=== PATIENT | male | born 1940 | race Caucasian/White ===

== ENCOUNTER 2019-09-23 14:07 | Outpatient (CLI) | payer MEDICARE, SELFPAY ==
--- NOTE | ~2019-09-23 | US_ITS ---
EXAMINATION: US art doppler w press LE BI DATE: 09/23/2019 15:04 INDICATION: Peripheral vascular disease. TECHNIQUE: Segmental pressures and plethysmographic and Doppler waveforms of the brachial and lower e xtremity arteries were obtained. COMPARISON: None. FINDINGS: Right and left brachial artery pressures of 102 mm Hg and 114 mm Hg, respectively, are concordant (no rmal difference <= 30 mmHg). The right high-thigh pressure index is 0.89 (normal > 1.2). The right ankle-brachial index (ANGELIQUE) is 0 .70 (normal >= 0.9-1.0). The right great toe-brachial index (TBI) is 0.57 (normal >= 0.65). The right lower extremity segmental pressure gradients are normal (normal gradients <= 20-30 mmHg between vel cent levels on the same leg or the same levels on the two legs). Arterial Doppler waveforms are at le ast triphasic in common femoral artery and superficial femoral artery and biphasic in popliteal arter y and at the ankle. The left high-thigh pressure index is 0.96. The left ANGELIQUE is 1.02. The left TBI is 0.51. The left lowe r extremity segmental pressure gradients are normal. Arterial Doppler waveforms are at least triphasi c in common femoral artery and superficial femoral artery and biphasic in popliteal artery and at the ankle. IMPRESSION: 1. Mildly decreased right ANGELIQUE and TBI, normal left ANGELIQUE, and mildly decreased left TBI, consistent wit h arterial occlusive disease. Reviewed, dictated and finalized at location A. IMPRESSION: 1. Mildly decreased right ANGELIQUE and TBI, normal left ANGELIQUE, and mildly decreased le ft TBI, consistent with arterial occlusive disease.
== END 2019-09-23 14:08 | disposition home or self-care (01) ==
PROVIDERS: PCP Internal Medicine; Visit Provider Internal Medicine
DX: I73.9 Peripheral vascular disease, unspecified (principal)
CPT/HCPCS: 93923

== ENCOUNTER → 2022-07-28 14:29 | Outpatient (CLI) | payer MEDICARE, SELFPAY ==
--- NOTE | ~2022-07-28 | CT_ITS ---
EXAMINATION: CT abdomen pelvis wo con DATE: 07/28/2022 14:47 INDICATION: Right flank pain. TECHNIQUE: Computed tomography (CT) of the abdomen and pelvis was performed without intravenous contr ast. Automated exposure control and iterative reconstruction technique were employed. The dose-length product was 867.15 mGy-cm. COMPARISON: None. FINDINGS: The visualized portions of the lung bases demonstrate mild atelectasis. There is elevation of left hemidiaphragm. There is mild atelectasis bilaterally. Calcified right lung nodules and calcif ied right hilar lymph nodes are consistent with old granulomatous disease. There are a few nodules in right lung measuring up to 6 mm. No pleural effusion. The heart size is normal. There are coronary a rtery calcifications. There are calcifications of aortic valve. No pericardial effusion. The liver is normal. There are changes of cholecystectomy. Calcifications in the spleen are consistent with old g ranulomatous disease. The pancreas, adrenal glands, and right kidney are normal. There is a 10 mm cys t in left kidney. There is no urolithiasis. The prostate is mildly enlarged. There is a right inguina l hernia containing fat. There are no dilated loops of bowel. The appendix is normal. There is calcif ied atherosclerosis of the aorta and many of the other arteries. There are no pathologically enlarged lymph nodes. There is no free intraperitoneal fluid. 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 There is mild thoracolumbar spondylosis. IMPRESSION: 1. No urolithiasis. 2. Right inguinal hernia containing fat. 3. 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 4. Pulmonary nodules measuring up to 6 mm, probably benign. Consider noncontrast low-dose chest CT in 6-12 months. Reviewed, dictated and finalized at location E. IMPRESSION: 1. No urolithiasis. 2. Right inguinal hernia containing fat. 3. 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 4. Pulmonary nodules measuring up to 6 mm, probably benign. Consider noncontras t low-dose chest CT in 6-12 months.
== END ==
PROVIDERS: PCP Internal Medicine; Visit Provider Internal Medicine
DX: K40.90 Unilateral inguinal hernia, without obstruction or gangrene, not specified as recurrent (principal); R91.8 Other nonspecific abnormal finding of lung field; I71.9 Aortic aneurysm of unspecified site, without rupture
CPT/HCPCS: 74176

== ENCOUNTER 2022-08-04 09:35 | Outpatient (CLI) | payer MEDICARE, SELFPAY ==
--- NOTE | 2022-08-04 11:00 | NEURO_ITS ---
Impression: # Complains of numbness of hands and decreased strength in muscles of hand on grasping the objects. # Left Carpal Tunnel Syndrome. # Left ulnar neuropathy. # Abnormal needle/EMG exam. Nerve Conduction Studies Anti Sensory Summary Table Stim Site NR Peak (ms) P-T Amp (?V) Site1 Site2 Delta-P (ms) Dist (cm) Richi (m/s) Left Median Anti Sensory (2-3nd Digit) Wrist 4.4 36.9 Wrist 2-3nd Digit 4.4 14.0 32 Wrist 4.5 35.1 Wrist 2-3nd Digit 4.4 14.0 32 Left Radial Anti Sensory (Base 1st Digit) Wrist 2.5 17.4 Wrist Base 1st Digit 2.5 0.0 Left Ulnar Anti Sensory (5th Digit) NO RESPONSE Wrist NR Wrist 5th Digit 14.0 Motor Summary Table Stim Site NR Onset (ms) O-P Amp (mV) Site1 Site2 Delta-0 (ms) Dist (cm) Richi (m/s) Left Median Motor (Abd Poll Brev) Wrist 5.1 2.3 Elbow Wrist 6.2 31.0 50 Elbow 11.3 1.7 Left Ulnar Motor (Abd Dig Minimi) Wrist 3.2 3.2 A Elbow Wrist 10.6 31.0 29 A Elbow 13.8 1.3 B Elbow Wrist 6.6 25.0 38 B Elbow 9.8 1.4 F Wave Studies NR F-Lat (ms) L-R F-Lat (ms) Left Median (Mrkrs) (Abd Poll Brev) 33.92 Left Ulnar (Mrkrs) (Abd Dig Min) 32.11 EMG Side Muscle Nerve Root Ins Act Fibs Amp Dur Recrt Comment Left 1stDorInt Ulnar C8-T1 Nml Nml Incr >12ms Reduced Left Ext Indicis Radial (Post Int) C7-8 Nml Nml Nml Nml Nml Left Ext Digitorum Radial (Post Int) C7-8 Nml Nml Nml Nml Nml Left BrachioRad Radial C5-6 Nml Nml Nml Nml Nml Left PronatorTeres Median C6-7 Nml Nml Incr >12ms Reduced Left Abd Poll Brev Median C8-T1 Nml Nml Incr >12ms Reduced Left ABD Dig Min Ulnar C8-T1 Nml Nml Incr >12ms Reduced MTDD
== END 2022-08-04 09:36 | disposition home or self-care (01) ==
LOC: ANHNEURO 09:37
PROVIDERS: PCP Internal Medicine; Visit Provider Internal Medicine
DX: G56.22 Lesion of ulnar nerve, left upper limb (principal); G56.02 Carpal tunnel syndrome, left upper limb
CPT/HCPCS: 95886; 95909

== ENCOUNTER 2022-09-05 21:15 | Observation (INO) | payer MEDICARE, SELFPAY ==
--- NOTE | ~2022-09-05 | XR_ITS ---
XR chest 2V DATE: 09/05/2022 21:59 INDICATION: Generalized weakness TECHNIQUE: PA and lateral views COMPARISON: None FINDINGS: Normal heart size. No hilar or mediastinal enlargement. Bilateral hyperinflation and relative flattening of the diaphragm, increased retrosternal airspace, s uggesting COPD. Probable linear scarring in the right upper lung. No pulmonary infiltrate or consolid ation, pleural effusion or pulmonary vascular congestion or pneumothorax is detected. Degenerative changes of the thoracic and lumbar spine. Osteopenia. IMPRESSION: Bilateral hyperinflation suggesting COPD Probable mild right upper lobe scarring No active cardiopulmonary disease Reviewed, dictated and finalized at location A.
--- NOTE | ~2022-09-05 | CT_ITS ---
EXAMINATION: CTA chest PE protocol DATE: 09/06/2022 01:26 INDICATION: Shortness of breath and back pain TECHNIQUE: Computed tomography angiography (CTA) of the chest was performed with 100 mL Omnipaque-350 intravenous contrast timed to evaluate the pulmonary arteries. Coronal maximum intensity projection 3D-reconstructions were created by the technologist. The dose-length product (DLP) was 740.88 mGy-cm. Automated exposure control and iterative reconstruction technique were employed. COMPARISON: None. FINDINGS: The pulmonary arteries are well-opacified. No pulmonary embolism is identified. Respiratory motion artifact mildly limits evaluation in the lung bases. There is moderate emphysema. There is a 1.5 cm spiculated nodule of the right upper lobe on image 26. A second spiculated right upper lobe no dule is seen on image 28 which measures 12 mm. There is right hilar and right paratracheal lymphadeno roberto. There is mild dependent atelectasis. No pleural effusion or pneumothorax. The heart size is no rmal. There is calcified coronary artery atherosclerosis. Punctate calcifications in an otherwise nor mal spleen likely represent healed granulomatous disease. Changes of cholecystectomy are noted. IMPRESSION: 1. No pulmonary embolus identified. 2. 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 CT-guided biopsy is recommended. Reviewed, dictated and finalized at location A. IMPRESSION: 1. No pulmonary embolus identified. 2. Right upper lobe nodules and right hilar and paratracheal lymphadenopathy co ncerning for primary bronchogenic carcinoma with lymph node metastases. CT-guid ed biopsy is recommended.
--- NOTE | ~2022-09-05 | CT_ITS ---
EXAMINATION: CT brain wo con INDICATION: Weakness COMPARISON: 02/04/2012 TECHNIQUE: Standard unenhanced head CT. The dose-length product (DLP) was 681.00 mGy-cm. The mA was a djusted according to patient size. Iterative reconstruction technique was employed. FINDINGS: There is no acute intraparenchymal hemorrhage. No evidence of mass lesion. No evidence of a cute infarction. 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 There is mild periventri cular and subcortical hypodensity probably related to small vessel ischemic disease. There is mild pr ominence of the sulci and ventricles related to cerebral atrophy. Intracranial calcified cerebral ath erosclerosis is noted. There are no extra-axial collections. There is no mass effect or midline shift . Changes in the globes are likely from ocular lens surgery. There is mild mucosal thickening of the paranasal sinuses. IMPRESSION: 1. No acute intracranial abnormality. 2. Age related findings. Reviewed, dictated and finalized at location A.
--- NOTE | 2022-09-05 21:22 | ECG_ITS ---
Measurements Intervals [place] Lee Rate: 101 P: 68 WY: 175 QRS: 54 QRSD: 98 T: 52 QT: 330 QTc: 429 Interpretive Statements SINUS TACHYCARDIA LOW QRS VOLTAGE IN PRECORDIAL LEADS BORDERLINE ECG NO PREVIOUS ECG AVAILABLE FOR COMPARISON Electronically Signed On 09-06-2022 7:10:40 CDT by Camilo Resendiz D.O.
[2022-09-05 21:23] VITALS: BP 114/70; PULSE 106; RESP 18; TEMP 37; O2SAT 92
[2022-09-05 22:00] VITALS: BP 141/74; PULSE 81; RESP 18; O2SAT 99
[2022-09-05 23:00] LABS: Basophils Percent Auto 0.5 % (0.2-1.2); Eosinophils Absolute Auto 0.1 K/mm3 (0-0.3); Eosinophils Percent Auto 1.5 % (0-4.4); Hematocrit 40.2 % (42.0-52.0); Immature Granulocyte Absolute 0.02 K/mm3 (0.00-0.031); Immature Granulocyte Percent A 0.3 % (0-0.5); Lymphocytes Absolute Auto 1.83 K/mm3 (0.9-3.2); Lymphocytes Percent Auto 23.1 % (18.3-44.2); Mean Corpuscular HGB Conc 32.3 g/dl (32-36); Mean Corpuscular Volume 89.7 fl (80-100); Mean Platelet Volume 10.1 fl (7.4-10.4); Monocytes Absolute Auto 0.7 K/mm3 (0.1-0.6); Monocytes Percent Auto 9.4 % (2.6-8.5); Neutrophils Absolute Auto 5.2 K/mm3 (1.3-6.7); Neutrophils Percent Auto 65.2 % (45.5-73.1); Platelet Count Result 189 k/mm3 (150-375); Red Blood Count 4.48 M/mm3 (4.6-6.20); White Blood Count 7.9 K/mm3 (4.5-10.0)
[2022-09-05 23:05] LABS: Appearance Urine Clear (Clear); Bacteria Urine None Seen /hpf; Bilirubin Urine Negative (Negative); Blood Urine Negative (Negative); Color Urine Yellow (Yellow); Glucose Urine UA Negative (Negative); Ketones Urine Trace mg/dL (Negative); Leukocyte Esterase Ur Negative LEU/UL (Negative); Nitrate Urine Negative (Negative); Protein Urine Trace mg/dL (Negative); RBC Urine 0-2 /hpf (0-2); Specific Grav Ur 1.023 (1.001-1.035); Squamous Epithelial Cell Urine None seen /hpf (Few); WBC Urine 0-5 /hpf; pH Urine 5.5 (5.0-9.0)
[2022-09-05 23:06] LABS: Add Urine Microscopic? YES
[2022-09-05 23:10] LABS: Alanine Aminotransferase 20 U/L (6-50); Albumin Level 4.2 g/dL (3.5-5.1); Alkaline Phosphatase 76 U/L (38-126); Anion Gap 7 mmol/L (8-16); Aspartate Amino Transferase 23 U/L (17-59); Bilirubin,Total 0.3 mg/dL (0.2-1.3); Blood Urea Nitrogen 31 mg/dL (9-20); Carbon Dioxide 27 mmol/L (22-30); Chloride 103 mmol/L (98-107); Estimated CRCL calculation 43 ml/min; Estimated Glomerular Filt Rate 49; Glucose 218 mg/dL (65-110); Potassium 4.7 mmol/L (3.4-5.0); Sodium 137 mmol/L (137-145)
--- NOTE | 2022-09-05 23:10 | ED.WEAKNESS ---
HPI - Weakness General Chief complaint: Weakness <YUAN Nicholson Last Filed: 09/06/22 03:00> Stated complaint: Generalized weakness <YUAN Nicholson Last Filed: 09/06/22 03:00> Time Seen by Provider: 09/05/22 22:46 <YUAN Nicholson Last Filed: 09/06/22 03:00> Source: patient <YUAN Nicholson Last Filed: 09/06/22 03:00> Mode of arrival: wheelchair <YUAN Nicholson Last Filed: 09/06/22 03:00> Limitations: no limitations <YUAN Nicholson Last Filed: 09/06/22 03:00> History of Present Illness HPI Narrative: This is a 82-year-old male that presents to the emergency department for generalized weakness. Noted over the last couple of days. Reports he feels lightheaded when he stands up. He has not been able to get around much because he feels so weak. His family member reports he has been getting short of breath. He reports he has been experiencing some mid back pain on the right side that has been present for about a month. No recent injuries. Reports the pain is worse with movement and relieved with rest. Denies fever, chest pain, abdominal pain, vomiting, or dysuria. <YUAN Nicholson Last Filed: 09/06/22 03:00> Related Data Home medications: Home Medications Medication Instructions Recorded Confirmed citalopram 20 mg tablet 20 mg PO DAILY 09/06/22 09/06/22 glimepiride 4 mg tablet 4 mg PO BID 09/06/22 09/06/22 lisinopril 20 mg tablet 20 mg PO DAILY 09/06/22 09/06/22 lorazepam 0.5 mg tablet 0.5 mg PO BID 09/06/22 09/06/22 metformin 1,000 mg tablet 1,000 mg PO BID 09/06/22 09/06/22 rosuvastatin 20 mg tablet 20 mg PO DAILY 09/06/22 09/06/22 <YUAN Nicholson Last Filed: 09/06/22 03:00> Allergies/Adverse reactions: Allergies Allergy/AdvReac Type Severity Reaction Status Date / Time codeine Allergy Verified 02/04/12 22:00 niacin Allergy Verified 02/04/12 22:00 <Cecille Guillory PA-C - Last Filed: 09/06/22 03:00> Review of Systems Review of Systems: CONSTITUTIONAL: Denies fever EYES: Denies visual changes ENT: Denies rhinorrhea, congestion, sore throat CARDIOVASCULAR: Denies chest pain, or edema. RESPIRATORY: Denies cough or dyspnea. GASTROINTESTINAL: Denies abdominal pain, nausea, vomiting GENITOURINARY: Denies dysuria MUSCULOSKELETAL: Reports back pain, joint pain, and myalgia. NEUROLOGIC: Reports generalized weakness. Denies numbness <Cecille Guillory PA-C - Last Filed: 09/06/22 03:00> All systems reviewed & are unremarkable except as noted in HPI and below <Cecille Guillory PA-C - Last Filed: 09/06/22 03:00> PMFSH Past Medical History Medical History: Medical History (Updated 09/06/22 @ 17:33 by Nancy Hardin MD) History of diabetes mellitus History of hypertension <Cecille Guillory PA-C - Last Filed: 09/06/22 03:00> Social History Social History: Social History (Updated 09/05/22 @ 23:20 by Cecille Guillory PA-C) Smoking packs per day: 0.25 Smoking cigarettes per day: 5.0 Years smoked: 60 Smoking pack-years: 15.00 Smoking status: Current every day smoker Tobacco type: cigarettes Second hand tobacco smoke exposure: Yes Alcohol intake: never Substance use: never Substance use type: does not use Lack of Transportation: No Lack of Food: Never True Current Housing: I Have Housing Concerned About Future Housing: No Difficulty Paying Gas/Electric Bills: No Difficulty Paying for Meds: No Currently Unemployed: No Education: Grade School Difficulty w/ Childcare or Family Care: No Spiritual care concerns: No <Cecille Guillory PA-C - Last Filed: 09/06/22 03:00> Exam Narrative: GENERAL: Elderly, well-nourished, and in no acute distress. HEAD: Normocephalic, atraumatic. EYES: PERRLA and EOMI. ENT: Nares clear, no rhinorrhea or epistaxis. Mucous membranes moist. Oropharynx without tonsillar hypertrophy exudate or other lesions. Bilat
[2022-09-05 23:31] LABS: Lactic Acid Reflex 1.1 mmol/L (0.7-2.0)
[2022-09-05 23:31] LABS: INR 1.1; Prothrombin Time 14.2 Seconds (11.1-14.7)
[2022-09-05 23:32] LABS: Partial Thromboplastin Time 31.5 SECONDS (22.3-36.8)
[2022-09-05 23:35] LABS: NT Pro B Type Natriuretic Pept < 20 pg/mL (19.9-100)
[2022-09-05 23:47] LABS: Troponin I < 0.012 ng/mL (0.000-0.034)
[2022-09-05 23:54] LABS: D Dimer 0.76 ug/mL (<0.48)
[2022-09-05 23:58] LABS: Lipase 153 U/L (23-300)
[2022-09-06] VITALS (15 sets, daily range): BP systolic 110–140; BP diastolic 66–96; PULSE 77–100; RESP 14–22; TEMP 36.2–36.9; O2SAT 91–97; BMI 29.7
[2022-09-06] MEDS: IPRATROPIUM BR 0.02% INH SOLN 0.5 MG/2.5 ML VIAL INHALATION ×2 (00:25→13:52)
[2022-09-06] MEDS: ALBUTEROL SULFATE NEB 2.5 MG/3 ML INH INHALATION ×3 (00:25→20:37)
[2022-09-06 00:32] LABS: Alveolar/Arterial O2 Gradient 43.6 mmHg; Base Excess ABG 0.2 mEq/l (+/-2.0); Carboxyhemoglobin 3.1 % THb (0-2.0); Fractional Inspired Oxygen 21 %; HCO3 ABG 24.7 mEq/l (22.0-26.0); Methemoglobin ABG 0.1 %THb (0-1.5); Oxygen Content ABG 16.6 %vol (16.0-22.0); Oxygen Saturation ABG 90.7 % (95.0-100.0); PCO2 ABG 39.8 mmHg (35.0-45.0); PO2 ABG 58.5 mmHg (80.0-100.0); PO2 FiO2 Ratio Arterial Blood 2.79 %; Reduced Hemoglobin 10.8 %THb (0-5.0); Total Hemoglobin 13.7 g/dL (12.0-18.0); pH ABG 7.411 (7.350-7.450)
[2022-09-06 00:35] LABS: Device ROOM AIR; Modified Allen's Test Pass; Site Drawn LEFT RADIAL
[2022-09-06] MEDS: methylPREDNISolone SOD SUCC 125 MG VIAL IV PUSH (03:12)
[2022-09-06 04:01] LABS: Glucose Point of Care 161 mg/dl (65-105)
--- NOTE | 2022-09-06 04:31 | ADMGEN ---
This patient, Michele Watson, was admitted to [facility] Surg Room 322-01. Patient/family oriented to hospital policies and general routines including ID bracelet, bed and alarms, visiting hours, pain management, procedures, bathroom and other care routines, personal items, smoking policy, room service/diet, and visiting hours. Information on how to activate the Rapid Response Team has been discussed. Patient/Family are encouraged to report perceived risks to care and to ask questions if they do not understand what they are told or what they should do.
[2022-09-06 08:05] LABS: Glucose Point of Care 269 mg/dl (65-105)
--- NOTE | 2022-09-06 08:43 | PM.IMHP ---
H&P: HPI History of Present Illness Date/Time: 09/06/22 08:43 Chief Complaint: Shortness of breath Narrative: This is a 82-year-old male that presents to the emergency department for generalized weakness.? Noted over the last couple of days. Reports he feels lightheaded when he stands up. He has not been able to get around much because he feels so weak. His family member reports he has been getting short of breath. He reports he has been experiencing some mid back pain on the right side that has been present for about a month. No recent injuries. Reports the pain is worse with movement and relieved with rest. Denies fever, chest pain, abdominal pain, vomiting, or dysuria. Review of Systems Review of Systems: - CONSTITUTIONAL: Denies weight loss, fever and chills. - HEENT: Denies changes in vision and hearing - RESPIRATORY: Reports some sOB and cough. Which is chronic - CV: Denies palpitations and CP. - GI: Denies abdominal pain, nausea, vomiting and diarrhea. - : Denies dysuria and urinary frequency. - MSK: Denies myalgia and joint pain. - SKIN: Denies rash and pruritus. - NEUROLOGICAL: Denies headache and syncope. - PSYCHIATRIC: Denies recent changes in mood. Denies anxiety and depression. [facility] Past Medical History Medical History (Updated 09/06/22 @ 03:00 by Cecille Guillory PA-C) History of diabetes mellitus History of hypertension Social History Social History (Updated 09/05/22 @ 23:20 by Cecille Guillory PA-C) Smoking packs per day: 0.25 Smoking cigarettes per day: 5.0 Years smoked: 60 Smoking pack-years: 15.00 Smoking status: Current every day smoker Tobacco type: cigarettes Second hand tobacco smoke exposure: Yes Alcohol intake: never Substance use: never Substance use type: does not use Lack of Transportation: No Lack of Food: Never True Current Housing: I Have Housing Concerned About Future Housing: No Difficulty Paying Gas/Electric Bills: No Difficulty Paying for Meds: No Currently Unemployed: No Education: Grade School Difficulty w/ Childcare or Family Care: No Spiritual care concerns: No Meds Home Medications and Allergies Allergies Allergy/AdvReac Type Severity Reaction Status Date / Time codeine Allergy Verified 02/04/12 22:00 niacin Allergy Verified 02/04/12 22:00 Vital Signs Vital Signs - 24 hr 09/05/22 21:23 09/06/22 00:26 09/05/22 22:00 Temperature 98.6 F Pulse Rate 106 H 88 81 Respiratory Rate 18 16 18 Blood Pressure 114/70 141/74 H Pulse Oximetry 92 99 Oxygen Delivery Room Air 09/06/22 01:06 09/06/22 02:11 09/06/22 03:59 Temperature Pulse Rate 84 94 89 Respiratory Rate 16 16 22 H Blood Pressure 140/78 118/88 110/68 Pulse Oximetry 97 92 97 Oxygen Delivery 09/06/22 04:33 09/06/22 05:20 Temperature 98.4 F Pulse Rate 84 87 Respiratory Rate 20 Blood Pressure 111/96 H Pulse Oximetry 94 96 Oxygen Delivery Room Air Exam Narrative: GENERAL: Elderly, well-nourished, and in no acute distress. HEAD: Normocephalic, atraumatic. EYES: PERRLA and EOMI. ENT: Nares clear, no rhinorrhea or epistaxis. Mucous membranes moist. NECK: Supple. No adenopathy or masses. CHEST: No respiratory distress.? No wheezes no rales or rhonchi HEART: Regular rate and rhythm. No murmur heard. Normal peripheral pulses. ABDOMEN: Soft, nontender, nondistended, normal active bowel sounds. BACK: No midline spinal tenderness EXTREMITIES: Normal range of motion. No edema.? Strength equal in bilateral upper and lower extremities (5/5) SKIN: Warm, dry, no rash. NEURO: No focal deficits. Alert and oriented x3.? Cranial nerves II through XII grossly intact PSYCH: Normal mood and affect H&P: Results Labs Labs: Short CBC 09/05/22 Range/Units 22:53 WBC 7.9 (4.5-10.0) K/mm3 Hgb 13.0 L (14.0-18.0) g/dL Hct 40.2 L (42.0-52.0) % Plt Count 189 (150-375) k/mm3 [facility] 09/05/22 22:53 Sod
[2022-09-06 09:35] LABS: Hemoglobin A1C 6.8 % (<5.7)
[2022-09-06] MEDS: ENOXAPARIN 40 MG/0.4 ML SYRINGE SUB-Q (10:45)
[2022-09-06 11:53] LABS: Glucose Point of Care 448 mg/dl (65-105)
[2022-09-06] MEDS: INSULIN ASPART (*BKC) 100 UNITS/ML 15 UNITS SUB-Q (12:11)
[2022-09-06] MEDS: methylPREDNISolone SOD SUCC 40 MG VIAL IV PUSH (12:15)
--- NOTE | 2022-09-06 13:50 | PCRCNOTE ---
Window of time for administration has passed. See next scheduled administration.
--- NOTE | 2022-09-06 16:10 | PM.CNPUL ---
Assessment and Plan Assessment and plan (1) COPD exacerbation: Code(s): J44.1 - Chronic obstructive pulmonary disease with (acute) exacerbation Status: Acute Assessment and Plan: This patient has a new diagnosis of COPD with exacerbation. He has smoked since age 18, a total of 66 years and many of those years he smoked 3 packs per day, probably 15 years. Several days prior to admission he had generalized weakness, low saturation, increased coughing with white sputum production. He had a COPD exacerbation and is on no controller medications at home. He required oxygen on admission, now is saturation is normal without supplemental oxygen. After admission he was found to have abnormal nodules on his chest CT. Has 2 nodules in the right upper lobe and mediastinal lymphadenopathy and hilar nodules. I think the best option for this patient is to be stabilized, go home with a home walk study before leaving to assure that he has oxygen if he needs it. He needs to be on COPD controller medication. He needs an outpatient PET scan to determine best location for a biopsy. start Trelegy 100, one puff a day, rinse and spit. (2) Acute respiratory failure with hypoxia: Code(s): J96.01 - Acute respiratory failure with hypoxia Status: Acute Assessment and Plan: He came in the hospital hypoxic, required a couple of L which has now been weaned off. I think the low oxygen was due to underlying COPD with a COPD exacerbation. Home O2 evaluation prior to discharge (3) Multiple pulmonary nodules determined by computed tomography of lung: Code(s): R91.8 - Other nonspecific abnormal finding of lung field Status: Acute Assessment and Plan: High suspicion for bronchogenic carcinoma. He has got nodules that are in the range that he could have them biopsied CT guidance while he is here but if he could get an EBUS with mediastinal biopsy this would stage and diagnose at the same time. (4) Tobacco abuse: Code(s): Z72.0 - Tobacco use Status: Acute Assessment and Plan: smoked for 64 years, also uses chewing tobacco We briefly discussed tobacco cessation, and his daughter asked if he could chew while he is trying to stop smoking. This is a great plan is on the eventually gets off chewing tobacco as well. Soon tobacco is associated with head neck cancer. He also needs avoid secondhand smoke, his smokes. . (5) Obstructive sleep apnea: Code(s): G47.33 - Obstructive sleep apnea (adult) (pediatric) Status: Acute Assessment and Plan: Obstructive sleep apnea for 10 years, using his own CPAP machine in the hospital which is about 5 years old. He may need a repeat study. He does not awaken feeling refreshed. His obstructive sleep apnea may improve when he gets treatment for COPD because he has COPD obstructive sleep apnea overlap. Continue to use CPAP; he benefits from use. (6) History of asbestosis: Code(s): Z87.09 - Personal history of other diseases of the respiratory system Status: Acute Assessment and Plan: I do not see ILD, pleural plaques or other definitive evidence of asbestos exposure. He has this diagnosis. He had a settlement years ago for this condition. Asbestos and tobacco have a log rhythmic increase affecting causing cancer. His daughter said he had a history of mesothelioma but the patient corrected this information, he has a history of asbestosis. Plan 1. Add COPD controller meds 2. Home O2 eval prior to discharge 3. out patient PET scan; Dr Coleman
[2022-09-06] MEDS: LORazepam (*CRX) 0.5 MG TABLET PO (17:24)
[2022-09-06 17:25] LABS: Glucose Point of Care 395 mg/dl (65-105)
[2022-09-06] MEDS: INSULIN ASPART (*BKC) 100 UNITS/ML SUB-Q ×2 (17:25)
[2022-09-06] MEDS: DOXYCYCLINE HYCLATE 100 MG TABLET PO (21:19)
[2022-09-06] MEDS: INSULIN GLARGINE (*BKC) 100 UNITS/ML 13 UNITS SUB-Q (21:45)
[2022-09-06 21:57] LABS: Glucose Point of Care 316 mg/dl (65-105)
[2022-09-07] VITALS (11 sets, daily range): BP systolic 110; BP diastolic 64; PULSE 71–118; RESP 16; TEMP 36.4; O2SAT 91–97
[2022-09-07] MEDS: ALBUTEROL SULFATE NEB 2.5 MG/3 ML INH INHALATION ×2 (02:12→07:45)
[2022-09-07 07:45] LABS: Glucose Point of Care 247 mg/dl (65-105)
[2022-09-07] MEDS: FLUTICASONE/UMECLIDIN/VILANTER 100-62.5-25 MCG ELLIPTA 1 PUFF INHALATION (07:48)
[2022-09-07] MEDS: INSULIN ASPART (*BKC) 100 UNITS/ML SUB-Q ×2 (09:12)
[2022-09-07] MEDS: DOXYCYCLINE HYCLATE 100 MG TABLET PO (09:12)
[2022-09-07] MEDS: CITALOPRAM HYDROBROMIDE 20 MG TABLET PO (09:13)
[2022-09-07] MEDS: ROSUVASTATIN 10 MG TABLET 20 MG PO (09:13)
[2022-09-07] MEDS: LORazepam (*CRX) 0.5 MG TABLET PO (09:13)
[2022-09-07] MEDS: ENOXAPARIN 40 MG/0.4 ML SYRINGE SUB-Q (09:13)
[2022-09-07] MEDS: lisinopriL 20 MG TABLET PO (09:13)
--- NOTE | 2022-09-07 09:59 | HOMEO2EVAL ---
Evaluation was performed at [facility] Home Oxygen Evaluation RC: Home Oxygen (O2) Evaluation Start: 09/06/22 17:35 Freq: ONCE Status: Active Protocol: RPE Activity Type Activity Date Activity User E-sign Co-sign Detail Recorded Client Recorded Date Recorded By Document 09/07/22 09:15 [facility] [email or web address] 09/07/22 09:59 [facility] Document 09/07/22 09:20 [facility] [email or web address] 09/07/22 09:59 [facility] Document 09/07/22 09:40 [facility] [email or web address] 09/07/22 09:59 [facility] 09/07/22 09/07/22 09/07/22 09:15 09:20 09:40 Home O2 Evaluation [Oxygen] -Test Phase Resting Exercise Resting -Oxygen Delivery Room Air Room Air Room Air [Pulse Oximetry] -Pulse Oximetry (90-100 %) 92 91 92 [Pulse Rate] -Pulse Rate (60-100 beats/min) 110 H 118 H 112 H [Evaluation] -Activity Tolerance Good Good [Charges] -Treatment Charges O2 Evaluation - Inpatient
--- NOTE | 2022-09-07 09:59 | PCRCNOTE ---
Home eval complete. Patient does not require home O2 at this time. RN notified.
--- NOTE | 2022-09-07 10:00 | PCPTNOTE ---
On 09/07/22, the student, CHANTALE Mak, provided care and completed [facility] documentation on this patient. I have reviewed the student's documentation and agree with the findings.
--- NOTE | 2022-09-07 11:16 | PM.DS ---
DS: Admitting Diagnosis Discharge Date 09/07/2022 Admitting Diagnosis Shortness of breath DS: Discharge Diagnosis Discharge Diagnosis (1) Acute respiratory failure with hypoxia: Code(s): J96.01 - Acute respiratory failure with hypoxia Status: Acute (2) Generalized weakness: Code(s): R53.1 - Weakness Status: Acute (3) COPD exacerbation: Code(s): J44.1 - Chronic obstructive pulmonary disease with (acute) exacerbation Status: Acute (4) Lung mass: Code(s): R91.8 - Other nonspecific abnormal finding of lung field Status: Acute Plan Generalized weakness/dyspnea on exertion noted to be mildly hypoxic on room air upon presentation to the ER. Also noted to be wheezy. Treated as COPD exacerbation. Currently not wheezy so will avoid further Solu Medrol. Continue bronchodilators. Had antibiotic with doxycycline. Will PT OT Generalized weakness/dyspnea on exertion COPD exacerbation will continue DuoNeb and antibiotics. As he is not wheezy will avoid any Solu-Medrol particularly with history of diabetes 1.4 cm right upper lobe spiculated nodule CTA with findings of lymphadenopathy consult for further workup elevated D-dimer: CT is negative for PE. 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 DVT prophylaxis Lovenox DS: Summary Hospital Course Reason for hospitalization: Shortness of breath Narrative: This is a 82-year-old male that presents to the emergency department for generalized weakness.? Noted over the last couple of days. Reports he feels lightheaded when he stands up. He has not been able to get around much because he feels so weak. His family member reports he has been getting short of breath. He reports he has been experiencing some mid back pain on the right side that has been present for about a month. No recent injuries. Reports the pain is worse with movement and relieved with rest. Denies fever, chest pain, abdominal pain, vomiting, or dysuria. Hospital Course: 82 y/o with with COPD and presented with shortness of breath was seen by Dr. Hardin and recommended start patient on Treley 100, 1 puff q daily, home oxygen evaluation and will follow up as an outpatient or PET scan to further evaluate lung nodules, patient is clinically stable will discharge patient today. Time Spent with Patient Time attestation: Total time spent providing and/or coordinating discharge services: Exam Narrative: Patient is comfortable, NAD HEENT: eyes are clear and none icteric LUNGS:CTA HEART: RR S1S2 ABD: BS+, Soft and nontender Lower extremities: no edema SKIN: nonjaundiced Neuro: grossly intact. DS: Data Data Completed and Pending Labs on day of discharge: Labs from last 24 hours 09/07/22 09/06/22 09/06/22 07:38 21:41 17:08 POC Capillary Glucose 247 H 316 H 395 H 09/06/22 11:05 POC Capillary Glucose 448 H Discharge Plan Discharge Attending physician on discharge: Tunde Urena Consulting providers: Nancy Hardin; Cecille Guillory; Camilo Resendiz; Mykel Boyle; Marcell Sweeney Discharging Clinician: Tunde Urena Patient Disposition: Home, Self-Care Activity: as tolerated Diet: heart healthy Discharge Instructions: Patient to follow up with Dr Hardin and his primary care provider as soon as possible, patient is instructed, if any symptoms worsen to go to nearest ER. Patient Instructions: Antibiotic Form, How to Stop Smoking (DC), Pain Management in Older Adults (GEN) Stand Alone Forms: General Discharge Information Follow-up/Referrals: Nancy Hardin MD [Physician] - Dutton,Silvio Joshi MD [Primary Care Provider] - Discharge Medications: New albuterol sulfate 2.5 mg /3 mL (0.083 %) Solution For Nebulization 2.5 mg inhalation Q6HRT Qty: 75 0RF doxycycline hyclate 100 mg Tablet 100 mg PO Q12HR Qty: 10
== END 2022-09-07 12:20 | disposition home or self-care (01) ==
LOC: ANHED 09-06 02:32 → ANH3MEDSUR 09-06 05:11
PROVIDERS: Emergency Medicine; Internal Medicine; Admitting Provider Internal Medicine; Emergency Provider Physician Assistant; PCP Internal Medicine; Visit Provider Family Medicine
DX: J96.01 Acute respiratory failure with hypoxia (principal); J44.1 Chronic obstructive pulmonary disease with (acute) exacerbation; R91.8 Other nonspecific abnormal finding of lung field; R53.1 Weakness; R42 Dizziness and giddiness; G31.9 Degenerative disease of nervous system, unspecified; R90.82 White matter disease, unspecified; M54.9 Dorsalgia, unspecified; E11.9 Type 2 diabetes mellitus without complications; G47.33 Obstructive sleep apnea (adult) (pediatric); Z99.89 Dependence on other enabling machines and devices; I10 Essential (primary) hypertension; D64.9 Anemia, unspecified; R00.0 Tachycardia, unspecified; F17.210 Nicotine dependence, cigarettes, uncomplicated; Z87.09 Personal history of other diseases of the respiratory system; Z79.84 Long term (current) use of oral hypoglycemic drugs; Z79.899 Other long term (current) drug therapy
CPT/HCPCS: 36415; 36600; 70450; 71046; 71275; 80053; 81001; 82375; 82805; 82948; 83036; 83050; 83605; 83690; 83880; 84484; 85025; 85380; 85610; 85730; 93005; 94618; 94640; 96372; 96374; 96376; 97110; 97116; 97161; 97165; 97530; 97535; 99285; A9270; G0378; J1650; J1815; J2920; J2930; Q9967

== ENCOUNTER 2022-09-15 10:20 | Outpatient (CLI) | payer MEDICARE, SELFPAY ==
--- NOTE | ~2022-09-15 | PE_ITS ---
EXAMINATION: PET skull to mid thigh DATE: 09/15/2022 12:36 INDICATION: Lung nodule TECHNIQUE: Blood glucose level was 53 mg/dL. 11.047 mCi of 18-fluorodeoxyglucose (18-FDG) was adminis tered i.v. Low dose computed tomography (CT) images were acquired from the base of the brain to the p roximal thighs for attenuation correction and anatomic localization. Positron emission tomography (PE T) images were acquired in the same distribution beginning 70 minutes after injection. Images includi ng fused PET/CT images were reconstructed in axial, coronal, and sagittal planes. Automated exposure control technique was employed. The dose-length product was 842.70mGy-cm. COMPARISON: Chest CT dated 09/06/2022 FINDINGS: Head/neck: There is symmetric increased activity in the oral cavity, palatine tonsils, parotid glands, submandi bular glands, laryngeal muscles and ocular muscles without CT correlate, likely physiologic. No patho logically enlarged cervical lymphadenopathy or suspicious foci of increased FDG uptake in the visuali zed head or neck. Chest: Moderate emphysema. No significant FDG uptake with maximal SUV of 1.7 associated with the 1.3 cm righ t upper lobe nodule. No abnormally increased FDG uptake along a peripheral band of atelectasis/scarri ng at the posterolateral right upper lobe. There are a few scattered bilateral small calcified pulmon gurjit nodules along with calcified bilateral hilar and lower mediastinal lymph nodes consistent with ol d granulomatous disease. 6 mm pleural-based nodule in the right middle lobe without evident FDG activ ity. Mild bibasilar atelectasis. Heart size is normal. Atherosclerotic coronary artery calcification. No pericardial or pleural effusion. Thoracic aorta is normal in caliber. Moderate FDG uptake with ma ximal SUV of 11.8 associated with a 1.8 cm right paratracheal lymph node. Significantly less intense FDG uptake associated with a few of the partially calcified bilateral hilar lymph nodes. Mild uptake with maximal SUV of 4.1 cm with a high right paratracheal lymph node which measures 8 mm in short axi s diameter situated anterior to the left subclavian artery which measures 8 mm in short axis diameter and with maximal SUV of 4.2 associated with a prevascular lymph node measuring 7 mm maximal short ax is diameter near the origin of the innominate and left common carotid arteries. There is linear exten dominguez of FDG uptake along the midthoracic right paraspinal musculature without radiologic correlate wh ich is likely physiologic. Abdomen/pelvis/proximal thighs: Physiologic renal accumulation and excretion of FDG activity in the kidneys, bladder and along portio ns of ureters. Normal degree and heterogenous pattern of increased uptake throughout the liver withou t radiologic correlate or dominant FDG avid lesion. Cholecystectomy clips at the gallbladder fossa. T he pancreas, spleen and bilateral adrenal glands are normal. Moderate uptake scattered throughout the bowels without radiologic correlate, also likely physiologic. There are scattered colonic diverticul a without adjacent inflammatory stranding to suggest diverticulitis. Normal appendix. No other abnorm al foci of increased FDG uptake or pathologically enlarged lymphadenopathy in the abdomen, pelvis or proximal thighs. Musculoskeletal: There is likely degenerative synovial uptake without radiologic correlate/with the right acromioclavi cular and left glenohumeral joints. No suspicious lytic, blastic or abnormally FDG avid bone lesions. IMPRESSION: 1. Mild to moderate uptake associated with several mediastinal and bilateral hilar lymph nodes most p rominent at 1.8 cm right paratracheal lymph node. This could be reactive, metastatic or related to ly mphoma. Could consider ultrasound-guided endobronchial (EBUS) biopsy of the paratracheal lymph node. 2. No significant increased FDG uptake associated with the previous noted 1.3 similar right
[2022-09-15 10:59] LABS: Glucose Point of Care 53 mg/dl (65-105)
== END 2022-09-15 10:21 | disposition home or self-care (01) ==
PROVIDERS: PCP Internal Medicine; Visit Provider Internal Medicine
DX: R91.8 Other nonspecific abnormal finding of lung field (principal)
CPT/HCPCS: 78815; A9552

== ENCOUNTER 2022-10-12 15:19 | Outpatient (CLI) | payer MEDICARE, SELFPAY ==
--- NOTE | ~2022-10-12 | MR_ITS ---
EXAMINATION: MR lumbar spine wo con DATE: 10/12/2022 16:02 INDICATION: Muscle weakness. Low back pain. TECHNIQUE: Magnetic resonance imaging (MRI) of the lumbar spine was performed without intravenous con trast. Sequences included sagittal T2-weighted FSE, sagittal T2-weighted FS FSE, sagittal T1-weighted FSE, and axial T2-weighted FSE. COMPARISON: None FINDINGS: There is 5 degrees levocurvature of lumbar spine. Vertebral body heights and intervertebral disc heights are normal. The distal spinal cord signal intensity is normal. The conus medullaris is at L1. The following disc levels are specifically discussed: L1-L2: The disc does not extend beyond the endplate margin. There is mild bilateral facet joint osteo arthritis. There is no neural foraminal stenosis. There is no central canal stenosis. L2-L3: The disc is bulging. There is moderate and mild left facet joint osteoarthritis. There is mild left neural foraminal stenosis. There is no central canal stenosis. L3-L4: The disc is bulging. There is mild bilateral facet joint osteoarthritis. There is mild left ne ural foraminal stenosis. There is no central canal stenosis. L4-L5: The disc is bulging and has an annular fissure. There is severe bilateral facet joint osteoart hritis. There is mild bilateral neural foraminal stenosis. There is mild central canal stenosis. L5-S1: The disc is bulging and has an annular fissure. There is moderate bilateral facet joint osteoa rthritis. There is mild bilateral neural foraminal stenosis. There is mild central canal stenosis. IMPRESSION: 1. Mild lumbar spondylosis. Reviewed, dictated and finalized at location A. IMPRESSION: 1. Mild lumbar spondylosis.
== END 2022-10-12 15:20 | disposition home or self-care (01) ==
LOC: ANHIMG 15:20
PROVIDERS: PCP Internal Medicine; Visit Provider Internal Medicine
DX: M62.18 Other rupture of muscle (nontraumatic), other site (principal); M47.816 Spondylosis without myelopathy or radiculopathy, lumbar region
CPT/HCPCS: 72148

== ENCOUNTER 2022-10-27 00:46 | Day surgery (SDC) | payer MEDICARE, SELFPAY ==
--- NOTE | 2022-10-24 13:13 | PC.NURSE ---
Report to the Outpatient Waiting Room, entrance under the green pavilion located off [facility], at time ___1000____ on date __10/27/22 . Planned Procedure Time: _1200 . Time changes happen often and if your time is changed the preop area will call you the afternoon before. - You and your visitor will be asked to self-screen and do not enter if you have any COVID symptoms. - A mask is optional within the hospital at this time. Patients may have clear liquids (water, carbonated beverages, clear teas, apple juice) until 3 hours prior to surgery with a maximum of 20 ounces. - No food from midnight until time of surgery - Infants may have breast milk until 4 hours before surgery, infant formula 6 hours prior to surgery. - Children will be allowed to drink immediately following surgery. If applicable, please bring a bottle or sippy cup to assist with drinking. Juice, water, soda, and popsicles are readily available. For infants on formula, please bring formula the day of surgery. Pacifiers are allowed. Take the following medications with a SIP of water the morning of surgery: __TRELEGY INHALER,CITALOPRAM,LORAZEPAM DO NOT STOP ANY OF YOUR OTHER PRESCRIPTION MEDICATIONS PRIOR TO SURGERY ?EXCEPT THE FOLLOWING Medications to discontinue per physician NONE Please no make-up, nail colombian, hairspray, perfume, deodorant, or body powder the day of surgery. No jewelry (including any body piercings) or valuables the day of surgery, leave them at home. Please take a shower or bath the night before, or the morning of, surgery with an antibacterial soap. Wear comfortable, loose fitting clothing. Children are encouraged to wear pajamas. - Jewelry must be removed prior to entering the operating room. Rings and piercings that are not removed may be cut off. - The hospital will not accept responsibility for valuables. - Please leave all valuables, including medications, at home the day of surgery. If you are going home after surgery, a licensed maintenance truck driver must drive you home. - NO public transportation without another adult if you receive anesthesia. - We recommend that an adult stay with you for 24 hours following discharge. - We also recommend that you do not drive, make important decision, drink alcoholic beverages, or take any drugs that were not prescribed by your health care provider for at least 24 hours after your discharge time. For Pediatric surgeries, we recommend two adults accompany the child home. Follow any additional instructions given to you from your surgeon. If you or anyone in your household have experienced Covid symptoms in the past week, please notify your surgeon or the nurse liaison at the phone number below for possible testing. Telephone instructions given to __PT'S DAUGHTER DIAN and asked if any additional questions and then verbalized understanding. Patient advised to call surgeon office or pre surgery nurse liaison [phone] if any additional questions.
[2022-10-24 13:18] VITALS: BMI 26.5
--- NOTE | 2022-10-26 17:51 | PM.SD2 ---
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 He is to undergo chemo radiation therapy. He was recommended to have Port-A-Cath placement by his oncologist and is admitted now for outpatient surgery to place Port-A-Cath in anticipation of his chemotherapy. He is also an insulin-dependent diabetic. ON LICENSE OF [facility] Past Medical History Medical History History of diabetes mellitus History of hypertension Social History Social History Smoking packs per day: 1 Smoking cigarettes per day: 20.0 Years smoked: 60 Smoking pack-years: 60.00 Smoking status: Current every day smoker Tobacco type: cigarettes Second hand tobacco smoke exposure: Yes Additional smoking assessment comments: SMOKES 0.5 PPD FOR ABOUT 2 YEARS NOW Alcohol intake: never Substance use: never Substance use type: does not use Lack of Transportation: No Lack of Food: Never True Current Housing: I Have Housing Concerned About Future Housing: No Difficulty Paying Gas/Electric Bills: No Difficulty Paying for Meds: No Currently Unemployed: No Education: Grade School Difficulty w/ Childcare or Family Care: No Living arrangements: with family Occupation/Education: retired Gender identity (if verbalized by the patient): Male Spiritual care concerns: No Same Day Admit/Disch: Med Pre-admit Medications Home Medications Medication Instructions Recorded Confirmed Type citalopram 20 mg tablet 20 mg PO DAILY 09/06/22 10/24/22 History glimepiride 4 mg tablet 4 mg PO BID 09/06/22 10/24/22 History lisinopril 20 mg tablet 20 mg PO DAILY 09/06/22 10/24/22 History lorazepam 0.5 mg tablet 0.5 mg PO BID 09/06/22 10/24/22 History metformin 1,000 mg tablet 1,000 mg PO BID 09/06/22 10/24/22 History rosuvastatin 20 mg tablet 20 mg PO DAILY 09/06/22 10/24/22 History fluticasone fur. 100 mcg-umeclid 1 inh inhalation DAILYRT #60 ea 09/07/22 10/24/22 Rx 62.5 mcg-vilant 25 mcg inhalat.powder (Trelegy Ellipta) albuterol sulfate 2.5 mg/3 mL 2.5 mg inhalation Q6HRT PRN 10/24/22 10/24/22 History (0.083 %) solution for nebulization Shortness Of Breath insulin degludec 100 unit/mL (3 15 unit subcut DAILY 10/24/22 10/24/22 History mL) subcutaneous pen (Tresiba FlexTouch U-100 insulin) ibuprofen 600 mg tablet 600 mg PO Q6H PRN pain #14 tabs 10/27/22 Rx oxycodone-acetaminophen 5 mg-325 0.5 - 1 tablet PO Q6H PRN pain #10 10/27/22 Rx mg tablet tabs Review of Systems Review of Systems All systems reviewed & are unremarkable except as noted in HPI and below (HPI and those items noted below) Constitutional Constitutional: Denies chills and Denies fever(s) Cardiovascular Cardiovascular: Denies chest pain, Denies diaphoresis, Denies dyspnea and Denies paroxysmal nocturnal dyspnea Respiratory Respiratory: Denies chest congestion, Denies cough and Denies dyspnea Integumentary/Breasts Skin/Breast: Denies lesions and Denies rash Exam Const: General: comfortable, no acute distress, alert and awake HENMT: Head: normocephalic and atraumatic Mouth: Yes Normal oral and palatal mucosa present Eyes: Conjunctivae: conjunctivae normal Pupils: Equal, round and reactive pupils present EOM: EOMs intact bilaterally Neck: Neck: normal visual inspection, no lymphadenopathy and nontender Resp: Effort & Inspection: normal respiratory effort Auscultation: clear to auscultation bilaterally Cardio: Rate: regular rate Rhythm: regular rhythm Heart sounds: no gallops, no murmurs and no rubs GI: Inspection: non-distended GI Palp: Yes Soft to palpation, No Tenderness to palpation present (GI), No Hepatomegaly present and No Sp
--- NOTE | ~2022-10-27 | XR_ITS ---
XR chest port-a-cath/central 10/27/2022 09:10 Indication: Insertion of portacatheter Procedure: AP portable chest Comparison: 09/05/2022 Findings: Left IJ portacatheter tip in the SVC. There are coarse interstitial infiltrates of the righ t upper lobe which are slightly more prominent than on prior study allowing for technique. Cannot exc lude superimposed pneumonia. Possible small left effusion versus pleural thickening. Impression: 1: Left IJ portacatheter tip in the SVC. No pneumothorax. 2: Progression of interstitial infiltrates of the right upper lobe, suspicious for pneumonia. Reviewed, dictated and finalized at location L. Impression: 1: Left IJ portacatheter tip in the SVC. No pneumothorax. 2: Progression of interstitial infiltrates of the right upper lobe, suspicious for pneumonia.
--- NOTE | ~2022-10-27 | XR_ITS ---
EXAMINATION: XR fl guide central line place DATE: 10/27/2022 08:38 INDICATION: Port placement. TECHNIQUE: 2 intraoperative fluoroscopic views of the chest were obtained. I was not present. Fluoros copy exposure time was 39 seconds. COMPARISON: Chest CT 09/06/2022 FINDINGS: There is a left internal jugular port with tip in superior vena cava. IMPRESSION: 1. Left internal jugular port with tip in superior vena cava. Reviewed, dictated and finalized at location A.
[2022-10-27] MEDS: LACTATED RINGERS 1,000 ML 30 ML IV CONT (06:35)
[2022-10-27] MEDS: KETOROLAC 15 MG/ML VIAL (*BKC) IV PUSH (06:35)
[2022-10-27 06:42] LABS: Glucose Point of Care 89 mg/dl (65-105)
--- NOTE | 2022-10-27 07:11 | WPDHPUPDATE1 ---
History and Physical Update Update Date/Time: 10/27/22 07:11 History and Physical has been reviewed, including an updated exam of the patient. There are NO changes in the patient's condition. Risks, benefits, and alternatives have been discussed and questions answered. Patient agrees to proceed with procedure.
--- NOTE | 2022-10-27 07:12 | WPDANESEPPF ---
Anes - Initial Pre Proc Eval Procedure: Operation Date: 10/27/22 07:30 Proposed Procedures p Insertion Becca Cath - Raul Black MD Date/Time: 10/27/22 07:12 Surgeon: Raul Black MD Pre Op Diagnosis: non small cell lung cancer Patient Data Age: 82 Gender: M Height: 1.78 m Weight: 83.95 kg Allergies Allergy/AdvReac Type Severity Reaction Status Date / Time codeine Allergy heartache Verified 10/24/22 12:40 niacin Allergy Flushing Verified 10/24/22 12:40 Home Medications Medication Instructions Recorded Confirmed Type citalopram 20 mg tablet 20 mg PO DAILY 09/06/22 10/24/22 History glimepiride 4 mg tablet 4 mg PO BID 09/06/22 10/24/22 History lisinopril 20 mg tablet 20 mg PO DAILY 09/06/22 10/24/22 History lorazepam 0.5 mg tablet 0.5 mg PO BID 09/06/22 10/24/22 History metformin 1,000 mg tablet 1,000 mg PO BID 09/06/22 10/24/22 History rosuvastatin 20 mg tablet 20 mg PO DAILY 09/06/22 10/24/22 History fluticasone fur. 100 mcg-umeclid 1 inh inhalation DAILYRT #60 ea 09/07/22 10/24/22 Rx 62.5 mcg-vilant 25 mcg inhalat.powder (Trelegy Ellipta) albuterol sulfate 2.5 mg/3 mL 2.5 mg inhalation Q6HRT PRN 10/24/22 10/24/22 History (0.083 %) solution for nebulization Shortness Of Breath insulin degludec 100 unit/mL (3 15 unit subcut DAILY 10/24/22 10/24/22 History mL) subcutaneous pen (Tresiba FlexTouch U-100 insulin) Laboratory Tests 10/27/22 06:38 POC Capillary Glucose 89 mg/dl (65-105) Patient hx anesthesia problems: none Family hx anesthesia problems: none Results Review: All pre-operative results and documents have been reviewed as part of the pre-operative evaluation. PMFSH Past Medical History Medical History History of diabetes mellitus History of hypertension Social History Social History Smoking packs per day: 1 Smoking cigarettes per day: 20.0 Years smoked: 60 Smoking pack-years: 60.00 Smoking status: Current every day smoker Tobacco type: cigarettes Second hand tobacco smoke exposure: Yes Additional smoking assessment comments: SMOKES 0.5 PPD FOR ABOUT 2 YEARS NOW Alcohol intake: never Substance use: never Substance use type: does not use Lack of Transportation: No Lack of Food: Never True Current Housing: I Have Housing Concerned About Future Housing: No Difficulty Paying Gas/Electric Bills: No Difficulty Paying for Meds: No Currently Unemployed: No Education: Grade School Difficulty w/ Childcare or Family Care: No Living arrangements: with family Occupation/Education: retired Gender identity (if verbalized by the patient): Male Spiritual care concerns: No Anes - Eval Final PreProcedure Day of Procedure 10/27/22 07:12 Patient weight: overweight Heart: regular rate and rhythm Lungs: clear to auscultation Airway: Mallampati scale class II Neurological: alert and oriented Last oral intake: >/= 8 hours ASA classification: III Emergent: no Anesthetic plan: proceed Anesthesia type and monitoring: general GIVS and standard monitoring Results Review: All pre-operative results and documents have been reviewed as part of the pre-operative evaluation. Informed Consent: The patient's anesthetic plan and its attendant risks and benefits were discussed with the patient/family/POA. Questions were solicited and answers provided to the satisfaction of the patient/family/POA.
[2022-10-27 07:25] VITALS: BP 122/53; PULSE 80; RESP 14; TEMP 36.4; O2SAT 98
[2022-10-27] MEDS: ceFAZolin 2 GM/D5W 50 ML 2 GM/50 ML BAG IVPB (07:29)
[2022-10-27] MEDS: BUPIVACAINE/EPINEPHRINE 0.5% 30 ML VIAL INFILTRATE (07:56)
[2022-10-27] MEDS: HEPARIN SODIUM 1,000 UNITS/ML VIAL 1000 UNITS IV PUSH (07:57)
[2022-10-27 08:45] VITALS: BP 101/68; PULSE 105; RESP 16; O2SAT 95
[2022-10-27 08:57] LABS: Glucose Point of Care 108 mg/dl (65-105)
--- NOTE | 2022-10-27 08:58 | W.PM.PROC2 ---
Procedure Note - Detailed Date of Procedure 10/27/22 Pre-op Diagnosis Metastatic lung cancer, inadequate venous access Post-op Diagnosis Same Procedure Performed Placement left internal jugular Port-A-Cath under fluoroscopy Surgeon Raul Black MD Warp Placer Elisabeth Tenorio PHOTOGRAPH PRINTER Anesthesia MAC and Local (0.5% Marcaine with epinephrine) Indications Patient is an 82-year-old man with severe COPD and insulin-dependent diabetes. He was found to have metastatic right upper lobe lung cancer. He is in need of chemotherapy. He is taken to surgery now for placement of a Port-A-Cath for administration of his chemotherapy. Findings I could not access the left subclavian vein despite several attempts. The left internal jugular vein was cannulated and we were able to place the catheter per this access. Description of Procedure Patient was taken to surgery and sedation was administered. The left neck and left upper chest were prepped and draped. The proposed incision was marked under the left clavicle. Local was infiltrated into the skin and the subcutaneous. Incision was made and deepened through the subcutaneous. Crossing veins were cauterized and divided. We applied more local in the and dissected down through the pectoralis major fascia. A subfascial pocket was then created. I infiltrated additional local under the left clavicle and in the area of the left subclavian vein. I then attempted to cannulate the left subclavian vein. Despite several careful attempts, I could not aspirate venous blood. I then infiltrated local over the area of the left internal jugular vein. I cannulated the left internal jugular vein but on the 1st cannulation the guidewire would not pass. I recannulated the vein and on this occasion the guidewire did pass into the superior vena cava. I documented the position of the guidewire under fluoroscopy. I then marked on the skin where 2 counter incisions would be made to tunneled the Port-A-Cath up to the exit point of the guidewire. Local was infiltrated over each of these counter incisions. Incisions were made and the exit point of the guidewire was the 3rd counter incision. I then tunneled the Port-A-Cath through each of the counter incisions and out through the guidewire site. I then used C-arm fluoroscopy and placed the Port-A-Cath in the pocket. I laid the Port-A-Cath tubing over the guidewire and estimated the length of tubing that would be needed. The tubing was then cut to the appropriate length. A dilator and sheath were then passed over the guidewire under fluoroscopy and passed into the superior vena cava. I removed the guidewire and introducer. The Port-A-Cath passed through the sheath and into the superior vena cava. The sheath was removed. The tip of the Port-A-Cath was barely in the superior vena cava but did appear to reach this point. The Port-A-Cath was then checked. It aspirated blood and flushed easily with heparin. I sutured the Port-A-Cath to the pectoralis major muscle with 3-0 silk suture. I recheck the Port-A-Cath again. It again aspirated blood and flushed easily with heparin. I then closed the Port-A-Cath pocket with layered closure of running 2-0 Vicryl. The counter incisions were closed with subcuticular 4-0 Vicryl interrupted suture. The Port-A-Cath incision was closed at the skin with a running 4-0 Monocryl skin suture. Wounds were dressed with Exofin surgical adhesive. The patient was awakened and taken to outpatient surgery in good condition. Sponge and needle counts were correct x2. Estimated Blood Loss -5 Drains No Packing No Pathology None sent Complications No immediate complications Condition Stable Disposition Same day [facility] Billing Surgery - Charge Forward: Surgery Billing (Placement Port-A-Cath under fluoroscopy)
[2022-10-27 09:15] VITALS: BP 114/79; PULSE 87; RESP 16; O2SAT 91
[2022-10-27 09:45] VITALS: BP 118/57; PULSE 87; RESP 16
== END 2022-10-27 10:00 | disposition home or self-care (01) ==
PROVIDERS: PCP Internal Medicine; Visit Provider Surgery
PROC: (CPT 36561; principal; 2022-10-27 07:30)
DX: C34.11 Malignant neoplasm of upper lobe, right bronchus or lung (principal); C79.9 Secondary malignant neoplasm of unspecified site; I10 Essential (primary) hypertension; E11.9 Type 2 diabetes mellitus without complications; F17.210 Nicotine dependence, cigarettes, uncomplicated; Z79.4 Long term (current) use of insulin; Z79.51 Long term (current) use of inhaled steroids; Z79.891 Long term (current) use of opiate analgesic; Z79.84 Long term (current) use of oral hypoglycemic drugs
CPT/HCPCS: 36561; 77001; 82948; C1788; J0690; J1100; J1644; J1885; J2405; J2704; J3010; J7030; J7120

== ENCOUNTER 2023-01-20 07:51 | Outpatient (RCR) | payer MEDICARE, SELFPAY ==
[2022-12-23] VITALS (11 sets, daily range): BP systolic 95–130; BP diastolic 60–74; PULSE 80–96; RESP 14–22; TEMP 36.3–37; O2SAT 14–96
[2022-12-23] MEDS: ACETAMINOPHEN 325 MG TABLET 650 MG PO (08:06)
[2022-12-23] MEDS: diphenhydrAMINE HCl CAP 25 MG CAPSULE PO (08:07)
[2022-12-23] MEDS: SODIUM CHLORIDE 0.9% IV 250 ML 30 ML IV CONT (08:07)
[2022-12-23] MEDS: FUROSEMIDE INJ 40 MG/4 ML VIAL 20 MG IV PUSH (10:40)
[2023-01-20] VITALS (11 sets, daily range): BP systolic 119–134; BP diastolic 67–77; PULSE 82–90; RESP 16–18; TEMP 36.6–37; O2SAT 94–98
[2023-01-20] MEDS: ACETAMINOPHEN 325 MG TABLET 650 MG PO (08:12)
[2023-01-20] MEDS: diphenhydrAMINE HCl CAP 25 MG CAPSULE PO (08:14)
[2023-01-20] MEDS: SODIUM CHLORIDE 0.9% IV 250 ML 30 ML IV CONT (08:20)
--- NOTE | 2023-01-20 08:20 | PC.NURSE ---
pt came in shakey, feeling as if his blood sugar was low. RN spot checked blood glucose, resulted at 58. 8 oz of OJ given, and breakfast eaten. Will spot check again in an hour.
[2023-01-20 08:36] LABS: Glucose Point of Care 58 mg/dl (65-105)
[2023-01-20] MEDS: FUROSEMIDE INJ 40 MG/4 ML VIAL 20 MG IV PUSH (11:26)
[2023-01-20 11:34] LABS: Glucose Point of Care 70 mg/dl (65-105)
[2023-01-20] MEDS: HEPARIN SODIUM LOCK FLUSH 500 UNITS/5 ML VIAL (14:50)
--- NOTE | 2023-01-20 15:05 | PC.NURSE ---
2unit PRBC transfusion completed @1445. Port flushed with hep-lock and de-accessed. Discharge instructions talked over with patient. Verbalization of understanding. VSS. Pt left via personal vehicle.
== END 2023-02-20 16:36 | disposition home or self-care (01) ==
LOC: ANHCPCTRAN 07:51
PROVIDERS: PCP Internal Medicine; Visit Provider Internal Medicine Hematology & Oncology
DX: C34.90 Malignant neoplasm of unspecified part of unspecified bronchus or lung (principal)
CPT/HCPCS: 36415; 36430; 82948; 86850; 86900; 86901; 86920; 86923; 96374; A9270; J1642; J1940; J7050; P9016

== ENCOUNTER 2023-01-31 10:53 | Outpatient (CLI) | payer MEDICARE, SELFPAY ==
[2023-01-31 12:31] LABS: Cholesterol 122 mg/dL (0-200); HDL Direct 34 mg/dL; Triglycerides 151 mg/dL (<150)
[2023-01-31 12:42] LABS: LDL Cholesterol Direct 55 mg/dL
[2023-01-31 12:44] LABS: Hemoglobin A1C 6.2 % (<5.7)
== END 2023-01-31 10:54 | disposition home or self-care (01) ==
PROVIDERS: PCP Internal Medicine; Visit Provider Internal Medicine Hematology & Oncology
DX: E78.00 Pure hypercholesterolemia, unspecified (principal); E11.9 Type 2 diabetes mellitus without complications
CPT/HCPCS: 36415; 80061; 83036

== ENCOUNTER 2023-02-21 07:49 | Outpatient (RCR) | payer MEDICARE, SELFPAY ==
[2023-02-21] VITALS (10 sets, daily range): BP systolic 104–125; BP diastolic 56–70; PULSE 88–97; RESP 16–20; TEMP 36.3–36.9; O2SAT 93–96
[2023-02-21] MEDS: ACETAMINOPHEN 325 MG TABLET 650 MG PO (08:45)
[2023-02-21] MEDS: diphenhydrAMINE HCl CAP 25 MG CAPSULE PO (08:45)
[2023-02-21] MEDS: SODIUM CHLORIDE 0.9% IV 250 ML 30 ML IV CONT (09:20)
[2023-02-21] MEDS: FUROSEMIDE INJ 40 MG/4 ML VIAL 20 MG IV PUSH (12:22)
[2023-02-21] MEDS: HEPARIN SODIUM LOCK FLUSH 500 UNITS/5 ML VIAL (15:30)
== END 2023-05-22 23:59 | disposition home or self-care (01) ==
LOC: ANHCPCTRAN 07:49
PROVIDERS: PCP Internal Medicine; Visit Provider Internal Medicine Hematology & Oncology
DX: C34.90 Malignant neoplasm of unspecified part of unspecified bronchus or lung (principal)
CPT/HCPCS: 36415; 36430; 86850; 86900; 86901; 86923; 96374; A9270; J1642; J1940; J7050; P9016

== ENCOUNTER 2023-02-28 07:24 | Outpatient (CLI) | payer MEDICARE, SELFPAY ==
--- NOTE | ~2023-02-28 | CT_ITS ---
EXAMINATION: CT chest abdomen pelvis w con DATE: 02/28/2023 09:19 PRIMARY CARE NURSE PRACTITIONER INDICATION: Non-small cell lung cancer TECHNIQUE: Computed tomography (CT) of the chest, abdomen, and pelvis was performed with 100 cc Omnip aque 350 intravenous contrast. The dose-length product was 1364.13 mGy-cm. Automated exposure control and iterative reconstruction technique were employed. COMPARISON: CT dated 09/06/2022 and PET/CT dated 09/15/2022 FINDINGS: CHEST CT: There is a 1.3 cm right upper lobe irregular shaped nodule, without significant change from prior ron dy allowing for differences of technique. There is a second irregular shaped soft tissue nodule in th e right upper lobe measuring approximately 1.2 cm nodule. There is emphysema. Significantly decreased size of mediastinal lymph nodes, likely response to therapy. Small pleural effusions. Small pericard ial effusion. There are stable small right middle lobe nodules, largest measuring approximately 6 mm. There is atherosclerosis of the aorta and coronary arteries. ABDOMEN/PELVIS CT: Moderate atherosclerosis of the aorta. No aneurysm. Status post cholecystectomy. The liver, spleen, p ancreas, adrenal glands are unremarkable. There is bilateral lateral renal cortical thinning. No lymp hadenopathy. Nonobstructive bowel pattern. Normal appendix. No free air or free fluid. No acute bone or joint abnormality. No focal lytic or blastic lesions. IMPRESSION: 1. Decreased size of mediastinal lymph nodes. For instance paratracheal lymph node measures 4 mm shor t axis compared with 1.3 cm on 09/06/2022. No current lymphadenopathy. Findings compatible with inter magdy response to therapy. 2: Stable right lung nodules, consistent with known malignancy. 3: Small pleural and pericardial effusions. Reviewed, dictated and finalized at location L. ARY CARE NURSE PRACTITIONER IMPRESSION: 1. Decreased size of mediastinal lymph nodes. For instance paratracheal lymph n ode measures 4 mm short axis compared with 1.3 cm on 09/06/2022. No current lym phadenopathy. Findings compatible with interval response to therapy. 2: Stable right lung nodules, consistent with known malignancy. 3: Small pleural and pericardial effusions.
== END 2023-02-28 07:25 | disposition home or self-care (01) ==
PROVIDERS: PCP Internal Medicine; Visit Provider Internal Medicine Hematology & Oncology
DX: C34.90 Malignant neoplasm of unspecified part of unspecified bronchus or lung (principal); I31.39 Other pericardial effusion (noninflammatory); J90 Pleural effusion, not elsewhere classified; R91.8 Other nonspecific abnormal finding of lung field
CPT/HCPCS: 71260; 74177; Q9967

== ENCOUNTER 2023-03-24 13:03 | Outpatient (CLI) | payer MEDICARE, SELFPAY ==
[2023-03-24 13:18] LABS: Basophils Absolute Auto 0.1 K/mm3 (0.0-0.1); Basophils Percent Auto 0.8 % (0.2-1.2); Eosinophils Absolute Auto 0.3 K/mm3 (0-0.3); Eosinophils Percent Auto 4.7 % (0-4.4); Hematocrit 28.9 % (42.0-52.0); Hemoglobin 9.2 g/dL (14.0-18.0); Immature Granulocyte Absolute 0.03 K/mm3 (0.00-0.031); Immature Granulocyte Percent A 0.5 % (0-0.5); Lymphocytes Absolute Auto 0.59 K/mm3 (0.9-3.2); Mean Corpuscular HGB Conc 31.8 g/dl (32-36); Mean Corpuscular Hemoglobin 31.5 pg (26-34); Mean Platelet Volume 9.6 fl (7.4-10.4); Monocytes Absolute Auto 0.6 K/mm3 (0.1-0.6); Monocytes Percent Auto 9.8 % (2.6-8.5); Neutrophils Absolute Auto 4.4 K/mm3 (1.3-6.7); Neutrophils Percent Auto 74.2 % (45.5-73.1); Platelet Count Result 96 k/mm3 (150-375); Red Blood Count 2.92 M/mm3 (4.6-6.20); Red Cell Distribution Width 19.9 % (11.5-14.5); White Blood Count 5.9 K/mm3 (4.5-10.0)
[2023-03-24 15:18] LABS: Anion Gap 8 mmol/L (8-16); Blood Urea Nitrogen 20 mg/dL (9-20); Calcium 9.2 mg/dL (8.4-10.2); Carbon Dioxide 27 mmol/L (22-30); Chloride 105 mmol/L (98-107); Estimated Glomerular Filt Rate 53; Glucose 186 mg/dL (65-110); Potassium 4.4 mmol/L (3.4-5.0); Sodium 140 mmol/L (137-145)
[2023-03-24 15:47] LABS: Hepatitis B Surface Antigen Negative (Negative)
[2023-03-28 11:53] LABS: NIL 0.14 IU/mL; Quantiferon TB Plus, 1T NEGATIVE (NEGATIVE); TB2-NIL <0.00 IU/mL
== END 2023-03-24 13:04 | disposition home or self-care (01) ==
LOC: ANHLAB 13:05
PROVIDERS: PCP Internal Medicine; Visit Provider Internal Medicine Hematology & Oncology
DX: C34.90 Malignant neoplasm of unspecified part of unspecified bronchus or lung (principal)
CPT/HCPCS: 36415; 80048; 85025; 86480; 87340

== ENCOUNTER 2023-04-17 10:29 | Inpatient (IN) | payer MEDICARE, SELFPAY ==
[2023-04-17] VITALS (15 sets, daily range): BP systolic 115–140; BP diastolic 63–73; PULSE 60–118; RESP 15–22; TEMP 36.5–37.2; O2SAT 86–97; BMI 28.4
--- NOTE | ~2023-04-17 | XR_ITS ---
EXAMINATION: XR chest 2V DATE: 04/17/2023 13:37 INDICATION: Shortness of breath. Cough. TECHNIQUE: Frontal and lateral views of the chest were obtained. COMPARISON: Chest single view 10/27/2022, chest CT 02/28/2023 FINDINGS: There are small pleural effusions. There are lucencies in the lungs, consistent with emphys saeed. There are airspace and interstitial opacities in right upper lobe. There are airspace opacities at the lung bases. No pneumothorax. The heart size is normal. There is a left internal jugular port w ith tip at superior cavoatrial junction. IMPRESSION: 1. Airspace and interstitial opacities in right lung upper lobe, consistent with radiation pneumoniti s. 2. Small pleural effusions. 3. Airspace opacities at the lung bases, consistent with atelectasis versus pneumonia. 4. Emphysema. Reviewed, dictated and finalized at location A. R MILL SUPERVISOR IMPRESSION: 1. Airspace and interstitial opacities in right lung upper lobe, consistent wit h radiation pneumonitis. 2. Small pleural effusions. 3. Airspace opacities at the lung bases, consistent with atelectasis versus pne umonia. 4. Emphysema.
--- NOTE | ~2023-04-17 | XR_ITS ---
EXAMINATION: XR chest 1V portable DATE: 04/21/2023 10:04 INDICATION: Cough and pleural effusion TECHNIQUE: frontal view of the chest was obtained. COMPARISON: Chest radiograph and CT dated 04/17/2023 FINDINGS: Unchanged mild reticular opacities in the right upper lung zone. Gradient of hazy airspace opacities in bilateral lower lung zones with more dense opacities and blunting at the costophrenic angle the le ft lung base consistent with persistent small bilateral pleural effusions, left greater than right an d associated atelectasis and/or pneumonia. Small calcified nodule at the lateral right lower lung zon e consistent with old granulomatous disease. No pneumothorax.. The cardiomediastinal silhouette is no rmal. Left internal jugular central venous port catheter with distal tip at the superior cavoatrial j unction. IMPRESSION: 1. Persistent small bilateral pleural effusions with associated bibasilar atelectasis and/or pneumoni a. 2. Unchanged reticular opacities at the right upper lung zone corresponds to atelectasis/scarring ass ociated with an indeterminate pulmonary nodule which is better appreciated on the prior CT. Reviewed, dictated and finalized at location A. EYOR MINE IMPRESSION: 1. Persistent small bilateral pleural effusions with associated bibasilar atele ctasis and/or pneumonia. 2. Unchanged reticular opacities at the right upper lung zone corresponds to at electasis/scarring associated with an indeterminate pulmonary nodule which is b kevin appreciated on the prior CT.
--- NOTE | ~2023-04-17 | CT_ITS ---
EXAMINATION: CTA chest PE protocol DATE: 04/17/2023 15:47 INDICATION: Shortness of breath. Left chest pain. TECHNIQUE: Computed tomography angiography (CTA) of the chest was performed with 100 mL Omnipaque-350 intravenous contrast timed to evaluate the pulmonary arteries. Coronal maximum intensity projection 3D-reconstructions were created by the technologist. Automated exposure control and iterative reconst ruction technique were employed. The dose-length product was 735.45 mGy-cm. COMPARISON: Chest CT 02/28/2023 FINDINGS: There is moderate emphysema. Calcified pulmonary nodules and calcified hilar and mediastina l lymph nodes are consistent with old granulomatous disease. There is dependent atelectasis bilateral ly. There is a 20 mm nodule in right upper lobe without change. There is mild scarring in right upper lobe. There is a 5 mm nodule in right middle lobe without change. There is a 5 mm nodule in right lo wer lobe without change. The heart size is normal. There is a trace pericardial effusion. There are c oronary artery calcifications. There is no pulmonary embolus. There are changes of cholecystectomy. C alcifications in the spleen are consistent with old granulomatous disease. There is an 11 mm cyst in left kidney. There are bridging endplate osteophytes at multiple levels in the spine, consistent with diffuse idiopathic skeletal hyperostosis (DISH). There are old healed left rib fractures. IMPRESSION: 1. No pulmonary embolus. 2. Stable right upper lobe pulmonary nodule, consistent with primary bronchogenic carcinoma. Stable s mall pulmonary nodules, consistent with metastatic disease versus granulomatous disease. 3. Moderate emphysema. 4. Small pleural effusions. Reviewed, dictated and finalized at location A. RIFUGE SEPARATOR TENDER IMPRESSION: 1. No pulmonary embolus. 2. Stable right upper lobe pulmonary nodule, consistent with primary bronchogen ic carcinoma. Stable small pulmonary nodules, consistent with metastatic diseas e versus granulomatous disease. 3. Moderate emphysema. 4. Small pleural effusions.
--- NOTE | 2023-04-17 12:46 | ECG_ITS ---
Measurements Intervals [place] Rate: 96 P: 78 DE: 190 QRS: 10 QRSD: 100 T: 43 QT: 372 QTc: 472 Interpretive Statements SINUS RHYTHM INCOMPLETE RIGHT BUNDLE BRANCH BLOCK LOW VOLTAGE QRS BORDERLINE ECG COMPARED TO ECG 09/05/2022 21:26:27 NO SIGNIFICANT DIFFERENCE Electronically Signed On 04-17-2023 15:11:19 COLLEGE DIRECTOR by Patel Long M.D.
[2023-04-17 13:41] LABS: Basophils Percent Auto 0.4 % (0.2-1.2); Eosinophils Absolute Auto 0.1 K/mm3 (0-0.3); Eosinophils Percent Auto 1.5 % (0-4.4); Hematocrit 27.5 % (42.0-52.0); Hemoglobin 7.8 g/dL (14.0-18.0); Immature Granulocyte Absolute 0.03 K/mm3 (0.00-0.031); Immature Granulocyte Percent A 0.7 % (0-0.5); Immature Platelet Fraction Pct 3.3 % (0.9-11.2); Lymphocytes Absolute Auto 0.59 K/mm3 (0.9-3.2); Mean Corpuscular HGB Conc 28.4 g/dl (32-36); Mean Corpuscular Volume 105.8 fl (80-100); Mean Platelet Volume 10.6 fl (7.4-10.4); Monocytes Absolute Auto 0.5 K/mm3 (0.1-0.6); Monocytes Percent Auto 10.5 % (2.6-8.5); Neutrophils Absolute Auto 3.4 K/mm3 (1.3-6.7); Neutrophils Percent Auto 73.9 % (45.5-73.1); Nucleated Red Blood Cells Perc 0.4 % (0.0-0.2); Platelet Count Result 73 k/mm3 (150-375); Red Cell Distribution Width 19.9 % (11.5-14.5); White Blood Count 4.6 K/mm3 (4.5-10.0)
[2023-04-17] MEDS: IPRATROPIUM 0.5 MG/ALBUTEROL SULFATE 2.5 MG AMPUL.NEB 3 ML INHALATION ×2 (14:06→21:22)
[2023-04-17 14:19] LABS: Alanine Aminotransferase 20 U/L (6-50); Albumin Level 3.3 g/dL (3.5-5.1); Alkaline Phosphatase 86 U/L (38-126); Anion Gap 5 mmol/L (8-16); Aspartate Amino Transferase 33 U/L (17-59); Bilirubin,Total 0.3 mg/dL (0.2-1.3); Blood Urea Nitrogen 25 mg/dL (9-20); Calcium 8.6 mg/dL (8.4-10.2); Carbon Dioxide 26 mmol/L (22-30); Chloride 108 mmol/L (98-107); Estimated CRCL calculation 39 ml/min; Estimated Glomerular Filt Rate 53; Glucose 101 mg/dL (65-110); Sodium 139 mmol/L (137-145)
[2023-04-17 14:28] LABS: Influenza A QL RT-PCR Negative (Negative); Influenza B QL RT-PCR Negative (Negative); RSV RNA, RT-PCR Negative (Negative); SARS-CoV-2 RNA PCR Negative (Negative)
[2023-04-17] MEDS: AZITHROMYCIN 500 MG/NS 250 ML 500 MG/250 ML BAG 250 MG IVPB (14:30)
--- NOTE | 2023-04-17 15:15 | ED.GENADULT ---
HPI - General Adult General Chief complaint: Shortness of Breath/Dyspnea Stated complaint: SOB x 1 week Time Seen by Provider: 04/17/23 13:00 History of Present Illness HPI narrative: Patient is an 83-year-old male who presents ER with shortness of breath and cough. Ongoing over the last week. He feels like cough really started after he had his last dose of immunotherapy for cancer. He has finished all chemotherapy and radiation. Is found to be hypoxic at 86% on room air. He is now on 3 L nasal cannula. No chest pain or chest pressure but does have some pain on her left side when he takes a deep breath. Denies hemoptysis. No lower extremity swelling. No history DVT/PE. Related Data Home Medications Medication Instructions Recorded Confirmed citalopram 20 mg tablet 20 mg PO DAILY 09/06/22 04/17/23 glimepiride 4 mg tablet 4 mg PO BID 09/06/22 04/17/23 lisinopril 20 mg tablet 20 mg PO DAILY 09/06/22 04/17/23 lorazepam 0.5 mg tablet 0.5 mg PO TID 09/06/22 04/17/23 metformin 1,000 mg tablet 1,000 mg PO BID 09/06/22 04/17/23 rosuvastatin 20 mg tablet 20 mg PO DAILY 09/06/22 04/17/23 insulin degludec 100 unit/mL (3 15 unit subcut HS 10/24/22 04/17/23 mL) subcutaneous pen (Tresiba FlexTouch U-100 insulin) ferrous sulfate 325 mg (65 mg 325 mg PO DAILY 04/17/23 04/17/23 iron) tablet mecobalamin (vitamin B12) 1,000 1,000 mcg PO DAILY 04/17/23 04/17/23 mcg chewable tablet (B12 Active) Allergies Allergy/AdvReac Type Severity Reaction Status Date / Time codeine Allergy heartache Verified 04/17/23 18:16 niacin AdvReac Flushing Verified 04/17/23 18:16 PMFSH Past Medical History Medical History (Updated 04/17/23 @ 19:47 by Almaz Vick PA-C) Chronic anemia Hyperlipidemia Hypertension Non-small cell lung cancer (09/2022) Arising in the right lung status post chemo radiation, currently on immunotherapy. Obstructive sleep apnea Thrombocytopenia Tobacco abuse Type 2 diabetes mellitus Family History Family History (Updated 04/17/23 @ 17:49 by Balaji Schulz RN) Other Unknown family medical history Social History Social History Smoking packs per day: 1.5 Smoking cigarettes per day: 30.0 Smoking status: Current every day smoker Tobacco type: cigarettes Second hand tobacco smoke exposure: Yes Alcohol intake: never Substance use: never Substance use type: does not use Do You Feel Safe in your Home?: Yes Lack of Transportation: No Lack of Food: Never True Current Housing: I Have Housing Concerned About Future Housing: No Difficulty Paying Gas/Electric Bills: No Difficulty Paying for Meds: No Currently Unemployed: No Education: Don't Know Difficulty w/ Childcare or Family Care: No Living arrangements: with family Occupation/Education: retired Gender identity (if verbalized by the patient): Male Spiritual care concerns: No Exam Narrative: GENERAL: Well-appearing, well-nourished, and in no acute distress. HEAD: Normocephalic, atraumatic. ENT: Mucous membranes moist. NECK: Supple. CHEST: Coarse rales bilaterally. No respiratory distress. HEART: Tachycardic and regular. Normal peripheral pulses. ABDOMEN: Soft, nontender, nondistended. EXTREMITIES: Normal range of motion. No edema. SKIN: Warm, dry, no rash. NEURO: Alert and oriented x3. PSYCH: Normal mood and affect. Course Course Emergency Course: Patient resting comfortably. Still has frequent cough. He is requiring oxygen which is new for him. He has been started on IV antibiotics for pneumonia and will be admitted to the hospitalist service. Vital Signs Vital signs: Vital Signs Temperature 97.9 F 04/17/23 10:34 Pulse Rate 111 H 04/17/23 10:34 Respiratory Rate 16 04/17/23 10:34 Blood Pressure 115/63 04/17/23 10:34 Pulse Oximetry 97 04/17/23 10:34 Oxygen Delivery Room Air 04/17/23 10:34 Temperat
[2023-04-17 15:31] LABS: Anisocytosis 3+ (NORMAL); Macrocytosis 1+ (NORMAL); Platelet Estimate Decreased (Adequate); Schistocytes None Seen (NORMAL)
[2023-04-17 15:32] LABS: Hypochromasia 1+ (NORMAL)
--- NOTE | 2023-04-17 17:15 | PC.NURSE ---
This patient, Michele Watson, was admitted to [facility] Surg Room 331-02. Patient/family oriented to hospital policies and general routines including ID bracelet, bed and alarms, visiting hours, pain management, procedures, bathroom and other care routines, personal items, smoking policy, room service/diet, and visiting hours. Information on how to activate the Rapid Response Team has been discussed. Patient/Family are encouraged to report perceived risks to care and to ask questions if they do not understand what they are told or what they should do.
--- NOTE | 2023-04-17 19:35 | PM.IMHP ---
H&P: HPI History of Present Illness Date/Time: 04/17/23 19:35 Chief Complaint: Shortness of breath. Narrative: This is an 83-year-old male smoker with history of clinical stage III non-small cell lung adenocarcinoma arising from the right lung diagnosed in September 2022 status post chemoradiation therapy completed in December 2022 and currently on immunotherapy, chronic obstructive pulmonary disease, insulin-dependent diabetes, hypertension, and hyperlipidemia who presented to the emergency department for evaluation of shortness of breath. The patient provides the following history. His last immunotherapy treatment was about a week ago and a few days thereafter he developed a cough productive of thick white phlegm, shortness of breath, and left-sided pleuritic pain. He came in today for increasing shortness of breath and his SpO2 was found to be 86% on room air. He was afebrile on arrival. He has been intermittently tachycardic. Labs were significant for stable anemia and thrombocytopenia. He tested negative for influenza, RSV, and COVID. Chest CTA showed no pulmonary embolus, moderate emphysema, small effusions, and stable right upper lobe pulmonary nodule. He was given a DuoNeb treatment and was started on azithromycin and ceftriaxone he is being admitted in this setting for further treatment. At the time my evaluation he is feeling better after receiving breathing treatments. He denies fever, headache, sinus congestion, sore throat, exertional chest pain, nausea, vomiting, and diarrhea. Review of Systems Review of Systems: Twelve systems were reviewed and are negative except for as per HPI. [facility] Past Medical History Medical History (Updated 04/17/23 @ 19:48 by Almaz Vick PA-C) Chronic anemia Colon cancer (2014) Hyperlipidemia Hypertension Non-small cell lung cancer (09/2022) Arising in the right lung status post chemo radiation, currently on immunotherapy. Obstructive sleep apnea Thrombocytopenia Tobacco abuse Type 2 diabetes mellitus Surgical History Surgical History (Updated 04/17/23 @ 19:48 by Almaz Vick PA-C) History of bilateral cataract extraction History of cholecystectomy (2002) History of colon resection (2014) For colon cancer. History of skin graft Family History Family History Other Unknown family medical history Social History Social History (Updated 04/17/23 @ 19:49 by Almaz Vick PA-C) Social History: Surrogate medical decision maker: Mallorie Watson, spouse. Code status: Full code. Smoking packs per day: 1.5 Smoking cigarettes per day: 30.0 Smoking status: Current every day smoker Tobacco type: cigarettes Second hand tobacco smoke exposure: Yes Alcohol intake: never Substance use: never Substance use type: does not use Do You Feel Safe in your Home?: Yes Lack of Transportation: No Lack of Food: Never True Current Housing: I Have Housing Concerned About Future Housing: No Difficulty Paying Gas/Electric Bills: No Difficulty Paying for Meds: No Currently Unemployed: No Education: Don't Know Difficulty w/ Childcare or Family Care: No Living arrangements: with family Occupation/Education: retired Spiritual care concerns: No Meds Home Medications and Allergies Home Medications Medication Instructions Recorded Confirmed Type citalopram 20 mg tablet 20 mg PO DAILY 09/06/22 04/17/23 History glimepiride 4 mg tablet 4 mg PO BID 09/06/22 04/17/23 History lisinopril 20 mg tablet 20 mg PO DAILY 09/06/22 04/17/23 History lorazepam 0.5 mg tablet 0.5 mg PO TID 09/06/22 04/17/23 History metformin 1,000 mg tablet 1,000 mg PO BID 09/06/22 04/17/23 History rosuvastatin 20 mg tablet 20 mg PO DAILY 09/06/22 04/17/23 History fluticasone fur. 100 mcg-umeclid 1 inh inhalation DAILYRT #60 ea 09/07/22 04/17/23 Rx 62.5 mcg-vilant 25 mcg inhalat.powder (Trelegy Ellipta) insulin d
[2023-04-17] MEDS: LORazepam (*CRX) 0.5 MG TABLET PO (20:57)
[2023-04-17] MEDS: INSULIN GLARGINE (*BKC) 100 UNITS/ML 15 UNITS SUB-Q (20:58)
[2023-04-17 21:22] LABS: Glucose Point of Care 142 mg/dl (65-105)
[2023-04-18] VITALS (15 sets, daily range): BP systolic 103–125; BP diastolic 56–79; PULSE 82–99; RESP 18–22; TEMP 36.1–37; O2SAT 90–98
[2023-04-18] MEDS: IPRATROPIUM 0.5 MG/ALBUTEROL SULFATE 2.5 MG AMPUL.NEB 3 ML INHALATION ×3 (03:09→14:30)
[2023-04-18] MEDS: ACETAMINOPHEN 325 MG TABLET 650 MG PO ×2 (06:04→21:47)
[2023-04-18 07:29] LABS: Immature Platelet Fraction Pct 3.9 % (0.9-11.2); Mean Corpuscular HGB Conc 28.8 g/dl (32-36); Mean Corpuscular Hemoglobin 30.5 pg (26-34); Mean Corpuscular Volume 106.2 fl (80-100); Mean Platelet Volume 10.4 fl (7.4-10.4); Platelet Count Result 62 k/mm3 (150-375); Red Blood Count 2.26 M/mm3 (4.6-6.20); Red Cell Distribution Width 19.8 % (11.5-14.5); White Blood Count 3.6 K/mm3 (4.5-10.0)
[2023-04-18 07:42] LABS: Hemoglobin 6.9 g/dL (14.0-18.0)
[2023-04-18 07:46] LABS: Anion Gap 7 mmol/L (8-16); Blood Urea Nitrogen 20 mg/dL (9-20); Calcium 8.6 mg/dL (8.4-10.2); Carbon Dioxide 26 mmol/L (22-30); Chloride 108 mmol/L (98-107); Estimated CRCL calculation 42 ml/min; Estimated Glomerular Filt Rate 58; Glucose 170 mg/dL (65-110); Sodium 141 mmol/L (137-145)
[2023-04-18] MEDS: lisinopriL 20 MG TABLET PO (09:16)
[2023-04-18] MEDS: ROSUVASTATIN 10 MG TABLET 20 MG PO (09:16)
[2023-04-18] MEDS: CYANOCOBALAMIN 1,000 MCG TABLET 1000 MCG PO (09:16)
[2023-04-18] MEDS: LORazepam (*CRX) 0.5 MG TABLET PO ×3 (09:16→20:08)
[2023-04-18] MEDS: CITALOPRAM HYDROBROMIDE 20 MG TABLET PO (09:16)
[2023-04-18] MEDS: FERROUS SULFATE 325 MG TABLET DR PO (09:16)
[2023-04-18] MEDS: FLUTICASONE/UMECLIDIN/VILANTER 100-62.5-25 MCG ELLIPTA 1 PUFF INHALATION (09:47)
[2023-04-18] MEDS: SODIUM CHLORIDE 0.9% IV 250 ML 30 ML IV CONT (10:25)
[2023-04-18 11:45] LABS: Glucose Point of Care 234 mg/dl (65-105)
[2023-04-18] MEDS: INSULIN ASPART (*BKC) 100 UNITS/ML SUB-Q (11:46)
[2023-04-18] MEDS: AZITHROMYCIN 500 MG/NS 250 ML 500 MG/250 ML BAG 250 MG IVPB (14:45)
--- NOTE | 2023-04-18 16:02 | PM.IMPN ---
Progress Note: A&P Assessment and Plan (1) Acute respiratory failure with hypoxia: Code(s): J96.01 - Acute respiratory failure with hypoxia Status: Acute (2) COPD exacerbation: Code(s): J44.1 - Chronic obstructive pulmonary disease with (acute) exacerbation Status: Acute (3) Pleuritic pain: Code(s): R07.81 - Pleurodynia Status: Acute (4) Chronic anemia: Code(s): D64.9 - Anemia, unspecified Status: Acute (5) Thrombocytopenia: Code(s): D69.6 - Thrombocytopenia, unspecified Status: Acute (6) Type 2 diabetes mellitus: Code(s): E11.9 - Type 2 diabetes mellitus without complications Status: Acute (7) Non-small cell lung cancer: Onset Date: 09/2022 Code(s): C34.90 - Malignant neoplasm of unspecified part of unspecified bronchus or lung Status: Acute (8) Hypertension: Code(s): I10 - Essential (primary) hypertension Status: Acute (9) Hyperlipidemia: Code(s): E78.5 - Hyperlipidemia, unspecified Status: Acute (10) Obstructive sleep apnea: Code(s): G47.33 - Obstructive sleep apnea (adult) (pediatric) Status: Acute (11) Tobacco abuse: Code(s): Z72.0 - Tobacco use Status: Acute Plan The patient presented to the emergency department via private vehicle from home for evaluation of shortness of breath. He has known history of stage III non-small cell lung adenocarcinoma diagnosed September 2022 status post chemoradiation therapy completed in December 2022 currently on immunotherapy the 1st dose of which he received about a week ago following which he developed cough productive of thick white phlegm shortness of breath and left-sided pleuritic pain. He had worsening shortness of breath and hence presented to the ER. On ER evaluation he was hypoxic on arrival with oxygen saturation down to 86% on room air. He was placed on 2 L nasal cannula to maintain his SpO2 in the mid 90s. Chest x-ray with airspace and interstitial opacities right lung upper lobe consistent with radiation pneumonitis small pleural effusion. Airspace opacity at the lung bases consistent with atelectasis versus pneumonia. With emphysema. Chest CTA was negative for pulmonary embolism but did show evidence of emphysema and a stable right lung mass. There were no findings of pneumonia or radiation pneumonitis. He was wheezing on evaluation is being treated as COPD exacerbation with pneumonia. Continue scheduled bronchodilators, antibiotics With IV ceftriaxone and azithromycin. He is not actively wheezing currently and and will avoid any steroid for now pleuritic pain is likely related to COPD and possible underlying pleurisy. Analgesics available as needed. He has a chronic anemia and thrombocytopenia which are stable and will be monitored. This anemia is worse today and will be transfused 1 unit of PRBC. With this likely is related to his recent immunotherapy/illness. No signs of active bleeding will continue to monitor H&H. ROBIN on CPAP. Smoking cessation is encouraged; he declines the need for nicotine patch. Hold metformin as he received IV contrast. Continue basal insulin. Initiate sliding scale insulin, Accu-Cheks, and hypoglycemic protocol. Subjective Date/time seen: 04/18/23 16:02 Interval history: Feeling better. No new complaint. No leg swelling. Has some cough. Not wheezing anymore. At bedside Review of Systems Review of Systems: All systems reviewed & are unremarkable except as noted in HPI and below Exam Narrative: General: Chronically ill-appearing male in no acute distress. HEENT: PERRL, EOMI. Sclera anicteric. Tacky mucous membranes. Neck: Supple. No JVD. Respiratory: Respirations are nonlabored and he is speaking in full sentences. Lung sounds are a bit diminished throughout no wheezing Cardiovascular: Regular rate and rhythm with S1-S2. Gastrointestinal: Abdomen is soft, protuberant, nontender, and non
[2023-04-18 16:30] LABS: Glucose Point of Care 116 mg/dl (65-105)
[2023-04-18] MEDS: INSULIN GLARGINE (*BKC) 100 UNITS/ML 15 UNITS SUB-Q (20:10)
[2023-04-18 21:02] LABS: Glucose Point of Care 199 mg/dl (65-105)
[2023-04-19] VITALS (11 sets, daily range): BP systolic 107–120; BP diastolic 58–78; PULSE 78–102; RESP 16–20; TEMP 36.6–37; O2SAT 90–95
--- NOTE | 2023-04-19 01:40 | PCRCNOTE ---
Window of time for administration has passed. See next scheduled administration.
[2023-04-19 06:38] LABS: Basophils Percent Auto 0.5 % (0.2-1.2); Eosinophils Absolute Auto 0.1 K/mm3 (0-0.3); Eosinophils Percent Auto 3.5 % (0-4.4); Hematocrit 26.9 % (42.0-52.0); Immature Granulocyte Absolute 0.02 K/mm3 (0.00-0.031); Immature Granulocyte Percent A 0.5 % (0-0.5); Immature Platelet Fraction Pct 3.9 % (0.9-11.2); Lymphocytes Absolute Auto 0.55 K/mm3 (0.9-3.2); Lymphocytes Percent Auto 14.7 % (18.3-44.2); Mean Corpuscular HGB Conc 29.7 g/dl (32-36); Mean Corpuscular Hemoglobin 30.3 pg (26-34); Mean Corpuscular Volume 101.9 fl (80-100); Mean Platelet Volume 10.9 fl (7.4-10.4); Monocytes Absolute Auto 0.4 K/mm3 (0.1-0.6); Monocytes Percent Auto 10.9 % (2.6-8.5); Neutrophils Absolute Auto 2.6 K/mm3 (1.3-6.7); Neutrophils Percent Auto 69.9 % (45.5-73.1); Platelet Count Result 63 k/mm3 (150-375); Red Blood Count 2.64 M/mm3 (4.6-6.20); Red Cell Distribution Width 20.6 % (11.5-14.5); White Blood Count 3.8 K/mm3 (4.5-10.0)
[2023-04-19 06:39] LABS: Alanine Aminotransferase 17 U/L (6-50); Albumin Level 3.2 g/dL (3.5-5.1); Alkaline Phosphatase 87 U/L (38-126); Anion Gap 5 mmol/L (8-16); Aspartate Amino Transferase 30 U/L (17-59); Bilirubin,Total 0.4 mg/dL (0.2-1.3); Blood Urea Nitrogen 17 mg/dL (9-20); Calcium 8.8 mg/dL (8.4-10.2); Carbon Dioxide 27 mmol/L (22-30); Chloride 107 mmol/L (98-107); Estimated CRCL calculation 45 ml/min; Estimated Glomerular Filt Rate > 60; Glucose 112 mg/dL (65-110); Potassium 4.2 mmol/L (3.4-5.0); Sodium 139 mmol/L (137-145)
[2023-04-19 07:32] LABS: Anisocytosis 2+ (NORMAL); Platelet Estimate Decreased (Adequate); Schistocytes None Seen (NORMAL)
[2023-04-19 07:50] LABS: Glucose Point of Care 120 mg/dl (65-105)
--- NOTE | 2023-04-19 08:20 | PM.IMPN ---
Progress Note: A&P Assessment and Plan (1) Non-small cell lung cancer: Onset Date: 09/2022 Code(s): C34.90 - Malignant neoplasm of unspecified part of unspecified bronchus or lung Status: Acute (2) Obstructive sleep apnea: Code(s): G47.33 - Obstructive sleep apnea (adult) (pediatric) Status: Acute (3) COPD (chronic obstructive pulmonary disease): Code(s): J44.9 - Chronic obstructive pulmonary disease, unspecified Status: Acute (4) Acute respiratory failure with hypoxia: Code(s): J96.01 - Acute respiratory failure with hypoxia Status: Acute (5) COPD exacerbation: Code(s): J44.1 - Chronic obstructive pulmonary disease with (acute) exacerbation Status: Acute (6) Pleuritic pain: Code(s): R07.81 - Pleurodynia Status: Acute (7) Chronic anemia: Code(s): D64.9 - Anemia, unspecified Status: Acute (8) Thrombocytopenia: Code(s): D69.6 - Thrombocytopenia, unspecified Status: Acute (9) Type 2 diabetes mellitus: Code(s): E11.9 - Type 2 diabetes mellitus without complications Status: Acute (10) Hypertension: Code(s): I10 - Essential (primary) hypertension Status: Acute (11) Hyperlipidemia: Code(s): E78.5 - Hyperlipidemia, unspecified Status: Acute (12) Tobacco abuse: Code(s): Z72.0 - Tobacco use Status: Acute Plan The patient presented to the emergency department via private vehicle from home for evaluation of shortness of breath. Lung cancer He has known history of stage III non-small cell lung adenocarcinoma diagnosed September 2022 status post chemoradiation therapy completed in December 2022 currently on immunotherapy the 1st dose of which he received about a week ago following which he developed cough productive of thick white phlegm shortness of breath and left-sided pleuritic pain. Follow-up we heme oncologist outpatient He had worsening shortness of breath and hence presented to the ER. On ER evaluation he was hypoxic on arrival with oxygen saturation down to 86% on room air. He was placed on 2 L nasal cannula to maintain his SpO2 in the mid 90s. Pneumonia, superimposed with pneumonitis and atelectasis Chest x-ray with airspace and interstitial opacities right lung upper lobe consistent with radiation pneumonitis small pleural effusion. Airspace opacity at the lung bases consistent with atelectasis versus pneumonia. With emphysema. Chest CTA was negative for pulmonary embolism but did show evidence of emphysema and a stable right lung mass. There were no findings of pneumonia or radiation pneumonitis. Patient is immunocompromised, will continue azithromycin and ceftriaxone IV Follow-up procalcitonin level Consult pulmonology for evaluation treatment COPD exacerbation He was wheezing on evaluation is being treated as COPD exacerbation with pneumonia. Continue scheduled bronchodilators, antibiotics With IV ceftriaxone and azithromycin. not actively wheezing currently and and will avoid any steroid for now pleuritic pain is likely related to COPD and possible underlying pleurisy. Analgesics available as needed. Consult acquisition professional for evaluation treatment Chronic anemia and thrombocytopenia He has a chronic anemia and thrombocytopenia which are stable and will be monitored. transfused 1 unit of PRBC. With this likely is related to his recent immunotherapy/illness. No signs of active bleeding will continue to monitor H&H. Follow-up stool guaiac, iron panel, ferritin, reticulocyte CHF Discussing the case with acquisition professional, CT showed b/l pleural effusion Suspecting CHF Follow-up BMP, echocardiogram Provide lasix 40 mg IV push once ROBIN on CPAP. Smoking cessation is encouraged; he declines the need for nicotine patch. Type 2 diabetes hold metformin as he received IV contrast. Continue basal insulin. Initiate sliding scale insulin, Accu-Cheks, and hypoglyc
[2023-04-19] MEDS: IPRATROPIUM 0.5 MG/ALBUTEROL SULFATE 2.5 MG AMPUL.NEB 3 ML INHALATION ×3 (08:29→20:37)
[2023-04-19] MEDS: FLUTICASONE/UMECLIDIN/VILANTER 100-62.5-25 MCG ELLIPTA 1 PUFF INHALATION (08:29)
[2023-04-19] MEDS: FERROUS SULFATE 325 MG TABLET DR PO (08:53)
[2023-04-19] MEDS: CYANOCOBALAMIN 1,000 MCG TABLET 1000 MCG PO (08:53)
[2023-04-19] MEDS: lisinopriL 20 MG TABLET PO (08:54)
[2023-04-19] MEDS: CITALOPRAM HYDROBROMIDE 20 MG TABLET PO (08:54)
[2023-04-19] MEDS: LORazepam (*CRX) 0.5 MG TABLET PO ×3 (08:54→16:39)
[2023-04-19] MEDS: ROSUVASTATIN 10 MG TABLET 20 MG PO (08:54)
[2023-04-19 09:51] LABS: Iron 53 ug/dL (49-181)
[2023-04-19 10:00] LABS: Percent Iron Saturation 20 % (20-50)
[2023-04-19 10:20] LABS: Procalcitonin 0.1 ng/mL
[2023-04-19 11:36] LABS: Glucose Point of Care 231 mg/dl (65-105)
[2023-04-19] MEDS: INSULIN ASPART (*BKC) 100 UNITS/ML SUB-Q (11:59)
[2023-04-19] MEDS: AZITHROMYCIN 500 MG/NS 250 ML 500 MG/250 ML BAG 250 MG IVPB (13:32)
--- NOTE | 2023-04-19 14:00 | ECHO_ITS ---
Patient Info Name: Michele Watson Age: 83 years : 1940 Gender: Male Ht: 68 in Wt: 181 lbs BSA: 2.00 m2 HR: 87 bpm BP: 120 / 78 mmHg Heart Rhythm: Tachycardia, Sinus Rhythm Technical Quality: Poor Exam Date: 04/19/2023 3:22 PM Exam Location: Echo Lab Patient Status: Inpatient Admit Date: 04/17/2023 Staff Ordering Physician: Jose Sanchez MD Case Management Manager: Enma Hough RDCS Attending Provider: Liliya Kraus MD Exam Type: CA echo limited w contrast Study Info Indications - DIZZINESS Limited two-dimensional transthoracic echocardiogram is performed with contrast. Contrast/Agitated Saline Contrast/Ag. Saline: Definity Amount: 3.00 ml Administered By: Enma Hough RDCS Existing IV Access: Yes IV Access Condition: patent with no signs of infiltration Summary 1. Technically difficult study with limited views. 2. Left ventricular chamber dimension is normal. 3. Left ventricular systolic function is normal, estimated at >70%. Left Ventricle Left ventricular chamber dimension is normal. Left ventricular systolic function is normal, estimated at >70%. Right Ventricle Right ventricular chamber dimension is not well visualized. Left Atria Left atrial chamber dimension is normal. Right Atria Right atrial chamber dimension is not well visualized. Aortic Valve The aortic valve is not well visualized. Pulmonic Valve The pulmonic valve is not well visualized. Mitral Valve The mitral valve has not well visualized. Tricuspid Valve The tricuspid valve leaflets are not well visualized. Pericardium/Pleural The pericardium appears epicardial fat pad. There is trivial pericardial effusion. Inferior Vena Cava Inferior vena cava is not well visualized. Aorta The aortic root size at the sinus of Valsalva is not well visualized. Left Ventricular Outflow Tract Name Value Normal LVOT 2D LVOT Diameter 2.0 cm Aortic Valve Name Value Normal AV Regurgitation 2D LVOT Area 3.1 cm2 Ventricles Name Value Normal LV Dimensions 2D/MM LVOT Diameter 2.0 cm LV Fractional Shortening/Ejection Fraction 2D/MM LV Diastolic Volume (4C MOD) 67 ml LV EF (4C MOD) 70 % LV Diastolic Volume (2C MOD) 50 ml LV EF (2C MOD) 63 % LV Diastolic Volume (BP MOD) 58 ml 62-150 LV Diastolic Volume Index (BP MOD) 29 ml/m2 34-74 LV Systolic Volume (BP MOD) 19 ml 21-61 LV Systolic Volume Index (BP MOD) 10 ml/m2 11-31 LV EF (
[2023-04-19] MEDS: FUROSEMIDE INJ 40 MG/4 ML VIAL IV PUSH (14:19)
--- NOTE | 2023-04-19 14:22 | PM.CNPUL ---
Assessment and Plan Assessment and plan (1) Non-small cell lung cancer: Onset Date: 09/2022 Code(s): C34.90 - Malignant neoplasm of unspecified part of unspecified bronchus or lung Status: Acute (2) Obstructive sleep apnea: Code(s): G47.33 - Obstructive sleep apnea (adult) (pediatric) Status: Acute Assessment and Plan: Patient has known history of sleep apnea has been on CPAP support 12 cm of water pressure. On last download report his compliance was excellent and the device AHI was low. Patient needs to bring home CPAP machine to use while in hospital. (3) Adenocarcinoma, lung: Code(s): C34.90 - Malignant neoplasm of unspecified part of unspecified bronchus or lung Status: Acute (4) Mediastinal lymphadenopathy: Code(s): R59.0 - Localized enlarged lymph nodes Status: Acute (5) COPD (chronic obstructive pulmonary disease): Code(s): J44.9 - Chronic obstructive pulmonary disease, unspecified Status: Acute Assessment and Plan: An 83-year-old male patient, with a medical history of moderate centrilobular emphysema, as indicated by radiographic studies, and metastatic lung adenocarcinoma, is currently under durvalumab immunotherapy following completion of chemoradiation. He has been experiencing symptoms such as shortness of breath, a mild cough, chest congestion, and left-sided pleuritic chest pain for the past week. Chronic, small, and symmetrical pleural effusions were first identified in his chest CT scan conducted in late February of the previous year. The patient also has thrombocytopenia, anemia, and is undergoing treatment for a lower respiratory tract infection. His respiratory condition appears to be improving, with no signs of wheezing observed during the physical examination. Given his medical history and the results of the diagnostic studies, it is highly probable that the patient's increased sputum, shortness of breath, and hypoxemia can be attributed to a lower respiratory tract infection. The longstanding pleural effusions could be associated with congestive heart failure or a history of radiation to the mediastinum. Bilateral pleural effusions are not usually related to metastatic disease. Results of the sputum culture are currently awaited. The plan moving forward is to maintain the existing antibiotic regimen to treat the potential lower respiratory tract infection. There are no signs of a COPD exacerbation, thus eliminating the necessity for IV steroids. A workup for bilateral pleural effusions, including an echocardiogram, is needed. Intravenous Lasix administration is agreed upon. I will continue to monitor and follow up with the patient's progress. (6) Acute respiratory failure with hypoxia: Code(s): J96.01 - Acute respiratory failure with hypoxia Status: Acute History of Present Illness History of Present Illness Consult date: 04/19/23 Chief complaint: Pneumonia/Hypoxia Narrative: This 83-year-old man with a known history of a non small cell lung cancer presented with one-week history of shortness of breath left pleuritic chest pain and hypoxemia. 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 His lung cancer following EBUS procedure was staged as clinical stage III (T1bN2/3 M0) and the patient has completed chemoradiation. His radiation began in early November and finished mid December. He had radiation to his right upper lung and mediastinum and hilum. He also finished chemotherapy with Alimta and carboplatin. Patient was supposed to continue continue with immunotherapy, probably Durvalumab for one year. patient stated that for the last week he had had some shortness of breath also mild coughing with some sputum production. This is all started after he had the 1st dose of immunotherapy. He presented to urgent care unit for left pleuritic chest pain. Workup with CT showed s
[2023-04-19 14:32] LABS: Immature Reticulocyte Fraction 36.2 % (3.0-15.9); Reticulocyte Hemoglobin Conten 29.6 pg (28.2-35.7); Reticulocyte Percent 4.39 % (0.7-4.3); Reticulocytes Absolute 0.12 M/mm3 (0.02-0.1)
[2023-04-19 14:48] LABS: NT Pro B Type Natriuretic Pept 169 pg/mL (19.9-100)
[2023-04-19] MEDS: PERFLUTREN LIPID MICROSPHERES 1.5 ML VIAL DILUTED TO 10 ML TOTAL VOLUME IV PUSH (15:30)
--- NOTE | 2023-04-19 16:18 | IVDEFINITY ---
Prior to administration of IV Definity the patient was educated on the risks and benefits of the imaging enhancing agent including potential adverse side effects. The patient verbalized understanding. Allergies were verified. No exclusion criteria were identified and at least one of the following inclusion criteria were met: 1) physician request, 2) patient technically difficult to image (per the [place] guidelines of two or more segments not discernable within the apical view), or 3) questionable left ventricular function. ?
[2023-04-19 16:42] LABS: Glucose Point of Care 171 mg/dl (65-105)
[2023-04-19] MEDS: INSULIN GLARGINE (*BKC) 100 UNITS/ML 15 UNITS SUB-Q (20:59)
[2023-04-19 21:54] LABS: Glucose Point of Care 121 mg/dl (65-105)
[2023-04-20] VITALS (15 sets, daily range): BP systolic 104–128; BP diastolic 63–87; PULSE 98–113; RESP 16–20; TEMP 36.1–37.2; O2SAT 91–98
[2023-04-20 07:46] LABS: Glucose Point of Care 132 mg/dl (65-105)
[2023-04-20] MEDS: IPRATROPIUM 0.5 MG/ALBUTEROL SULFATE 2.5 MG AMPUL.NEB 3 ML INHALATION ×3 (07:49→20:47)
[2023-04-20] MEDS: FLUTICASONE/UMECLIDIN/VILANTER 100-62.5-25 MCG ELLIPTA 1 PUFF INHALATION (07:49)
[2023-04-20] MEDS: ROSUVASTATIN 10 MG TABLET 20 MG PO (08:18)
[2023-04-20] MEDS: CITALOPRAM HYDROBROMIDE 20 MG TABLET PO (08:19)
[2023-04-20] MEDS: lisinopriL 20 MG TABLET PO (08:19)
[2023-04-20] MEDS: CYANOCOBALAMIN 1,000 MCG TABLET 1000 MCG PO (08:20)
[2023-04-20] MEDS: FERROUS SULFATE 325 MG TABLET DR PO (08:20)
[2023-04-20] MEDS: LORazepam (*CRX) 0.5 MG TABLET PO ×2 (08:20→18:53)
--- NOTE | 2023-04-20 09:07 | PM.IMPN ---
Progress Note: A&P Assessment and Plan (1) Non-small cell lung cancer: Onset Date: 09/2022 Code(s): C34.90 - Malignant neoplasm of unspecified part of unspecified bronchus or lung Status: Acute (2) Obstructive sleep apnea: Code(s): G47.33 - Obstructive sleep apnea (adult) (pediatric) Status: Acute (3) COPD (chronic obstructive pulmonary disease): Code(s): J44.9 - Chronic obstructive pulmonary disease, unspecified Status: Acute (4) Acute respiratory failure with hypoxia: Code(s): J96.01 - Acute respiratory failure with hypoxia Status: Acute (5) COPD exacerbation: Code(s): J44.1 - Chronic obstructive pulmonary disease with (acute) exacerbation Status: Acute (6) Pleuritic pain: Code(s): R07.81 - Pleurodynia Status: Acute (7) Chronic anemia: Code(s): D64.9 - Anemia, unspecified Status: Acute (8) Thrombocytopenia: Code(s): D69.6 - Thrombocytopenia, unspecified Status: Acute (9) Type 2 diabetes mellitus: Code(s): E11.9 - Type 2 diabetes mellitus without complications Status: Acute (10) Hypertension: Code(s): I10 - Essential (primary) hypertension Status: Acute (11) Hyperlipidemia: Code(s): E78.5 - Hyperlipidemia, unspecified Status: Acute (12) Tobacco abuse: Code(s): Z72.0 - Tobacco use Status: Acute Plan The patient presented to the emergency department via private vehicle from home for evaluation of shortness of breath. Lung cancer He has known history of stage III non-small cell lung adenocarcinoma diagnosed September 2022 status post chemoradiation therapy completed in December 2022 currently on immunotherapy the 1st dose of which he received about a week ago following which he developed cough productive of thick white phlegm shortness of breath and left-sided pleuritic pain. Follow-up we heme oncologist outpatient He had worsening shortness of breath and hence presented to the ER. On ER evaluation he was hypoxic on arrival with oxygen saturation down to 86% on room air. He was placed on 2 L nasal cannula to maintain his SpO2 in the mid 90s. Pneumonia, superimposed with pneumonitis and atelectasis Chest x-ray with airspace and interstitial opacities right lung upper lobe consistent with radiation pneumonitis small pleural effusion. Airspace opacity at the lung bases consistent with atelectasis versus pneumonia. With emphysema. Chest CTA was negative for pulmonary embolism but did show evidence of emphysema and a stable right lung mass. There were no findings of pneumonia or radiation pneumonitis. Patient is immunocompromised, will continue azithromycin and ceftriaxone IV Follow-up procalcitonin level Consult pulmonology for evaluation treatment COPD exacerbation He was wheezing on evaluation is being treated as COPD exacerbation with pneumonia. Continue scheduled bronchodilators, antibiotics With IV ceftriaxone and azithromycin. not actively wheezing currently and and will avoid any steroid for now pleuritic pain is likely related to COPD and possible underlying pleurisy. Analgesics available as needed. Consult suture winder hand for evaluation treatment Chronic anemia and thrombocytopenia He has a chronic anemia and thrombocytopenia which are stable and will be monitored. transfused 1 unit of PRBC. With this likely is related to his recent immunotherapy/illness. No signs of active bleeding will continue to monitor H&H. Follow-up stool guaiac, iron panel, ferritin, reticulocyte Acute on chronic cHF Discussing the case with suture winder hand, CT showed b/l pleural effusion Suspecting CHF Follow-up BMP, echocardiogram Provide lasix 40 mg IV push once, Continue 40 mg b.i.d. IV push, pending echo report 04/20 ROBIN on CPAP. Smoking cessation is encouraged; he declines the need for nicotine patch. Type 2 diabetes hold metformin as he received IV contrast. Co
--- NOTE | 2023-04-20 09:23 | PM.PNPUL ---
Progress Note: A&P Assessment and Plan (1) Non-small cell lung cancer: Onset Date: 09/2022 Code(s): C34.90 - Malignant neoplasm of unspecified part of unspecified bronchus or lung Status: Acute (2) Obstructive sleep apnea: Code(s): G47.33 - Obstructive sleep apnea (adult) (pediatric) Status: Acute (3) Adenocarcinoma, lung: Code(s): C34.90 - Malignant neoplasm of unspecified part of unspecified bronchus or lung Status: Acute (4) COPD (chronic obstructive pulmonary disease): Code(s): J44.9 - Chronic obstructive pulmonary disease, unspecified Status: Acute (5) Acute respiratory failure with hypoxia: Code(s): J96.01 - Acute respiratory failure with hypoxia Status: Acute Assessment and Plan: An 83-year-old male patient, with a medical history of moderate centrilobular emphysema, as indicated by radiographic studies, and metastatic lung adenocarcinoma, is currently under durvalumab immunotherapy following completion of chemoradiation. He has been experiencing symptoms such as shortness of breath, a mild cough, chest congestion, and left-sided pleuritic chest pain for the past week. Chronic, small, and symmetrical pleural effusions were first identified in his chest CT scan conducted in late February of the previous year. The patient also has thrombocytopenia, anemia, and is undergoing treatment for a lower respiratory tract infection. His respiratory condition appears to be improving, with no signs of wheezing observed during the physical examination. Given his medical history and the results of the diagnostic studies, it is highly probable that the patient's increased sputum, shortness of breath, and hypoxemia can be attributed to a lower respiratory tract infection. The longstanding pleural effusions could be associated with congestive heart failure or a history of radiation to the mediastinum. Bilateral pleural effusions are not usually related to metastatic disease. Results of the sputum culture are currently awaited. MRSA screening ordered. Overall respiratory status stable or improving over the last 24 hours. Plan is to continue with current management out of bed to chair. Repeat chest x-ray in a.m. (6) Lung mass: Code(s): R91.8 - Other nonspecific abnormal finding of lung field Status: Acute Subjective Date/time seen: 04/20/23 09:23 Interval history: Patient reports no new respiratory symptoms. Denied shortness of breath while on supplemental oxygen. No fever chills. He has been on antibiotics for possible lower respiratory tract infection also work up in progress for bilateral pleural effusions Review of Systems Review of Systems: All systems reviewed & are unremarkable except as noted in HPI and below (HPI and below) Exam Narrative: GENERAL APPEARANCE: Well developed, well nourished, alert and cooperative, and appears to be in no acute distress while on supplemental oxygen HEENT: Sclerae anicteric and conjunctivae pink and moist. Extraocular movements were intact and pupils were equal, round, and reactive to light. The oral mucosa, hard and soft palate, tongue and posterior pharynx were normal. NECK: Supple. There was no thyroid enlargement, and no tenderness, or masses were felt. No JVD CHEST: Normal AP diameter and normal contour without any kyphoscoliosis. LUNGS: Distant breath sounds bilaterally no wheezing CARDIAC: There was a regular rate and rhythm without any murmurs. ABDOMEN: Soft and nontender with normal bowel sounds. There was no organomegaly. LYMPH NODES: No lymphadenopathy was appreciated in the neck. EXTREMITIES: No cyanosis, clubbing or edema. NEUROLOGIC: Alert and oriented x 3. Normal affect. Objective Data Vital Signs Vital Signs: Vital Signs - 24 hr 04/19/23 11:41 04/19/23 14:00 04/19/23 14:45 Temperature 37.0 C Pulse Rate 97 78 Respiratory Rate 20 16 Blood Pressure 107/58 L Pulse Oximetry
[2023-04-20 09:42] LABS: Basophils Percent Auto 0.5 % (0.2-1.2); Eosinophils Absolute Auto 0.1 K/mm3 (0-0.3); Eosinophils Percent Auto 2.5 % (0-4.4); Hematocrit 28.1 % (42.0-52.0); Hemoglobin 8.7 g/dL (14.0-18.0); Immature Granulocyte Absolute 0.02 K/mm3 (0.00-0.031); Immature Granulocyte Percent A 0.5 % (0-0.5); Immature Platelet Fraction Pct 3.8 % (0.9-11.2); Lymphocytes Absolute Auto 0.55 K/mm3 (0.9-3.2); Lymphocytes Percent Auto 13.9 % (18.3-44.2); Mean Corpuscular Hemoglobin 30.7 pg (26-34); Mean Corpuscular Volume 99.3 fl (80-100); Mean Platelet Volume 9.7 fl (7.4-10.4); Monocytes Absolute Auto 0.5 K/mm3 (0.1-0.6); Monocytes Percent Auto 11.4 % (2.6-8.5); Neutrophils Absolute Auto 2.8 K/mm3 (1.3-6.7); Neutrophils Percent Auto 71.2 % (45.5-73.1); Platelet Count Result 73 k/mm3 (150-375); Red Blood Count 2.83 M/mm3 (4.6-6.20); Red Cell Distribution Width 20.1 % (11.5-14.5)
[2023-04-20 09:52] LABS: Anion Gap 6 mmol/L (8-16); Blood Urea Nitrogen 22 mg/dL (9-20); Calcium 8.9 mg/dL (8.4-10.2); Carbon Dioxide 30 mmol/L (22-30); Chloride 103 mmol/L (98-107); Estimated CRCL calculation 39 ml/min; Estimated Glomerular Filt Rate 53; Glucose 158 mg/dL (65-110); Potassium 4.2 mmol/L (3.4-5.0); Sodium 139 mmol/L (137-145)
[2023-04-20 09:57] LABS: MRSA (PCR) NOT DETECTED (NOT DETECTE)
[2023-04-20 09:59] LABS: NT Pro B Type Natriuretic Pept 206 pg/mL (19.9-100)
[2023-04-20 11:27] LABS: Glucose Point of Care 148 mg/dl (65-105)
[2023-04-20] MEDS: AZITHROMYCIN 500 MG/NS 250 ML 500 MG/250 ML BAG 250 MG IVPB (14:31)
--- NOTE | 2023-04-20 15:17 | PCCARD ---
CANCELLED LIMITED ECHO ORDERED 04/20/23 - LIMITED ECHO WITH CONTRAST WAS COMPLETED 04/19/23
[2023-04-20 16:43] LABS: Glucose Point of Care 484 mg/dl (65-105)
[2023-04-20] MEDS: INSULIN ASPART (*BKC) 100 UNITS/ML 10 UNITS SUB-Q (17:22)
[2023-04-20] MEDS: FUROSEMIDE INJ 40 MG/4 ML VIAL IV PUSH (17:25)
[2023-04-20] MEDS: INSULIN GLARGINE (*BKC) 100 UNITS/ML 15 UNITS SUB-Q (20:37)
[2023-04-20 20:54] LABS: Glucose Point of Care 175 mg/dl (65-105)
[2023-04-20] MEDS: WATER FOR IRRIGATION, STERILE 1,000 ML BOTTLE 1000 ML (23:00)
[2023-04-21] VITALS (12 sets, daily range): BP systolic 90–109; BP diastolic 53–58; PULSE 97–104; RESP 18–20; TEMP 36.4–37.1; O2SAT 86–97
[2023-04-21] MEDS: FLUTICASONE/UMECLIDIN/VILANTER 100-62.5-25 MCG ELLIPTA 1 PUFF INHALATION (07:09)
[2023-04-21] MEDS: IPRATROPIUM 0.5 MG/ALBUTEROL SULFATE 2.5 MG AMPUL.NEB 3 ML INHALATION ×3 (07:10→20:54)
[2023-04-21 07:47] LABS: Glucose Point of Care 163 mg/dl (65-105)
[2023-04-21 07:48] LABS: Anion Gap 6 mmol/L (8-16); Blood Urea Nitrogen 29 mg/dL (9-20); Calcium 8.9 mg/dL (8.4-10.2); Carbon Dioxide 29 mmol/L (22-30); Chloride 103 mmol/L (98-107); Estimated CRCL calculation 36 ml/min; Estimated Glomerular Filt Rate 49; Glucose 164 mg/dL (65-110); Potassium 4.2 mmol/L (3.4-5.0); Sodium 138 mmol/L (137-145)
[2023-04-21 07:52] LABS: Basophils Percent Auto 0.6 % (0.2-1.2); Eosinophils Absolute Auto 0.1 K/mm3 (0-0.3); Hematocrit 28.4 % (42.0-52.0); Hemoglobin 8.4 g/dL (14.0-18.0); Immature Granulocyte Absolute 0.02 K/mm3 (0.00-0.031); Immature Granulocyte Percent A 0.4 % (0-0.5); Immature Platelet Fraction Pct 3.9 % (0.9-11.2); Lymphocytes Absolute Auto 1.13 K/mm3 (0.9-3.2); Lymphocytes Percent Auto 24.5 % (18.3-44.2); Mean Corpuscular HGB Conc 29.6 g/dl (32-36); Mean Corpuscular Hemoglobin 30.1 pg (26-34); Mean Corpuscular Volume 101.8 fl (80-100); Mean Platelet Volume 10.2 fl (7.4-10.4); Monocytes Absolute Auto 0.6 K/mm3 (0.1-0.6); Monocytes Percent Auto 12.8 % (2.6-8.5); Neutrophils Absolute Auto 2.7 K/mm3 (1.3-6.7); Neutrophils Percent Auto 58.7 % (45.5-73.1); Platelet Count Result 78 k/mm3 (150-375); Red Blood Count 2.79 M/mm3 (4.6-6.20); White Blood Count 4.6 K/mm3 (4.5-10.0)
[2023-04-21 08:30] LABS: Hypochromasia 1+ (NORMAL); Platelet Estimate Decreased (Adequate); Schistocytes None Seen (NORMAL)
[2023-04-21 08:31] LABS: Anisocytosis 1+ (NORMAL)
[2023-04-21] MEDS: LORazepam (*CRX) 0.5 MG TABLET PO ×3 (08:44→17:54)
[2023-04-21] MEDS: lisinopriL 20 MG TABLET PO (08:44)
[2023-04-21] MEDS: ROSUVASTATIN 10 MG TABLET 20 MG PO (08:44)
[2023-04-21] MEDS: FERROUS SULFATE 325 MG TABLET DR PO (08:44)
[2023-04-21] MEDS: FUROSEMIDE INJ 40 MG/4 ML VIAL IV PUSH (08:44)
[2023-04-21] MEDS: CITALOPRAM HYDROBROMIDE 20 MG TABLET PO (08:47)
[2023-04-21] MEDS: CYANOCOBALAMIN 1,000 MCG TABLET 1000 MCG PO (08:47)
--- NOTE | 2023-04-21 09:14 | P.PNIM_ITS ---
Progress Note: A&P Assessment and Plan (1) Non-small cell lung cancer: Onset Date: 09/2022 Code(s): C34.90 - Malignant neoplasm of unspecified part of unspecified bronchus or lung Status: Acute (2) Obstructive sleep apnea: Code(s): G47.33 - Obstructive sleep apnea (adult) (pediatric) Status: Acute (3) COPD (chronic obstructive pulmonary disease): Code(s): J44.9 - Chronic obstructive pulmonary disease, unspecified Status: Acute (4) Acute respiratory failure with hypoxia: Code(s): J96.01 - Acute respiratory failure with hypoxia Status: Acute (5) COPD exacerbation: Code(s): J44.1 - Chronic obstructive pulmonary disease with (acute) exacerbation Status: Acute (6) Pleuritic pain: Code(s): R07.81 - Pleurodynia Status: Acute (7) Chronic anemia: Code(s): D64.9 - Anemia, unspecified Status: Acute (8) Thrombocytopenia: Code(s): D69.6 - Thrombocytopenia, unspecified Status: Acute (9) Type 2 diabetes mellitus: Code(s): E11.9 - Type 2 diabetes mellitus without complications Status: Acute (10) Hypertension: Code(s): I10 - Essential (primary) hypertension Status: Acute (11) Hyperlipidemia: Code(s): E78.5 - Hyperlipidemia, unspecified Status: Acute (12) Tobacco abuse: Code(s): Z72.0 - Tobacco use Status: Acute Plan The patient presented to the emergency department via private vehicle from home for evaluation of shortness of breath. Lung cancer He has known history of stage III non-small cell lung adenocarcinoma diagnosed September 2022 status post chemoradiation therapy completed in December 2022 currently on immunotherapy the 1st dose of which he received about a week ago following which he developed cough productive of thick white phlegm shortness of breath and left-sided pleuritic pain. Follow-up we heme oncologist outpatient Acute respiratory failure He had worsening shortness of breath and hence presented to the ER. On ER evaluation he was hypoxic on arrival with oxygen saturation down to 86% on room air. He was placed on 2 L nasal cannula to maintain his SpO2 in the mid 90s. now pt is on 3 l O2 via nasal cannula, pulse ox 98-100% Pneumonia, superimposed with pneumonitis and atelectasis Chest x-ray with airspace and interstitial opacities right lung upper lobe consistent with radiation pneumonitis small pleural effusion. Airspace opacity at the lung bases consistent with atelectasis versus pneumonia. With emphysema. Chest CTA was negative for pulmonary embolism but did show evidence of emphysema and a stable right lung mass. There were no findings of pneumonia or radiation pneumonitis. Patient is immunocompromised, will continue azithromycin and ceftriaxone IV Follow-up procalcitonin level Consult pulmonology for evaluation treatment COPD exacerbation He was wheezing on evaluation is being treated as COPD exacerbation with pneumonia. Continue scheduled bronchodilators, antibiotics With IV ceftriaxone and azithromycin. not actively wheezing currently and and will avoid any steroid for now pleuritic pain is likely related to COPD and possible underlying pleurisy. Analgesics available as needed. Consult manufacturing supervisor for evaluation treatment Chronic anemia and thrombocytopenia He has a chronic anemia and thrombocytopenia which are stable and will be monitored. transfused 1 unit of PRBC. With this likely is related to his recent immunotherapy/illness. No signs of active bleeding will continue to monitor H&H.
--- NOTE | 2023-04-21 09:22 | PM.PNPUL ---
Progress Note: A&P Assessment and Plan (1) Non-small cell lung cancer: Onset Date: 09/2022 Code(s): C34.90 - Malignant neoplasm of unspecified part of unspecified bronchus or lung Status: Acute (2) Obstructive sleep apnea: Code(s): G47.33 - Obstructive sleep apnea (adult) (pediatric) Status: Acute (3) Adenocarcinoma, lung: Code(s): C34.90 - Malignant neoplasm of unspecified part of unspecified bronchus or lung Status: Acute (4) COPD (chronic obstructive pulmonary disease): Code(s): J44.9 - Chronic obstructive pulmonary disease, unspecified Status: Acute (5) Acute respiratory failure with hypoxia: Code(s): J96.01 - Acute respiratory failure with hypoxia Status: Acute Assessment and Plan: An 83-year-old male patient, with a medical history of moderate centrilobular emphysema, as indicated by radiographic studies, and metastatic lung adenocarcinoma, is currently under durvalumab immunotherapy following completion of chemoradiation. He has been experiencing symptoms such as shortness of breath, a mild cough, chest congestion, and left-sided pleuritic chest pain for the past week. Chronic, small, and symmetrical pleural effusions were first identified in his chest CT scan conducted in late February of the previous year. The patient also has thrombocytopenia, anemia, and is undergoing treatment for a lower respiratory tract infection. His respiratory condition appears to be improving, with no signs of wheezing observed during the physical examination. Given his medical history and the results of the diagnostic studies, it is highly probable that the patient's increased sputum, shortness of breath, and hypoxemia can be attributed to a lower respiratory tract infection. The longstanding pleural effusions could be associated with congestive heart failure or a history of radiation to the mediastinum. Bilateral pleural effusions are not usually related to metastatic disease. Results of the sputum culture are currently awaited. Overall respiratory status stable or improving over the last 24 hours. Repeat chest x-ray ordered for today regarding bilateral pleural effusions. (6) Lung mass: Code(s): R91.8 - Other nonspecific abnormal finding of lung field Status: Acute Subjective Date/time seen: 04/21/23 09:22 Interval history: Patient has no new respiratory symptoms. He feels better overall. Mild cough but no shortness of breath while on supplemental oxygen. He has been on antibiotics for lower respiratory tract infection. Exam Narrative: GENERAL APPEARANCE: Well developed, well nourished, alert and cooperative, and appears to be in no acute distress while on supplemental oxygen HEENT: Sclerae anicteric and conjunctivae pink and moist. Extraocular movements were intact and pupils were equal, round, and reactive to light. The oral mucosa, hard and soft palate, tongue and posterior pharynx were normal. NECK: Supple. There was no thyroid enlargement, and no tenderness, or masses were felt. No JVD CHEST: Normal AP diameter and normal contour without any kyphoscoliosis. LUNGS: Distant breath sounds bilaterally no wheezing CARDIAC: There was a regular rate and rhythm without any murmurs. ABDOMEN: Soft and nontender with normal bowel sounds. There was no organomegaly. LYMPH NODES: No lymphadenopathy was appreciated in the neck. EXTREMITIES: No cyanosis, clubbing or edema. NEUROLOGIC: Alert and oriented x 3. Normal affect. Objective Data Vital Signs Vital Signs: Vital Signs - 24 hr 04/20/23 13:35 04/20/23 13:43 04/20/23 14:00 Temperature 36.5 C Pulse Rate 109 H 111 H 110 H Respiratory Rate 18 18 20 Blood Pressure 108/63 Pulse Oximetry 98 Oxygen Delivery Oxygen Flow Rate Fraction of Inspired Oxygen 04/20/23 10:05 04/20/23 20:47 04/20/23 21:05 Temperature 36.1 C L Pulse Rate 107 H 102 H 98 Respiratory Rate 20 18 18 Blood
[2023-04-21 11:42] LABS: Glucose Point of Care 183 mg/dl (65-105)
[2023-04-21] MEDS: AMOXICILLIN/CLAVULANATE K 875-125 MG TAB 1 TABLET PO ×2 (15:37→20:12)
[2023-04-21 17:07] LABS: Glucose Point of Care 240 mg/dl (65-105)
[2023-04-21] MEDS: INSULIN ASPART (*BKC) 100 UNITS/ML SUB-Q ×2 (17:55→20:56)
[2023-04-21] MEDS: FUROSEMIDE INJ 40 MG/4 ML VIAL 20 MG IV PUSH (17:56)
[2023-04-21] MEDS: ACETAMINOPHEN 325 MG TABLET 650 MG PO (20:12)
[2023-04-21] MEDS: INSULIN GLARGINE (*BKC) 100 UNITS/ML 15 UNITS SUB-Q (20:56)
[2023-04-21 21:00] LABS: Glucose Point of Care 256 mg/dl (65-105)
[2023-04-22] VITALS (12 sets, daily range): BP systolic 106–112; BP diastolic 51–71; PULSE 67–113; RESP 18–94; TEMP 36.5–36.9; O2SAT 85–92
[2023-04-22 06:34] LABS: Basophils Percent Auto 0.5 % (0.2-1.2); Eosinophils Absolute Auto 0.2 K/mm3 (0-0.3); Eosinophils Percent Auto 4.1 % (0-4.4); Hematocrit 27.8 % (42.0-52.0); Hemoglobin 8.5 g/dL (14.0-18.0); Immature Granulocyte Absolute 0.02 K/mm3 (0.00-0.031); Immature Granulocyte Percent A 0.5 % (0-0.5); Immature Platelet Fraction Pct 3.7 % (0.9-11.2); Lymphocytes Absolute Auto 0.58 K/mm3 (0.9-3.2); Lymphocytes Percent Auto 15.8 % (18.3-44.2); Mean Corpuscular HGB Conc 30.6 g/dl (32-36); Mean Corpuscular Hemoglobin 30.4 pg (26-34); Mean Corpuscular Volume 99.3 fl (80-100); Mean Platelet Volume 10.4 fl (7.4-10.4); Monocytes Absolute Auto 0.5 K/mm3 (0.1-0.6); Monocytes Percent Auto 12.5 % (2.6-8.5); Neutrophils Absolute Auto 2.4 K/mm3 (1.3-6.7); Neutrophils Percent Auto 66.6 % (45.5-73.1); Platelet Count Result 78 k/mm3 (150-375); Red Cell Distribution Width 19.5 % (11.5-14.5); White Blood Count 3.7 K/mm3 (4.5-10.0)
[2023-04-22 06:44] LABS: Anion Gap 7 mmol/L (8-16); Blood Urea Nitrogen 40 mg/dL (9-20); Calcium 8.9 mg/dL (8.4-10.2); Carbon Dioxide 29 mmol/L (22-30); Chloride 102 mmol/L (98-107); Estimated CRCL calculation 28 ml/min; Estimated Glomerular Filt Rate 36; Glucose 192 mg/dL (65-110); Potassium 4.2 mmol/L (3.4-5.0); Sodium 138 mmol/L (137-145)
[2023-04-22 07:31] LABS: Anisocytosis 1+ (NORMAL); Hypochromasia 1+ (NORMAL); Microcytosis 1+ (NORMAL); Platelet Estimate Decreased (Adequate); Schistocytes None Seen (NORMAL)
[2023-04-22 07:35] LABS: Glucose Point of Care 180 mg/dl (65-105)
[2023-04-22] MEDS: CYANOCOBALAMIN 1,000 MCG TABLET 1000 MCG PO (08:35)
[2023-04-22] MEDS: LORazepam (*CRX) 0.5 MG TABLET PO ×3 (08:35→17:54)
[2023-04-22] MEDS: FERROUS SULFATE 325 MG TABLET DR PO (08:35)
[2023-04-22] MEDS: CITALOPRAM HYDROBROMIDE 20 MG TABLET PO (08:35)
[2023-04-22] MEDS: AMOXICILLIN/CLAVULANATE K 875-125 MG TAB 1 TABLET PO ×2 (08:35→21:04)
[2023-04-22] MEDS: ROSUVASTATIN 10 MG TABLET 20 MG PO (08:35)
[2023-04-22] MEDS: FUROSEMIDE INJ 40 MG/4 ML VIAL 20 MG IV PUSH (08:35)
[2023-04-22] MEDS: lisinopriL 20 MG TABLET PO (08:35)
[2023-04-22] MEDS: FLUTICASONE/UMECLIDIN/VILANTER 100-62.5-25 MCG ELLIPTA 1 PUFF INHALATION (09:05)
[2023-04-22] MEDS: IPRATROPIUM 0.5 MG/ALBUTEROL SULFATE 2.5 MG AMPUL.NEB 3 ML INHALATION ×3 (09:05→21:37)
--- NOTE | 2023-04-22 09:37 | PM.PNPUL ---
Progress Note: A&P Assessment and Plan (1) Non-small cell lung cancer: Onset Date: 09/2022 Code(s): C34.90 - Malignant neoplasm of unspecified part of unspecified bronchus or lung Status: Acute (2) Obstructive sleep apnea: Code(s): G47.33 - Obstructive sleep apnea (adult) (pediatric) Status: Acute (3) Adenocarcinoma, lung: Code(s): C34.90 - Malignant neoplasm of unspecified part of unspecified bronchus or lung Status: Acute (4) COPD (chronic obstructive pulmonary disease): Code(s): J44.9 - Chronic obstructive pulmonary disease, unspecified Status: Acute (5) Acute respiratory failure with hypoxia: Code(s): J96.01 - Acute respiratory failure with hypoxia Status: Acute Assessment and Plan: An 83-year-old male patient, with a medical history of moderate centrilobular emphysema, as indicated by radiographic studies, and metastatic lung adenocarcinoma, is currently under durvalumab immunotherapy following completion of chemoradiation. He has been experiencing symptoms such as shortness of breath, a mild cough, chest congestion, and left-sided pleuritic chest pain for the past week. Chronic, small, and symmetrical pleural effusions were first identified in his chest CT scan conducted in late February of the previous year. The patient also has thrombocytopenia, anemia, and is undergoing treatment for a lower respiratory tract infection. His respiratory condition appears to be improving, with no signs of wheezing observed during the physical examination. Given his medical history and the results of the diagnostic studies, it is highly probable that the patient's increased sputum, shortness of breath, and hypoxemia can be attributed to a lower respiratory tract infection. The longstanding pleural effusions could be associated with congestive heart failure or fluid retention related to recent chemotherapy. Two. Bilateral pleural effusions are not usually related to metastatic disease. Respiratory status improved while patient on antibiotics and supplemental oxygen. Yesterday's chest x-ray however still showed pleural effusions unchanged. On today's testing creatinine is rising. I have discontinued Lasix. Plan: The patient is fit to be discharged from a respiratory perspective. However, the deteriorating renal failure might postpone the discharge, although the final decision lies with the hospitalist. The patient will persist with his daily Trelegy maintenance bronchodilator, albuterol for use as needed, and nebulized albuterol four times a day as required, and current antibiotic for a total of 8 days. Will most likely require supplemental oxygen at night i.e., 3 liters/minute and also during the day depending upon the home oxygen evaluation prior to DC. The patient is expected to revisit the pulmonary clinic for a follow-up in roughly 3-4 weeks. (6) Lung mass: Code(s): R91.8 - Other nonspecific abnormal finding of lung field Status: Acute Subjective Date/time seen: 04/22/23 09:37 Interval history: Patient has no new respiratory symptoms.. Coughed up some light yellow phlegm this a.m. afebrile. No shortness of breath while on supplemental oxygen via nasal cannula. Creatinine rising. Chest x-ray showed unchanged pleural effusions. Review of Systems Review of Systems: All systems reviewed & are unremarkable except as noted in HPI and below Exam Narrative: GENERAL APPEARANCE: Well developed, well nourished, alert and cooperative, and appears to be in no acute distress while on supplemental oxygen HEENT: Sclerae anicteric and conjunctivae pink and moist. Extraocular movements were intact and pupils were equal, round, and reactive to light. The oral mucosa, hard and soft palate, tongue and posterior pharynx were normal. NECK: Supple. There was no thyroid enlargement, and no tenderness, or masses were felt. No JVD CHEST: Normal AP diameter and normal contour
[2023-04-22 11:19] LABS: IFOB Positive Control Positive; Immunochemical Fecal Occult Bl Negative (N)
[2023-04-22 11:30] LABS: Glucose Point of Care 287 mg/dl (65-105)
[2023-04-22] MEDS: INSULIN ASPART (*BKC) 100 UNITS/ML SUB-Q ×3 (13:49→21:17)
[2023-04-22] MEDS: SODIUM CHLORIDE 0.45% 1,000 ML 100 ML IV CONT (16:00)
--- NOTE | 2023-04-22 16:39 | PM.IMPN ---
Progress Note: A&P Assessment and Plan (1) Non-small cell lung cancer: Onset Date: 09/2022 Code(s): C34.90 - Malignant neoplasm of unspecified part of unspecified bronchus or lung Status: Acute (2) Obstructive sleep apnea: Code(s): G47.33 - Obstructive sleep apnea (adult) (pediatric) Status: Acute (3) COPD (chronic obstructive pulmonary disease): Code(s): J44.9 - Chronic obstructive pulmonary disease, unspecified Status: Acute (4) Acute respiratory failure with hypoxia: Code(s): J96.01 - Acute respiratory failure with hypoxia Status: Acute (5) COPD exacerbation: Code(s): J44.1 - Chronic obstructive pulmonary disease with (acute) exacerbation Status: Acute (6) Pleuritic pain: Code(s): R07.81 - Pleurodynia Status: Acute (7) Chronic anemia: Code(s): D64.9 - Anemia, unspecified Status: Acute (8) Thrombocytopenia: Code(s): D69.6 - Thrombocytopenia, unspecified Status: Acute (9) Type 2 diabetes mellitus: Code(s): E11.9 - Type 2 diabetes mellitus without complications Status: Acute (10) Hypertension: Code(s): I10 - Essential (primary) hypertension Status: Acute (11) Hyperlipidemia: Code(s): E78.5 - Hyperlipidemia, unspecified Status: Acute (12) Tobacco abuse: Code(s): Z72.0 - Tobacco use Status: Acute Plan The patient presented to the emergency department via private vehicle from home for evaluation of shortness of breath. Lung cancer He has known history of stage III non-small cell lung adenocarcinoma diagnosed September 2022 status post chemoradiation therapy completed in December 2022 currently on immunotherapy the 1st dose of which he received about a week ago following which he developed cough productive of thick white phlegm shortness of breath and left-sided pleuritic pain. Follow-up we heme oncologist outpatient Acute respiratory failure He had worsening shortness of breath and hence presented to the ER. On ER evaluation he was hypoxic on arrival with oxygen saturation down to 86% on room air. He was placed on 2 L nasal cannula to maintain his SpO2 in the mid 90s. now pt is on 3 l O2 via nasal cannula, pulse ox 98-100% Pneumonia, superimposed with pneumonitis and atelectasis Chest x-ray with airspace and interstitial opacities right lung upper lobe consistent with radiation pneumonitis small pleural effusion. Airspace opacity at the lung bases consistent with atelectasis versus pneumonia. With emphysema. Chest CTA was negative for pulmonary embolism but did show evidence of emphysema and a stable right lung mass. There were no findings of pneumonia or radiation pneumonitis. Patient is immunocompromised, will continue azithromycin and ceftriaxone IV Follow-up procalcitonin level Consult pulmonology for evaluation treatment COPD exacerbation He was wheezing on evaluation is being treated as COPD exacerbation with pneumonia. Continue scheduled bronchodilators, antibiotics With IV ceftriaxone and azithromycin. not actively wheezing currently and and will avoid any steroid for now pleuritic pain is likely related to COPD and possible underlying pleurisy. Analgesics available as needed. Consult brand representative for evaluation treatment Chronic anemia and thrombocytopenia He has a chronic anemia and thrombocytopenia which are stable and will be monitored. transfused 1 unit of PRBC. With this likely is related to his recent immunotherapy/illness. No signs of active bleeding will continue to monitor H&H. Follow-up stool guaiac not collected, iron panel, no iron deficiency, ferritin 725, reticulocyte high Acute on chronic cHF Discussing the case with brand representative, CT showed b/l pleural effusion Suspecting CHF Follow-up BMP, echocardiogram Provide lasix 40 mg IV push once, Continue 40 mg b.i.d. IV push, pending echo report 04/20 echo: ? 1. Technically difficult
[2023-04-22 16:53] LABS: Glucose Point of Care 286 mg/dl (65-105)
[2023-04-22] MEDS: SODIUM CHLORIDE 0.9% IV 500 ML IV CONT (17:00)
[2023-04-22] MEDS: ACETAMINOPHEN 325 MG TABLET 650 MG PO (21:16)
[2023-04-22 21:17] LABS: Glucose Point of Care 252 mg/dl (65-105)
[2023-04-22] MEDS: INSULIN GLARGINE (*BKC) 100 UNITS/ML 15 UNITS SUB-Q (21:18)
--- NOTE | 2023-04-22 21:30 | PC.NURSE ---
90% on room air when in bed, applied home CPAP and O2 sat dropped to 85% while patient awake, had to bleed in 4L of O2 to get sat above 90%.
[2023-04-22] MEDS: HYDROcodone/acetaminophen (*CRX) 5-325 MG TABLET 1 TAB PO (23:02)
[2023-04-23] MEDS: IPRATROPIUM 0.5 MG/ALBUTEROL SULFATE 2.5 MG AMPUL.NEB 3 ML INHALATION ×2 (02:45→08:20)
[2023-04-23 02:47] VITALS: PULSE 86; RESP 18
[2023-04-23 06:00] VITALS: BP 101/52; PULSE 87; RESP 20; TEMP 36.6; O2SAT 91
[2023-04-23] MEDS: SODIUM CHLORIDE 0.45% 1,000 ML 100 ML IV CONT (06:47)
[2023-04-23 07:28] LABS: Hematocrit 26.7 % (42.0-52.0); Immature Platelet Fraction Pct 4.1 % (0.9-11.2); Mean Corpuscular Hemoglobin 30.3 pg (26-34); Mean Corpuscular Volume 101.1 fl (80-100); Mean Platelet Volume 10.3 fl (7.4-10.4); Platelet Count Result 76 k/mm3 (150-375); Red Blood Count 2.64 M/mm3 (4.6-6.20); Red Cell Distribution Width 19.3 % (11.5-14.5); White Blood Count 3.7 K/mm3 (4.5-10.0)
[2023-04-23 07:33] LABS: Glucose Point of Care 162 mg/dl (65-105)
[2023-04-23 07:37] LABS: Anion Gap 8 mmol/L (8-16); Blood Urea Nitrogen 32 mg/dL (9-20); Calcium 8.6 mg/dL (8.4-10.2); Carbon Dioxide 27 mmol/L (22-30); Chloride 102 mmol/L (98-107); Estimated CRCL calculation 36 ml/min; Estimated Glomerular Filt Rate 49; Glucose 163 mg/dL (65-110); Potassium 4.1 mmol/L (3.4-5.0); Sodium 137 mmol/L (137-145)
--- NOTE | 2023-04-23 08:00 | PM.DS ---
DS: Admitting Diagnosis Discharge Date 04/23/23 Admitting Diagnosis Acute hypoxic respiratory failure Pneumonia COPD Exacerbation DS: Discharge Diagnosis Discharge Diagnosis (1) Non-small cell lung cancer: Onset Date: 09/2022 Code(s): C34.90 - Malignant neoplasm of unspecified part of unspecified bronchus or lung Status: Acute (2) Obstructive sleep apnea: Code(s): G47.33 - Obstructive sleep apnea (adult) (pediatric) Status: Acute (3) COPD (chronic obstructive pulmonary disease): Code(s): J44.9 - Chronic obstructive pulmonary disease, unspecified Status: Acute (4) Acute respiratory failure with hypoxia: Code(s): J96.01 - Acute respiratory failure with hypoxia Status: Acute (5) COPD exacerbation: Code(s): J44.1 - Chronic obstructive pulmonary disease with (acute) exacerbation Status: Acute (6) Pleuritic pain: Code(s): R07.81 - Pleurodynia Status: Acute (7) Chronic anemia: Code(s): D64.9 - Anemia, unspecified Status: Acute (8) Thrombocytopenia: Code(s): D69.6 - Thrombocytopenia, unspecified Status: Acute (9) Type 2 diabetes mellitus: Code(s): E11.9 - Type 2 diabetes mellitus without complications Status: Acute (10) Hypertension: Code(s): I10 - Essential (primary) hypertension Status: Acute (11) Hyperlipidemia: Code(s): E78.5 - Hyperlipidemia, unspecified Status: Acute (12) Tobacco abuse: Code(s): Z72.0 - Tobacco use Status: Acute Plan The patient presented to the emergency department via private vehicle from home for evaluation of shortness of breath. Lung cancer He has known history of stage III non-small cell lung adenocarcinoma diagnosed September 2022 status post chemoradiation therapy completed in December 2022 currently on immunotherapy the 1st dose of which he received about a week ago following which he developed cough productive of thick white phlegm shortness of breath and left-sided pleuritic pain. Follow-up we heme oncologist outpatient Acute respiratory failure He had worsening shortness of breath and hence presented to the ER. On ER evaluation he was hypoxic on arrival with oxygen saturation down to 86% on room air. He was placed on 2 L nasal cannula to maintain his SpO2 in the mid 90s. now pt is on 3 l O2 via nasal cannula, pulse ox 98-100% Pneumonia, superimposed with pneumonitis and atelectasis Chest x-ray with airspace and interstitial opacities right lung upper lobe consistent with radiation pneumonitis small pleural effusion. Airspace opacity at the lung bases consistent with atelectasis versus pneumonia. With emphysema. Chest CTA was negative for pulmonary embolism but did show evidence of emphysema and a stable right lung mass. There were no findings of pneumonia or radiation pneumonitis. Patient is immunocompromised, will continue azithromycin and ceftriaxone IV Follow-up procalcitonin level Consult pulmonology for evaluation treatment COPD exacerbation He was wheezing on evaluation is being treated as COPD exacerbation with pneumonia. Continue scheduled bronchodilators, antibiotics With IV ceftriaxone and azithromycin. not actively wheezing currently and and will avoid any steroid for now pleuritic pain is likely related to COPD and possible underlying pleurisy. Analgesics available as needed. Consult reception clerk for evaluation treatment Chronic anemia and thrombocytopenia He has a chronic anemia and thrombocytopenia which are stable and will be monitored. transfused 1 unit of PRBC. With this likely is related to his recent immunotherapy/illness. No signs of active bleeding will continue to monitor H&H. Follow-up stool guaiac not collected, iron panel, no iron deficiency, ferritin 725, reticulocyte high Acute on chronic cHF Discussing the case with reception clerk, CT showed b/l pleural effusion Suspecting CHF Follow-up BMP,
[2023-04-23] MEDS: FLUTICASONE/UMECLIDIN/VILANTER 100-62.5-25 MCG ELLIPTA 1 PUFF INHALATION (08:20)
[2023-04-23 08:21] VITALS: PULSE 71; RESP 20; O2SAT 93
[2023-04-23 08:27] VITALS: PULSE 93; RESP 20
[2023-04-23] MEDS: CYANOCOBALAMIN 1,000 MCG TABLET 1000 MCG PO (08:40)
[2023-04-23] MEDS: ROSUVASTATIN 10 MG TABLET 20 MG PO (08:40)
[2023-04-23] MEDS: AMOXICILLIN/CLAVULANATE K 875-125 MG TAB 1 TABLET PO (08:41)
[2023-04-23] MEDS: LORazepam (*CRX) 0.5 MG TABLET PO (08:41)
[2023-04-23] MEDS: FERROUS SULFATE 325 MG TABLET DR PO (08:41)
[2023-04-23] MEDS: CITALOPRAM HYDROBROMIDE 20 MG TABLET PO (08:42)
== END 2023-04-23 09:30 | disposition home or self-care (01) | DRG 193 ==
LOC: ANHED 15:18 → ANH3MEDSUR 16:42
PROVIDERS: Hospitalist; Internal Medicine; Internal Medicine Pulmonary Disease; Physician Assistant; Admitting Provider General Practice; Emergency Provider Emergency Medicine; PCP Internal Medicine; Visit Provider Internal Medicine
DX: J18.9 Pneumonia, unspecified organism (principal); I50.33 Acute on chronic diastolic (congestive) heart failure; J96.01 Acute respiratory failure with hypoxia; J44.1 Chronic obstructive pulmonary disease with (acute) exacerbation; C34.91 Malignant neoplasm of unspecified part of right bronchus or lung; J44.0 Chronic obstructive pulmonary disease with (acute) lower respiratory infection; J43.2 Centrilobular emphysema; I11.0 Hypertensive heart disease with heart failure; E78.5 Hyperlipidemia, unspecified; E11.9 Type 2 diabetes mellitus without complications; D69.6 Thrombocytopenia, unspecified; D64.9 Anemia, unspecified; R59.0 Localized enlarged lymph nodes; G47.33 Obstructive sleep apnea (adult) (pediatric); F17.210 Nicotine dependence, cigarettes, uncomplicated; Z20.822 Contact with and (suspected) exposure to COVID-19; Z79.4 Long term (current) use of insulin; Z85.038 Personal history of other malignant neoplasm of large intestine
CPT/HCPCS: 36415; 36430; 71045; 71046; 71275; 80048; 80053; 82274; 82948; 83540; 83550; 83735; 83880; 84145; 85025; 85027; 85046; 85055; 86850; 86900; 86901; 86923; 87070; 87205; 87637; 87641; 93005; 93308; 94618; 94640; 96365; 96367; 97161; 97165; 97530; 97535; 99285; A9270; C8924; G0378; J0456; J0696; J1815; J1940; J7040; J7050; P9016; Q9957; Q9967

== ENCOUNTER 2023-05-08 12:07 | Inpatient (IN) | payer MEDICARE, SELFPAY ==
[2023-05-08] VITALS (42 sets, daily range): BP systolic 122–153; BP diastolic 57–98; PULSE 67–117; RESP 14–24; TEMP 36.2–36.6; O2SAT 84–97; BMI 29.1
--- NOTE | ~2023-05-08 | CT_ITS ---
EXAMINATION: CTA chest PE protocol DATE: 05/08/2023 15:04 INDICATION: Shortness of breath with exertion TECHNIQUE: Computed tomography angiography (CTA) of the chest was performed with 100 mL Omnipaque-350 intravenous contrast timed to evaluate the pulmonary arteries. Coronal maximum intensity projection 3D-reconstructions were created by the technologist. The dose-length product (DLP) was 720.46 mGy-cm. Automated exposure control and iterative reconstruction technique were employed. COMPARISON: 04/17/2023 FINDINGS: The pulmonary arteries are well-opacified. No pulmonary embolism is identified. There are s [id number] size pleural effusions with associated passive dependent atelectasis. There is moder ate emphysema. There is a stable 2 cm nodule in the right upper lobe. Scarring is again noted in the right upper lobe. There is a stable 5 mm subpleural nodule of the right middle lobe. There is a stabl e 5 mm nodule in the medial aspect of the right lower lobe No pathologically enlarged thoracic lymph nodes are identified. The heart size is normal. There is a small pericardial effusion. There are brid ging osteophytes at multiple levels in the spine, consistent with diffuse idiopathic skeletal hyperos tosis (DISH). IMPRESSION: 1. No pulmonary embolus identified. 2. Stable right upper lobe nodule, consistent with primary bronchogenic carcinoma. Stable right lung nodules are consistent with metastatic disease versus granulomatous disease. 3. Small amount of size pleural effusions. Reviewed, dictated and finalized at location [facility]. [facility] C[facility]IER IMPRESSION: 1. No pulmonary embolus identified. 2. Stable right upper lobe nodule, consistent with primary bronchogenic carcino ma. Stable right lung nodules are consistent with metastatic disease versus gra nulomatous disease. 3. Small amount of size pleural effusions.
--- NOTE | ~2023-05-08 | XR_ITS ---
EXAMINATION: XR chest 2V DATE: 05/08/2023 12:42 INDICATION: Shortness of breath. Recent pneumonia. TECHNIQUE: PA and lateral views of the chest were obtained. COMPARISON: Chest radiograph dated 04/21/[address] dated 04/17/2023 FINDINGS: Small bilateral pleural effusions with blunting at the posterior sulci and costophrenic angles. Mild opacities at the bilateral lung bases, left greater than right consistent with associated atelectasis and/or pneumonia. Unchanged coarse reticular opacities at the right upper lung zone corresponding to atelectasis/scarring in the indeterminate pulmonary nodule but appreciated on prior CT. No pneumotho rax. The cardiomediastinal silhouette is normal. Left internal jugular central venous port catheter w ith distal tip at the superior cavoatrial junction. IMPRESSION: 1. Persistent small bilateral pleural effusions with associated bibasilar atelectasis and/or pneumoni a. 2. Unchanged reticular opacities at the right upper lung zone corresponding to atelectasis/scarring a nd associated with an indeterminate pulmonary nodule on prior CT. Reviewed, dictated and finalized at location [facility]. [facility] [employer]PER[employer] IMPRESSION: 1. Persistent small bilateral pleural effusions with associated bibasilar atele ctasis and/or pneumonia. 2. Unchanged reticular opacities at the right upper lung zone corresponding to atelectasis/scarring and associated with an indeterminate pulmonary nodule on p rior CT.
--- NOTE | 2023-05-08 12:14 | ECG_ITS ---
Measurements Intervals [place] Rate: 111 P: 76 IN: 188 QRS: 46 QRSD: 98 T: 63 QT: 341 QTc: 465 Interpretive Statements SINUS TACHYCARDIA INCOMPLETE RIGHT BUNDLE BRANCH BLOCK BASELINE WANDER- II, V1-V2 ABNORMAL ECG COMPARED TO ECG 04/17/2023 12:59:17 SINUS TACHYCARDIA NOW PRESENT Electronically Signed On 05-08-2023 13:07:30 PSYCHIATRIST by Camilo Resendiz D.O.
[2023-05-08 12:33] LABS: Basophils Percent Auto 0.5 % (0.2-1.2); Eosinophils Absolute Auto 0.1 K/mm3 (0-0.3); Eosinophils Percent Auto 2.2 % (0-4.4); Hematocrit 31.3 % (42.0-52.0); Hemoglobin 9.2 g/dL (14.0-18.0); Immature Granulocyte Absolute 0.04 K/mm3 (0.00-0.031); Lymphocytes Absolute Auto 0.58 K/mm3 (0.9-3.2); Lymphocytes Percent Auto 13.9 % (18.3-44.2); Mean Corpuscular HGB Conc 29.4 g/dl (32-36); Mean Corpuscular Hemoglobin 30.1 pg (26-34); Mean Corpuscular Volume 102.3 fl (80-100); Mean Platelet Volume 9.6 fl (7.4-10.4); Monocytes Absolute Auto 0.3 K/mm3 (0.1-0.6); Monocytes Percent Auto 7.7 % (2.6-8.5); Neutrophils Absolute Auto 3.1 K/mm3 (1.3-6.7); Neutrophils Percent Auto 74.7 % (45.5-73.1); Platelet Count Result 108 k/mm3 (150-375); Red Blood Count 3.06 M/mm3 (4.6-6.20); Red Cell Distribution Width 19.6 % (11.5-14.5); White Blood Count 4.2 K/mm3 (4.5-10.0)
[2023-05-08 12:48] LABS: Alanine Aminotransferase 20 U/L (6-50); Alkaline Phosphatase 104 U/L (38-126); Anion Gap 11 mmol/L (8-16); Aspartate Amino Transferase 37 U/L (17-59); Bilirubin,Total 0.5 mg/dL (0.2-1.3); Blood Urea Nitrogen 21 mg/dL (9-20); Calcium 9.1 mg/dL (8.4-10.2); Carbon Dioxide 23 mmol/L (22-30); Chloride 106 mmol/L (98-107); Estimated CRCL calculation 42 ml/min; Estimated Glomerular Filt Rate 58; Glucose 210 mg/dL (65-110); Potassium 4.2 mmol/L (3.4-5.0); Sodium 140 mmol/L (137-145)
[2023-05-08 13:50] LABS: Platelet Estimate Adequate (Adequate)
[2023-05-08 13:51] LABS: Anisocytosis 1+ (NORMAL); Hypochromasia 1+ (NORMAL); Microcytosis 1+ (NORMAL); Schistocytes Rare (NORMAL)
--- NOTE | 2023-05-08 14:23 | ED.GENADULT ---
HPI - General Adult General Chief complaint: Shortness of Breath/Dyspnea Stated complaint: shortness of breath Time Seen by Provider: 05/08/23 13:35 History of Present Illness HPI narrative: 83-year-old male present to the emergency department for evaluation of worsening exertional shortness of breath. Patient had a recent admission to [facility] for pneumonia. Patient states since being discharged she has had persistent exertional shortness of breath the patient feels that has worsened over the course of the last 2 days. Patient does use trilogy and nebulized albuterol and states this does help with his shortness of breath. Patient is a smoker. Patient does have history of COPD but is not on oxygen. Patient does use CPAP at night without oxygen. Related Data Home Medications Medication Instructions Recorded Confirmed citalopram 20 mg tablet 20 mg PO DAILY 09/06/22 04/17/23 glimepiride 4 mg tablet 4 mg PO BID 09/06/22 04/17/23 lisinopril 20 mg tablet 20 mg PO DAILY 09/06/22 04/17/23 lorazepam 0.5 mg tablet 0.5 mg PO TID 09/06/22 04/17/23 metformin 1,000 mg tablet 1,000 mg PO BID 09/06/22 04/17/23 rosuvastatin 20 mg tablet 20 mg PO DAILY 09/06/22 04/17/23 insulin degludec 100 unit/mL (3 15 unit subcut HS 10/24/22 04/17/23 mL) subcutaneous pen (Tresiba FlexTouch U-100 insulin) ferrous sulfate 325 mg (65 mg 325 mg PO DAILY 04/17/23 04/17/23 iron) tablet mecobalamin (vitamin B12) 1,000 1,000 mcg PO DAILY 04/17/23 04/17/23 mcg chewable tablet (B12 Active) Allergies Allergy/AdvReac Type Severity Reaction Status Date / Time codeine Allergy heartache Verified 05/08/23 12:07 niacin AdvReac Flushing Verified 05/08/23 12:07 Review of Systems Review of Systems: All systems reviewed & are unremarkable except as noted in HPI and below PMFSH Past Medical History Medical History (Updated 05/08/23 @ 19:38 by Liliya Kraus MD) Acute renal insufficiency Chronic anemia Colon cancer (2014) Hyperlipidemia Hypertension Non-small cell lung cancer (09/2022) Arising in the right lung status post chemo radiation, currently on immunotherapy. Obstructive sleep apnea Thrombocytopenia Tobacco abuse Type 2 diabetes mellitus Surgical History Surgical History (Updated 04/17/23 @ 19:48 by Almaz Vick PA-C) History of bilateral cataract extraction History of cholecystectomy (2002) History of colon resection (2014) For colon cancer. History of skin graft Family History Family History Other Unknown family medical history Social History Social History (Updated 04/17/23 @ 19:49 by Almaz Vick PA-C) Social History: Surrogate medical decision maker: Mallorie Watson, spouse. Code status: Full code. Smoking packs per day: 1.5 Smoking cigarettes per day: 30.0 Smoking status: Current every day smoker Tobacco type: cigarettes Second hand tobacco smoke exposure: Yes Alcohol intake: never Substance use: never Substance use type: does not use Do You Feel Safe in your Home?: Yes Lack of Transportation: No Lack of Food: Never True Current Housing: I Have Housing Concerned About Future Housing: No Difficulty Paying Gas/Electric Bills: No Difficulty Paying for Meds: No Currently Unemployed: No Education: High School Diploma/GED Difficulty w/ Childcare or Family Care: No Living arrangements: with family Occupation/Education: retired Spiritual care concerns: No Exam Narrative: APPEARANCE: Well appearing, no pain, no distress, well-nourished. HEAD: normocephalic, atraumatic. EYES: PERRLA/EOMI, conjunctivae clear. NOSE: Normal no drainage EARS:TMS clear with good light reflex. THROAT: Pharynx clear, no exudate. NECK: Supple. No adenopathy, no masses. RESPIRATORY: Bilateral lower lobe rhonchi with expiratory wheeze CARDIOVASCULAR: Regular rate and rhythm without murmurs rubs or gallops. ABDOMINAL: Soft, no
[2023-05-08] MEDS: ALBUTEROL SULFATE NEB 2.5 MG/3 ML INH INHALATION ×2 (14:31→19:29)
[2023-05-08 14:51] LABS: NT Pro B Type Natriuretic Pept 298 pg/mL (19.9-100)
--- NOTE | 2023-05-08 16:53 | PC.NURSE ---
Pt ambulated to the bathroom with this RN. Pt ambulated without assistance. While ambulating back to the room, pt was becoming short of breath. Pt was 84% on RA after ambulating back from the bathroom. Pt sat and was then placed on 2L O2 NC. Pt satting at 97% resting in bed. MD jarrett.
[2023-05-08 17:57] LABS: Influenza A QL RT-PCR Negative (Negative); Influenza B QL RT-PCR Negative (Negative); RSV RNA, RT-PCR Negative (Negative); SARS-CoV-2 RNA PCR Negative (Negative)
--- NOTE | 2023-05-08 18:16 | PC.NURSE ---
Pt refusing to have blood cultures drawn from multiple sites. 1st set of cultures drawn from port, pt refusing second set due to refusal of blood draw. aware.
[2023-05-08] MEDS: methylPREDNISolone SOD SUCC 125 MG VIAL IV PUSH (18:34)
[2023-05-08] MEDS: AZITHROMYCIN 500 MG/NS 250 ML 500 MG/250 ML BAG 250 MG IVPB (19:08)
--- NOTE | 2023-05-08 19:34 | PM.IMHP ---
H&P: HPI History of Present Illness Date/Time: 05/08/23 19:34 Chief Complaint: Shortness of breath Narrative: This is 83-year-old male active smoker with history of clinical stage III non-small cell lung adenocarcinoma arising from the right lung diagnosed in September 2022 status post chemoradiation therapy completed in 12/2022 currently on immunotherapy, COPD, ROBIN on CPAP, insulin-dependent diabetes, hypertension, hyperlipidemia presenting with 2 weeks of shortness of breath. Patient was discharged on May 03 for [facility] with acute respiratory failure and pneumonia. He has never been prescribed home oxygen. Since his discharge he has been short of breath however he did not want to present to the hospital as his 's was 2 days ago. He complains of wheezing requiring neb treatments at home along with fever up to 101 and cough with shortness of breath and weight sputum production. In the ER he feels better status post DuoNeb treatment and Solu-Medrol. One dose of azithromycin and ceftriaxone also given. Review of Systems Review of Systems: All systems reviewed & are unremarkable except as noted in HPI and below (Subjective) [facility] Past Medical History Medical History (Updated 05/08/23 @ 19:38 by Liliya Kraus MD) Acute renal insufficiency Chronic anemia Colon cancer (2014) Hyperlipidemia Hypertension Non-small cell lung cancer (09/2022) Arising in the right lung status post chemo radiation, currently on immunotherapy. Obstructive sleep apnea Thrombocytopenia Tobacco abuse Type 2 diabetes mellitus Surgical History Surgical History (Updated 04/17/23 @ 19:48 by Almaz Vick PA-C) History of bilateral cataract extraction History of cholecystectomy (2002) History of colon resection (2014) For colon cancer. History of skin graft Family History Family History Other Unknown family medical history Social History Social History (Updated 04/17/23 @ 19:49 by Almaz Vick PA-C) Social History: Surrogate medical decision maker: Mallorie Watson, spouse. Code status: Full code. Smoking packs per day: 1.5 Smoking cigarettes per day: 30.0 Smoking status: Current every day smoker Tobacco type: cigarettes Second hand tobacco smoke exposure: Yes Alcohol intake: never Substance use: never Substance use type: does not use Do You Feel Safe in your Home?: Yes Lack of Transportation: No Lack of Food: Never True Current Housing: I Have Housing Concerned About Future Housing: No Difficulty Paying Gas/Electric Bills: No Difficulty Paying for Meds: No Currently Unemployed: No Education: Don't Know Difficulty w/ Childcare or Family Care: No Living arrangements: with family Occupation/Education: retired Spiritual care concerns: No Meds Home Medications and Allergies Home Medications Medication Instructions Recorded Confirmed Type citalopram 20 mg tablet 20 mg PO DAILY 09/06/22 04/17/23 History glimepiride 4 mg tablet 4 mg PO BID 09/06/22 04/17/23 History lisinopril 20 mg tablet 20 mg PO DAILY 09/06/22 04/17/23 History lorazepam 0.5 mg tablet 0.5 mg PO TID 09/06/22 04/17/23 History metformin 1,000 mg tablet 1,000 mg PO BID 09/06/22 04/17/23 History rosuvastatin 20 mg tablet 20 mg PO DAILY 09/06/22 04/17/23 History fluticasone fur. 100 mcg-umeclid 1 inh inhalation DAILYRT #60 ea 09/07/22 04/17/23 Rx 62.5 mcg-vilant 25 mcg inhalat.powder (Trelegy Ellipta) insulin degludec 100 unit/mL (3 15 unit subcut HS 10/24/22 04/17/23 History mL) subcutaneous pen (Tresiba FlexTouch U-100 insulin) ibuprofen 600 mg tablet 600 mg PO Q6H PRN pain #14 tabs 10/27/22 04/17/23 Rx oxycodone-acetaminophen 5 mg-325 0.5 - 1 tablet PO Q6H PRN pain #10 10/27/22 04/17/23 Rx mg tablet tabs ferrous sulfate 325 mg (65 mg 325 mg PO DAILY 04/17/23 04/17/23 History iron) tablet mecobalamin (vitamin B1
[2023-05-08] MEDS: CEFEPIME 2 GM/NS 50 ML 2 GM/50 ML BAG IVPB (20:30)
[2023-05-08 21:02] LABS: Glucose Point of Care 122 mg/dl (65-105)
[2023-05-08] MEDS: VANCOMYCIN 2,000 MG/NS 500 ML 2,000 MG/500 ML BAG 250 MG IVPB (21:04)
[2023-05-08] MEDS: guaiFENesin 12 HR 600 MG TABCR 1200 MG PO (21:09)
--- NOTE | 2023-05-08 21:32 | ADMGEN ---
This patient, Michele Watson, was admitted to IMU Room 214-01.@ 2044 Patient/family oriented to hospital policies and general routines including ID bracelet, bed and alarms, visiting hours, pain management, procedures, bathroom and other care routines, personal items, smoking policy, room service/diet, and visiting hours. Information on how to activate the Rapid Response Team has been discussed. Patient/Family are encouraged to report perceived risks to care and to ask questions if they do not understand what they are told or what they should do.
--- NOTE | 2023-05-08 22:59 | PC.NURSE ---
Admission has been completed unable to call pharmacy to update medication unable to call pharmacy. Daughter unable to provide medication list nurse left message on daughter and phone
[2023-05-09] VITALS (20 sets, daily range): BP systolic 108–138; BP diastolic 54–69; PULSE 78–107; RESP 18–19; TEMP 36.4–36.8; O2SAT 92–100
[2023-05-09] MEDS: methylPREDNISolone SOD SUCC 125 MG VIAL 60 MG IV PUSH ×4 (00:06→18:12)
[2023-05-09 00:31] LABS: MRSA (PCR) NOT DETECTED (NOT DETECTE)
--- NOTE | 2023-05-09 02:59 | PCRCNOTE ---
Patient refused his 0200 updraft treatment. Pt states the albuterol makes him shake and he would rather start at 0800.
[2023-05-09 05:39] LABS: Basophils Percent Auto 0.2 % (0.2-1.2); Hematocrit 29.7 % (42.0-52.0); Hemoglobin 8.9 g/dL (14.0-18.0); Immature Granulocyte Absolute 0.04 K/mm3 (0.00-0.031); Immature Granulocyte Percent A 0.9 % (0-0.5); Immature Platelet Fraction Pct 2.5 % (0.9-11.2); Lymphocytes Absolute Auto 0.38 K/mm3 (0.9-3.2); Lymphocytes Percent Auto 8.7 % (18.3-44.2); Mean Corpuscular Hemoglobin 30.4 pg (26-34); Mean Corpuscular Volume 101.4 fl (80-100); Mean Platelet Volume 9.3 fl (7.4-10.4); Monocytes Absolute Auto 0.1 K/mm3 (0.1-0.6); Monocytes Percent Auto 1.1 % (2.6-8.5); Neutrophils Absolute Auto 3.9 K/mm3 (1.3-6.7); Neutrophils Percent Auto 89.1 % (45.5-73.1); Platelet Count Result 87 k/mm3 (150-375); Red Blood Count 2.93 M/mm3 (4.6-6.20); White Blood Count 4.4 K/mm3 (4.5-10.0)
[2023-05-09 06:39] LABS: Anion Gap 11 mmol/L (8-16); Blood Urea Nitrogen 25 mg/dL (9-20); Calcium 9.1 mg/dL (8.4-10.2); Carbon Dioxide 21 mmol/L (22-30); Chloride 108 mmol/L (98-107); Estimated CRCL calculation 45 ml/min; Estimated Glomerular Filt Rate > 60; Glucose 291 mg/dL (65-110); Potassium 4.6 mmol/L (3.4-5.0); Sodium 140 mmol/L (137-145)
[2023-05-09] MEDS: ALBUTEROL SULFATE NEB 2.5 MG/3 ML INH INHALATION ×3 (07:19→20:39)
[2023-05-09 08:06] LABS: Glucose Point of Care 336 mg/dl (65-105)
[2023-05-09 08:20] LABS: Procalcitonin 0.1 ng/mL
[2023-05-09] MEDS: CEFEPIME 2 GM/NS 50 ML 2 GM/50 ML BAG IVPB ×2 (08:47→21:35)
[2023-05-09] MEDS: guaiFENesin 12 HR 600 MG TABCR 1200 MG PO ×2 (08:48→21:33)
[2023-05-09] MEDS: INSULIN ASPART (*BKC) 100 UNITS/ML SUB-Q ×3 (08:49→21:34)
[2023-05-09] MEDS: ENOXAPARIN 40 MG/0.4 ML SYRINGE SUB-Q (08:55)
[2023-05-09] MEDS: FERROUS SULFATE 325 MG TABLET DR PO (09:56)
[2023-05-09] MEDS: ROSUVASTATIN 10 MG TABLET 20 MG PO (09:56)
[2023-05-09] MEDS: lisinopriL 20 MG TABLET PO (09:56)
[2023-05-09] MEDS: LORazepam (*CRX) 0.5 MG TABLET PO ×2 (09:57→21:34)
[2023-05-09 12:02] LABS: Glucose Point of Care 404 mg/dl (65-105)
[2023-05-09] MEDS: INSULIN ASPART (*BKC) 100 UNITS/ML 6 UNITS SUB-Q (12:24)
--- NOTE | 2023-05-09 15:48 | PM.IMPN ---
Progress Note: A&P Assessment and Plan (1) COPD exacerbation: Code(s): J44.1 - Chronic obstructive pulmonary disease with (acute) exacerbation Status: Acute Assessment and Plan: Pt is on iv steroids and breathing treatments (2) Hypoxia: Code(s): R09.02 - Hypoxemia Status: Acute Assessment and Plan: PT is on 3 liters of oxygen (3) Obstructive sleep apnea: Code(s): G47.33 - Obstructive sleep apnea (adult) (pediatric) Status: Acute Assessment and Plan: CPAP orderd (4) Acute hypoxemic respiratory failure: Code(s): J96.01 - Acute respiratory failure with hypoxia Status: Acute Assessment and Plan: 83-year-old male active smoker with history of clinical stage III non-small cell lung adenocarcinoma arising from the right lung diagnosed in September 2022 status post chemoradiation therapy completed in 12/2022 currently on immunotherapy, COPD, ROBIN on CPAP, insulin-dependent diabetes, hypertension, hyperlipidemia presenting with 2 weeks of shortness of breath.? Patient was discharged on May 03 for [facility] with acute respiratory failure and pneumonia.? He has never been prescribed home oxygen.? Since his discharge he has been short of breath however he did not want to present to the hospital as his 's was 2 days ago.? He complains of wheezing requiring neb treatments at home along with fever up to 101 and cough with shortness of breath and weight sputum production.? In the ER he feels better status post DuoNeb treatment and Solu-Medrol.? One dose of azithromycin and ceftriaxone also given. For his febrile illness due for hospital-acquired pneumonia.? Start vancomycin and cefepime.? Check sputum culture and blood cultures along with Legionella and pneumococcal antigens. (5) HCAP (healthcare-associated pneumonia): Code(s): J18.9 - Pneumonia, unspecified organism Status: Acute Assessment and Plan: Continue vanc and cef oxygen at 3 liters IV steroids and breathing treatments Subjective Date/time seen: 05/09/23 15:48 Interval history: 83-year-old male active smoker with history of clinical stage III non-small cell lung adenocarcinoma arising from the right lung diagnosed in September 2022 status post chemoradiation therapy completed in 12/2022 currently on immunotherapy, COPD, ROBIN on CPAP, insulin-dependent diabetes, hypertension, hyperlipidemia presenting with 2 weeks of shortness of breath.? Patient was discharged on May 03 for [facility] [place] with acute respiratory failure and pneumonia. Pt needing 3 liters of oxygen coughing alot in the room Review of Systems Review of Systems: SOB and cough Exam Const: General: comfortable and no acute distress Resp: Effort & Inspection: normal respiratory effort Auscultation: diminished lung sounds (Severely diminished) Cardio: Rate: regular rate Rhythm: regular rhythm Heart sounds: no gallops, no murmurs and no rubs Neuro: Cranial nerves: Yes Equal, round and reactive pupils present Extrem: General: no edema Objective Data Vital Signs Vital Signs: Vital Signs - 24 hr 05/08/23 15:59 05/08/23 16:59 05/08/23 16:59 Temperature Pulse Rate 112 H Respiratory Rate 22 H Blood Pressure 138/77 Pulse Oximetry 90 84 L 97 Oxygen Delivery Room Air Nasal Cannula Oxygen Flow Rate 2 05/08/23 16:01 05/08/23 16:15 05/08/23 16:16 Temperature Pulse Rate 105 H 98 97 Respiratory Rate 23 H 21 H 15 Blood Pressure 134/75 124/68 Pulse Oximetry 95 90 92 Oxygen Delivery Oxygen Flow Rate 05/08/23 16:30 05/08/23 16:31 05/08/23 16:45 Temperature Pulse Rate 100 100 98 Respiratory Rate 15 20 16 Blood Pressure 134/75 Pulse Oximetry 97 92 91 Oxygen Delivery Oxygen Flow Rate 05/08/23 16:46 05/08/23 16:47 05/08/23 17:00 Temperature Pulse Rate 99 109 H 94 Respiratory Rate 19 18 17 Blood Pressure 129/81 Pulse Oximetry 9
[2023-05-09 16:24] LABS: Glucose Point of Care 360 mg/dl (65-105)
[2023-05-09 21:08] LABS: Glucose Point of Care 375 mg/dl (65-105)
[2023-05-09] MEDS: VANCOMYCIN 1,250 MG/NS 250 ML 1,250 MG/250 ML BAG 166.67 MG IVPB (22:37)
[2023-05-09] MEDS: INSULIN GLARGINE (*BKC) 100 UNITS/ML 15 UNITS SUB-Q (22:37)
[2023-05-10] VITALS (18 sets, daily range): BP systolic 119–144; BP diastolic 63–75; PULSE 63–117; RESP 16–18; TEMP 36.4–36.8; O2SAT 93–97
[2023-05-10] MEDS: methylPREDNISolone SOD SUCC 125 MG VIAL 60 MG IV PUSH ×2 (00:02→06:34)
[2023-05-10 04:59] LABS: Estimated CRCL calculation 39 ml/min; Estimated Glomerular Filt Rate 53
[2023-05-10] MEDS: LORazepam (*CRX) 0.5 MG TABLET PO ×3 (06:34→21:22)
[2023-05-10] MEDS: ALBUTEROL SULFATE NEB 2.5 MG/3 ML INH INHALATION ×3 (07:23→21:05)
[2023-05-10] MEDS: FLUTICASONE/UMECLIDIN/VILANTER 100-62.5-25 MCG ELLIPTA 1 PUFF INHALATION (07:38)
[2023-05-10 08:24] LABS: Glucose Point of Care 400 mg/dl (65-105)
[2023-05-10] MEDS: CEFEPIME 2 GM/NS 50 ML 2 GM/50 ML BAG IVPB ×2 (08:37→20:16)
[2023-05-10] MEDS: lisinopriL 20 MG TABLET PO (08:38)
[2023-05-10] MEDS: FERROUS SULFATE 325 MG TABLET DR PO (08:38)
[2023-05-10] MEDS: ENOXAPARIN 40 MG/0.4 ML SYRINGE SUB-Q (08:38)
[2023-05-10] MEDS: ROSUVASTATIN 10 MG TABLET 20 MG PO (08:38)
[2023-05-10] MEDS: guaiFENesin 12 HR 600 MG TABCR 1200 MG PO ×2 (08:38→20:16)
[2023-05-10] MEDS: INSULIN ASPART (*BKC) 100 UNITS/ML SUB-Q ×4 (08:40→20:23)
[2023-05-10 11:36] LABS: Glucose Point of Care 435 mg/dl (65-105)
--- NOTE | 2023-05-10 14:20 | PM.IMPN ---
Progress Note: A&P Assessment and Plan (1) COPD exacerbation: Code(s): J44.1 - Chronic obstructive pulmonary disease with (acute) exacerbation Status: Acute Assessment and Plan: Continue with iv steroids decreased dose and breathing treatments (2) Hypoxia: Code(s): R09.02 - Hypoxemia Status: Acute Assessment and Plan: PT is on 2 liters of oxygen slowly improving (3) Obstructive sleep apnea: Code(s): G47.33 - Obstructive sleep apnea (adult) (pediatric) Status: Acute Assessment and Plan: CPAP orderd (4) Acute hypoxemic respiratory failure: Code(s): J96.01 - Acute respiratory failure with hypoxia Status: Acute Assessment and Plan: 83-year-old male active smoker with history of clinical stage III non-small cell lung adenocarcinoma arising from the right lung diagnosed in September 2022 status post chemoradiation therapy completed in 12/2022 currently on immunotherapy, COPD, ROBIN on CPAP, insulin-dependent diabetes, hypertension, hyperlipidemia presenting with 2 weeks of shortness of breath.? Patient was discharged on May 03 for [facility] with acute respiratory failure and pneumonia.? He has never been prescribed home oxygen.? Since his discharge he has been short of breath however he did not want to present to the hospital as his 's was 2 days ago.? He complains of wheezing requiring neb treatments at home along with fever up to 101 and cough with shortness of breath and weight sputum production.? In the ER he feels better status post DuoNeb treatment and Solu-Medrol.? One dose of azithromycin and ceftriaxone also given. For his febrile illness due for hospital-acquired pneumonia.? Start vancomycin and cefepime.? Check sputum culture and blood cultures along with Legionella and pneumococcal antigens. (5) HCAP (healthcare-associated pneumonia): Code(s): J18.9 - Pneumonia, unspecified organism Status: Acute Assessment and Plan: Continue vanc and cef oxygen at 2 liters IV steroids and breathing treatments Subjective Date/time seen: 05/10/23 14:20 Interval history: 83-year-old male active smoker with history of clinical stage III non-small cell lung adenocarcinoma arising from the right lung diagnosed in September 2022 status post chemoradiation therapy completed in 12/2022 currently on immunotherapy, COPD, ROBIN on CPAP, insulin-dependent diabetes, hypertension, hyperlipidemia presenting with 2 weeks of shortness of breath.? Patient was discharged on May 03 for [facility] with acute respiratory failure and pneumonia. Pt needing 2 liters of oxygen coughing alot in the room Pts blood sugars are running high decrease steroid dose today can transition to medical floor Review of Systems Review of Systems: SOB and cough improving Exam Const: General: comfortable and no acute distress Eyes: Pupils: Equal, round and reactive pupils present Resp: Effort & Inspection: normal respiratory effort Auscultation: diminished lung sounds (Severely diminished) Cardio: Rate: regular rate Rhythm: regular rhythm Heart sounds: no gallops, no murmurs and no rubs Neuro: Cranial nerves: Yes Equal, round and reactive pupils present Extrem: General: no edema Objective Data Vital Signs Vital Signs: Vital Signs - 24 hr 05/09/23 16:00 05/09/23 16:00 05/09/23 16:00 Temperature 36.6 C Pulse Rate 96 104 H 98 Respiratory Rate 18 Blood Pressure 122/69 Pulse Oximetry 96 94 Oxygen Delivery Nasal Cannula Oxygen Flow Rate 2 Fraction of Inspired Oxygen 05/09/23 18:00 05/09/23 20:39 05/09/23 20:39 Temperature Pulse Rate 93 86 86 Respiratory Rate 18 18 Blood Pressure Pulse Oximetry 93 Oxygen Delivery Nasal Cannula Oxygen Flow Rate 3 Fraction of Inspired Oxygen 05/09/23 20:41 05/09/23 20:46 05/09/23 20:52 Temperature 36.6 C Pulse Rate 82 101 H Respiratory Rate 18 18
[2023-05-10 14:55] LABS: Anion Gap 9 mmol/L (8-16); Blood Urea Nitrogen 42 mg/dL (9-20); Calcium 8.9 mg/dL (8.4-10.2); Carbon Dioxide 20 mmol/L (22-30); Chloride 106 mmol/L (98-107); Estimated CRCL calculation 39 ml/min; Estimated Glomerular Filt Rate 53; Glucose 470 mg/dL (65-110); Potassium 5.4 mmol/L (3.4-5.0); Sodium 135 mmol/L (137-145)
--- NOTE | 2023-05-10 15:05 | PC.NURSE ---
pt transferred to room 247 via wheelchair, oriented to new room and environment, reviewed plan of care and MD orders
[2023-05-10 16:57] LABS: Glucose Point of Care 357 mg/dl (65-105)
[2023-05-10 17:38] LABS: Hematocrit 27.6 % (42.0-52.0); Hemoglobin 7.9 g/dL (14.0-18.0); Immature Platelet Fraction Pct 3.8 % (0.9-11.2); Mean Corpuscular HGB Conc 28.6 g/dl (32-36); Mean Corpuscular Hemoglobin 31.1 pg (26-34); Mean Corpuscular Volume 108.7 fl (80-100); Mean Platelet Volume 10.4 fl (7.4-10.4); Platelet Count Result 89 k/mm3 (150-375); Red Blood Count 2.54 M/mm3 (4.6-6.20); Red Cell Distribution Width 19.9 % (11.5-14.5); White Blood Count 7.6 K/mm3 (4.5-10.0)
[2023-05-10] MEDS: methylPREDNISolone SOD SUCC 40 MG VIAL 30 MG IV PUSH (20:15)
[2023-05-10] MEDS: INSULIN GLARGINE (*BKC) 100 UNITS/ML 15 UNITS SUB-Q (20:20)
[2023-05-10 20:30] LABS: Vancomycin Trough 11.3 ug/mL (10.0-20.0)
[2023-05-10 20:44] LABS: Glucose Point of Care 373 mg/dl (65-105)
[2023-05-10] MEDS: VANCOMYCIN 1,250 MG/NS 250 ML 1,250 MG/250 ML BAG 166.67 MG IVPB (21:21)
[2023-05-11] VITALS (18 sets, daily range): BP systolic 129–149; BP diastolic 69–83; PULSE 71–104; RESP 16–20; TEMP 36.1–36.8; O2SAT 92–98
[2023-05-11] MEDS: ALBUTEROL SULFATE NEB 2.5 MG/3 ML INH INHALATION ×4 (01:24→20:33)
[2023-05-11] MEDS: LORazepam (*CRX) 0.5 MG TABLET PO ×3 (05:30→21:38)
[2023-05-11 06:22] LABS: Estimated CRCL calculation 39 ml/min; Estimated Glomerular Filt Rate 53
[2023-05-11 08:16] LABS: Glucose Point of Care 352 mg/dl (65-105)
[2023-05-11] MEDS: INSULIN ASPART (*BKC) 100 UNITS/ML SUB-Q (09:14)
[2023-05-11] MEDS: CEFEPIME 2 GM/NS 50 ML 2 GM/50 ML BAG IVPB ×2 (09:16→21:39)
[2023-05-11] MEDS: FERROUS SULFATE 325 MG TABLET DR PO (09:17)
[2023-05-11] MEDS: guaiFENesin 12 HR 600 MG TABCR 1200 MG PO ×2 (09:17→21:38)
[2023-05-11] MEDS: lisinopriL 20 MG TABLET PO (09:17)
[2023-05-11] MEDS: ROSUVASTATIN 10 MG TABLET 20 MG PO (09:17)
[2023-05-11] MEDS: ENOXAPARIN 40 MG/0.4 ML SYRINGE SUB-Q (09:17)
[2023-05-11] MEDS: methylPREDNISolone SOD SUCC 40 MG VIAL 30 MG IV PUSH (09:18)
[2023-05-11] MEDS: FLUTICASONE/UMECLIDIN/VILANTER 100-62.5-25 MCG ELLIPTA 1 PUFF INHALATION (09:44)
[2023-05-11 11:47] LABS: Glucose Point of Care 481 mg/dl (65-105)
[2023-05-11] MEDS: INSULIN ASPART (*BKC) 100 UNITS/ML 10 UNITS SUB-Q ×2 (12:16→17:34)
--- NOTE | 2023-05-11 12:24 | PM.IMPN ---
Progress Note: A&P Assessment and Plan (1) COPD exacerbation: Code(s): J44.1 - Chronic obstructive pulmonary disease with (acute) exacerbation Status: Acute Assessment and Plan: Continue with iv steroids decreased dose and breathing treatments (2) Hypoxia: Code(s): R09.02 - Hypoxemia Status: Acute Assessment and Plan: PT is on 2 liters of oxygen slowly improving (3) Obstructive sleep apnea: Code(s): G47.33 - Obstructive sleep apnea (adult) (pediatric) Status: Acute Assessment and Plan: CPAP orderd (4) Acute hypoxemic respiratory failure: Code(s): J96.01 - Acute respiratory failure with hypoxia Status: Acute Assessment and Plan: 83-year-old male active smoker with history of clinical stage III non-small cell lung adenocarcinoma arising from the right lung diagnosed in September 2022 status post chemoradiation therapy completed in 12/2022 currently on immunotherapy, COPD, ROBIN on CPAP, insulin-dependent diabetes, hypertension, hyperlipidemia presenting with 2 weeks of shortness of breath.? Patient was discharged on May 03 for [facility] with acute respiratory failure and pneumonia.? He has never been prescribed home oxygen.? Since his discharge he has been short of breath however he did not want to present to the hospital as his 's was 2 days ago.? He complains of wheezing requiring neb treatments at home along with fever up to 101 and cough with shortness of breath and weight sputum production.? In the ER he feels better status post DuoNeb treatment and Solu-Medrol.? One dose of azithromycin and ceftriaxone also given. For his febrile illness due for hospital-acquired pneumonia.? on cef only now. Check sputum culture and blood cultures along with Legionella and pneumococcal antigens. (5) HCAP (healthcare-associated pneumonia): Code(s): J18.9 - Pneumonia, unspecified organism Status: Acute Assessment and Plan: Continue cef oxygen at 2 liters IV steroids and breathing treatments Subjective Date/time seen: 05/11/23 12:24 Interval history: 83-year-old male active smoker with history of clinical stage III non-small cell lung adenocarcinoma arising from the right lung diagnosed in September 2022 status post chemoradiation therapy completed in 12/2022 currently on immunotherapy, COPD, ROBIN on CPAP, insulin-dependent diabetes, hypertension, hyperlipidemia presenting with 2 weeks of shortness of breath.? Patient was discharged on May 03 for [facility] with acute respiratory failure and pneumonia. Pt needing 2 liters of oxygen coughing alot in the room Pts blood sugars are running high decrease steroid dose today can transition to medical floor Pt improving likely DC bradley will need walk study prior to DC still needing oxygen Review of Systems Review of Systems: SOB and cough improving All systems reviewed & are unremarkable except as noted in HPI and below (Subjective) Exam Const: General: comfortable and no acute distress Eyes: Pupils: Equal, round and reactive pupils present Resp: Effort & Inspection: normal respiratory effort Auscultation: diminished lung sounds (Severely diminished) Cardio: Rate: regular rate Rhythm: regular rhythm Heart sounds: no gallops, no murmurs and no rubs Neuro: Cranial nerves: Yes Equal, round and reactive pupils present Extrem: General: no edema Objective Data Vital Signs Vital Signs: Vital Signs - 24 hr 05/10/23 13:26 05/10/23 13:36 05/10/23 17:58 Temperature 36.7 C Pulse Rate 88 85 100 Respiratory Rate 18 18 16 Blood Pressure 119/63 Pulse Oximetry 93 Oxygen Delivery Oxygen Flow Rate Fraction of Inspired Oxygen 05/10/23 20:00 05/10/23 21:07 05/10/23 21:07 Temperature 36.6 C Pulse Rate 86 73 Respiratory Rate 18 18 Blood Pressure 136/75 Pulse Oximetry 96 95 Oxygen Delivery Nasal Cannula Oxygen Flow Rate 3 Fracti
[2023-05-11 16:49] LABS: Glucose Point of Care 431 mg/dl (65-105)
[2023-05-11] MEDS: ACETAMINOPHEN 325 MG TABLET 650 MG PO (18:40)
[2023-05-11 21:01] LABS: Glucose Point of Care 408 mg/dl (65-105)
[2023-05-11] MEDS: INSULIN ASPART (*BKC) 100 UNITS/ML 12 UNITS SUB-Q (21:39)
[2023-05-11] MEDS: INSULIN GLARGINE (*BKC) 100 UNITS/ML 18 UNITS SUB-Q (21:39)
[2023-05-11 23:45] LABS: Glucose Point of Care 315 mg/dl (65-105)
[2023-05-12] VITALS (18 sets, daily range): BP systolic 129–144; BP diastolic 64–79; PULSE 79–132; RESP 14–24; TEMP 36.8–37.1; O2SAT 85–96
[2023-05-12] MEDS: ALBUTEROL SULFATE NEB 2.5 MG/3 ML INH INHALATION ×3 (02:11→14:08)
[2023-05-12] MEDS: LORazepam (*CRX) 0.5 MG TABLET PO ×2 (05:18→14:16)
[2023-05-12 05:29] LABS: Anion Gap 8 mmol/L (8-16); Blood Urea Nitrogen 39 mg/dL (9-20); Carbon Dioxide 24 mmol/L (22-30); Chloride 108 mmol/L (98-107); Estimated CRCL calculation 45 ml/min; Estimated Glomerular Filt Rate > 60; Glucose 208 mg/dL (65-110); Potassium 4.4 mmol/L (3.4-5.0); Sodium 140 mmol/L (137-145)
[2023-05-12 08:04] LABS: Glucose Point of Care 161 mg/dl (65-105)
[2023-05-12] MEDS: FLUTICASONE/UMECLIDIN/VILANTER 100-62.5-25 MCG ELLIPTA 1 PUFF INHALATION (08:11)
--- NOTE | 2023-05-12 08:16 | PM.IMPN ---
Progress Note: A&P Assessment and Plan (1) COPD exacerbation: Code(s): J44.1 - Chronic obstructive pulmonary disease with (acute) exacerbation Status: Acute Assessment and Plan: Continue with iv steroids decreased dose and breathing treatments (2) Hypoxia: Code(s): R09.02 - Hypoxemia Status: Acute Assessment and Plan: PT is on 2 liters of oxygen slowly improving (3) Obstructive sleep apnea: Code(s): G47.33 - Obstructive sleep apnea (adult) (pediatric) Status: Acute Assessment and Plan: CPAP orderd (4) Acute hypoxemic respiratory failure: Code(s): J96.01 - Acute respiratory failure with hypoxia Status: Acute (5) HCAP (healthcare-associated pneumonia): Code(s): J18.9 - Pneumonia, unspecified organism Status: Acute Plan 83-year-old male active smoker with history of clinical stage III non-small cell lung adenocarcinoma arising from the right lung diagnosed in September 2022 status post chemoradiation therapy completed in 12/2022 currently on immunotherapy, COPD, ROBIN on CPAP, insulin-dependent diabetes, hypertension, hyperlipidemia presenting with 2 weeks of shortness of breath.? Patient was discharged on May 03 from [facility] with acute respiratory failure and pneumonia on 04/23/2023. Patient was hypoxic when ambulating to the restroom dropping down to 84% on room air in the ER. Not on supplemental oxygen at home. Chest x-ray showed persistent small bilateral pleural effusion with associated bibasilar atelectasis and/or pneumonia. Unchanged reticular opacities of the right upper lung zone corresponding to atelectasis/scarring associated with indeterminate pulmonary nodule on prior CT. Chest CTA done on 05/08/2023 with no PE identified. Stable right upper lobe nodule consistent with prior of any bronchogenic carcinoma. Stable right lung nodules are consistent with metastatic disease versus granulomatous disease. Small amount of pleural effusions noted. Patient noted with expiratory wheezes and rhonchi on presentation. Admitted for hypoxic respiratory failure related to COPD exacerbation. Patient was treated with IV steroids antibiotics. Ceftriaxone azithromycin was given. This was switched to cefepime. Steroid been switched to prednisone 40 mg daily. CPAP at night. Need a walk test prior to discharge. MRSA nares negative. Urine pneumococcal and urine Legionella pending. TB gold test was negative 03/29 negative for flu COVID and RSV. Blood culture no growth to date. Respiratory culture sample discarded due to oropharyngeal contamination Mild chronic thrombocytopenia/chronic anemia DVT prophylaxis Lovenox Subjective Date/time seen: 05/12/23 08:16 Interval history: 83-year-old male active smoker with history of clinical stage III non-small cell lung adenocarcinoma arising from the right lung diagnosed in September 2022 status post chemoradiation therapy completed in 12/2022 currently on immunotherapy, COPD, ROBIN on CPAP, insulin-dependent diabetes, hypertension, hyperlipidemia presenting with 2 weeks of shortness of breath.? Patient was discharged on May 03 from [facility] with acute respiratory failure and pneumonia on 04/23/2023. Patient was hypoxic when ambulating to the restroom dropping down to 84% on room air in the ER. Not on supplemental oxygen at home. Chest x-ray showed persistent small bilateral pleural effusion with associated bibasilar atelectasis and/or pneumonia. Unchanged reticular opacities of the right upper lung zone corresponding to atelectasis/scarring associated with indeterminate pulmonary nodule on prior CT. Chest CTA done on 05/08/2023 with no PE identified. Stable right upper lobe nodule consistent with prior of any bronchogenic carcinoma. Stable right lung nodules are consistent with metastatic disease versus granulomatous disease. Small amount of pleural effusions noted. Patient noted with expiratory whee
[2023-05-12] MEDS: FERROUS SULFATE 325 MG TABLET DR PO (09:00)
[2023-05-12] MEDS: guaiFENesin 12 HR 600 MG TABCR 1200 MG PO (09:01)
[2023-05-12] MEDS: ROSUVASTATIN 10 MG TABLET 20 MG PO (09:01)
[2023-05-12] MEDS: CEFEPIME 2 GM/NS 50 ML 2 GM/50 ML BAG IVPB (09:01)
[2023-05-12] MEDS: ENOXAPARIN 40 MG/0.4 ML SYRINGE SUB-Q (09:01)
[2023-05-12] MEDS: predniSONE 20 MG TABLET 40 MG PO (09:01)
--- NOTE | 2023-05-12 11:51 | PC.NURSE ---
RN, Pili Crowe, spoke with patient's daughter Dodie at 1150 on 05/12/23. Update given.
[2023-05-12 12:12] LABS: Glucose Point of Care 236 mg/dl (65-105)
[2023-05-12] MEDS: lisinopriL 20 MG TABLET PO (12:18)
[2023-05-12] MEDS: INSULIN ASPART (*BKC) 100 UNITS/ML SUB-Q (12:18)
[2023-05-12 12:24] LABS: Pneumococcal Antigen Urine Not Detected (Not Detected)
--- NOTE | 2023-05-12 14:17 | HOMEO2EVAL ---
Evaluation was performed at [facility] Home Oxygen Evaluation RC: Home Oxygen (O2) Evaluation Start: 05/11/23 12:35 Freq: ONCE Status: Active Protocol: RPE Activity Type Activity Date Activity User E-sign Co-sign Detail Recorded Client Recorded Date Recorded By Document 05/12/23 13:30 [email or web address] [email or web address] 05/12/23 14:17 DJO Document 05/12/23 13:35 [email or web address] 05/12/23 14:17 DJO Document 05/12/23 13:40 [email or web address] [email or web address] 05/12/23 14:17 DJO Document 05/12/23 13:45 [email or web address] [email or web address] 05/12/23 14:17 DJO Document 05/12/23 13:50 [email or web address] [email or web address] 05/12/23 14:17 DJO Document 05/12/23 14:05 [email or web address] [email or web address] 05/12/23 14:17 DJO 05/12/23 05/12/23 05/12/23 13:30 13:35 13:40 Home O2 Evaluation [Oxygen] -Test Phase Resting Exercise Exercise -Oxygen Delivery Room Air Room Air Nasal Cannula -Oxygen Flow Rate (L/min) 1 [Pulse Oximetry] -Pulse Oximetry (90-100 %) 90 85 L 86 L [Pulse Rate] -Pulse Rate (60-100 beats/min) 98 128 H 130 H [Evaluation] -Activity Tolerance [Charges] -Evaluation Charges O2 Evaluation by Pulmonary 05/12/23 05/12/23 05/12/23 13:45 13:50 14:05 Home O2 Evaluation [Oxygen] -Test Phase Exercise Exercise Resting -Oxygen Delivery Nasal Cannula Nasal Cannula Room Air -Oxygen Flow Rate (L/min) 2 3 [Pulse Oximetry] -Pulse Oximetry (90-100 %) 88 L 90 91 [Pulse Rate] -Pulse Rate (60-100 beats/min) 131 H 132 H 101 H [Evaluation] -Activity Tolerance Fair [Charges] -Evaluation Charges
--- NOTE | 2023-05-12 15:43 | PM.DS ---
DS: Admitting Diagnosis Discharge Date 05/12/2023 Admitting Diagnosis Shortness of breath DS: Discharge Diagnosis Discharge Diagnosis (1) COPD exacerbation: Code(s): J44.1 - Chronic obstructive pulmonary disease with (acute) exacerbation Status: Acute (2) Hypoxia: Code(s): R09.02 - Hypoxemia Status: Acute (3) Obstructive sleep apnea: Code(s): G47.33 - Obstructive sleep apnea (adult) (pediatric) Status: Acute (4) Acute hypoxemic respiratory failure: Code(s): J96.01 - Acute respiratory failure with hypoxia Status: Acute (5) HCAP (healthcare-associated pneumonia): Code(s): J18.9 - Pneumonia, unspecified organism Status: Acute DS: Summary Hospital Course Hospital Course: 83-year-old male active smoker with history of clinical stage III non-small cell lung adenocarcinoma arising from the right lung diagnosed in September 2022 status post chemoradiation therapy completed in 12/2022 currently on immunotherapy, COPD, ROBIN on CPAP, insulin-dependent diabetes, hypertension, hyperlipidemia presenting with 2 weeks of shortness of breath.? Patient was discharged on May 03 from [facility] with acute respiratory failure and pneumonia on 04/23/2023. Patient was hypoxic when ambulating to the restroom dropping down to 84% on room air in the ER. Not on supplemental oxygen at home. Chest x-ray showed persistent small bilateral pleural effusion with associated bibasilar atelectasis and/or pneumonia. Unchanged reticular opacities of the right upper lung zone corresponding to atelectasis/scarring associated with indeterminate pulmonary nodule on prior CT. Chest CTA done on 05/08/2023 with no PE identified. Stable right upper lobe nodule consistent with prior of any bronchogenic carcinoma. Stable right lung nodules are consistent with metastatic disease versus granulomatous disease. Small amount of pleural effusions noted. Patient noted with expiratory wheezes and rhonchi on presentation. Admitted for hypoxic respiratory failure related to COPD exacerbation. Patient was treated with IV steroids antibiotics. Ceftriaxone azithromycin was given. This was switched to cefepime. Steroid been switched to prednisone 40 mg daily. CPAP at night. Walk test performed prior to the discharge and required oxygen with exertion. He has also been 3 L with CPAP at night. He will be discharged home on oxygen with exertion 3 L and 3 L bled in with his CPAP. Switch antibiotics to oral and steroid taper at discharge. MRSA nares negative. Urine pneumococcal came back negative. Urine Legionella pending. TB gold test was negative 03/29 negative for flu COVID and RSV. Blood culture no growth to date. Respiratory culture sample discarded due to oropharyngeal contamination Mild chronic thrombocytopenia/chronic anemia DVT prophylaxis Lovenox Time Spent with Patient Time attestation: Total time spent providing and/or coordinating discharge services: 35 minutes Exam Narrative: APPEARANCE: Well appearing, no pain, no distress, well-nourished. HEAD: normocephalic, atraumatic. EYES: PERRLA/EOMI, conjunctivae clear. NOSE: Normal no drainage THROAT: Pharynx clear, no exudate. NECK: Supple. No adenopathy, no masses. RESPIRATORY:? Diminished breath sound bilaterally no respiratory distress no wheezes CARDIOVASCULAR: Regular rate and rhythm without murmurs rubs or gallops. ABDOMINAL: Soft, nontender, nondistended, normal bowel sounds MUSCULOSKELETAL: Moves all extremities. Strength/ROM intact, No edema, No calf tenderness. NEURO: Alert. Cranial nerves II through XII intact.? Grossly intact DS: Data Data Completed and Pending Labs on day of discharge: Labs from last 24 hours 05/12/23 05/12/23 05/12/23 12:05 07:58 05:00 Sodium 140 Potassium 4.4 Chloride 108 H Carbon Dioxide 24 Anion Gap 8 BUN 39 H Creatinine 1.10 Estim Creat Clear Calc 45 Estimated GFR > 60 Glucose
[2023-05-13 05:36] LABS: Legionella pneumophila Ag Ur Not Detected (Not Detected)
== END 2023-05-12 16:45 | disposition home or self-care (01) | DRG 190 ==
LOC: ANHED 16:38 → ANHIMU 20:19 → ANH2MED 05-10 14:53
PROVIDERS: Emergency Medicine; Family Medicine; General Practice; Admitting Provider Internal Medicine; Emergency Provider Emergency Medicine; PCP Internal Medicine; Visit Provider Internal Medicine
DX: J44.1 Chronic obstructive pulmonary disease with (acute) exacerbation (principal); J18.9 Pneumonia, unspecified organism; J96.01 Acute respiratory failure with hypoxia; C34.91 Malignant neoplasm of unspecified part of right bronchus or lung; Z20.822 Contact with and (suspected) exposure to COVID-19; G47.33 Obstructive sleep apnea (adult) (pediatric); J44.0 Chronic obstructive pulmonary disease with (acute) lower respiratory infection; F17.210 Nicotine dependence, cigarettes, uncomplicated; E11.9 Type 2 diabetes mellitus without complications; I10 Essential (primary) hypertension; E78.5 Hyperlipidemia, unspecified; D64.9 Anemia, unspecified; D69.6 Thrombocytopenia, unspecified; Z85.038 Personal history of other malignant neoplasm of large intestine; Z90.49 Acquired absence of other specified parts of digestive tract; Z98.42 Cataract extraction status, left eye; Z98.41 Cataract extraction status, right eye; Z51.12 Encounter for antineoplastic immunotherapy
CPT/HCPCS: 36415; 71046; 71275; 80048; 80053; 80202; 82565; 82948; 83735; 83880; 84145; 85025; 85027; 85055; 87040; 87070; 87205; 87449; 87637; 87641; 87899; 93005; 94618; 94640; 96365; 96366; 96367; 96372; 96375; 96376; 97161; 97165; 99285; A9270; G0378; J0456; J0692; J0696; J1650; J1815; J2920; J2930; J3370; J7512; Q9967

== ENCOUNTER 2023-06-23 08:37 | Outpatient (CLI) | payer MEDICARE, SELFPAY ==
--- NOTE | ~2023-06-23 | CT_ITS ---
Clinical Indication: Lung cancer CT Scan of the Chest with Contrast: Technique: Contiguous sections were acquired throughout the chest after intravenous administration of 75 cc of Omnipaque 350. Dose reduction technique was used on this scan by utilizing automated exposu re control and iterative reconstruction technique. The dose-length product (DLP) was 365.41 mGy-cm. COMPARISON: 05/08/2023 Findings: Shotty mediastinal lymph nodes are unchanged. There is no filling defect in the pulmonary arterial tr ee to suggest pulmonary embolus. There is no evidence of aortic dissection or aneurysm. No pericardia l effusion. Moderate bilateral pleural effusions are present. Probable suture line at the right lung apex is unchanged. Stable 1.7 cm irregular right apical pulmon gurjit nodule (axial image 31). There is new area of dense consolidation in the right upper lobe abuttin g the mediastinum, and extending towards the right hilum, measuring approximately 3.6 x 4.1 cm in tra nsverse dimensions (axial image 45 for example). There is patchy interstitial thickening peripheral t o this area of consolidation. Stable smooth 5 mm pleural-based nodule at the right middle lobe. Moder ate to advanced upper lobe emphysema present. Images through the upper abdomen reveal no abnormalities. Impression: New area of dense consolidation in the right upper lobe abutting the mediastinum extending towards th e right hilum, as detailed above, with patchy interstitial thickening peripheral to this lesion. Give n rapid interval development of a lesion of the size since 05/08/2023, this is most compatible with eit her pneumonia, or possibly postradiation change if there is appropriate treatment history. Correlate clinically. Stable 1.7 cm irregular right apical pulmonary nodule. Stable additional probable suture line or post operative change the right lung apex. Moderate bilateral pleural effusions. Moderate to advanced bilateral upper lobe emphysema. Reviewed, dictated and finalized at location M. Impression: New area of dense consolidation in the right upper lobe abutting the mediastinu m extending towards the right hilum, as detailed above, with patchy interstitia l thickening peripheral to this lesion. Given rapid interval development of a l esion of the size since 05/08/2023, this is most compatible with either pneumonia , or possibly postradiation change if there is appropriate treatment history. C orrelate clinically. Stable 1.7 cm irregular right apical pulmonary nodule. Stable additional probab le suture line or postoperative change the right lung apex. Moderate bilateral pleural effusions. Moderate to advanced bilateral upper lobe emphysema.
== END 2023-06-23 08:38 | disposition home or self-care (01) ==
LOC: ANHIMG 08:40
PROVIDERS: PCP Internal Medicine; Visit Provider Internal Medicine Hematology & Oncology
DX: C34.90 Malignant neoplasm of unspecified part of unspecified bronchus or lung (principal); R91.1 Solitary pulmonary nodule; J90 Pleural effusion, not elsewhere classified; J43.9 Emphysema, unspecified
CPT/HCPCS: 71260; Q9967

== ENCOUNTER 2023-06-25 08:19 | Inpatient (IN) | payer MEDICARE, SELFPAY ==
[2023-06-25] VITALS (25 sets, daily range): BP systolic 114–143; BP diastolic 58–74; PULSE 98–121; RESP 16–28; TEMP 36.6–37.3; O2SAT 86–100; BMI 29.2
--- NOTE | ~2023-06-25 | XR_ITS ---
EXAMINATION: XR chest 1V portable DATE: 06/26/2023 06:59 INDICATION: Lung infiltrates. TECHNIQUE: A single frontal view of the chest was obtained on 2 radiographs. COMPARISON: Chest 2 views 05/08/2023, chest CT 06/25/2023 FINDINGS: There are airspace opacities in right upper lobe. There is a diffuse interstitial pattern i n the lungs. There are small pleural effusions. No pneumothorax. The heart size is normal. There is a left and internal jugular port with tip at superior cavoatrial junction. Surgical clips in the right upper quadrant are likely from cholecystectomy. IMPRESSION: 1. Right upper lobe airspace opacities with worsening from 05/08/23, consistent with radiation pneumoni tis versus pneumonia. 2. Mild pulmonary edema. 3. Small pleural effusions. Reviewed, dictated and finalized at location E. IMPRESSION: 1. Right upper lobe airspace opacities with worsening from 05/08/23, consistent w ith radiation pneumonitis versus pneumonia. 2. Mild pulmonary edema. 3. Small pleural effusions.
--- NOTE | ~2023-06-25 | CT_ITS ---
EXAMINATION: CTA chest PE protocol DATE: 06/25/2023 10:44 CDT INDICATION: Hypoxia TECHNIQUE: Computed tomographic angiography (CTA) of the chest was performed with 100 mL Omnipaque-35 0 intravenous contrast. The dose-length product was 690.63 mGy-cm. Maximum intensity projection 3D-re constructions of the aorta and other arteries were constructed by the technologist on a separate work station. Automated exposure control and iterative reconstruction technique were employed. COMPARISON: CT dated 06/23/2023 FINDINGS: No large central pulmonary embolism. Evaluation of the peripheral pulmonary arteries limite d by motion artifact. Moderate pleural effusions have increased compared with prior study. Heart size normal. No significant pericardial effusion. There is a right hilar mass which is poorly circumscrib ed invading the hilum/mediastinum, consistent with known malignancy. There is emphysema. There is a 1 .8 x 1.1 cm right upper lobe nodule, consistent with malignancy until proven otherwise. Patchy ground glass opacification particularly in the right upper lobe, consistent with pneumonia. There is depende nt atelectasis. Emphysema. Upper abdomen is unremarkable. Mild thoracic spondylosis with accentuated kyphosis. IMPRESSION: 1. No large central pulmonary embolism. 2: Progression of patchy predominantly upper lobe consolidation, consistent with pneumonia. 3: Progression of moderate pleural effusions. 4: Irregular shaped right hilar and upper lobe masses, consistent with known malignancy with possible metastatic disease. Reviewed, dictated and finalized at location A. IMPRESSION: 1. No large central pulmonary embolism. 2: Progression of patchy predominantly upper lobe consolidation, consistent wit h pneumonia. 3: Progression of moderate pleural effusions. 4: Irregular shaped right hilar and upper lobe masses, consistent with known ma lignancy with possible metastatic disease.
--- NOTE | 2023-06-25 09:31 | ECG_ITS ---
SEE SCANNED COPY FOR CONFIRMED REPORT MTDD
[2023-06-25] MEDS: ALBUTEROL SULFATE NEB 2.5 MG/3 ML INH 5 MG INHALATION (09:49)
[2023-06-25] MEDS: IPRATROPIUM BR 0.02% INH SOLN 0.5 MG/2.5 ML VIAL INHALATION (09:50)
[2023-06-25 09:57] LABS: Basophils Percent Auto 0.3 % (0.2-1.2); Eosinophils Absolute Auto 0.2 K/mm3 (0-0.3); Eosinophils Percent Auto 2.5 % (0-4.4); Hematocrit 28.5 % (42.0-52.0); Hemoglobin 8.6 g/dL (14.0-18.0); Immature Granulocyte Absolute 0.04 K/mm3 (0.00-0.031); Immature Granulocyte Percent A 0.6 % (0-0.5); Lymphocytes Absolute Auto 1.25 K/mm3 (0.9-3.2); Lymphocytes Percent Auto 19.7 % (18.3-44.2); Mean Corpuscular HGB Conc 30.2 g/dl (32-36); Mean Corpuscular Hemoglobin 30.3 pg (26-34); Mean Corpuscular Volume 100.4 fl (80-100); Mean Platelet Volume 9.6 fl (7.4-10.4); Monocytes Absolute Auto 0.6 K/mm3 (0.1-0.6); Monocytes Percent Auto 8.7 % (2.6-8.5); Neutrophils Absolute Auto 4.3 K/mm3 (1.3-6.7); Neutrophils Percent Auto 68.2 % (45.5-73.1); Platelet Count Result 129 k/mm3 (150-375); Red Blood Count 2.84 M/mm3 (4.6-6.20); Red Cell Distribution Width 18.5 % (11.5-14.5); White Blood Count 6.3 K/mm3 (4.5-10.0)
[2023-06-25 10:12] LABS: Alanine Aminotransferase 19 U/L (6-50); Albumin Level 3.8 g/dL (3.5-5.1); Alkaline Phosphatase 108 U/L (38-126); Anion Gap 10 mmol/L (4-12); Aspartate Amino Transferase 42 U/L (17-59); Bilirubin,Total 0.4 mg/dL (0.2-1.3); Blood Urea Nitrogen 39 mg/dL (9-20); Calcium 9.3 mg/dL (8.4-10.2); Carbon Dioxide 20 mmol/L (22-30); Chloride 113 mmol/L (98-107); Estimated Glomerular Filt Rate 36; Glucose 44 mg/dL (65-110); Magnesium 2.3 mg/dL (1.6-2.3); Potassium 4.5 mmol/L (3.4-5.0); Sodium 143 mmol/L (137-145)
[2023-06-25 10:21] LABS: NT Pro B Type Natriuretic Pept 198 pg/mL (19.9-100); Troponin I < 0.012 ng/mL (0.000-0.034)
--- NOTE | 2023-06-25 10:23 | ED.GENADULT ---
HPI - General Adult General Chief complaint: Shortness of Breath/Dyspnea Stated complaint: pneumonia Time Seen by Provider: 06/25/23 08:57 History of Present Illness HPI narrative: Michele Watson is an 83 y/o male who presents today with reported PMHX of lung CA currently getting treatment here with immunotherapy. He states he last had a session Monday ( 6 days ago ) and since he has felt terrible with increased SOB / Fever/ he states that he has slowly been feeling better but states he has been requiring more O2 at home that he is starting to drop his O2 Sats to 88 at home. He also states that he had a routine CT of his chest 2 days ago and his daughter looked at it and is worried he is developing Pneumonia and wanted him to come get checked out. Related Data Home Medications Medication Instructions Recorded Confirmed citalopram 20 mg tablet 20 mg PO DAILY 09/06/22 06/25/23 glimepiride 4 mg tablet 4 mg PO BID 09/06/22 06/25/23 lisinopril 20 mg tablet 20 mg PO DAILY 09/06/22 06/25/23 lorazepam 0.5 mg tablet 0.5 mg PO TID 09/06/22 06/25/23 metformin 1,000 mg tablet 1,000 mg PO BID 09/06/22 06/25/23 rosuvastatin 20 mg tablet 20 mg PO DAILY 09/06/22 06/25/23 insulin degludec 100 unit/mL (3 15 unit subcut HS 10/24/22 06/25/23 mL) subcutaneous pen (Tresiba FlexTouch U-100 insulin) ferrous sulfate 325 mg (65 mg 325 mg PO DAILY 04/17/23 06/25/23 iron) tablet mecobalamin (vitamin B12) 1,000 1,000 mcg PO DAILY 04/17/23 06/25/23 mcg chewable tablet (B12 Active) Allergies Allergy/AdvReac Type Severity Reaction Status Date / Time codeine Allergy heartache Verified 05/08/23 12:07 niacin AdvReac Flushing Verified 05/08/23 12:07 Review of Systems Review of Systems: CONSTITUTIONAL: + fever, chills off and on since Monday EYES: Denies visual changes, redness, or discharge. ENT: Denies rhinorrhea, congestion, sore throat, or otalgia. CARDIOVASCULAR: Denies chest pain, palpitations, or edema. RESPIRATORY: Reports cough and increased SOB over the past few days. GASTROINTESTINAL: Denies abdominal pain, nausea, vomiting, or diarrhea. GENITOURINARY: Denies dysuria or hematuria. SKIN: Denies rash or itching. MUSCULOSKELETAL: Denies back pain, joint pain, or myalgia. NEUROLOGIC: Denies headache, numbness, dizziness, or weakness. PSYCHIATRIC: Denies anxiety or depression. [facility] Past Medical History Medical History Acute renal insufficiency Chronic anemia Colon cancer (2014) Hyperlipidemia Hypertension Non-small cell lung cancer (09/2022) Arising in the right lung status post chemo radiation, currently on immunotherapy. Obstructive sleep apnea Thrombocytopenia Tobacco abuse Type 2 diabetes mellitus Surgical History Surgical History History of bilateral cataract extraction History of cholecystectomy (2002) History of colon resection (2014) For colon cancer. History of skin graft Family History Family History Other Unknown family medical history Social History Social History Social History: Surrogate medical decision maker: Mallorie Watson, spouse. Code status: Full code. Smoking packs per day: 1.5 Smoking cigarettes per day: 30.0 Smoking status: Former smoker Tobacco type: cigarettes Alcohol intake: never Substance use: never Substance use type: does not use Do You Feel Safe in your Home?: Yes Lack of Transportation: No Lack of Food: Never True Current Housing: I Have Housing Concerned About Future Housing: No Difficulty Paying Gas/Electric Bills: No Difficulty Paying for Meds: No Currently Unemployed: No Education: High School Diploma/GED Difficulty w/ Childcare or Family Care: No Living arrangements: with family Occupation/Education: retired [employer]
[2023-06-25] MEDS: GLUCOSE ORAL GEL 15 GM OF GLUCSE IN 37.5 GM TUBE PO (10:29)
[2023-06-25 10:35] LABS: Influenza A QL RT-PCR Negative (Negative); Influenza B QL RT-PCR Negative (Negative); RSV RNA, RT-PCR Negative (Negative); SARS-CoV-2 RNA PCR Negative (Negative)
[2023-06-25 11:01] LABS: Glucose Point of Care 53 mg/dl (65-105)
[2023-06-25] MEDS: DOXYCYCLINE 100 MG/NS 100 ML 100 MG/100 ML BAG IVPB (13:22)
[2023-06-25 13:39] LABS: Glucose Point of Care 77 mg/dl (65-105)
--- NOTE | 2023-06-25 13:55 | PC.NURSE ---
Blood cultures ordered after abx administered
--- NOTE | 2023-06-25 14:13 | PC.NURSE ---
desat to 82-86% while sleeping. O2 2l/NC applied for support
--- NOTE | 2023-06-25 15:25 | ADMGEN ---
This patient, Michele Watson, was admitted to 3 [facility] Surg Room 314-01 @ 3405. Patient/family oriented to hospital policies and general routines including ID bracelet, bed and alarms, visiting hours, pain management, procedures, bathroom and other care routines, personal items, smoking policy, room service/diet, and visiting hours. Information on how to activate the Rapid Response Team has been discussed. Patient/Family are encouraged to report perceived risks to care and to ask questions if they do not understand what they are told or what they should do.
[2023-06-25 16:21] LABS: Procalcitonin 0.3 ng/mL
[2023-06-25 16:36] LABS: Glucose Point of Care 253 mg/dl (65-105)
--- NOTE | 2023-06-25 20:18 | PM.IMHP ---
H&P: HPI History of Present Illness Date/Time: 06/25/23 20:18 Chief Complaint: abnormal finding Narrative: This is an 83-year-old male with past medical history significant for lung cancer, in remission, patient underwent radiation and chemotherapy, insulin-dependent diabetes mellitus, obstructive sleep apnea on CPAP, tobacco dependence, chronic anemia. patient presents to the emergency room after follow-up CT scan of the chest showed infiltrate. Patient has had chills however denies any cough, sputum production, has had good appetite. Patient is been admitted for further evaluation management and treatment. INDICATION: Hypoxia TECHNIQUE: Computed tomographic angiography (CTA) of the chest was performed with 100 mL Omnipaque-350 intravenous contrast. The dose-length product was 690.63 mGy-cm. Maximum intensity projection 3D-reconstructions of the aorta and other arteries were constructed by the technologist on a separate workstation. Automated exposure control and iterative reconstruction technique were employed. COMPARISON: CT dated 06/23/2023 FINDINGS: No large central pulmonary embolism. Evaluation of the peripheral pulmonary arteries limited by motion artifact. Moderate pleural effusions have increased compared with prior study. Heart size normal. No significant pericardial effusion. There is a right hilar mass which is poorly circumscribed invading the hilum/mediastinum, consistent with known malignancy. There is emphysema. There is a 1.8 x 1.1 cm right upper lobe nodule, consistent with malignancy until proven otherwise. Patchy groundglass opacification particularly in the right upper lobe, consistent with pneumonia. There is dependent atelectasis. Emphysema. Upper abdomen is unremarkable. Mild thoracic spondylosis with accentuated kyphosis. IMPRESSION: 1. No large central pulmonary embolism. 2: Progression of patchy predominantly upper lobe consolidation, consistent with pneumonia. 3:? Progression of moderate pleural effusions. 4: Irregular shaped right hilar and upper lobe masses, consistent with known malignancy with possible metastatic disease. Clinical Indication: Lung cancer CT Scan of the Chest with Contrast: Technique: Contiguous sections were acquired throughout the chest after intravenous administration of 75 cc of Omnipaque 350. Dose reduction technique was used on this scan by utilizing automated exposure control and iterative reconstruction technique. The dose-length product (DLP) was 365.41 mGy-cm. COMPARISON: 05/08/2023 Findings: Shotty mediastinal lymph nodes are unchanged. There is no filling defect in the pulmonary arterial tree to suggest pulmonary embolus. There is no evidence of aortic dissection or aneurysm. No pericardial effusion. Moderate bilateral pleural effusions are present. Probable suture line at the right lung apex is unchanged. Stable 1.7 cm irregular right apical pulmonary nodule (axial image 31). There is new area of dense consolidation in the right upper lobe abutting the mediastinum, and extending towards the right hilum, measuring approximately 3.6 x 4.1 cm in transverse dimensions (axial image 45 for example). There is patchy interstitial thickening peripheral to this area of consolidation. Stable smooth 5 mm pleural-based nodule at the right middle lobe. Moderate to advanced upper lobe emphysema present. Images through the upper abdomen reveal no abnormalities. Impression: New area of dense consolidation in the right upper lobe abutting the mediastinum extending towards the right hilum, as detailed above, with patchy interstitial thickening peripheral to this lesion. Given rapid interval development of a lesion of the size since 05/08/2023, this is most compatible with either pneumonia, or possibly postradiation change if there is appropriate treatment history. Correlate clinically. Stable 1.7 cm irregular right apical pulmonary nodule. Stable additional probable suture line or postoperative ch
[2023-06-25 20:41] LABS: Glucose Point of Care 110 mg/dl (65-105)
[2023-06-26] VITALS (12 sets, daily range): BP systolic 107–118; BP diastolic 57–75; PULSE 94–111; RESP 14–20; TEMP 35.7–36.9; O2SAT 91–96; BMI 29.2
[2023-06-26] MEDS: FLUTICASONE/UMECLIDIN/VILANTER 100-62.5-25 MCG ELLIPTA 1 PUFF INHALATION (08:02)
[2023-06-26 08:05] LABS: Glucose Point of Care 69 mg/dl (65-105)
[2023-06-26 08:43] LABS: Basophils Percent Auto 0.7 % (0.2-1.2); Eosinophils Absolute Auto 0.2 K/mm3 (0-0.3); Eosinophils Percent Auto 3.6 % (0-4.4); Hematocrit 27.9 % (42.0-52.0); Hemoglobin 8.4 g/dL (14.0-18.0); Immature Granulocyte Absolute 0.05 K/mm3 (0.00-0.031); Immature Granulocyte Percent A 1.1 % (0-0.5); Lymphocytes Absolute Auto 0.85 K/mm3 (0.9-3.2); Lymphocytes Percent Auto 18.9 % (18.3-44.2); Mean Corpuscular HGB Conc 30.1 g/dl (32-36); Mean Corpuscular Hemoglobin 30.5 pg (26-34); Mean Corpuscular Volume 101.5 fl (80-100); Mean Platelet Volume 9.2 fl (7.4-10.4); Monocytes Absolute Auto 0.4 K/mm3 (0.1-0.6); Monocytes Percent Auto 9.1 % (2.6-8.5); Neutrophils Percent Auto 66.6 % (45.5-73.1); Platelet Count Result 121 k/mm3 (150-375); Red Blood Count 2.75 M/mm3 (4.6-6.20); Red Cell Distribution Width 18.6 % (11.5-14.5); White Blood Count 4.5 K/mm3 (4.5-10.0)
[2023-06-26 09:01] LABS: Alanine Aminotransferase 21 U/L (6-50); Albumin Level 3.8 g/dL (3.5-5.1); Alkaline Phosphatase 108 U/L (38-126); Anion Gap 8 mmol/L (4-12); Aspartate Amino Transferase 34 U/L (17-59); Bilirubin,Total 0.5 mg/dL (0.2-1.3); Blood Urea Nitrogen 30 mg/dL (9-20); Calcium 9.5 mg/dL (8.4-10.2); Carbon Dioxide 24 mmol/L (22-30); Chloride 112 mmol/L (98-107); Estimated CRCL calculation 32 ml/min; Estimated Glomerular Filt Rate 42; Glucose 104 mg/dL (65-110); Potassium 4.8 mmol/L (3.4-5.0); Sodium 144 mmol/L (137-145)
[2023-06-26] MEDS: LORazepam (*CRX) 0.5 MG TABLET PO ×2 (09:14→21:13)
[2023-06-26] MEDS: ROSUVASTATIN 10 MG TABLET 20 MG PO (09:14)
[2023-06-26] MEDS: FERROUS SULFATE 325 MG TABLET DR BY MOUTH (09:14)
--- NOTE | 2023-06-26 09:22 | PM.IMPN ---
Progress Note: A&P Assessment and Plan (1) Pneumonia: Qualifiers: Laterality: right Lung location: middle lobe of lung Pneumonia type: due to unspecified organism Qualified Code(s): J18.9 - Pneumonia, unspecified organism Code(s): J18.9 - Pneumonia, unspecified organism Status: Acute Assessment and Plan: CXR: 1. Right upper lobe airspace opacities with worsening from 05/08/23, consistent with radiation pneumonitis versus pneumonia.2. Mild pulmonary edema.3. Small pleural effusions. CTA chest: 1. No large central pulmonary embolism.2: Progression of patchy predominantly upper lobe consolidation, consistent with pneumonia.3:? Progression of moderate pleural effusions.4: Irregular shaped right hilar and upper lobe masses, consistent with known malignancy with possible metastatic disease. - started on CAP tx: azithromycin ceftriaxone on 06/25 - Viral PCR: negative for Flu/COVID/RSV - MRSA pending - supplemental O2 requirement 2L - supportive treatment tyl and ibu prn nebs prn tesslon perles prn - trend labs (2) Type 2 diabetes mellitus: Code(s): E11.9 - Type 2 diabetes mellitus without complications Status: Acute Assessment and Plan: - hypoglycemia protocol - POC blood glucose ACHS - home medication - insulin, metformin and glimepiride - correct regimen ordered - low dose TIDWM and HS - A1C 02/01/24: 6.2 (3) Non-small cell lung cancer: Onset Date: 09/2022 Code(s): C34.90 - Malignant neoplasm of unspecified part of unspecified bronchus or lung Status: Acute Assessment and Plan: Clinical stage III non-small cell lung adenocarcinoma arising from the right lung diagnosed in September 2022 status post chemoradiation therapy completed in December 2022 and currently on immunotherapy - Oncologists: Dr. Madison - CTA chest: Irregular shaped right hilar and upper lobe masses, consistent with known malignancy with possible metastatic disease. (4) Obstructive sleep apnea: Code(s): G47.33 - Obstructive sleep apnea (adult) (pediatric) Status: Acute Assessment and Plan: Uses CPAP. (5) Acute kidney injury: Code(s): N17.9 - Acute kidney failure, unspecified Status: Acute Assessment and Plan: Likely prerenal. BUN/Cr 30/1.60 today. Holding lisinopril at this time. Blood pressures remain stable. IV fluids. - Monitor (6) COPD (chronic obstructive pulmonary disease): Code(s): J44.9 - Chronic obstructive pulmonary disease, unspecified Status: Acute Assessment and Plan: In no acute exacerbation. Time Spent With Patient Time with patient: 25 - 35 minutes Subjective Date/time seen: 06/26/23 09:22 Interval history: 83-year-old male smoker with history of clinical stage III non-small cell lung adenocarcinoma arising from the right lung diagnosed in September 2022 status post chemoradiation therapy completed in December 2022, chronic obstructive pulmonary disease, insulin-dependent diabetes, ROBIN on CPAP, hypertension, and hyperlipidemia?presents to hospital for follow up after CT scan of the chest revealed infiltrate. Chest CTA 06/25 revealed Progression of patchy predominantly upper lobe consolidation, consistent with pneumonia.Progression of moderate pleural effusions. Irregular shaped right hilar and upper lobe masses, consistent with known malignancy with possible metastatic disease. Patient is pleasant lying in bed. He continues to endorse mild shortness of breath and remains on 2L NC. He states that in the past week he has needed his supplemental oxygen more and more. He monitors his oxygen saturation at home and states that throughout the day it is dropping into the 80s without O2 supplementation. Prior to this he was using a CPAP at night and no supplemental O2 throughout the day. He was recently on immunotherapy for his known NSCLC, with his last dose being a week and a half ago. He states he does not want to continue this immuno
[2023-06-26] MEDS: ALBUTEROL SULFATE NEB 2.5 MG/3 ML INH INHALATION (09:26)
[2023-06-26 11:20] LABS: Glucose Point of Care 218 mg/dl (65-105)
[2023-06-26] MEDS: SODIUM CHLORIDE 0.9% IV 1,000 ML 100 ML IV CONT (11:30)
[2023-06-26] MEDS: AZITHROMYCIN 500 MG/NS 250 ML 500 MG/250 ML BAG 250 MG IVPB (11:31)
--- NOTE | 2023-06-26 15:00 | PM.IMPN ---
Subjective Date/time seen: 06/26/23 15:00 Review of Systems Review of Systems: All systems reviewed & are unremarkable except as noted in HPI and below Exam Narrative: AF General: well nourished, well-developed male in no acute respiratory distress who is nontoxic appearing, lying semi recumbent in bed. HEENT: Normocephalic. Atraumatic. Pupils equal round reactive to light. Extraocular movement intact. Sclera clear and anicteric. Nares patent. No oral lesions. Moist mucous membranes. Tongue is midline. Palate jose symmetrically. No facial asymmetry. Neck: Neck was supple. No dominant adenopathy, thyromegaly or masses. 2+ carotid upstrokes without bruits. Chest: Lungs are clear to auscultation bilaterlly. No wheezes or crackles. CV: Heart was regular rate and rhythm. S1/S2. No murmurs, gallops, or rubs. Abd: Abdomen was soft. Nontender. Nondistended. Postive bowel sounds. No organomegaly or masses. Ext: No clubbing, cyanosis, or edema. 2+ DP pulses bilaterally. Neuro: Patient is alert and oriented x4. Strenth is 5/5 in both upper and lower extremities. Cranial nerves 2-12 are intact. Speech is clear. Psych: Normal nood and affect. Patient is pleasant and cooperative. Skin: Warm and dry. No rashes noted. Objective Data Vital Signs Vital Signs: Vital Signs - 24 hr 06/25/23 15:25 06/25/23 16:49 06/25/23 21:02 Temperature 98.7 F Pulse Rate 109 H 115 H Respiratory Rate 22 H Blood Pressure 143/63 H Pulse Oximetry 91 96 92 Oxygen Delivery Nasal Cannula CPAP Oxygen Flow Rate 2 Fraction of Inspired Oxygen 06/25/23 21:03 06/25/23 20:51 06/25/23 20:00 Temperature 99.1 F Pulse Rate 113 H 115 H 113 H Respiratory Rate 24 H 24 H Blood Pressure 126/65 Pulse Oximetry 91 92 91 Oxygen Delivery Nasal Cannula Nasal Cannula Oxygen Flow Rate 2 2 Fraction of Inspired Oxygen 28 28 06/25/23 20:00 06/26/23 02:57 06/26/23 00:00 Temperature Pulse Rate 111 H 111 H 106 H Respiratory Rate Blood Pressure Pulse Oximetry 95 Oxygen Delivery CPAP Oxygen Flow Rate Fraction of Inspired Oxygen 06/26/23 04:00 06/26/23 05:59 06/26/23 08:02 Temperature 97.7 F Pulse Rate 104 H 97 94 Respiratory Rate 20 16 Blood Pressure 118/66 Pulse Oximetry 96 91 Oxygen Delivery Nasal Cannula Oxygen Flow Rate 2 Fraction of Inspired Oxygen 06/26/23 09:28 06/26/23 09:35 06/26/23 08:00 Temperature Pulse Rate 99 105 H Respiratory Rate 18 18 Blood Pressure Pulse Oximetry 96 Oxygen Delivery Nasal Cannula Oxygen Flow Rate 2 Fraction of Inspired Oxygen 06/26/23 14:00 Temperature 96.2 F L Pulse Rate 105 H Respiratory Rate 14 Blood Pressure 107/75 Pulse Oximetry 93 Oxygen Delivery Oxygen Flow Rate Fraction of Inspired Oxygen Intake/Output Intake/Output: Intake & Output 06/23/23 06/24/23 06/25/23 06/26/23 23:59 23:59 23:59 23:59 Intake Total 150 740 Output Total 1175 Balance 150 -435 Meds/Results Medications: Active Medications Generic Name Dose Route Start Last Admin Trade Name Freq PRN Reason Stop Dose Admin Albuterol 2.5 mg 06/25/23 21:23 06/26/23 09:26 Albuterol Sulfate Neb 2.5 Mg/3 Ml Inh INHALATION 2.5 mg Q6HRT PRN Administration wheezing Dextrose 12.5 gm 06/25/23 17:37 Dextrose 50% 25 Gm/50 Ml Syringe IV PUSH PRN PRN Hypoglycemia Protocol Ferrous Sulfate 325 mg 06/26/23 09:00 06/26/23 09:14 Ferrous Sulfate [address] BY MOUTH 325 mg DAILY JERROD Administration Fluticasone/Umeclidinium/Vilanterol 1 puff 06/26/23 08:00 06/26/23 08:02 Fluticasone/Umeclidin/Vilanter 100-62.5-25 Mcg Ellipta INHALATION 1 puff DAILYRT JERROD Administration Glucagon 1 mg 06/25/23 17:37 Glucagon For Inj 1 Mg Vial IM PRN PRN Hypoglycemia Protocol Glucose 15 gm 06/25/23 10:22 06/25/23 10:29 Glucose Oral Gel 15 Gm Of Glucse In 37.5 Gm Tube PO 15 gm PRN PRN Admi
[2023-06-26 16:33] LABS: Glucose Point of Care 142 mg/dl (65-105)
[2023-06-26 20:06] LABS: MRSA (PCR) NOT DETECTED (NOT DETECTE)
[2023-06-26 20:38] LABS: Glucose Point of Care 176 mg/dl (65-105)
[2023-06-26] MEDS: INSULIN GLARGINE (*BKC) 100 UNITS/ML 12 UNITS SUB-Q (21:13)
[2023-06-27] VITALS (12 sets, daily range): BP systolic 129–145; BP diastolic 62–75; PULSE 79–117; RESP 14–20; TEMP 36.2–36.8; O2SAT 90–95
[2023-06-27] MEDS: ACETAMINOPHEN 325 MG TABLET 650 MG PO ×2 (04:36→20:51)
[2023-06-27] MEDS: SODIUM CHLORIDE 0.9% IV 1,000 ML 100 ML IV CONT (04:50)
[2023-06-27 06:31] LABS: Basophils Percent Auto 0.7 % (0.2-1.2); Eosinophils Absolute Auto 0.1 K/mm3 (0-0.3); Eosinophils Percent Auto 2.5 % (0-4.4); Hematocrit 27.1 % (42.0-52.0); Hemoglobin 8.2 g/dL (14.0-18.0); Immature Granulocyte Absolute 0.06 K/mm3 (0.00-0.031); Immature Granulocyte Percent A 1.4 % (0-0.5); Lymphocytes Absolute Auto 0.65 K/mm3 (0.9-3.2); Lymphocytes Percent Auto 14.9 % (18.3-44.2); Mean Corpuscular HGB Conc 30.3 g/dl (32-36); Mean Corpuscular Volume 99.3 fl (80-100); Mean Platelet Volume 9.7 fl (7.4-10.4); Monocytes Absolute Auto 0.4 K/mm3 (0.1-0.6); Monocytes Percent Auto 8.7 % (2.6-8.5); Neutrophils Absolute Auto 3.1 K/mm3 (1.3-6.7); Neutrophils Percent Auto 71.8 % (45.5-73.1); Platelet Count Result 128 k/mm3 (150-375); Red Blood Count 2.73 M/mm3 (4.6-6.20); Red Cell Distribution Width 18.2 % (11.5-14.5); White Blood Count 4.4 K/mm3 (4.5-10.0)
[2023-06-27 06:47] LABS: Alanine Aminotransferase 22 U/L (6-50); Albumin Level 3.7 g/dL (3.5-5.1); Alkaline Phosphatase 105 U/L (38-126); Anion Gap 10 mmol/L (4-12); Aspartate Amino Transferase 32 U/L (17-59); Bilirubin,Total 0.5 mg/dL (0.2-1.3); Blood Urea Nitrogen 30 mg/dL (9-20); Calcium 9.2 mg/dL (8.4-10.2); Carbon Dioxide 20 mmol/L (22-30); Chloride 112 mmol/L (98-107); Estimated CRCL calculation 36 ml/min; Estimated Glomerular Filt Rate 49; Glucose 190 mg/dL (65-110); Potassium 4.6 mmol/L (3.4-5.0); Sodium 142 mmol/L (137-145)
[2023-06-27 08:09] LABS: Glucose Point of Care 178 mg/dl (65-105)
[2023-06-27] MEDS: FLUTICASONE/UMECLIDIN/VILANTER 100-62.5-25 MCG ELLIPTA 1 PUFF INHALATION (08:31)
[2023-06-27] MEDS: ROSUVASTATIN 10 MG TABLET 20 MG PO (09:19)
[2023-06-27] MEDS: FERROUS SULFATE 325 MG TABLET DR BY MOUTH (09:19)
[2023-06-27] MEDS: METOPROLOL TARTRATE 12.5 MG TABLET PO ×2 (09:20→20:14)
[2023-06-27] MEDS: AZITHROMYCIN 500 MG/NS 250 ML 500 MG/250 ML BAG 250 MG IVPB (09:23)
[2023-06-27 10:21] LABS: Appearance Urine Clear (Clear); Bacteria Urine None Seen /hpf; Bilirubin Urine Negative (Negative); Blood Urine Non-Hemolyzed Trace (Negative); Color Urine Yellow (Yellow); Glucose Urine UA Trace mg/dL (Negative); Ketones Urine Negative (Negative); Leukocyte Esterase Ur Negative LEU/UL (Negative); Nitrate Urine Negative (Negative); Non Pathogenic Casts 0-2; Protein Urine Trace mg/dL (Negative); RBC Urine 0-2 /hpf (0-2); Specific Grav Ur 1.017 (1.001-1.035); Squamous Epithelial Cell Urine None Seen /hpf (Few); Urobilinogen Urine 0.2 mg/dL (<2.0); WBC Urine 0-5 /hpf (0-3); pH Urine 5.5 (5.0-9.0)
[2023-06-27 10:29] LABS: Add Urine Microscopic? YES
[2023-06-27 12:03] LABS: Glucose Point of Care 259 mg/dl (65-105)
[2023-06-27] MEDS: INSULIN ASPART (*BKC) 100 UNITS/ML SUB-Q (12:40)
--- NOTE | 2023-06-27 14:26 | PM.IMPN ---
Progress Note: A&P Assessment and Plan (1) Pneumonia: Qualifiers: Laterality: right Lung location: middle lobe of lung Pneumonia type: due to unspecified organism Qualified Code(s): J18.9 - Pneumonia, unspecified organism Code(s): J18.9 - Pneumonia, unspecified organism Status: Acute Assessment and Plan: CXR: 1. Right upper lobe airspace opacities with worsening from 05/08/23, consistent with radiation pneumonitis versus pneumonia.2. Mild pulmonary edema.3. Small pleural effusions. CTA chest: 1. No large central pulmonary embolism.2: Progression of patchy predominantly upper lobe consolidation, consistent with pneumonia.3:? Progression of moderate pleural effusions.4: Irregular shaped right hilar and upper lobe masses, consistent with known malignancy with possible metastatic disease. - started on CAP tx: azithromycin ceftriaxone on 06/25 - Viral PCR: negative for Flu/COVID/RSV - MRSA negative - supplemental O2 requirement 2L - supportive treatment tyl and ibu prn nebs prn tesslon perles prn - trend labs (2) Type 2 diabetes mellitus: Code(s): E11.9 - Type 2 diabetes mellitus without complications Status: Acute Assessment and Plan: - hypoglycemia protocol - POC blood glucose ACHS - home medication - insulin, metformin and glimepiride - correct regimen ordered - low dose TIDWM and HS - A1C 02/01/24: 6.2 (3) Non-small cell lung cancer: Onset Date: 09/2022 Code(s): C34.90 - Malignant neoplasm of unspecified part of unspecified bronchus or lung Status: Acute Assessment and Plan: Clinical stage III non-small cell lung adenocarcinoma arising from the right lung diagnosed in September 2022 status post chemoradiation therapy completed in December 2022 and currently on immunotherapy - Oncologists: Dr. Madison - CTA chest: Irregular shaped right hilar and upper lobe masses, consistent with known malignancy with possible metastatic disease. (4) Obstructive sleep apnea: Code(s): G47.33 - Obstructive sleep apnea (adult) (pediatric) Status: Acute Assessment and Plan: Uses CPAP. (5) Acute kidney injury: Code(s): N17.9 - Acute kidney failure, unspecified Status: Acute Assessment and Plan: Likely prerenal. BUN/Cr 30/1.40 today. Holding lisinopril at this time. Blood pressures remain stable. IV fluids. - Monitor (6) COPD (chronic obstructive pulmonary disease): Code(s): J44.9 - Chronic obstructive pulmonary disease, unspecified Status: Acute Assessment and Plan: In no acute exacerbation. (7) Hypertension: Code(s): I10 - Essential (primary) hypertension Status: Acute Assessment and Plan: Patient previously on lisinopril 20 mg daily. This was being held for patients kidney injury. Patients BP noted to be stable without lisinopril. He did however remain consistently tachycardic. Started him on metoprolol 12.5 BID. Discontinued the lisinopril. Subjective Date/time seen: 06/27/23 14:26 Interval history: 83-year-old male smoker with history of clinical stage III non-small cell lung adenocarcinoma arising from the right lung diagnosed in September 2022 status post chemoradiation therapy completed in December 2022, chronic obstructive pulmonary disease, insulin-dependent diabetes, ROBIN on CPAP, hypertension, and hyperlipidemia?presents to hospital for follow up after CT scan of the chest revealed infiltrate. Chest CTA 06/25 revealed Progression of patchy predominantly upper lobe consolidation, consistent with pneumonia.Progression of moderate pleural effusions. Irregular shaped right hilar and upper lobe masses, consistent with known malignancy with possible metastatic disease. Patient is pleasant lying in bed. He continues to endorse shortness of breath and remains on 2L NC. He states he feels more short of breath than yesterday. Shortness of breath is likely related to the pneumonia on top of the NSCLC. He st
[2023-06-27 16:56] LABS: Glucose Point of Care 192 mg/dl (65-105)
[2023-06-27] MEDS: INSULIN GLARGINE (*BKC) 100 UNITS/ML 12 UNITS SUB-Q (20:14)
[2023-06-27 20:35] LABS: Glucose Point of Care 306 mg/dl (65-105)
[2023-06-28] VITALS (7 sets, daily range): BP systolic 118; BP diastolic 70; PULSE 78–145; RESP 14–20; TEMP 36.4; O2SAT 90–95
[2023-06-28 06:55] LABS: Basophils Percent Auto 0.7 % (0.2-1.2); Eosinophils Absolute Auto 0.1 K/mm3 (0-0.3); Eosinophils Percent Auto 2.7 % (0-4.4); Hematocrit 29.3 % (42.0-52.0); Hemoglobin 8.7 g/dL (14.0-18.0); Immature Granulocyte Absolute 0.07 K/mm3 (0.00-0.031); Immature Granulocyte Percent A 1.6 % (0-0.5); Lymphocytes Absolute Auto 0.99 K/mm3 (0.9-3.2); Lymphocytes Percent Auto 22.3 % (18.3-44.2); Mean Corpuscular HGB Conc 29.7 g/dl (32-36); Mean Corpuscular Hemoglobin 29.8 pg (26-34); Mean Corpuscular Volume 100.3 fl (80-100); Monocytes Absolute Auto 0.5 K/mm3 (0.1-0.6); Monocytes Percent Auto 10.2 % (2.6-8.5); Neutrophils Absolute Auto 2.8 K/mm3 (1.3-6.7); Neutrophils Percent Auto 62.5 % (45.5-73.1); Platelet Count Result 135 k/mm3 (150-375); Red Blood Count 2.92 M/mm3 (4.6-6.20); Red Cell Distribution Width 17.5 % (11.5-14.5); White Blood Count 4.4 K/mm3 (4.5-10.0)
[2023-06-28 07:05] LABS: Alanine Aminotransferase 26 U/L (6-50); Albumin Level 3.8 g/dL (3.5-5.1); Alkaline Phosphatase 99 U/L (38-126); Anion Gap 8 mmol/L (4-12); Aspartate Amino Transferase 32 U/L (17-59); Bilirubin,Total 0.4 mg/dL (0.2-1.3); Blood Urea Nitrogen 24 mg/dL (9-20); Calcium 9.4 mg/dL (8.4-10.2); Carbon Dioxide 24 mmol/L (22-30); Chloride 111 mmol/L (98-107); Estimated CRCL calculation 39 ml/min; Estimated Glomerular Filt Rate 53; Glucose 159 mg/dL (65-110); Potassium 4.8 mmol/L (3.4-5.0); Sodium 143 mmol/L (137-145)
[2023-06-28 07:56] LABS: Glucose Point of Care 168 mg/dl (65-105)
[2023-06-28] MEDS: ACETAMINOPHEN 325 MG TABLET 650 MG PO (08:00)
[2023-06-28] MEDS: FLUTICASONE/UMECLIDIN/VILANTER 100-62.5-25 MCG ELLIPTA 1 PUFF INHALATION (08:19)
[2023-06-28] MEDS: AZITHROMYCIN 500 MG/NS 250 ML 500 MG/250 ML BAG 250 MG IVPB (08:40)
[2023-06-28] MEDS: METOPROLOL TARTRATE 12.5 MG TABLET PO (08:40)
[2023-06-28] MEDS: FERROUS SULFATE 325 MG TABLET DR BY MOUTH (08:40)
--- NOTE | 2023-06-28 11:22 | PM.DS ---
DS: Admitting Diagnosis Discharge Date 06/28/23 Admitting Diagnosis Pneumonia DS: Discharge Diagnosis Discharge Diagnosis (1) Pneumonia: Qualifiers: Laterality: right Lung location: middle lobe of lung Pneumonia type: due to unspecified organism Qualified Code(s): J18.9 - Pneumonia, unspecified organism Code(s): J18.9 - Pneumonia, unspecified organism Status: Acute (2) Type 2 diabetes mellitus: Code(s): E11.9 - Type 2 diabetes mellitus without complications Status: Acute (3) Non-small cell lung cancer: Onset Date: 09/2022 Code(s): C34.90 - Malignant neoplasm of unspecified part of unspecified bronchus or lung Status: Acute (4) Obstructive sleep apnea: Code(s): G47.33 - Obstructive sleep apnea (adult) (pediatric) Status: Acute (5) Acute kidney injury: Code(s): N17.9 - Acute kidney failure, unspecified Status: Acute (6) COPD (chronic obstructive pulmonary disease): Code(s): J44.9 - Chronic obstructive pulmonary disease, unspecified Status: Acute (7) Hypertension: Code(s): I10 - Essential (primary) hypertension Status: Acute DS: Summary Hospital Course Hospital Course: This is an 83-year-old male past medical history of lung cancer in remission that underwent chemotherapy and radiation, insulin-dependent diabetes, ROBIN, tobacco dependence, and chronic anemia the present to the ED after he had a follow-up CT scan that showed a chest infiltrate. He was also found to have an KORIN. He did not have any cough, sputum production, fever and body aches or chills. He was admitted for treatment of pneumonia. CXR: 1. Right upper lobe airspace opacities with worsening from 05/08/23, consistent with radiation pneumonitis versus pneumonia.2. Mild pulmonary edema.3. Small pleural effusions. CTA chest: 1. No large central pulmonary embolism.2: Progression of patchy predominantly upper lobe consolidation, consistent with pneumonia.3:? Progression of moderate pleural effusions.4: Irregular shaped right hilar and upper lobe masses, consistent with known malignancy with possible metastatic disease. Started on CAP treatment azithromycin ceftriaxone on 06/25 . Patient did require O2 supplementation. He does wear O2 at night while at home. Patient doing well and symptoms improved through hospital stay. He was on IV fluids for KORIN and kidney function improved. Viral panel came back negative. MRSA screen negative. Patient transition to p.o. antibiotics at discharge. O2 evaluation performed. his labs and vital signs are stable and he is medically cleared for discharge at this time. Time Spent with Patient Time attestation: Total time spent providing and/or coordinating discharge services: DS: Data Data Completed and Pending Labs on day of discharge: Labs from last 24 hours 06/28/23 06/28/23 06/27/23 07:49 06:23 20:07 WBC 4.4 L RBC 2.92 L Hgb 8.7 L Hct 29.3 L MCV 100.3 H MCH 29.8 MCHC 29.7 L RDW 17.5 H Plt Count 135 L MPV 10.0 Immature Gran % (Auto) 1.6 H Neut % (Auto) 62.5 Lymph % (Auto) 22.3 Powell % (Auto) 10.2 H Eos % (Auto) 2.7 Baso % (Auto) 0.7 Lymph # (Auto) 0.99 Powell # (Auto) 0.5 Eos # (Auto) 0.1 Baso # (Auto) 0.0 Abs Immat Gran (auto) 0.07 H Absolute Neuts (auto) 2.8 Absolute Nucleated RBC 0.000 Nucleated RBC % 0.0 Sodium 143 Potassium 4.8 Chloride 111 H Carbon Dioxide 24 Anion Gap 8 BUN 24 H Creatinine 1.30 Estim Creat Clear Calc 39 Estimated GFR 53 L Glucose 159 H POC Capillary Glucose 168 H 306 H Calcium 9.4 Total Bilirubin 0.4 AST 32 ALT 26 Alkaline Phosphatase 99 Total Protein 7.0 Albumin 3.8 06/27/23 06/27/23 16:46 11:49 WBC RBC Hgb Hct MCV MCH MCHC RDW Plt Count MPV Immature Gran % (Auto) Neut % (Auto) Lymph % (Auto) Powell % (Auto)
--- NOTE | 2023-06-28 12:09 | HOMEO2EVAL ---
Evaluation was performed at [facility] Home Oxygen Evaluation RC: Home Oxygen (O2) Evaluation Start: 06/28/23 11:35 Freq: ONCE Status: Active Protocol: RPE Activity Type Activity Date Activity User E-sign Co-sign Detail Recorded Client Recorded Date Recorded By Document 06/28/23 11:50 PK [email or web address] 06/28/23 12:09 PK Document 06/28/23 11:55 PK [email or web address] 06/28/23 12:09 PK Document 06/28/23 12:05 PK [email or web address] 06/28/23 12:09 PKH 06/28/23 06/28/23 06/28/23 11:50 11:55 12:05 Home O2 Evaluation [Oxygen] -Test Phase Resting Exercise Resting -Oxygen Delivery Room Air Room Air Room Air [Pulse Oximetry] -Pulse Oximetry (90-100 %) 94 90 94 [Pulse Rate] -Pulse Rate (60-100 beats/min) 106 H 145 H 102 H [Evaluation] -Activity Tolerance Good [Exercise] -Ambulation Distance (feet) 500 -Ambulation Distance (meters) 152.39 [Charges] -Evaluation Charges O2 Evaluation by Pulmonary
--- NOTE | 2023-06-28 12:09 | PCRCNOTE ---
HOME O2 EVAL COMPLETE, NO DAY TIME REQUIREMENTS. HAS NOC O2 WITH MICHAEL
== END 2023-06-28 12:20 | disposition home or self-care (01) | DRG 194 ==
LOC: ANHED 13:20 → ANH3MEDSUR 21:36
PROVIDERS: Student in an Organized Health Care Education/Training Program; Admitting Provider Internal Medicine; Emergency Provider Nurse Practitioner Family; PCP Internal Medicine; Visit Provider Hospitalist
DX: J18.9 Pneumonia, unspecified organism (principal); C34.91 Malignant neoplasm of unspecified part of right bronchus or lung; N17.9 Acute kidney failure, unspecified; J44.0 Chronic obstructive pulmonary disease with (acute) lower respiratory infection; J90 Pleural effusion, not elsewhere classified; E11.9 Type 2 diabetes mellitus without complications; G47.33 Obstructive sleep apnea (adult) (pediatric); I10 Essential (primary) hypertension; E78.5 Hyperlipidemia, unspecified; D64.9 Anemia, unspecified; D69.6 Thrombocytopenia, unspecified; Z20.822 Contact with and (suspected) exposure to COVID-19; Z90.49 Acquired absence of other specified parts of digestive tract; Z98.42 Cataract extraction status, left eye; Z98.41 Cataract extraction status, right eye; Z87.891 Personal history of nicotine dependence
CPT/HCPCS: 36415; 71045; 71260; 71275; 80053; 81001; 82948; 83735; 83880; 84145; 84484; 85025; 87040; 87637; 87641; 93005; 94618; 94640; 96365; 96367; 99285; A9270; J0456; J0696; J1815; J7030; Q9967

== ENCOUNTER 2023-07-24 06:54 | Observation (INO) | payer MEDICARE, SELFPAY ==
[2023-07-24] VITALS (19 sets, daily range): BP systolic 100–121; BP diastolic 60–79; PULSE 85–97; RESP 16–23; TEMP 36.6–36.8; O2SAT 91–100; BMI 28.0
--- NOTE | ~2023-07-24 | XR_ITS ---
Portable chest x-ray Comparison: 07/24/2023 Clinical History: Bilateral effusions Findings: Small bilateral pleural effusions are present with minimal bibasilar pulmonary edema/atele ctasis. Left-sided Mediport in place. Cardiomediastinal silhouette is stable. Bones and soft tissues are unremarkable. Impression: Small bilateral pleural effusions with minimal bibasilar pulmonary edema/atelectasis. Left-sided Mediport. Reviewed, dictated and finalized at location . Impression: Small bilateral pleural effusions with minimal bibasilar pulmonary edema/atelec tasis. Left-sided Mediport.
--- NOTE | ~2023-07-24 | XR_ITS ---
EXAMINATION: XR_[id number]_CR DATE: 07/24/2023 12:57 INDICATION: Left pleural effusion status post thoracentesis. TECHNIQUE: Frontal and lateral views of the chest were obtained. COMPARISON: Chest 2 views 07/24/2023 FINDINGS: There are small pleural effusions. There are airspace opacities at the lung bases. There ar e mild airspace opacities in right upper lobe. No pneumothorax. The heart size is normal. There is a left internal jugular port with tip in proximal right atrium. IMPRESSION: 1. Small pleural effusions with improvement on the left. 2. Airspace opacities at the lung bases, likely atelectasis. 3. Mild airspace opacities in right upper lobe, likely malignancy and treatment changes. Reviewed, dictated and finalized at location A.
--- NOTE | ~2023-07-24 | CT_ITS ---
EXAMINATION: CTA chest PE protocol DATE: 07/24/2023 08:01 INDICATION: Chest pain radiating to back. Hypoxia. History of lung cancer. TECHNIQUE: Computed tomography angiography (CTA) of the chest was performed with 100 mL Omnipaque-350 intravenous contrast timed to evaluate the pulmonary arteries. Coronal maximum intensity projection 3D-reconstructions were created by the technologist. Automated exposure control and iterative reconst ruction technique were employed. Exam dose: 641.26 mGy-cm total exam DLP. COMPARISON: 07/24/2023 AP and lateral chest 06/25/2023 CTA chest FINDINGS: Irregular suprahilar right lung mass or adenopathy is again noted. There is diagnostic contrast enhancement of the pulmonary arteries and no detected pulmonary emboli. Moderate to moderately large bilateral pleural effusions with associated compressive atelectasis invo lving the lower lobes, especially on the left. Normal heart size. Trace pericardial fluid. There is calcification of the aorta and great vessels and prominent coronary artery calcification. Approximately 10 x 18 mm irregular soft tissue right upper lobe mass density, stable since 06/25/2023; consider PET/CT imaging to differentiate malignancy from scarring. Severe emphysematous changes of the lungs are noted.. Normal morphology of the adrenal glands. Status post cholecystectomy. Posterior left 10th and 11th subacute or old rib fractures. No suspicious osteolytic or osteoblastic lesions. IMPRESSION: Moderately large pleural effusions, mildly increased since June 25, 2023, with associat ed bilateral lower lobe compressive atelectasis No evidence of pulmonary embolism Severe emphysema Reviewed, dictated and finalized at Location A. Reviewed, dictated and finalized at location B. IMPRESSION: Moderately large pleural effusions, mildly increased since June 052023, with associated bilateral lower lobe compressive atelectasis No evidence of pulmonary embolism Severe emphysema
--- NOTE | ~2023-07-24 | US_ITS ---
EXAMINATION: US thoracentesis DATE: 07/24/2023 13:10 INDICATION: pleural effusion TECHNIQUE: The procedure and its risks, benefits, and alternatives were discussed with the patient. P otential risks discussed included bleeding, infection, and pneumothorax. The patient understood the r isks and agreed to proceed. The skin was prepped and draped in sterile fashion. 1% lidocaine was used for local anesthesia. Under ultrasound guidance, a 5 Fr catheter with trochar was advanced into the left pleural effusion. Fluid was aspirated. The catheter was removed, and a dressing was applied. The re were no immediate complications. FINDINGS: Ultrasound images demonstrate a left pleural effusion and the catheter within the fluid. IMPRESSION: 1. Successful ultrasound-guided thoracentesis yielding 1000 mL of venkata-colored fluid. Reviewed, dictated and finalized at location A. IMPRESSION: 1. Successful ultrasound-guided thoracentesis yielding 1000 mL of venkata-colore d fluid.
--- NOTE | ~2023-07-24 | XR_ITS ---
EXAMINATION: XR_CXR2VTHORA_CR DATE: 07/25/2023 13:42 INDICATION: Right pleural effusion status post thoracentesis. TECHNIQUE: Frontal and lateral views of the chest were obtained. COMPARISON: Chest 2 views 07/24/2023 FINDINGS: There is a small left pleural effusion. There are airspace opacities at left lung base. The re are airspace opacities in right upper lobe. A calcified right lung nodule is consistent with old g ranulomatous disease. No pneumothorax. The heart size is normal. There is a left internal jugular por t with tip in proximal right atrium. IMPRESSION: 1. Stable small left pleural effusion. 2. Airspace opacities at left lung base, likely atelectasis. 3. Mild airspace opacities in right upper lobe, likely malignancy and treatment changes. Reviewed, dictated and finalized at location A.
--- NOTE | ~2023-07-24 | US_ITS ---
EXAMINATION: US thoracentesis DATE: 07/25/2023 14:18 INDICATION: pleural effusion TECHNIQUE: The procedure and its risks, benefits, and alternatives were discussed with the patient. P otential risks discussed included bleeding, infection, and pneumothorax. The patient understood the r isks and agreed to proceed. The skin was prepped and draped in sterile fashion. 1% lidocaine was used for local anesthesia. Under ultrasound guidance, a 5 Fr catheter with trochar was advanced into the right pleural effusion. Fluid was aspirated. The catheter was removed, and a dressing was applied. Th ere were no immediate complications. FINDINGS: Ultrasound images demonstrate a right pleural effusion and the catheter within the fluid. IMPRESSION: 1. Successful ultrasound-guided thoracentesis yielding 800 mL of venkata-colored fluid. Reviewed, dictated and finalized at location A.
--- NOTE | ~2023-07-24 | XR_ITS ---
Clinical Indication: Chest pain AP and lateral views of the chest: Comparison: 06/26/2023 Findings: Left-sided Mediport in satisfactory position. Small bilateral pleural effusions are present , probable bibasilar pulmonary edema/atelectasis. Cardiomediastinal silhouette is within normal limi ts. Bones and soft tissues are unremarkable. Impression: Small bilateral pleural effusions with bibasilar pulmonary edema/atelectasis. Left-sided Mediport. Reviewed, dictated and finalized at location . Impression: Small bilateral pleural effusions with bibasilar pulmonary edema/atelectasis. Left-sided Mediport.
--- NOTE | 2023-07-24 06:55 | ECG_ITS ---
SEE SCANNED COPY FOR CONFIRMED REPORT. MTDD
[2023-07-24 07:08] LABS: Basophils Absolute Auto 0.1 K/mm3 (0.0-0.1); Basophils Percent Auto 0.7 % (0.2-1.2); Eosinophils Absolute Auto 0.1 K/mm3 (0-0.3); Eosinophils Percent Auto 1.9 % (0-4.4); Hemoglobin 9.8 g/dL (14.0-18.0); Immature Granulocyte Absolute 0.06 K/mm3 (0.00-0.031); Immature Granulocyte Percent A 0.9 % (0-0.5); Lymphocytes Absolute Auto 1.91 K/mm3 (0.9-3.2); Lymphocytes Percent Auto 27.7 % (18.3-44.2); Mean Corpuscular HGB Conc 29.7 g/dl (32-36); Mean Corpuscular Hemoglobin 30.4 pg (26-34); Mean Corpuscular Volume 102.5 fl (80-100); Mean Platelet Volume 9.5 fl (7.4-10.4); Monocytes Absolute Auto 0.7 K/mm3 (0.1-0.6); Monocytes Percent Auto 9.6 % (2.6-8.5); Neutrophils Absolute Auto 4.1 K/mm3 (1.3-6.7); Neutrophils Percent Auto 59.2 % (45.5-73.1); Platelet Count Result 145 k/mm3 (150-375); Red Blood Count 3.22 M/mm3 (4.6-6.20); Red Cell Distribution Width 19.1 % (11.5-14.5); White Blood Count 6.9 K/mm3 (4.5-10.0)
[2023-07-24] MEDS: ASPIRIN 81 MG CHEWABLE TABLET 324 MG PO (07:17)
[2023-07-24 07:27] LABS: Alanine Aminotransferase 18 U/L (6-50); Albumin Level 4.1 g/dL (3.5-5.1); Alkaline Phosphatase 92 U/L (38-126); Anion Gap 8 mmol/L (4-12); Aspartate Amino Transferase 41 U/L (17-59); Bilirubin,Total 0.5 mg/dL (0.2-1.3); Blood Urea Nitrogen 30 mg/dL (9-20); Calcium 9.1 mg/dL (8.4-10.2); Carbon Dioxide 24 mmol/L (22-30); Chloride 110 mmol/L (98-107); Estimated CRCL calculation 36 ml/min; Estimated Glomerular Filt Rate 49; Glucose 95 mg/dL (65-110); Lipase 105 U/L (23-300); Potassium 4.7 mmol/L (3.4-5.0); Sodium 142 mmol/L (137-145)
[2023-07-24 07:33] LABS: Anisocytosis 1+; Platelet Estimate Slightly Decreased (Adequate); Schistocytes None Seen
[2023-07-24 07:38] LABS: Partial Thromboplastin Time 31.5 Seconds (22.3-36.8); Troponin I < 0.012 ng/mL (0.000-0.034)
[2023-07-24 08:43] LABS: NT Pro B Type Natriuretic Pept 150 pg/mL (19.9-100)
--- NOTE | 2023-07-24 09:53 | ECG_ITS ---
SEE SCANNED COPY FOR CONFIRMED REPORT MTDD
[2023-07-24 10:32] LABS: Troponin I < 0.012 ng/mL (0.000-0.034)
--- NOTE | 2023-07-24 10:53 | ED.CHESTPAIN ---
HPI - Chest Pain General Chief Complaint: Chest Pain Stated Complaint: chest pain Time Seen by Provider: 07/24/23 07:00 History of Present Illness HPI narrative: Patient presenting with shortness of breath, and some chest tightness and pain to his left chest and back, he noticed last night that when he put his oxygen on he felt much better. This morning again was having the chest tightness so he moved the oxygen up to 4 L and felt better again. Related Data Home Medications Medication Instructions Recorded Confirmed citalopram 20 mg tablet 20 mg PO DAILY 09/06/22 07/21/23 glimepiride 4 mg tablet 4 mg PO BID 09/06/22 07/21/23 lisinopril 20 mg tablet 20 mg PO DAILY 09/06/22 07/21/23 lorazepam 0.5 mg tablet 0.5 mg PO TID 09/06/22 07/21/23 metformin 1,000 mg tablet 1,000 mg PO BID 09/06/22 07/21/23 rosuvastatin 20 mg tablet 20 mg PO DAILY 09/06/22 07/21/23 insulin degludec 100 unit/mL (3 15 unit subcut HS 10/24/22 07/21/23 mL) subcutaneous pen (Tresiba FlexTouch U-100 insulin) ferrous sulfate 325 mg (65 mg 325 mg PO DAILY 04/17/23 07/21/23 iron) tablet mecobalamin (vitamin B12) 1,000 1,000 mcg PO DAILY 04/17/23 07/21/23 mcg chewable tablet (B12 Active) Allergies Allergy/AdvReac Type Severity Reaction Status Date / Time codeine AdvReac heartache Verified 07/21/23 13:22 niacin AdvReac Flushing Verified 07/21/23 13:22 Review of Systems Review of Systems: All systems reviewed & are unremarkable except as noted in HPI and below PMFSH Past Medical History Medical History Acute renal insufficiency Chronic anemia Colon cancer (2014) Hyperlipidemia Hypertension Non-small cell lung cancer (09/2022) Arising in the right lung status post chemo radiation, currently on immunotherapy. Obstructive sleep apnea Thrombocytopenia Tobacco abuse Type 2 diabetes mellitus Surgical History Surgical History History of bilateral cataract extraction History of cholecystectomy (2002) History of colon resection (2015) For colon cancer. History of skin graft Family History Family History Other Unknown family medical history Social History Social History Social History: Surrogate medical decision maker: Mallorie Watson, spouse. Code status: Full code. Smoking packs per day: 1.5 Smoking cigarettes per day: 30.0 Years smoked: 65 Smoking pack-years: 97.50 Smoking status: Current some day smoker Tobacco type: cigarettes Second hand tobacco smoke exposure: Yes Alcohol intake: former Substance use: never Substance use type: does not use Do You Feel Safe in your Home?: Yes Lack of Transportation: No Lack of Food: Never True Current Housing: I Have Housing Concerned About Future Housing: No Difficulty Paying Gas/Electric Bills: No Difficulty Paying for Meds: No Currently Unemployed: No Education: High School Diploma/GED Difficulty w/ Childcare or Family Care: No Living arrangements: with family Occupation/Education: retired Spiritual care concerns: No Exam Narrative: EXAMINATION OF ORGAN SYSTEMS/BODY AREAS: Constitutional: Vital signs per nursing GENERAL:[No acute distress, non-toxic appearing.] HEAD: Normal with no signs of head trauma. EYES: EOMI, conjunctiva normal ENT: Hearing grossly intact LUNGS: Slightly dyspneic; diminished breath sounds bilaterally without wheezing HEART: [Regular rate and rhythm] ABD: [Soft], [nontender to palpation] EXT: Normal range of motion SKIN: [No rashes or lesions.] NEURO: [Alert and oriented x 3. No gross focal sensory or strength deficits.] PSYCH: Normal affect Course Vital Signs Vital signs: Vital Signs Pulse Rate 94 07/24/23 06:58 Respiratory Rate 20 07/24/23 06:58 Blood Pressure 108/60
[2023-07-24 12:14] LABS: Cholesterol 87 mg/dL (0-200); Lactate Dehydrogenase 170 U/L (120-246)
[2023-07-24 12:15] LABS: Amylase 85 U/L (30-110)
[2023-07-24 13:08] LABS: pH Pleural Fluid 7.456 (7.210-7.500)
--- NOTE | 2023-07-24 13:20 | PC.NURSE ---
US called and stated they were able to removed 1L of fluid off pt's Left lung and stated pt should be NPO for 2 hours. EDP made aware
[2023-07-24 13:49] LABS: Pleural fluid source Pleural fluid
[2023-07-24 13:53] LABS: Appearance Pleural Fluid Hazy (Clear); Color Pleural Fluid Yellow (Colorless); Lymphocytes Pleural Fluid 10 %; Monocytes Pleural Fluid 10 %; Neutrophils Pleural Fluid 73 % (0-25)
[2023-07-24 13:54] LABS: Macrophages Pleural Fluid 3 %; Mesothelial Cells Pleural Flui 4 %
[2023-07-24 13:59] LABS: Nucleated Cell Pleural Fluid 1027 /uL (0-1000)
[2023-07-24 14:00] LABS: RBC Pleural Fluid 4000 /uL (0-10000)
--- NOTE | 2023-07-24 15:50 | PM.CNPUL ---
Assessment and Plan Assessment and plan (1) Pleural effusion: Code(s): J90 - Pleural effusion, not elsewhere classified Status: Acute Assessment and Plan: 83-year-old with a history of diabetes, obstructive sleep apnea on CPAP, tobacco use, and lung adenocarcinoma with a right upper lobe nodule and a 4R lymph node demonstrating metastatic non-small cell carcinoma consistent with lung adenocarcinoma on 10/07/2022 (stage III, T1b, N2-3, M0) with mediastinal right hilar and left hilar adenopathy. concurrent chemo radiation and treated with Carboplatinum and Alimta x4 cycles and completed 30 fractions of radiation 11/08/22 to 12/19/22. Scheduled to have 1 year of durvalumab. note for Radiation Oncology states he completedstatus post XRT and chemotherapy finished approximately 6 months ago. Patient is on Durvalumab Status post 3 injections. With his 1st 2 injections he had fever and chills and was given dexamethasone 12 mg before his last injection on 07/19/2023 and did well. Currently patient has moderate bilateral pleural effusions, adjacent compressive atelectasis, No pulmonary embolism, no focal infiltrates, no diffuse ground-glass infiltrates, no interstitial lung disease. troponins were negative and BNP is mildly elevated at 150. He has no evidence of an infectious process. No evidence of COPD exacerbation. TSH was elevated at 10.4 on 07/19/2023 and 5.59 on 06/21/2023. Patient had a left thoracentesis with 1000 mL venkata colored fluid Removed. PH was 7.46. Red blood cells 4000, nucleated cells 1027, neutrophils 73%, lymphocytes 10%, monocytes 10%, macrophages 3%, mesothelial cells 4%. g stain with many white blood cells and no organisms seen. Plan: I will order right thoracentesis on 07/25/2023 and send full set of chemistries, microbiology studies, cell count and cytology. I will order an echocardiogram to assess LV function. I will order TSH and free T4 to assess for hypothyroidism. (2) COPD (chronic obstructive pulmonary disease): Code(s): J44.9 - Chronic obstructive pulmonary disease, unspecified Status: Acute Assessment and Plan: Patient carries a history of COPD. He has severe apical predominant panlobular emphysema on his CT scan. Blood gas on 09/06/2022 7.41/40/59. Currently tells me he wears 3 L oxygen at night. Most recent home O2 assessment on 06/28/2023 demonstrated no oxygen needed with rest or activity. Plan: I see no evidence of COPD exacerbation, pneumonia or bronchitis. At this time I will continue patient's home trelegy 100. Currently is on 1 L nasal cannula saturations 95%. (3) Obstructive sleep apnea: Code(s): G47.33 - Obstructive sleep apnea (adult) (pediatric) Status: Acute Assessment and Plan: 09/21/22: SLEEP: he uses CPAP at home, is not on supplemental O2. This is his second CPAP machine which is about 5 years old.? Bedtime is midnight, he wakes about 6-7 in the morning, is not refreshed.? He has dreams.? He wakes during the night to urinate.? He takes a nap around noon every day, a nap last about 2 hours.? He uses CPAP with his nap.? He does not have sleep paralysis or nightmares.? He generally does not have aching or uncomfortable feelings in his legs during the night time before sleep and in general he does not kick. 02/06/2023: SLEEP: He has an SD card, he is compliant.? At the last 90 days he used it greater than 4 hours on 86/90 days, average 8.5 hours, CPAP 12, AHI is 4.1, 95th percentile air leak 26 liters/minute. He goes to bed about midnight, wakes up around 9 in the morning.? He tells me all the humidity in the chamber is gone when he wakes up.? He wants to set the humidity lower so the water in the reservoir will last longer.? he takes a nap in the afternoon lasting an hour or 2.? He uses CPAP with the nap. Plan: Patient tells me his daughter will bring his home CPAP machine in. Will continue CPAP 12 tonight With 3 L
--- NOTE | 2023-07-24 16:08 | PC.NURSE ---
This patient, Michele Watson, was admitted to [facility] Surg Room 324-02. Patient/family oriented to hospital policies and general routines including ID bracelet, bed and alarms, visiting hours, pain management, procedures, bathroom and other care routines, personal items, smoking policy, room service/diet, and visiting hours. Information on how to activate the Rapid Response Team has been discussed. Patient/Family are encouraged to report perceived risks to care and to ask questions if they do not understand what they are told or what they should do.
--- NOTE | 2023-07-24 16:45 | PM.IMHP ---
H&P: HPI History of Present Illness Date/Time: 07/24/23 16:45 Chief Complaint: Chest tightness and shortness of breath. Narrative: This is a very pleasant 83-year-old male smoker with history of clinical stage III non-small cell lung adenocarcinoma arising from the right lung diagnosed in September 2022 status post chemoradiation which was completed in December 2022 currently on immunotherapy, chronic obstructive pulmonary disease, insulin-dependent diabetes, hypertension, and hyperlipidemia who presented to the emergency department for evaluation of shortness of breath and chest tightness. The patient provides the following history. He is known to myself and the hospitalist service from previous admissions with his most recent admission being 06/25/2023 in which he was admitted acute kidney injury and pneumonia. Renal function improved with IV fluid and he did well on antibiotics. He admits that he was feeling a bit short of breath on discharge he has had progressive dyspnea on lesser and lesser exertion since that time. Three days ago he developed left-sided pleuritic chest pain and his shortness of breath has worsened. In fact he has been wearing his oxygen at 4 L for several days not longer when typically he only uses it at nighttime. He denies fever, chills, sweats, sinus congestion, sore throat, cough, exertional chest pain, syncope, near syncope, nausea, vomiting, edema, and calf pain In the ED: He seemed to be in distress on arrival and was placed on BiPAP. He has been afebrile since arrival with stable blood pressures. Labs were significant for a hemoglobin of 9.8, BUN 30, creatinine 1.40, proBNP 150, troponin less than 0.012. EKG showed sinus rhythm with some nonspecific ST-T changes. Chest CTA showed moderately large pleural effusions which are mildly increased since June 25, 2023 with associated bilateral lower lobe atelectasis, severe emphysema, no evidence of pulmonary embolism. Left-sided thoracentesis per Interventional radiologist yielded 1000 mL of venkata colored fluid and that has been sent for diagnostic testing. He has been weaned from BiPAP and is now on nasal cannula with much improvement. At the time my evaluation he is resting comfortably and has no complaints. He is hopeful to be discharged in the morning. Review of Systems Review of Systems: 12 systems were reviewed and are negative except for as per HPI. [facility] Past Medical History Medical History Chronic anemia Chronic kidney disease, stage 3 Chronic obstructive pulmonary disease Chronic respiratory failure with hypoxia Colon cancer (2014) Hyperlipidemia Hypertension Non-small cell lung cancer (09/2022) Arising in the right lung status post chemo radiation, currently on immunotherapy. Obstructive sleep apnea Thrombocytopenia Tobacco abuse Type 2 diabetes mellitus Surgical History Surgical History History of bilateral cataract extraction History of cholecystectomy (2002) History of colon resection (2014) For colon cancer. History of skin graft Family History Family History Other Unknown family medical history Social History Social History Social History: Surrogate medical decision maker: Mallorie Watson, spouse. Code status: Full code. Smoking packs per day: 0.15 Smoking cigarettes per day: 3.0 Years smoked: 64 Smoking pack-years: 9.60 Smoking status: Current every day smoker Tobacco type: cigarettes Second hand tobacco smoke exposure: Yes Alcohol intake: never Substance use: never Substance use type: does not use Do You Feel Safe in your Home?: Yes Lack of Transportation: No Lack of Food: Never True Current Housing: I Have Housing Concerned About Future Housing: No Difficulty Paying Gas/Electri
[2023-07-24 20:33] LABS: Glucose Point of Care 195 mg/dl (65-105)
[2023-07-25] VITALS (15 sets, daily range): BP systolic 112–129; BP diastolic 62–67; PULSE 68–103; RESP 16–18; TEMP 36.6–36.7; O2SAT 93–98
[2023-07-25] MEDS: METOPROLOL TARTRATE 12.5 MG TABLET PO ×2 (02:11→08:22)
[2023-07-25] MEDS: SODIUM CHLOR 3% 15 ML NEB (RESPIRATORY THERAPY) 6 ML INHALATION (04:20)
[2023-07-25 06:46] LABS: Basophils Percent Auto 0.5 % (0.2-1.2); Eosinophils Absolute Auto 0.1 K/mm3 (0-0.3); Eosinophils Percent Auto 2.9 % (0-4.4); Hematocrit 29.1 % (42.0-52.0); Hemoglobin 8.7 g/dL (14.0-18.0); Immature Granulocyte Absolute 0.05 K/mm3 (0.00-0.031); Immature Granulocyte Percent A 1.2 % (0-0.5); Lymphocytes Percent Auto 14.5 % (18.3-44.2); Mean Corpuscular HGB Conc 29.9 g/dl (32-36); Mean Corpuscular Hemoglobin 30.6 pg (26-34); Mean Corpuscular Volume 102.5 fl (80-100); Mean Platelet Volume 9.9 fl (7.4-10.4); Monocytes Absolute Auto 0.4 K/mm3 (0.1-0.6); Monocytes Percent Auto 10.4 % (2.6-8.5); Neutrophils Absolute Auto 2.9 K/mm3 (1.3-6.7); Neutrophils Percent Auto 70.5 % (45.5-73.1); Platelet Count Result 113 k/mm3 (150-375); Red Blood Count 2.84 M/mm3 (4.6-6.20); White Blood Count 4.1 K/mm3 (4.5-10.0)
[2023-07-25 06:59] LABS: Anion Gap 5 mmol/L (4-12); Blood Urea Nitrogen 30 mg/dL (9-20); Calcium 8.6 mg/dL (8.4-10.2); Carbon Dioxide 24 mmol/L (22-30); Chloride 109 mmol/L (98-107); Estimated CRCL calculation 39 ml/min; Estimated Glomerular Filt Rate 53; Glucose 139 mg/dL (65-110); Lactate Dehydrogenase 176 U/L (120-246); Magnesium 2.1 mg/dL (1.6-2.3); Potassium 4.5 mmol/L (3.4-5.0); Sodium 138 mmol/L (137-145)
[2023-07-25 07:12] LABS: Free T4 Free Thyroxine 0.73 ng/mL (0.78-2.19)
[2023-07-25 07:36] LABS: Glucose Point of Care 152 mg/dl (65-105)
[2023-07-25 07:58] LABS: Platelet Estimate Decreased (Adequate); Schistocytes None Seen
[2023-07-25 07:59] LABS: Anisocytosis 1+
[2023-07-25] MEDS: FLUTICASONE/UMECLIDIN/VILANTER 100-62.5-25 MCG ELLIPTA 1 PUFF INHALATION (08:12)
[2023-07-25] MEDS: CYANOCOBALAMIN 1,000 MCG TABLET 1000 MCG PO (08:22)
[2023-07-25] MEDS: lisinopriL 20 MG TABLET PO (08:22)
[2023-07-25] MEDS: GLIMEPIRIDE 2 MG TABLET 4 MG PO (08:23)
[2023-07-25] MEDS: CITALOPRAM HYDROBROMIDE 20 MG TABLET PO (08:23)
[2023-07-25] MEDS: FERROUS SULFATE 325 MG TABLET DR PO (08:23)
[2023-07-25] MEDS: ROSUVASTATIN 20 MG TABLET PO (08:23)
--- NOTE | 2023-07-25 08:33 | P.PNIM_ITS ---
Progress Note: A&P Assessment and Plan (1) Acute and chronic respiratory failure with hypoxia: Code(s): J96.21 - Acute and chronic respiratory failure with hypoxia Status: Acute (2) Pleural effusion: Code(s): J90 - Pleural effusion, not elsewhere classified Status: Acute (3) Non-small cell lung cancer: Onset Date: 09/2022 Code(s): C34.90 - Malignant neoplasm of unspecified part of unspecified bronchus or lung Status: Acute (4) Chronic anemia: Code(s): D64.9 - Anemia, unspecified Status: Acute (5) Chronic kidney disease, stage 3: Code(s): N18.30 - Chronic kidney disease, stage 3 unspecified Status: Acute (6) Type 2 diabetes mellitus: Code(s): E11.9 - Type 2 diabetes mellitus without complications Status: Acute (7) Chronic obstructive pulmonary disease: Code(s): J44.9 - Chronic obstructive pulmonary disease, unspecified Status: Acute Plan Acute on chronic respiratory failure with hypoxia * HX 3LNC at night/small cell lung carcinoma * HX COPD * CT Moderately large pleural effusions bilateral * Was placed on Bipap initially * Pulmonology was consulted * 07/24: Right-sided thoracentesis pending * Cytology pending * Wean oxygen as tolerated * CPAP at night Pleural Effusions * CTA bilateral moderate PE * LT sided thoracentesis 07/23 * 07/23 LT sided thoracentesis yielded 1000 mL venkata colored; PH was 7.46.? Red blood cells 4000, nucleated cells 1027, neutrophils 73%, lymphocytes 10%, monocytes 10%, macrophages 3%, mesothelial cells 4%.? g stain with many white blood cells and no organisms seen. * RT sided scheduled 07/24 * Pulmonary consulted * Cytology pending * Echo pending Iron deficiency anemia * Normocytic * Hgb stable * Resume ferrous sulfate * Transfuse PRBC if Hgb <7.0 * H&H daily Diabetes * Accu-Cheks a.c. HS * sliding scale insulin * hold oral diabetic medications * resume patient's home long-acting * Diabetic diet * consult to dietitian * Optimize Trevor inhibitors and statins. * Watch for hypoglycemia/hypoglycemic protocol ordered HX HLD: Resumed Statin HX HTN: Resume lisinopril and metoprolol Code status: Full code per patient DVT prophylaxis: SCD's Stress ulcer prophylaxis: Protonix 40 daily PT/OT notes: PT/OT pending Disposition: Patient admitted with acute on chronic respiratory failure secondary to bilateral pleural effusions patient had at left-sided thoracentesis yesterday is scheduled to have RT sided thoracentesis today. Cytology was sent and pending with a consult to pulmonology. Time Spent With Patient Time with patient: 15 - 25 minutes Subjective Date/time seen: 07/25/23 08:33 Interval history: Admission: Medical Record This is a very pleasant 83-year-old male smoker with history of clinical stage III non-small cell lung adenocarcinoma arising from the right lung diagnosed in September 2022 status post chemoradiation which was completed in December 2022 currently on immunotherapy, chronic obstructive pulmonary disease, insulin- dependent diabetes, hypertension, and hyperlipidemia who presented to the emergency department for evaluation of shortness of breath and chest tightness. The patient provides the following history. He is known to myself and the hospitalist service from previous admissions with his most recent admission being 06/25/2023 in which he was admitted acute kidney injury and pneumonia. Renal function improved with IV flui
--- NOTE | 2023-07-25 08:33 | PM.IMPN ---
Progress Note: A&P Assessment and Plan (1) Acute and chronic respiratory failure with hypoxia: Code(s): J96.21 - Acute and chronic respiratory failure with hypoxia Status: Acute (2) Pleural effusion: Code(s): J90 - Pleural effusion, not elsewhere classified Status: Acute (3) Non-small cell lung cancer: Onset Date: 09/2022 Code(s): C34.90 - Malignant neoplasm of unspecified part of unspecified bronchus or lung Status: Acute (4) Chronic anemia: Code(s): D64.9 - Anemia, unspecified Status: Acute (5) Chronic kidney disease, stage 3: Code(s): N18.30 - Chronic kidney disease, stage 3 unspecified Status: Acute (6) Type 2 diabetes mellitus: Code(s): E11.9 - Type 2 diabetes mellitus without complications Status: Acute (7) Chronic obstructive pulmonary disease: Code(s): J44.9 - Chronic obstructive pulmonary disease, unspecified Status: Acute Plan Acute on chronic respiratory failure with hypoxia HX 3LNC at night/small cell lung carcinoma HX COPD CT Moderately large pleural effusions bilateral Was placed on Bipap initially Pulmonology was consulted 07/24: Right-sided thoracentesis pending Cytology pending Wean oxygen as tolerated CPAP at night Pleural Effusions CTA bilateral moderate PE LT sided thoracentesis 07/23 07/23 LT sided thoracentesis yielded 1000 mL venkata colored; PH was 7.46.? Red blood cells 4000, nucleated cells 1027, neutrophils 73%, lymphocytes 10%, monocytes 10%, macrophages 3%, mesothelial cells 4%.? g stain with many white blood cells and no organisms seen. RT sided scheduled 07/24 Pulmonary consulted Cytology pending Echo pending Iron deficiency anemia Normocytic Hgb stable Resume ferrous sulfate Transfuse PRBC if Hgb <7.0 H&H daily Diabetes Accu-Cheks a.c. HS sliding scale insulin hold oral diabetic medications resume patient's home long-acting Diabetic diet consult to dietitian Optimize Trevor inhibitors and statins. Watch for hypoglycemia/hypoglycemic protocol ordered HX HLD: Resumed Statin HX HTN: Resume lisinopril and metoprolol Code status: Full code per patient DVT prophylaxis: SCD's Stress ulcer prophylaxis: Protonix 40 daily PT/OT notes: PT/OT pending Disposition: Patient admitted with acute on chronic respiratory failure secondary to bilateral pleural effusions patient had at left-sided thoracentesis yesterday is scheduled to have RT sided thoracentesis today. Cytology was sent and pending with a consult to pulmonology. Time Spent With Patient Time with patient: 15 - 25 minutes Subjective Date/time seen: 07/25/23 08:33 Interval history: Admission: Medical Record This is a very pleasant 83-year-old male smoker with history of clinical stage III non-small cell lung adenocarcinoma arising from the right lung diagnosed in September 2022 status post chemoradiation which was completed in December 2022 currently on immunotherapy, chronic obstructive pulmonary disease, insulin-dependent diabetes, hypertension, and hyperlipidemia who presented to the emergency department for evaluation of shortness of breath and chest tightness. The patient provides the following history. He is known to myself and the hospitalist service from previous admissions with his most recent admission being 06/25/2023 in which he was admitted acute kidney injury and pneumonia. Renal function improved with IV fluid and he did well on antibiotics. He admits that he was feeling a bit short of breath on discharge he has had progressive dyspnea on lesser and lesser exertion since that time. Three days ago he developed left-sided pleuritic chest pain and his shortness of breath has worsened. In fact he has been wearing his oxygen at 4 L for several days not longer when typically he only uses it at nighttime. He denies fever, chills, sweats, sinus congestion, sore throat, cough, exertional ch
--- NOTE | 2023-07-25 10:52 | PM.PNPUL ---
Progress Note: A&P Assessment and Plan (1) Pleural effusion: Code(s): J90 - Pleural effusion, not elsewhere classified Status: Acute Assessment and Plan: 83-year-old with a history of diabetes, obstructive sleep apnea on CPAP, tobacco use, and lung adenocarcinoma with a right upper lobe nodule and a 4R lymph node demonstrating metastatic non-small cell carcinoma consistent with lung adenocarcinoma on 10/07/2022 (stage III, T1b, N2-3, M0) with mediastinal right hilar and left hilar adenopathy. concurrent chemo radiation and treated with Carboplatinum and Alimta x4 cycles and completed 30 fractions of radiation 11/08/22 to 12/19/22. Scheduled to have 1 year of durvalumab. note for Radiation Oncology states he completedstatus post XRT and chemotherapy finished approximately 6 months ago. Patient is on Durvalumab Status post 3 injections. With his 1st 2 injections he had fever and chills and was given dexamethasone 12 mg before his last injection on 07/19/2023 and did well. Currently patient has moderate bilateral pleural effusions, adjacent compressive atelectasis, No pulmonary embolism, no focal infiltrates, no diffuse ground-glass infiltrates, no interstitial lung disease. troponins were negative and BNP is mildly elevated at 150. He has no evidence of an infectious process. No evidence of COPD exacerbation. TSH was elevated at 10.4 on 07/19/2023 and 5.59 on 06/21/2023. Patient had a left thoracentesis with 1000 mL venkata colored fluid Removed. PH was 7.46. Red blood cells 4000, nucleated cells 1027, neutrophils 73%, lymphocytes 10%, monocytes 10%, macrophages 3%, mesothelial cells 4%. g stain with many white blood cells and no organisms seen. Plan: I will order right thoracentesis on 07/25/2023 and send full set of chemistries, microbiology studies, cell count and cytology. I will order an echocardiogram to assess LV function. I will order TSH and free T4 to assess for hypothyroidism. 07/25/23: Patient states that he is breathing back to his normal. He slept well with his home CPAP with 3 L bleed in. He has walked in the room to the bathroom without any issues. His room air saturations are 92%. He is afebrile. White blood cell count 4.1, creatinine 1.30. weight is 83.4 kg. TSH 9.06, high. Free T4 0.73, low. Chest x-ray this morning with small effusions left greater than right, bibasilar interstitial infiltrates. Plan: Patient is scheduled to have right thoracentesis today. No additional results back from his left thoracentesis. Currently is being back to his baseline and on room air with good saturations. If the patient tolerates his right thoracentesis with no pneumothorax and if his pH is normal and there was no organisms on his Gram stain indicating that there is no evidence of an empyema he would be ready to be discharged from a pulmonary perspective On these medications. Trelegy 100- 62.5-25 at 1 puff q.day Rescue albuterol 2 puffs q.4 hours p.r.n. shortness of breath or wheezing. Oxygen at rest and with ambulation per home O2 assessment which should be performed after his right thoracentesis today. When he naps or sleeps: CPAP 12 with 3 L bleed in. Follow-up with previously scheduled pulmonary appointment on 08/08/2023 at 11:45 a.m.. Discussed with Rosanne Vargas. Call with questions. (2) COPD (chronic obstructive pulmonary disease): Code(s): J44.9 - Chronic obstructive pulmonary disease, unspecified Status: Acute Assessment and Plan: Patient carries a history of COPD. He has severe apical predominant panlobular emphysema on his CT scan. Blood gas on 09/06/2022 7.41/40/59. Currently tells me he wears 3 L oxygen at night. Most recent home O2 assessment on 06/28/2023 demonstrated no oxygen needed with rest or activity. Plan: I see no evidence of COPD exacerbation, pneumonia or bronchitis. At this time I will continue patient's home trelegy 100. Cu
[2023-07-25 11:20] LABS: Glucose Point of Care 188 mg/dl (65-105)
[2023-07-25] MEDS: PERFLUTREN LIPID MICROSPHERES 1.5 ML VIAL DILUTED TO 10 ML TOTAL VOLUME IV PUSH (12:05)
--- NOTE | 2023-07-25 12:05 | IVDEFINITY ---
Prior to administration of IV Definity the patient was educated on the risks and benefits of the imaging enhancing agent including potential adverse side effects. The patient verbalized understanding. Allergies were verified. No exclusion criteria were identified and at least one of the following inclusion criteria were met: 1) physician request, 2) patient technically difficult to image (per the [place] [employer] guidelines of two or more segments not discernable within the apical view), or 3) questionable left ventricular function. ?
[2023-07-25 13:59] LABS: pH Pleural Fluid > 0.000 (7.210-7.500)
[2023-07-25 14:49] LABS: Color Pleural Fluid Yellow (Colorless); Lymphocytes Pleural Fluid 36 %; Macrophages Pleural Fluid 18 %; Mesothelial Cells Pleural Flui 1 %; Monocytes Pleural Fluid 39 %; Neutrophils Pleural Fluid 6 % (0-25); Pleural fluid source Pleural fluid
[2023-07-25 14:59] LABS: Nucleated Cell Pleural Fluid 437 /uL (0-1000); RBC Pleural Fluid 6000 /uL (0-10000)
[2023-07-25 15:00] LABS: Appearance Pleural Fluid Hazy (Clear)
--- NOTE | 2023-07-25 15:17 | HOMEO2EVAL ---
Evaluation was performed at [facility] Home Oxygen Evaluation RC: Home Oxygen (O2) Evaluation Start: 07/25/23 10:59 Freq: ONCE Status: Active Protocol: RPE Activity Type Activity Date Activity User E-sign Co-sign Detail Recorded Client Recorded Date Recorded By Document 07/25/23 15:00 [email or web address] [email or web address] 07/25/23 15:17 NICK Document 07/25/23 15:05 NICK [email or web address] 07/25/23 15:17 NICK Document 07/25/23 15:15 NICK [email or web address] 07/25/23 15:17 NICK 07/25/23 07/25/23 07/25/23 15:00 15:05 15:15 Home O2 Evaluation [Oxygen] -Test Phase Resting Exercise Resting -Oxygen Delivery Room Air Room Air Room Air [Pulse Oximetry] -Pulse Oximetry (90-100 %) 97 96 97 [Pulse Rate] -Pulse Rate (60-100 beats/min) 82 103 H 86 [Exercise] -Ambulation Distance (feet) 400 -Ambulation Distance (meters) 121.91 [Comments] -Home Oxygen Evaluation Comments No home O2 needed at rest or with activity [Charges] -Evaluation Charges O2 Evaluation by Pulmonary RC: Home Oxygen (O2) Evaluation Start: 07/25/23 15:12 Freq: ONCE Status: Active Protocol: RPE Activity Type Activity Date Activity User E-sign Co-sign Detail Recorded Client Recorded Date Recorded By Document 07/25/23 15:00 NICK [email or web address] 07/25/23 15:17 NICK 07/25/23 15:00 Home O2 Evaluation [Oxygen] -Test Phase Resting -Oxygen Delivery Room Air [Pulse Oximetry] -Pulse Oximetry (90-100 %) 97 [Pulse Rate] -Pulse Rate (60-100 beats/min) 82 [Charges] -Evaluation Charges O2 Evaluation by Pulmonary
--- NOTE | 2023-07-25 15:18 | PCRCNOTE ---
Home O2 eval done, no home O2 needed at rest or with activity. Pt does have [employer] for CPAP and O2 at night bleed-in at 3L
--- NOTE | 2023-07-25 15:26 | P.DS_ITS ---
DS: Admitting Diagnosis Discharge Date 07/25/2023 Admitting Diagnosis Acute on chronic respiratory failure with hypoxia secondary to pleural effusions bilateral DS: Discharge Diagnosis Discharge Diagnosis (1) Acute and chronic respiratory failure with hypoxia: Code(s): J96.21 - Acute and chronic respiratory failure with hypoxia Status: Acute (2) Pleural effusion: Code(s): J90 - Pleural effusion, not elsewhere classified Status: Acute (3) Non-small cell lung cancer: Onset Date: 09/2022 Code(s): C34.90 - Malignant neoplasm of unspecified part of unspecified bronchus or lung Status: Acute (4) Chronic anemia: Code(s): D64.9 - Anemia, unspecified Status: Acute (5) Chronic kidney disease, stage 3: Code(s): N18.30 - Chronic kidney disease, stage 3 unspecified Status: Acute (6) Type 2 diabetes mellitus: Code(s): E11.9 - Type 2 diabetes mellitus without complications Status: Acute (7) Chronic obstructive pulmonary disease: Code(s): J44.9 - Chronic obstructive pulmonary disease, unspecified Status: Acute (8) Hypothyroidism: Code(s): E03.9 - Hypothyroidism, unspecified Status: Acute Plan Acute on chronic respiratory failure with hypoxia * HX 3LNC at night/small cell lung carcinoma * HX COPD * CT Moderately large pleural effusions bilateral * Was placed on Bipap initially * Pulmonology was consulted * 07/24: Right-sided thoracentesis pending * Cytology pending * Wean oxygen as tolerated * CPAP at night Pleural Effusions * CTA bilateral moderate PE * LT sided thoracentesis 07/23 * 07/23 LT sided thoracentesis yielded 1000 mL venkata colored; PH was 7.46.? Red blood cells 4000, nucleated cells 1027, neutrophils 73%, lymphocytes 10%, monocytes 10%, macrophages 3%, mesothelial cells 4%.? g stain with many white blood cells and no organisms seen. * RT sided scheduled 07/24 * Pulmonary consulted * Cytology pending * Echo pending Iron deficiency anemia * Normocytic * Hgb stable * Resume ferrous sulfate * Transfuse PRBC if Hgb <7.0 * H&H daily Diabetes * Accu-Cheks a.c. HS * sliding scale insulin * hold oral diabetic medications * resume patient's home long-acting * Diabetic diet * consult to dietitian * Optimize Trevor inhibitors and statins. * Watch for hypoglycemia/hypoglycemic protocol ordered HX HLD: Resumed Statin HX HTN: Resume lisinopril and metoprolol Disposition: Discharged home no change in oxygen requirements prior to discharge. Pulmonology will call with cytology results. DS: Summary Hospital Course Reason for hospitalization: Acute on chronic respiratory failure with hypoxia secondary to pleural effusions bilateral Hospital Course: Interval history: Admission: Medical Record This is a very pleasant 83-year-old male smoker with history of clinical stage III non-small cell lung adenocarcinoma arising from the right lung diagnosed in September 2022 status post chemoradiation which was completed in December 2022 currently on immunotherapy, chronic obstructive pulmonary disease, insulin-dep endent diabetes, hypertension, and hyperlipidemia who presented to the emergency department for evaluation of shortness of breath and chest tightness. The patient provides the following history. He is known to myself and the hospitalist service from previous admissions with his most recent admission being 06/25/2023 in which he was admitted [facility]
--- NOTE | 2023-07-25 15:26 | PM.DS ---
DS: Admitting Diagnosis Discharge Date 07/25/2023 Admitting Diagnosis Acute on chronic respiratory failure with hypoxia secondary to pleural effusions bilateral DS: Discharge Diagnosis Discharge Diagnosis (1) Acute and chronic respiratory failure with hypoxia: Code(s): J96.21 - Acute and chronic respiratory failure with hypoxia Status: Acute (2) Pleural effusion: Code(s): J90 - Pleural effusion, not elsewhere classified Status: Acute (3) Non-small cell lung cancer: Onset Date: 09/2022 Code(s): C34.90 - Malignant neoplasm of unspecified part of unspecified bronchus or lung Status: Acute (4) Chronic anemia: Code(s): D64.9 - Anemia, unspecified Status: Acute (5) Chronic kidney disease, stage 3: Code(s): N18.30 - Chronic kidney disease, stage 3 unspecified Status: Acute (6) Type 2 diabetes mellitus: Code(s): E11.9 - Type 2 diabetes mellitus without complications Status: Acute (7) Chronic obstructive pulmonary disease: Code(s): J44.9 - Chronic obstructive pulmonary disease, unspecified Status: Acute (8) Hypothyroidism: Code(s): E03.9 - Hypothyroidism, unspecified Status: Acute Plan Acute on chronic respiratory failure with hypoxia HX 3LNC at night/small cell lung carcinoma HX COPD CT Moderately large pleural effusions bilateral Was placed on Bipap initially Pulmonology was consulted 07/24: Right-sided thoracentesis pending Cytology pending Wean oxygen as tolerated CPAP at night Pleural Effusions CTA bilateral moderate PE LT sided thoracentesis 07/23 07/23 LT sided thoracentesis yielded 1000 mL venkata colored; PH was 7.46.? Red blood cells 4000, nucleated cells 1027, neutrophils 73%, lymphocytes 10%, monocytes 10%, macrophages 3%, mesothelial cells 4%.? g stain with many white blood cells and no organisms seen. RT sided scheduled 07/24 Pulmonary consulted Cytology pending Echo pending Iron deficiency anemia Normocytic Hgb stable Resume ferrous sulfate Transfuse PRBC if Hgb <7.0 H&H daily Diabetes Accu-Cheks a.c. HS sliding scale insulin hold oral diabetic medications resume patient's home long-acting Diabetic diet consult to dietitian Optimize Trevor inhibitors and statins. Watch for hypoglycemia/hypoglycemic protocol ordered HX HLD: Resumed Statin HX HTN: Resume lisinopril and metoprolol Disposition: Discharged home no change in oxygen requirements prior to discharge. Pulmonology will call with cytology results. DS: Summary Hospital Course Reason for hospitalization: Acute on chronic respiratory failure with hypoxia secondary to pleural effusions bilateral Hospital Course: Interval history: Admission: Medical Record This is a very pleasant 83-year-old male smoker with history of clinical stage III non-small cell lung adenocarcinoma arising from the right lung diagnosed in September 2022 status post chemoradiation which was completed in December 2022 currently on immunotherapy, chronic obstructive pulmonary disease, insulin-dependent diabetes, hypertension, and hyperlipidemia who presented to the emergency department for evaluation of shortness of breath and chest tightness. The patient provides the following history. He is known to myself and the hospitalist service from previous admissions with his most recent admission being 06/25/2023 in which he was admitted acute kidney injury and pneumonia. Renal function improved with IV fluid and he did well on antibiotics. He admits that he was feeling a bit short of breath on discharge he has had progressive dyspnea on lesser and lesser exertion since that time. Three days ago he developed left-sided pleuritic chest pain and his shortness of breath has worsened. In fact he has been wearing his oxygen at 4 L for several days not longer when typically he only uses it at nighttime. He denies fever, chills, sweats, sinus eric
--- NOTE | 2023-07-25 16:15 | ECHO_ITS ---
Patient Info Name: Michele Watson Age: 83 years : 1940 Gender: Male Ht: 68 in Wt: 184 lbs BSA: 2.02 m2 HR: 91 bpm BP: 129 / 67 mmHg Technical Quality: Poor Exam Date: 07/25/2023 8:43 AM Exam Location: Echo Lab Patient Status: Inpatient Admit Date: 07/24/2023 Staff Ordering Physician: Patel Espitia MD Supervisor Pipe Finishing: Radames Hutchison RDCS Attending Provider: Arthur Gibson MD Referring Physician: Omkar TONEY; Exam Type: CA echo dop bubble study w con Study Info Indications J96.91 - Respiratory failure, unspecified with hypoxia Complete two-dimentional, color flow and Doppler transthoracic echocardiogram is performed with agitated saline and with contrast to opacify the left ventricle and to improve the delineation of the left ventricle endocardial borders. Contrast/Agitated Saline Contrast/Ag. Saline: Definity Amount: 4.00 ml IV Access Condition: patent with no signs of infiltration Contrast/Ag. Saline: Agitated Saline Amount: 14.00 ml IV Access Condition: patent with no signs of infiltration Reason for Poor Study: patient body habitus Summary 1. Technically difficult study with limited views. 2. Left ventricular chamber dimension is normal. 3. Left ventricular systolic function is normal, estimated at >70%. 4. The left ventricular diastolic function is grade I diastolic dysfunction. 5. Right ventricular systolic function is normal. 6. Intact interatrial septum visualized by color flow and agitated saline imaging. Negative bubble study. 7. Normal inferior vena cava with >50% collapse upon inspiration consistent with normal right atrial pressure, 3 mmHg. 8. No significant valvular disease noted. Left Ventricle Left ventricular chamber dimension is normal. Left ventricular systolic function is normal, estimated at >70%. The left ventricular diastolic function is grade I diastolic dysfunction. Right Ventricle Right ventricular chamber dimension is normal. Right ventricular systolic function is normal. Left Atria Left atrial chamber dimension is normal. Right Atria Right atrial chamber dimension is normal. Atrial Septum Intact interatrial septum visualized by color flow and agitated saline imaging. Negative bubble study. Aortic Valve The aortic valve is not well visualized. There is no aortic valve stenosis. There is no aortic valve regurgitation. There is moderate aortic valve calcification. Pulmonic Valve The pulmonic valve is not well visualized. Mitral Valve There is trace mitral valve regurgitation. Tricuspid Valve There is trace tricuspid valve regurgitation. Pericardium/Pleural There is no pericardial effusion. Inferior Vena Cava Normal inferior vena cava with >50% collapse upon inspiration consistent with normal right atrial pressure, 3 mmHg. Aorta The aortic root size at the sinus of Valsalva is normal. Left Ventricular Outflow Tract Name Value Normal LVOT 2D LVOT Diameter 2.1 cm LVOT Doppler LVOT Peak Gradient 3 mmHg LVOT Mean Gradient 1 mmHg LVOT VTI 15 cm LV
[2023-07-26 15:59] LABS: Alpha-1-Antitrypsin, QN 174 mg/dL (83-199)
[2023-07-27 22:58] LABS: Glucose Pleural Fluid 76 mg/dL
[2023-08-01 21:25] LABS: Albumin Pleural Fluid 2.3 g/dL; Amylase, Pleural Fluid 60 U/L; LDH Pleural Fluid 242 U/L; Total Protein Pleural Fluid 4.3 g/dL
[2023-08-05 14:08] LABS: Albumin Pleural Fluid 2.3 g/dL; Amylase, Pleural Fluid 57 U/L; Glucose Pleural Fluid 182 mg/dL
== END 2023-07-25 15:24 | disposition home or self-care (01) ==
LOC: ANHED 14:41 → ANH3MEDSUR 15:38
PROVIDERS: Emergency Medicine; Internal Medicine Pulmonary Disease; Physician Assistant; Admitting Provider Internal Medicine; Emergency Provider Emergency Medicine; PCP Internal Medicine; Visit Provider Internal Medicine
DX: J96.21 Acute and chronic respiratory failure with hypoxia (principal); J90 Pleural effusion, not elsewhere classified; C34.11 Malignant neoplasm of upper lobe, right bronchus or lung; J44.9 Chronic obstructive pulmonary disease, unspecified; Z99.81 Dependence on supplemental oxygen; E03.9 Hypothyroidism, unspecified; D50.9 Iron deficiency anemia, unspecified; I12.9 Hypertensive chronic kidney disease with stage 1 through stage 4 chronic kidney disease, or unspecified chronic kidney disease; E11.22 Type 2 diabetes mellitus with diabetic chronic kidney disease; N18.30 Chronic kidney disease, stage 3 unspecified; E78.5 Hyperlipidemia, unspecified; G47.33 Obstructive sleep apnea (adult) (pediatric); F17.210 Nicotine dependence, cigarettes, uncomplicated; Z90.49 Acquired absence of other specified parts of digestive tract; Z85.038 Personal history of other malignant neoplasm of large intestine; Z79.84 Long term (current) use of oral hypoglycemic drugs; Z79.4 Long term (current) use of insulin; Z79.51 Long term (current) use of inhaled steroids
CPT/HCPCS: 32555; 36415; 71045; 71046; 71275; 80048; 80053; 82042; 82103; 82104; 82150; 82465; 82945; 82948; 83615; 83690; 83735; 83880; 83986; 84155; 84157; 84311; 84439; 84443; 84478; 84484; 85025; 85610; 85730; 87015; 87070; 87075; 87102; 87116; 87205; 87206; 88108; 88305; 88342; 89051; 93005; 94002; 94618; 94640; 96374; 96375; 99285; A9270; C8929; G0378; Q9957; Q9967

== ENCOUNTER 2023-08-10 12:13 | Outpatient (CLI) | payer MEDICARE, SELFPAY ==
--- NOTE | ~2023-08-10 | XR_ITS ---
XR chest 2V 08/10/2023 12:30 Indication: Pleural effusion Procedure: 2 view chest Comparison: Comparison to multiple prior studies sequentially, with oldest reviewed study dated 06/2023. Findings: Portacatheter tip in the SVC. Heart size normal. Small pleural effusions. No pneumothorax. Bibasilar atelectasis. There is evidence of chronic granulomatous disease. Impression: 1: Bibasilar atelectasis with small pleural effusions, unchanged compared with 07/25/2023 Reviewed, dictated and finalized at location B. Impression: 1: Bibasilar atelectasis with small pleural effusions, unchanged compared with 07/25/2023
== END 2023-08-10 12:14 | disposition home or self-care (01) ==
LOC: ANHIMG 12:14
PROVIDERS: PCP Internal Medicine; Visit Provider Internal Medicine Critical Care Medicine
DX: J90 Pleural effusion, not elsewhere classified (principal); J98.11 Atelectasis
CPT/HCPCS: 71046

== ENCOUNTER 2023-08-15 01:48 | Day surgery (SDC) | payer MEDICARE, SELFPAY ==
[2023-08-14 11:01] VITALS: BMI 29.1
--- NOTE | ~2023-08-15 | BM_ITS ---
EXAMINATION: CCL bone marrow asp w bx diag ORDER COMPLETED DATE: 08/15/2023 09:41 INDICATION: Anemia TECHNIQUE: A time-out was performed to verify the patient's name, date of , and procedure to b e performed. The procedure including the risks and benefits was discussed with the patient. Risks dis cussed included bleeding, infection, nerve injury and allergic reaction. The patient understood the r isks and agreed to proceed. The skin overlying the right posterior iliac spine was prepped and draped in usual sterile fashion. Anesthetic was administered with 1% lidocaine subcutaneously. Moderate co nscious sedation was achieved with 50 mcg fentanyl IV. An 11 gauge needle was inserted into the right ilium with fluoroscopic guidance. Bone marrow was aspirated. An 8 gauge needle was then inserted int o the right ilium with fluoroscopic guidance. A core bone marrow biopsy was obtained. The needle was removed and the entry site was cleaned and dressed. There were no immediate complications. A total o f 92 fluoroscopic images were recorded. Fluoroscopy exposure time was 0.1 minutes. Total DAP was 217 mGycm^2 FINDINGS: Real-time fluoroscopy demonstrates the biopsy needle tip overlying the right posterior donna c spine. IMPRESSION: 1. Successful fluoroscopic guided bone marrow aspiration. 2. Successful fluoroscopic guided bone marrow biopsy. Reviewed, dictated and finalized at location A.
[2023-08-15 07:52] VITALS: BP 118/65; PULSE 92; RESP 16; TEMP 36.2; O2SAT 92
[2023-08-15 08:06] LABS: Basophils Percent Auto 0.5 % (0.2-1.2); Eosinophils Absolute Auto 0.2 K/mm3 (0-0.3); Eosinophils Percent Auto 3.3 % (0-4.4); Hematocrit 33.7 % (42.0-52.0); Immature Granulocyte Absolute 0.03 K/mm3 (0.00-0.031); Immature Granulocyte Percent A 0.5 % (0-0.5); Lymphocytes Percent Auto 20.1 % (18.3-44.2); Mean Corpuscular HGB Conc 29.7 g/dl (32-36); Mean Corpuscular Hemoglobin 29.8 pg (26-34); Mean Corpuscular Volume 100.3 fl (80-100); Mean Platelet Volume 9.7 fl (7.4-10.4); Monocytes Absolute Auto 0.5 K/mm3 (0.1-0.6); Monocytes Percent Auto 9.1 % (2.6-8.5); Neutrophils Absolute Auto 3.6 K/mm3 (1.3-6.7); Neutrophils Percent Auto 66.5 % (45.5-73.1); Platelet Count Result 123 k/mm3 (150-375); Red Blood Count 3.36 M/mm3 (4.6-6.20); Red Cell Distribution Width 18.5 % (11.5-14.5); White Blood Count 5.5 K/mm3 (4.5-10.0)
[2023-08-15 08:31] LABS: Anisocytosis 1+; Hypochromasia 1+; Platelet Estimate Adequate (Adequate); Schistocytes None Seen
[2023-08-15 08:34] LABS: Prothrombin Time 13.6 Seconds (11.1-14.7)
--- NOTE | 2023-08-15 09:10 | WPDMODSED ---
Moderate Sedation Note-Pt Data Patient Data Diagnosis: anemia Present Complaint: anemia Procedure to be performed/Plan: bone marrow biopsy Allergies Allergy/AdvReac Type Severity Reaction Status Date / Time codeine AdvReac heartache Verified 08/14/23 11:16 niacin AdvReac [place] Verified 08/14/23 11:16 Home Medications Medication Instructions Recorded Confirmed Type citalopram 20 mg tablet 20 mg PO DAILY 09/06/22 08/14/23 History glimepiride 4 mg tablet 4 mg PO BID 09/06/22 08/14/23 History lisinopril 20 mg tablet 20 mg PO DAILY 09/06/22 08/14/23 History lorazepam 0.5 mg tablet 0.5 mg PO TID 09/06/22 08/14/23 History metformin 1,000 mg tablet 1,000 mg PO BID 09/06/22 08/14/23 History rosuvastatin 20 mg tablet 20 mg PO DAILY 09/06/22 08/14/23 History fluticasone fur. 100 mcg-umeclid 1 inh inhalation DAILYRT #60 ea 09/07/22 08/14/23 Rx 62.5 mcg-vilant 25 mcg inhalat.powder (Trelegy Ellipta) insulin degludec 100 unit/mL (3 15 unit subcut HS 10/24/22 08/14/23 History mL) subcutaneous pen (Tresiba FlexTouch U-100 insulin) ferrous sulfate 325 mg (65 mg 325 mg PO DAILY 04/17/23 08/14/23 History iron) tablet mecobalamin (vitamin B12) 1,000 1,000 mcg PO DAILY 04/17/23 08/14/23 History mcg chewable tablet (B12 Active) albuterol sulfate 2.5 mg/3 mL 2.5 mg (3 mL) inhalation Q6HRT PRN 05/12/23 08/14/23 Rx (0.083 %) solution for nebulization wheezing #90 mL albuterol sulfate 90 mcg/actuation 2 puff inhalation QID PRN 05/12/23 08/14/23 Rx aerosol inhaler shortness of breath or wheezing #8.5 grams metoprolol tartrate 25 mg tablet 12.5 mg PO BID #60 tabs 06/28/23 08/14/23 Rx levothyroxine 50 mcg tablet 50 mcg PO DAILY@0630 #30 tabs 07/25/23 08/14/23 Rx (Synthroid) fluticasone fur. 100 mcg-umeclid 100-62.5-25 mcg Blister With 08/08/23 08/14/23 Sample 62.5 mcg-vilant 25 mcg Device#2 Samples inhalat.powder (Trelegy Ellipta) Sedation/Anesthesia: No previous sedation/anesthesia problems (including family history). [facility] Past Medical History Medical History Chronic anemia Chronic kidney disease, stage 3 Chronic obstructive pulmonary disease Chronic respiratory failure with hypoxia Colon cancer (2014) Hyperlipidemia Hypertension Non-small cell lung cancer (09/2022) Arising in the right lung status post chemo radiation, currently on immunotherapy. Obstructive sleep apnea Thrombocytopenia Tobacco abuse Type 2 diabetes mellitus Surgical History Surgical History History of bilateral cataract extraction History of cholecystectomy (2002) History of colon resection (2014) For colon cancer. History of skin graft Family History Family History Other Unknown family medical history Social History Social History Social History: Surrogate medical decision maker: Mallorie Watson, spouse. Code status: Full code. Smoking packs per day: 0.15 Smoking cigarettes per day: 3.0 Years smoked: 64 Smoking pack-years: 9.60 Smoking status: Current every day smoker Tobacco type: cigarettes Second hand tobacco smoke exposure: Yes Alcohol intake: never Substance use: never Substance use type: does not use Do You Feel Safe in your Home?: Yes Lack of Transportation: No Lack of Food: Never True Current Housing: I Have Housing Concerned About Future Housing: No Difficulty Paying Gas/Electric Bills: No Difficulty Paying for Meds: No Currently Unemployed: No Education: Grade School Difficulty w/ Childcare or Family Care: No Living arrangements: with family Occupation/Education: retired Spiritual care concerns: No Mod Sed Physical Exam Physical Exam Pre Procedural Exam: Normal: Appearance, Throat, Lungs, Heart Rate and Hear
[2023-08-15 09:45] VITALS: BP 131/72; PULSE 97; RESP 16; TEMP 36.2; O2SAT 95
[2023-08-15 10:00] VITALS: BP 115/70; PULSE 95; RESP 15; O2SAT 95
[2023-08-15 10:15] VITALS: BP 118/70; PULSE 96; RESP 20; O2SAT 91
[2023-08-15 10:30] VITALS: BP 119/68; PULSE 96; RESP 20; O2SAT 92
== END 2023-08-15 10:50 | disposition home or self-care (01) ==
PROVIDERS: PCP Internal Medicine; Referring Provider Internal Medicine Hematology & Oncology; Visit Provider Radiology Diagnostic Radiology
DX: D64.9 Anemia, unspecified (principal); I12.9 Hypertensive chronic kidney disease with stage 1 through stage 4 chronic kidney disease, or unspecified chronic kidney disease; E11.22 Type 2 diabetes mellitus with diabetic chronic kidney disease; N18.30 Chronic kidney disease, stage 3 unspecified; J44.9 Chronic obstructive pulmonary disease, unspecified; J96.11 Chronic respiratory failure with hypoxia; E78.5 Hyperlipidemia, unspecified; G47.33 Obstructive sleep apnea (adult) (pediatric); Z85.118 Personal history of other malignant neoplasm of bronchus and lung; Z92.21 Personal history of antineoplastic chemotherapy; Z92.3 Personal history of irradiation; Z90.49 Acquired absence of other specified parts of digestive tract; Z79.84 Long term (current) use of oral hypoglycemic drugs; Z79.51 Long term (current) use of inhaled steroids; Z79.4 Long term (current) use of insulin; F17.210 Nicotine dependence, cigarettes, uncomplicated
CPT/HCPCS: 36415; 38222; 85025; 85610; 88305; 88311; 88313; J1642; J2250; J3010; J7040

== ENCOUNTER 2023-08-25 10:27 | Outpatient (CLI) | payer MEDICARE, SELFPAY ==
--- NOTE | ~2023-08-25 | CT_ITS ---
EXAMINATION:CT diagnostic chest w con DATE: 08/25/2023 11:54 INDICATION: Non-small cell lung cancer. TECHNIQUE: Computed tomography (CT) of the chest was performed with 75 mL Omnipaque 350 intravenous c ontrast. Automated exposure control and iterative reconstruction technique were employed. The dose-le ngth product (DLP) was 378.21 mGy-cm. COMPARISON: Chest CT 07/24/2023, 09/06/2022 FINDINGS: There is severe emphysema. There are moderate-sized pleural effusions. There is mild depend ent atelectasis bilaterally. There is a 14 mm nodule in right lung upper lobe. There is mild scarring at the lung apices. Calcified right lung nodules and calcified right hilar and mediastinal lymph nod es are consistent with old granulomatous disease. There are airspace opacities in right perihilar reg ion, consistent with radiation pneumonitis. There are two 5 mm nodules in right middle lobe, stable f rom 09/06/2022, likely benign. There is a left internal jugular port with tip at superior cavoatrial ju nction. The heart size is normal. There are coronary artery calcifications. No pericardial effusion. There are bridging endplate osteophytes at multiple levels in the spine, consistent with diffuse idi opathic skeletal hyperostosis (DISH). IMPRESSION: 1. Stable 14 mm nodule in right lung upper lobe, consistent with primary bronchogenic carcinoma. 2. Severe emphysema. 3. Moderate-sized pleural effusions. Reviewed, dictated and finalized at location A. IMPRESSION: 1. Stable 14 mm nodule in right lung upper lobe, consistent with primary bronch ogenic carcinoma. 2. Severe emphysema. 3. Moderate-sized pleural effusions.
[2023-08-25 12:46] LABS: Iron 42 ug/dL (49-181)
[2023-08-25 12:55] LABS: Percent Iron Saturation 16 % (20-50)
[2023-09-01 08:10] LABS: Reference Lab Test Result 1.87
== END 2023-08-25 10:28 | disposition home or self-care (01) ==
PROVIDERS: PCP Internal Medicine; Visit Provider Internal Medicine Hematology & Oncology
DX: D64.9 Anemia, unspecified (principal); J90 Pleural effusion, not elsewhere classified; J43.9 Emphysema, unspecified; R91.1 Solitary pulmonary nodule
CPT/HCPCS: 36415; 71260; 82607; 82728; 83540; 83550; Q9967

== ENCOUNTER 2023-08-29 09:03 | Outpatient (CLI) | payer MEDICARE, SELFPAY ==
[2023-08-25 15:26] VITALS: BMI 26.2
--- NOTE | 2023-08-25 15:27 | PC.NURSE ---
Addendum entered by Malika Arreola RN 08/28/23 08:32: INSTRUCTED TO ARRIVE TO IMAGING CENTER ENTRANCE AT 9:00AM. DAUGHTER RELAYS UNDERSTANDING. Original Note: Pre Radiology instructions Report to the outpatient [facility] on date _08/29/23____ at time __9:00AM for procedure Time: __9:30AM__ YOU MAY BE MONITORED AT HOSPITAL FOR UP TO 4 HOURS AFTER YOUR PROCEDURE. A visitor will be allowed to accompany the patient into the hospital. You and your visitor will be asked to self-screen and do not enter if you have any COVID symptoms. A mask is OPTIONAL within the hospital. Patients are to have no food or drink 6 hours prior to procedure time Driving will be restricted after the procedure, you must have a person to drive you home. Labs will be drawn in preop area and once reviewed, you will be taken to radiology area for procedure. When the procedure is completed, you will be taken to outpatient where you will be monitored for several hours. You may have one visitor in this area. Other than holding anti-coagulants, patient may take other medication(s) as scheduled. Prior to your appointment date patients are instructed to hold anti-coagulants after discussing with ordering provider to stop. If unable to discontinue anti-coagulants please notify radiologist. ? No aspirin or warfarin (Coumadin) for 7 days prior to the procedure. ? No clopidogrel (Plavix), ticagrelor (Brilinta), prasugrel (Effient) or dabigatran (Pradaxa) for 5 days prior to the procedure. ? No rivaroxaban (Xarelto), apixaban (Eliquis), dipyridamole (Aggrenox or Persantine) or cilostazol (Pletal) for 2 days prior to the procedure. Medications to discontinue per physician: __NONE Date to take last dose: Please leave all valuables, including medications, at home the day of procedure. The hospital will not accept responsibility for valuables. Wear comfortable, loose fitting clothing.? Follow any additional instructions given to you from ordering provider. Telephone instructions given to __PATIENT'S DAUGHTER and asked if any additional questions and then verbalized understanding. Patient advised to call scheduling provider office or registration scheduling [phone] if any additional questions.
[2023-08-29] VITALS (7 sets, daily range): BP systolic 98–119; BP diastolic 54–62; PULSE 88–92; O2SAT 95–98
--- NOTE | ~2023-08-29 | US_ITS ---
EXAMINATION: US thoracentesis DATE: 08/29/2023 09:49 INDICATION: pleural effusion TECHNIQUE: The procedure and its risks, benefits, and alternatives were discussed with the patient. P otential risks discussed included bleeding, infection, and pneumothorax. The patient understood the r isks and agreed to proceed. The skin was prepped and draped in sterile fashion. 1% lidocaine was used for local anesthesia. Under ultrasound guidance, a 5 Fr catheter with trochar was advanced into the left pleural effusion. Fluid was aspirated. The catheter was removed, and a dressing was applied. The re were no immediate complications. FINDINGS: Ultrasound images demonstrate a left pleural effusion and the catheter within the fluid. IMPRESSION: 1. Successful ultrasound-guided thoracentesis yielding 1000 mL of venkata-colored fluid. Reviewed, dictated and finalized at location A. IMPRESSION: 1. Successful ultrasound-guided thoracentesis yielding 1000 mL of venkata-colore d fluid.
--- NOTE | ~2023-08-29 | XR_ITS ---
EXAMINATION: [id number] DATE: 08/29/2023 09:44 INDICATION: Left pleural effusion status post thoracentesis. TECHNIQUE: A single frontal view of the chest was obtained. COMPARISON: Chest 2 views 08/10/23, chest CT 08/25/2023 FINDINGS: There are moderate-sized pleural effusions. There are airspace opacities in the lower lung zones. There are lucencies and interstitial opacities in the lungs, consistent with emphysema. No pne umothorax. The heart size is normal. There is a left internal jugular port with tip at superior cavoa trial junction. IMPRESSION: 1. Moderate-sized pleural effusions. 2. Airspace opacities in the lower lung zones, likely atelectasis. 3. Emphysema. Reviewed, dictated and finalized at location A.
== END 2023-08-29 11:41 | disposition home or self-care (01) ==
PROVIDERS: Radiology Diagnostic Radiology; PCP Internal Medicine; Referring Provider Internal Medicine Hematology & Oncology; Visit Provider Internal Medicine Hematology & Oncology
DX: J90 Pleural effusion, not elsewhere classified (principal); J43.9 Emphysema, unspecified; R91.8 Other nonspecific abnormal finding of lung field
CPT/HCPCS: 32555; 88108; 88305

== ENCOUNTER 2023-09-05 09:47 | Outpatient (CLI) | payer MEDICARE, SELFPAY ==
--- NOTE | 2023-09-01 10:20 | PC.NURSE ---
Addendum entered by Carey Randle RN 09/04/23 08:23: Pt/family aware to arrive at radiology entrance. Original Note: Pre Radiology instructions Report to the outpatient laura padgett on date _09/05/23____ at time _0930 for procedure Time: _1030___ YOU MAY BE MONITORED AT HOSPITAL FOR UP TO 4 HOURS AFTER YOUR PROCEDURE. A visitor will be allowed to accompany the patient into the hospital. You and your visitor will be asked to self-screen and do not enter if you have any COVID symptoms. A mask is OPTIONAL within the hospital. Patients are to have no food or drink 6 hours prior to procedure time Driving will be restricted after the procedure, you must have a person to drive you home. Labs will be drawn in preop area and once reviewed, you will be taken to radiology area for procedure. When the procedure is completed, you will be taken to outpatient where you will be monitored for several hours. You may have one visitor in this area. Other than holding anti-coagulants, patient may take other medication(s) as scheduled. Prior to your appointment date patients are instructed to hold anti-coagulants after discussing with ordering provider to stop. If unable to discontinue anti-coagulants please notify radiologist. ? No aspirin or warfarin (Coumadin) for 7 days prior to the procedure. ? No clopidogrel (Plavix), ticagrelor (Brilinta), prasugrel (Effient) or dabigatran (Pradaxa) for 5 days prior to the procedure. ? No rivaroxaban (Xarelto), apixaban (Eliquis), dipyridamole (Aggrenox or Persantine) or cilostazol (Pletal) for 2 days prior to the procedure. Medications to discontinue per physician: __DAUGHTER STATES WAS INFORMED DO NOT TAKE DIABETIC MEDICATIONS MORNING OF PROCEDURE Date to take last dose: Please leave all valuables, including medications, at home the day of procedure. The hospital will not accept responsibility for valuables. Wear comfortable, loose fitting clothing.? Follow any additional instructions given to you from ordering provider. Telephone instructions given to __DAUGHTER and asked if any additional questions and then verbalized understanding. Patient advised to call scheduling provider office or registration scheduling [phone] if any additional questions.
[2023-09-01 10:23] VITALS: BMI 26.9
[2023-09-05] VITALS (8 sets, daily range): BP systolic 104–128; BP diastolic 54–71; PULSE 75–99; RESP 15–16; O2SAT 95–100
--- NOTE | ~2023-09-05 | XR_ITS ---
[id number] Ordering provider: Louis Jones MD History: 83 years Male with . POST THORA . Comparison: August 29, 2023 FINDINGS: MEDIASTINUM: The cardiac silhouette is not enlarged. Left Port-A-Cath with the tip overlying superior vena cava. LUNGS: No pneumothorax. Left basilar atelectasis versus pneumonia with pleural effusion. OTHER: No free air under the diaphragm. IMPRESSION: No change from previous examination. Reviewed, dictated and finalized at location A.
--- NOTE | ~2023-09-05 | US_ITS ---
EXAMINATION: US thoracentesis DATE: 09/05/2023 11:26 INDICATION: pleural effusion TECHNIQUE: The procedure and its risks, benefits, and alternatives were discussed with the patient. P otential risks discussed included bleeding, infection, and pneumothorax. The patient understood the r isks and agreed to proceed. The skin was prepped and draped in sterile fashion. 1% lidocaine was used for local anesthesia. Under ultrasound guidance, a 5 Fr catheter with trochar was advanced into the left pleural effusion. Fluid was aspirated. The catheter was removed, and a dressing was applied. The re were no immediate complications. FINDINGS: Ultrasound images demonstrate a left pleural effusion and the catheter within the fluid. IMPRESSION: 1. Successful ultrasound-guided thoracentesis yielding 1000 mL of venkata-colored fluid. Reviewed, dictated and finalized at location A. IMPRESSION: 1. Successful ultrasound-guided thoracentesis yielding 1000 mL of venkata-colore d fluid.
[2023-09-05 12:22] LABS: Glucose Point of Care 78 mg/dl (65-105)
== END 2023-09-05 10:08 | disposition home or self-care (01) ==
PROVIDERS: Radiology Diagnostic Radiology; PCP Internal Medicine; Referring Provider Internal Medicine Hematology & Oncology; Visit Provider Internal Medicine Hematology & Oncology
DX: J90 Pleural effusion, not elsewhere classified (principal)
CPT/HCPCS: 32555; 82948

== ENCOUNTER 2023-09-21 09:59 | Outpatient (CLI) | payer MEDICARE, SELFPAY ==
--- NOTE | ~2023-09-21 | US_ITS ---
EXAMINATION: US thoracentesis DATE: 09/21/2023 11:47 INDICATION: Right pleural effusion TECHNIQUE: The procedure and its risks and benefits were discussed with the patient. Potential risks discussed included bleeding, infection, and pneumothorax. The patient understood the risks and agreed to proceed. The skin was prepped and draped in sterile fashion. 1% lidocaine was used for local anes thesia. Under ultrasound guidance, a 5 Fr catheter with trochar was advanced into the right pleural e ffusion. Fluid was aspirated. The catheter was removed, and a dressing was applied. There were no imm ediate complications. FINDINGS: Ultrasound images demonstrate a small to moderate-sized right pleural effusion and the catheter withi n the fluid. IMPRESSION: 1. Successful ultrasound-guided thoracentesis yielding 1000 mL of venkata-colored fluid. Reviewed, dictated and finalized at location A. IMPRESSION: 1. Successful ultrasound-guided thoracentesis yielding 1000 mL of venkata-colore d fluid.
--- NOTE | ~2023-09-21 | XR_ITS ---
EXAMINATION: [id number] DATE: 09/21/2023 11:48 INDICATION: Status post right thoracentesis TECHNIQUE: frontal view of the chest was obtained. COMPARISON: Chest radiograph dated 09/05/2023 FINDINGS: Left internal jugular central venous port catheter with distal tip at the superior cavoatrial junctio n. Tunneled pleural drainage catheter projects over the left lower lung. Opacities at the left lung b ase and tracking along the major fissure consistent with small left pleural effusion and associated b asilar atelectasis. Small left pleural effusion with mild left basilar atelectasis. Right suprahilar opacity likely related to reported lung cancer. Calcified nodule at the lateral right lower lung zone . No pneumothorax or residual right pleural effusion. Heart size is normal. IMPRESSION: 1. No pneumothorax or residual right pleural effusion post right thoracentesis. 2. Small left pleural effusion and associated mild left basilar atelectasis with possible left pleura l drainage catheter projecting over the left lower lung zone. 3. Right suprahilar opacity consistent with known lung cancer. Reviewed, dictated and finalized at location A. IMPRESSION: 1. No pneumothorax or residual right pleural effusion post right thoracentesis. 2. Small left pleural effusion and associated mild left basilar atelectasis wit h possible left pleural drainage catheter projecting over the left lower lung z one. 3. Right suprahilar opacity consistent with known lung cancer.
[2023-09-21 11:25] VITALS: BP 115/60; PULSE 80; RESP 20; O2SAT 94
[2023-09-21 11:40] VITALS: BP 105/55; PULSE 80; RESP 20
[2023-09-21 11:55] VITALS: BP 101/60; PULSE 78; RESP 20
[2023-09-21 12:20] VITALS: BP 112/50; PULSE 76; RESP 20
== END 2023-09-21 12:25 | disposition home or self-care (01) ==
PROVIDERS: PCP Internal Medicine; Referring Provider Internal Medicine Hematology & Oncology; Visit Provider Radiology Diagnostic Radiology
DX: J90 Pleural effusion, not elsewhere classified (principal)
CPT/HCPCS: 32555

== ENCOUNTER 2023-10-10 12:02 | Outpatient (CLI) | payer MEDICARE, SELFPAY ==
--- NOTE | ~2023-10-10 | XR_ITS ---
XR chest 2V Ordering provider: Chet Willingham MD History: 83 years Male with . lung nodule, SOB, FLUID. HX LUNG CA, CHEMO, RADIATION . Comparison: September 21, 2023 FINDINGS: MEDIASTINUM: The cardiac silhouette is not enlarged. Left Port-A-Cath with the tip overlying the supe rior vena cava.. LUNGS: No infiltrates or pneumothorax. Atelectatic changes in the lung bases with minimal effusion bi laterally. Opacity in the right apical area which is suggestive of a nodule. OTHER: No free air under the diaphragm. Degenerative the spine. IMPRESSION: Bibasilar atelectasis with minimal effusion. Nodule in the right upper lobe. Three-month follow-up advised. Reviewed, dictated and finalized at location A.
== END 2023-10-10 12:03 | disposition home or self-care (01) ==
LOC: ANHIMG 12:05
PROVIDERS: PCP Internal Medicine; Visit Provider Internal Medicine Hematology & Oncology
DX: R91.1 Solitary pulmonary nodule (principal)
CPT/HCPCS: 71046

== ENCOUNTER 2023-10-20 08:08 | Outpatient (CLI) | payer MEDICARE, SELFPAY ==
--- NOTE | ~2023-10-20 | CT_ITS ---
CT chest abdomen pelvis w con Ordering provider: Chet Willingham MD History: 83 years Male with . PLEURAL EFFUSION . Comparison: None. Technique: CT chest with IV contrast. CT abdomen and pelvis with IV and without oral contrast. FINDINGS: --VISUALIZED THORACIC INLET: Normal. --MEDIASTINUM: Aorta/coronary arteries: Mild atheromatous disease. Heart/other: The heart is not enlarged. Lymph nodes: Several with. Other: Normal. --LUNGS: Large right pleural effusion. Atelectatic changes are seen in the lung bases bilaterally und erlying fibrotic/emphysematous pleural-based nodules in the middle lobe is seen measuring 6 mm. varghese es seen in the middle lobe. Adjacent to granulomas are noted. No pulmonary masses. No infiltrates.. N o pneumothorax. Left chest tube with trace of pleural effusion. --MUSCULOSKELETAL: Soft tissues: The superficial soft tissues are normal. Bones: Age appropriate degenerative changes of the spine. Old fractures in the left lower thorax. ABD OMEN/PELVIS: --MUSCULOSKELETAL: Bones: Age appropriate degenerative changes of the spine. No suspicious bony lytic or sclerotic lesio ns. Superficial soft tissues: The superficial soft tissues are normal. --UPPER ABDOMINAL ORGANS: Liver: Normal. Gallbladder: Status post cholecystectomy. Spleen: Normal. Stomach/duodenum: Normal. Pancreas: Normal. Adrenals: Normal. Kidneys: Tiny cyst in the left kidney upper pole. --PELVIC ORGANS: The bladder shows thickened wall. Evaluation for cystitis advised. No bladder stones . Prostatic calcifications. --BOWEL AND MESENTERY: Colon: Mild diverticulosis without diverticulitis sigmoid colon. Normal appendix. Small Bowel: Normal. No obstruction. Peritoneum/mesentery: No free air or free fluid. No mesenteric lymphadenopathy. --RETROPERITONEUM: Moderate atheromatous disease of the abdominal aorta. 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 Narrowing of the left renal artery. Atherosclerotic changes at the origin of the right renal artery, superior mesenteric artery and celiac artery. No retroperitoneal lymphadenopathy. IMPRESSION: CHEST: 1. Bilateral pleural effusion larger on the right side with left chest tube. Adjacent atelectatic ch anges. 2. Underlying emphysematous changes. 3. Nodule in the middle lobe which measures 6 mm. 6 months follow-up advised. ABDOMEN/PELVIS: 1. Slight dilatation of the abdominal aorta measuring 3.3 cm. 2. Narrowing at multiple vessels originating from the abdominal aorta. 3. No evidence of appendicitis, diverticulitis or intestinal obstruction. Reviewed, dictated and finalized at location A. IMPRESSION: CHEST: 1. Bilateral pleural effusion larger on the right side with left chest tube. A djacent atelectatic changes. 2. Underlying emphysematous changes. 3. Nodule in the middle lobe which measures 6 mm. 6 months follow-up advised. ABDOMEN/PELVIS: 1. Slight dilatation of the abdominal aorta measuring 3.3 cm. 2. Narrowing at multiple vessels originating from the abdominal aorta. 3. No evidence of appendicitis, diverticulitis or intestinal obstruction.
== END 2023-10-20 08:09 | disposition home or self-care (01) ==
LOC: ANHIMG 08:11
PROVIDERS: PCP Internal Medicine; Referring Provider Nurse Practitioner Family; Visit Provider Internal Medicine Hematology & Oncology
DX: J90 Pleural effusion, not elsewhere classified (principal); C34.90 Malignant neoplasm of unspecified part of unspecified bronchus or lung; I77.811 Abdominal aortic ectasia
CPT/HCPCS: 71260; 74177; Q9967

== ENCOUNTER 2023-10-23 07:22 | Outpatient (CLI) | payer MEDICARE, SELFPAY ==
[2023-10-20 13:42] VITALS: BMI 26.4
--- NOTE | 2023-10-20 13:42 | PC.NURSE ---
Pre Radiology instructions Report to the outpatient laura lorin on date _[id number]_ at time _0830_ for procedure Time: _1030_ YOU MAY BE MONITORED AT HOSPITAL FOR UP TO 4 HOURS AFTER YOUR PROCEDURE. A visitor will be allowed to accompany the patient into the hospital. You and your visitor will be asked to self-screen and do not enter if you have any COVID symptoms. A mask is OPTIONAL within the hospital. Patients are to have no food or drink 6 hours prior to procedure time Driving will be restricted after the procedure, you must have a person to drive you home. Labs will be drawn in preop area and once reviewed, you will be taken to radiology area for procedure. When the procedure is completed, you will be taken to outpatient where you will be monitored for several hours. You may have one visitor in this area. Other than holding anti-coagulants, patient may take other medication(s) as scheduled. Prior to your appointment date patients are instructed to hold anti-coagulants after discussing with ordering provider to stop. If unable to discontinue anti-coagulants please notify radiologist. ? No aspirin or warfarin (Coumadin) for 7 days prior to the procedure. ? No clopidogrel (Plavix), ticagrelor (Brilinta), prasugrel (Effient) or dabigatran (Pradaxa) for 5 days prior to the procedure. ? No rivaroxaban (Xarelto), apixaban (Eliquis), dipyridamole (Aggrenox or Persantine) or cilostazol (Pletal) for 2 days prior to the procedure. Medications to discontinue per physician: Date to take last dose: Please leave all valuables, including medications, at home the day of procedure. The hospital will not accept responsibility for valuables. Wear comfortable, loose fitting clothing.? Follow any additional instructions given to you from ordering provider. Telephone instructions given to __Mendy/daughter__and asked if any additional questions and then verbalized understanding. Patient advised to call scheduling provider office or registration scheduling [phone] if any additional questions.
[2023-10-23] VITALS (8 sets, daily range): BP systolic 86–101; BP diastolic 45–61; PULSE 68–90; RESP 16–20; TEMP 36.1; O2SAT 95–98
--- NOTE | ~2023-10-23 | XR_ITS ---
EXAMINATION: [id number]_CR DATE: 10/23/2023 11:17 INDICATION: Right pleural effusion postthoracentesis TECHNIQUE: frontal view of the chest was obtained. COMPARISON: Chest radiograph dated 09/21/2023 FINDINGS: Left internal jugular central venous port catheter with distal tip at the superior cavoatrial junctio n. Normal drainage catheter projects of the left lower lobe. Hazy and streaky opacities at the bilateral lower lungs with blunting at the bilateral costophrenic a ngles consistent with very bilateral pleural effusions and associated bibasilar atelectasis versus le ss likely pneumonia. No pneumothorax. There are a couple subtle chronic nodular opacities in the righ t lung. Heart size is normal. IMPRESSION: 1. Very small bilateral pleural effusions with associated mild bibasilar atelectasis versus less like ly pneumonia. 2. Couple subtle small nodular opacities in the right lung likely related to known malignancy with po ssible metastatic disease. Reviewed, dictated and finalized at location A. IMPRESSION: 1. Very small bilateral pleural effusions with associated mild bibasilar atelec tasis versus less likely pneumonia. 2. Couple subtle small nodular opacities in the right lung likely related to kn own malignancy with possible metastatic disease.
--- NOTE | ~2023-10-23 | US_ITS ---
EXAMINATION: US thoracentesis DATE: 10/23/2023 11:30 INDICATION: pleural effusion TECHNIQUE: The procedure and its risks and benefits were discussed with the patient. Potential risks discussed included bleeding, infection, and pneumothorax. The patient understood the risks and agreed to proceed. The skin was prepped and draped in sterile fashion. 1% lidocaine was used for local anes thesia. Under ultrasound guidance, a 5 Fr catheter with trochar was advanced into the right pleural e ffusion. Fluid was aspirated. The catheter was removed, and a dressing was applied. There were no imm ediate complications. FINDINGS: Ultrasound images demonstrate a normal right pleural effusion and the catheter within the fluid. IMPRESSION: 1. Successful ultrasound-guided thoracentesis yielding 1100 mL of dark [id number]-[id number] fluid. Reviewed, dictated and finalized at location A. IMPRESSION: 1. Successful ultrasound-guided thoracentesis yielding 1100 mL of dark reddish -venkata-colored fluid.
[2023-10-23 09:11] LABS: Prothrombin Time 13.9 Seconds (11.1-14.7)
[2023-10-23] MEDS: DEXTROSE 50% 25 GM/50 ML SYRINGE IV PUSH (13:01)
[2023-10-23 13:23] LABS: Glucose Point of Care 35 mg/dl (65-105); Glucose Point of Care 36 mg/dl (65-105)
[2023-10-23 13:23] LABS: Glucose Point of Care 100 mg/dl (65-105)
== END 2023-10-23 13:24 | disposition home or self-care (01) ==
PROVIDERS: PCP Internal Medicine; Referring Provider Internal Medicine Hematology & Oncology; Visit Provider Radiology Diagnostic Radiology
DX: J90 Pleural effusion, not elsewhere classified (principal)
CPT/HCPCS: 32555; 36415; 82948; 85610

== ENCOUNTER 2023-11-07 16:35 | Outpatient (CLI) | payer MEDICARE, SELFPAY ==
[2023-11-07 17:09] LABS: Basophils Percent Auto 0.2 % (0.2-1.2); Eosinophils Percent Auto 0.4 % (0-4.4); Hematocrit 30.7 % (42.0-52.0); Hemoglobin 9.5 g/dL (14.0-18.0); Immature Granulocyte Percent A 1.1 % (0-0.5); Lymphocytes Percent Auto 8.9 % (18.3-44.2); Mean Corpuscular HGB Conc 30.9 g/dl (32-36); Mean Corpuscular Hemoglobin 29.1 pg (26-34); Mean Corpuscular Volume 94.2 fl (80-100); Mean Platelet Volume 9.8 fl (7.4-10.4); Monocytes Absolute Auto 0.6 K/mm3 (0.1-0.6); Monocytes Percent Auto 7.1 % (2.6-8.5); Neutrophils Absolute Auto 7.4 K/mm3 (1.3-6.7); Neutrophils Percent Auto 82.3 % (45.5-73.1); Platelet Count Result 169 k/mm3 (150-375); Red Blood Count 3.26 M/mm3 (4.6-6.20); Red Cell Distribution Width 17.8 % (11.5-14.5)
[2023-11-07 17:17] LABS: Add Urine Microscopic? YES; Alanine Aminotransferase 18 U/L (6-50); Albumin Level 3.8 g/dL (3.5-5.1); Alkaline Phosphatase 115 U/L (38-126); Anion Gap 12 mmol/L (4-12); Appearance Urine Cloudy (Clear); Aspartate Amino Transferase 24 U/L (17-59); Bacteria Urine None Seen /hpf; Bilirubin Urine Negative (Negative); Bilirubin,Total 0.3 mg/dL (0.2-1.3); Blood Urea Nitrogen 33 mg/dL (9-20); Blood Urine Negative (Negative); Calcium 8.8 mg/dL (8.4-10.2); Carbon Dioxide 23 mmol/L (22-30); Chloride 100 mmol/L (98-107); Color Urine Yellow (Yellow); Estimated Glomerular Filt Rate 34; Glucose 264 mg/dL (65-110); Glucose Urine UA 1+ mg/dL (Negative); Ketones Urine Trace mg/dL (Negative); Leukocyte Esterase Ur Negative LEU/UL (Negative); Need Manual Microscopic Reviewed; Nitrate Urine Negative (Negative); Potassium 5.1 mmol/L (3.4-5.0); Protein Urine 2+ mg/dL (Negative); RBC Urine 0-2 /hpf (0-2); Sodium 135 mmol/L (137-145); Specific Grav Ur 1.022 (1.001-1.035); Squamous Epithelial Cell Urine Few /hpf (Few); WBC Urine 0-5 /hpf (0-3); pH Urine 5.5 (5.0-9.0)
== END 2023-11-07 16:36 | disposition home or self-care (01) ==
LOC: ANHLAB 16:39
PROVIDERS: PCP Internal Medicine; Visit Provider Internal Medicine
DX: R50.9 Fever, unspecified (principal)
CPT/HCPCS: 36415; 80053; 81001; 85025; 87040

== ENCOUNTER 2023-11-15 13:34 | Inpatient (IN) | payer MEDICARE, SELFPAY ==
[2023-11-15] VITALS (9 sets, daily range): BP systolic 94–110; BP diastolic 66–74; PULSE 100–118; RESP 16–25; TEMP 36.3–36.8; O2SAT 90–95; BMI 27.2
--- NOTE | ~2023-11-15 | XR_ITS ---
EXAMINATION: XR chest 2V DATE: 11/15/2023 15:24 INDICATION: Shortness of breath TECHNIQUE: frontal and lateral views of the chest were obtained. COMPARISON: Chest radiograph dated 10/23/2023 FINDINGS: Left internal jugular central venous port catheter with distal tip at the high right atrium. Pleural drainage catheter projects of the left lower lung zone. Worsening airspace opacities in the left perihilar region. Persistent chronic right apical pleural-pa renchymal scarring and streaky atelectasis/scarring the left lower lung zone. Improvement in prior in terstitial and airspace opacities in the bilateral lower lungs. No pneumothorax or definitive pleural effusion. Moderate size is normal. IMPRESSION: 1. Increasing left perihilar opacities which could represent atelectasis or pneumonia. 2. Unchanged right apical pleural-parenchymal scarring and linear discoid atelectasis/scarring at the left lower lung zone. Reviewed, dictated and finalized at location B. IMPRESSION: 1. Increasing left perihilar opacities which could represent atelectasis or pne umonia. 2. Unchanged right apical pleural-parenchymal scarring and linear discoid atele ctasis/scarring at the left lower lung zone.
--- NOTE | 2023-11-15 14:12 | ECG_ITS ---
Test Date: 2023-11-15 14:25:10 Measurements Intervals [place] Rate: 108 P: 63 FL: 175 QRS: 51 QRSD: 94 T: 41 QT: 337 QTc: 453 Interpretive Statements SINUS TACHYCARDIA LOW QRS VOLTAGE IN PRECORDIAL LEADS BASELINE WANDER- V1, -V6 ABNORMAL ECG No previous ECG available for comparison Electronically Signed On 11-15-2023 14:39:36 CDT by Camilo Resendiz D.O.
[2023-11-15 14:59] LABS: Basophils Percent Auto 0.3 % (0.2-1.2); Eosinophils Absolute Auto 0.1 K/mm3 (0-0.3); Eosinophils Percent Auto 0.9 % (0-4.4); Hematocrit 26.8 % (42.0-52.0); Hemoglobin 8.3 g/dL (14.0-18.0); Immature Granulocyte Absolute 0.11 K/mm3 (0.00-0.031); Immature Granulocyte Percent A 1.3 % (0-0.5); Lymphocytes Absolute Auto 0.58 K/mm3 (0.9-3.2); Lymphocytes Percent Auto 6.7 % (18.3-44.2); Mean Corpuscular Volume 93.7 fl (80-100); Monocytes Absolute Auto 0.5 K/mm3 (0.1-0.6); Monocytes Percent Auto 5.2 % (2.6-8.5); Neutrophils Absolute Auto 7.5 K/mm3 (1.3-6.7); Neutrophils Percent Auto 85.6 % (45.5-73.1); Platelet Count Result 131 k/mm3 (150-375); Red Blood Count 2.86 M/mm3 (4.6-6.20); Red Cell Distribution Width 17.8 % (11.5-14.5); White Blood Count 8.7 K/mm3 (4.5-10.0)
[2023-11-15] MEDS: SODIUM CHLORIDE 0.9% IV 1,000 ML 999 ML IV CONT (15:06)
[2023-11-15 15:10] LABS: Lactic Acid Reflex 2.2 mmol/L (0.7-2.0)
[2023-11-15 15:14] LABS: INR 1.2
[2023-11-15 15:15] LABS: Partial Thromboplastin Time 39.9 Seconds (22.3-36.8)
[2023-11-15 15:24] LABS: Alanine Aminotransferase 29 U/L (6-50); Albumin Level 3.5 g/dL (3.5-5.1); Alkaline Phosphatase 97 U/L (38-126); Anion Gap 14 mmol/L (4-12); Aspartate Amino Transferase 28 U/L (17-59); Bilirubin,Total 0.3 mg/dL (0.2-1.3); Blood Urea Nitrogen 31 mg/dL (9-20); Calcium 8.7 mg/dL (8.4-10.2); Carbon Dioxide 22 mmol/L (22-30); Chloride 101 mmol/L (98-107); Estimated CRCL calculation 32 ml/min; Estimated Glomerular Filt Rate 42; Glucose 129 mg/dL (65-110); Potassium 4.5 mmol/L (3.4-5.0); Sodium 137 mmol/L (137-145)
[2023-11-15 16:25] LABS: CRP 35.4 mg/dL (<1.0)
[2023-11-15 16:40] LABS: Add Urine Microscopic? YES; Appearance Urine Cloudy (Clear); Bacteria Urine None Seen /hpf; Bilirubin Urine Negative (Negative); Blood Urine Negative (Negative); Color Urine Yellow (Yellow); Glucose Urine UA Negative (Negative); Granular Casts Urine Present /lpf; Ketones Urine Trace mg/dL (Negative); Leukocyte Esterase Ur Negative LEU/UL (Negative); Nitrate Urine Negative (Negative); Non Pathogenic Casts >20; Protein Urine 2+ mg/dL (Negative); RBC Urine 0-2 /hpf (0-2); Specific Grav Ur 1.027 (1.001-1.035); Squamous Epithelial Cell Urine Few /hpf (Few); WBC Urine 0-5 /hpf (0-3)
--- NOTE | 2023-11-15 17:49 | ED.GENADULT ---
HPI - General Adult General Chief complaint: Weakness Stated complaint: weak Time Seen by Provider: 11/15/23 14:06 History of Present Illness HPI narrative: Patient is an 83-year-old male who presents ER with weakness and cough. Ongoing over last week. Cough is productive. He feels like. It stuck in his throat/chest when his forearms. No fevers or chills or sweats. Reports he has had significant weakness and has difficulty going from sitting to standing. No chest pain or chest pressure. Patient has a PleurX catheter in the left chest for chronic pleural effusions. The been unable to drain any fluid from it over last couple of days. Reports poor oral intake. Patient received interferon for his lung cancer. Related Data Home Medications Medication Instructions Recorded Confirmed citalopram 20 mg tablet 20 mg PO DAILY 09/06/22 11/02/23 glimepiride 4 mg tablet 4 mg PO BID 09/06/22 11/02/23 lisinopril 20 mg tablet 20 mg PO DAILY 09/06/22 11/02/23 lorazepam 0.5 mg tablet 0.5 mg PO TID 09/06/22 11/02/23 metformin 1,000 mg tablet 1,000 mg PO BID 09/06/22 11/02/23 rosuvastatin 20 mg tablet 20 mg PO DAILY 09/06/22 11/02/23 insulin degludec 100 unit/mL (3 15 unit subcut HS 10/24/22 11/02/23 mL) subcutaneous pen (Tresiba FlexTouch U-100 insulin) ferrous sulfate 325 mg (65 mg 325 mg PO DAILY 04/17/23 11/02/23 iron) tablet mecobalamin (vitamin B12) 1,000 1,000 mcg PO DAILY 04/17/23 11/02/23 mcg chewable tablet (B12 Active) Allergies Allergy/AdvReac Type Severity Reaction Status Date / Time codeine AdvReac Unknown Verified 11/02/23 09:21 niacin AdvReac [place] Verified 11/02/23 09:21 Review of Systems Review of Systems: All systems reviewed & are unremarkable except as noted in HPI and below Constitutional: Constitutional: Denies chills, Reports fatigue, Denies fever(s) and Reports weakness ENT: Reports system reviewed and no additional complaints, except as documented Cardiovascular: Cardiovascular: Reports no additional cardiovascular complaints Respiratory: Respiratory: Reports cough, Reports dyspnea and Denies wheezing Gastrointestinal: Gastrointestinal: Reports no additional gastrointestinal complaints Genitourinary: Genitourinary: Reports no additional male genitourinary complaints Musculoskeletal: Musculoskeletal: Reports no additional musculoskeletal complaints [facility] Past Medical History Medical History Chronic anemia Chronic kidney disease, stage 3 Chronic obstructive pulmonary disease Chronic respiratory failure with hypoxia Colon cancer (2014) Hyperlipidemia Hypertension Non-small cell lung cancer (09/2022) Arising in the right lung status post chemo radiation, currently on immunotherapy. Obstructive sleep apnea Thrombocytopenia Tobacco abuse Type 2 diabetes mellitus Surgical History Surgical History History of bilateral cataract extraction History of cholecystectomy (2002) History of colon resection (2014) For colon cancer. History of skin graft Family History Family History Other Unknown family medical history Social History Social History Social History: Surrogate medical decision maker: Mallorie Watson, spouse. Code status: Full code. Smoking packs per day: 0.15 Smoking cigarettes per day: 3.0 Years smoked: 64 Smoking pack-years: 9.60 Smoking status: Current every day smoker Tobacco type: cigarettes Second hand tobacco smoke exposure: Yes Alcohol intake: never Substance use: never Substance use type: does not use Do You Feel Safe in your Home?: Yes Lack of Transportation: No Lack of Food: Never True Current Housing: I Have Housing Concerned About Future Housing: No Difficulty Paying Gas/Electric Bills: No
[2023-11-15 17:57] LABS: Reflex Lactic Acid Yes or No Add Lactic
[2023-11-15 18:45] LABS: Lactic Acid 1.4 mmol/L (0.7-2.0)
[2023-11-15] MEDS: AZITHROMYCIN 500 MG/NS 250 ML 500 MG/250 ML BAG 250 MG IVPB (18:46)
--- NOTE | 2023-11-15 19:22 | PC.NURSE ---
Report called to SHIREEN Ruiz. All questions answered at this time. renewable energy technician to transport pt up to [address] [place] [address].
--- NOTE | 2023-11-15 20:05 | PM.IMHP ---
H&P: HPI History of Present Illness Date/Time: 11/15/23 20:05 Chief Complaint: Weakness Narrative: 83 y/o M presents here with weakness with PMH of chronic anemia, CKD, COPD, chronic respiratory failure with hypoxia, colon cancer, HLD, non-small cell lung cancer on interferon, ROBIN, thrombocytopenia, and type 2 diabetes. The patient presents here for further evaluation of generalized weakness, decreased appetite, and productive cough. He reports onset of symptoms over the last week. He reports cough has been yielding white sputum. States he has been having chest congestion due to how thick his sputum is, reports it is so thick that he can't hardly cough it up and out. He reports recently feeling unwell, contacted [facility], and was prescribed course of Levaquin (500 mg daily) on 11/06 which he has largely completed (has one dose left) without improvement in symptoms. Patient also endorsing accompanying a reduced appetite, chills, fever (101F), and p.o. intake. He denies any associated diaphoresis, body aches, chest pain, palpitations, or dizziness. Patient had PleurX catheter placed to the left side of his chest approximately 2 months for a chronic pleural effusion at [facility]. He reports he drains it when he begins to feel short of breath and during most recent draining this past week he had no output from drain. He reports he still has to undergo thoracentesis of the right lung regularly. Receives oncology care with Tars[facility] BEJARANO and currently treated with interferon currently, previously underwent radiation and chemo. Patient has been stable/remission for the past 6-8 months. Initial VS at presentation: 98.2? F, HR 118, RR 20, 103/74, and 94% on RA ED workup showed: No leukocytosis, hemoglobin 8.3 (previously 9.5 on 11/07/2023), INR 1.2, creatinine 1.6 and GFR 42 (previously 1.9 and GFR 34 on 11/07/2023), lactic acid 2.2, CRP 35.4, and UA not consistent with UTI. CXR showed increased left perihilar opacities which could represent atelectasis or pneumonia and unchanged right apical pleural parenchymal scarring in linear discoid atelectasis/scarring at the left lower lung zone. Review of Systems Review of Systems: All systems reviewed & are unremarkable except as noted in HPI and below PMFSH Past Medical History Medical History Chronic anemia Chronic kidney disease, stage 3 Chronic obstructive pulmonary disease Chronic respiratory failure with hypoxia Colon cancer (2014) Hyperlipidemia Hypertension Non-small cell lung cancer (09/2022) Arising in the right lung status post chemo radiation, currently on immunotherapy. Obstructive sleep apnea Thrombocytopenia Tobacco abuse Type 2 diabetes mellitus Surgical History Surgical History History of bilateral cataract extraction History of cholecystectomy (2002) History of colon resection (2014) For colon cancer. History of skin graft Family History Family History Father Depression Social History Social History Social History: Surrogate medical decision maker: Mallorie Watson, spouse. Code status: Full code. Smoking packs per day: 0.15 Smoking cigarettes per day: 3.0 Years smoked: 64 Smoking pack-years: 9.60 Smoking status: Current every day smoker Tobacco type: cigarettes Second hand tobacco smoke exposure: Yes Alcohol intake: never Substance use: never Substance use type: does not use Do You Feel Safe in your Home?: Yes Lack of Transportation: No Lack of Food: Never True Current Housing: I Have Housing Concerned About Future Housing: No Difficulty Paying Gas/Electric Bills: No Difficulty Paying for Meds: No Currently Unemployed: No Education: High School Diploma/GED Difficulty w/ Childcare or Family Care: No Living a
[2023-11-15] MEDS: SODIUM CHLORIDE 0.9% IV 1,000 ML 125 ML IV CONT (20:10)
--- NOTE | 2023-11-15 20:14 | ADMGEN ---
This patient, Michele Watson, was admitted to 2 Medical Room 247-. Patient/family oriented to hospital policies and general routines including ID bracelet, bed and alarms, visiting hours, pain management, procedures, bathroom and other care routines, personal items, smoking policy, room service/diet, and visiting hours. Information on how to activate the Rapid Response Team has been discussed. Patient/Family are encouraged to report perceived risks to care and to ask questions if they do not understand what they are told or what they should do. Report received from SHIREEN Perez in ED.
[2023-11-15] MEDS: ALBUTEROL SULFATE NEB 2.5 MG/3 ML INH INHALATION (21:18)
[2023-11-15] MEDS: BUDESONIDE RESPULE NEB 0.5 MG/2 ML AMP INHALATION (21:18)
[2023-11-15] MEDS: guaiFENesin 12 HR 600 MG TABCR PO (21:52)
[2023-11-15] MEDS: LORazepam (*CRX) 0.5 MG TABLET PO (21:52)
[2023-11-15] MEDS: INSULIN GLARGINE (*BKC) 100 UNITS/ML 15 UNITS SUB-Q (21:53)
[2023-11-15 22:22] LABS: Glucose Point of Care 260 mg/dl (65-105)
[2023-11-15 22:43] LABS: Influenza A QL RT-PCR Negative (Negative); Influenza B QL RT-PCR Negative (Negative); RSV RNA, RT-PCR Negative (Negative); SARS-CoV-2 RNA PCR Negative (Negative)
[2023-11-16] VITALS (11 sets, daily range): BP systolic 95–115; BP diastolic 48–70; PULSE 70–102; RESP 18–20; TEMP 36.5–36.7; O2SAT 94–99; BMI 27.2
[2023-11-16] MEDS: SODIUM CHLORIDE 0.9% IV 1,000 ML 125 ML IV CONT ×3 (03:41→22:19)
[2023-11-16] MEDS: LEVOTHYROXINE SODIUM 50 MCG TABLET PO (05:32)
[2023-11-16 05:34] LABS: Basophils Percent Auto 0.3 % (0.2-1.2); Eosinophils Absolute Auto 0.1 K/mm3 (0-0.3); Eosinophils Percent Auto 1.6 % (0-4.4); Hematocrit 24.3 % (42.0-52.0); Hemoglobin 7.2 g/dL (14.0-18.0); Immature Granulocyte Absolute 0.09 K/mm3 (0.00-0.031); Immature Granulocyte Percent A 1.5 % (0-0.5); Lymphocytes Absolute Auto 0.49 K/mm3 (0.9-3.2); Lymphocytes Percent Auto 8.1 % (18.3-44.2); Mean Corpuscular HGB Conc 29.6 g/dl (32-36); Mean Corpuscular Hemoglobin 28.5 pg (26-34); Mean Platelet Volume 10.5 fl (7.4-10.4); Monocytes Absolute Auto 0.4 K/mm3 (0.1-0.6); Monocytes Percent Auto 5.9 % (2.6-8.5); Neutrophils Percent Auto 82.6 % (45.5-73.1); Nucleated Red Blood Cells Perc 0.3 % (0.0-0.2); Platelet Count Result 107 k/mm3 (150-375); Red Blood Count 2.53 M/mm3 (4.6-6.20); Red Cell Distribution Width 18.1 % (11.5-14.5); White Blood Count 6.1 K/mm3 (4.5-10.0)
[2023-11-16 05:52] LABS: Alanine Aminotransferase 28 U/L (6-50); Alkaline Phosphatase 89 U/L (38-126); Anion Gap 8 mmol/L (4-12); Aspartate Amino Transferase 31 U/L (17-59); Bilirubin,Total 0.1 mg/dL (0.2-1.3); Blood Urea Nitrogen 27 mg/dL (9-20); Calcium 8.3 mg/dL (8.4-10.2); Carbon Dioxide 24 mmol/L (22-30); Chloride 104 mmol/L (98-107); Estimated CRCL calculation 39 ml/min; Estimated Glomerular Filt Rate 53; Glucose 165 mg/dL (65-110); Potassium 4.1 mmol/L (3.4-5.0); Sodium 136 mmol/L (137-145)
[2023-11-16 06:37] LABS: Anisocytosis 1+; Microcytosis 1+ (NORMAL); Ovalocytes 1+; Platelet Estimate Adequate (Adequate); Schistocytes None Seen; Tear Drop Cells 1+
[2023-11-16 06:38] LABS: Hypochromasia 1+
[2023-11-16 06:42] LABS: Hemoglobin A1C 8.1 % (<5.7)
[2023-11-16] MEDS: BUDESONIDE RESPULE NEB 0.5 MG/2 ML AMP INHALATION ×2 (07:40→21:07)
[2023-11-16] MEDS: IPRATROPIUM BR 0.02% INH SOLN 0.5 MG/2.5 ML VIAL INHALATION ×2 (07:41→14:13)
[2023-11-16] MEDS: ALBUTEROL SULFATE NEB 2.5 MG/3 ML INH INHALATION ×2 (07:41→14:12)
[2023-11-16 08:21] LABS: Glucose Point of Care 160 mg/dl (65-105)
--- NOTE | 2023-11-16 08:24 | PM.IMPN ---
Progress Note: A&P Assessment and Plan (1) Sepsis: Code(s): A41.9 - Sepsis, unspecified organism Status: Acute Assessment and Plan: - meets SIRS criteria: HR, RR - lactic acid: 2.2 -> 1.4 - lactic elevated, procalcitonin added - 1 L bolus - suspected source: Pneumonia - started on ceftriaxone and azithromycin on 11/14 - blood cultures drawn on 11/14 - UA: Cloudy, 2+ protein, trace ketones (2) Pneumonia: Code(s): J18.9 - Pneumonia, unspecified organism Status: Acute Assessment and Plan: - CXR: 1. Increasing left perihilar opacities which could represent atelectasis or pneumonia. 2. Unchanged right apical pleural-parenchymal scarring and linear discoid atelectasis/scarring at the left lower lung zone. - risk factors and complicating factors: PleurX in place, recent course of Levaquin - started on ceftriaxone azithromycin - MRSA PCR negative on 06/26/2023 - Viral PCR - given patient recently completed course of Levaquin, will add pneumonia pathogens (mycoplasma, Legionella, and pneumococcal) - sputum culture if obtainable - no current supplemental O2 requirement - PT eval and treat for deconditioning due to length of illness/generalized weakness - supportive care: Nebulizers, Mucinex, Tessalon Perles, prednisone 40 mg x 5 days (suspected to have a COPD component) (3) Pleural effusion: Code(s): J90 - Pleural effusion, not elsewhere classified Status: Chronic Assessment and Plan: - PleurX placed 2 months ago, no output when patient last attempted to empty drain this past week. - CXR showing no reaccumulation of effusion (4) Adenocarcinoma, lung: Code(s): C34.90 - Malignant neoplasm of unspecified part of unspecified bronchus or lung Status: Acute Assessment and Plan: - has previously underwent chemotherapy and radiation. Reports he is in remission/stable for the past few months. On interferon for lung cancer, however he reports he has been having adverse side effects from this medication including chills and fever. Patient is due for dose tomorrow, however he would like to forego at this time. - follows with Tarsha BEJARANO (5) Chronic anemia: Code(s): D64.9 - Anemia, unspecified Status: Chronic Assessment and Plan: - Hgb 8.3 - baseline in the last year has been 9-10 - continue iron supplement - trend (6) Chronic kidney disease, stage 3: Qualifiers: Chronic kidney disease stage 3 subtype: unspecified whether 3a or 3b Qualified Code(s): N18.30 - Chronic kidney disease, stage 3 unspecified Code(s): N18.30 - Chronic kidney disease, stage 3 unspecified Status: Chronic Assessment and Plan: - creatinine 1.6 and GFR 42, previously 1.9 and GFR 34 on 11/07/2023 - IV fluids at 125 mL/hour - trend renal function - trend electrolytes, correct as needed (7) Type 2 diabetes mellitus: Code(s): E11.9 - Type 2 diabetes mellitus without complications Status: Acute Assessment and Plan: - hypoglycemia protocol - POC blood glucose ACHS - home medication: Tresiba 15 units HS, hold metformin - correct regimen ordered - moderate dose TIDWM, based off BMI - A1C 6.2% on 01/31/2023- recheck- 8.1- goal <7 - will need adjustment of his home regimen and close f/u with PCP (8) Tobacco abuse: Code(s): Z72.0 - Tobacco use Status: Acute Assessment and Plan: -used to smoke 3-4 PAS - down to 4-5 cigarettes a day - smoking cessation counselling completed Plan Diet: Heart healthy GI Prophylaxis: Not currently indicated DVT Prophylaxis: SCDs Lines: Peripheral Code Status: Full code Time Spent With Patient Time with patient: Greater than 35 minutes Subjective Date/time seen: 11/16/23 08:24 Interval history: Narrative retrieved from H/P: 83 y/o M presents here with weakness with PMH of chronic anemia, CKD, COPD, chronic respiratory failure
[2023-11-16] MEDS: guaiFENesin 12 HR 600 MG TABCR PO ×2 (08:36→20:46)
[2023-11-16] MEDS: ROSUVASTATIN 20 MG TABLET PO (08:36)
[2023-11-16] MEDS: predniSONE 20 MG TABLET 40 MG PO (08:37)
[2023-11-16] MEDS: LORazepam (*CRX) 0.5 MG TABLET PO ×3 (08:38→17:24)
[2023-11-16] MEDS: FERROUS SULFATE 325 MG TABLET DR PO (08:38)
[2023-11-16] MEDS: CITALOPRAM HYDROBROMIDE 20 MG TABLET PO (08:38)
[2023-11-16] MEDS: CYANOCOBALAMIN 1,000 MCG TABLET 1000 MCG PO (08:38)
[2023-11-16 11:40] LABS: Glucose Point of Care 338 mg/dl (65-105)
[2023-11-16] MEDS: INSULIN ASPART (*BKC) 100 UNITS/ML SUB-Q ×2 (12:31→17:24)
[2023-11-16 17:05] LABS: Glucose Point of Care 338 mg/dl (65-105)
[2023-11-16 18:34] LABS: Iron 25 ug/dL (49-181)
[2023-11-16] MEDS: AZITHROMYCIN 500 MG/NS 250 ML 500 MG/250 ML BAG 250 MG IVPB (18:40)
[2023-11-16 18:44] LABS: Percent Iron Saturation 16 % (20-50)
[2023-11-16 18:52] LABS: Procalcitonin 0.2 ng/mL
[2023-11-16] MEDS: INSULIN HUMAN REGULAR (*BKC) 100 UNITS/ML 12 UNITS SUB-Q (20:45)
[2023-11-16] MEDS: INSULIN GLARGINE (*BKC) 100 UNITS/ML 15 UNITS SUB-Q (20:46)
[2023-11-16] MEDS: IPRATROPIUM 0.5 MG/ALBUTEROL SULFATE 2.5 MG AMPUL.NEB 3 ML INHALATION (21:07)
[2023-11-16 21:23] LABS: Glucose Point of Care 441 mg/dl (65-105)
[2023-11-17] VITALS (11 sets, daily range): BP systolic 107–113; BP diastolic 70–71; PULSE 78–94; RESP 18–20; TEMP 36.5; O2SAT 92–97
[2023-11-17] MEDS: SODIUM CHLORIDE 0.9% IV 1,000 ML 125 ML IV CONT ×2 (06:04→16:27)
[2023-11-17] MEDS: LEVOTHYROXINE SODIUM 50 MCG TABLET PO (06:04)
[2023-11-17] MEDS: IPRATROPIUM 0.5 MG/ALBUTEROL SULFATE 2.5 MG AMPUL.NEB 3 ML INHALATION ×3 (07:05→20:58)
[2023-11-17 08:04] LABS: Glucose Point of Care 233 mg/dl (65-105)
--- NOTE | 2023-11-17 08:10 | PM.IMPN ---
Progress Note: A&P Assessment and Plan (1) Sepsis: Code(s): A41.9 - Sepsis, unspecified organism Status: Acute Assessment and Plan: - meets SIRS criteria: HR, RR - lactic acid: 2.2 -> 1.4 - lactic elevated, procalcitonin added - 1 L bolus - suspected source: Pneumonia - started on ceftriaxone and azithromycin on 11/14 - blood cultures drawn on 11/14 - UA: Cloudy, 2+ protein, trace ketones (2) Pneumonia: Code(s): J18.9 - Pneumonia, unspecified organism Status: Acute Assessment and Plan: - CXR: 1. Increasing left perihilar opacities which could represent atelectasis or pneumonia. 2. Unchanged right apical pleural-parenchymal scarring and linear discoid atelectasis/scarring at the left lower lung zone. - risk factors and complicating factors: PleurX in place, recent course of Levaquin - started on ceftriaxone azithromycin - MRSA PCR negative on 06/26/2023 - Viral PCR - given patient recently completed course of Levaquin, will add pneumonia pathogens (mycoplasma, Legionella, and pneumococcal) - sputum culture if obtainable - no current supplemental O2 requirement - PT eval and treat for deconditioning due to length of illness/generalized weakness - supportive care: Nebulizers, Mucinex, Tessalon Perles, prednisone 40 mg x 5 days (suspected to have a COPD component) - 9.13- able to titrate o2 down to 2l now (from 3)- continue to wean down as tolerated (3) Pleural effusion: Code(s): J90 - Pleural effusion, not elsewhere classified Status: Chronic Assessment and Plan: - PleurX placed 2 months ago, no output when patient last attempted to empty drain this past week. - CXR showing no reaccumulation of effusion - [facility] to ensure no effusion - he is clinically improving now- no need to do CT at this time (4) Adenocarcinoma, lung: Code(s): C34.90 - Malignant neoplasm of unspecified part of unspecified bronchus or lung Status: Acute Assessment and Plan: - has previously underwent chemotherapy and radiation. Reports he is in remission/stable for the past few months. On interferon for lung cancer, however he reports he has been having adverse side effects from this medication including chills and fever. Patient is due for dose tomorrow, however he would like to forego at this time. - follows with Tarsha BEJARANO (5) Chronic anemia: Code(s): D64.9 - Anemia, unspecified Status: Chronic Assessment and Plan: - Hgb 8.3 - baseline in the last year has been 9-10 - continue iron supplement - trend - iron studies done- will order IV iron - stool occult blood is ordered (6) Chronic kidney disease, stage 3: Qualifiers: Chronic kidney disease stage 3 subtype: unspecified whether 3a or 3b Qualified Code(s): N18.30 - Chronic kidney disease, stage 3 unspecified Code(s): N18.30 - Chronic kidney disease, stage 3 unspecified Status: Chronic Assessment and Plan: - creatinine 1.6 and GFR 42, previously 1.9 and GFR 34 on 11/07/2023 - IV fluids at 125 mL/hour - trend renal function - trend electrolytes, correct as needed (7) Type 2 diabetes mellitus: Code(s): E11.9 - Type 2 diabetes mellitus without complications Status: Acute Assessment and Plan: - hypoglycemia protocol - POC blood glucose ACHS - home medication: Tresiba 15 units HS, hold metformin - correct regimen ordered - moderate dose TIDWM, based off BMI - A1C 6.2% on 01/31/2023- recheck- 8.1- goal <7 - will need adjustment of his home regimen and close f/u with PCP (8) Tobacco abuse: Code(s): Z72.0 - Tobacco use Status: Acute Assessment and Plan: -used to smoke 3-4 PAS - down to 4-5 cigarettes a day - smoking cessation counselling completed Plan Diet: Heart healthy GI Prophylaxis: Not currently indicated DVT Prophylaxis: SCDs Lines: Peripheral Code S
[2023-11-17 09:17] LABS: Hematocrit 24.4 % (42.0-52.0); Hemoglobin 7.1 g/dL (14.0-18.0); Mean Corpuscular HGB Conc 29.1 g/dl (32-36); Mean Corpuscular Volume 96.1 fl (80-100); Mean Platelet Volume 10.4 fl (7.4-10.4); Platelet Count Result 107 k/mm3 (150-375); Red Blood Count 2.54 M/mm3 (4.6-6.20); Red Cell Distribution Width 17.5 % (11.5-14.5); White Blood Count 4.8 K/mm3 (4.5-10.0)
[2023-11-17 09:27] LABS: Anion Gap 9 mmol/L (4-12); Blood Urea Nitrogen 25 mg/dL (9-20); Calcium 8.1 mg/dL (8.4-10.2); Carbon Dioxide 24 mmol/L (22-30); Chloride 105 mmol/L (98-107); Estimated CRCL calculation 45 ml/min; Estimated Glomerular Filt Rate > 60; Glucose 228 mg/dL (65-110); Potassium 3.9 mmol/L (3.4-5.0); Sodium 138 mmol/L (137-145)
[2023-11-17] MEDS: LORazepam (*CRX) 0.5 MG TABLET PO ×3 (09:55→18:21)
[2023-11-17] MEDS: ROSUVASTATIN 20 MG TABLET PO (09:55)
[2023-11-17] MEDS: predniSONE 20 MG TABLET 40 MG PO (09:55)
[2023-11-17] MEDS: CITALOPRAM HYDROBROMIDE 20 MG TABLET PO (09:55)
[2023-11-17] MEDS: CYANOCOBALAMIN 1,000 MCG TABLET 1000 MCG PO (09:55)
[2023-11-17] MEDS: guaiFENesin 12 HR 600 MG TABCR PO ×2 (09:55→20:10)
[2023-11-17] MEDS: FERROUS SULFATE 325 MG TABLET DR PO (09:55)
[2023-11-17] MEDS: INSULIN ASPART (*BKC) 100 UNITS/ML SUB-Q ×3 (09:56→18:22)
[2023-11-17 11:03] LABS: IFOB Positive Control Positive; Immunochemical Fecal Occult Bl Negative (N)
[2023-11-17] MEDS: IRON SUCROSE COMPLEX 200 MG in SODIUM CHLORIDE 0.9% IV 100 ML 220 MG IVPB (12:10)
[2023-11-17 12:14] LABS: Glucose Point of Care 226 mg/dl (65-105)
[2023-11-17 16:58] LABS: Glucose Point of Care 326 mg/dl (65-105)
[2023-11-17] MEDS: AZITHROMYCIN 500 MG/NS 250 ML 500 MG/250 ML BAG 250 MG IVPB (19:09)
[2023-11-17] MEDS: BUDESONIDE RESPULE NEB 0.5 MG/2 ML AMP INHALATION (20:58)
[2023-11-17] MEDS: INSULIN GLARGINE (*BKC) 100 UNITS/ML 15 UNITS SUB-Q (22:35)
[2023-11-18] VITALS (16 sets, daily range): BP systolic 106–146; BP diastolic 49–86; PULSE 85–104; RESP 16–22; TEMP 36.3–36.6; O2SAT 91–97
[2023-11-18 02:38] LABS: Glucose Point of Care 354 mg/dl (65-105)
[2023-11-18 05:33] LABS: Hematocrit 22.9 % (42.0-52.0); Immature Platelet Fraction Pct 3.4 % (0.9-11.2); Mean Corpuscular HGB Conc 30.1 g/dl (32-36); Mean Corpuscular Hemoglobin 28.8 pg (26-34); Mean Corpuscular Volume 95.4 fl (80-100); Mean Platelet Volume 10.3 fl (7.4-10.4); Platelet Count Result 106 k/mm3 (150-375); Red Cell Distribution Width 17.6 % (11.5-14.5); White Blood Count 4.3 K/mm3 (4.5-10.0)
[2023-11-18 05:34] LABS: Hemoglobin 6.9 g/dL (14.0-18.0)
[2023-11-18] MEDS: LEVOTHYROXINE SODIUM 50 MCG TABLET PO (05:43)
[2023-11-18 05:53] LABS: Anion Gap 11 mmol/L (4-12); Blood Urea Nitrogen 24 mg/dL (9-20); Calcium 8.4 mg/dL (8.4-10.2); Carbon Dioxide 21 mmol/L (22-30); Chloride 104 mmol/L (98-107); Estimated CRCL calculation 45 ml/min; Estimated Glomerular Filt Rate > 60; Glucose 311 mg/dL (65-110); Potassium 4.3 mmol/L (3.4-5.0); Sodium 136 mmol/L (137-145)
--- NOTE | 2023-11-18 07:27 | PM.IMPN ---
Progress Note: A&P Assessment and Plan (1) Sepsis: Code(s): A41.9 - Sepsis, unspecified organism Status: Acute Assessment and Plan: - meets SIRS criteria: HR, RR - lactic acid: 2.2 -> 1.4 - lactic elevated, procalcitonin added - 1 L bolus - suspected source: Pneumonia - started on ceftriaxone and azithromycin on 11/14 - blood cultures drawn on 11/14 - UA: Cloudy, 2+ protein, trace ketones (2) Pneumonia: Code(s): J18.9 - Pneumonia, unspecified organism Status: Acute Assessment and Plan: - CXR: 1. Increasing left perihilar opacities which could represent atelectasis or pneumonia. 2. Unchanged right apical pleural-parenchymal scarring and linear discoid atelectasis/scarring at the left lower lung zone. - risk factors and complicating factors: PleurX in place, recent course of Levaquin - started on ceftriaxone azithromycin - MRSA PCR negative on 06/26/2023 - Viral PCR - given patient recently completed course of Levaquin, will add pneumonia pathogens (mycoplasma, Legionella, and pneumococcal) - sputum culture if obtainable - no current supplemental O2 requirement - PT eval and treat for deconditioning due to length of illness/generalized weakness - supportive care: Nebulizers, Mucinex, Tessalon Perles, prednisone 40 mg x 5 days (suspected to have a COPD component) - 11/16- able to titrate o2 down to 2l now (from 3)- continue to wean down as tolerated (3) Pleural effusion: Code(s): J90 - Pleural effusion, not elsewhere classified Status: Chronic Assessment and Plan: - PleurX placed 2 months ago, no output when patient last attempted to empty drain this past week. - CXR showing no reaccumulation of effusion - [facility] to ensure no effusion - he is clinically improving now- no need to do CT at this time (4) Adenocarcinoma, lung: Code(s): C34.90 - Malignant neoplasm of unspecified part of unspecified bronchus or lung Status: Acute Assessment and Plan: - has previously underwent chemotherapy and radiation. Reports he is in remission/stable for the past few months. On interferon for lung cancer, however he reports he has been having adverse side effects from this medication including chills and fever. Patient is due for dose tomorrow, however he would like to forego at this time. - follows with Tarsha BEJARANO (5) Chronic anemia: Code(s): D64.9 - Anemia, unspecified Status: Chronic Assessment and Plan: - Hgb 8.3 - baseline in the last year has been 9-10 - continue iron supplement - trend - iron studies done- will order IV iron - stool occult blood is ordered 11/17- stool occult negative hg 6.9- will order 1 unit of PRBC - recheck hg 1 h after transfusion (6) Chronic kidney disease, stage 3: Qualifiers: Chronic kidney disease stage 3 subtype: unspecified whether 3a or 3b Qualified Code(s): N18.30 - Chronic kidney disease, stage 3 unspecified Code(s): N18.30 - Chronic kidney disease, stage 3 unspecified Status: Chronic Assessment and Plan: - creatinine 1.6 and GFR 42, previously 1.9 and GFR 34 on 11/07/2023 - IV fluids at 125 mL/hour - trend renal function - trend electrolytes, correct as needed (7) Type 2 diabetes mellitus: Code(s): E11.9 - Type 2 diabetes mellitus without complications Status: Acute Assessment and Plan: - hypoglycemia protocol - POC blood glucose ACHS - home medication: Tresiba 15 units HS, hold metformin - correct regimen ordered - moderate dose TIDWM, based off BMI - A1C 6.2% on 01/31/2023- recheck- 8.1- goal <7 - will need adjustment of his home regimen and close f/u with PCP - BS elevated as on prednisone - will increase lantus to 17 units at hs and continue ss (8) Tobacco abuse: Code(s): Z72.0 - Tobacco use Status: Acute Assessment and Plan: -used to smoke 3-4 PAS - down to
[2023-11-18] MEDS: IPRATROPIUM 0.5 MG/ALBUTEROL SULFATE 2.5 MG AMPUL.NEB 3 ML INHALATION ×3 (07:53→20:09)
[2023-11-18] MEDS: BUDESONIDE RESPULE NEB 0.5 MG/2 ML AMP INHALATION ×2 (07:53→20:09)
[2023-11-18 08:05] LABS: Glucose Point of Care 231 mg/dl (65-105)
[2023-11-18] MEDS: CYANOCOBALAMIN 1,000 MCG TABLET 1000 MCG PO (10:08)
[2023-11-18] MEDS: predniSONE 20 MG TABLET 40 MG PO (10:08)
[2023-11-18] MEDS: guaiFENesin 12 HR 600 MG TABCR PO ×2 (10:09→22:07)
[2023-11-18] MEDS: CITALOPRAM HYDROBROMIDE 20 MG TABLET PO (10:09)
[2023-11-18] MEDS: ROSUVASTATIN 20 MG TABLET PO (10:09)
[2023-11-18] MEDS: LORazepam (*CRX) 0.5 MG TABLET PO ×3 (10:09→17:20)
[2023-11-18] MEDS: FERROUS SULFATE 325 MG TABLET DR PO (10:10)
[2023-11-18] MEDS: INSULIN ASPART (*BKC) 100 UNITS/ML SUB-Q ×2 (10:12→17:20)
[2023-11-18] MEDS: SODIUM CHLORIDE 0.9% IV 250 ML 100 ML IV CONT (11:30)
[2023-11-18 11:53] LABS: Glucose Point of Care 405 mg/dl (65-105)
[2023-11-18] MEDS: INSULIN ASPART (*BKC) 100 UNITS/ML 10 UNITS SUB-Q (12:20)
[2023-11-18 16:59] LABS: Glucose Point of Care 378 mg/dl (65-105)
[2023-11-18 18:24] LABS: Hematocrit 24.5 % (42.0-52.0); Hemoglobin 7.8 g/dL (14.0-18.0)
[2023-11-18] MEDS: ACETAMINOPHEN 325 MG TABLET 650 MG PO (18:29)
[2023-11-18] MEDS: AZITHROMYCIN 500 MG/NS 250 ML 500 MG/250 ML BAG 250 MG IVPB (18:31)
[2023-11-18] MEDS: INSULIN GLARGINE (*BKC) 100 UNITS/ML 17 UNITS SUB-Q (22:03)
[2023-11-18] MEDS: INSULIN HUMAN REGULAR (*BKC) 100 UNITS/ML 13 UNITS SUB-Q (22:04)
[2023-11-18 22:35] LABS: Glucose Point of Care 418 mg/dl (65-105)
[2023-11-18 22:35] LABS: Glucose Point of Care 452 mg/dl (65-105)
[2023-11-19 00:39] LABS: Glucose Point of Care 345 mg/dl (65-105)
[2023-11-19 04:25] VITALS: BP 128/61; PULSE 68; RESP 20; TEMP 36.9; O2SAT 98
[2023-11-19] MEDS: LEVOTHYROXINE SODIUM 50 MCG TABLET PO (06:06)
[2023-11-19] MEDS: BUDESONIDE RESPULE NEB 0.5 MG/2 ML AMP INHALATION (07:27)
[2023-11-19] MEDS: IPRATROPIUM 0.5 MG/ALBUTEROL SULFATE 2.5 MG AMPUL.NEB 3 ML INHALATION ×2 (07:27→14:09)
[2023-11-19 07:28] VITALS: PULSE 74; RESP 18; O2SAT 96
[2023-11-19 07:45] VITALS: PULSE 80; RESP 18
[2023-11-19 07:50] LABS: Glucose Point of Care 171 mg/dl (65-105)
--- NOTE | 2023-11-19 08:09 | PM.IMPN ---
Progress Note: A&P Assessment and Plan (1) Sepsis: Code(s): A41.9 - Sepsis, unspecified organism Status: Acute Assessment and Plan: - meets SIRS criteria: HR, RR - lactic acid: 2.2 -> 1.4 - lactic elevated, procalcitonin added - 1 L bolus - suspected source: Pneumonia - started on ceftriaxone and azithromycin on 11/14 - blood cultures drawn on 11/14 - UA: Cloudy, 2+ protein, trace ketones (2) Pneumonia: Code(s): J18.9 - Pneumonia, unspecified organism Status: Acute Assessment and Plan: - CXR: 1. Increasing left perihilar opacities which could represent atelectasis or pneumonia. 2. Unchanged right apical pleural-parenchymal scarring and linear discoid atelectasis/scarring at the left lower lung zone. - risk factors and complicating factors: PleurX in place, recent course of Levaquin - started on ceftriaxone azithromycin - MRSA PCR negative on 06/26/2023 - Viral PCR - given patient recently completed course of Levaquin, will add pneumonia pathogens (mycoplasma, Legionella, and pneumococcal) - sputum culture if obtainable - no current supplemental O2 requirement - PT eval and treat for deconditioning due to length of illness/generalized weakness - supportive care: Nebulizers, Mucinex, Tessalon Perles, prednisone 40 mg x 5 days (suspected to have a COPD component) - 11/16- able to titrate o2 down to 2l now (from 3)- continue to wean down as tolerated (3) Pleural effusion: Code(s): J90 - Pleural effusion, not elsewhere classified Status: Chronic Assessment and Plan: - PleurX placed 2 months ago, no output when patient last attempted to empty drain this past week. - CXR showing no reaccumulation of effusion - [facility] to ensure no effusion - he is clinically improving now- no need to do CT at this time (4) Adenocarcinoma, lung: Code(s): C34.90 - Malignant neoplasm of unspecified part of unspecified bronchus or lung Status: Acute Assessment and Plan: - has previously underwent chemotherapy and radiation. Reports he is in remission/stable for the past few months. On interferon for lung cancer, however he reports he has been having adverse side effects from this medication including chills and fever. Patient is due for dose tomorrow, however he would like to forego at this time. - follows with Tasrha BEJARANO (5) Chronic anemia: Code(s): D64.9 - Anemia, unspecified Status: Chronic Assessment and Plan: - Hgb 8.3 - baseline in the last year has been 9-10 - continue iron supplement - trend - iron studies done- will order IV iron - stool occult blood is ordered 11/17- stool occult negative hg 6.9- will order 1 unit of PRBC - recheck hg 1 h after transfusion (6) Chronic kidney disease, stage 3: Qualifiers: Chronic kidney disease stage 3 subtype: unspecified whether 3a or 3b Qualified Code(s): N18.30 - Chronic kidney disease, stage 3 unspecified Code(s): N18.30 - Chronic kidney disease, stage 3 unspecified Status: Chronic Assessment and Plan: - creatinine 1.6 and GFR 42, previously 1.9 and GFR 34 on 11/07/2023 - IV fluids at 125 mL/hour - trend renal function - trend electrolytes, correct as needed - will stop IV fluids as eating and drinking well - monitor I/O (7) Type 2 diabetes mellitus: Code(s): E11.9 - Type 2 diabetes mellitus without complications Status: Acute Assessment and Plan: - hypoglycemia protocol - POC blood glucose ACHS - home medication: Tresiba 15 units HS, hold metformin - correct regimen ordered - moderate dose TIDWM, based off BMI - A1C 6.2% on 01/31/2023- recheck- 8.1- goal <7 - will need adjustment of his home regimen and close f/u with PCP - BS elevated as on prednisone - will increase lantus to 17 units at hs and continue ss - BS elevated due to prednisone - will add base insulin to meals in addition
[2023-11-19 08:42] LABS: Hematocrit 28.2 % (42.0-52.0); Hemoglobin 8.8 g/dL (14.0-18.0); Mean Corpuscular HGB Conc 31.2 g/dl (32-36); Mean Corpuscular Hemoglobin 28.8 pg (26-34); Mean Corpuscular Volume 92.2 fl (80-100); Mean Platelet Volume 10.1 fl (7.4-10.4); Platelet Count Result 105 k/mm3 (150-375); Red Blood Count 3.06 M/mm3 (4.6-6.20); Red Cell Distribution Width 17.2 % (11.5-14.5)
[2023-11-19 08:49] LABS: Anion Gap 10 mmol/L (4-12); Blood Urea Nitrogen 25 mg/dL (9-20); Calcium 8.4 mg/dL (8.4-10.2); Carbon Dioxide 24 mmol/L (22-30); Chloride 102 mmol/L (98-107); Estimated CRCL calculation 50 ml/min; Estimated Glomerular Filt Rate > 60; Glucose 167 mg/dL (65-110); Potassium 3.8 mmol/L (3.4-5.0); Sodium 136 mmol/L (137-145)
[2023-11-19] MEDS: CITALOPRAM HYDROBROMIDE 20 MG TABLET PO (09:05)
[2023-11-19] MEDS: ROSUVASTATIN 20 MG TABLET PO (09:05)
[2023-11-19] MEDS: CYANOCOBALAMIN 1,000 MCG TABLET 1000 MCG PO (09:05)
[2023-11-19] MEDS: guaiFENesin 12 HR 600 MG TABCR PO (09:05)
[2023-11-19 09:06] VITALS: O2SAT 96
[2023-11-19] MEDS: predniSONE 20 MG TABLET 40 MG PO (09:06)
[2023-11-19] MEDS: LORazepam (*CRX) 0.5 MG TABLET PO ×2 (09:06→12:28)
[2023-11-19] MEDS: INSULIN ASPART (*BKC) 100 UNITS/ML SUB-Q ×3 (09:15→12:28)
[2023-11-19 12:09] LABS: Glucose Point of Care 326 mg/dl (65-105)
--- NOTE | 2023-11-19 13:33 | PM.DS ---
DS: Admitting Diagnosis Discharge Date 11/18 Admitting Diagnosis sob DS: Discharge Diagnosis Discharge Diagnosis (1) Sepsis: Code(s): A41.9 - Sepsis, unspecified organism Status: Acute Assessment and Plan: - meets SIRS criteria: HR, RR - lactic acid: 2.2 -> 1.4 - lactic elevated, procalcitonin added - 1 L bolus - suspected source: Pneumonia - started on ceftriaxone and azithromycin on 11/14 - blood cultures drawn on 11/14-negative - UA: Cloudy, 2+ protein, trace ketones (2) Pneumonia: Code(s): J18.9 - Pneumonia, unspecified organism Status: Acute Assessment and Plan: - CXR: 1. Increasing left perihilar opacities which could represent atelectasis or pneumonia. 2. Unchanged right apical pleural-parenchymal scarring and linear discoid atelectasis/scarring at the left lower lung zone. - risk factors and complicating factors: PleurX in place, recent course of Levaquin - started on ceftriaxone azithromycin - MRSA PCR negative on 06/26/2023 - Viral PCR - given patient recently completed course of Levaquin, will add pneumonia pathogens (mycoplasma, Legionella, and pneumococcal) - sputum culture if obtainable - no current supplemental O2 requirement - PT eval and treat for deconditioning due to length of illness/generalized weakness - supportive care: Nebulizers, Mucinex, Tessalon Perles, prednisone 40 mg x 5 days (suspected to have a COPD component) - 11/16- able to titrate o2 down to 2l now (from 3)- continue to wean down as tolerated 11/17 continue antibiotics - will swicth to po and send home remainign doses - 2 more days of steroids- will send rx (3) Pleural effusion: Code(s): J90 - Pleural effusion, not elsewhere classified Status: Chronic Assessment and Plan: - PleurX placed 2 months ago, no output when patient last attempted to empty drain this past week. - CXR showing no reaccumulation of effusion - per daughter, [facility] CT done to ensure no effusion - he is clinically improving now- no need to do CT at this time (4) Adenocarcinoma, lung: Code(s): C34.90 - Malignant neoplasm of unspecified part of unspecified bronchus or lung Status: Acute Assessment and Plan: - has previously underwent chemotherapy and radiation. Reports he is in remission/stable for the past few months. On interferon for lung cancer, however he reports he has been having adverse side effects from this medication including chills and fever. Patient is due for dose tomorrow, however he would like to forego at this time. - follows with Tarsha BEJARANO (5) Chronic anemia: Code(s): D64.9 - Anemia, unspecified Status: Chronic Assessment and Plan: - Hgb 8.3 - baseline in the last year has been 9-10 - continue iron supplement - trend - iron studies done- will order IV iron - stool occult blood is ordered 11/17- stool occult negative hg 6.9- will order 1 unit of PRBC - recheck hg 1 h after transfusion - stable- will need a close f/u with PCP within a week for recheck (6) Chronic kidney disease, stage 3: Qualifiers: Chronic kidney disease stage 3 subtype: unspecified whether 3a or 3b Qualified Code(s): N18.30 - Chronic kidney disease, stage 3 unspecified Code(s): N18.30 - Chronic kidney disease, stage 3 unspecified Status: Chronic Assessment and Plan: - creatinine 1.6 and GFR 42, previously 1.9 and GFR 34 on 11/07/2023 - IV fluids at 125 mL/hour - trend renal function - trend electrolytes, correct as needed - will stop IV fluids as eating and drinking well - monitor I/O (7) Type 2 diabetes mellitus: Code(s): E11.9 - Type 2 diabetes mellitus without complications Status: Acute Assessment and Plan: - hypoglycemia protocol - POC blood glucose ACHS - home medication: Tresiba 15 units HS, hold metformin - correct regimen ordered - moderate dose TIDWM, based off BMI - A1C 6.2% on
[2023-11-19 14:09] VITALS: PULSE 84; RESP 18
[2023-11-19 14:17] VITALS: PULSE 88; RESP 18
[2023-11-20 18:13] LABS: Pneumococcal Antigen Urine NOT DETECTED
[2023-11-20 18:42] LABS: Mycoplasma IgM Antibody Titer 460 U/mL
[2023-11-23 01:32] LABS: Legionella pneumophila Ag Ur NOT DETECTED
== END 2023-11-19 14:43 | disposition home or self-care (01) | DRG 871 ==
LOC: ANHED 18:43 → ANH2MED 19:13
PROVIDERS: Nurse Practitioner; Student in an Organized Health Care Education/Training Program; Admitting Provider Internal Medicine; Emergency Provider Emergency Medicine; PCP Internal Medicine; Visit Provider Internal Medicine
DX: A41.9 Sepsis, unspecified organism (principal); J18.9 Pneumonia, unspecified organism; C34.90 Malignant neoplasm of unspecified part of unspecified bronchus or lung; J96.11 Chronic respiratory failure with hypoxia; J44.0 Chronic obstructive pulmonary disease with (acute) lower respiratory infection; D63.0 Anemia in neoplastic disease; D69.6 Thrombocytopenia, unspecified; E78.5 Hyperlipidemia, unspecified; E11.22 Type 2 diabetes mellitus with diabetic chronic kidney disease; F17.210 Nicotine dependence, cigarettes, uncomplicated; G47.33 Obstructive sleep apnea (adult) (pediatric); I12.9 Hypertensive chronic kidney disease with stage 1 through stage 4 chronic kidney disease, or unspecified chronic kidney disease; J44.9 Chronic obstructive pulmonary disease, unspecified; N18.30 Chronic kidney disease, stage 3 unspecified; Z79.84 Long term (current) use of oral hypoglycemic drugs; Z79.4 Long term (current) use of insulin; Z20.822 Contact with and (suspected) exposure to COVID-19; Z85.038 Personal history of other malignant neoplasm of large intestine; Z92.21 Personal history of antineoplastic chemotherapy; Z92.3 Personal history of irradiation; Z90.49 Acquired absence of other specified parts of digestive tract
CPT/HCPCS: 36415; 36430; 71046; 80048; 80053; 81001; 82274; 82948; 83036; 83540; 83550; 83605; 84145; 85014; 85018; 85025; 85027; 85055; 85610; 85730; 86140; 86738; 86850; 86900; 86901; 86923; 87040; 87070; 87205; 87449; 87637; 87899; 93005; 94640; 96361; 96365; 96367; 97110; 97161; 97530; 99285; A9270; G0378; J0456; J0696; J1756; J1815; J7030; J7050; J7512; P9016

== ENCOUNTER 2023-11-30 09:23 | Outpatient (CLI) | payer MEDICARE, SELFPAY ==
[2023-11-30 11:03] LABS: Iron 48 ug/dL (49-181)
[2023-11-30 11:13] LABS: Percent Iron Saturation 20 % (20-50)
[2023-11-30 12:11] LABS: Folic Acid 4.6 ng/mL (2.76->20)
== END 2023-11-30 09:24 | disposition home or self-care (01) ==
PROVIDERS: PCP Internal Medicine; Visit Provider Internal Medicine Hematology & Oncology
DX: C34.90 Malignant neoplasm of unspecified part of unspecified bronchus or lung (principal)
CPT/HCPCS: 36415; 80047; 80053; 82607; 82728; 82746; 83540; 83550; 85025

== ENCOUNTER 2023-12-18 13:01 | Outpatient (CLI) | payer MEDICARE, SELFPAY ==
--- NOTE | ~2023-12-18 | CT_ITS ---
CT Scan of the Chest without Contrast: Clinical Indication: Lung cancer, effusions, shortness of breath Technique: Contiguous sections were acquired throughout the chest without intravenous contrast. Dose reduction technique was used on this scan by utilizing automated exposure control and iterative recon struction technique. The dose-length product (DLP) was 316.88 mGy-cm. COMPARISON: 10/20/2023 Findings: There is no evidence of any significant mediastinal, hilar or axillary lymphadenopathy. Coronary angela ry calcifications are present.. No pericardial effusion. Moderate right pleural effusion present, probably partially loculated, stable from prior exam. Smallb ore left basilar chest tube remains in place, without significant left pleural effusion. There is stable irregular airspace nodular opacities in the right upper lobe, with probable postopera tive change. There is new patchy, irregular airspace opacities in the left upper lobe, specially but and mediastinum, suggestive of infectious/inflammatory process and possibly atelectatic change. There is right basilar atelectatic change, similar to prior exam. Advanced emphysema present. There is new irregular patchy airspace consolidation the right middle lobe.. Images through the upper abdomen rev eal no abnormalities. Impression: New areas of patchy, irregular space consolidation the right middle lobe and left upper lobe. Finding s are suspicious for infectious/inflammatory process, though progression of neoplastic disease is not completely excluded. Continued follow-up advised. Stable moderate loculated right pleural effusion. Stable small bore left basilar chest tube without s ignificant effusion. Additional small irregular nodular opacities in the right upper lobe are stable from prior exam, poss ibly representing postoperative change and/or treated disease. Advanced emphysema. Reviewed, dictated and finalized at location M. Impression: New areas of patchy, irregular space consolidation the right middle lobe and le ft upper lobe. Findings are suspicious for infectious/inflammatory process, tho ugh progression of neoplastic disease is not completely excluded. Continued fol low-up advised. Stable moderate loculated right pleural effusion. Stable small bore left basila r chest tube without significant effusion. Additional small irregular nodular opacities in the right upper lobe are stable from prior exam, possibly representing postoperative change and/or treated dis ease. Advanced emphysema.
== END 2023-12-18 13:02 | disposition home or self-care (01) ==
PROVIDERS: PCP Internal Medicine; Visit Provider Internal Medicine Critical Care Medicine
DX: C34.90 Malignant neoplasm of unspecified part of unspecified bronchus or lung (principal); J43.9 Emphysema, unspecified
CPT/HCPCS: 71250

== ENCOUNTER 2024-01-01 08:35 | Inpatient (IN) | payer MEDICARE, SELFPAY ==
[2024-01-01] VITALS (35 sets, daily range): BP systolic 110–131; BP diastolic 60–71; PULSE 76–129; RESP 8–30; TEMP 36.6–37.3; O2SAT 88–97; BMI 26.6
--- NOTE | ~2024-01-01 | XR_ITS ---
EXAMINATION: XR chest 1V portable DATE: 01/01/2024 09:07 INDICATION: Shortness of breath TECHNIQUE: frontal view of the chest was obtained. COMPARISON: Chest radiograph dated 11/15/[address] dated 12/18/2023 and 10/20/2023 FINDINGS: Small right pleural effusion with blunting at costophrenic angle and which tracks along the lateral a spect of the major fissure which does not appear significantly changed compared with the most recent chest CT. Unchanged pattern of architectural distortion with linear and patchy airspace opacities sca ttered throughout both lungs consistent with atelectasis/scarring but which has progressed in the int erval between the prior to CT studies raising possibility of superimposed pneumonia or malignancy. He art size is normal. Left internal jugular central venous port catheter with distal tip in the right a trium. IMPRESSION: 1. Minimal recent change in architectural distortion and scattered airspace opacities throughout both lungs consistent with atelectasis/scarring potentially with superimposed pneumonia or malignancy. 2. Unchanged small right pleural effusion. Reviewed, dictated and finalized at location A. IMPRESSION: 1. Minimal recent change in architectural distortion and scattered airspace opa cities throughout both lungs consistent with atelectasis/scarring potentially w ith superimposed pneumonia or malignancy. 2. Unchanged small right pleural effusion.
--- NOTE | ~2024-01-01 | XR_ITS ---
EXAMINATION: XR chest 2V DATE: 01/04/2024 07:58 INDICATION: Pleural effusion. TECHNIQUE: Frontal and lateral views of the chest were obtained. COMPARISON: Chest single view 01/02/2024 FINDINGS: There are small pleural effusions. There are lucencies and interstitial opacities in the antonio ngs, consistent with emphysema. A left-sided pleural catheter is noted. There are airspace opacities in left lower lobe. There are stable airspace opacities in the upper lobes. No pneumothorax. The hear t size is normal. There is a left internal jugular port with tip at superior cavoatrial junction. IMPRESSION: 1. Stable small pleural effusions with pleural catheter on the left. 2. Stable airspace opacities in left lower lobe, consistent with pneumonia. 3. Stable airspace opacities in the upper lobes, consistent with radiation pneumonitis versus pneumon ia. 4. Emphysema. Reviewed, dictated and finalized at location [] IMPRESSION: 1. Stable small pleural effusions with pleural catheter on the left. 2. Stable airspace opacities in left lower lobe, consistent with pneumonia. 3. Stable airspace opacities in the upper lobes, consistent with radiation pneu monitis versus pneumonia. 4. Emphysema.
--- NOTE | ~2024-01-01 | XR_ITS ---
EXAMINATION: [id number] DATE: 01/02/2024 15:00 INDICATION: Right pleural effusion status post thoracentesis. TECHNIQUE: A single frontal view of the chest was obtained. COMPARISON: Chest CT 01/01/2024 FINDINGS: There are lucencies in the lungs, consistent with emphysema. There are airspace opacities i n the upper lobes and left lower lobe. There are airspace opacities at right lung base, likely atelec tasis. There are small pleural effusions. There is a pleural catheter on the left. No pneumothorax. T he heart size is normal. There is a left internal jugular port with tip at superior cavoatrial juncti on. IMPRESSION: 1. Small pleural effusions with pleural catheter on the left. 2. Airspace opacities in left lower lobe, consistent with pneumonia. 3. Airspace opacities in the upper lobes, consistent with radiation pneumonitis versus pneumonia. 4. Emphysema. Reviewed, dictated and finalized at location B.
--- NOTE | ~2024-01-01 | CT_ITS ---
EXAMINATION: CTA chest PE protocol DATE: 01/01/2024 10:25 INDICATION: Shortness of breath. TECHNIQUE: Computed tomography angiography (CTA) of the chest was performed with 100 mL Omnipaque-350 intravenous contrast timed to evaluate the pulmonary arteries. Coronal maximum intensity projection 3D-reconstructions were created by the technologist. Automated exposure control and iterative reconst ruction technique were employed. The dose-length product was 476.19 mGy-cm. COMPARISON: Chest CT 12/18/2023 FINDINGS: There is severe emphysema. There is a stable 14 mm nodule in right upper lobe. Again seen a re two 5 mm nodules in right middle lobe, stable from 09/06/2022, likely benign. Calcified right lung n odules and calcified right hilar and mediastinal lymph nodes are consistent with old granulomatous di sease. There is mild scarring at the lung apices. There are airspace opacities in right upper lobe. T here are airspace opacities and groundglass opacities in left lower lobe. There are mild airspace opa cities in left upper lobe. There are dependent airspace opacities in right lower lobe, likely atelect asis. There is a moderate-sized loculated right pleural effusion. There is a small left pleural effus ion with pleural catheter. The heart size is normal. There are coronary artery calcifications. No per icardial effusion. There is no pulmonary embolus. There is a left internal jugular port with tip in p roximal right atrium. There are changes of cholecystectomy. There is a 7 mm cyst in left kidney. Ther e is mild bilateral gynecomastia. There is mild thoracic spondylosis. There are bridging endplate ost eophytes at multiple levels in the spine, consistent with diffuse idiopathic skeletal hyperostosis (D MAGNO). IMPRESSION: 1. Worsened airspace and groundglass opacities in left lower lobe, consistent with pneumonia. Stable airspace opacities in the upper lobes, consistent with radiation pneumonitis versus pneumonia. 2. Stable 14 mm nodule in right upper lobe, consistent with primary bronchogenic carcinoma. 3. Severe emphysema. 4. Stable moderate-sized loculated right pleural effusion. 5. Stable small left pleural effusion with pleural catheter. 6. No pulmonary embolus. Reviewed, dictated and finalized at location B. IMPRESSION: 1. Worsened airspace and groundglass opacities in left lower lobe, consistent w ith pneumonia. Stable airspace opacities in the upper lobes, consistent with ra diation pneumonitis versus pneumonia. 2. Stable 14 mm nodule in right upper lobe, consistent with primary bronchogeni c carcinoma. 3. Severe emphysema. 4. Stable moderate-sized loculated right pleural effusion. 5. Stable small left pleural effusion with pleural catheter. 6. No pulmonary embolus.
--- NOTE | ~2024-01-01 | US_ITS ---
EXAMINATION: US thoracentesis DATE: 01/02/2024 15:04 INDICATION: Small right pleural effusion with lung cancer TECHNIQUE: The procedure and its risks and benefits were discussed with the patient. Potential risks discussed included bleeding, infection, and pneumothorax. The patient understood the risks and agreed to proceed. The skin was prepped and draped in sterile fashion. 1% lidocaine was used for local anes thesia. Under ultrasound guidance, a 5 Fr catheter with trochar was advanced into the right pleural e ffusion. Fluid was aspirated. The catheter was removed, and a dressing was applied. There were no imm ediate complications. FINDINGS: Ultrasound images demonstrate a small right pleural effusion and the catheter within the fluid. IMPRESSION: 1. Successful ultrasound-guided thoracentesis yielding 1100 mL of reddish fluid. Reviewed, dictated and finalized at location A. IMPRESSION: 1. Successful ultrasound-guided thoracentesis yielding 1100 mL of reddish flui d.
--- NOTE | 2024-01-01 08:57 | ECG_ITS ---
Test Date: 2024-01-01 08:47:32 Measurements Intervals [place] Rate: 123 P: 69 SC: 177 QRS: 59 QRSD: 88 T: 52 QT: 311 QTc: 445 Interpretive Statements SINUS TACHYCARDIA WITH OCCASIONAL VENTRICULAR PREMATURE COMPLEXES LOW QRS VOLTAGE IN PRECORDIAL LEADS [QRS DEFLECTION < 1.0 mV IN CHEST LEADS] ABNORMAL RHYTHM ECG Compared to ECG 11/15/2023 14:25:10 Ventricular premature complex(es) now present Electronically Signed On 01-01-2024 11:01:34 CDT by Noam Diez M.D.
[2024-01-01] MEDS: SODIUM CHLORIDE 0.9% IV 1,000 ML 999 ML IV CONT ×2 (09:10→11:39)
--- NOTE | 2024-01-01 09:17 | ED.SOB ---
HPI - SOB/Dyspnea General Chief Complaint: Shortness of Breath/Dyspnea Stated Complaint: shortness of breath Time Seen by Provider: 01/01/24 08:44 Source: patient, family, RN notes reviewed and old records reviewed Mode of arrival: ambulatory History of Present Illness HPI Narrative: This is an 83 year old male with history of COPD, chronic kidney disease, lung cancer, ROBIN who presents for evaluation of shortness of breath. He reports worsening shortness of breath for 1 week. He uses oxygen at night with his CPAP but he has been wearing all day for that past week. He has productive cough. He denies chest pain or fever. He denies leg swelling. Related Data Home Medications Medication Instructions Recorded Confirmed citalopram 20 mg tablet 20 mg PO DAILY 09/06/22 01/01/24 lorazepam 0.5 mg tablet 0.5 mg PO TID 09/06/22 01/01/24 metformin 1,000 mg tablet 1,000 mg PO BID 09/06/22 01/01/24 rosuvastatin 20 mg tablet 20 mg PO DAILY 09/06/22 01/01/24 albuterol sulfate 2.5 mg/3 mL 2.5 mg inhalation TID wheezing 11/15/23 01/01/24 (0.083 %) solution for nebulization diphenhydramine 25 1 tablet HS 01/01/24 01/01/24 mg-acetaminophen 500 mg tablet Allergies Allergy/AdvReac Type Severity Reaction Status Date / Time codeine AdvReac Unknown Verified 01/01/24 08:36 niacin AdvReac [place] Verified 01/01/24 08:36 Review of Systems Review of Systems: All systems reviewed & are unremarkable except as noted in HPI and below PMFSH Past Medical History Medical History Chronic anemia Chronic kidney disease, stage 3 Chronic obstructive pulmonary disease Chronic respiratory failure with hypoxia Colon cancer (2014) Hyperlipidemia Hypertension Non-small cell lung cancer (09/2022) Arising in the right lung status post chemo radiation, currently on immunotherapy. Obstructive sleep apnea Thrombocytopenia Tobacco abuse Type 2 diabetes mellitus Surgical History Surgical History History of bilateral cataract extraction History of cholecystectomy (2002) History of colon resection (2014) For colon cancer. History of skin graft Family History Family History Father Depression Social History Social History Social History: Surrogate medical decision maker: Mallorie Watson, spouse. Code status: Full code. Smoking packs per day: 0.15 Smoking cigarettes per day: 3.0 Years smoked: 60 Smoking pack-years: 9.00 Smoking status: Former smoker Tobacco type: cigarettes Smoking end date: 12/26/23 Alcohol intake: never Substance use: never Substance use type: does not use Do You Feel Safe in your Home?: Yes Lack of Transportation: No Lack of Food: Never True Current Housing: I Have Housing Concerned About Future Housing: No Difficulty Paying Gas/Electric Bills: No Difficulty Paying for Meds: No Currently Unemployed: No Education: High School Diploma/GED Difficulty w/ Childcare or Family Care: No Living arrangements: with family Occupation/Education: retired Spiritual care concerns: No Exam Const: General: alert and ill appearing; No diaphoretic Orientation/consciousness: patient oriented x3 HENMT: Head: normal to inspection Resp: Effort & Inspection: normal respiratory effort Auscultation: clear to auscultation bilaterally Cardio: Rate: tachycardic Rhythm: regular rhythm Heart sounds: no murmurs GI: GI Palp: Yes Soft to palpation, No Tenderness to palpation present (GI), No Guarding due to palpation present (GI) and No Rigid due to palpation Auscultation: normal bowel sounds Skin: General skin exam: normal color Rashes: no rashes Wounds: no wounds Neuro: General: patient oriented x3, moves all extremities and CN's II-XI intact bilaterally Psych: Mental Status: mental status grossly normal Affect: normal affect Attitude: cooperative Course Reevaluation(s) Reevaluation #1: I Discussed with patient and his daughter that he was found to have worsening pneumonia. He will be admitted due to progression and he is tachycardic. anemia is stable. Date: 01/01/24 Time: 11:00 Consultations Consultation #1: I Discussed case with Dr. Ch who accepts patient to medical floor. PAtient appears to have worsening pneumonia. He recommends starting meropenem and vanc since he was on rocephin previously. I also discussed family request for thoracentesis of right pleural effusion that was ordered as outpatient. Date: 01/01/24 Time: 11:27 Vital Signs Vital signs: Vital Signs Temperature 98 F 01/01/24 08:40 Pulse Rate 126 H 01/01/24 08:40 Respiratory Rate 22 H 01/01/24 08:40 Blood Pressure 125/68 01/01/24 08:40 Pulse Oximetry 88 L 01/01/24 08:40 Oxygen Delivery Room Air 01/01/24 08:40 Temperature 99.1 F 01/01/24 14:00 Pulse Rate 114 H 01/01/24 14:00 Respiratory Rate 18 01/01/24 14:00 Blood Pressure 126/60 01/01/24 14:00 Pulse Oximetry 90 01/01/24 14:00 Oxygen Delivery Room Air 01/01/24 08:40 MDM - SOB/Dyspnea MDM Narrative Medical decision making narrative: PAtient presents with hypoxia. labs, EKG, chest xray initially ordered. labs shows stable anemia , no elevated wbc. His chest xray shows minimal changes so CT chest ordered due to new hypoxia. CT shows possible progression of cancer or progression of pneumonia. Will admit to hospital after discussion with patietn Differential Diagnosis Differential diagnosis: Likely acute exacerbation of chronic obstructive airways disease, congestive heart failure, community acquired pneumonia, asthma with exacerbation, pulmonary embolism and other (metastatic cancer) Medical Records Attestation: I reviewed the patient's medical records. Lab Data Attestation: I reviewed the patient's lab results. 01/01/24 09:12 01/01/24 09:12 Labs: Lab Results 01/01/24 Range/Units 09:12 WBC 8.1 (4.5-10.0) K/mm3 RBC 2.98 L (4.6-6.20) M/mm3 Hgb 8.3 L (14.0-18.0) g/dL Hct 28.6 L (42.0-52.0) % MCV 96.0 (80-100) fl MCH 27.9 (26-34) pg MCHC 29.0 L (32-36) g/dl RDW 20.1 H (11.5-14.5) % Plt Count 170 (150-375) k/mm3 MPV 10.2 (7.4-10.4) fl Immature Gran % (Auto) 1.0 H (0-0.5) % Neut % (Auto) 84.0 H (45.5-73.1) % Lymph % (Auto) 6.8 L (18.3-44.2) % [place] % (Auto) 7.3 (2.6-8.5) % Eos % (Auto) 0.5 (0-4.4) % Baso % (Auto) 0.4 (0.2-1.2) % Lymph # (Auto) 0.55 L (0.9-3.2) K/mm3 [place] # (Auto) 0.6 (0.1-0.6) K/mm3 Eos # (Auto) 0.0 (0-0.3) K/mm3 Baso # (Auto) 0.0 (0.0-0.1) K/mm3 Abs Immat Gran (auto) 0.08 H (0.00-0.031) K/mm3 Absolute Neuts (auto) 6.8 H (1.3-6.7) K/mm3 Absolute Nucleated RBC 0.000 (0.0-0.012) K/mm3 Nucleated RBC % 0.0 (0.0-0.2) % Platelet Estimate Adequate (Adequate) Large Platelets Present Polychromasia 1+ Anisocytosis 2+ Schistocytes None seen PT 15.7 H (11.1-14.7) Seconds INR 1.2 APTT 30.9 (22.3-36.8) Seconds Sodium 141 (137-145) mmol/L Potassium 4.5 (3.4-5.0) mmol/L Chloride 109 H (98-107) mmol/L Carbon Dioxide 21 L (22-30) mmol/L Anion Gap 11 (4-12) mmol/L BUN 20 (9-20) mg/dL Creatinine 1.20 (0.7-1.3) mg/dL Estim Creat Clear Calc 42 ml/min Estimated GFR 58 L (59 - ) Glucose 221 H (65-110) mg/dL Lactic Acid 1.7 (0.7-2.0) mmol/L Calcium 9.0 (8.4-10.2) mg/dL Magnesium 1.6 (1.6-2.3) mg/dL Total Bilirubin 0.4 (0.2-1.3) mg/dL AST 16 L (17-59) U/L ALT 13 (6-50) U/L Alkaline Phosphatase 91 (38-126) U/L Total Protein 8.0 (6.3-8.2) g/dL Albumin 3.7 (3.5-5.1) g/dL ABG Data ABG results: 01/01/24 09:41 Puncture Site Left radial ABG pH 7.461 H ABG pCO2 29.3 L ABG pO2 63.6 L ABG PO2/FiO2 Ratio 2.27 ABG HCO3 20.4 L ABG O2 Saturation 93.8 L ABG O2 Content 11.6 L ABG Base Excess -2.7 A-a Gradient 101.5 Oxyhemoglobin 91.2 Total Hemoglobin 9.0 L O2 Delivery Device Nasal cannula O2 Liters/Min 2.0 FiO2 28 ECG Data EKG #1: Attestation: I personally reviewed and interpreted this ECG as follows: ECG completion date: 01/01/24 ECG completion time: 08:47 EKG Interpretation: tachycardia (123), sinus rhythm, PVCs and no ST changes Critical Care Time Critical Care Time Critical Care Time: Yes Total Critical Care Time: 40 Discharge Plan Discharge Clinical Impression: Acute and chronic respiratory failure with hypoxia, Pneumonia Patient Disposition: Still a Patient Condition: Guarded Prognosis
[2024-01-01 09:28] LABS: Basophils Percent Auto 0.4 % (0.2-1.2); Eosinophils Percent Auto 0.5 % (0-4.4); Hematocrit 28.6 % (42.0-52.0); Hemoglobin 8.3 g/dL (14.0-18.0); Immature Granulocyte Absolute 0.08 K/mm3 (0.00-0.031); Lymphocytes Absolute Auto 0.55 K/mm3 (0.9-3.2); Lymphocytes Percent Auto 6.8 % (18.3-44.2); Mean Corpuscular Hemoglobin 27.9 pg (26-34); Mean Platelet Volume 10.2 fl (7.4-10.4); Monocytes Absolute Auto 0.6 K/mm3 (0.1-0.6); Monocytes Percent Auto 7.3 % (2.6-8.5); Neutrophils Absolute Auto 6.8 K/mm3 (1.3-6.7); Platelet Count Result 170 k/mm3 (150-375); Red Blood Count 2.98 M/mm3 (4.6-6.20); Red Cell Distribution Width 20.1 % (11.5-14.5); White Blood Count 8.1 K/mm3 (4.5-10.0)
[2024-01-01 09:36] LABS: Lactic Acid Reflex 1.7 mmol/L (0.7-2.0)
[2024-01-01 09:38] LABS: INR 1.2; Prothrombin Time 15.7 Seconds (11.1-14.7)
[2024-01-01 09:39] LABS: Partial Thromboplastin Time 30.9 Seconds (22.3-36.8)
[2024-01-01 09:40] LABS: Alanine Aminotransferase 13 U/L (6-50); Albumin Level 3.7 g/dL (3.5-5.1); Alkaline Phosphatase 91 U/L (38-126); Anion Gap 11 mmol/L (4-12); Aspartate Amino Transferase 16 U/L (17-59); Bilirubin,Total 0.4 mg/dL (0.2-1.3); Blood Urea Nitrogen 20 mg/dL (9-20); Carbon Dioxide 21 mmol/L (22-30); Chloride 109 mmol/L (98-107); Estimated CRCL calculation 42 ml/min; Estimated Glomerular Filt Rate 58; Glucose 221 mg/dL (65-110); Magnesium 1.6 mg/dL (1.6-2.3); Potassium 4.5 mmol/L (3.4-5.0); Sodium 141 mmol/L (137-145)
[2024-01-01 09:44] LABS: Alveolar/Arterial O2 Gradient 101.5 mmHg; Base Excess ABG -2.7 mEq/l (+/-2.0); Device NASAL CANNULA; Fractional Inspired Oxygen 28 %; HCO3 ABG 20.4 mEq/l (22.0-26.0); Modified Allen's Test Pass; Oxygen Content ABG 11.6 %vol (16.0-22.0); Oxygen Saturation ABG 93.8 % (95.0-100.0); Oxyhemoglobin 91.2 % THb (90.0-100.0); PCO2 ABG 29.3 mmHg (35.0-45.0); PO2 ABG 63.6 mmHg (80.0-100.0); PO2 FiO2 Ratio Arterial Blood 2.27 %; Site Drawn LEFT RADIAL; pH ABG 7.461 (7.350-7.450)
[2024-01-01 09:54] LABS: Platelet Estimate Adequate (Adequate)
[2024-01-01 09:55] LABS: Anisocytosis 2+; Large Platelets Present
[2024-01-01 09:57] LABS: Polychromasia 1+
[2024-01-01 10:01] LABS: Schistocytes None Seen
[2024-01-01] MEDS: cefTRIAXone 2 GM/NS 100 ML 2 GM/100 ML BAG IVPB (11:09)
[2024-01-01] MEDS: AZITHROMYCIN 500 MG/NS 250 ML 500 MG/250 ML BAG 250 MG IVPB (11:10)
--- NOTE | 2024-01-01 12:23 | ADMGEN ---
This patient, Michele Watson, was admitted to Medical Room 344-01. Patient/family oriented to hospital policies and general routines including ID bracelet, bed and alarms, visiting hours, pain management, procedures, bathroom and other care routines, personal items, smoking policy, room service/diet, and visiting hours. Information on how to activate the Rapid Response Team has been discussed. Patient/Family are encouraged to report perceived risks to care and to ask questions if they do not understand what they are told or what they should do.
[2024-01-01 12:39] LABS: Glucose Point of Care 159 mg/dl (65-105)
[2024-01-01] MEDS: SODIUM CHLORIDE 0.9% IV 1,000 ML 125 ML IV CONT ×2 (13:19→23:41)
[2024-01-01] MEDS: MEROPENEM 1 GM/NS 100 ML 1 GM/100 ML BAG IVPB ×2 (13:26→20:21)
[2024-01-01] MEDS: VANCOMYCIN 2,000 MG/NS 500 ML 2,000 MG/500 ML BAG 250 MG IVPB (14:08)
[2024-01-01 15:31] LABS: MRSA (PCR) NOT DETECTED (NOT DETECTE)
--- NOTE | 2024-01-01 16:39 | P.HP_ITS ---
H&P: HPI History of Present Illness Date/Time: 01/01/24 16:39 Chief Complaint: SOB Narrative: Pt admitted for SOB and increased oxygen need at home, pt lives with his daughter who states pt needs oxygen at night only but recently has been wearing oxygen 2 liters all day. Pt has history of COPD severe Dr Hardin pulmology uses Oxygen prn and inhalers at home. Pt has lung cancer sees DR Willingham oncology and lung cancer is in remission pt periodically needs thoracentesis for his R lung. Pt uses CPAP at night for ROBIN. Lately pt has been more SOB desats at home and coughing alot so the daughter brought her dad in for evaluation. cxr shows - Minimal recent change in architectural distortion and scattered airspace opacities throughout both lungs consistent with atelectasis/scarring potentially with superimposed pneumonia or malignancy. 2. Unchanged small right pleural effusion. ct chest shows - New areas of patchy, irregular space consolidation the right middle lobe and left upper lobe. Findings are suspicious for infectious/inflammatory process, though progression of neoplastic disease is not completely excluded. Continued follow-up advised. Stable moderate loculated right pleural effusion. Stable small bore left basilar chest tube without significant effusion. Additional small irregular nodular opacities in the right upper lobe are stable from prior exam, possibly representing postoperative change and/or treated disease. Advanced emphysema. Review of Systems Review of Systems: SOB more cough lethargic tired All other 12 systems reviewed and negative apart from those in HPI [facility] Past Medical History Medical History Chronic anemia Chronic kidney disease, stage 3 Chronic obstructive pulmonary disease Chronic respiratory failure with hypoxia Colon cancer (2014) Hyperlipidemia Hypertension Non-small cell lung cancer (09/2022) Arising in the right lung status post chemo radiation, currently on immunotherapy. Obstructive sleep apnea Thrombocytopenia Tobacco abuse Type 2 diabetes mellitus Surgical History Surgical History History of bilateral cataract extraction History of cholecystectomy (2002) History of colon resection (2014) For colon cancer. History of skin graft Family History Family History Father Depression Social History Social History Social History: Surrogate medical decision maker: Mallorie Watson, spouse. Code status: Full code. Smoking packs per day: 0.15 Smoking cigarettes per day: 3.0 Years smoked: 60 Smoking pack-years: 9.00 Smoking status: Former smoker Tobacco type: cigarettes Smoking end date: 12/26/23 Alcohol intake: never Substance use: never Substance use type: does not use Do You Feel Safe in your Home?: Yes Lack of Transportation: No Lack of Food: Never True Current Housing: I Have Housing Concerned About Future Housing: No Difficulty Paying Gas/Electric Bills: No Difficulty Paying for Meds: No Currently Unemployed: No Education: High School Diploma/GED Difficulty w/ Childcare or Family Care: No Living arrangements: with family Occupation/Education: retired Spiritual care concerns: No Meds Home Medications and Allergies Home Medications Medication Instructions Recorded Confirmed Type citalopram 20 mg tablet 20 mg PO DAILY 09/06/22 01/01/24 History lorazepam 0.5 mg tablet 0.5 mg PO TID 09/06/22 01/01/24 History metformin 1,000 mg tablet 1,000 mg PO BID 09/06/22 01/01/24 History rosuvastatin 20 mg tablet 20 mg PO DAILY 09/06/22 01/01/24 History albuterol sulfate 90 mcg/actuation 2 puff inhalation QID PRN 05/12/23 01/01/24 Rx aerosol inhaler shortness of breath or wheezing #8.5 grams levothyroxine 50 mcg tablet 50 mcg PO DAILY@0630 #30 tabs 07/25/23 01/01/24 Rx (Synthroid) arformoterol 15 mcg/2 mL solution 2 ml inhalation BID 1 month #120 mL 10/03/23 01/01/24 Rx for nebulization budesonide 0.5 mg/2 mL suspension 0.5 mg (2 mL) inhalation BID 30 10/03/23 01/01/24 Rx for nebulization days #120 mL ipratropium bromide 0.02 % 2.5 ml inhalation TID shortness of 10/03/23 01/01/24 Rx solution for inhalation breath or wheezing 1 month #225 mL albuterol sulfate 2.5 mg/3 mL 2.5 mg inhalation TID wheezing 11/15/23 01/01/24 History (0.083 %) solution for nebulization insulin degludec 100 unit/mL (3 15 unit (0.15 mL) subcut HS #15 mL 11/19/23 01/01/24 Rx mL) subcutaneous pen (Tresiba FlexTouch U-100 insulin) diphenhydramine 25 1 tablet HS 01/01/24 01/01/24 History mg-acetaminophen 500 mg tablet Allergies Allergy/AdvReac Type Severity Reaction Status Date / Time codeine AdvReac Unknown Verified 01/01/24 08:36 niacin AdvReac [place] Verified 01/01/24 08:36 Vital Signs Vital Signs - 24 hr 01/01/24 08:40 01/01/24 08:43 01/01/24 08:44 Temperature 36.6 C Pulse Rate 126 H 129 H 127 H Respiratory Rate 22 H Blood Pressure 125/68 125/68 Pulse Oximetry 88 L 95 96 Oxygen Delivery Room Air 01/01/24 08:45 01/01/24 08:46 01/01/24 09:00 Temperature Pulse Rate 124 H 127 H 120 H Respiratory Rate 20 20 27 H Blood Pressure 116/69 Pulse Oximetry 96 97 94 Oxygen Delivery 01/01/24 09:01 01/01/24 09:15 01/01/24 09:16 Temperature Pulse Rate 126 H 119 H 121 H Respiratory Rate 29 H 26 H 20 Blood Pressure 115/70 110/64 Pulse Oximetry 96 95 Oxygen Delivery 01/01/24 09:30 01/01/24 09:31 01/01/24 09:32 Temperature Pulse Rate 117 H 116 H 115 H Respiratory Rate 25 H 26 H 25 H Blood Pressure 118/61 Pulse Oximetry 95 95 95 Oxygen Delivery 01/01/24 09:45 01/01/24 09:46 01/01/24 10:00 Temperature Pulse Rate 113 H 115 H 115 H Respiratory Rate 17 18 24 H Blood Pressure 122/66 Pulse Oximetry 95 95 95 Oxygen Delivery 01/01/24 10:01 01/01/24 10:15 01/01/24 10:16 Temperature Pulse Rate 114 H 119 H 116 H Respiratory Rate 29 H 17 24 H Blood Pressure 121/68 120/71 Pulse Oximetry 96 96 95 Oxygen Delivery 01/01/24 10:30 01/01/24 10:31 01/01/24 10:32 Temperature Pulse Rate 117 H 115 H Respiratory Rate 27 H 23 H 30 H Blood Pressure 131/60 119/62 Pulse Oximetry 95 94 94 Oxygen Delivery 01/01/24 10:45 01/01/24 10:46 01/01/24 11:00 Temperature Pulse Rate 111 H 112 H 112 H Respiratory Rate 8 L 21 H 29 H Blood Pressure 115/60 Pulse Oximetry 96 97 96 Oxygen Delivery 01/01/24 11:01 01/01/24 11:15 01/01/24 11:16 Temperature Pulse Rate 112 H 112 H 112 H Respiratory Rate 19 21 H 25 H Blood Pressure 127/65 120/65 Pulse Oximetry 96 94 95 Oxygen Delivery 01/01/24 12:11 01/01/24 14:00 Temperature 37.3 C Pulse Rate 110 H 114 H Respiratory Rate 24 H 18 Blood Pressure 110/62 126/60 Pulse Oximetry 96 90 Oxygen Delivery Exam Const: General: overweight and other (Pt having mild distress pt wearing oxygen at 2 liters ) Nutritional Appearance: overweight Orientation/consciousness: oriented to person HENMT: Head: normal to inspection Resp: Effort & Inspection: no respiratory distress Auscultation: rhonchi and wheezes (bl rhonchi and wheezes ) Cardio: Rate: regular rate Rhythm: regular rhythm GI: Inspection: normal to inspection GI Palp: No abdominal tenderness, No Guarding due to palpation present (GI) and No Hepatomegaly present Auscultation: normal bowel sounds Neuro: General: oriented to person Extrem: Other: no leg edema H&P: Results Labs Labs: Short CBC 01/01/24 Range/Units 09:12 WBC 8.1 (4.5-10.0) K/mm3 Hgb 8.3 L (14.0-18.0) g/dL Hct 28.6 L (42.0-52.0) % Plt Count 170 (150-375) k/mm3 BMP 01/01/24 09:12 Sodium 141 Potassium 4.5 Chloride 109 H Carbon Dioxide 21 L BUN 20 Creatinine 1.20 Glucose 221 H Calcium 9.0 Liver Function 01/01/24 Range/Units 09:12 Total Bilirubin 0.4 (0.2-1.3) mg/dL AST 16 L (17-59) U/L ALT 13 (6-50) U/L Alkaline Phosphatase 91 (38-126) U/L Albumin 3.7 (3.5-5.1) g/dL Assessment and Plan Assessment and plan (1) Pneumonia: Code(s): J18.9 - Pneumonia, unspecified organism Status: Acute Assessment and Plan: Pt has history of COPD and lung cancer Pt on iv vanc and iv merrem MRSA is negative can stop iv vanc D/W DR Frye to stop iv vancomycin and continue iv merem Watch WCC is nl Watch cultures (2) Hypothyroidism: Code(s): E03.9 - Hypothyroidism, unspecified Status: Acute Assessment and Plan: Continue pts synthroid (3) Chronic obstructive pulmonary disease: Code(s): J44.9 - Chronic obstructive pulmonary disease, unspecified Status: Acute Assessment and Plan: Continue pts inhalers pt needing 2 liters of oxygen continuously Consult pulmonology (4) Chronic kidney disease, stage 3: Qualifiers: Chronic kidney disease stage 3 subtype: unspecified whether 3a or 3b Qualified Code(s): N18.30 - Chronic kidney disease, stage 3 unspecified Code(s): N18.30 - Chronic kidney disease, stage 3 unspecified Status: Chronic Assessment and Plan: Watch creat (5) Acute and chronic respiratory failure with hypoxia: Code(s): J96.21 - Acute and chronic respiratory failure with hypoxia Status: Acute Assessment and Plan: Continue oxygen at 2 liters continuous Watch for any further desaturation (6) Pleural effusion: Code(s): J90 - Pleural effusion, not elsewhere classified Status: Chronic Assessment and Plan: Pt has small R pleural effusion Pt can have thoracentesis bradley therapeutic as pt already known to have lung cancer (7) Type 2 diabetes mellitus: Code(s): E11.9 - Type 2 diabetes mellitus without complications Status: Acute Assessment and Plan: Accuchecks SSI DM diet (8) Tobacco abuse: Code(s): Z72.0 - Tobacco use Status: Acute Assessment and Plan: Pt states he quit smoking 3 weeks ago Plan DVT prop with lovenox Pt is full code Quality VTE Prophylaxis VTE prophylaxis: pharmacologic ordered (lovenox ordered ) Hospitalist [facility] Advance Care Plan I have confirmed that the patient's Advanced Care Plan is present, code status is documented, or surrogate decision maker is listed in patient medical record.: Yes Medication Reconciliation The patient is not eligible for med reconciliation; the patient is in a emergent medical situation where delaying treatment would jeopardize the patients health.: Yes
[2024-01-01] MEDS: IPRATROPIUM 0.5 MG/ALBUTEROL SULFATE 2.5 MG AMPUL.NEB 3 ML INHALATION (19:37)
[2024-01-01] MEDS: BUDESONIDE RESPULE NEB 0.5 MG/2 ML AMP INHALATION (19:37)
[2024-01-01] MEDS: INSULIN GLARGINE (*BKC) 100 UNITS/ML 12 UNITS SUB-Q (20:21)
[2024-01-01 21:34] LABS: Glucose Point of Care 142 mg/dl (65-105)
[2024-01-02] VITALS (13 sets, daily range): BP systolic 123–128; BP diastolic 59–66; PULSE 86–111; RESP 18–22; TEMP 36.4–36.6; O2SAT 87–95
[2024-01-02] MEDS: LEVOTHYROXINE SODIUM 50 MCG TABLET PO (05:07)
[2024-01-02] MEDS: BUDESONIDE RESPULE NEB 0.5 MG/2 ML AMP INHALATION ×2 (07:14→20:50)
[2024-01-02] MEDS: IPRATROPIUM 0.5 MG/ALBUTEROL SULFATE 2.5 MG AMPUL.NEB 3 ML INHALATION ×3 (07:14→20:50)
[2024-01-02 07:31] LABS: Glucose Point of Care 143 mg/dl (65-105)
--- NOTE | 2024-01-02 09:15 | PM.CNPUL ---
Assessment and Plan Assessment and plan (1) Pneumonia: Code(s): J18.9 - Pneumonia, unspecified organism Status: Acute Assessment and Plan: This 83-year-old man, with a history of lung cancer treated with chemoradiation and also severe emphysema, has had bilateral pleural effusions managed with a PleurX catheter for drainage on the left side and a chronic effusion on the right. He presented with increasing shortness of breath, due to left lower lobe pneumonia. Approximately five weeks ago, he was hospitalized. Given his immunocompromised status, it is important to consider coverage for Gram-negative organisms due to possible healthcare-associated pneumonia. The patient exhibits no leukocytosis and appears to be responding well to meropenem IV. To spare the use of carbapenems, it is advisable to consider an alternative antibiotic regimen, such as cefepime IV combined with Zithromax IV. (2) Chronic obstructive pulmonary disease: Code(s): J44.9 - Chronic obstructive pulmonary disease, unspecified Status: Acute (3) Acute and chronic respiratory failure with hypoxia: Code(s): J96.21 - Acute and chronic respiratory failure with hypoxia Status: Acute (4) Pleural effusion: Code(s): J90 - Pleural effusion, not elsewhere classified Status: Chronic Assessment and Plan: The patient has chronic bilateral pleural effusions, with a PleurX catheter inserted to drain the left side. Per oncologist's report, the pleural fluid on the left was not related to the lung cancer. The patient reported that he has not needed to drain any fluid from the left chest cavity via the PleurX catheter since catheter insertion. A chest CT shows a residual left pleural effusion, which may represent pleural scarring. Regarding the right pleural effusion, the chest CT indicates it is of moderate size with some loculation. There is no previous pleural fluid analysis available to characterize the right pleural effusion. An order for right thoracentesis has been placed by the admitting physician. We need to fully analyze the fluid to determine the cause of the right pleural effusion. We will continue to monitor the patient's respiratory status closely in collaboration with you. (5) Non-small cell lung cancer: Onset Date: 09/2022 Code(s): C34.90 - Malignant neoplasm of unspecified part of unspecified bronchus or lung Status: Acute History of Present Illness History of Present Illness Consult date: 01/02/24 Chief complaint: Pneumonia, lung cancer Narrative: This 83-year-old man has a medical history of lung cancer, COPD, and obstructive sleep apnea. He presented with a several-day history of worsening shortness of breath. 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 His treatment included concurrent chemoradiation with Carboplatin and Alimta for four cycles, along with 30 fractions of radiation from November 08 to December 19, 2022. He also received Durvalumab. Approximately five months ago, bilateral pleural effusions were noted, and he underwent a left thoracentesis before being referred to a tertiary facility for PleurX catheter insertion. The patient reported that approximately 1 liter of fluid was drained during the catheter insertion, and no further fluid drainage has been necessary since. Recently, the patient began experiencing progressively worsening shortness of breath and a cough productive of green sputum, necessitating the resumption of daily supplemental oxygen at 3 liters per minute. He denied fever, chills, hemoptysis, chest pain, or lower extremity edema. Upon admission, a chest CT with contrast showed no pulmonary embolism but revealed a new infiltrate in the left lower lobe, consistent with pneumonia. His respiratory status has improved on meropenem. The chest CT also showed stable airspace opacities in the upper lobes, indicative of radiation pneumonitis, a stable 14 mm nodule in the right upper lobe consistent with primary bronchogenic carcinoma, a moderate-sized loculated right pleural effusion, a small left pleural effusion with a pleural catheter, and severe emphysema. The left lower lobe infiltrate is new compared to a chest CT from approximately two weeks prior. A review of previous hospitalizations indicated that the patient had bilateral pleural effusions over the past year, for which he underwent multiple bilateral thoracenteses. Pleural fluid analysis in July of this year suggested the left pleural effusion was likely exudative due to high protein content, with no malignancy detected in the pleural fluid per the oncology report. On the current chest CT, the R pleural effusion appears loculated with no significant increase in size over the past two weeks. In October of this year, the patient underwent right thoracentesis, with approximately 1 liter of fluid removed. No pleural fluid analysis is available for the most recent thoracentesis. Review of Systems Review of Systems: All systems reviewed & are unremarkable except as noted in HPI and below (HPI and below) FORMERLY [facility], [facility]–1983 Past Medical History Medical History Chronic anemia Chronic kidney disease, stage 3 Chronic obstructive pulmonary disease Chronic respiratory failure with hypoxia Colon cancer (2014) Hyperlipidemia Hypertension Non-small cell lung cancer (09/2022) Arising in the right lung status post chemo radiation, currently on immunotherapy. Obstructive sleep apnea Thrombocytopenia Tobacco abuse Type 2 diabetes mellitus Surgical History Surgical History History of bilateral cataract extraction History of cholecystectomy (2002) History of colon resection (2014) For colon cancer. History of skin graft Family History Family History Father Depression Social History Social History Social History: Surrogate medical decision maker: Mallorie Watson, spouse. Code status: Full code. Smoking packs per day: 0.15 Smoking cigarettes per day: 3.0 Years smoked: 60 Smoking pack-years: 9.00 Smoking status: Former smoker Tobacco type: cigarettes Smoking end date: 12/26/23 Alcohol intake: never Substance use: never Substance use type: does not use Do You Feel Safe in your Home?: Yes Lack of Transportation: No Lack of Food: Never True Current Housing: I Have Housing Concerned About Future Housing: No Difficulty Paying Gas/Electric Bills: No Difficulty Paying for Meds: No Currently Unemployed: No Education: High School Diploma/GED Difficulty w/ Childcare or Family Care: No Living arrangements: with family Occupation/Education: retired Spiritual care concerns: No Meds Home Medications and Allergies Home Medications Medication Instructions Recorded Confirmed Type citalopram 20 mg tablet 20 mg PO DAILY 09/06/22 01/01/24 History lorazepam 0.5 mg tablet 0.5 mg PO TID 09/06/22 01/01/24 History metformin 1,000 mg tablet 1,000 mg PO BID 09/06/22 01/01/24 History rosuvastatin 20 mg tablet 20 mg PO DAILY 09/06/22 01/01/24 History albuterol sulfate 90 mcg/actuation 2 puff inhalation QID PRN 05/12/23 01/01/24 Rx aerosol inhaler shortness of breath or wheezing #8.5 grams levothyroxine 50 mcg tablet 50 mcg PO DAILY@0630 #30 tabs 07/25/23 01/01/24 Rx (Synthroid) arformoterol 15 mcg/2 mL solution 2 ml inhalation BID 1 month #120 mL 10/03/23 01/01/24 Rx for nebulization budesonide 0.5 mg/2 mL suspension 0.5 mg (2 mL) inhalation BID 30 10/03/23 01/01/24 Rx for nebulization days #120 mL ipratropium bromide 0.02 % 2.5 ml inhalation TID shortness of 10/03/23 01/01/24 Rx solution for inhalation breath or wheezing 1 month #225 mL albuterol sulfate 2.5 mg/3 mL 2.5 mg inhalation TID wheezing 11/15/23 01/01/24 History (0.083 %) solution for nebulization insulin degludec 100 unit/mL (3 15 unit (0.15 mL) subcut HS #15 mL 11/19/23 01/01/24 Rx mL) subcutaneous pen (Tresiba FlexTouch U-100 insulin) diphenhydramine 25 1 tablet HS 01/01/24 01/01/24 History mg-acetaminophen 500 mg tablet Allergies Allergy/AdvReac Type Severity Reaction Status Date / Time codeine AdvReac Unknown Verified 01/01/24 08:36 niacin AdvReac Flushing Verified 01/01/24 08:36 Vital Signs Vital Signs - 24 hr 01/01/24 09:16 01/01/24 09:30 01/01/24 09:31 Temperature Pulse Rate 121 H 117 H 116 H Respiratory Rate 20 25 H 26 H Blood Pressure 110/64 118/61 Pulse Oximetry 95 95 95 Oxygen Delivery Oxygen Flow Rate Fraction of Inspired Oxygen 01/01/24 09:32 01/01/24 09:45 01/01/24 09:46 Temperature Pulse Rate 115 H 113 H 115 H Respiratory Rate 25 H 17 18 Blood Pressure 122/66 Pulse Oximetry 95 95 95 Oxygen Delivery Oxygen Flow Rate Fraction of Inspired Oxygen 01/01/24 10:00 01/01/24 10:01 01/01/24 10:15 Temperature Pulse Rate 115 H 114 H 119 H Respiratory Rate 24 H 29 H 17 Blood Pressure 121/68 Pulse Oximetry 95 96 96 Oxygen Delivery Oxygen Flow Rate Fraction of Inspired Oxygen 01/01/24 10:16 01/01/24 10:30 01/01/24 10:31 Temperature Pulse Rate 116 H 117 H 115 H Respiratory Rate 24 H 27 H 23 H Blood Pressure 120/71 131/60 119/62 Pulse Oximetry 95 95 94 Oxygen Delivery Oxygen Flow Rate Fraction of Inspired Oxygen 01/01/24 10:32 01/01/24 10:45 01/01/24 10:46 Temperature Pulse Rate 111 H 112 H Respiratory Rate 30 H 8 L 21 H Blood Pressure 115/60 Pulse Oximetry 94 96 97 Oxygen Delivery Oxygen Flow Rate Fraction of Inspired Oxygen 01/01/24 11:00 01/01/24 11:01 01/01/24 11:15 Temperature Pulse Rate 112 H 112 H 112 H Respiratory Rate 29 H 19 21 H Blood Pressure 127/65 Pulse Oximetry 96 96 94 Oxygen Delivery Oxygen Flow Rate Fraction of Inspired Oxygen 01/01/24 11:16 01/01/24 12:11 01/01/24 14:00 Temperature 37.3 C Pulse Rate 112 H 110 H 114 H Respiratory Rate 25 H 24 H 18 Blood Pressure 120/65 110/62 126/60 Pulse Oximetry 95 96 90 Oxygen Delivery Oxygen Flow Rate Fraction of Inspired Oxygen 01/01/24 19:39 01/01/24 19:50 01/01/24 19:51 Temperature Pulse Rate 79 76 Respiratory Rate 18 18 Blood Pressure Pulse Oximetry 96 Oxygen Delivery Nasal Cannula Oxygen Flow Rate 3 Fraction of Inspired Oxygen 01/01/24 19:52 01/01/24 20:15 01/01/24 20:00 Temperature 37.0 C Pulse Rate 79 105 H Respiratory Rate 18 Blood Pressure 120/66 Pulse Oximetry 96 94 94 Oxygen Delivery CPAP CPAP Oxygen Flow Rate 3 Fraction of Inspired Oxygen 01/02/24 02:12 01/02/24 05:05 01/02/24 07:14 Temperature 36.6 C Pulse Rate 103 H Respiratory Rate 18 Blood Pressure 123/59 L Pulse Oximetry 92 94 Oxygen Delivery CPAP Nasal Cannula Oxygen Flow Rate 3 Fraction of Inspired Oxygen 32 01/02/24 07:14 01/02/24 07:29 Temperature Pulse Rate 110 H 111 H Respiratory Rate 20 20 Blood Pressure Pulse Oximetry Oxygen Delivery Oxygen Flow Rate Fraction of Inspired Oxygen Exam Narrative: GENERAL APPEARANCE: Well developed, well nourished, alert and cooperative, and appears to be in no acute distress SKIN: Inspection of the skin reveals no rashes, ulcerations or petechiae. HEENT: Sclerae anicteric and conjunctivae pink and moist. Extraocular movements were intact and pupils were equal, round, and reactive to light. The oral mucosa, hard and soft palate, tongue and posterior pharynx were normal. NECK: Supple. There was no thyroid enlargement, and no tenderness, or masses were felt. LUNGS: Distant breath sounds bilaterally, rare crackles left base posteriorly no wheezing CARDIAC: There was a regular rate and rhythm without any murmurs, gallops, rubs. ABDOMEN: Soft and nontender with normal bowel sounds. There was no organomegaly. LYMPH NODES: No lymphadenopathy was appreciated in the neck. EXTREMITIES: No cyanosis, clubbing or edema. NEUROLOGIC: Alert and oriented x 3. Normal affect. Results Laboratory Findings 01/02/24 10:32 01/02/24 10:32 ABG, PT/INR, D-dimer: ABG ABG pH 7.461 (7.350-7.450) H 01/01/24 09:41 ABG pCO2 29.3 mmHg (35.0-45.0) L 01/01/24 09:41 ABG pO2 63.6 mmHg (80.0-100.0) L 01/01/24 09:41 ABG O2 Saturation 93.8 % (95.0-100.0) L 01/01/24 09:41 PT/INR, D-dimer PT 15.7 Seconds (11.1-14.7) H 01/01/24 09:12 INR 1.2 01/01/24 09:12 Abnormal lab findings: Abnormal Labs 01/01/24 01/01/24 01/01/24 09:12 09:41 12:36 RBC 2.98 L Hgb 8.3 L Hct 28.6 L MCHC 29.0 L RDW 20.1 H Immature Gran % (Auto) 1.0 H Neut % (Auto) 84.0 H Lymph % (Auto) 6.8 L Lymph # (Auto) 0.55 L Abs Immat Gran (auto) 0.08 H Absolute Neuts (auto) 6.8 H PT 15.7 H ABG pH 7.461 H ABG pCO2 29.3 L ABG pO2 63.6 L ABG HCO3 20.4 L ABG O2 Saturation 93.8 L ABG O2 Content 11.6 L Total Hemoglobin 9.0 L Chloride 109 H Carbon Dioxide 21 L Estimated GFR 58 L Glucose 221 H POC Capillary Glucose 159 H AST 16 L 01/01/24 01/02/24 20:18 07:29 RBC Hgb Hct MCHC RDW Immature Gran % (Auto) Neut % (Auto) Lymph % (Auto) Lymph # (Auto) Abs Immat Gran (auto) Absolute Neuts (auto) PT ABG pH ABG pCO2 ABG pO2 ABG HCO3 ABG O2 Saturation ABG O2 Content Total Hemoglobin Chloride Carbon Dioxide Estimated GFR Glucose POC Capillary Glucose 142 H 143 H AST
[2024-01-02] MEDS: SODIUM CHLORIDE 0.9% IV 1,000 ML 125 ML IV CONT ×2 (10:34→23:50)
[2024-01-02] MEDS: MEROPENEM 1 GM/NS 100 ML 1 GM/100 ML BAG IVPB (10:34)
[2024-01-02 10:52] LABS: Hematocrit 23.3 % (42.0-52.0); Hemoglobin 7.1 g/dL (14.0-18.0); Mean Corpuscular HGB Conc 30.5 g/dl (32-36); Mean Corpuscular Hemoglobin 29.1 pg (26-34); Mean Corpuscular Volume 95.5 fl (80-100); Mean Platelet Volume 9.5 fl (7.4-10.4); Platelet Count Result 121 k/mm3 (150-375); Red Blood Count 2.44 M/mm3 (4.6-6.20); Red Cell Distribution Width 19.6 % (11.5-14.5); White Blood Count 5.7 K/mm3 (4.5-10.0)
[2024-01-02 11:34] LABS: Alanine Aminotransferase 10 U/L (6-50); Albumin Level 3.1 g/dL (3.5-5.1); Alkaline Phosphatase 69 U/L (38-126); Anion Gap 9 mmol/L (4-12); Aspartate Amino Transferase 14 U/L (17-59); Bilirubin,Total 0.3 mg/dL (0.2-1.3); Blood Urea Nitrogen 16 mg/dL (9-20); Calcium 8.5 mg/dL (8.4-10.2); Carbon Dioxide 21 mmol/L (22-30); Chloride 108 mmol/L (98-107); Estimated CRCL calculation 50 ml/min; Estimated Glomerular Filt Rate > 60; Glucose 153 mg/dL (65-110); Magnesium 1.6 mg/dL (1.6-2.3); Potassium 4.1 mmol/L (3.4-5.0); Sodium 138 mmol/L (137-145)
[2024-01-02] MEDS: CENTRAL LINE FLUSH 10 ML IV PUSH ×2 (14:10→21:19)
--- NOTE | 2024-01-02 14:24 | P.PNIM_ITS ---
Progress Note: A&P Assessment and Plan (1) Acute and chronic respiratory failure with hypoxia: Code(s): J96.21 - Acute and chronic respiratory failure with hypoxia Status: Acute Assessment and Plan: * Secondary to pneumonia/COPD exacerbation/loculated pleural effusions/HX lung cancer * Wears 3L NC at night only now having to wear all the time * Will likely need home O2 walk study * Pulmonology consulted * CT scan showed radiation pneumonitis versus pneumonia severe emphysema and no change to 1.4 cm nodule the right upper lobe * DuoNebs (2) Pneumonia: Code(s): J18.9 - Pneumonia, unspecified organism Status: Acute Assessment and Plan: * HX lung cancer/COPD/Current smoker and hospitalization past 30-days * CT scan Worsened airspace and groundglass opacities in left lower lobe, consistent with pneumonia * Bronchodilators. * Chest x-ray/CT scan reviewed * incentive spirometry while awake. * sputum culture ordered * Blood cultures x2 NGTD * Initially on IV meropenem pulmonology requesting azithromycin and cefepime * supplemental oxygen therapy to * monitor for signs of in sepsis * Smoking cessation counseling done * Pulmonology consulted (3) Chronic obstructive pulmonary disease: Code(s): J44.9 - Chronic obstructive pulmonary disease, unspecified Status: Acute Assessment and Plan: * CT showing severe emphysema/history of lung cancer stable 1.4 cm nodule the right upper follows with [facility] outpatient * Bronchodilators. * Chest x-ray reviewed * incentive spirometry while awake. * steroids initiated * azithromycin 500 x 1 day/250 daily * supplemental oxygen therapy to maintain oxygen 92%/3L at night but need all the time * Pulmonary rehab if indicated. * Disease management following GOLD guidelines. * Repeat hospitalization risk evaluation per [facility] * Oxygen evaluation for all day use * Smoking cessation counseling done * Follow-up with advanced practice provider as an outpatient (4) Pleural effusion: Code(s): J90 - Pleural effusion, not elsewhere classified Status: Chronic Assessment and Plan: * RT pleural effusion noted on CT * Thoracentesis today for comfort * Known history of lung cancer likely cause of loculated pleural effusion (5) Adenocarcinoma, lung: Code(s): C34.90 - Malignant neoplasm of unspecified part of unspecified bronchus or lung Status: Acute Assessment and Plan: * Post radiation and cancer treatment * Follows with Dr. Willingham * CT scan showing stable 1.4 cm right upper lobe nodule * Will need to follow up with Oncology outpatient for continued monitoring (6) Type 2 diabetes mellitus: Code(s): E11.9 - Type 2 diabetes mellitus without complications Status: Acute Assessment and Plan: * Accu-Cheks a.c. HS * sliding scale insulin * hold oral diabetic medications * resume patient's home long-acting * Diabetic diet * Optimize Trevor inhibitors and statins. * Watch for hypoglycemia/hypoglycemic protocol ordered (7) Tobacco abuse: Code(s): Z72.0 - Tobacco use Status: Acute Assessment and Plan: * Patient states he quit smoking 3 weeks ago * Provided smoking cessation education Plan Code status: Full code per patient DVT prophylaxis: Lovenox Stress ulcer prophylaxis: NA PT/OT notes: Ambulatory Disposition: Patient was admitted to the medical unit for acute respiratory failure with hypoxia secondary to pneumonia/COPD exacerbation and pleural effusions. Plan for thoracentesis today and continue with antibiotic coverage pending cultures patient recently hospitalized treating as hospital-acquired. Patient currently wearing 3 L at all times but states he only wears 3 L at night at home will need to do a home oxygen walk study prior to discharge. Time Spent With Patient Time with patient: 15 - 25 minutes Subjective Date/time seen: 01/02/24 14:24 Interval history: Patient is an 83-year-old male who was admitted to the medical unit for further evaluation of acute on chronic respiratory failure with hypoxia secondary to pneumonia and pleural effusion with underlying lung cancer. 01/02/24: Assumed care Patient on side of the bed reports breathing is mildly better on his 3 LNC however states he only is suppose to be wearing at night. He is agitated because he hasn't eaten in over 13 hours waiting for his thoracentesis. Patient recently hospitalized 11/24/2023 and underwent thoracentesis fluid removal. Denied CP, Dizziness, Nausea, or vomiting. Review of Systems Review of Systems: All systems reviewed & are unremarkable except as noted in HPI and below Exam Narrative: * GENERAL: Alert and oriented x 3 agitated male. with noticeable dyspnea * EYES: EOMI. No scleral icterus. PERRLA. * HEENT: Moist mucous membranes. * LUNGS: diminished bilaterally. tachypnea * CARDIOVASCULAR: Tachycardia and rhythm. No murmur. No JVD. S1-S2 * ABDOMEN: Soft, non tenderness and non-distended. No palpable masses. * EXTREMITIES: No edema. Non-tender * SKIN: No rashes or lesions. Skin warm, dry. * NEUROLOGIC: No focal neurological deficits. CN II-XII grossly intact * PSYCHIATRIC: Agitated mood and affect. Good judgement and insight. Objective Data Vital Signs Vital Signs: Vital Signs - 24 hr 01/01/24 19:39 01/01/24 19:50 01/01/24 19:51 Temperature Pulse Rate 79 76 Respiratory Rate 18 18 Blood Pressure Pulse Oximetry 96 Oxygen Delivery Nasal Cannula Oxygen Flow Rate 3 Fraction of Inspired Oxygen 01/01/24 19:52 01/01/24 20:15 01/01/24 20:00 Temperature 98.6 F Pulse Rate 79 105 H Respiratory Rate 18 Blood Pressure 120/66 Pulse Oximetry 96 94 94 Oxygen Delivery CPAP CPAP Oxygen Flow Rate 3 Fraction of Inspired Oxygen 01/02/24 02:12 01/02/24 05:05 01/02/24 07:14 Temperature 97.8 F Pulse Rate 103 H Respiratory Rate 18 Blood Pressure 123/59 L Pulse Oximetry 92 94 Oxygen Delivery CPAP Nasal Cannula Oxygen Flow Rate 3 Fraction of Inspired Oxygen 32 01/02/24 07:14 01/02/24 07:29 01/02/24 10:34 Temperature Pulse Rate 110 H 111 H Respiratory Rate 20 20 Blood Pressure Pulse Oximetry 95 Oxygen Delivery Nasal Cannula Oxygen Flow Rate 2 Fraction of Inspired Oxygen 01/02/24 14:21 Temperature Pulse Rate 103 H Respiratory Rate 20 Blood Pressure Pulse Oximetry Oxygen Delivery Oxygen Flow Rate Fraction of Inspired Oxygen Intake/Output Intake/Output: Intake & Output 12/30/23 12/31/23 01/01/24 01/02/24 23:59 23:59 23:59 23:59 Intake Total 2840 1200 Output Total 1400 600 Balance 1440 600 Meds/Results Medications: Active Medications Generic Name Dose Route Start Last Admin Trade Name Freq PRN Reason Stop Dose Admin Albuterol 2 puff 01/01/24 17:03 Albuterol Sulfate (*Sp) Aerosol 1 Puff INHALATION QID PRN shortness of breath or wheezing Albuterol/Ipratropium 3 ml 01/01/24 20:00 01/02/24 14:21 Ipratropium 0.5 Mg/Albuterol Sulfate 2.5 Mg Ampul.Neb 3 Ml INHALATION 3 ml TIDRT JERROD Administration Budesonide 0.5 mg 01/01/24 20:00 01/02/24 07:14 Budesonide Respule Neb 0.5 Mg/2 Ml Amp INHALATION 0.5 mg Q12HRT JERROD Administration Citalopram Hydrobromide 20 mg 01/02/24 09:00 01/02/24 10:26 Citalopram Hydrobromide 20 Mg Tablet PO Not Given DAILY JERROD Dextrose 12.5 gm 01/01/24 17:03 Dextrose 50% 25 Gm/50 Ml Syringe IV PUSH PRN PRN Hypoglycemia Protocol Enoxaparin Sodium 40 mg 01/02/24 09:00 01/02/24 10:26 Enoxaparin 40 Mg/0.4 Ml Syringe SUB-Q Not Given DAILY JERROD Glucagon 1 mg 01/01/24 17:03 Glucagon For Inj 1 Mg Vial IM PRN PRN Hypoglycemia Protocol Glucose 15 gm 01/01/24 17:03 Glucose Oral Gel 15 Gm Of Glucse In 37.5 Gm Tube PO PRN PRN Hypoglycemia Protocol Heparin Sodium (Beef Lung) 50 units 01/02/24 09:00 01/02/24 10:27 Heparin Flush 50 Units/5 Ml Syringe IV PUSH Not Given QAM JERROD Heparin Sodium (Beef Lung) 50 units 01/02/24 08:00 Heparin Flush 50 Units/5 Ml Syringe IV PUSH PRN PRN after intermittent infusion Heparin Sodium (Beef Lung) 50 units 01/02/24 08:00 Heparin Flush 50 Units/5 Ml Syringe IV PUSH PRN PRN after blood draws Heparin Sodium (Porcine) 500 units 01/02/24 08:00 Heparin Sodium Lock Flush 500 Units/5 Ml Syringe IV PUSH PRN PRN see comments below Sodium Chloride 1,000 mls @ 125 mls/hr 01/01/24 11:45 01/02/24 13:39 Normal Saline Iv IV CONT Not Given .Q8H JERROD Meropenem 1 gm in 100 mls @ 200 mls/hr 01/01/24 21:00 01/02/24 11:04 IVPB Infused Q12H JERROD Infusion Dextrose 1,000 mls @ 100 mls/hr 01/01/24 17:03 Dextrose 5% 1,000 Ml IVPB PRN PRN Hypoglycemia Protocol Insulin Aspart 3 - 6 units 01/02/24 08:00 01/02/24 12:18 Insulin Aspart (*Bkc) 100 Units/Ml SUB-Q Not Given TIDWM JERROD Protocol Insulin Aspart 1 - 3 units 01/01/24 21:00 01/01/24 20:18 Insulin Aspart (*Bkc) 100 Units/Ml SUB-Q Not Given HS JERROD Protocol Insulin Glargine 12 units 01/01/24 21:00 01/01/24 20:21 Insulin Glargine (*Bkc) 100 Units/Ml 0.15 units/kg (12 units) 12 units SUB-Q Administration HS JERROD Levothyroxine Sodium 50 mcg 01/02/24 06:30 01/02/24 05:07 Levothyroxine Sodium 50 Mcg Tablet PO 50 mcg DAILY@0630 JERROD Administration Lorazepam 0.5 mg 01/02/24 09:00 01/02/24 12:18 Lorazepam (*Crx) 0.5 Mg Tablet PO Not Given TID JERROD Pantoprazole Sodium 40 mg 01/02/24 09:00 01/02/24 10:27 Pantoprazole 40 Mg Tablet PO Not Given QAM JERROD Rosuvastatin Calcium 20 mg 01/02/24 09:00 01/02/24 10:29 Rosuvastatin 20 Mg Tablet PO Not Given DAILY JERROD Sodium Chloride 10 ml 01/02/24 14:00 01/02/24 14:10 Central Line Flush IV PUSH 10 ml Q8HR JERROD Administration Radiology Results: ITS Impressions Chest X-Ray 01/01/24 09:18 IMPRESSION: 1. Minimal recent change in architectural distortion and scattered airspace opacities throughout both lungs consistent with atelectasis/scarring potentially with superimposed pneumonia or malignancy. 2. Unchanged small right pleural effusion. Chest CTA 01/01/24 10:26 IMPRESSION: 1. Worsened airspace and groundglass opacities in left lower lobe, consistent with pneumonia. Stable airspace opacities in the upper lobes, consistent with radiation pneumonitis versus pneumonia. 2. Stable 14 mm nodule in right upper lobe, consistent with primary bronchogenic carcinoma. 3. Severe emphysema. 4. Stable moderate-sized loculated right pleural effusion. 5. Stable small left pleural effusion with pleural catheter. 6. No pulmonary embolus. Labs Labs: Laboratory Results - last 24 hr 01/01/24 01/01/24 01/02/24 14:03 20:18 07:29 WBC RBC Hgb Hct MCV MCH MCHC RDW Plt Count MPV Sodium Potassium Chloride Carbon Dioxide Anion Gap BUN Creatinine Estim Creat Clear Calc Estimated GFR Glucose POC Capillary Glucose 142 H 143 H Calcium Magnesium Total Bilirubin AST ALT Alkaline Phosphatase Total Protein Albumin Nasal MRSA (PCR) Not detected 01/02/24 10:32 WBC 5.7 RBC 2.44 L Hgb 7.1 L Hct 23.3 L MCV 95.5 MCH 29.1 MCHC 30.5 L RDW 19.6 H Plt Count 121 L MPV 9.5 Sodium 138 Potassium 4.1 Chloride 108 H Carbon Dioxide 21 L Anion Gap 9 BUN 16 Creatinine 1.00 Estim Creat Clear Calc 50 Estimated GFR > 60 Glucose 153 H POC Capillary Glucose Calcium 8.5 Magnesium 1.6 Total Bilirubin 0.3 AST 14 L ALT 10 Alkaline Phosphatase 69 Total Protein 7.0 Albumin 3.1 L Nasal MRSA (PCR) Quality VTE Prophylaxis VTE prophylaxis: pharmacologic ordered (lovenox ordered ) -Patient's previous records reviewed on admission -ER notes reviewed in detail on admission -discussed all findings and current treatment plan with patient/Family/POA -Consultations reviewed for recommendations -Patient's disposition for safe discharge discussed with watch case polisher Dictation performed by [employer] direct speech recognition software, therefore special educator variants and typographical errors may occur. Hospitalist MIPS Advance Care Plan I have confirmed that the patient's Advanced Care Plan is present, code status is documented, or surrogate decision maker is listed in patient medical record.: Yes Medication Reconciliation I have utilized all available resources to obtain, update and review the patients current medications (includes all prescriptions, OTC, herbals, cannabis, and nutritional supplements).: Yes The patient is not eligible for med reconciliation; the patient is in a emergent medical situation where delaying treatment would jeopardize the patients health.: No
--- NOTE | 2024-01-02 14:36 | PC.NURSE ---
Patient off of unit to thoracentesis
[2024-01-02] MEDS: LORazepam (*CRX) 0.5 MG TABLET PO (17:45)
[2024-01-02] MEDS: AZITHROMYCIN 500 MG/NS 250 ML 500 MG/250 ML BAG 250 MG IVPB (17:45)
[2024-01-02] MEDS: CEFEPIME 2 GM/NS 50 ML 2 GM/50 ML BAG IVPB (21:13)
[2024-01-02] MEDS: INSULIN GLARGINE (*BKC) 100 UNITS/ML 12 UNITS SUB-Q (21:17)
[2024-01-02] MEDS: INSULIN ASPART (*BKC) 100 UNITS/ML SUB-Q (21:18)
[2024-01-02 21:43] LABS: Glucose Point of Care 179 mg/dl (65-105)
[2024-01-02 21:43] LABS: Glucose Point of Care 270 mg/dl (65-105)
[2024-01-03] VITALS (14 sets, daily range): BP systolic 113–119; BP diastolic 55–79; PULSE 62–112; RESP 12–20; TEMP 36.3–37.1; O2SAT 93–95
[2024-01-03 04:58] LABS: Mean Corpuscular HGB Conc 30.4 g/dl (32-36); Mean Corpuscular Hemoglobin 28.5 pg (26-34); Mean Corpuscular Volume 93.5 fl (80-100); Mean Platelet Volume 9.4 fl (7.4-10.4); Platelet Count Result 121 k/mm3 (150-375); Red Blood Count 2.46 M/mm3 (4.6-6.20); Red Cell Distribution Width 19.3 % (11.5-14.5); White Blood Count 4.7 K/mm3 (4.5-10.0)
[2024-01-03 05:09] LABS: Alanine Aminotransferase 21 U/L (6-50); Albumin Level 3.1 g/dL (3.5-5.1); Alkaline Phosphatase 66 U/L (38-126); Anion Gap 11 mmol/L (4-12); Aspartate Amino Transferase 30 U/L (17-59); Bilirubin,Total 0.2 mg/dL (0.2-1.3); Blood Urea Nitrogen 17 mg/dL (9-20); Calcium 8.2 mg/dL (8.4-10.2); Carbon Dioxide 20 mmol/L (22-30); Chloride 108 mmol/L (98-107); Estimated CRCL calculation 50 ml/min; Estimated Glomerular Filt Rate > 60; Glucose 169 mg/dL (65-110); Potassium 3.9 mmol/L (3.4-5.0); Sodium 139 mmol/L (137-145)
[2024-01-03] MEDS: LEVOTHYROXINE SODIUM 50 MCG TABLET PO (05:56)
[2024-01-03] MEDS: CENTRAL LINE FLUSH 10 ML IV PUSH ×3 (05:58→20:51)
--- NOTE | 2024-01-03 07:33 | P.PNIM_ITS ---
Progress Note: A&P Assessment and Plan (1) Acute and chronic respiratory failure with hypoxia: Code(s): J96.21 - Acute and chronic respiratory failure with hypoxia Status: Acute Assessment and Plan: * Secondary to pneumonia/COPD exacerbation/loculated pleural effusions/HX lung cancer * Wears 3L NC at night only now having to wear all the time * Will likely need home O2 walk study * Pulmonology consulted * CT scan showed radiation pneumonitis versus pneumonia severe emphysema and no change to 1.4 cm nodule the right upper lobe * DuoNebs (2) Pneumonia: Code(s): J18.9 - Pneumonia, unspecified organism Status: Acute Assessment and Plan: * HX lung cancer/COPD/Current smoker and hospitalization past 30-days * CT scan Worsened airspace and groundglass opacities in left lower lobe, consistent with pneumonia * Bronchodilators. * Chest x-ray/CT scan reviewed * incentive spirometry while awake. * sputum culture ordered * Blood cultures x2 NGTD * Initially on IV meropenem pulmonology requesting azithromycin and cefepime * supplemental oxygen therapy to * monitor for signs of in sepsis * Smoking cessation counseling done * Pulmonology consulted * Repeat xray in the am 01/03 (3) Chronic obstructive pulmonary disease: Code(s): J44.9 - Chronic obstructive pulmonary disease, unspecified Status: Acute Assessment and Plan: * CT showing severe emphysema/history of lung cancer stable 1.4 cm nodule the right upper follows with [facility] outpatient * Bronchodilators. * Chest x-ray reviewed * incentive spirometry while awake. * steroids initiated * azithromycin 500 x 1 day/250 daily * supplemental oxygen therapy to maintain oxygen 92%/3L at night but need all the time * Pulmonary rehab if indicated. * Disease management following GOLD guidelines. * Repeat hospitalization risk evaluation per [facility] * Oxygen evaluation for all day use * Smoking cessation counseling done * Follow-up with building carpenter as an outpatient (4) Pleural effusion: Code(s): J90 - Pleural effusion, not elsewhere classified Status: Chronic Assessment and Plan: * RT pleural effusion noted on CT * Thoracentesis today for comfort * Known history of lung cancer likely cause of loculated pleural effusion * It does not appear fluid studies were ordered for right thoracentesis yesterday (01/02). Added on studies and will check with lab to see if there is any fluid for sampling. * repeat x-ray in the am (5) Adenocarcinoma, lung: Code(s): C34.90 - Malignant neoplasm of unspecified part of unspecified bronchus or lung Status: Acute Assessment and Plan: * Post radiation and cancer treatment * Follows with Dr. Willingham * CT scan showing stable 1.4 cm right upper lobe nodule * Will need to follow up with Oncology outpatient for continued monitoring (6) Type 2 diabetes mellitus: Code(s): E11.9 - Type 2 diabetes mellitus without complications Status: Acute Assessment and Plan: * [place]-Nancy nelson HS * sliding scale insulin * hold oral diabetic medications * resume patient's home long-acting * Diabetic diet * Optimize Trevor inhibitors and statins. * Watch for hypoglycemia/hypoglycemic protocol ordered (7) Tobacco abuse: Code(s): Z72.0 - Tobacco use Status: Acute Assessment and Plan: * Patient states he quit smoking 3 weeks ago * Provided smoking cessation education Plan Code status: Full code per patient DVT prophylaxis: Lovenox Stress ulcer prophylaxis: NA PT/OT notes: Ambulatory Disposition: Patient was admitted to the medical unit for acute respiratory failure with hypoxia secondary to pneumonia/COPD exacerbation and pleural effusions. Plan for thoracentesis today and continue with antibiotic coverage pending cultures patient recently hospitalized treating as hospital-acquired. Patient currently wearing 3 L at all times but states he only wears 3 L at night at home will need to do a home oxygen walk study prior to discharge. He has not had a bowel movement in the last few days. Started on miralax today. Subjective Date/time seen: 01/03/24 07:33 Interval history: No acute events overnight. Patient is seen in his room ambulating with 2 L nasal cannula. He states he is feeling better overall. Review of Systems Review of Systems: All systems reviewed & are unremarkable except as noted in HPI and below Exam Narrative: General: appears comfortable, in no acute distress on 2 L NC Respiratory: breathing is unlabored with even chest rise/fall, lungs are clear and diminished without wheezing, rhonchi, and crackles Cardiovascular: Rate and rhythm regular, normal s1s2, no murmur Abdomen: Soft, round, non-tender, active bowel sounds Extremities: No cyanosis, edema, clubbing. Pulses 2/2 Neuro: A&O x 4 Skin: Warm, dry, intact Objective Data Vital Signs Vital Signs: Vital Signs - 24 hr 01/02/24 10:34 01/02/24 14:20 01/02/24 14:26 Temperature Pulse Rate 103 H 104 H Respiratory Rate 20 20 Blood Pressure Pulse Oximetry 95 Oxygen Delivery Nasal Cannula Oxygen Flow Rate 2 Fraction of Inspired Oxygen 01/02/24 20:52 01/02/24 20:55 01/02/24 21:04 Temperature Pulse Rate 111 H 86 Respiratory Rate 20 20 Blood Pressure Pulse Oximetry 87 L Oxygen Delivery Nasal Cannula Oxygen Flow Rate 3 Fraction of Inspired Oxygen 32 01/02/24 21:06 01/02/24 20:00 01/02/24 22:03 Temperature 97.6 F Pulse Rate 105 H Respiratory Rate 22 H Blood Pressure 128/66 Pulse Oximetry 94 94 95 Oxygen Delivery Nasal Cannula CPAP Oxygen Flow Rate 4 Fraction of Inspired Oxygen 01/03/24 04:53 01/03/24 03:00 01/02/24 20:56 Temperature 97.4 F L Pulse Rate 92 Respiratory Rate 18 Blood Pressure 119/60 Pulse Oximetry 94 94 93 Oxygen Delivery CPAP Nasal Cannula Oxygen Flow Rate 4 Fraction of Inspired Oxygen 36 Intake/Output Intake/Output: Intake & Output 12/31/23 01/01/24 01/02/24 01/03/24 23:59 23:59 23:59 23:59 Intake Total 2840 2522 200 Output Total 1400 2850 400 Balance 1440 -328 -200 Meds/Results Medications: Active Medications Generic Name Dose Route Start Last Admin Trade Name Freq PRN Reason Stop Dose Admin Albuterol 2 puff 01/01/24 17:03 Albuterol Sulfate (*Sp) Aerosol 1 Puff INHALATION QID PRN shortness of breath or wheezing Albuterol/Ipratropium 3 ml 01/01/24 20:00 01/02/24 20:50 Ipratropium 0.5 Mg/Albuterol Sulfate 2.5 Mg Ampul.Neb 3 Ml INHALATION 3 ml TIDRT JERROD Administration Budesonide 0.5 mg 01/01/24 20:00 01/02/24 20:50 Budesonide Respule Neb 0.5 Mg/2 Ml Amp INHALATION 0.5 mg Q12HRT JERROD Administration Citalopram Hydrobromide 20 mg 01/02/24 09:00 01/02/24 10:26 Citalopram Hydrobromide 20 Mg Tablet PO Not Given DAILY JERROD Dextrose 12.5 gm 01/01/24 17:03 Dextrose 50% 25 Gm/50 Ml Syringe IV PUSH PRN PRN Hypoglycemia Protocol Enoxaparin Sodium 40 mg 01/02/24 09:00 01/02/24 10:26 Enoxaparin 40 Mg/0.4 Ml Syringe SUB-Q Not Given DAILY JERROD Glucagon 1 mg 01/01/24 17:03 Glucagon For Inj 1 Mg Vial IM PRN PRN Hypoglycemia Protocol Glucose 15 gm 01/01/24 17:03 Glucose Oral Gel 15 Gm Of Glucse In 37.5 Gm Tube PO PRN PRN Hypoglycemia Protocol Heparin Sodium (Beef Lung) 50 units 01/02/24 09:00 01/02/24 10:27 Heparin Flush 50 Units/5 Ml Syringe IV PUSH Not Given QAM JERROD Heparin Sodium (Beef Lung) 50 units 01/02/24 08:00 Heparin Flush 50 Units/5 Ml Syringe IV PUSH PRN PRN after intermittent infusion Heparin Sodium (Beef Lung) 50 units 01/02/24 08:00 Heparin Flush 50 Units/5 Ml Syringe IV PUSH PRN PRN after blood draws Heparin Sodium (Porcine) 500 units 01/02/24 08:00 Heparin Sodium Lock Flush 500 Units/5 Ml Syringe IV PUSH PRN PRN see comments below Sodium Chloride 1,000 mls @ 125 mls/hr 01/01/24 11:45 01/02/24 23:50 Normal Saline Iv IV CONT 125 mls/hr .Q8H JERROD Administration Dextrose 1,000 mls @ 100 mls/hr 01/01/24 17:03 Dextrose 5% 1,000 Ml IVPB PRN PRN Hypoglycemia Protocol Cefepime HCl 2 gm in 50 mls @ 100 mls/hr 01/02/24 21:00 01/02/24 21:43 Maxipime 2 Gm/Ns 50 Ml IVPB Infused Q12HR JERROD Infusion Azithromycin 500 mg in 250 mls @ 250 mls/hr 01/02/24 16:00 01/02/24 17:45 Zithromax IVPB 01/05/24 16:59 250 mls/hr DAILY@1600 [facility] Administration Insulin Aspart 3 - 6 units 01/02/24 08:00 01/02/24 17:49 Insulin Aspart (*Bkc) 100 Units/Ml SUB-Q Not Given TIDWM [facility] Protocol Insulin Aspart 1 - 3 units 01/01/24 21:00 01/02/24 21:18 Insulin Aspart (*Bkc) 100 Units/Ml SUB-Q 2 units HS [facility] Administration Protocol Insulin Glargine 12 units 01/01/24 21:00 01/02/24 21:17 Insulin Glargine (*Bkc) 100 Units/Ml 0.15 units/kg (12 units) 12 units SUB-Q Administration [facility] Levothyroxine Sodium 50 mcg 01/02/24 06:30 01/03/24 05:56 Levothyroxine Sodium 50 Mcg Tablet PO 50 mcg DAILY@0630 JERROD Administration Lorazepam 0.5 mg 01/02/24 09:00 01/02/24 17:45 Lorazepam (*Crx) 0.5 Mg Tablet PO 0.5 mg TID [facility] Administration Pantoprazole Sodium 40 mg 01/02/24 09:00 01/02/24 10:27 Pantoprazole 40 Mg Tablet PO Not Given QAM JERROD Rosuvastatin Calcium 20 mg 01/02/24 09:00 01/02/24 10:29 Rosuvastatin 20 Mg Tablet PO Not Given DAILY JERROD Sodium Chloride 10 ml 01/02/24 14:00 01/03/24 05:58 Central Line Flush IV PUSH 10 ml Q8HR JERROD Administration Radiology Results: ITS Impressions Chest CTA 01/01/24 10:26 IMPRESSION: 1. Worsened airspace and groundglass opacities in left lower lobe, consistent with pneumonia. Stable airspace opacities in the upper lobes, consistent with radiation pneumonitis versus pneumonia. 2. Stable 14 mm nodule in right upper lobe, consistent with primary bronchogenic carcinoma. 3. Severe emphysema. 4. Stable moderate-sized loculated right pleural effusion. 5. Stable small left pleural effusion with pleural catheter. 6. No pulmonary embolus. Chest X-Ray 01/02/24 15:00 IMPRESSION: 1. Small pleural effusions with pleural catheter on the left. 2. Airspace opacities in left lower lobe, consistent with pneumonia. 3. Airspace opacities in the upper lobes, consistent with radiation pneumonitis versus pneumonia. 4. Emphysema. Thoracentesis Ultrasound 01/02/24 15:06 IMPRESSION: 1. Successful ultrasound-guided thoracentesis yielding 1100 mL of reddish fluid. Labs Labs: Laboratory Results - last 24 hr 01/02/24 01/02/24 01/02/24 10:32 17:48 21:12 WBC 5.7 RBC 2.44 L Hgb 7.1 L Hct 23.3 L MCV 95.5 MCH 29.1 MCHC 30.5 L RDW 19.6 H Plt Count 121 L MPV 9.5 Sodium 138 Potassium 4.1 Chloride 108 H Carbon Dioxide 21 L Anion Gap 9 BUN 16 Creatinine 1.00 Estim Creat Clear Calc 50 Estimated GFR > 60 Glucose 153 H POC Capillary Glucose 179 H 270 H Calcium 8.5 Magnesium 1.6 Total Bilirubin 0.3 AST 14 L ALT 10 Alkaline Phosphatase 69 Total Protein 7.0 Albumin 3.1 L 01/03/24 04:46 WBC 4.7 RBC 2.46 L Hgb 7.0 L Hct 23.0 L MCV 93.5 MCH 28.5 MCHC 30.4 L RDW 19.3 H Plt Count 121 L MPV 9.4 Sodium 139 Potassium 3.9 Chloride 108 H Carbon Dioxide 20 L Anion Gap 11 BUN 17 Creatinine 1.00 Estim Creat Clear Calc 50 Estimated GFR > 60 Glucose 169 H POC Capillary Glucose Calcium 8.2 L Magnesium Total Bilirubin 0.2 AST 30 ALT 21 Alkaline Phosphatase 66 Total Protein 7.0 Albumin 3.1 L Quality VTE Prophylaxis VTE prophylaxis: pharmacologic ordered (lovenox ordered )
[2024-01-03] MEDS: IPRATROPIUM 0.5 MG/ALBUTEROL SULFATE 2.5 MG AMPUL.NEB 3 ML INHALATION ×3 (07:51→21:47)
[2024-01-03] MEDS: BUDESONIDE RESPULE NEB 0.5 MG/2 ML AMP INHALATION ×2 (07:51→21:48)
[2024-01-03 08:35] LABS: Glucose Point of Care 187 mg/dl (65-105)
--- NOTE | 2024-01-03 08:52 | P.PNPL_ITS ---
Progress Note: A&P Assessment and Plan (1) Pneumonia: Code(s): J18.9 - Pneumonia, unspecified organism Status: Acute Assessment and Plan: This 83-year-old man, with a history of lung cancer treated with chemoradiation and also severe emphysema, has had bilateral pleural effusions managed with a PleurX catheter for drainage on the left side and a chronic effusion on the right. He presented with increasing shortness of breath, due to left lower lobe pneumonia. Approximately five weeks ago, he was hospitalized. Given his immunocompromised status, it is important to consider coverage for Gram-negative organisms due to possible healthcare-associated pneumonia. The patient exhibits no leukocytosis and appears to be responding well to current antibiotic regimen. He continues to have cough with yellow sputum although he is less short of breath. He does not look septic. He has no leukocytosis but has thrombocytopenia and anemia. (2) Chronic obstructive pulmonary disease: Code(s): J44.9 - Chronic obstructive pulmonary disease, unspecified Status: Acute (3) Acute hypoxemic respiratory failure: Code(s): J96.01 - Acute respiratory failure with hypoxia Status: Acute (4) Type 2 diabetes mellitus: Code(s): E11.9 - Type 2 diabetes mellitus without complications Status: Acute (5) Non-small cell lung cancer: Onset Date: 09/2022 Code(s): C34.90 - Malignant neoplasm of unspecified part of unspecified bronchus or lung Status: Acute (6) Obstructive sleep apnea: Code(s): G47.33 - Obstructive sleep apnea (adult) (pediatric) Status: Acute (7) Thrombocytopenia: Code(s): D69.6 - Thrombocytopenia, unspecified Status: Acute (8) Adenocarcinoma, lung: Code(s): C34.90 - Malignant neoplasm of unspecified part of unspecified bronchus or lung Status: Acute (9) Pleural effusion: Code(s): J90 - Pleural effusion, not elsewhere classified Status: Chronic Assessment and Plan: The patient has chronic bilateral pleural effusions, with a PleurX catheter inserted to drain the left side. Per oncologist's report, the pleural fluid on the left was not related to the lung cancer. The patient reported that he has not needed to drain any fluid from the left chest cavity via the PleurX catheter since catheter insertion. A chest CT shows a residual left pleural effusion vs pleural scarring. Regarding the right pleural effusion, the chest CT indicates it is of moderate size with some loculation. There is no previous pleural fluid analysis available to characterize the right pleural effusion. Patient had thoracentesis yesterday and an approximately 1 L of reddish fluid was removed. Unfortunately no orders to analyze the fluid. Plan: Will continue to monitor size of right pleural effusion. , repeat chest x-ray in a.m. Subjective Date/time seen: 01/03/24 08:52 Interval history: Patient continues to have cough with green sputum production. Underwent thoracentesis yesterday, unfortunately no fluid sent for testing. He has no other new respiratory symptoms. He remains afebrile;; shortness of breath less following thoracentesis. Exam Narrative: GENERAL APPEARANCE: Well developed, well nourished, alert and cooperative, and appears to be in no acute distress SKIN: Inspection of the skin reveals no rashes, ulcerations or petechiae. HEENT: Sclerae anicteric and conjunctivae pink and moist. Extraocular movements were intact and pupils were equal, round, and reactive to light. The oral mucosa, hard and soft palate, tongue and posterior pharynx were normal. NECK: Supple. There was no thyroid enlargement, and no tenderness, or masses were felt. LUNGS: Distant breath sounds bilaterally, rare crackles left base posteriorly no wheezing CARDIAC: There was a regular rate and rhythm without any murmurs, gallops, rubs. ABDOMEN: Soft and nontender with normal bowel sounds. There was no organomegaly. LYMPH NODES: No lymphadenopathy was appreciated in the neck. EXTREMITIES: No cyanosis, clubbing or edema. NEUROLOGIC: Alert and oriented x 3. Normal affect. Objective Data Vital Signs Vital Signs: Vital Signs - 24 hr 01/02/24 10:34 01/02/24 14:20 01/02/24 14:26 Temperature Pulse Rate 103 H 104 H Respiratory Rate 20 20 Blood Pressure Pulse Oximetry 95 Oxygen Delivery Nasal Cannula Oxygen Flow Rate 2 Fraction of Inspired Oxygen 01/02/24 20:52 01/02/24 20:55 01/02/24 21:04 Temperature Pulse Rate 111 H 86 Respiratory Rate 20 20 Blood Pressure Pulse Oximetry 87 L Oxygen Delivery Nasal Cannula Oxygen Flow Rate 3 Fraction of Inspired Oxygen 32 01/02/24 21:06 01/02/24 20:00 01/02/24 22:03 Temperature 36.4 C Pulse Rate 105 H Respiratory Rate 22 H Blood Pressure 128/66 Pulse Oximetry 94 94 95 Oxygen Delivery Nasal Cannula CPAP Oxygen Flow Rate 4 Fraction of Inspired Oxygen 01/03/24 04:53 01/03/24 03:00 01/02/24 20:56 Temperature 36.3 C L Pulse Rate 92 Respiratory Rate 18 Blood Pressure 119/60 Pulse Oximetry 94 94 93 Oxygen Delivery CPAP Nasal Cannula Oxygen Flow Rate 4 Fraction of Inspired Oxygen 36 01/03/24 07:52 01/03/24 07:52 01/03/24 08:10 Temperature Pulse Rate 100 91 Respiratory Rate 20 20 Blood Pressure Pulse Oximetry 93 Oxygen Delivery Nasal Cannula Oxygen Flow Rate 3 Fraction of Inspired Oxygen Intake/Output Intake/Output: Intake & Output 12/31/23 01/01/24 01/02/24 01/03/24 23:59 23:59 23:59 23:59 Intake Total 2840 2522 1200 Output Total 1400 2850 400 Balance 1440 -328 800 Meds/Results Medications: Active Medications Generic Name Dose Route Start Last Admin Trade Name Freq PRN Reason Stop Dose Admin Albuterol 2 puff 01/01/24 17:03 Albuterol Sulfate (*Sp) Aerosol 1 Puff INHALATION QID PRN shortness of breath or wheezing Albuterol/Ipratropium 3 ml 01/01/24 20:00 01/03/24 07:51 Ipratropium 0.5 Mg/Albuterol Sulfate 2.5 Mg Ampul.Neb 3 Ml INHALATION 3 ml TIDRT JERROD Administration Budesonide 0.5 mg 01/01/24 20:00 01/03/24 07:51 Budesonide Respule Neb 0.5 Mg/2 Ml Amp INHALATION 0.5 mg Q12HRT JERROD Administration Citalopram Hydrobromide 20 mg 01/02/24 09:00 01/02/24 10:26 Citalopram Hydrobromide 20 Mg Tablet PO Not Given DAILY JERROD Dextrose 12.5 gm 01/01/24 17:03 Dextrose 50% 25 Gm/50 Ml Syringe IV PUSH PRN PRN Hypoglycemia Protocol Enoxaparin Sodium 40 mg 01/02/24 09:00 01/02/24 10:26 Enoxaparin 40 Mg/0.4 Ml Syringe SUB-Q Not Given DAILY JERROD Glucagon 1 mg 01/01/24 17:03 Glucagon For Inj 1 Mg Vial IM PRN PRN Hypoglycemia Protocol Glucose 15 gm 01/01/24 17:03 Glucose Oral Gel 15 Gm Of Glucse In 37.5 Gm Tube PO PRN PRN Hypoglycemia Protocol Heparin Sodium (Beef Lung) 50 units 01/02/24 09:00 01/02/24 10:27 Heparin Flush 50 Units/5 Ml Syringe IV PUSH Not Given QAM JERROD Heparin Sodium (Beef Lung) 50 units 01/02/24 08:00 Heparin Flush 50 Units/5 Ml Syringe IV PUSH PRN PRN after intermittent infusion Heparin Sodium (Beef Lung) 50 units 01/02/24 08:00 Heparin Flush 50 Units/5 Ml Syringe IV PUSH PRN PRN after blood draws Heparin Sodium (Porcine) 500 units 01/02/24 08:00 Heparin Sodium Lock Flush 500 Units/5 Ml Syringe IV PUSH PRN PRN see comments below Sodium Chloride 1,000 mls @ 125 mls/hr 01/01/24 11:45 01/03/24 08:15 Normal Saline Iv IV CONT Infused .Q8H JERROD Infusion Dextrose 1,000 mls @ 100 mls/hr 01/01/24 17:03 Dextrose 5% 1,000 Ml IVPB PRN PRN Hypoglycemia Protocol Cefepime HCl 2 gm in 50 mls @ 100 mls/hr 01/02/24 21:00 01/02/24 21:43 Maxipime 2 Gm/Ns 50 Ml IVPB Infused Q12HR JERROD Infusion Azithromycin 500 mg in 250 mls @ 250 mls/hr 01/02/24 16:00 01/02/24 17:45 Zithromax IVPB 01/05/24 16:59 250 mls/hr DAILY@1600 [facility] Administration Insulin Aspart 3 - 6 units 01/02/24 08:00 01/03/24 08:32 Insulin Aspart (*Bkc) 100 Units/Ml SUB-Q Not Given TIDWM [facility] Protocol Insulin Aspart 1 - 3 units 01/01/24 21:00 01/02/24 21:18 Insulin Aspart (*Bkc) 100 Units/Ml SUB-Q 2 units HS JERROD Administration Protocol Insulin Glargine 12 units 01/01/24 21:00 01/02/24 21:17 Insulin Glargine (*Bkc) 100 Units/Ml 0.15 units/kg (12 units) 12 units SUB-Q Administration HS [facility] Levothyroxine Sodium 50 mcg 01/02/24 06:30 01/03/24 05:56 Levothyroxine Sodium 50 Mcg Tablet PO 50 mcg DAILY@0630 JERROD Administration Lorazepam 0.5 mg 01/02/24 09:00 01/02/24 17:45 Lorazepam (*Crx) 0.5 Mg Tablet PO 0.5 mg TID JERROD Administration Pantoprazole Sodium 40 mg 01/02/24 09:00 01/02/24 10:27 Pantoprazole 40 Mg Tablet PO Not Given QAM JERROD Rosuvastatin Calcium 20 mg 01/02/24 09:00 01/02/24 10:29 Rosuvastatin 20 Mg Tablet PO Not Given DAILY JERROD Sodium Chloride 10 ml 01/02/24 14:00 01/03/24 05:58 Central Line Flush IV PUSH 10 ml Q8HR JERROD Administration Radiology Results: ITS Impressions Chest CTA 01/01/24 10:26 IMPRESSION: 1. Worsened airspace and groundglass opacities in left lower lobe, consistent with pneumonia. Stable airspace opacities in the upper lobes, consistent with radiation pneumonitis versus pneumonia. 2. Stable 14 mm nodule in right upper lobe, consistent with primary bronchogenic carcinoma. 3. Severe emphysema. 4. Stable moderate-sized loculated right pleural effusion. 5. Stable small left pleural effusion with pleural catheter. 6. No pulmonary embolus. Chest X-Ray 01/02/24 15:00 IMPRESSION: 1. Small pleural effusions with pleural catheter on the left. 2. Airspace opacities in left lower lobe, consistent with pneumonia. 3. Airspace opacities in the upper lobes, consistent with radiation pneumonitis versus pneumonia. 4. Emphysema. Thoracentesis Ultrasound 01/02/24 15:06 IMPRESSION: 1. Successful ultrasound-guided thoracentesis yielding 1100 mL of reddish fluid. Labs Labs: Laboratory Results - last 24 hr 01/02/24 01/02/24 01/02/24 10:32 17:48 21:12 WBC 5.7 RBC 2.44 L Hgb 7.1 L Hct 23.3 L MCV 95.5 MCH 29.1 MCHC 30.5 L RDW 19.6 H Plt Count 121 L MPV 9.5 Sodium 138 Potassium 4.1 Chloride 108 H Carbon Dioxide 21 L Anion Gap 9 BUN 16 Creatinine 1.00 Estim Creat Clear Calc 50 Estimated GFR > 60 Glucose 153 H POC Capillary Glucose 179 H 270 H Calcium 8.5 Magnesium 1.6 Total Bilirubin 0.3 AST 14 L ALT 10 Alkaline Phosphatase 69 Total Protein 7.0 Albumin 3.1 L 01/03/24 01/03/24 04:46 08:19 WBC 4.7 RBC 2.46 L Hgb 7.0 L Hct 23.0 L MCV 93.5 MCH 28.5 MCHC 30.4 L RDW 19.3 H Plt Count 121 L MPV 9.4 Sodium 139 Potassium 3.9 Chloride 108 H Carbon Dioxide 20 L Anion Gap 11 BUN 17 Creatinine 1.00 Estim Creat Clear Calc 50 Estimated GFR > 60 Glucose 169 H POC Capillary Glucose 187 H Calcium 8.2 L Magnesium Total Bilirubin 0.2 AST 30 ALT 21 Alkaline Phosphatase 66 Total Protein 7.0 Albumin 3.1 L
[2024-01-03] MEDS: PANTOPRAZOLE 40 MG TABLET PO (08:54)
[2024-01-03] MEDS: CEFEPIME 2 GM/NS 50 ML 2 GM/50 ML BAG IVPB ×2 (08:54→20:50)
[2024-01-03] MEDS: ROSUVASTATIN 20 MG TABLET PO (08:54)
[2024-01-03] MEDS: ENOXAPARIN 40 MG/0.4 ML SYRINGE SUB-Q (08:54)
[2024-01-03] MEDS: CITALOPRAM HYDROBROMIDE 20 MG TABLET PO (08:55)
[2024-01-03] MEDS: LORazepam (*CRX) 0.5 MG TABLET PO ×3 (08:55→17:50)
[2024-01-03] MEDS: SODIUM CHLORIDE 0.9% IV 1,000 ML 125 ML IV CONT (08:59)
[2024-01-03 12:08] LABS: Glucose Point of Care 325 mg/dl (65-105)
[2024-01-03] MEDS: INSULIN ASPART (*BKC) 100 UNITS/ML SUB-Q ×3 (12:24→20:50)
[2024-01-03 17:13] LABS: Glucose Point of Care 264 mg/dl (65-105)
[2024-01-03] MEDS: AZITHROMYCIN 500 MG/NS 250 ML 500 MG/250 ML BAG 250 MG IVPB (17:50)
[2024-01-03] MEDS: INSULIN GLARGINE (*BKC) 100 UNITS/ML 15 UNITS SUB-Q (20:51)
--- NOTE | 2024-01-03 23:08 | PC.NURSE ---
This patient, Michele Watson, was transferred to [[facility] ] on 01/03/24 at 2310. Personal belongings sent with patient. Report given to [ Clarice]. Appropriate documentation sent with patient.
[2024-01-04] VITALS (17 sets, daily range): BP systolic 105–129; BP diastolic 57–75; PULSE 82–101; RESP 12–24; TEMP 36.3–36.9; O2SAT 92–97
[2024-01-04] MEDS: CENTRAL LINE FLUSH 10 ML IV PUSH ×3 (05:37→20:04)
[2024-01-04] MEDS: LEVOTHYROXINE SODIUM 50 MCG TABLET PO (05:37)
[2024-01-04 06:04] LABS: Hematocrit 22.5 % (42.0-52.0); Mean Corpuscular HGB Conc 30.7 g/dl (32-36); Mean Corpuscular Hemoglobin 28.5 pg (26-34); Mean Platelet Volume 9.4 fl (7.4-10.4); Platelet Count Result 121 k/mm3 (150-375); Red Blood Count 2.42 M/mm3 (4.6-6.20); White Blood Count 4.2 K/mm3 (4.5-10.0)
[2024-01-04 06:17] LABS: Hemoglobin 6.9 g/dL (14.0-18.0)
[2024-01-04 06:20] LABS: Alanine Aminotransferase 37 U/L (6-50); Albumin Level 3.1 g/dL (3.5-5.1); Alkaline Phosphatase 72 U/L (38-126); Anion Gap 10 mmol/L (4-12); Aspartate Amino Transferase 35 U/L (17-59); Bilirubin,Total 0.2 mg/dL (0.2-1.3); Blood Urea Nitrogen 17 mg/dL (9-20); Calcium 8.4 mg/dL (8.4-10.2); Carbon Dioxide 22 mmol/L (22-30); Chloride 106 mmol/L (98-107); Estimated CRCL calculation 42 ml/min; Estimated Glomerular Filt Rate 58; Glucose 188 mg/dL (65-110); Potassium 3.9 mmol/L (3.4-5.0); Sodium 138 mmol/L (137-145)
[2024-01-04 06:49] LABS: Glucose Point of Care 261 mg/dl (65-105)
[2024-01-04] MEDS: BUDESONIDE RESPULE NEB 0.5 MG/2 ML AMP INHALATION ×2 (06:51→20:17)
[2024-01-04] MEDS: IPRATROPIUM 0.5 MG/ALBUTEROL SULFATE 2.5 MG AMPUL.NEB 3 ML INHALATION ×3 (06:51→20:17)
--- NOTE | 2024-01-04 07:41 | P.PNIM_ITS ---
Progress Note: A&P Assessment and Plan (1) Acute and chronic respiratory failure with hypoxia: Code(s): J96.21 - Acute and chronic respiratory failure with hypoxia Status: Acute Assessment and Plan: * Secondary to pneumonia/COPD exacerbation/loculated pleural effusions/HX lung cancer * Wears 3L NC at night only now having to wear all the time * Will likely need home O2 walk study * Pulmonology consulted * CT scan showed radiation pneumonitis versus pneumonia severe emphysema and no change to 1.4 cm nodule the right upper lobe * DuoNebs (2) Pneumonia: Code(s): J18.9 - Pneumonia, unspecified organism Status: Acute Assessment and Plan: * HX lung cancer/COPD/Current smoker and hospitalization past 30-days * CT scan Worsened airspace and groundglass opacities in left lower lobe, consistent with pneumonia * Bronchodilators. * Chest x-ray/CT scan reviewed * incentive spirometry while awake. * sputum culture ordered * Blood cultures x2 NGTD * Initially on IV meropenem pulmonology requesting azithromycin and cefepime * supplemental oxygen therapy to * monitor for signs of in sepsis * Smoking cessation counseling done * Pulmonology consulted * Repeat xray in the am 01/03 (3) Chronic obstructive pulmonary disease: Code(s): J44.9 - Chronic obstructive pulmonary disease, unspecified Status: Acute Assessment and Plan: * CT showing severe emphysema/history of lung cancer stable 1.4 cm nodule the right upper follows with [facility] outpatient * Bronchodilators. * Chest x-ray reviewed * incentive spirometry while awake. * steroids initiated * azithromycin 500 x 1 day/250 daily * supplemental oxygen therapy to maintain oxygen 92%/3L at night but need all the time * Pulmonary rehab if indicated. * Disease management following GOLD guidelines. * Repeat hospitalization risk evaluation per [facility] * Oxygen evaluation for all day use * Smoking cessation counseling done * Follow-up with [facility] as an outpatient (4) Pleural effusion: Code(s): J90 - Pleural effusion, not elsewhere classified Status: Chronic Assessment and Plan: * RT pleural effusion noted on CT * Thoracentesis today for comfort * Known history of lung cancer likely cause of loculated pleural effusion * It does not appear fluid studies were ordered for right thoracentesis yesterday (01/02). Added on studies and will check with lab to see if there is any fluid for sampling. * repeat x-ray in the am (5) Adenocarcinoma, lung: Code(s): C34.90 - Malignant neoplasm of unspecified part of unspecified bronchus or lung Status: Acute Assessment and Plan: * Post radiation and cancer treatment * Follows with Dr. Willingham * CT scan showing stable 1.4 cm right upper lobe nodule * Will need to follow up with Oncology outpatient for continued monitoring (6) Type 2 diabetes mellitus: Code(s): E11.9 - Type 2 diabetes mellitus without complications Status: Acute Assessment and Plan: * Accu-Cheks a.cPili HS * sliding scale insulin * hold oral diabetic medications * resume patient's home long-acting * Diabetic diet * Optimize Trevor inhibitors and statins. * Watch for hypoglycemia/hypoglycemic protocol ordered (7) Tobacco abuse: Code(s): Z72.0 - Tobacco use Status: Acute Assessment and Plan: * Patient states he quit smoking 3 weeks ago * Provided smoking cessation education (8) Chronic anemia: Code(s): D64.9 - Anemia, unspecified Status: Chronic Assessment and Plan: Hemoglobin 6.9 g/dl today. Normal MCV. * Recent TIBC and Fe from 11/30/23: Iron 48, TIBC 239, 20% saturation * Vitamin B12 and folate from 11/30/23: B12 847, folate 4.6 * No overt signs of bleeding, occult blood negative from 11/17/23 * Suspect anemia of chronic disease * Reticulocyte pending * transfuse 1 unit of pRBC now Plan Code status: Full code per patient DVT prophylaxis: Lovenox Stress ulcer prophylaxis: NA PT/OT notes: Ambulatory Disposition: Patient was admitted to the medical unit for acute respiratory failure with hypoxia secondary to pneumonia/COPD exacerbation and pleural e ffusions. Plan for thoracentesis today and continue with antibiotic coverage pending cultures patient recently hospitalized treating as hospital-acquired. Patient currently wearing 3 L at all times but states he only wears 3 L at night at home will need to do a home oxygen walk study prior to discharge. He has not had a bowel movement in the last few days. Started on miralax today. Subjective Date/time seen: 01/04/24 07:41 Interval history: No acute events overnight. He remains on 2-3 L chronically. He continues to who I do see colored sputum. Complains of dyspnea with exertion. Hemoglobin was low this morning he is receiving a unit of blood. He Review of Systems Review of Systems: All systems reviewed & are unremarkable except as noted in HPI and below Exam Narrative: General: appears comfortable, in no acute distress on 2 L NC Respiratory: breathing is unlabored with even chest rise/fall, lungs are clear and diminished without wheezing, rhonchi, and crackles Cardiovascular: Rate and rhythm regular, normal s1s2, no murmur Abdomen: Soft, round, non-tender, active bowel sounds Extremities: No cyanosis, edema, clubbing. Pulses 2/2 Neuro: A&O x 4 Skin: Warm, dry, intact Objective Data Vital Signs Vital Signs: Vital Signs - 24 hr 01/03/24 07:52 01/03/24 07:52 01/03/24 08:10 Temperature Pulse Rate 100 91 Respiratory Rate 20 20 Blood Pressure Pulse Oximetry 93 Oxygen Delivery Nasal Cannula Oxygen Flow Rate 3 01/03/24 08:54 01/03/24 14:30 01/03/24 14:40 Temperature Pulse Rate 112 H 88 Respiratory Rate 20 20 Blood Pressure Pulse Oximetry 95 Oxygen Delivery Nasal Cannula Oxygen Flow Rate 2 01/03/24 15:13 01/03/24 21:51 01/03/24 21:52 Temperature 97.4 F L Pulse Rate 62 84 Respiratory Rate 18 18 Blood Pressure 114/79 Pulse Oximetry 93 95 Oxygen Delivery Nasal Cannula Oxygen Flow Rate 3 01/03/24 21:52 01/03/24 21:49 01/03/24 20:00 Temperature 97.6 F Pulse Rate 89 Respiratory Rate 16 Blood Pressure 115/55 L Pulse Oximetry 94 95 Oxygen Delivery CPAP Nasal Cannula Oxygen Flow Rate 2 01/03/24 22:05 01/03/24 22:00 01/04/24 06:00 Temperature 98.7 F 98.2 F Pulse Rate 86 90 90 Respiratory Rate 18 12 12 Blood Pressure 113/64 114/64 Pulse Oximetry 95 97 Oxygen Delivery Oxygen Flow Rate Intake/Output Intake/Output: Intake & Output 01/01/24 01/02/24 01/03/24 01/04/24 23:59 23:59 23:59 23:59 Intake Total 2840 2772 2470 Output Total 1400 2850 1100 425 Balance 0780 -83 1370 -425 Meds/Results Medications: Active Medications Generic Name Dose Route Start Last Admin Trade Name Freq PRN Reason Stop Dose Admin Albuterol 2 puff 01/01/24 17:03 Albuterol Sulfate (*Sp) Aerosol 1 Puff INHALATION QID PRN shortness of breath or wheezing Albuterol/Ipratropium 3 ml 01/01/24 20:00 01/04/24 06:51 Ipratropium 0.5 Mg/Albuterol Sulfate 2.5 Mg Ampul.Neb 3 Ml INHALATION 3 ml TIDRT JERROD Administration Budesonide 0.5 mg 01/01/24 20:00 01/04/24 06:51 Budesonide Respule Neb 0.5 Mg/2 Ml Amp INHALATION 0.5 mg Q12HRT JERROD Administration Citalopram Hydrobromide 20 mg 01/02/24 09:00 01/03/24 08:55 Citalopram Hydrobromide 20 Mg Tablet PO 20 mg DAILY JERROD Administration Dextrose 12.5 gm 01/01/24 17:03 Dextrose 50% 25 Gm/50 Ml Syringe IV PUSH PRN PRN Hypoglycemia Protocol Enoxaparin Sodium 40 mg 01/02/24 09:00 01/03/24 08:54 Enoxaparin 40 Mg/0.4 Ml Syringe SUB-Q 40 mg DAILY JERROD Administration Glucagon 1 mg 01/01/24 17:03 Glucagon For Inj 1 Mg Vial IM PRN PRN Hypoglycemia Protocol Glucose 15 gm 01/01/24 17:03 Glucose Oral Gel 15 Gm Of Glucse In 37.5 Gm Tube PO PRN PRN Hypoglycemia Protocol Heparin Sodium (Beef Lung) 50 units 01/02/24 09:00 01/03/24 09:02 Heparin Flush 50 Units/5 Ml Syringe IV PUSH 50 units QAM JERROD Administration Heparin Sodium (Beef Lung) 50 units 01/02/24 08:00 Heparin Flush 50 Units/5 Ml Syringe IV PUSH PRN PRN after intermittent infusion Heparin Sodium (Beef Lung) 50 units 01/02/24 08:00 Heparin Flush 50 Units/5 Ml Syringe IV PUSH PRN PRN after blood draws Heparin Sodium (Porcine) 500 units 01/02/24 08:00 Heparin Sodium Lock Flush 500 Units/5 Ml Syringe IV PUSH PRN PRN see comments below Dextrose 1,000 mls @ 100 mls/hr 01/01/24 17:03 Dextrose 5% 1,000 Ml IVPB PRN PRN Hypoglycemia Protocol Cefepime HCl 2 gm in 50 mls @ 100 mls/hr 01/02/24 21:00 01/03/24 20:50 Maxipime 2 Gm/Ns 50 Ml IVPB 100 mls/hr Q12HR JERROD Administration Azithromycin 500 mg in 250 mls @ 250 mls/hr 01/02/24 16:00 01/03/24 17:50 Zithromax IVPB 01/05/24 16:59 250 mls/hr DAILY@1600 JERROD Administration Sodium Chloride 250 mls @ 30 mls/hr 01/04/24 07:36 Normal Saline Iv IV CONT 01/04/24 15:55 .Q8H20M STA Insulin Aspart 1 - 3 units 01/01/24 21:00 01/03/24 20:50 Insulin Aspart (*Bkc) 100 Units/Ml SUB-Q 2 units HS JERROD Administration Protocol Insulin Aspart 4 - 8 units 01/03/24 17:00 01/03/24 17:50 Insulin Aspart (*Bkc) 100 Units/Ml SUB-Q 5 units TIDWM JERROD Administration Protocol Insulin Glargine 15 units 01/03/24 21:00 01/03/24 20:51 Insulin Glargine (*Bkc) 100 Units/Ml SUB-Q 15 units HS JERROD Administration Levothyroxine Sodium 50 mcg 01/02/24 06:30 01/04/24 05:37 Levothyroxine Sodium 50 Mcg Tablet PO 50 mcg DAILY@0630 JERROD Administration Lorazepam 0.5 mg 01/02/24 09:00 01/03/24 17:50 Lorazepam (*Crx) 0.5 Mg Tablet PO 0.5 mg TID JERROD Administration Pantoprazole Sodium 40 mg 01/02/24 09:00 01/03/24 08:54 Pantoprazole 40 Mg Tablet PO 40 mg QAM JERROD Administration Polyethylene Glycol 17 gm 01/03/24 13:05 Polyethylene Glycol 3350 17 Gm Powd.Pack PO QAM PRN Constipation Rosuvastatin Calcium 20 mg 01/02/24 09:00 01/03/24 08:54 Rosuvastatin 20 Mg Tablet PO 20 mg DAILY JERROD Administration Sodium Chloride 10 ml 01/02/24 14:00 01/04/24 05:37 Central Line Flush IV PUSH 10 ml Q8HR JERROD Administration Radiology Results: ITS Impressions Chest CTA 01/01/24 10:26 IMPRESSION: 1. Worsened airspace and groundglass opacities in left lower lobe, consistent with pneumonia. Stable airspace opacities in the upper lobes, consistent with radiation pneumonitis versus pneumonia. 2. Stable 14 mm nodule in right upper lobe, consistent with primary bronchogenic carcinoma. 3. Severe emphysema. 4. Stable moderate-sized loculated right pleural effusion. 5. Stable small left pleural effusion with pleural catheter. 6. No pulmonary embolus. Chest X-Ray 01/02/24 15:00 IMPRESSION: 1. Small pleural effusions with pleural catheter on the left. 2. Airspace opacities in left lower lobe, consistent with pneumonia. 3. Airspace opacities in the upper lobes, consistent with radiation pneumonitis versus pneumonia. 4. Emphysema. Thoracentesis Ultrasound 01/02/24 15:06 IMPRESSION: 1. Successful ultrasound-guided thoracentesis yielding 1100 mL of reddish fluid. Labs Labs: Laboratory Results - last 24 hr 01/03/24 01/03/24 01/03/24 08:19 12:02 17:10 WBC RBC Hgb Hct MCV MCH MCHC RDW Plt Count MPV Sodium Potassium Chloride Carbon Dioxide Anion Gap BUN Creatinine Estim Creat Clear Calc Estimated GFR Glucose POC Capillary Glucose 187 H 325 H 264 H Calcium Total Bilirubin AST ALT Alkaline Phosphatase Total Protein Albumin 01/03/24 01/04/24 20:35 05:39 WBC 4.2 L RBC 2.42 L Hgb 6.9 L* Hct 22.5 L MCV 93.0 MCH 28.5 MCHC 30.7 L RDW 19.0 H Plt Count 121 L MPV 9.4 Sodium 138 Potassium 3.9 Chloride 106 Carbon Dioxide 22 Anion Gap 10 BUN 17 Creatinine 1.20 Estim Creat Clear Calc 42 Estimated GFR 58 L Glucose 188 H POC Capillary Glucose 261 H Calcium 8.4 Total Bilirubin 0.2 AST 35 ALT 37 Alkaline Phosphatase 72 Total Protein 7.0 Albumin 3.1 L Quality VTE Prophylaxis VTE prophylaxis: pharmacologic ordered (lovenox ordered )
[2024-01-04 08:33] LABS: Glucose Point of Care 189 mg/dl (65-105)
[2024-01-04] MEDS: ENOXAPARIN 40 MG/0.4 ML SYRINGE SUB-Q (08:37)
[2024-01-04] MEDS: CITALOPRAM HYDROBROMIDE 20 MG TABLET PO (08:37)
[2024-01-04] MEDS: LORazepam (*CRX) 0.5 MG TABLET PO ×3 (08:37→16:49)
[2024-01-04] MEDS: PANTOPRAZOLE 40 MG TABLET PO (08:37)
[2024-01-04] MEDS: ROSUVASTATIN 20 MG TABLET PO (08:37)
[2024-01-04] MEDS: CEFEPIME 2 GM/NS 50 ML 2 GM/50 ML BAG IVPB ×2 (08:39→20:04)
[2024-01-04 08:55] LABS: Reticulocyte Hemoglobin Conten 23.1 pg (28.2-36.6); Reticulocyte Percent 1.28 % (0.7-4.3); Reticulocytes Absolute 0.03 10^6/uL (0.02-0.10)
--- NOTE | 2024-01-04 09:18 | PM.PNPUL ---
Progress Note: A&P Assessment and Plan (1) Pneumonia: Code(s): J18.9 - Pneumonia, unspecified organism Status: Acute Assessment and Plan: This 83-year-old man, with a history of lung cancer treated with chemoradiation and also severe emphysema, has had bilateral pleural effusions managed with a PleurX catheter for drainage on the left side and a chronic effusion on the right. He presented with increasing shortness of breath, due to left lower lobe pneumonia. Approximately five weeks ago, he was hospitalized. Given his immunocompromised status, it is important to consider coverage for Gram-negative organisms due to possible healthcare-associated pneumonia. The patient exhibits no leukocytosis and appears to be responding well to current antibiotic regimen. He continues to have cough with yellow sputum although he is less short of breath. He does not look septic. He has no leukocytosis but has thrombocytopenia and anemia. (2) Chronic obstructive pulmonary disease: Code(s): J44.9 - Chronic obstructive pulmonary disease, unspecified Status: Acute (3) Acute hypoxemic respiratory failure: Code(s): J96.01 - Acute respiratory failure with hypoxia Status: Acute (4) Type 2 diabetes mellitus: Code(s): E11.9 - Type 2 diabetes mellitus without complications Status: Acute (5) Non-small cell lung cancer: Onset Date: 09/2022 Code(s): C34.90 - Malignant neoplasm of unspecified part of unspecified bronchus or lung Status: Acute (6) Obstructive sleep apnea: Code(s): G47.33 - Obstructive sleep apnea (adult) (pediatric) Status: Acute (7) Thrombocytopenia: Code(s): D69.6 - Thrombocytopenia, unspecified Status: Acute (8) Adenocarcinoma, lung: Code(s): C34.90 - Malignant neoplasm of unspecified part of unspecified bronchus or lung Status: Acute (9) Pleural effusion: Code(s): J90 - Pleural effusion, not elsewhere classified Status: Chronic Assessment and Plan: The patient has chronic bilateral pleural effusions, with a PleurX catheter inserted to drain the left side. Per oncologist's report, the pleural fluid on the left was not related to the lung cancer. The patient reported that he has not needed to drain any fluid from the left chest cavity via the PleurX catheter since catheter insertion. A chest CT shows a residual left pleural effusion vs pleural scarring. Regarding the right pleural effusion, the chest CT indicates it is of moderate size with some loculation. There is no previous pleural fluid analysis available to characterize the right pleural effusion. Patient had thoracentesis yesterday and an approximately 1 L of reddish fluid was removed. Unfortunately no orders to analyze the fluid. On today's chest x-ray there has been no significant change regarding these small pleural effusions bilaterally. Unclear whether the left lower lobe infiltrate seen on chest CT has improved with treatment Plan: Continue with current antibiotic regimen, supplemental oxygen, DVT prophylaxis. Out of bed to chair. Will reassess for home discharge in a.m. Subjective Date/time seen: 01/04/24 09:18 Interval history: Patient has no new respiratory symptoms but continues to have cough with yellow sputum production. No change in his shortness of breath. Afebrile, remaining on oxygen via nasal cannula. Spends most of the day in bed. Review of Systems Review of Systems: All systems reviewed & are unremarkable except as noted in HPI and below (HPI and below) Exam Narrative: GENERAL APPEARANCE: Well developed, well nourished, alert and cooperative, and appears to be in no acute distress SKIN: Inspection of the skin reveals no rashes, ulcerations or petechiae. HEENT: Sclerae anicteric and conjunctivae pink and moist. Extraocular movements were intact and pupils were equal, round, and reactive to light. The oral mucosa, hard and soft palate, tongue and posterior pharynx were normal. NECK: Supple. There was no thyroid enlargement, and no tenderness, or masses were felt. LUNGS: Distant breath sounds bilaterally, rare crackles left base posteriorly no wheezing CARDIAC: There was a regular rate and rhythm without any murmurs, gallops, rubs. ABDOMEN: Soft and nontender with normal bowel sounds. There was no organomegaly. LYMPH NODES: No lymphadenopathy was appreciated in the neck. EXTREMITIES: No cyanosis, clubbing or edema. NEUROLOGIC: Alert and oriented x 3. Normal affect. Objective Data Vital Signs Vital Signs: Vital Signs - 24 hr 01/03/24 14:30 01/03/24 14:40 01/03/24 15:13 Temperature 36.3 C L Pulse Rate 112 H 88 62 Respiratory Rate 20 20 18 Blood Pressure 114/79 Pulse Oximetry 93 Oxygen Delivery Oxygen Flow Rate 01/03/24 21:51 01/03/24 21:52 01/03/24 21:52 Temperature Pulse Rate 84 Respiratory Rate 18 Blood Pressure Pulse Oximetry 95 Oxygen Delivery Nasal Cannula CPAP Oxygen Flow Rate 3 01/03/24 21:49 01/03/24 20:00 01/03/24 22:05 Temperature 36.4 C Pulse Rate 89 86 Respiratory Rate 16 18 Blood Pressure 115/55 L Pulse Oximetry 94 95 Oxygen Delivery Nasal Cannula Oxygen Flow Rate 2 01/03/24 22:00 01/04/24 06:00 01/04/24 06:50 Temperature 37.1 C 36.8 C Pulse Rate 90 90 82 Respiratory Rate 12 12 18 Blood Pressure 113/64 114/64 Pulse Oximetry 95 97 92 Oxygen Delivery Nasal Cannula Oxygen Flow Rate 3 01/04/24 06:50 01/04/24 07:00 Temperature Pulse Rate 82 84 Respiratory Rate 18 18 Blood Pressure Pulse Oximetry Oxygen Delivery Oxygen Flow Rate Intake/Output Intake/Output: Intake & Output 01/01/24 01/02/24 01/03/24 01/04/24 23:59 23:59 23:59 23:59 Intake Total 2840 2772 2520 Output Total 1400 2850 1100 425 Balance 1440 -78 1420 -425 Meds/Results Medications: Active Medications Generic Name Dose Route Start Last Admin Trade Name Freq PRN Reason Stop Dose Admin Albuterol 2 puff 01/01/24 17:03 Albuterol Sulfate (*Sp) Aerosol 1 Puff INHALATION QID PRN shortness of breath or wheezing Albuterol/Ipratropium 3 ml 01/01/24 20:00 01/04/24 06:51 Ipratropium 0.5 Mg/Albuterol Sulfate 2.5 Mg Ampul.Neb 3 Ml INHALATION 3 ml TIDRT JERROD Administration Budesonide 0.5 mg 01/01/24 20:00 01/04/24 06:51 Budesonide Respule Neb 0.5 Mg/2 Ml Amp INHALATION 0.5 mg Q12HRT JERROD Administration Citalopram Hydrobromide 20 mg 01/02/24 09:00 01/04/24 08:37 Citalopram Hydrobromide 20 Mg Tablet PO 20 mg DAILY JERROD Administration Dextrose 12.5 gm 01/01/24 17:03 Dextrose 50% 25 Gm/50 Ml Syringe IV PUSH PRN PRN Hypoglycemia Protocol Enoxaparin Sodium 40 mg 01/02/24 09:00 01/04/24 08:37 Enoxaparin 40 Mg/0.4 Ml Syringe SUB-Q 40 mg DAILY JERROD Administration Glucagon 1 mg 01/01/24 17:03 Glucagon For Inj 1 Mg Vial IM PRN PRN Hypoglycemia Protocol Glucose 15 gm 01/01/24 17:03 Glucose Oral Gel 15 Gm Of Glucse In 37.5 Gm Tube PO PRN PRN Hypoglycemia Protocol Heparin Sodium (Beef Lung) 50 units 01/02/24 09:00 01/04/24 08:38 Heparin Flush 50 Units/5 Ml Syringe IV PUSH 50 units QAM JERROD Administration Heparin Sodium (Beef Lung) 50 units 01/02/24 08:00 Heparin Flush 50 Units/5 Ml Syringe IV PUSH PRN PRN after intermittent infusion Heparin Sodium (Beef Lung) 50 units 01/02/24 08:00 Heparin Flush 50 Units/5 Ml Syringe IV PUSH PRN PRN after blood draws Heparin Sodium (Porcine) 500 units 01/02/24 08:00 Heparin Sodium Lock Flush 500 Units/5 Ml Syringe IV PUSH PRN PRN see comments below Dextrose 1,000 mls @ 100 mls/hr 01/01/24 17:03 Dextrose 5% 1,000 Ml IVPB PRN PRN Hypoglycemia Protocol Cefepime HCl 2 gm in 50 mls @ 100 mls/hr 01/02/24 21:00 01/04/24 08:39 Maxipime 2 Gm/Ns 50 Ml IVPB 100 mls/hr Q12HR JERROD Administration Azithromycin 500 mg in 250 mls @ 250 mls/hr 01/02/24 16:00 01/03/24 17:50 Zithromax IVPB 01/05/24 16:59 250 mls/hr DAILY@1600 JERROD Administration Sodium Chloride 250 mls @ 30 mls/hr 01/04/24 07:36 Normal Saline Iv IV CONT 01/04/24 15:55 .Q8H20M STA Insulin Aspart 1 - 3 units 01/01/24 21:00 01/03/24 20:50 Insulin Aspart (*Bkc) 100 Units/Ml SUB-Q 2 units HS JERROD Administration Protocol Insulin Aspart 4 - 8 units 01/03/24 17:00 01/04/24 08:34 Insulin Aspart (*Bkc) 100 Units/Ml SUB-Q Not Given TIDWM JERROD Protocol Insulin Glargine 15 units 01/03/24 21:00 01/03/24 20:51 Insulin Glargine (*Bkc) 100 Units/Ml SUB-Q 15 units HS JERROD Administration Levothyroxine Sodium 50 mcg 01/02/24 06:30 01/04/24 05:37 Levothyroxine Sodium 50 Mcg Tablet PO 50 mcg DAILY@0630 JERROD Administration Lorazepam 0.5 mg 01/02/24 09:00 01/04/24 08:37 Lorazepam (*Crx) 0.5 Mg Tablet PO 0.5 mg TID JERROD Administration Pantoprazole Sodium 40 mg 01/02/24 09:00 01/04/24 08:37 Pantoprazole 40 Mg Tablet PO 40 mg QAM JERROD Administration Polyethylene Glycol 17 gm 01/03/24 13:05 Polyethylene Glycol 3350 17 Gm Powd.Pack PO QAM PRN Constipation Rosuvastatin Calcium 20 mg 01/02/24 09:00 01/04/24 08:37 Rosuvastatin 20 Mg Tablet PO 20 mg DAILY JERROD Administration Sodium Chloride 10 ml 01/02/24 14:00 01/04/24 05:37 Central Line Flush IV PUSH 10 ml Q8HR JERROD Administration Radiology Results: ITS Impressions Chest CTA 01/01/24 10:26 IMPRESSION: 1. Worsened airspace and groundglass opacities in left lower lobe, consistent with pneumonia. Stable airspace opacities in the upper lobes, consistent with radiation pneumonitis versus pneumonia. 2. Stable 14 mm nodule in right upper lobe, consistent with primary bronchogenic carcinoma. 3. Severe emphysema. 4. Stable moderate-sized loculated right pleural effusion. 5. Stable small left pleural effusion with pleural catheter. 6. No pulmonary embolus. Thoracentesis Ultrasound 01/02/24 15:06 IMPRESSION: 1. Successful ultrasound-guided thoracentesis yielding 1100 mL of reddish fluid. Chest X-Ray 01/04/24 08:05 IMPRESSION: 1. Stable small pleural effusions with pleural catheter on the left. 2. Stable airspace opacities in left lower lobe, consistent with pneumonia. 3. Stable airspace opacities in the upper lobes, consistent with radiation pneumonitis versus pneumonia. 4. Emphysema. Labs Labs: Laboratory Results - last 24 hr 01/03/24 01/03/24 01/03/24 12:02 17:10 20:35 WBC RBC Hgb Hct MCV MCH MCHC RDW Plt Count MPV Absolute Retic Percent Retic Immature Retic Fraction Retic Hgb Content Sodium Potassium Chloride Carbon Dioxide Anion Gap BUN Creatinine Estim Creat Clear Calc Estimated GFR Glucose POC Capillary Glucose 325 H 264 H 261 H Calcium Total Bilirubin AST ALT Alkaline Phosphatase Total Protein Albumin 01/04/24 01/04/24 01/04/24 05:39 08:30 08:41 WBC 4.2 L RBC 2.42 L Hgb 6.9 L* Hct 22.5 L MCV 93.0 MCH 28.5 MCHC 30.7 L RDW 19.0 H Plt Count 121 L MPV 9.4 Absolute Retic 0.03 Percent Retic 1.28 Immature Retic Fraction 25.0 H Retic Hgb Content 23.1 L Sodium 138 Potassium 3.9 Chloride 106 Carbon Dioxide 22 Anion Gap 10 BUN 17 Creatinine 1.20 Estim Creat Clear Calc 42 Estimated GFR 58 L Glucose 188 H POC Capillary Glucose 189 H Calcium 8.4 Total Bilirubin 0.2 AST 35 ALT 37 Alkaline Phosphatase 72 Total Protein 7.0 Albumin 3.1 L
[2024-01-04] MEDS: SODIUM CHLORIDE 0.9% IV 250 ML 30 ML IV CONT (11:35)
[2024-01-04 11:43] LABS: Glucose Point of Care 243 mg/dl (65-105)
[2024-01-04] MEDS: INSULIN ASPART (*BKC) 100 UNITS/ML SUB-Q ×3 (12:05→20:17)
[2024-01-04] MEDS: polyethylene glycoL 3350 17 GM POWD.PACK PO (12:06)
[2024-01-04] MEDS: AZITHROMYCIN 500 MG/NS 250 ML 500 MG/250 ML BAG 250 MG IVPB (16:48)
[2024-01-04 16:56] LABS: Glucose Point of Care 255 mg/dl (65-105)
[2024-01-04] MEDS: INSULIN GLARGINE (*BKC) 100 UNITS/ML 15 UNITS SUB-Q (20:15)
[2024-01-04 23:30] LABS: Glucose Point of Care 210 mg/dl (65-105)
[2024-01-05] VITALS (9 sets, daily range): BP systolic 126; BP diastolic 66; PULSE 82–93; RESP 16–18; TEMP 36.8; O2SAT 87–99
[2024-01-05] MEDS: LEVOTHYROXINE SODIUM 50 MCG TABLET PO (06:13)
[2024-01-05] MEDS: CENTRAL LINE FLUSH 10 ML IV PUSH (06:13)
[2024-01-05 06:27] LABS: Hematocrit 25.9 % (42.0-52.0); Hemoglobin 8.2 g/dL (14.0-18.0); Mean Corpuscular HGB Conc 31.7 g/dl (32-36); Mean Corpuscular Hemoglobin 29.3 pg (26-34); Mean Corpuscular Volume 92.5 fl (80-100); Mean Platelet Volume 9.2 fl (7.4-10.4); Platelet Count Result 114 k/mm3 (150-375); Red Cell Distribution Width 17.9 % (11.5-14.5)
[2024-01-05 06:45] LABS: Alanine Aminotransferase 41 U/L (6-50); Albumin Level 3.1 g/dL (3.5-5.1); Alkaline Phosphatase 75 U/L (38-126); Anion Gap 7 mmol/L (4-12); Aspartate Amino Transferase 39 U/L (17-59); Bilirubin,Total 0.3 mg/dL (0.2-1.3); Blood Urea Nitrogen 17 mg/dL (9-20); Calcium 8.7 mg/dL (8.4-10.2); Carbon Dioxide 24 mmol/L (22-30); Chloride 104 mmol/L (98-107); Estimated CRCL calculation 42 ml/min; Estimated Glomerular Filt Rate 58; Glucose 223 mg/dL (65-110); Potassium 4.1 mmol/L (3.4-5.0); Sodium 135 mmol/L (137-145)
--- NOTE | 2024-01-05 07:20 | P.PNIM_ITS ---
Progress Note: A&P Assessment and Plan (1) Acute and chronic respiratory failure with hypoxia: Code(s): J96.21 - Acute and chronic respiratory failure with hypoxia Status: Acute Assessment and Plan: * Secondary to pneumonia/COPD exacerbation/loculated pleural effusions/HX lung cancer * Wears 3L NC at night only now having to wear all the time * Will likely need home O2 walk study * Pulmonology consulted * CT scan showed radiation pneumonitis versus pneumonia severe emphysema and no change to 1.4 cm nodule the right upper lobe * DuoNebs (2) Pneumonia: Code(s): J18.9 - Pneumonia, unspecified organism Status: Acute Assessment and Plan: * HX lung cancer/COPD/Current smoker and hospitalization past 30-days * CT scan Worsened airspace and groundglass opacities in left lower lobe, consistent with pneumonia * Bronchodilators. * Chest x-ray/CT scan reviewed * incentive spirometry while awake. * sputum culture ordered * Blood cultures x2 NGTD * Initially on IV meropenem pulmonology requesting azithromycin and cefepime * supplemental oxygen therapy to * monitor for signs of in sepsis * Smoking cessation counseling done * Pulmonology consulted * Repeat xray in the am 01/03 showed left lower lobe pneumonia and stable, small pleural effusion bilaterally (3) Chronic obstructive pulmonary disease: Code(s): J44.9 - Chronic obstructive pulmonary disease, unspecified Status: Acute Assessment and Plan: * CT showing severe emphysema/history of lung cancer stable 1.4 cm nodule the right upper follows with [facility] outpatient * Bronchodilators. * Chest x-ray reviewed * incentive spirometry while awake. * steroids initiated * azithromycin 500 x 1 day/250 daily * supplemental oxygen therapy to maintain oxygen 92%/3L at night but need all the time * Pulmonary rehab if indicated. * Disease management following [facility] guidelines. * Repeat hospitalization risk evaluation per [facility] * Oxygen evaluation for all day use * Smoking cessation counseling done * Follow-up with professor of industrial technology as an outpatient (4) Pleural effusion: Code(s): J90 - Pleural effusion, not elsewhere classified Status: Chronic Assessment and Plan: * RT pleural effusion noted on CT * Thoracentesis today for comfort * Known history of lung cancer likely cause of loculated pleural effusion * It does not appear fluid studies were ordered for right thoracentesis yeste rday (01/02). Added on studies and will check with lab to see if there is any fluid for sampling. (5) Adenocarcinoma, lung: Code(s): C34.90 - Malignant neoplasm of unspecified part of unspecified bronchus or lung Status: Acute Assessment and Plan: * Post radiation and cancer treatment * Follows with Dr. Willingham * CT scan showing stable 1.4 cm right upper lobe nodule * Will need to follow up with Oncology outpatient for continued monitoring L (6) Type 2 diabetes mellitus: Code(s): E11.9 - Type 2 diabetes mellitus without complications Status: Acute Assessment and Plan: * Accu-Cheks a.c. HS * sliding scale insulin * hold oral diabetic medications * resume patient's home long-acting * Diabetic diet * Optimize Trevor inhibitors and statins. * Watch for hypoglycemia/hypoglycemic protocol ordered (7) Tobacco abuse: Code(s): Z72.0 - Tobacco use Status: Acute Assessment and Plan: * Patient states he quit smoking 3 weeks ago * Provided smoking cessation education (8) Chronic anemia: Code(s): D64.9 - Anemia, unspecified Status: Chronic Assessment and Plan: Hemoglobin 6.9 g/dl today. Normal MCV. * Recent TIBC and Fe from 11/30/23: Iron 48, TIBC 239, 20% saturation * Vitamin B12 and folate from 11/30/23: B12 847, folate 4.6 * No overt signs of bleeding, occult blood negative from 11/17/23 * Anemia of chronic disease * transfuse 1 unit of pRBC now * Will receive procrit 10,000 units once today * Follow up with Dr Willingham as an outpatient Plan Code status: Full code per patient DVT prophylaxis: Lovenox Stress ulcer prophylaxis: NA PT/OT notes: Ambulatory Disposition: Patient was admitted to the medical unit for acute respiratory failure with hypoxia secondary to pneumonia/COPD exacerbation and pleural effusions. Plan for thoracentesis today and continue with antibiotic coverage pending cultures patient recently hospitalized treating as hospital-acquired. Patient currently wearing 3 L at all times but states he only wears 3 L at night at home will need to do a home oxygen walk study prior to discharge. He has not had a bowel movement in the last few days. Started on miralax today. Subjective Date/time seen: 01/05/24 07:20 Review of Systems Review of Systems: All systems reviewed & are unremarkable except as noted in HPI and below Exam Narrative: General: appears comfortable, in no acute distress on 2 L NC Respiratory: breathing is unlabored with even chest rise/fall, lungs are clear and diminished without wheezing, rhonchi, and crackles Cardiovascular: Rate and rhythm regular, normal s1s2, no murmur Abdomen: Soft, round, non-tender, active bowel sounds Extremities: No cyanosis, edema, clubbing. Pulses 2/2 Neuro: A&O x 4 Skin: Warm, dry, intact Objective Data Vital Signs Vital Signs: Vital Signs - 24 hr 01/04/24 11:35 01/04/24 08:37 01/04/24 11:50 Temperature 97.3 F L 97.5 F L Pulse Rate 90 88 Respiratory Rate 22 H 22 H Blood Pressure 105/63 108/62 Pulse Oximetry 97 97 96 Oxygen Delivery Nasal Cannula Oxygen Flow Rate 2 01/04/24 12:50 01/04/24 12:55 01/04/24 13:05 Temperature 97.3 F L Pulse Rate 98 85 83 Respiratory Rate 24 H 20 18 Blood Pressure 119/57 L Pulse Oximetry 95 Oxygen Delivery Oxygen Flow Rate 01/04/24 14:00 01/04/24 13:50 01/04/24 14:30 Temperature 98.1 F 98.4 F 98.1 F Pulse Rate 95 101 H 95 Respiratory Rate 22 H 22 H 22 H Blood Pressure 105/71 114/63 105/71 Pulse Oximetry 93 93 93 Oxygen Delivery Oxygen Flow Rate 01/04/24 20:20 01/04/24 20:21 01/04/24 20:21 Temperature 98 F Pulse Rate 91 89 Respiratory Rate 18 16 Blood Pressure 129/75 Pulse Oximetry 95 95 Oxygen Delivery Nasal Cannula Oxygen Flow Rate 3 01/04/24 20:00 01/04/24 20:35 01/04/24 23:15 Temperature Pulse Rate 90 89 Respiratory Rate 18 Blood Pressure Pulse Oximetry 95 95 Oxygen Delivery Nasal Cannula CPAP Oxygen Flow Rate 2 01/05/24 05:08 Temperature 98.2 F Pulse Rate 85 Respiratory Rate 16 Blood Pressure 126/66 Pulse Oximetry 99 Oxygen Delivery Oxygen Flow Rate Intake/Output Intake/Output: Intake & Output 01/02/24 01/03/24 01/04/24 01/05/24 23:59 23:59 23:59 23:59 Intake Total 2772 2770 1120 100 Output Total 2850 1100 1550 600 Balance -78 1670 -430 -500 Meds/Results Medications: Active Medications Generic Name Dose Route Start Last Admin Trade Name Freq PRN Reason Stop Dose Admin Albuterol 2 puff 01/01/24 17:03 Albuterol Sulfate (*Sp) Aerosol 1 Puff INHALATION QID PRN shortness of breath or wheezing Albuterol/Ipratropium 3 ml 01/01/24 20:00 01/04/24 20:17 Ipratropium 0.5 Mg/Albuterol Sulfate 2.5 Mg Ampul.Neb 3 Ml INHALATION 3 ml TIDRT JERROD Administration Budesonide 0.5 mg 01/01/24 20:00 01/04/24 20:17 Budesonide Respule Neb 0.5 Mg/2 Ml Amp INHALATION 0.5 mg Q12HRT JERROD Administration Citalopram Hydrobromide 20 mg 01/02/24 09:00 01/04/24 08:37 Citalopram Hydrobromide 20 Mg Tablet PO 20 mg DAILY JERROD Administration Dextrose 12.5 gm 01/01/24 17:03 Dextrose 50% 25 Gm/50 Ml Syringe IV PUSH PRN PRN Hypoglycemia Protocol Enoxaparin Sodium 40 mg 01/02/24 09:00 01/04/24 08:37 Enoxaparin 40 Mg/0.4 Ml Syringe SUB-Q 40 mg DAILY JERROD Administration Epoetin Jesus Alberto-epbx 10,000 units 01/05/24 09:00 Epoetin Jesus Alberto-Epbx 10,000 Units/Ml Vial SUB-Q 01/05/24 09:01 ONCE ONE Glucagon 1 mg 01/01/24 17:03 Glucagon For Inj 1 Mg Vial IM PRN PRN Hypoglycemia Protocol Glucose 15 gm 01/01/24 17:03 Glucose Oral Gel 15 Gm Of Glucse In 37.5 Gm Tube PO PRN PRN Hypoglycemia Protocol Heparin Sodium (Beef Lung) 50 units 01/02/24 09:00 01/04/24 08:38 Heparin Flush 50 Units/5 Ml Syringe IV PUSH 50 units QAM JERROD Administration Heparin Sodium (Beef Lung) 50 units 01/02/24 08:00 Heparin Flush 50 Units/5 Ml Syringe IV PUSH PRN PRN after intermittent infusion Heparin Sodium (Beef Lung) 50 units 01/02/24 08:00 Heparin Flush 50 Units/5 Ml Syringe IV PUSH PRN PRN after blood draws Heparin Sodium (Porcine) 500 units 01/02/24 08:00 Heparin Sodium Lock Flush 500 Units/5 Ml Syringe IV PUSH PRN PRN see comments below Dextrose 1,000 mls @ 100 mls/hr 01/01/24 17:03 Dextrose 5% 1,000 Ml IVPB PRN PRN Hypoglycemia Protocol Cefepime HCl 2 gm in 50 mls @ 100 mls/hr 01/02/24 21:00 01/04/24 20:04 Maxipime 2 Gm/Ns 50 Ml IVPB 100 mls/hr Q12HR JERROD Administration Azithromycin 500 mg in 250 mls @ 250 mls/hr 01/02/24 16:00 01/04/24 16:48 Zithromax IVPB 01/05/24 16:59 250 mls/hr DAILY@1600 JERROD Administration Insulin Aspart 1 - 3 units 01/01/24 21:00 01/04/24 20:17 Insulin Aspart (*Bkc) 100 Units/Ml SUB-Q 1 units HS JERROD Administration Protocol Insulin Aspart 4 - 8 units 01/03/24 17:00 01/04/24 16:58 Insulin Aspart (*Bkc) 100 Units/Ml SUB-Q 5 units TIDWM JERROD Administration Protocol Insulin Glargine 15 units 01/03/24 21:00 01/04/24 20:15 Insulin Glargine (*Bkc) 100 Units/Ml SUB-Q 15 units HS JERROD Administration Levothyroxine Sodium 50 mcg 01/02/24 06:30 01/05/24 06:13 Levothyroxine Sodium 50 Mcg Tablet PO 50 mcg DAILY@0630 JERROD Administration Lorazepam 0.5 mg 01/02/24 09:00 01/04/24 16:49 Lorazepam (*Crx) 0.5 Mg Tablet PO 0.5 mg TID JERROD Administration Pantoprazole Sodium 40 mg 01/02/24 09:00 01/04/24 08:37 Pantoprazole 40 Mg Tablet PO 40 mg QAM JERROD Administration Polyethylene Glycol 17 gm 01/03/24 13:05 01/04/24 12:06 Polyethylene Glycol 3350 17 Gm Powd.Pack PO 17 gm QAM PRN Administration Constipation Rosuvastatin Calcium 20 mg 01/02/24 09:00 01/04/24 08:37 Rosuvastatin 20 Mg Tablet PO 20 mg DAILY JERROD Administration Sodium Chloride 10 ml 01/02/24 14:00 01/05/24 06:13 Central Line Flush IV PUSH 10 ml Q8HR JERROD Administration Radiology Results: ITS Impressions Chest CTA 01/01/24 10:26 IMPRESSION: 1. Worsened airspace and groundglass opacities in left lower lobe, consistent with pneumonia. Stable airspace opacities in the upper lobes, consistent with radiation pneumonitis versus pneumonia. 2. Stable 14 mm nodule in right upper lobe, consistent with primary bronchogenic carcinoma. 3. Severe emphysema. 4. Stable moderate-sized loculated right pleural effusion. 5. Stable small left pleural effusion with pleural catheter. 6. No pulmonary embolus. Thoracentesis Ultrasound 01/02/24 15:06 IMPRESSION: 1. Successful ultrasound-guided thoracentesis yielding 1100 mL of reddish fluid. Chest X-Ray 01/04/24 08:05 IMPRESSION: 1. Stable small pleural effusions with pleural catheter on the left. 2. Stable airspace opacities in left lower lobe, consistent with pneumonia. 3. Stable airspace opacities in the upper lobes, consistent with radiation pneumonitis versus pneumonia. 4. Emphysema. Labs Labs: Laboratory Results - last 24 hr 01/04/24 01/04/24 01/04/24 08:30 08:41 11:37 WBC RBC Hgb Hct MCV MCH MCHC RDW Plt Count MPV Absolute Retic 0.03 Percent Retic 1.28 Immature Retic Fraction 25.0 H Retic Hgb Content 23.1 L Sodium Potassium Chloride Carbon Dioxide Anion Gap BUN Creatinine Estim Creat Clear Calc Estimated GFR Glucose POC Capillary Glucose 189 H 243 H Calcium Total Bilirubin AST ALT Alkaline Phosphatase Total Protein Albumin Blood Type O Positive Antibody Screen Negative Crossmatch See Detail 01/04/24 01/04/24 01/05/24 16:30 19:17 06:13 WBC 4.0 L RBC 2.80 L Hgb 8.2 L Hct 25.9 L MCV 92.5 MCH 29.3 MCHC 31.7 L RDW 17.9 H Plt Count 114 L MPV 9.2 Absolute Retic Percent Retic Immature Retic Fraction Retic Hgb Content Sodium 135 L Potassium 4.1 Chloride 104 Carbon Dioxide 24 Anion Gap 7 BUN 17 Creatinine 1.20 Estim Creat Clear Calc 42 Estimated GFR 58 L Glucose 223 H POC Capillary Glucose 255 H 210 H Calcium 8.7 Total Bilirubin 0.3 AST 39 ALT 41 Alkaline Phosphatase 75 Total Protein 7.0 Albumin 3.1 L Blood Type Antibody Screen Crossmatch Quality VTE Prophylaxis VTE prophylaxis: pharmacologic ordered (lovenox ordered )
[2024-01-05 08:08] LABS: Glucose Point of Care 195 mg/dl (65-105)
[2024-01-05] MEDS: CITALOPRAM HYDROBROMIDE 20 MG TABLET PO (08:16)
[2024-01-05] MEDS: LORazepam (*CRX) 0.5 MG TABLET PO ×2 (08:16→11:58)
[2024-01-05] MEDS: ROSUVASTATIN 20 MG TABLET PO (08:16)
[2024-01-05] MEDS: ENOXAPARIN 40 MG/0.4 ML SYRINGE SUB-Q (08:17)
[2024-01-05] MEDS: PANTOPRAZOLE 40 MG TABLET PO (08:17)
[2024-01-05] MEDS: polyethylene glycoL 3350 17 GM POWD.PACK PO (08:17)
[2024-01-05] MEDS: EPOETIN ALFA-EPBX 10,000 UNITS/ML VIAL 10000 UNITS SUB-Q (08:17)
[2024-01-05] MEDS: CEFEPIME 2 GM/NS 50 ML 2 GM/50 ML BAG IVPB (08:18)
[2024-01-05] MEDS: IPRATROPIUM 0.5 MG/ALBUTEROL SULFATE 2.5 MG AMPUL.NEB 3 ML INHALATION (08:52)
[2024-01-05] MEDS: BUDESONIDE RESPULE NEB 0.5 MG/2 ML AMP INHALATION (08:52)
--- NOTE | 2024-01-05 09:11 | P.PNPL_ITS ---
Progress Note: A&P Assessment and Plan (1) Pneumonia: Code(s): J18.9 - Pneumonia, unspecified organism Status: Acute Assessment and Plan: This 83-year-old man, with a history of lung cancer treated with chemoradiation and also severe emphysema, has had bilateral pleural effusions managed with a PleurX catheter for drainage on the left side and a chronic effusion on the right. He presented with increasing shortness of breath, due to left lower lobe pneumonia. Approximately five weeks ago, he was hospitalized. Given his immunocompromised status, it is important to consider coverage for Gram-negative organisms due to possible healthcare-associated pneumonia. The patient exhibits no leukocytosis and appears to be responding well to current antibiotic regimen. Overall patient's respiratory status has improved. He continues to have cough with yellow sputum although he is less short of breath. Plan: The patient is cleared for discharge to home. After receiving IV antibiotics to address potential Gram-negative infections, it is recommended that the patient take levofloxacin 500 mg orally every 48 hours, for a total of two doses. The patient should continue using his maintenance nebulized LABA, n ebulized ICS, and short-acting bronchodilators for COPD management, along with his supplemental oxygen as previously prescribed. It is important for the patient to schedule an appointment with his rubber tubing backer in approximately three weeks, at which time a repeat chest X-ray should be performed to assess for any reaccumulation of the right pleural effusion. The patient mentioned plans to visit his thoracic surgeon to remove the left PleurX catheter, as there has been no drainage in recent months. I will conclude my involvement here. Please feel free to contact me if you have any questions. (2) Chronic obstructive pulmonary disease: Code(s): J44.9 - Chronic obstructive pulmonary disease, unspecified Status: Acute (3) Acute hypoxemic respiratory failure: Code(s): J96.01 - Acute respiratory failure with hypoxia Status: Acute (4) Type 2 diabetes mellitus: Code(s): E11.9 - Type 2 diabetes mellitus without complications Status: Acute (5) Non-small cell lung cancer: Onset Date: 09/2022 Code(s): C34.90 - Malignant neoplasm of unspecified part of unspecified bronchus or lung Status: Acute (6) Obstructive sleep apnea: Code(s): G47.33 - Obstructive sleep apnea (adult) (pediatric) Status: Acute (7) Thrombocytopenia: Code(s): D69.6 - Thrombocytopenia, unspecified Status: Acute (8) Adenocarcinoma, lung: Code(s): C34.90 - Malignant neoplasm of unspecified part of unspecified bronchus or lung Status: Acute (9) Pleural effusion: Code(s): J90 - Pleural effusion, not elsewhere classified Status: Chronic Assessment and Plan: The patient has chronic bilateral pleural effusions, with a PleurX catheter inse rted to drain the left side. Per oncologist's report, the pleural fluid on the left was not related to the lung cancer. The patient reported that he has not needed to drain any fluid from the left chest cavity via the PleurX catheter since catheter insertion. A chest CT shows a residual left pleural effusion vs pleural scarring. Regarding the right pleural effusion, the chest CT indicates it is of moderate size with some loculation. There is no previous pleural fluid analysis available to characterize the right pleural effusion. Patient had thoracentesis couple of days ago and an approximately 1 L of reddish fluid was removed. Unfortunately no orders to analyze the fluid were sent. On the last chest x-ray there has been no significant change regarding these small pleural effusions bilaterally. Unclear whether the left lower lobe infiltrate seen on chest CT has improved with treatment. Plan: as above Subjective Date/time seen: 01/05/24 09:11 Interval history: Patient stated he is doing better. Cough has improved still coughing some yellow phlegm no more than 2 to 3 times a day. Afebrile, got out of bed yesterday Review of Systems Review of Systems: All systems reviewed & are unremarkable except as noted in HPI and below (HPI and below) Exam Narrative: GENERAL APPEARANCE: Well developed, well nourished, alert and cooperative, and appears to be in no acute distress SKIN: Inspection of the skin reveals no rashes, ulcerations or petechiae. HEENT: Sclerae anicteric and conjunctivae pink and moist. Extraocular movements were intact and pupils were equal, round, and reactive to light. The oral mucosa, hard and soft palate, tongue and posterior pharynx were normal. NECK: Supple. There was no thyroid enlargement, and no tenderness, or masses were felt. LUNGS: Distant breath sounds bilaterally, rare crackles left base posteriorly no wheezing CARDIAC: There was a regular rate and rhythm without any murmurs, gallops, rubs. ABDOMEN: Soft and nontender with normal bowel sounds. There was no organomegaly. LYMPH NODES: No lymphadenopathy was appreciated in the neck. EXTREMITIES: No cyanosis, clubbing or edema. NEUROLOGIC: Alert and oriented x 3. Normal affect. Objective Data Vital Signs Vital Signs: Vital Signs - 24 hr 01/04/24 11:35 01/04/24 11:50 01/04/24 12:50 Temperature 36.3 C L 36.4 C L 36.3 C L Pulse Rate 90 88 98 Respiratory Rate 22 H 22 H 24 H Blood Pressure 105/63 108/62 119/57 L Pulse Oximetry 97 96 95 Oxygen Delivery Oxygen Flow Rate 01/04/24 12:55 01/04/24 13:05 01/04/24 14:00 Temperature 36.7 C Pulse Rate 85 83 95 Respiratory Rate 20 18 22 H Blood Pressure 105/71 Pulse Oximetry 93 Oxygen Delivery Oxygen Flow Rate 01/04/24 13:50 01/04/24 14:30 01/04/24 20:20 Temperature 36.9 C 36.7 C Pulse Rate 101 H 95 91 Respiratory Rate 22 H 22 H 18 Blood Pressure 114/63 105/71 Pulse Oximetry 93 93 Oxygen Delivery Oxygen Flow Rate 01/04/24 20:21 01/04/24 20:21 01/04/24 20:00 Temperature 36.6 C Pulse Rate 89 Respiratory Rate 16 Blood Pressure 129/75 Pulse Oximetry 95 95 95 Oxygen Delivery Nasal Cannula Nasal Cannula Oxygen Flow Rate 3 2 01/04/24 20:35 01/04/24 23:15 01/05/24 05:08 Temperature 36.8 C Pulse Rate 90 89 85 Respiratory Rate 18 16 Blood Pressure 126/66 Pulse Oximetry 95 99 Oxygen Delivery CPAP Oxygen Flow Rate 01/05/24 08:55 Temperature Pulse Rate 85 Respiratory Rate 18 Blood Pressure Pulse Oximetry Oxygen Delivery Oxygen Flow Rate Intake/Output Intake/Output: Intake & Output 01/02/24 01/03/24 01/04/24 01/05/24 23:59 23:59 23:59 23:59 Intake Total 2772 2770 1170 100 Output Total 2850 1100 1550 600 Balance -78 1670 -380 -500 Meds/Results Medications: Active Medications Generic Name Dose Route Start Last Admin Trade Name Freq PRN Reason Stop Dose Admin Albuterol 2 puff 01/01/24 17:03 Albuterol Sulfate (*Sp) Aerosol 1 Puff INHALATION QID PRN shortness of breath or wheezing Albuterol/Ipratropium 3 ml 01/01/24 20:00 01/05/24 08:52 Ipratropium 0.5 Mg/Albuterol Sulfate 2.5 Mg Ampul.Neb 3 Ml INHALATION 3 ml TIDRT JERROD Administration Budesonide 0.5 mg 01/01/24 20:00 01/05/24 08:52 Budesonide Respule Neb 0.5 Mg/2 Ml Amp INHALATION 0.5 mg Q12HRT JERROD Administration Citalopram Hydrobromide 20 mg 01/02/24 09:00 01/05/24 08:16 Citalopram Hydrobromide 20 Mg Tablet PO 20 mg DAILY JERROD Administration Dextrose 12.5 gm 01/01/24 17:03 Dextrose 50% 25 Gm/50 Ml Syringe IV PUSH PRN PRN Hypoglycemia Protocol Enoxaparin Sodium 40 mg 01/02/24 09:00 01/05/24 08:17 Enoxaparin 40 Mg/0.4 Ml Syringe SUB-Q 40 mg DAILY JERROD Administration Glucagon 1 mg 01/01/24 17:03 Glucagon For Inj 1 Mg Vial IM PRN PRN Hypoglycemia Protocol Glucose 15 gm 01/01/24 17:03 Glucose Oral Gel 15 Gm Of Glucse In 37.5 Gm Tube PO PRN PRN Hypoglycemia Protocol Heparin Sodium (Beef Lung) 50 units 01/02/24 09:00 01/05/24 08:17 Heparin Flush 50 Units/5 Ml Syringe IV PUSH 50 units QAM JERROD Administration Heparin Sodium (Beef Lung) 50 units 01/02/24 08:00 Heparin Flush 50 Units/5 Ml Syringe IV PUSH PRN PRN after intermittent infusion Heparin Sodium (Beef Lung) 50 units 01/02/24 08:00 Heparin Flush 50 Units/5 Ml Syringe IV PUSH PRN PRN after blood draws Heparin Sodium (Porcine) 500 units 01/02/24 08:00 Heparin Sodium Lock Flush 500 Units/5 Ml Syringe IV PUSH PRN PRN see comments below Dextrose 1,000 mls @ 100 mls/hr 01/01/24 17:03 Dextrose 5% 1,000 Ml IVPB PRN PRN Hypoglycemia Protocol Cefepime HCl 2 gm in 50 mls @ 100 mls/hr 01/02/24 21:00 01/05/24 08:18 Maxipime 2 Gm/Ns 50 Ml IVPB 100 mls/hr Q12HR JERROD Administration Azithromycin 500 mg in 250 mls @ 250 mls/hr 01/02/24 16:00 01/04/24 16:48 Zithromax IVPB 01/05/24 16:59 250 mls/hr DAILY@1600 JERROD Administration Insulin Aspart 1 - 3 units 01/01/24 21:00 01/04/24 20:17 Insulin Aspart (*Bkc) 100 Units/Ml SUB-Q 1 units HS JERROD Administration Protocol Insulin Aspart 4 - 8 units 01/03/24 17:00 01/05/24 08:12 Insulin Aspart (*Bkc) 100 Units/Ml SUB-Q Not Given [facility] Protocol Insulin Glargine 15 units 01/03/24 21:00 01/04/24 20:15 Insulin Glargine (*Bkc) 100 Units/Ml SUB-Q 15 units HS JERROD Administration Levothyroxine Sodium 50 mcg 01/02/24 06:30 01/05/24 06:13 Levothyroxine Sodium 50 Mcg Tablet PO 50 mcg DAILY@0630 JERROD Administration Lorazepam 0.5 mg 01/02/24 09:00 01/05/24 08:16 Lorazepam (*Crx) 0.5 Mg Tablet PO 0.5 mg TID JERROD Administration Pantoprazole Sodium 40 mg 01/02/24 09:00 01/05/24 08:17 Pantoprazole 40 Mg Tablet PO 40 mg QAM JERROD Administration Polyethylene Glycol 17 gm 01/05/24 09:00 01/05/24 08:17 Polyethylene Glycol 3350 17 Gm Powd.Pack PO 17 gm QAM JERROD Administration Rosuvastatin Calcium 20 mg 01/02/24 09:00 01/05/24 08:16 Rosuvastatin 20 Mg Tablet PO 20 mg DAILY JERROD Administration Sodium Chloride 10 ml 01/02/24 14:00 01/05/24 06:13 Central Line Flush IV PUSH 10 ml Q8HR JERROD Administration Radiology Results: ITS Impressions Chest CTA 01/01/24 10:26 IMPRESSION: 1. Worsened airspace and groundglass opacities in left lower lobe, consistent with pneumonia. Stable airspace opacities in the upper lobes, consistent with radiation pneumonitis versus pneumonia. 2. Stable 14 mm nodule in right upper lobe, consistent with primary bronchogenic carcinoma. 3. Severe emphysema. 4. Stable moderate-sized loculated right pleural effusion. 5. Stable small left pleural effusion with pleural catheter. 6. No pulmonary embolus. Thoracentesis Ultrasound 01/02/24 15:06 IMPRESSION: 1. Successful ultrasound-guided thoracentesis yielding 1100 mL of reddish fluid. Chest X-Ray 01/04/24 08:05 IMPRESSION: 1. Stable small pleural effusions with pleural catheter on the left. 2. Stable airspace opacities in left lower lobe, consistent with pneumonia. 3. Stable airspace opacities in the upper lobes, consistent with radiation pneumonitis versus pneumonia. 4. Emphysema. Labs Labs: Laboratory Results - last 24 hr 01/04/24 01/04/24 01/04/24 08:41 11:37 16:30 WBC RBC Hgb Hct MCV MCH MCHC RDW Plt Count MPV Sodium Potassium Chloride Carbon Dioxide Anion Gap BUN Creatinine Estim Creat Clear Calc Estimated GFR Glucose POC Capillary Glucose 243 H 255 H Calcium Total Bilirubin AST ALT Alkaline Phosphatase Total Protein Albumin Blood Type O Positive Antibody Screen Negative Crossmatch See Detail 01/04/24 01/05/24 01/05/24 19:17 06:13 07:36 WBC 4.0 L RBC 2.80 L Hgb 8.2 L Hct 25.9 L MCV 92.5 MCH 29.3 MCHC 31.7 L RDW 17.9 H Plt Count 114 L MPV 9.2 Sodium 135 L Potassium 4.1 Chloride 104 Carbon Dioxide 24 Anion Gap 7 BUN 17 Creatinine 1.20 Estim Creat Clear Calc 42 Estimated GFR 58 L Glucose 223 H POC Capillary Glucose 210 H 195 H Calcium 8.7 Total Bilirubin 0.3 AST 39 ALT 41 Alkaline Phosphatase 75 Total Protein 7.0 Albumin 3.1 L Blood Type Antibody Screen Crossmatch
[2024-01-05 11:57] LABS: Glucose Point of Care 203 mg/dl (65-105)
[2024-01-05] MEDS: INSULIN ASPART (*BKC) 100 UNITS/ML SUB-Q (11:57)
--- NOTE | 2024-01-05 12:02 | P.DS_ITS ---
DS: Admitting Diagnosis Discharge Date 01/04 Admitting Diagnosis Shortness of breath DS: Discharge Diagnosis Discharge Diagnosis (1) Acute and chronic respiratory failure with hypoxia: Code(s): J96.21 - Acute and chronic respiratory failure with hypoxia Status: Acute (2) Pneumonia: Code(s): J18.9 - Pneumonia, unspecified organism Status: Acute (3) Chronic obstructive pulmonary disease: Code(s): J44.9 - Chronic obstructive pulmonary disease, unspecified Status: Acute (4) Pleural effusion: Code(s): J90 - Pleural effusion, not elsewhere classified Status: Chronic (5) Adenocarcinoma, lung: Code(s): C34.90 - Malignant neoplasm of unspecified part of unspecified bronchus or lung Status: Acute (6) Type 2 diabetes mellitus: Code(s): E11.9 - Type 2 diabetes mellitus without complications Status: Acute (7) Tobacco abuse: Code(s): Z72.0 - Tobacco use Status: Acute (8) Chronic anemia: Code(s): D64.9 - Anemia, unspecified Status: Chronic Plan (1) Acute and chronic respiratory failure with hypoxia: Code(s): J96.21 - Acute and chronic respiratory failure with hypoxia Status: Acute Assessment and Plan: * Secondary to pneumonia/COPD exacerbation/loculated pleural effusions/HX lung cancer * Wears 3L NC at night only now having to wear all the time * Will likely need home O2 walk study * Pulmonology consulted * CT scan showed radiation pneumonitis versus pneumonia severe emphysema and no change to 1.4 cm nodule the right upper lobe * Sourav (2) Pneumonia: Code(s): J18.9 - Pneumonia, unspecified organism Status: Acute Assessment and Plan: * HX lung cancer/COPD/Current smoker and hospitalization past 30-days * CT scan Worsened airspace and groundglass opacities in left lower lobe, co nsistent with pneumonia * Bronchodilators. * Chest x-ray/CT scan reviewed * incentive spirometry while awake. * sputum culture ordered * Blood cultures x2 NGTD * Initially on IV meropenem pulmonology requesting azithromycin and cefepime * supplemental oxygen therapy to * monitor for signs of in sepsis * Smoking cessation counseling done * Pulmonology consulted * Repeat xray in the am 01/03 (3) Chronic obstructive pulmonary disease: Code(s): J44.9 - Chronic obstructive pulmonary disease, unspecified Status: Acute Assessment and Plan: * CT showing severe emphysema/history of lung cancer stable 1.4 cm nodule the right upper follows with [facility] outpatient * Bronchodilators. * Chest x-ray reviewed * incentive spirometry while awake. * steroids initiated * azithromycin 500 x 1 day/250 daily * supplemental oxygen therapy to maintain oxygen 92%/3L at night but need all the time * Pulmonary rehab if indicated. * Disease management following GOLD guidelines. * Repeat hospitalization risk evaluation per [facility] * Oxygen evaluation for all day use * Smoking cessation counseling done * Follow-up with portable canteen operator as an outpatient (4) Pleural effusion: Code(s): J90 - Pleural effusion, not elsewhere classified Status: Chronic Assessment and Plan: * RT pleural effusion noted on CT * Thoracentesis today for comfort * Known history of lung cancer likely cause of loculated pleural effusion * It does not appear fluid studies were ordered for right thoracentesis yesterday (01/02). Added on studies and will check with lab to see if there is any fluid for sampling. * repeat x-ray in the am (5) Adenocarcinoma, lung: Code(s): C34.90 - Malignant neoplasm of unspecified part of unspecified bronchus or lung Status: Acute Assessment and Plan: * Post radiation and cancer treatment * Follows with Dr. Willingham * CT scan showing stable 1.4 cm right upper lobe nodule * Will need to follow up with Oncology outpatient for continued monitoring (6) Type 2 diabetes mellitus: Code(s): E11.9 - Type 2 diabetes mellitus without complications Status: Acute Assessment and Plan: * Accu-Cheks a.c. HS * sliding scale insulin * hold oral diabetic medications * resume patient's home long-acting * Diabetic diet * Optimize Trevor inhibitors and statins. * Watch for hypoglycemia/hypoglycemic protocol ordered (7) Tobacco abuse: Code(s): Z72.0 - Tobacco use Status: Acute Assessment and Plan: * Patient states he quit smoking 3 weeks ago * Provided smoking cessation education (8) Chronic anemia: Code(s): D64.9 - Anemia, unspecified Status: Chronic Assessment and Plan: Hemoglobin 6.9 g/dl today. Normal MCV. * Recent TIBC and Fe from 11/30/23: Iron 48, TIBC 239, 20% saturation * Vitamin B12 and folate from 11/30/23: B12 847, folate 4.6 * No overt signs of bleeding, occult blood negative from 11/17/23 * Suspect anemia of chronic disease * Reticulocyte pending * transfuse 1 unit of pRBC now Plan Code status: Full code per patient DVT prophylaxis: Lovenox Stress ulcer prophylaxis: NA PT/OT notes: Ambulatory Disposition: Patient was admitted to the medical unit for acute respiratory failure with hypoxia secondary to pneumonia/COPD exacerbation and pleural effusi ons. Plan for thoracentesis today and continue with antibiotic coverage pending cultures patient recently hospitalized treating as hospital-acquired. Patient currently wearing 3 L at all times but states he only wears 3 L at night at home will need to do a home oxygen walk study prior to discharge. He has not had a bowel movement in the last few days. Started on miralax today. DS: Summary Hospital Course Reason for hospitalization: Community-acquired pneumonia, pleural effusion Hospital Course: This is an 83-year-old male with past medical history significant for chronic anemia, CKD stage 3, COPD, chronic respiratory failure with hypoxia chronically on oxygen at night, colon cancer, hyperlipidemia, hypertension, non-small cell lung cancer status post chemo and radiation currently on immunotherapy, ROBIN, and type 2 diabetes who presented to the emergency room and [facility] with complaints of shortness of breath. He normally wears only 2 L of oxygen at night but has been requiring oxygen during the day given his worsening shortness of breath. He has had an increased cough with sputum production yellow, thick mucus. He was admitted with concerns for community-acquired pneumonia and COPD exacerbation. Chest CTA on admission showed ground-glass opacity in the left consistent with pneumonia, stable 14 mm nodule in the right upper lobe consistent with primary bronchogenic carcinoma, severe emphysema, stable moderate size loculated right pleural effusion, and stable left small pleural effusion with PleurX catheter. CT was negative for PE. Pulmonology was consulted for assistance in management of see pneumonia. Patient underwent a thoracentesis with 1.1 L of fluid removed. Unfortunately studies were not ordered and therefore fluid was not cultured. Blood cultures with no growth to date. The patient was started on meropenem initially and deescalated to cefepime and azithromycin per pulmonology recommendation. He continued with scheduled nebulizers. He was unable to be weaned to room air and walking oxygen study was performed prior to discharge. During his hospitalization his hemoglobin dropped to 6.9 grams/deciliter. Anemia workup was conducted and found to be anemia of chronic disease. He received 1 unit of PRBCs and was given 63341 units of Epogen x1. He has been instructed to follow up with his oncologist Dr. Palma in the next 1-2 weeks. He has also been instructed to follow up with his portable canteen operator in the next 3 weeks with repeat chest x-ray ordered to assess pleural effusion. Overall he has done well and will be discharged home in stable condition with PCP, pulmonology, and Oncology follow- up recommended. Time Spent with Patient Time attestation: Total time spent providing and/or coordinating discharge services:75 Exam Narrative: General: appears comfortable, in no acute distress on 2 L NC Respiratory: breathing is unlabored with even chest rise/fall, lungs are clear and diminished without wheezing, rhonchi, and crackles Cardiovascular: Rate and rhythm regular, normal s1s2, no murmur Abdomen: Soft, round, non-tender, active bowel sounds Extremities: No cyanosis, edema, clubbing. Pulses 2/2 Neuro: A&O x 4 Skin: Warm, dry, intact DS: Data Data Completed and Pending Pending studies at discharge: Pending at discharge 01/03/24 07:42 Cytology [PTH] Routine Labs on day of discharge: Labs from last 24 hours 01/05/24 01/05/24 01/05/24 11:47 07:36 06:13 WBC 4.0 L RBC 2.80 L Hgb 8.2 L Hct 25.9 L MCV 92.5 MCH 29.3 MCHC 31.7 L RDW 17.9 H Plt Count 114 L MPV 9.2 Sodium 135 L Potassium 4.1 Chloride 104 Carbon Dioxide 24 Anion Gap 7 BUN 17 Creatinine 1.20 Estim Creat Clear Calc 42 Estimated GFR 58 L Glucose 223 H POC Capillary Glucose 203 H 195 H Calcium 8.7 Total Bilirubin 0.3 AST 39 ALT 41 Alkaline Phosphatase 75 Total Protein 7.0 Albumin 3.1 L Crossmatch 10/31/24 10/31/24 10/31/24 19:17 16:30 08:41 WBC RBC Hgb Hct MCV MCH MCHC RDW Plt Count MPV Sodium Potassium Chloride Carbon Dioxide Anion Gap BUN Creatinine Estim Creat Clear Calc Estimated GFR Glucose POC Capillary Glucose 210 H 255 H Calcium Total Bilirubin AST ALT Alkaline Phosphatase Total Protein Albumin Crossmatch See Detail Preliminary micro results at discharge 01/03/24 09:07 Sputum Culture - Preliminary Sputum 01/01/24 09:12 Blood Culture - Preliminary Blood 01/01/24 09:12 Blood Culture - Preliminary Blood Discharge Plan Discharge Attending physician on discharge: Elan Posey Consulting providers: Gera Garcia Discharging Clinician: Marie Ulrich Anticipated Discharge Date/Time: 01/05/24 11:53 Patient Disposition: Home, Self-Care Activity: july shower Diet: diabetic Discharge Instructions: Your admitted for shortness of breath and found have pneumonia to the left lower lobe. You also had moderate size right pleural effusion stable small left pleural effusion. No pulmonary embolism was seen. Neurology was consulted and you were started on IV antibiotics for community-acquired pneumonia, nebulizers, and increased oxygen requirements. A right thoracentesis was completed and removed 1.1 L fluid. You were also anemic and hemoglobin dipped below 7 to 6.9 grams/deciliter. He required 1 unit of blood transfusion. Your anemia is thought to be secondary to your chronic diseases. You received a dose of Epogen 13552 units today to help stimulate her bone marrow to make more blood cells. You need to follow-up with Dr. Willingham and the next few weeks. Please contact his office to make this appointment. Pulmonology would like you to continue levofloxacin 500 mg a every 48 hours for 2 more doses. You should continue your maintenance nebulize treatments. You need to follow-up with your portable canteen operator in the next 3 weeks and a repeat chest x-ray should be performed to assess for any reaccumulation of the right pleural effusion. Please continue to monitor for fever greater than 101, chills, body aches, worsening shortness of breath, or chest pain. Should you experience any of these symptoms he should come back to the emergency room for re-evaluation. Patient Instructions: Antibiotic Form, Pleural Effusion (DC), Community Acquired Pneumonia (DC) Stand Alone Forms: General Discharge Information Follow-up/Referrals: Stu,Silvio T., MD [Primary Care Provider] - Discharge Medications: New levofloxacin 500 mg tablet 500 mg PO Q48H Qty: 2 0RF Rx Instructions: start 01/05 Continued albuterol sulfate 90 mcg/actuation HFA aerosol inhaler 2 puff inhalation QID PRN (Reason: shortness of breath or wheezing) Qty: 8.5 0RF levothyroxine [Synthroid] 50 mcg Tablet 50 mcg PO DAILY@0630 Qty: 30 0RF citalopram 20 mg tablet 20 mg PO DAILY lorazepam 0.5 mg tablet 0.5 mg PO TID metformin 1,000 mg tablet 1,000 mg PO BID Hold Instructions: Resume on 07/28/23. Hold due to contrast interaction until 07/27 rosuvastatin 20 mg tablet 20 mg PO DAILY albuterol sulfate 2.5 mg /3 mL (0.083 %) solution for nebulization 2.5 mg inhalation TID insulin degludec [Tresiba FlexTouch U-100] 100 unit/mL (3 mL) insulin pen 15 unit SUBCUT HS Qty: 15 0RF Rx Instructions: please increase dose to 18 units while you are taking prednisone diphenhydramine-acetaminophen [Acetaminophen Ex Str Sleep Aid] 25-500 mg Tablet 1 tablet HS arformoterol 15 mcg/2 mL solution for nebulization 2 ml inhalation BID 30 Days Qty: 120 5RF ipratropium bromide 0.02 % solution 2.5 ml inhalation TID 30 Days Qty: 225 5RF Rx Instructions: Use one vial three times a day for COPD budesonide 0.5 mg/2 mL suspension for nebulization 0.5 mg inhalation BID 30 Days Qty: 120 5RF Other Ambulatory Orders: XR chest 2V (Routine) Timeframe: 3 Weeks Location: Determined by Patient Ordered By: Marie Ulrich Date of admission: 01/01/24 11:55 Primary Care Provider: Nato,Silvio Joshi Admitting Provider: Ender Ch Attending physician on admission: Marie Ulrich Condition: Improved Quality VTE Prophylaxis VTE prophylaxis: pharmacologic ordered (lovenox ordered )
[2024-01-05] MEDS: HEPARIN SODIUM LOCK FLUSH 500 UNITS/5 ML SYRINGE IV PUSH (13:53)
--- NOTE | 2024-01-05 14:31 | PCRCNOTE ---
HOME O2 NEEDED AT 2 L REST AND 2 L ACTIVITY. CURRENTLY WEARING THESE SETTINGS AT HOME WITH 3L NOCTURNALLY. STATES IN CHART PT HAS [facility] FOR PAP SUPPLIES. PT STATES HE HAS A POC AND STATIONARY CONCENTRATOR. RN NOTIFIED, OK TO D/C, HAS ALL O2 NEEDS AT HOME.
== END 2024-01-05 14:35 | disposition home or self-care (01) | DRG 193 ==
LOC: ANHED 11:54 → ANH3MED 12:00 → ANH3MEDSUR 01-03 23:11
PROVIDERS: Nurse Practitioner Family; Admitting Provider Internal Medicine; Emergency Provider General Practice; PCP Internal Medicine; Visit Provider Nurse Practitioner Acute Care
DX: J18.9 Pneumonia, unspecified organism (principal); J96.21 Acute and chronic respiratory failure with hypoxia; C34.90 Malignant neoplasm of unspecified part of unspecified bronchus or lung; J90 Pleural effusion, not elsewhere classified; J44.0 Chronic obstructive pulmonary disease with (acute) lower respiratory infection; J44.1 Chronic obstructive pulmonary disease with (acute) exacerbation; I12.9 Hypertensive chronic kidney disease with stage 1 through stage 4 chronic kidney disease, or unspecified chronic kidney disease; N18.30 Chronic kidney disease, stage 3 unspecified; D63.8 Anemia in other chronic diseases classified elsewhere; D69.6 Thrombocytopenia, unspecified; E11.22 Type 2 diabetes mellitus with diabetic chronic kidney disease; E03.9 Hypothyroidism, unspecified; E78.5 Hyperlipidemia, unspecified; G47.33 Obstructive sleep apnea (adult) (pediatric); Z85.038 Personal history of other malignant neoplasm of large intestine; Z99.81 Dependence on supplemental oxygen; Z87.891 Personal history of nicotine dependence
CPT/HCPCS: 32555; 36415; 36430; 36600; 71045; 71046; 71275; 80053; 82805; 82948; 83605; 83735; 85018; 85025; 85027; 85046; 85610; 85730; 86850; 86900; 86901; 86923; 87040; 87070; 87205; 87641; 93005; 94618; 94640; 96361; 96365; 96375; 99285; A9270; J0456; J0692; J0696; J1642; J1650; J1815; J2185; J3370; J7030; J7050; P9016; Q5105; Q9967

== ENCOUNTER 2024-03-26 08:34 | Outpatient (CLI) | payer MEDICARE, SELFPAY ==
--- NOTE | ~2024-03-26 | CT_ITS ---
Clinical Indication: Lung cancer CT Scan of the Chest with Contrast: Technique: Contiguous sections were acquired throughout the chest after intravenous administration of 75 cc of Omnipaque 350. Dose reduction technique was used on this scan by utilizing automated exposu re control and iterative reconstruction technique. The dose-length product (DLP) was 348.48 mGy-cm. COMPARISON: 01/01/2024 Findings: There is no evidence of any significant mediastinal, hilar or axillary lymphadenopathy. There is no f illing defect in the pulmonary arterial tree to suggest pulmonary embolus. There is no evidence of ao rtic dissection or aneurysm. No pericardial effusion. Small right pleural effusion is present, mildly decreased from prior exam. There is minimal left pleu ral fluid, essentially unchanged. Stable areas of irregular consolidation in the right upper lobe, probably represent posttreatment una nges and/or treated disease. There is advanced emphysema. Consolidation the left lower lobe is signif icantly improved from prior exam, which could reflect visual pneumonia or atelectasis, especially the medial aspect of the left lower lobe. There is moderate to advanced emphysema, especially in the upp er lobes. Stable irregular somewhat nodular opacities in the left upper lobe. Images through the upper abdomen reveal no abnormalities. Impression: Left lower lobe pneumonia is markedly improved from prior exam. There is residual medial left lower l obe consolidation which could reflect residual atelectasis/scarring or perhaps residual pneumonia. Stable irregular areas of consolidation and nodularity in the right upper lobe, likely representing p ost radiation change and/or treated disease. Stable focal irregular nodule opacities in the left upper lobe, again likely representing postradiati on change or treated disease. Advanced emphysema, especially the upper lobes. Small right pleural effusion, decreased from prior exam. Minimal left pleural fluid. Reviewed, dictated and finalized at location [facility] Impression: Left lower lobe pneumonia is markedly improved from prior exam. There is residu al medial left lower lobe consolidation which could reflect residual atelectasi s/scarring or perhaps residual pneumonia. Stable irregular areas of consolidation and nodularity in the right upper lobe, likely representing post radiation change and/or treated disease. Stable focal irregular nodule opacities in the left upper lobe, again likely re presenting postradiation change or treated disease. Advanced emphysema, especially the upper lobes. Small right pleural effusion, decreased from prior exam. Minimal left pleural f luid.
[2024-03-26 08:53] LABS: Estimated Glomerular Filt Rate 49
--- OUTSIDE RECORDS SUMMARY | 2024-03-28 16:16 | XMS_ITS | Encounter Summary ---
Author Organization [facility] Address [address] [place] [address] Care Team Providers Care Furniture Packer Name Role Phone Unavailable Primary Care Provider Unavailabl e Encounter Details Date Type Department Care Team (Late st Contact Info) Description 08/16/2023 Lab Requisition [facility] - Pathology Lab [address] [place] [address] Geovanni Perez MD [address] [place] [address] Illness, unspecified Social History Tobacco Use Types Packs/Day Years Used Date Smoking Tobacco: Never Assessed Sex and Gender Information Value Date Recorded Sex Assigned at Not on file Gender Identity Not on file Sexual Orientation Not on file documented as of this encounter Plan of Treatment Not on file documented as of this encounter Procedures Procedure Name Priority Date/Time Associated Diagnosis Comments BONE MARROW BIOPSY (STL) Routine 08/15/2023 9:30 AM CDT Illness, unspecified documented in this encounter Results * BONE MARROW BIOPSY (STL) (08/15/2023 9:30 AM CDT) Case Report Bone Marrow Patholog y Report ?Case: [id number] ? Authorizing Provider: ??Geovanni Perez ? Collected: ? 08/15/2023 09:30 AM ? Tevin, ? Ordering Location: ? [facility] - ??Received: ?08/16/2023 02:54 PM ? Pathology Lab ? Pathologist: ? Yessenia Thorne, ? Specimens: ?? A) - Bone Marrow Clot ? B) - Bone Marrow Core ? 08/17/2023 1:37 PM CDT [facility] Final Diagnosis Bone marrow, iliac crest, core biopsy, clot section, and aspirate: - Normocellular marrow for age with maturing trilineage hematopoiesis - No lymphoma, high-grade myeloid neoplasm, or metastatic disease seen 08/17/2023 1:37 PM [facility] Peripheral Smear Description Normocytic anemia, thrombocytopenia. Leukocyte number: normal. Granulocyte morphology: normal. Lymphocyte morphology: normal. Erythrocyte number: decreased. Erythrocyte morphology: normocytic. Anisopoikilocytosis: mild. Polychromasia: mild. Platelet number: decreased. Platelet morphology: normal. 08/17/2023 1:37 PM [facility] Bone Marrow Aspirate Differential count (200 cells): 0% blasts, 51.5% maturing myeloid precursors, 33% erythroid progenitors, 0.5% monocytes, 1% eosinophils, 14% lymphocytes, 0% plasma cells. Specimen quality: adequate. Spicules: present. Trilineage Hematopoiesis: present. Myeloid:Erythroid ratio: normal. Myeloid Maturation: normal. Erythroid Maturation: normal. Megakaryocyte morphology: normal nuclear lobation. Storage iron (by special stain): slightly increased. Sideroblastic iron (by special stain): no ring sideroblasts. 08/17/2023 1:37 PM [facility] Bone Marrow Core Biopsy and Clot Section Description Specimen quality: adequate with 1.8 cm of evaluable marrow. Cellularity: 20-30% Trilineage Hematopoiesis: present. Myeloid to Erythroid ratio: normal. Myeloid maturation and localization: normal. Erythroid maturation and localization: normal. Megakaryocyte number: normal. Megakaryocyte distribution: normal. Lymphoid aggregates: absent. Bone trabeculae: thin. Blood vessels: normal. Plasma cells: normal. Clot section marrow particles: present. Clot section morphology: similar to core biopsy. 08/17/2023 1:37 PM [facility] Flow Cytometry Summary Flow cytometry identified no clonal B-cell or increased blast population ([id number]). 08/17/2023 1:37 PM [facility] Clinical History The patient is an 83-year-old male with history of T1bN2/3 unresectable non-small cell lung adenocarcinoma (diagnosed 09/06/2022) s/p radiation (completed 12/19/2022) and chemotherapy, currently on maintenance durvalumab. He presents for follow up with fatigue and found to be anemic and thrombocytopenic. 08/17/2023 1:37 PM T [facility] Materials Received Received are 23 slide(s) and 2 blocks labeled [id number] along with a copy of the outside pathology report. [place] [address] . All original materials are returned to the referring institution, along with a copy of our final report. 08/17/2023 1:37 PM CDT [facility] Microscopic Description No overt morphologic features of dyspoiesis are seen. 08/17/2023 1:37 PM CDT [facility] Pathologist Location at [facility] 08/17/2023 1:37 PM T [facility] Disclaimer The performance characteristics of all immunohistochemical and indirect immunofluorescence stains (if any) cited in this report were determined by the Histopathology Laboratory of [facility]. Some of these tests were developed by our own laboratory and have not been cleared or approved by the US Food and Drug Administration. The FDA does not require this test to go through premarket FDA review. These tests are used for clinical purposes. They should not be regarded as investigational or for research. This laboratory is certified under the Clinical Laboratory Improvement Amendments (CLIA) as qualified to perform high complexity clinical laboratory testing. This case has been personally reviewed and interpreted by the attending (teaching) pathologist. 08/17/2023 1:37 PM CDT [facility] Embedded Images 08/17/2023 1:37 PM CDT [facility] Pathology/Cytology BONE MARROW SPECIMEN / Unknown 08/15/2023 9:30 AM CDT 08/16/2023 2:54 PM CDT Miscellaneous samples (specimen) BONE MARROW SPECIMEN / Unknown 08/15/2023 9:30 AM CDT 08/16/2023 2:54 PM CDT Geovanni Perez MD LAB - PATHO LOGY/CYTOLOGY ORDERABLES [facility] [address] [place] [address], [facility] [phone] documented in this encounter Visit Diagnoses Diagnosis Illness, unspecified documented in this encounter
--- OUTSIDE RECORDS SUMMARY | 2024-03-28 16:16 | XMS_ITS | Patient Health Summary ---
Author Organization [facility] Address [address] [address] Care Team Providers Care Research Consultant Name Role Phone Unavailable Primary Care Provider Unavailabl e Note from [facility],non-owned Affiliates and Associated Physician Practices is amultiple site organization consisting of ambulatory clinics and hospital sitesin [place], [place], [place] and [place]. This disclosure is being madepursuant to the Care Everywhere program and may not contain all information available regarding this patient. Last updated 17.[facility] Social History Tobacco Use Types Packs/Day Years Used Date Smoking Tobacco: Never Assessed Sex and Gender Information Value Date Recorded Sex Assigned at Not on file Gender Identity Not on file Sexual Orientation Not on file Procedures * BONE MARROW BIOPSY (STL)(Performed 08/15/2023) Performed for Illness, unspecified * FLOW CYTOMETRY BONE MARROW(Performed 08/15/2023) Performed for Anemia, unspecified Results * FLOW CYTOMETRY BONE MARROW (08/15/2023 9:30 AM CDT) Case Report Flow Cytometry ?Case: [id number] ? Authorizing Provider: ??Geovanni Perez ? Collected: ? 08/15/2023 09:30 AM ? MD Tevin ? Ordering Location: ? [facility] - ??Received: ?08/15/2023 11:35 AM ? Pathology Lab ? Pathologist: ? Yessenia Thorne MD ? Specimen: ?Bone Marrow ? 08/15/2023 3:51 PM CDT [facility] Amended Report Inadvertently omitted was the final diagnosis. This was added. 08/15/2023 3:51 PM CDT [facility] Final Diagnosis Bone marrow, flow cytometry: - No clonal B-cell or increased blast population detected 08/15/2023 3:51 PM CDT [facility] Amendment electronically signed by Yessenia Thorne MD on 08/15/2023 at 3:51 PM Flow Cytometry Interpretation Viability: 92% B-cells: polytypic, kappa:lambda ratio 2:1 T-cells: not increased Blasts: not increased, 0.5% of overall events are myeloblasts and 0.7% of overall events represent hematogones A bone marrow aspirate smear prepared from the flow cytometry specimen has been reviewed for quality management nurse purposes. 08/15/2023 3:51 PM [facility] Flow Cytometry Results Differential Result Comment Flow Cell Count /uL 36,600 Total Viability % 92.0 Lymphocytes % 8 Dim CD45 Region % 4 Monocytes % 5 Granulocytes % 83 08/15/2023 3:51 PM [facility] Reason for test Anemia, unspecified 285.9 08/15/2023 3:51 PM [facility] Client Specimen ID # [id number] 08/15/2023 3:51 PM [facility] Number of markers 19 were performed. A-2 Flow CD10 A-3 Flow CD13 A-5 Flow CD20 A-11 Flow CD2 A-13 Flow CD14 A-16 Flow CD117 A-17 Flow CD11b A-18 Flow CD11c A-1 Flow CD5 A-4 Flow CD19 A-6 Flow CD33 A-7 Flow CD34 A-8 Flow CD45 A-12 Flow CD7 A-14 Flow CD56 A-15 Flow CD64 A-9 [place]+CD19+ A-10 Lambda+CD19+ A-19 Flow HLA-DR 08/15/2023 3:51 PM [facility] Pathologist Location at [facility] 08/15/2023 3:51 PM [facility] Disclaimer Test performed at [facility], [address] [place] [address], [id number]. *The established laboratory minimum viability is 70%. Values below the minimum may result in the failure to find an abnormal population of cells. This test was developed and its performance characteristics determined by the Flow Cytometry Laboratory. It has not been cleared by the [place] Food and Drug Administration (FDA). The FDA has determined that such clearance or approval is not necessary. This test is used for clinical purposes. It should not be regarded as investigational or for research. This laboratory is regulated under the Clinical Laboratory Improvement Amendments of 1998 (CLIA) as a qualified to perform high complexity clinical testing. 08/15/2023 3:51 PM [facility] Embedded Images 06/11/202 4 3:51 PM CDT [facility] Pathology/Cytolo gy BONE MARROW SPECIMEN / Unknown 08/15/2023 9:30 AM CDT 08/15/2023 11:35 AM CDT Geovanni Perez MD LAB - PATHO LOGY/CYTOLOGY ORDERABLES [facility] [address] [place] [id number], [facility] [phone] * BONE MARROW BIOPSY (STL) (08/15/2023 9:30 AM CDT) Case Report Bone Marrow Patholog y Report ?Case: [id number] ? Authorizing Provider: ??Geovanni Perez ? Collected: ? 08/15/2023 09:30 AM ? MD Tevin ? Ordering Location: ? [facility] - ??Received: ?08/16/2023 02:54 PM ? Pathology Lab ? Pathologist: ? Yessenia Thorne MD ? Specimens: ?? A) - Bone Marrow Clot ? B) - Bone Marrow Core ? 08/17/2023 1:37 PM [facility] Final Diagnosis Bone marrow, iliac crest, core biopsy, clot section, and aspirate: - Normocellular marrow for age with maturing trilineage hematopoiesis - No lymphoma, high-grade myeloid neoplasm, or metastatic disease seen 08/17/2023 1:37 PM [facility] Peripheral Smear Description Normocytic anemia, thrombocytopenia. Leukocyte number: normal. Granulocyte morphology: normal. Lymphocyte morphology: normal. Erythrocyte number: decreased. Erythrocyte morphology: normocytic. Anisopoikilocytosis: mild. Polychromasia: mild. Platelet number: decreased. Platelet morphology: normal. 08/17/2023 1:37 PM [facility] Bone Marrow Aspirate Differential [...] stain): no ring sideroblasts. 08/17/2023 1:37 PM [facility] Bone Marrow Core Biopsy [...] similar to core biopsy. 08/17/2023 1:37 PM [facility] Flow Cytometry Summary Flow cytometry identified no clonal B-cell or increased blast population ([id number]). 08/17/2023 1:37 PM [facility] Clinical History The patient is an 83-year-old male with history of T1bN2/3 unresectable non-small cell lung adenocarcinoma (diagnosed 09/06/2022) s/p radiation (completed 12/19/2022) and chemotherapy, currently on maintenance durvalumab. He presents for follow up with fatigue and found to be anemic and thrombocytopenic. 08/17/2023 1:37 PM [facility] Materials Received Received are 23 slide(s) and 2 blocks labeled [id number] along with a copy of the outside pathology report. [place] [address] . All original materials are returned to the referring institution, along with a copy of our final report. 08/17/2023 1:37 PM [facility] Microscopic Description No overt morphologic features of dyspoiesis are seen. 08/17/2023 1:37 PM [facility] Pathologist Location at [facility] 08/17/2023 1:37 PM [facility] Disclaimer The performance characteristics of all immunohistochemical and indirect immunofluorescence stains (if any) cited in this report were determined by the [facility]. Some of these tests were developed by [...] attending (teaching) pathologist. 08/17/2023 1:37 PM CDT [facility] Embedded Images 08/17/2023 1:37 PM CDT [facility] Pathology/Cytology BONE MARROW SPECIMEN / Unknown 08/15/2023 9:30 AM CDT 08/16/2023 2:54 PM CDT Miscellaneous samples (specimen) BONE MARROW SPECIMEN / Unknown 08/15/2023 9:30 AM CDT 08/16/2023 2:54 PM CDT Geovanni Perez MD LAB - PATHO LOGY/CYTOLOGY ORDERABLES [facility] [address]. [place], [place] [address] [phone]
--- OUTSIDE RECORDS SUMMARY | 2024-03-28 16:16 | XMS_ITS | Clinical Summary ---
Author Organization [facility] Address [address] [facility] [address] [place] [address] [place] [address] Care Team Providers Care Awning Installer Name Role Phone Unavailable Primary Care Provider Unavailabl e Social History Tobacco Use Types Packs/Day Years Used Date Smoking Tobacco: Never Assessed Sex and Gender Information Value Date Recorded Sex Assigned at Not on file Legal Sex Male 5:30 PM CDT Gender Identity Not on file Sexual Orientation Not on file Plan of Treatment Health Maintenance Due Date Last Done Comments DTaP, Tdap and Td Vaccines ( 1 - Tdap) 1961 Zoster Vaccines (1 of 2) 01/21/1992 Pneumococcal Vaccine: 65+ Ye ars (1 of 1 - PCV) 2007 RSV Immunization or 60+ Years (1 - 1-dose 75+ series) 2017 COVID-19 Vaccine (2023-2 5 season) 2023 Influenza Adult (#1) 2023 Meningococcal Vaccine Aged Out No jairo carrie eligible based on patient's age to complete this topic RSV Immunizations Under 20 Months Aged Out No longer eligible based on patient's age to complete this topic
--- OUTSIDE RECORDS SUMMARY | 2024-03-28 16:16 | XMS_ITS | Continuity of Care Document ---
Author Organization [facility] Address [address] [place] [address] [address] [place] [address] Phone Care Team Providers Care Car Driver Name Role Phone Shultz OD, Remington Unavailable Unavailable Advance Directives Directive Yes / No Effective Date File Name No Information Encounters Encounter Description Practice Location Reason(s) For Visit Diagnoses Date Provider Providers Copied on Encounter [facility], [address], [place], [place], [id number], [place] tel:[phone] [address] [facility] No Information Dec-2 3-200 5 Shultz OD Rem[place]. [address] [place] , [address], [place], [address], [place]. tel:[phone] Referring Provider: Silvio Dutton, [address] [place] [address], [facility]. tel:[phone] Family History Family Member Type Diagnosis Age At Onset No Information Payers Payer name Insurance type Covered green party ID Authoriza tijed(s) [employer] Plan CI [id number] Social History Type Description Quantity Date Captured [...]
--- OUTSIDE RECORDS SUMMARY | 2024-03-28 16:16 | XMS_ITS | Encounter Summary ---
Author Organization [facility] Address [address] [place] [address] Care Team Providers Care Ammonia Box Operator Name Role Phone Unavailable Primary Care Provider Unavailabl e Encounter Details Date Type Department Care Team (Late st Contact Info) Description 08/15/2023 Lab Requisition [facility] - Pathology Lab [address] [place] [address] Geovanni Perez MD [address] [place] [address] Anemia, unspecified Social History Tobacco Use Types Packs/Day Years Used Date Smoking Tobacco: Never Assessed Sex and Gender Information Value Date Recorded Sex Assigned at Not on file Gender Identity Not on file Sexual Orientation Not on file documented as of this encounter Plan of Treatment Not on file documented as of this encounter Procedures Procedure Name Priority Date/Time Associated Diagnosis Comments FLOW CYTOMETRY BONE MARROW Routine 08/15/2023 9:30 AM CDT Anemia, unspecified documented in this encounter Results * FLOW CYTOMETRY BONE MARROW (08/15/2023 9:30 AM CDT) Case Report Flow Cytometry ?Case: [id number] ? Authorizing Provider: ??Geovanni Perez ? Collected: ? 08/15/2023 09:30 AM ? MD Tevin ? [facility] ??Received: ?08/15/2023 11:35 AM ? Pathology Lab ? Pathologist: ? Yessenia Thorne MD ? Specimen: ?Bone Marrow ? 08/15/2023 3:51 PM CDT [facility] Amended Report Inadvertently omitted was the final diagnosis. This was added. 08/15/2023 3:51 PM CDT [facility] Final Diagnosis Bone marrow, flow cytometry: - No clonal B-cell or increased blast population detected 08/15/2023 3:51 PM CDT [facility] Amendment electronically signed by Yessenia Thorne MD on 08/15/2023 at 3:51 PM Flow Cytometry Interpretation Viability: 92% B-cells: polytypic, kappa:lambda ratio 2:1 T-cells: not increased Blasts: not increased, 0.5% of overall events are myeloblasts and 0.7% of overall events represent hematogones A bone marrow aspirate smear prepared from the flow cytometry specimen has been reviewed for fiberglass quality technician purposes. 08/15/2023 3:51 PM [facility] Flow Cytometry Results Differential Result Comment Flow Cell Count /uL 36,600 Total Viability % 92.0 Lymphocytes % 8 Dim CD45 Region % 4 Monocytes % 5 Granulocytes % 83 08/15/2023 3:51 PM CDT [facility] Reason for test Anemia, unspecified 285.9 08/15/2023 3:51 PM [facility] Client Specimen ID # [id number] 08/15/2023 3:51 PM [facility] Number of markers 19 were performed. A-2 Flow CD10 A-3 Flow CD13 A-5 Flow CD20 A-11 Flow CD2 A-13 Flow CD14 A-16 Flow CD117 A-17 Flow CD11b A-18 Flow CD11c A-1 Flow CD5 A-4 Flow CD19 A-6 Flow CD33 A-7 Flow CD34 A-8 Flow CD45 A-12 Flow CD7 A-14 Flow CD56 A-15 Flow CD64 A-9 [place]+CD19+ A-10 Lambda+CD19+ A-19 Flow HLA-DR 08/15/2023 3:51 PM [facility] Pathologist Location at [facility] 08/15/2023 3:51 PM T [facility] Disclaimer Test performed at [facility], [address] [place] [address], [address]. *The established laboratory minimum viability is 70%. [...] high complexity clinical testing. 08/15/2023 3:51 PM CDT [facility] Embedded Images 3:51 PM CDT [facility] Pathology/Cytolo gy BONE MARROW SPECIMEN / Unknown 08/15/2023 9:30 AM CDT 08/15/2023 11:35 AM CDT Geovanni Perez MD LAB - PATHO LOGY/CYTOLOGY ORDERABLES Performing Organization Address City/State/[facility] Co de Phone Number [facility] [address] [phone] documented in this encounter Visit Diagnoses Diagnosis Anemia, unspecified documented in this encounter
--- OUTSIDE RECORDS SUMMARY | 2024-03-28 16:16 | XMS_ITS | Referral Summary ---
Author Organization [facility] Address [address] [place] [address] Care Team Providers Care Assistant Store Leader Name Role Phone Unavailable Primary Care Provider Unavailabl e Source Comments [facility],non-owned Affiliates and Associated Physician Practices is amultiple site organization consisting of ambulatory clinics and hospital sitesin [place], [place]. This disclosure is being madepursuant to the Care Everywhere program and may not contain all information available regarding this patient. Last updated 17.[facility] Social History Tobacco Use Types Packs/Day Years Used Date Smoking Tobacco: Never Assessed Sex and Gender Information Value Date Recorded Sex Assigned at Not on file Gender Identity Not on file Sexual Orientation Not on file Plan of Treatment Not on file
--- OUTSIDE RECORDS SUMMARY | 2024-03-28 16:16 | XMS_ITS | CONTINUITY OF CARE DOCUMENT ---
Author Name chloe corona Address Unknown Organization [facility] Address [address] [place] [address] Phone [phone] Care Team Providers Care Glass Lathe Operator Name Role Phone chloe corona Unavailable Unavailable
--- OUTSIDE RECORDS SUMMARY | 2024-03-28 16:16 | XMS_ITS | Clinical Summary ---
Author Organization [facility] Address [address] [place] [address] Care Team Providers Care Game Programmer Name Role Phone Unavailable Primary Care Provider Unavailabl e Source Comments [facility],non-owned Affiliates and Associated Physician Practices is amultiple site organization consisting of ambulatory clinics and hospital sitesin [place], [place], [place] and [place]. This disclosure is being madepursuant to the Care Everywhere program and may not contain all information available regarding this patient. Last updated 17.[facility] [employer] Social History Tobacco Use Types Packs/Day Years Used Date Smoking Tobacco: Never Assessed Sex and Gender Information Value Date Recorded Sex Assigned at Not on file Gender Identity Not on file Sexual Orientation Not on file Plan of Treatment Health Maintenance Due Date Last Done Comments MEDICARE AWV ? 12 MONTHS 1942 DTAP/TDAP/TD VACCINES (1 - Tdap) 1961 PNEUMOCOCCAL VACCINE 50+ (1 of 1 - PCV) 01/21/1992 ZOSTER VACCINE (1 of 2) 01/21/1992 Respiratory Syncytial Virus (RSV) Vaccine Pt: or over 60 yrs (1 - 1-dose 75+ series) 2017 COVID-19 VACCINE ( - 2023-2 5 season) 2023 INFLUENZA VACCINE (#1) 2023 DEPRESSION SCREENING 03/06/2024 HEPATITIS B VACCINE Aged Out No longe r eligible based on patient's age to complete this topic HIB VACCINE Aged Out No longer eligi ble based on patient's age to complete this topic HPV VACCINE Aged Out No longer eligi ble based on patient's age to complete this topic MENINGOCOCCAL (Group B) VACCINE Aged Out No longer eligible based on patient's age to complete this topic MENINGOCOCCAL VACCINE Aged Out No jairo carrie eligible based on patient's age to complete this topic
== END 2024-03-26 08:35 | disposition home or self-care (01) ==
PROVIDERS: PCP Internal Medicine; Visit Provider Internal Medicine Hematology & Oncology
DX: C34.90 Malignant neoplasm of unspecified part of unspecified bronchus or lung (principal); R91.1 Solitary pulmonary nodule; R91.8 Other nonspecific abnormal finding of lung field; J43.9 Emphysema, unspecified; J90 Pleural effusion, not elsewhere classified
CPT/HCPCS: 71260; Q9967

== ENCOUNTER 2024-06-11 09:35 | Outpatient (CLI) | payer MEDICARE, SELFPAY ==
[2024-06-11 10:16] LABS: Basophils Percent Auto 0.5 % (0.2-1.2); Eosinophils Absolute Auto 0.1 K/mm3 (0-0.3); Eosinophils Percent Auto 1.6 % (0-4.4); Hematocrit 34.3 % (42.0-52.0); Hemoglobin 10.1 g/dL (14.0-18.0); Immature Granulocyte Absolute 0.06 K/mm3 (0.00-0.031); Immature Granulocyte Percent A 0.9 % (0-0.5); Lymphocytes Absolute Auto 0.76 K/mm3 (0.9-3.2); Lymphocytes Percent Auto 11.9 % (18.3-44.2); Mean Corpuscular HGB Conc 29.4 g/dl (32-36); Mean Corpuscular Hemoglobin 27.8 pg (26-34); Mean Corpuscular Volume 94.5 fl (80-100); Mean Platelet Volume 9.4 fl (7.4-10.4); Monocytes Absolute Auto 0.4 K/mm3 (0.1-0.6); Monocytes Percent Auto 6.6 % (2.6-8.5); Neutrophils Percent Auto 78.5 % (45.5-73.1); Platelet Count Result 163 k/mm3 (150-375); Red Blood Count 3.63 M/mm3 (4.6-6.20); Red Cell Distribution Width 18.4 % (11.5-14.5); White Blood Count 6.4 K/mm3 (4.5-10.0)
[2024-06-11 10:31] LABS: Alanine Aminotransferase 14 U/L (6-50); Albumin Level 4.2 g/dL (3.5-5.1); Alkaline Phosphatase 95 U/L (38-126); Anion Gap 12 mmol/L (4-12); Aspartate Amino Transferase 25 U/L (17-59); Bilirubin,Total 0.3 mg/dL (0.2-1.3); Blood Urea Nitrogen 27 mg/dL (9-20); Calcium 9.2 mg/dL (8.4-10.2); Carbon Dioxide 24 mmol/L (22-30); Chloride 105 mmol/L (98-107); Cholesterol 95 mg/dL (0-200); Estimated Glomerular Filt Rate 50; Glucose 108 mg/dL (65-110); HDL Direct 32 mg/dL; Potassium 4.6 mmol/L (3.4-5.0); Sodium 141 mmol/L (137-145); Triglycerides 135 mg/dL (<150)
--- OUTSIDE RECORDS SUMMARY | 2024-06-11 10:32 | XMS_ITS | Clinical Summary ---
Author Organization [facility] Address [address] [place] [address] Phone Care Team Providers Care Manager Community Outreach Name Role Phone Silvio Dutton MD Primary Care Provider [phone] Allergies Active Allergy Reactions Criticality Noted Date Comments Codeine Other (See Comments) 10/07/2022 Chest pain 20 years ago Niacin Other (See Comments) 09/14/2023 Flush Medications citalopram (CeleXA) 20 mg tablet Take 20 mg by mouth daily at bedtime. Active LORazepam (ATIVAN) 0.5 mg tablet Take 0.5 mg by mouth every 6 hours as needed for Anxiety. Active metFORMIN (GLUCOPHAGE) 1,000 mg tablet Take 1,000 mg by mouth 2 times daily with meals. Active rosuvastatin (CRESTOR) 20 mg tablet Take 20 mg by mouth daily. Active albuterol (PROVENTIL,BOOGIE LANI) 2.5 mg /3 mL (0.083 %) Solution for Nebulization Take 2.5 mg by inhalation one time only. Active insulin degludec (Tresiba FlexTouch U-100) 100 unit/mL pen syringe Inject 15 Units by subcutaneous injection daily with breakfast. Active ondansetron (ZOFRAN ODT) 8 mg Tablet, Rapid DissolveIndicati ons:Non-small cell lung cancer, unspecified laterality (CMS/HCC) Dissolve 1 tablet on top of tongue then swallow with saliva every 8 hours as needed for nausea or vomiting 30 Tablet 1 10/26/19 23 Active lidocaine-priloc juan (EMLA) 2.5-2.5 % CreamIndications :Non-small cell lung cancer, unspecified laterality (CMS/HCC) Apply to affected area see administration instructions. 30 Gram 1 10/26/19 23 Active dexAMETHasone (DECADRON) 4 mg tabletIndication s:Non-small cell lung cancer, unspecified laterality (CMS/HCC) Take 1 tablet by mouth BID day prior to treatment, day of treatment, and day after treatment. 6 Tablet 3 10/26/19 23 Active sucralfate (Carafate) 100 mg/mL suspension Take 10 mL (1 Gram) by mouth every 6 hours. 414 mL 12/23/19 23 Active folic acid (FOLVITE) 1 mg tabletIndication s:Non-small cell lung cancer, unspecified laterality (CMS/HCC) TAKE 1 TABLET BY MOUTH ONCE DAILY STARTING ONE WEEK PRIOR TO TREATMENT AND CONTINUING 21 DAYS AFTER LAST TREATMENT 30 Tablet 2 03/08/19 24 Active CYANOCOBALAMIN, VITAMIN B-12, ORAL Take by mouth. Activ e megestroL (MEGACE) 400 mg/10 mL (40 mg/mL) suspension Take 10 mL (400 mg) by mouth daily. 240 mL 1 12/26/19 24 Active levoFLOXacin (LEVAQUIN) 500 mg tablet Take 1 Tablet (500 mg) by mouth daily for 7 days. 7 Tablet 05/07/19 25 025 Active Problems Problem Noted Date Diagnosed Date Lung nodule 10/07/2022 Mediastinal lymphadenopathy 10/07/2022 Encounters Date Type Department Care Team Description 06/10/[address] [facility]ology - [place] [address] [place] [address] Chet Willingham MD Non-small cell lung cancer, unspecified laterality (CMS/HCC) 05/27/[address] [facility]ology - [place] [address] [place] [address] Chet Willingham MD Non-small cell lung cancer, unspecified laterality (CMS/HCC) 05/22/2024 External Device Data STL ABSTRACTION Provider, Abstract 05/13/[address] [facility]ematology - [place] [address] [place] [address] Chet Willingham MD Non-small cell lung cancer, unspecified laterality (CMS/HCC) 05/11/2024 External Device Data STL ABSTRACTION Provider, Abstract 05/10/2024 External Device Data STL ABSTRACTION Provider, Abstract 05/06/[address] [facility]ematology - [place] [address] [place] [phone] Chet Willingham MD [facility] 04/29/[address] [facility] and Hematology - [place] [address] [place] [address] Chet Willingham MD Non-small cell lung cancer, unspecified laterality (CMS/HCC) 04/24/2024 External Device Data STL ABSTRACTION Provider, Abstract 04/15/[address] [facility]ology - [place] [address] [place] [id number] Chet Willingham MD Non-small cell lung cancer, unspecified laterality (CMS/HCC) 04/02/2024 9:45 AM CART ATTENDANT Office Visit [facility]ology - [place] [address] [place] [address] Chet Willingham MD Non-small cell lung cancer, unspecified laterality (CMS/HCC) (Primary Dx); Chronic anemia 04/02/[address] [facility]ology - [place] [address] [place] [id number] Chet Willingham MD 04/01/[address] [facility] - [place] [address] [place] [address] Chet Willingham MD Non-small cell lung cancer, unspecified laterality (CMS/HCC) 03/28/2024 External Device Data STL ABSTRACTION Provider, Abstract 03/27/[address] [facility]ology - [place] [address] [place] [address] Chet Willingham MD 03/26/[address] [facility]ology - [place] [address] [place] [address] Chet Willingham MD 03/25/[address] [facility]ology - [place] [address] [place] [address] Chet Willingham MD Benign hypertension 03/18/[address] [facility]ology - [place] [address] [place] [address] Chet Willingham MD Non-small cell lung cancer, unspecified laterality (CMS/HCC) from Last 3 Months Family History Relation Name Status Comments Daughter 1 Alive Daughter 2 Alive Daughter 3 Alive Father Mother Sister Son 1 Alive Son 2 Alive Social History Tobacco Use Types Packs/Day Years Used Date Smoking Tobacco: Former Cigarettes 1.3 65.7 0 03/06/2023 - 12/05/2023 Smokeless Tobacco: Never Tobacco Cessation:Counseling Given: Not Answered Alcohol Use Standard Drinks/Week Comments Never 0 (1 standard drink = 0.6 oz pur e alcohol) Sex and Gender Information Value Date Recorded Sex Assigned at Not on file Legal Sex Male 12:10 PM CDT Gender Identity Not on file Sexual Orientation Not on file Last Filed Vital Signs Vital Sign Reading Time Taken Comments Blood Pressure 127/58 04/02/2024 9:45 AM CART ATTENDANT Pulse 118 04/02/2024 9:45 AM CART ATTENDANT Temperature 36.1 C (96.9 F) 04/02/2024 9:45 AM CART ATTENDANT Respiratory Rate 15 04/02/2024 9:45 AM CART ATTENDANT Oxygen Saturation 93% 04/02/2024 9:45 AM CART ATTENDANT Inhaled Oxygen Concentration - - Weight 80.3 kg (177 lb) 04/02/2024 9:45 AM CART ATTENDANT Height 172.7 cm (5' 8 ) 01/23/2024 12:17 PM CART ATTENDANT Body Mass Index 26.91 01/23/2024 12:17 PM CART ATTENDANT Plan of Treatment Upcoming Encounters Date Type Department Care Team (Late st Contact Info) Description 07/05/2024 9:15 AM CDT Office Visit [facility] On[facility] and Hematology - [place] [address] [place] [address] Chet Willingham MD [address] [facility] [address] [place] [address] Health Maintenance Due Date Last Done Comments DIABETES ANNUAL FOOT EXAM 01/21/1960 DIABETES ANNUAL RETINAL EXAM 01/21/1960 DIABETES HBA1C Q 6 MONTHS 01/21/1960 DIABETES MICROALBUMIN ANNUAL SCREEN 01/21/1960 LDL CHOLESTEROL ANNUAL 01/21/1960 DTAP/TDAP/TD VACCINES (1 - Tdap) 1961 Traditional Medicare (ACO) A nnual Wellness Visit 1961 ZOSTER VACCINE (1 of 2) 01/21/1992 RSV VACCINE (60+ or ) (1 - 1-dose 75+ series) 2017 PNEUMOCOCCAL VACCINE 50+ YEA RS (2 of 2 - PPSV23) 03/14/2017 01/17/2017 INFLUENZA VACCINE (#1) 2023 , 12/05/2017, 12/20/2016, Additional history exists Procedures Procedure Name Priority Date/Time Associated Diagnosis Comments BASIC METABOLIC PANEL Routine 04/02/2024 4:06 PM CART ATTENDANT COMPREHENSIVE METABOLIC PANEL Routine 04/02/2024 4:00 PM CART ATTENDANT CREATININE Routine 03/26/2024 2:[address] CHEST W CONTRAST Routine 03/26/2024 2 :04 PM CART ATTENDANT from Last 3 Months Results * BASIC METABOLIC PANEL (04/02/2024 4:06 PM CART ATTENDANT) Blood us Chet Willingham MD CHEMISTRY ORDERABLES Final Resu lt * COMPREHENSIVE METABOLIC PANEL (04/02/2024 4:00 PM CART ATTENDANT) Blood Chet Willingham MD CHEMISTRY ORDERABLES Final Resu lt * CREATININE (03/26/2024 2:14 PM CART ATTENDANT) Blood us Chet Willingham MD CHEMISTRY ORDERABLES Final Resu lt * CT CHEST W CONTRAST (03/26/2024 2:04 PM CART ATTENDANT) Anatomical Region Laterality Modality Chest Computed Tomogra phy us Chet Willingham MD CT ORDERABLES Final Result from Last 3 Months Insurance MEDICARE PART A AND B [employer] [facility] SU[facility] Care Teams Manager Community Outreach Relationship Specialty Start Date End Date Silvio Dutton MD [address] [place] [address] PCP - General Internal Medicine 10/18/22
--- OUTSIDE RECORDS SUMMARY | 2024-06-11 10:32 | XMS_ITS | Clinical Summary ---
Author Organization [facility] Address [address] [place] [address] Care Team Providers Care Home Manager Name Role Phone Unavailable Primary Care Provider [...] - 1-dose 75+ series) 2017 COVID-19 Vaccine ( - 2023-2 5 season) 2023 Meningococcal B Vaccine Aged Out No l onger eligible based on patient's age to complete this topic Meningococcal Vaccine Aged Out No jairo carrie eligible based on patient's age to complete this topic RSV Immunizations Under 20 Months Aged Out No longer eligible based on patient's age to complete this topic
--- OUTSIDE RECORDS SUMMARY | 2024-06-11 10:32 | XMS_ITS | Encounter Summary ---
Author Organization [facility] Address [address] [facility] [place] [address] Care Team Providers Care Clinical Material Handler Name Role Phone Unavailable Primary Care Provider Unavailabl e Encounter Details Date Type Department Care Team (Late st Contact Info) Description 08/16/2023 Lab Requisition [facility] - Pathology Lab [address] [place] [address] Geovanni Perez MD [address] [address] Illness, unspecified Social History Tobacco Use [...] Case Report Bone Marrow Patholog y Report Case: [id number] Authorizing Provider: Geovanni Perez Collected: 08/15/2023 09:30 AM MD Tevin Ordering Location: [facility] - Received: 08/16/2023 02:54 PM Pathology Lab Pathologist: Yessenia Thorne MD Specimens: A) - Bone Marrow Clot B) - Bone Marrow Core 08/17/2023 1:37 PM CDT [facility] Final Diagnosis Bone marrow, iliac crest, core biopsy, clot section, and aspirate: - Normocellular marrow for age with maturing trilineage hematopoiesis - No lymphoma, high-grade myeloid neoplasm, or metastatic disease seen 08/17/2023 1:37 PM [facility] Peripheral Smear Description Normocytic anemia, thrombocytopenia. Leukocyte number: normal. Granulocyte morphology: normal. Lymphocyte morphology: normal. Erythrocyte number: decreased. Erythrocyte morphology: normocytic. Anisopoikilocytosis: mild. Polychromasia: mild. Platelet number: decreased. Platelet morphology: normal. 08/17/2023 1:37 PM [facility] Bone Marrow Aspirate Differential [...] stain): no ring sideroblasts. 08/17/2023 1:37 PM [facility] Bone Marrow Core Biopsy [...] similar to core biopsy. 08/17/2023 1:37 PM [facility] Flow Cytometry Summary Flow cytometry identified no clonal B-cell or increased blast population ([id number]). 08/17/2023 1:37 PM [facility] Clinical History The patient is an 83-year-old male with history of T1bN2/3 unresectable non-small cell lung adenocarcinoma (diagnosed 09/06/2022) s/p radiation (completed 12/19/2022) and chemotherapy, currently on maintenance durvalumab. He presents for follow up with fatigue and found to be anemic and thrombocytopenic. 08/17/2023 1:37 PM [facility]T [facility] Materials Received Received are 23 slide(s) and 2 blocks labeled [id number] along with a copy of the outside pathology report. [place] [address] . All original materials are returned to the referring institution, along with a copy of our final report. 08/17/2023 1:37 PM [facility] Microscopic Description No overt morphologic features of dyspoiesis are seen. 08/17/2023 1:37 PM CDT [facility] Pathologist Location at [facility] 08/17/2023 1:37 PM CDT [facility] Disclaimer The performance characteristics of all immunohistochemical and indirect immunofluorescence stains (if any) cited in this report were determined by the Histopathology Laboratory of [facility]. Some of these tests were developed by [...] pathologist. 08/17/2023 1:37 PM CDT [facility] PATH[facility] LAB Embedded Images 08/17/2023 1:37 PM CDT [facility] Pathology/Cytology BONE MARROW SPECIMEN / Unknown 08/15/2023 9:30 AM CDT 08/16/2023 2:54 PM CDT Miscellaneous samples (specimen) BONE MARROW SPECIMEN / Unknown 08/15/2023 9:30 AM CDT 08/16/2023 2:54 PM CDT Geovanni Perez MD LAB - PATHO LOGY/CYTOLOGY ORDERABLES [facility] PATHOLOGY LAB [address] [place] [address], [facility] [phone] documented in this encounter Visit Diagnoses Diagnosis Illness, unspecified documented in this encounter
--- OUTSIDE RECORDS SUMMARY | 2024-06-11 10:32 | XMS_ITS | Encounter Summary ---
Author Organization [email or web address] Address [address] [place] [address] Care Team Providers Care Activities Officer Name Role Phone Silvio Dutton MD Primary Care Provider [phone] Encounter Details Date Type Department Care Team (Late Contact Info) Description 06/10/2024 Orders Only [facility] Oncology and [facility] [address] [place] [address] Chet Willingham MD [address] [place] [address] Non-small cell lung cancer, unspecified laterality (CMS/HCC) Social History Tobacco Use Types Packs/Day Years Used Date Smoking Tobacco: Former Cigarettes 1.3 65.7 0 03/06/2023 - 12/05/2023 Smokeless Tobacco: Never Alcohol Use Standard Drinks/Week Comments Never 0 (1 standard drink = 0.6 oz pur e alcohol) Sex and Gender Information Value Date Recorded Sex Assigned at Not on file Legal Sex Male 12:10 PM CDT Gender Identity Not on file Sexual Orientation Not on file documented as of this encounter Plan of Treatment Upcoming Encounters Date Type Department Care Team (Late Contact Info) Description 07/05/2024 9:15 AM CDT Office Visit [facility] Oncology and Hematology [facility] [address] [place] [address] Chet Willingham MD [address] [place] [address] documented as of this encounter Visit Diagnoses Diagnosis Non-small cell lung cancer, unspecified laterality (CMS/HCC) documented in this encounter Care Teams Activities Officer Relationship Specialty Start Date End Date Silvio Dutton MD [address] [facility] [address] [place] [phone] PCP - General Internal Medicine 10/18/22 documented as of this encounter
--- OUTSIDE RECORDS SUMMARY | 2024-06-11 10:32 | XMS_ITS | Encounter Summary ---
Author Organization [facility] Address [address] [facility] [place] [address] Care Team Providers Care Mine Engineer Name Role Phone Unavailable Primary Care Provider Unavailabl e Encounter Details Date Type Department Care Team (Late st Contact Info) Description 08/15/2023 Lab Requisition [facility] - Pathology Lab [address] [place] [address] Geovanni Perez MD [address] [address] Anemia, unspecified Social History Tobacco Use [...] 9:30 AM CDT) Case Report Flow Cytometry Case: [id number] Authorizing Provider: Geovanni Perez Collected: 08/15/2023 09:30 AM MD Tevin Ordering Location: [facility] - Received: 08/15/2023 11:35 AM Pathology Lab Pathologist: Yessenia Thorne MD Specimen: Bone Marrow 08/15/2023 3:51 PM CDT [facility] Amended Report Inadvertently omitted was the final diagnosis. This was added. 08/15/2023 3:51 PM CDT [facility] Final Diagnosis Bone marrow, flow cytometry: - No clonal B-cell or increased blast population detected 08/15/2023 3:51 PM [facility] Amendment electronically signed by Yessenia Thorne MD on 08/15/2023 at 3:51 PM Flow Cytometry Interpretation Viability: 92% B-cells: polytypic, kappa:lambda ratio 2:1 T-cells: not increased Blasts: not increased, 0.5% of overall events are myeloblasts and 0.7% of overall events represent hematogones A bone marrow aspirate smear prepared from the flow cytometry specimen has been reviewed for training and quality manager purposes. 08/15/2023 3:51 PM [facility] Flow Cytometry Results Differential Result Comment Flow Cell Count /uL 36,600 Total Viability % 92.0 Lymphocytes % 8 Dim CD45 Region % 4 Monocytes % 5 Granulocytes % 83 08/15/2023 3:51 PM [facility] Reason for test Anemia, unspecified 285.9 08/15/2023 3:51 PM [facility] Client Specimen ID # [id number] 08/15/2023 3:51 PM [facility] Number of markers 19 were performed. A-2 Flow CD10 A-3 Flow CD13 A-5 Flow CD20 A-11 Flow CD2 A-13 Flow CD14 A-16 Flow CD117 A-17 Flow CD11b A-18 Flow CD11c A-1 Flow CD5 A-4 Flow CD19 A-6 Flow CD33 A-7 Flow CD34 A-8 Flow CD45 A-12 Flow CD7 A-14 Flow CD56 A-15 Flow CD64 A-9 [place]+CD19+ A-10 Lambda+CD19+ A-19 Flow HLA-DR 08/15/2023 3:51 PM [facility] Pathologist Location at [facility] 08/15/2023 3:51 PM [facility] Disclaimer Test performed at [facility], [address] [place] [address], [address]. *The established laboratory minimum viability is 70%. [...] complexity clinical testing. 08/15/2023 3:51 PM CDT [facility] Embedded Images 3:51 PM CDT [facility] Pathology/Cytolo gy BONE MARROW SPECIMEN / Unknown 08/15/2023 9:30 AM CDT 08/15/2023 11:35 AM CDT Geovanni Perez MD LAB - PATHO LOGY/CYTOLOGY ORDERABLES [facility] [address] [phone] documented in this encounter Visit Diagnoses Diagnosis Anemia, unspecified documented in this encounter
--- OUTSIDE RECORDS SUMMARY | 2024-06-11 10:32 | XMS_ITS | Clinical Summary ---
Author Organization [facility] Address [address] [place] [address] Care Team Providers Care Tactical Air Control Party Manager Name Role Phone Unavailable Primary Care Provider Unavailabl e Source Comments [facility],non-owned Affiliates and Associated Physician Practices is amultiple site organization consisting of ambulatory clinics and hospital sitesin [place], [place], [place] and [place]. This disclosure is being madepursuant to the Care Everywhere program and may not contain all information available regarding this patient. Last updated 17.[facility] [employer] Social History Tobacco Use Types Packs/Day Years Used Date Smoking Tobacco: Never Assessed Sex and Gender Information Value Date Recorded Sex Assigned at Not on file Gender Identity Not on file Sexual Orientation Not on file Plan of Treatment Health Maintenance Due Date Last Done Comments MEDICARE AWV 12 MONTHS 1940 DTAP/TDAP/TD VACCINES (1 - [...] to complete this topic MENINGOCOCCAL (Group B) VACC INE SHARED DECISION-MAKING Aged Out No longer eligibl e based on patient's age to complete this topic MENINGOCOCCAL GROUPS A/C/Y/W VACCINE Aged Out No longer eligible b ased on patient's age to complete this topic
[2024-06-11 10:40] LABS: Hemoglobin A1C 6.4 % (<5.7)
[2024-06-11 10:43] LABS: Platelet Estimate Adequate (Adequate)
[2024-06-11 10:44] LABS: Anisocytosis 1+; Hypochromasia 1+
[2024-06-11 10:45] LABS: Schistocytes None Seen
[2024-06-11 11:57] LABS: LDL Cholesterol Direct < 30 mg/dL
== END 2024-06-11 09:36 | disposition home or self-care (01) ==
PROVIDERS: PCP Internal Medicine; Visit Provider Internal Medicine
DX: E78.00 Pure hypercholesterolemia, unspecified (principal); E11.9 Type 2 diabetes mellitus without complications
CPT/HCPCS: 36415; 80053; 80061; 83036; 85025

== ENCOUNTER 2024-06-25 08:25 | Outpatient (CLI) | payer MEDICARE, SELFPAY ==
--- NOTE | ~2024-06-25 | CT_ITS ---
Clinical Indication: Lung cancer CT Scan of the Chest with Contrast: Technique: Contiguous sections were acquired throughout the chest after intravenous administration of 75 cc of Omnipaque 350. Dose reduction technique was used on this scan by utilizing automated exposu re control and iterative reconstruction technique. The dose-length product (DLP) was 273.41 mGy-cm. COMPARISON: 03/26/2024 Findings: There is no evidence of any significant mediastinal, hilar or axillary lymphadenopathy. There is no f illing defect in the pulmonary arterial tree to suggest pulmonary embolus. There is no evidence of ao rtic dissection or aneurysm. No pericardial effusion. Chronic right basilar pleural effusion is unchanged. There is probable chronic rounded atelectasis at the right lung base. There is additional consolidation at the left lung base and medial left lower l obe, which could reflect atelectasis and/or posttreatment change. Stable irregular nodular/consolidat ion in the right upper lobe, which could reflect chronic postinflammatory change or treated disease. There is advanced emphysema. Stable postoperative change near the right lung apex. Stable probable po stradiation change in the left perihilar region... Images through the upper abdomen reveal no abnormalities. Impression: No interval change. Stable areas of bilateral consolidation or nodularity, which could reflect posttr eatment changes, postinflammatory changes, and/or chronic atelectatic changes. Advanced emphysema. Chronic right pleural effusion is unchanged. Reviewed, dictated and finalized at [facility]. Impression: No interval change. Stable areas of bilateral consolidation or nodularity, whic h could reflect posttreatment changes, postinflammatory changes, and/or chronic atelectatic changes. Advanced emphysema. Chronic right pleural effusion is unchanged.
--- OUTSIDE RECORDS SUMMARY | 2024-06-25 08:42 | XMS_ITS | Clinical Summary ---
Author Organization [facility] Address [address] [place] [address] Phone Care Team Providers Care Jacquard Loom Weaver Name Role Phone Silvio Dutton MD Primary Care Provider [phone] Allergies Active Allergy Reactions Criticality Noted Date [...] daily. 240 mL 1 12/26/19 24 Active Active Problems Problem Noted Date Diagnosed Date Lung nodule 10/07/2022 Mediastinal lymphadenopathy 10/07/2022 Encounters Date Type Department Care Team Description 06/24/2024 Orders Only [facility] ([facility] Oncology and Hematology [facility] [address] [place] [phone] Chet Willingham MD Non-small cell lung cancer, unspecified laterality (CMS/HCC) 06/10/2024 Orders Only [facility] Oncology and Hematology - Jose [address] [place] [phone] Chet Willingham MD Non-small cell lung cancer, unspecified laterality (CMS/HCC) 05/27/2024 Orders Only [facility] Oncology and Hematology - Jose [address] [place] [address] Chet Willingham MD Non-small cell lung cancer, unspecified laterality (CMS/HCC) 05/22/2024 External Device Data STL ABSTRACTION Provider, Abstract 05/13/2024 Orders Only [facility] Oncology and Hematology - Jose [address] [place] [phone] Chet Willingham MD Non-small cell lung cancer, unspecified laterality (CMS/HCC) 05/11/2024 External Device Data STL ABSTRACTION Provider, Abstract 05/10/2024 External Device Data STL ABSTRACTION Provider, Abstract 05/06/2024 Telephone [facility] Oncology and Hematology - Jose [address] Chet Willingham MD Fever 04/29/2024 Orders Only [facility] Oncology and Hematology - Jose [address] Chet Willingham MD Non-small cell lung cancer, unspecified laterality (CMS/HCC) 04/24/2024 External Device Data STL ABSTRACTION Provider, Abstract 04/15/2024 Orders Only [facility] Oncology and Hematology - Jose [address] Chet Willingham MD Non-small cell lung cancer, unspecified laterality (CMS/HCC) 04/02/2024 9:45 AM METALLOGRAPHIC TECHNICIAN Office Visit [facility] Oncology and Hematology - Jose [address] [place] [phone] Chet Willingham MD Non-small cell lung cancer, unspecified laterality (CMS/HCC) (Primary Dx); Chronic anemia 04/02/2024 Orders Only [facility] Oncology and Hematology - Jose [address] [place] [phone] Chet Willingham MD 04/01/2024 Orders Only [facility] Oncology and Hematology - Jose [address] [place] [phone] Chet Willingham MD Non-small cell lung cancer, unspecified laterality (CMS/HCC) 03/28/2024 External Device Data STL ABSTRACTION Provider, Abstract 03/27/2024 Orders Only [facility] Oncology and Hematology - Jose [address] [place] [address] Chet Willingham MD from Last 3 Months Family History Relation [...] Comments Blood Pressure 127/58 04/02/2024 9:45 AM METALLOGRAPHIC TECHNICIAN Pulse 118 04/02/2024 9:45 AM METALLOGRAPHIC TECHNICIAN Temperature 36.1 C (96.9 F) 04/02/2024 9:45 AM METALLOGRAPHIC TECHNICIAN Respiratory Rate 15 04/02/2024 9:45 AM METALLOGRAPHIC TECHNICIAN Oxygen Saturation 93% 04/02/2024 9:45 AM METALLOGRAPHIC TECHNICIAN Inhaled Oxygen Concentration - - Weight 80.3 kg (177 lb) 04/02/2024 9:45 AM METALLOGRAPHIC TECHNICIAN Height 172.7 cm (5' 8 ) 01/23/2024 12:17 PM METALLOGRAPHIC TECHNICIAN Body Mass Index 26.91 01/23/2024 12:17 PM METALLOGRAPHIC TECHNICIAN Plan of Treatment Upcoming Encounters Date Type Department Care Team (Late st Contact Info) Description 07/05/2024 9:15 AM CDT Office Visit [facility] Oncology and Hematology Jose [address] [place] [address] Chet Willingham MD [address] [place] [address] Health Maintenance Due Date Last Done Comments DIABETES ANNUAL FOOT EXAM 01/21/1960 DIABETES ANNUAL RETINAL EXAM 01/21/1960 DIABETES HBA1C Q 6 MONTHS 01/21/1960 DIABETES MICROALBUMIN ANNUAL SCREEN 01/21/1960 LDL CHOLESTEROL ANNUAL 01/21/1960 DTAP/TDAP/TD VACCINES (1 - Tdap) 1961 ZOSTER VACCINE (1 of 2) 01/21/1992 RSV VACCINE (60+ or ) (1 - 1-dose 75+ series) 2017 PNEUMOCOCCAL VACCINE 50+ YEA RS (2 of 2 - PPSV23) 03/14/2017 01/17/2017 INFLUENZA VACCINE (#1) 2023 , 12/05/2017, 12/20/2016, Additional history exists Procedures Procedure Name Priority Date/Time Associated Diagnosis Comments BASIC METABOLIC PANEL Routine 04/02/2024 4:06 PM METALLOGRAPHIC TECHNICIAN COMPREHENSIVE METABOLIC PANEL Routine 04/02/2024 4:00 PM METALLOGRAPHIC TECHNICIAN from Last 3 Months Results * BASIC METABOLIC PANEL (04/02/2024 4:06 PM METALLOGRAPHIC TECHNICIAN) Blood us Chet Willingham MD CHEMISTRY ORDERABLES Final Resu lt * COMPREHENSIVE METABOLIC PANEL (04/02/2024 4:00 PM METALLOGRAPHIC TECHNICIAN) Blood us Chet Willingham MD CHEMISTRY ORDERABLES Final Resu lt from Last 3 Months Insurance MEDICARE PART A AND B [facility] MEDICARE PART A AND B BCBS SUPP Care Teams Jacquard Loom Weaver Relationship Specialty Start Date End Date Silvio Dutton MD [address] [phone] PCP - General Internal Medicine 10/18/22
--- OUTSIDE RECORDS SUMMARY | 2024-06-25 08:42 | XMS_ITS | Encounter Summary ---
Author Organization [facility] Address [address] [place] [address] Care Team Providers Care Pan Dumper Name Role Phone Silvio Dutton MD Primary Care Provider [phone] Encounter Details Date Type Department Care Team (Late Contact Info) Description 06/24/[address] [facility] Oncology and [facility] [address] [place] [address] Chet Willingham MD [address] [place] [address] Non-small cell lung cancer, unspecified laterality [...] 07/05/2024 9:15 AM CDT Office Visit [facility] Oncology and Hematology [facility] [address] [place] [address] Chet Willingham MD [address] [place] [address] documented as of this encounter Visit Diagnoses Diagnosis Non-small cell lung cancer, unspecified laterality (CMS/HCC) documented in this encounter Care Teams Pan Dumper Relationship Specialty Start Date End Date Silvio Dutton MD [address] [facility] [address] [place] [phone] PCP - General Internal Medicine 10/18/22 documented as of this encounter
--- OUTSIDE RECORDS SUMMARY | 2024-06-25 08:42 | XMS_ITS | Encounter Summary ---
Author Organization [facility] Address [address] [facility] [place] [address] Care Team Providers Care Physician Practice Administrator Name Role Phone Unavailable Primary Care Provider Unavailabl e Encounter Details Date Type Department Care Team (Late st Contact Info) Description 08/15/2023 Lab Requisition [facility] - Pathology Lab [address] [place] [address] Geovanni Perez MD [address] [address] Anemia, unspecified Social History Tobacco Use Types Packs/Day Years Used Date Smoking Tobacco: Never Assessed Sex and Gender Information Value Date Recorded Sex Assigned at Not on file Legal Sex Male 8:07 AM CDT Gender Identity Not on file Sexual [...] AM CDT) Case Report Flow Cytometry Case: [id number] Authorizing Provider: Geovanni Perez Collected: 08/15/2023 09:30 AM MD Tevin Ordering Location: [facility] - Received: 08/15/2023 11:35 AM Pathology Lab Pathologist: Yessenia Thorne MD Specimen: Bone Marrow 08/15/2023 3:51 PM CDT [facility] Amended Report Inadvertently omitted was the final diagnosis. This was added. 08/15/2023 3:51 PM [facility] Final Diagnosis Bone marrow, flow cytometry: - No clonal B-cell or increased blast population detected 08/15/2023 3:51 PM [facility] Amendment electronically signed by Yessenia Thorne MD on 08/15/2023 at 3:51 PM Flow Cytometry Interpretation Viability: 92% B-cells: polytypic, kappa:lambda ratio 2:1 T-cells: not increased Blasts: not increased, 0.5% of overall events are myeloblasts and 0.7% of overall events represent hematogones A bone marrow aspirate smear prepared from the flow cytometry specimen has been reviewed for quality assurance monitor purposes. 08/15/2023 3:51 PM [facility] Flow Cytometry Results Differential Result Comment Flow Cell Count /uL 36,600 Total Viability % 92.0 Lymphocytes % 8 Dim CD45 Region % 4 Monocytes % 5 Granulocytes % 83 08/15/2023 3:51 PM [facility] Reason for test Anemia, unspecified 285.9 08/15/2023 3:51 PM [facility] Client Specimen ID # [id number] 08/15/2023 3:51 PM [facility] Number of markers 19 were performed. A-2 Flow CD10 A-3 Flow CD13 A-5 Flow CD20 A-11 Flow CD2 A-13 Flow CD14 A-16 Flow CD117 A-17 Flow CD11b A-18 Flow CD11c A-1 Flow CD5 A-4 Flow CD19 A-6 Flow CD33 A-7 Flow CD34 A-8 Flow CD45 A-12 Flow CD7 A-14 Flow CD56 A-15 Flow CD64 A-9 [place]+CD19+ A-10 Lambda+CD19+ A-19 Flow HLA-DR 08/15/2023 3:51 PM [facility] Pathologist Location at [facility] 08/15/2023 3:51 PM [facility] Disclaimer Test performed at [facility], [address] [place] [address], [address]. *The established laboratory minimum viability is 70%. [...] complexity clinical testing. 08/15/2023 3:51 PM CDT [facility] Embedded Images 3:51 PM CDT [facility] Pathology/Cytolo gy BONE MARROW SPECIMEN / Unknown 08/15/2023 9:30 AM CDT 08/15/2023 11:35 AM CDT Geovanni Perez MD LAB - PATHO LOGY/CYTOLOGY ORDERABLES Edited Result - Final Performing Organization Address City/State/[facility] Co de Phone Number [facility] [address] [phone] documented in this encounter Visit Diagnoses Diagnosis Anemia, unspecified documented in this encounter
--- OUTSIDE RECORDS SUMMARY | 2024-06-25 08:42 | XMS_ITS | Encounter Summary ---
Author Organization [facility] Address [address] [place] [address] Care Team Providers Care Public Health Nutritionist Name Role Phone Unavailable Primary Care Provider Unavailabl e Encounter Details Date Type Department Care Team (Late st Contact Info) Description 08/16/2023 Lab Requisition [facility] - Pathology Lab [address] [place] [address] Geovanni Perez MD [address] [facility] [address] [place] [address] Illness, unspecified Social History Tobacco Use [...] Report Bone Marrow Patholog y Report Case: [id number] Authorizing Provider: Geovanni Perez Collected: 08/15/2023 09:30 AM MD Tevin Ordering Location: [facility] - Received: 08/16/2023 02:54 PM Pathology Lab Pathologist: Yessenia Thorne MD Specimens: A) - Bone Marrow Clot B) - Bone Marrow Core 08/17/2023 1:37 PM CDT [facility] Final Diagnosis Bone marrow, iliac crest, core biopsy, clot section, and aspirate: - Normocellular marrow for age with maturing trilineage hematopoiesis - No lymphoma, high-grade myeloid neoplasm, or metastatic disease seen 08/17/2023 1:37 PM [facility] Peripheral Smear Description Normocytic anemia, thrombocytopenia. Leukocyte number: normal. Granulocyte morphology: normal. Lymphocyte morphology: normal. Erythrocyte number: decreased. Erythrocyte morphology: normocytic. Anisopoikilocytosis: mild. Polychromasia: mild. Platelet number: decreased. Platelet morphology: normal. 08/17/2023 1:37 PM [facility] Bone Marrow Aspirate Differential count [...] stain): no ring sideroblasts. 08/17/2023 1:37 PM [facility] Bone Marrow Core Biopsy and [...] similar to core biopsy. 08/17/2023 1:37 PM [facility] Flow Cytometry Summary Flow cytometry identified no clonal B-cell or increased blast population ([id number]). 08/17/2023 1:37 PM [facility] Clinical History The patient is an 83-year-old male with history of T1bN2/3 unresectable non-small cell lung adenocarcinoma (diagnosed 09/06/2022) s/p radiation (completed 12/19/2022) and chemotherapy, currently on maintenance durvalumab. He presents for follow up with fatigue and found to be anemic and thrombocytopenic. 08/17/2023 1:37 PM T [facility] Materials Received Received are 23 slide(s) and 2 blocks labeled [id number] along with a copy of the outside pathology report. [place] [address] . All original materials are returned to the referring institution, along with a copy of our final report. 08/17/2023 1:37 PM CDT [facility] Microscopic Description No overt morphologic features of dyspoiesis are seen. 08/17/2023 1:37 PM CDT [facility] Pathologist Location at [facility] 08/17/2023 1:37 PM CDT [facility] Disclaimer The performance characteristics of all immunohistochemical and indirect immunofluorescence stains (if any) cited in this report were determined by the Histopathology Laboratory of [facility]. Some of these tests were developed by [...] the attending (teaching) pathologist. 08/17/2023 1:37 PM T [facility] Embedded Images 08/17/2023 1:37 PM CDT [facility] Pathology/Cytology BONE MARROW SPECIMEN / Unknown 08/15/2023 9:30 AM CDT 08/16/2023 2:54 PM CDT Miscellaneous samples (specimen) BONE MARROW SPECIMEN / Unknown 08/15/2023 9:30 AM CDT 08/16/2023 2:54 PM CDT us Geovanni Perez MD LAB - PATHOLOGY/CYT OLOGY ORDERABLES Final Result [facility] [address] [place], [place] [id number] [place] [address] documented in this encounter Visit Diagnoses Diagnosis Illness, unspecified documented in this encounter
--- OUTSIDE RECORDS SUMMARY | 2024-06-25 08:42 | XMS_ITS | Continuity of Care Document ---
Author Organization [facility] Address [address] [place] [address] [address] [place] [address] Phone Care Team Providers Care Sign Language Instructor Name Role Phone Shultz OD, Remington Unavailable Unavailable Advance Directives Directive Yes / No Effective Date File Name No Information Encounters Encounter Description Practice Location Reason(s) For Visit Diagnoses Date Provider Providers Copied on Encounter [facility], [address], [place], [place], [id number], [place] tel:[phone] [facility] No Information Dec-2 3-200 5 Shultz OD Remington. [address] , [address], [place], [address], [place]. tel:[phone] Referring Provider: Silvio Dutton, [address] [place] [address], [facility]. tel:[phone] Family History Family Member Type Diagnosis Age At Onset No Information Payers Payer name Insurance type Covered green party ID Authoriza tijed(s) [employer] Plan CI [id number] Social History Type Description Quantity Date Captured [...]
--- OUTSIDE RECORDS SUMMARY | 2024-06-25 08:42 | XMS_ITS | Clinical Summary ---
Author Organization [facility] Address [address] [place] [address] Care Team Providers Care Field Recruiter Name Role Phone Unavailable Primary Care Provider [...] Td Vaccines ( 1 - Tdap) 1961 Pneumococcal Vaccine: 50+ Ye ars (1 of 1 - PCV) 01/21/1992 Zoster Vaccines (1 of 2) 01/21/1992 RSV Immunization or 60+ Years (1 - [...]
--- OUTSIDE RECORDS SUMMARY | 2024-06-25 08:42 | XMS_ITS | CONTINUITY OF CARE DOCUMENT ---
Author Name chloe corona Address Unknown Organization [facility] Address [address] [facility] [address] [place] [address] Phone [phone] Care Team Providers Care Locker Plant Attendant Name Role Phone chloe corona Unavailable Unavailable
--- OUTSIDE RECORDS SUMMARY | 2024-06-25 08:42 | XMS_ITS | Clinical Summary ---
Author Organization [facility] Address [address] [place] [address] Care Team Providers Care Faa Certified Powerplant Mechanic Name Role Phone Unavailable Primary Care Provider Unavailabl e Source Comments [facility],non-owned Affiliates and Associated Physician Practices is amultiple site organization consisting of ambulatory clinics and hospital sitesin [place], [place], [place] and [place]. This disclosure is being madepursuant to the Care Everywhere program and may not contain all information available regarding this patient. Last updated 17.[facility] [employer] Social History Tobacco Use Types Packs/Day Years [...] VACCINE ( - 2023-2 5 season) 2023 DEPRESSION SCREENING 03/06/2024 INFLUENZA VACCINE (Season Ended) 2024 HEPATITIS B VACCINE Aged Out No longe [...] on patient's age to complete this topic Insurance MEDICARE [facility] Address: [address] [place] [address]
== END 2024-06-25 08:26 | disposition home or self-care (01) ==
PROVIDERS: PCP Internal Medicine; Visit Provider Internal Medicine Hematology & Oncology
DX: J43.9 Emphysema, unspecified (principal); J90 Pleural effusion, not elsewhere classified; C34.90 Malignant neoplasm of unspecified part of unspecified bronchus or lung
CPT/HCPCS: 71260; Q9967

== ENCOUNTER 2024-10-22 10:31 | Outpatient (CLI) | payer MEDICARE, SELFPAY ==
--- NOTE | ~2024-10-22 | CT_ITS ---
EXAMINATION: CT diagnostic chest w con DATE: 10/22/2024 11:01 INDICATION: Lung cancer. Follow-up TECHNIQUE: Computed tomography (CT) of the chest was performed without intravenous contrast. The dose-length product was 271.09 mGy-cm. COMPARISON: CT chest 06/25/2024 and 03/26/2024 FINDINGS: No enlarged mediastinal or hilar lymph nodes. There are a few nonenlarged mediastinal and hilar lymph nodes similar to the prior study. Heart is unenlarged. There are coronary artery calcifications. Stable too small to characterize low-attenuation lesion in the right lobe of the liver. Stable too small to characterize low-attenuation lesion in the visualized left kidney. Thoracic aorta is partially calcified but is not aneurysmal. Grossly stable bronchiectasis Grossly stable small right-sided pleural effusion. Stable centrilobular emphysema. Grossly stable opacities scattered throughout left lung as compared to the study from 06/25/2024. Interval increase in the size of the consolidation in the right mid lung which extend from the right hilum to the pleura which currently measures 4.4 x 3.5 cm, previously grossly measured 1.1 x 1.3 cm. Differential includes postobstructive atelectasis, pneumonia or malignancy. A PET/CT is recommended. Bones appear osteopenic. Multilevel degenerative change in the visualized spine. IMPRESSION: 1. Interval increase in the size of the consolidation in the right mid lung which extend from the right hilum to the pleura which currently measures 4.4 x 3.5 cm, previously grossly measured 1.1 x 1.3 cm. Differential includes postobstructive atelectasis, pneumonia or malignancy. A PET/CT is recommended. 2.Grossly stable small right-sided pleural effusion. 3.Grossly stable opacities scattered throughout left lung as compared to the study from 06/25/2024. Reviewed, dictated and finalized at location A. IMPRESSION: 1. Interval increase in the size of the consolidation in the right mid lung whi ch extend from the right hilum to the pleura which currently measures 4.4 x 3.5 cm, previously grossly measured 1.1 x 1.3 cm. Differential includes postobstru ctive atelectasis, pneumonia or malignancy. A PET/CT is recommended. 2.Grossly stable small right-sided pleural effusion. 3.Grossly stable opacities scattered throughout left lung as compared to the [facility] from 06/25/2024.
[2024-10-22 10:56] LABS: Estimated Glomerular Filt Rate 49
--- OUTSIDE RECORDS SUMMARY | 2024-10-22 11:02 | XMS_ITS | Clinical Summary ---
Author Organization [facility] Address [address] [place] [address] Care Team Providers Care Degreasing Solution Mixer Name Role Phone Unavailable Primary Care Provider [...]
--- OUTSIDE RECORDS SUMMARY | 2024-10-22 11:02 | XMS_ITS | Encounter Summary ---
Author Organization [facility] Address [address] [facility] [place] [address] Care Team Providers Care Assistant Professor Of Biochemistry Name Role Phone Unavailable Primary Care Provider Unavailabl e Encounter Details Date Type Department Care Team (Late st Contact Info) Description 08/15/2023 Lab Requisition [facility] - Pathology Lab [address] [place] [address] Geovanni Perez MD [address] [address] Anemia, unspecified Social History Tobacco [...] AM CDT) Case Report Flow Cytometry Case: [id number] Authorizing Provider: Geovanni Perez Collected: 08/15/2023 09:30 AM MD Tevin Ordering Location: [facility] - Received: 08/15/2023 11:35 AM Pathology Lab Pathologist: Yessenia Thorne MD Specimen: Bone Marrow 08/15/2023 3:51 PM CDT [facility] Amended Report Inadvertently omitted was the final diagnosis. This was added. 08/15/2023 3:51 PM CDT [facility] Final Diagnosis Bone marrow, flow cytometry: - No clonal B-cell or increased blast population detected 08/15/2023 3:51 PM T [facility] Amendment electronically signed by Yessenia Thorne MD on 08/15/2023 at 1551 CDT at 1513 CDT Flow Cytometry Interpretation Viability: 92% B-cells: polytypic, kappa:lambda ratio 2:1 T-cells: not increased Blasts: not increased, 0.5% of overall events are myeloblasts and 0.7% of overall events represent hematogones A bone marrow aspirate smear prepared from the flow cytometry specimen has been reviewed for quality assurance supervisor chassis purposes. 08/15/2023 3:51 PM [facility] Flow Cytometry Results Differential Result Comment Flow Cell Count /uL 36,600 Total Viability % 92.0 Lymphocytes % 8 Dim CD45 Region % 4 Monocytes % 5 Granulocytes % 83 08/15/2023 3:51 PM CDT [facility] Reason for test Anemia, unspecified 285.9 08/15/2023 3:51 PM [facility] Client Specimen ID # [id number] 08/15/2023 3:51 PM [facility] Number of markers 19 were performed. A-2 Flow CD10 A-3 Flow CD13 A-5 Flow CD20 A-11 Flow CD2 A-13 Flow CD14 A-16 Flow CD117 A-17 Flow CD11b A-18 Flow CD11c A-1 Flow CD5 A-4 Flow CD19 A-6 Flow CD33 A-7 Flow CD34 A-8 Flow CD45 A-12 Flow CD7 A-14 Flow CD56 A-15 Flow CD64 A-9 [place]+CD19+ A-10 Lambda+CD19+ A-19 Flow HLA-DR 08/15/2023 3:51 PM CDT [facility] Pathologist Location at [facility] 08/15/2023 3:51 PM [facility] Disclaimer Test performed at [facility], [address] [place] [address], [address]. *The established laboratory minimum viability is 70%. [...] complexity clinical testing. 08/15/2023 3:51 PM CDT [facility] Embedded Images 3:51 PM CDT [facility] Pathology/Cytolo gy BONE MARROW SPECIMEN / Unknown 08/15/2023 9:30 AM CDT 08/15/2023 11:35 AM CDT Geovanni Perez MD LAB - PATHO LOGY/CYTOLOGY ORDERABLES Edited Result - Final Performing Organization Address City/State/[facility] Co de Phone Number [facility] [address] [phone] documented in this encounter Visit Diagnoses Diagnosis Anemia, unspecified documented in this encounter
--- OUTSIDE RECORDS SUMMARY | 2024-10-22 11:02 | XMS_ITS | Clinical Summary ---
Author Organization [facility] Address [address] [place] [address] Phone Care Team Providers Care French Translator Name Role Phone Silvio Dutton MD Primary Care Provider [phone] Allergies Active Allergy Reactions Criticality Noted Date [...] Encounters Date Type Department Care Team Description 10/16/2024 Orders Only [facility] Oncology and Hematology [facility] [address] [place] [address] Chet Willingham MD Non-small cell lung cancer, unspecified laterality (CMS/HCC) (Primary Dx) 10/14/2024 Orders Only [facility] Oncology and Hematology [address] [place] [phone] Chet Willingham MD Non-small cell lung cancer, unspecified laterality (CMS/HCC) 10/09/2024 External Device Data STL ABSTRACTION Provider, Abstract 09/30/2024 Orders Only [facility] Oncology and Hematology [address] [place] [address] Chet Willingham MD Non-small cell lung cancer, unspecified laterality (CMS/HCC) 09/18/2024 External Device Data STL ABSTRACTION Provider, Abstract 09/18/2024 External Device Data STL ABSTRACTION Provider, Abstract 09/18/2024 External Device Data STL ABSTRACTION Provider, Abstract 09/16/2024 Orders Only [facility] Oncology and Hematology [facility] [address] [place] [phone] Chet Willingham MD Non-small cell lung cancer, unspecified laterality (CMS/HCC) 09/02/2024 Orders Only [facility] Oncology and Hematology - Jose [address] [place] [phone] Chet Willingham MD Non-small cell lung cancer, unspecified laterality (CMS/HCC) 08/20/2024 External Device Data STL ABSTRACTION Provider, Abstract 08/19/2024 Orders Only [facility] Oncology and Hematology - Jose [address] [place] [address] Chet Willingham MD Non-small cell lung cancer, unspecified laterality (CMS/HCC) 08/05/2024 Orders Only [facility] Oncology and Hematology - Jose [address] [place] [address] Chet Willingham MD Non-small cell lung cancer, unspecified laterality (CMS/HCC) 07/30/2024 External Device Data STL ABSTRACTION Provider, Abstract 07/30/2024 External Device Data STL ABSTRACTION Provider, Abstract 07/24/2024 External Device Data STL ABSTRACTION Provider, Abstract 07/23/2024 External Device Data STL ABSTRACTION Provider, Abstract 07/22/2024 Orders Only [facility] Oncology and Hematology - Jose [address] [place] [address] Chet Willingham MD Non-small cell [...] Comments Blood Pressure 127/58 04/02/2024 9:45 AM POWER PLANT OPERATOR APPRENTICE Pulse 118 04/02/2024 9:45 AM POWER PLANT OPERATOR APPRENTICE Temperature 36.1 C (96.9 F) 04/02/2024 9:45 AM POWER PLANT OPERATOR APPRENTICE Respiratory Rate 15 04/02/2024 9:45 AM POWER PLANT OPERATOR APPRENTICE Oxygen Saturation 93% 04/02/2024 9:45 AM POWER PLANT OPERATOR APPRENTICE Inhaled Oxygen Concentration - - Weight 80.3 kg (177 lb) 04/02/2024 9:45 AM POWER PLANT OPERATOR APPRENTICE Height 172.7 cm (5' 8) 01/23/2024 12:17 PM POWER PLANT OPERATOR APPRENTICE Body Mass Index 26.91 01/23/2024 12:17 PM POWER PLANT OPERATOR APPRENTICE Plan of Treatment Upcoming Encounters Date Type Department Care Team (Late st Contact Info) Description 11/18/2024 2:00 PM CDT Office Visit [facility] Oncology and Hematology - [place] [address] [place] [address] [facility] [address] [place] [address] Chet Willingham MD [address] [facility] [address] [place] [address] Health Maintenance Due Date Last Done Comments DTAP/TDAP/TD VACCINES (1 - Tdap) 1959 PNEUMOCOCCAL VACCINE 50+ YEARS (1 of 1 - PCV) 01/20/19 92 ZOSTER VACCINE (1 of 2) 01/21/1992 RSV VACCINE (60+ or ) (1 - 1-dose 75+ series) 2017 INFLUENZA VACCINE (#1) 2024 Insurance MEDICARE PART A AND B [facility] SUPP MEDICARE PART A AND B [facility] SUPP Care Teams French Translator Relationship Specialty Start Date End Date Silvio Dutton MD [address] [facility] [address] [place] [address] PCP - General Internal Medicine 10/18/22
--- OUTSIDE RECORDS SUMMARY | 2024-10-22 11:02 | XMS_ITS | Clinical Summary ---
Author Organization [facility] Address [address] [place] [address] Care Team Providers Care Veterinary Nurse Name Role Phone Unavailable Primary Care Provider Unavailabl e Source Comments [facility],non-owned Affiliates and Associated Physician Practices is amultiple site organization consisting of ambulatory clinics and hospital sitesin [place], [place], [place] and [place]. This disclosure is being madepursuant to the Care Everywhere program and may not contain all information available regarding this patient. Last updated 17.[facility] [employer] Social History Tobacco Use Types Packs/Day Years [...] season) 2023 DEPRESSION SCREENING 03/06/2024 INFLUENZA VACCINE (#1) 2024 HEPATITIS B VACCINE Aged Out No [...] age to complete this topic Insurance MEDICARE [facility]
--- OUTSIDE RECORDS SUMMARY | 2024-10-22 11:02 | XMS_ITS | Encounter Summary ---
Author Organization [facility] Address [address] [facility] [place] [address] Care Team Providers Care Asp Net Developer Name Role Phone Unavailable Primary Care Provider Unavailabl e Encounter Details Date Type Department Care Team (Late st Contact Info) Description 08/16/2023 Lab Requisition [facility] - Pathology Lab [address] [place] [address] Geovanni Perez MD [address] [facility] [address] [place] [address] Illness, unspecified Social History Tobacco Use [...] Report Bone Marrow Patholog y Report Case: [id number] Authorizing Provider: Geovanni Perez Collected: 08/15/2023 09:30 AM MD Tevin Ordering Location: [facility] - Received: 08/16/2023 02:54 PM [...] or metastatic disease seen 08/17/2023 1:37 PM [facility] PATHOLOG[facility] LAB at 1337 CDT Peripheral Smear Description Normocytic anemia, thrombocytopenia. Leukocyte number: normal. Granulocyte morphology: normal. Lymphocyte morphology: normal. Erythrocyte number: decreased. Erythrocyte morphology: normocytic. Anisopoikilocytosis: mild. Polychromasia: mild. Platelet number: decreased. Platelet morphology: normal. 08/17/2023 1:37 PM [facility] Bone Marrow Aspirate [...] stain): no ring sideroblasts. 08/17/2023 1:37 PM [facility] Bone Marrow Core [...] similar to core biopsy. 08/17/2023 1:37 PM [facility] Flow Cytometry Summary Flow cytometry identified no clonal B-cell or increased blast population ([id number]). 08/17/2023 1:37 PM [facility] Clinical History The patient is an 83-year-old male with history of T1bN2/3 unresectable non-small cell lung adenocarcinoma (diagnosed 09/06/2022) s/p radiation (completed 12/19/2022) and chemotherapy, currently on maintenance durvalumab. He presents for follow up with fatigue and found to be anemic and thrombocytopenic. 08/17/2023 1:37 PM T [facility] PATH[facility] Materials Received Received are 23 slide(s) and 2 blocks labeled [id number] along with a copy of the outside pathology report. [place] [address] . All original materials are returned to the referring institution, along with a copy of our final report. 08/17/2023 1:37 PM CDT [facility] PATHOLOGY LAB Microscopic Description No overt morphologic features of dyspoiesis are seen. 08/17/2023 1:37 PM CDT [facility] PATHOLOGY LAB Pathologist Location at [facility] 08/17/2023 1:37 PM CDT [facility] Disclaimer The performance characteristics of all immunohistochemical and indirect immunofluorescence stains (if any) cited in this report were determined by the Histopathology Laboratory of [facility]. Some of these tests [...] attending (teaching) pathologist. 08/17/2023 1:37 PM T [facility] PATH[facility] Embedded Images 08/17/2023 1:37 PM CDT [facility] LAB Pathology/Cytology BONE MARROW SPECIMEN / Unknown 08/15/2023 9:30 AM CDT 08/16/2023 2:54 PM CDT Miscellaneous samples (specimen) BONE MARROW SPECIMEN / Unknown 08/15/2023 9:30 AM CDT 08/16/2023 2:54 PM CDT us Geovanni Perez MD LAB - PATHOLOGY/CYT OLOGY ORDERABLES Final Result [facility] [address] [place], [place] [id number] [place] [address] documented in this encounter Visit Diagnoses Diagnosis Illness, unspecified documented in this encounter
== END 2024-10-22 10:32 | disposition home or self-care (01) ==
PROVIDERS: PCP Internal Medicine; Visit Provider Internal Medicine Hematology & Oncology
DX: J16.8 Pneumonia due to other specified infectious organisms (principal); J91.8 Pleural effusion in other conditions classified elsewhere; C34.90 Malignant neoplasm of unspecified part of unspecified bronchus or lung
CPT/HCPCS: 71260; Q9967

== ENCOUNTER 2024-10-28 11:58 | Inpatient (IN) | payer MEDICARE, SELFPAY ==
--- OUTSIDE RECORDS SUMMARY | 2005-02-25 04:15 | XMS_ITS | Continuity of Care Document ---
Author Organization [facility] Address [id number] [place] [address] [address] [place] [address] Phone Care Team Providers Care Cap Jewel Plate Assembler Name Role Phone Shultz OD, Remington Unavailable Unavailable Advance Directives Directive Yes / No Effective Date File Name No Information Encounters Encounter Description Practice Location Reason(s) For Visit Diagnoses Date Provider Providers Copied on Encounter [facility], [address], [place], [place], [id number], [place] tel:[phone] [facility] No Information Dec-2 3-200 5 Shultz OD Remington. [address] , [address], [place], [address], [place]. tel:[phone] Referring Provider: Silvio Dutton, [address] [place] [address], [facility]. tel:[phone] Family History Family Member Type Diagnosis Age At Onset No Information Payers Payer name Insurance type Covered democrat ID Authoriza tijed(s) [employer] Plan CI [id number] Social History Type Description Quantity Date Captured Comments Sex Male Smoking Status No Information Chief Complaint And Reason For Visit No Information Reason For Referral Reason For Referral No Information History Of Present Illness Encounter Date Complaint History Of Prese nt Illness No Information Functional Status Date Functional Assessmen t No Information Instructions Date Instruction Additional Infor mation No Information Assessments Type Assessment Date No Information Patient Care Teams Name Effective Dates (start - stop) Status Members No Information
--- OUTSIDE RECORDS SUMMARY | 2005-02-25 04:15 | XMS_ITS | Continuity of Care Document ---
Author Organization [facility] Address [address] [place] [address] [address] [place] [address] Phone Care Team Providers Care Civil Project Engineer Name Role Phone Shultz OD, Remington Unavailable Unavailable Advance Directives Directive Yes / No Effective Date File Name No Information Encounters Encounter Description Practice Location Reason(s) For Visit Diagnoses Date Provider Providers Copied on Encounter [facility], [address], [place], [place], [id number], [place] tel:[phone] [facility] No Information Dec-2 3-200 5 Shultz OD Remington. [address] [facility] , [address], [place], [address], [place]. tel:[phone] Referring Provider: Silvio Dutton, [address] [place] [address], [facility]. tel:[phone] Family History Family Member Type Diagnosis Age At Onset No Information Payers Payer name Insurance type Covered libertarian ID Authoriza tijed(s) [employer] Plan CI [id number] Social History Type Description Quantity Date Captured [...]
[2024-10-28] VITALS (22 sets, daily range): BP systolic 93–136; BP diastolic 52–78; PULSE 69–117; RESP 16–38; TEMP 36.2–36.8; O2SAT 85–100; BMI 24.0
--- NOTE | ~2024-10-28 | XR_ITS ---
XR chest 1V portable 10/30/2024 21:29 Indication: Shortness of breath Procedure: AP portable chest Comparison: Comparison to multiple prior studies sequentially, with oldest reviewed study dated 01/01/2024. Findings: Right IJ portacatheter tip near the cavoatrial junction. There is extensive right-sided airspace disease, most confluent in the right upper lobe. Small right pleural effusion. There is a left perihilar scarring. There is apical pleural thickening. Impression: 1: Asymmetric right-sided consolidation, consistent with pneumonia. 2: Small right pleural effusion. Reviewed, dictated and finalized at location O. Impression: 1: Asymmetric right-sided consolidation, consistent with pneumonia. 2: Small right pleural effusion.
--- NOTE | ~2024-10-28 | XR_ITS ---
XR chest 2V 10/28/2024 13:13 Indication: Shortness of breath Procedure: AP and lateral views of the chest Comparison: 01/04/2024 Findings: Port catheter tip in the SVC near the cavoatrial junction. Cardiomediastinal silhouette within normal limits. Interval development of diffuse right-sided airspace disease. There is left basilar atelectasis/scarring. Small right pleural effusion. No pneumothorax. Impression: 1: Development of diffuse right-sided airspace disease which may represent pneumonia or less likely asymmetric edema. 2: Small right pleural effusion. Reviewed, dictated and finalized at location O. Impression: 1: Development of diffuse right-sided airspace disease which may represent pneu monia or less likely asymmetric edema. 2: Small right pleural effusion.
--- NOTE | 2024-10-28 12:13 | ECG_ITS ---
Test Date: 2024-10-28 12:17:26 Measurements Intervals [place] Rate: 112 P: 60 MD: 202 QRS: 54 QRSD: 103 T: 59 QT: 334 QTc: 456 Interpretive Statements SINUS TACHYCARDIA LOW QRS VOLTAGE IN PRECORDIAL LEADS INCOMPLETE RIGHT BUNDLE BRANCH BLOCK BASELINE ARTIFACT- I, II, AVR ABNORMAL ECG Compared to ECG 01/01/2024 08:47:32 IHEART RATE HAS DECREASED Electronically Signed On 10-28-2024 12:59:39 CDT by Camilo Resendiz D.O.
--- OUTSIDE RECORDS SUMMARY | 2024-10-28 12:22 | XMS_ITS | Clinical Summary ---
Author Organization [facility] Address [address] [place] [address] Care Team Providers Care Glass Mechanic Name Role Phone Unavailable Primary Care [...]
--- OUTSIDE RECORDS SUMMARY | 2024-10-28 12:22 | XMS_ITS | Clinical Summary ---
Author Organization [facility] Address [address] [place] [address] Phone Care Team Providers Care Carpentry Supervisor Name Role Phone Silvio Dutton MD Primary Care Provider [phone] Allergies Active Allergy Reactions Criticality Noted Date [...] Encounters Date Type Department Care Team Description 10/28/2024 Telephone [facility] Oncology and Hematology - Jose [address] [place] [address] Chet Willingham MD Follow up 10/28/2024 Orders Only [facility] Oncology and Hematology - Jose [address] [place] [address] Chet Willingham MD Non-small cell lung cancer, unspecified laterality (CMS/HCC) 10/24/2024 Orders Only [facility] Oncology and Hematology - Jose [address] [place] [address] Chet Willingham MD 10/23/2024 External Device Data STL ABSTRACTION Provider, Abstract 10/22/2024 External Device Data STL ABSTRACTION Provider, Abstract 10/16/2024 Orders Only [facility] Oncology and Hematology - Jose [address] [place] [phone] Chet Willingham MD Non-small cell lung cancer, unspecified laterality (CMS/HCC) (Primary Dx) 10/14/2024 Orders Only [facility] Oncology and Hematology - Jose [address] [place] [phone] Chet Willingham MD Non-small cell lung cancer, unspecified laterality (CMS/HCC) 10/09/2024 External Device Data STL ABSTRACTION Provider, Abstract 09/30/2024 Orders Only [facility] Oncology and Hematology - Jose [address] [place] [address] Chet Willingham MD Non-small cell lung cancer, unspecified laterality (CMS/HCC) 09/18/2024 External Device Data STL ABSTRACTION Provider, Abstract 09/18/2024 External Device Data STL ABSTRACTION Provider, Abstract 09/18/2024 External Device Data STL ABSTRACTION Provider, Abstract 09/16/2024 Orders Only [facility] Oncology and Hematology - Jose [address] [place] [phone] Chet Willingham MD Non-small cell lung cancer, unspecified laterality (CMS/HCC) 09/02/2024 Orders Only [facility] Oncology and Hematology - Jose [address] [place] [phone] Chet Willingham MD Non-small cell lung cancer, unspecified laterality (CMS/HCC) 08/20/2024 External Device Data STL ABSTRACTION Provider, Abstract 08/19/2024 Orders Only [facility] Oncology and Hematology - Jose [address] [place] [phone] Chet Willingham MD Non-small cell lung cancer, unspecified laterality (CMS/HCC) 08/05/2024 Orders Only [facility] Oncology and Hematology - [address] [place] [address] Chet Willingham MD Non-small cell lung cancer, unspecified laterality (CMS/HCC) 07/30/2024 External Device Data STL ABSTRACTION Provider, Abstract 07/30/2024 External Device Data STL ABSTRACTION Provider, Abstract from Last 3 Months Family History Relation [...] Comments Blood Pressure 127/58 04/02/2024 9:45 AM GAS ENGINEER Pulse 118 04/02/2024 9:45 AM GAS ENGINEER Temperature 36.1 C (96.9 F) 04/02/2024 9:45 AM GAS ENGINEER Respiratory Rate 15 04/02/2024 9:45 AM GAS ENGINEER Oxygen Saturation 93% 04/02/2024 9:45 AM GAS ENGINEER Inhaled Oxygen Concentration - - Weight 80.3 kg (177 lb) 04/02/2024 9:45 AM GAS ENGINEER Height 172.7 cm (5' 8) 01/23/2024 12:17 PM GAS ENGINEER Body Mass Index 26.91 01/23/2024 12:17 PM GAS ENGINEER Plan of Treatment Upcoming Encounters Date Type Department Care Team (Late st Contact Info) Description 11/18/2024 2:00 PM CDT Office Visit [facility] Oncology and Hematology - Jose [address] [facility] [address] [place] [address] Chet Willingham MD [address] [facility] [address] [place] [address] Health Maintenance Due Date Last Done Comments DTAP/TDAP/TD VACCINES (1 - Tdap) 1959 Traditional Medicare (ACO) Annual Wellness Visit 01/20 PNEUMOCOCCAL VACCINE 50+ YEARS (1 of 1 - PCV) 01/20/19 92 ZOSTER VACCINE (1 of 2) 01/21/1992 RSV VACCINE (60+ or ) (1 - 1-dose 75+ series) 2017 INFLUENZA VACCINE (#1) 2024 Procedures Procedure Name Priority Date/Time Associated Diagnosis Comments CT CHEST W CONTRAST Routine 10/22/2024 8:04 AM CDT from Last 3 Months Results * CT CHEST W CONTRAST (10/22/2024 8:04 AM CDT) Anatomical Region Laterality Modality Chest Computed Tomogra phy us Chet Willingham MD CT ORDERABLES Final Result from Last 3 Months Insurance MEDICARE PART A AND B [facility] MEDICARE PART A AND B BCBS SUPP Care Teams Carpentry Supervisor Relationship Specialty Start Date End Date Silvio Dutton MD [address] [facility] [address] [place] [address] PCP - General Internal Medicine 10/18/22
--- OUTSIDE RECORDS SUMMARY | 2024-10-28 12:22 | XMS_ITS | Encounter Summary ---
Author Organization [facility] [employer] [facility] Address [address] [place] [address] Care Team Providers Care Truckload Checker Name Role Phone Silvio Dutton MD Primary Care Provider [phone] Encounter Details Date Type Department Care Team (Late Contact Info) Description 10/28/2024 Orders Only [facility] Oncology and [facility] [address] [place] [address] Chet Willingham MD [address] [place] [address] Non-small cell lung cancer, unspecified laterality [...] Department Care Team (Late Contact Info) Description 11/18/2024 2:00 PM CDT Office Visit [facility] Oncology and Hematology [facility] [address] [place] [address] Chet Willingham MD [address] [place] [address] documented as of this encounter Visit Diagnoses Diagnosis Non-small cell lung cancer, unspecified laterality (CMS/HCC) documented in this encounter Care Teams Truckload Checker Relationship Specialty Start Date End Date Silvio Dutton MD [address] [facility] [address] [place] [phone] PCP - General Internal Medicine 10/18/22 documented as of this encounter
--- OUTSIDE RECORDS SUMMARY | 2024-10-28 12:22 | XMS_ITS | Encounter Summary ---
Author Organization [facility] Address [address] [place] [address] Care Team Providers Care External Relations Director Name Role Phone Unavailable Primary Care Provider Unavailabl e Encounter Details Date Type Department Care Team (Late st Contact Info) Description 08/16/2023 Lab Requisition [facility] - Pathology Lab [address] [place] [address] Geovanni Perez MD [address] [facility] [address] [place] [address] Illness, unspecified Social History Tobacco Use [...] Report Bone Marrow Patholog y Report Case: [id number] Authorizing Provider: Geovanni Perez Collected: 08/15/2023 09:30 AM MD Tevin Ordering Location: [facility] - Received: 08/16/2023 [...] or metastatic disease seen 08/17/2023 1:37 PM [facility] at 1337 CDT Peripheral Smear Description Normocytic anemia, thrombocytopenia. Leukocyte number: normal. Granulocyte morphology: normal. Lymphocyte morphology: normal. Erythrocyte number: decreased. Erythrocyte morphology: normocytic. Anisopoikilocytosis: mild. Polychromasia: mild. Platelet number: decreased. Platelet morphology: normal. 08/17/2023 1:37 PM [facility] Bone Marrow Aspirate Differential [...] stain): no ring sideroblasts. 08/17/2023 1:37 PM [facility] Bone Marrow Core Biopsy [...] similar to core biopsy. 08/17/2023 1:37 PM [facility] Flow Cytometry Summary Flow cytometry identified no clonal B-cell or increased blast population ([id number]). 08/17/2023 1:37 PM [facility] Clinical History The patient is an 83-year-old male with history of T1bN2/3 unresectable non-small cell lung adenocarcinoma (diagnosed 09/06/2022) s/p radiation (completed 12/19/2022) and chemotherapy, currently on maintenance durvalumab. He presents for follow up with fatigue and found to be anemic and thrombocytopenic. 08/17/2023 1:37 PM T [facility] Materials Received Received are 23 slide(s) and 2 blocks labeled [id number] along with a copy of the outside pathology report. [place] [address] . All original materials are returned to the referring institution, along with a copy of our final report. 08/17/2023 1:37 PM CDT U PATHOLOGY LAB Microscopic Description No overt morphologic features of dyspoiesis are seen. 08/17/2023 1:37 PM CDT U PATHOLOGY LAB Pathologist Location at [facility] 08/17/2023 1:37 PM CDT [facility] Disclaimer The performance characteristics of all immunohistochemical and indirect immunofluorescence stains (if any) cited in this report were determined by the Histopathology Laboratory of [facility]. Some of these tests [...] (teaching) pathologist. 08/17/2023 1:37 PM T [facility] Embedded Images 08/17/2023 1:37 PM CDT [facility] Pathology/Cytology BONE MARROW SPECIMEN / Unknown 08/15/2023 9:30 AM CDT 08/16/2023 2:54 PM CDT Miscellaneous samples (specimen) BONE MARROW SPECIMEN / Unknown 08/15/2023 9:30 AM CDT 08/16/2023 2:54 PM CDT us Geovanni Perez MD LAB - PATHOLOGY/CYT OLOGY ORDERABLES Final Result [facility] [address] [place], [place] [id number] [place] [address] documented in this encounter Visit Diagnoses Diagnosis Illness, unspecified documented in this encounter
--- OUTSIDE RECORDS SUMMARY | 2024-10-28 12:22 | XMS_ITS | Encounter Summary ---
Author Organization [facility] [employer] [employer] [facility] Address [address] [place] [address] Care Team Providers Care Bus Aide Name Role Phone Silvio Dutton MD Primary Care Provider [phone] Encounter Details Date Type Department Care Team (Late Contact Info) Description 10/24/2024 Orders Only [facility] Oncology and Hematology [facility] [address] [place] [address] Chet Willingham MD [address] [place] [address] Social History Tobacco Use Types Packs/Day Years [...] Description 11/18/2024 2:00 PM CDT Office Visit [facility] Oncology and Hematology [address] [place] [address] Chet Willingham MD [address] [place] [address] documented as of this encounter Procedures Procedure Name Priority Date/Time Associated Diagnosis Comments CT CHEST W CONTRAST Routine 10/22/2024 8:04 AM CDT documented in this encounter Results * CT CHEST W CONTRAST (10/22/2024 8:04 AM CDT) Anatomical Region Laterality Modality Chest Computed Tomogra phy Chet Willingham MD CT ORDERABLES Final Result documented in this encounter Visit Diagnoses Not on filedocumented in this encounter Care Teams Bus Aide Relationship Specialty Start Date End Date Silvio Dutton MD [address] [facility] [address] [place] [address] PCP - General Internal Medicine 10/18/22 documented as of this encounter
--- OUTSIDE RECORDS SUMMARY | 2024-10-28 12:22 | XMS_ITS | Encounter Summary ---
Author Organization [facility] Address [address] [place] [address] Care Team Providers Care Children'S Tutor Name Role Phone Unavailable Primary Care Provider Unavailabl e Encounter Details Date Type Department Care Team (Late st Contact Info) Description 08/15/2023 Lab Requisition [facility] - Pathology Lab [address] [place] [address] Geovanni Perez MD [address] [address] Anemia, unspecified Social History Tobacco [...] AM CDT) Case Report Flow Cytometry Case: [id number] Authorizing Provider: Geovanni Perez Collected: 08/15/2023 09:30 AM MD Tevin Ordering Location: [facility] - Received: 08/15/2023 11:35 AM Pathology Lab Pathologist: Yessenia Thorne MD Specimen: Bone Marrow 08/15/2023 3:51 PM CDT [facility] Amended Report Inadvertently omitted was the final diagnosis. This was added. 08/15/2023 3:51 PM CDT [facility] Final Diagnosis Bone marrow, flow cytometry: - No clonal B-cell or increased blast population detected 08/15/2023 3:51 PM T [facility] Amendment electronically signed by Yessenia Thorne MD on 08/15/2023 at 1551 CDT at 1513 CDT Flow Cytometry Interpretation Viability: 92% B-cells: polytypic, kappa:lambda ratio 2:1 T-cells: not increased Blasts: not increased, 0.5% of overall events are myeloblasts and 0.7% of overall events represent hematogones A bone marrow aspirate smear prepared from the flow cytometry specimen has been reviewed for quality control microbiologist purposes. 08/15/2023 3:51 PM [facility] Flow Cytometry Results Differential Result Comment Flow Cell Count /uL 36,600 Total Viability % 92.0 Lymphocytes % 8 Dim CD45 Region % 4 Monocytes % 5 Granulocytes % 83 08/15/2023 3:51 PM CDT [facility] Reason for test Anemia, unspecified 285.9 08/15/2023 3:51 PM [facility] Client Specimen ID # [id number] 08/15/2023 3:51 PM [facility] Number of markers 19 were performed. A-2 Flow CD10 A-3 Flow CD13 A-5 Flow CD20 A-11 Flow CD2 A-13 Flow CD14 A-16 Flow CD117 A-17 Flow CD11b A-18 Flow CD11c A-1 Flow CD5 A-4 Flow CD19 A-6 Flow CD33 A-7 Flow CD34 A-8 Flow CD45 A-12 Flow CD7 A-14 Flow CD56 A-15 Flow CD64 A-9 [place]+CD19+ A-10 Lambda+CD19+ A-19 Flow HLA-DR 08/15/2023 3:51 PM CDT [facility] Pathologist Location at [facility] 08/15/2023 3:51 PM [facility] Disclaimer Test performed at [facility], [address] [place] [address], [id number]. *The established laboratory minimum viability is 70%. [...] complexity clinical testing. 08/15/2023 3:51 PM CDT [facility] Embedded Images 3:51 PM CDT [facility] Pathology/Cytolo gy BONE MARROW SPECIMEN / Unknown 08/15/2023 9:30 AM CDT 08/15/2023 11:35 AM CDT Geovanni Perez MD LAB - PATHO LOGY/CYTOLOGY ORDERABLES Edited Result - Final Performing Organization Address City/State/[facility] Co de Phone Number [facility] [address] [phone] documented in this encounter Visit Diagnoses Diagnosis Anemia, unspecified documented in this encounter
--- OUTSIDE RECORDS SUMMARY | 2024-10-28 12:22 | XMS_ITS | Clinical Summary ---
Author Organization [facility] Address [address] [place] [address] Care Team Providers Care Counsellors Name Role Phone Unavailable Primary Care Provider Unavailabl e Source Comments [facility],non-owned Affiliates and Associated Physician Practices is amultiple site organization consisting of ambulatory clinics and hospital sitesin [place], [place], [place] and [place]. This disclosure is being madepursuant to the Care Everywhere program and may not contain all information available regarding this patient. Last updated 17.[facility] [employer] Social History Tobacco Use Types Packs/Day Years [...] age to complete this topic Insurance MEDICARE [facility]
--- OUTSIDE RECORDS SUMMARY | 2024-10-28 12:22 | XMS_ITS | Encounter Summary ---
Author Organization [facility] Address [address] [place] [address] Care Team Providers Care Lot Worker Name Role Phone Silvio Dutton MD Primary Care Provider [phone] Reason for Referral * PET Scan (Routine) - Closed Specialty Diagnoses / Procedures Referred By Contac t Referred To Contact Diagnoses Non-small cell cancer of right lung (CMS/HCC) Procedures PET TUMOR OR INFECTION IMG W CT SKB Chet Scanlon MD [address] [employer] [place] [address] Phone: tel: fax: [place] [phone] Referral ID Status Reason Start Date Expiration Date V isits Requested Visits Authorized [id number] Closed [facility] CTS 10/28/2024 11/28/2025 1 1 Reason for Visit * Reason Onset Date Comments Follow up 10/28/2024 Encounter Details Date Type Department Care Team (Late st Contact Info) Description 10/28/2024 Telephone [facility] Oncology and Hematology [place] [address] [facility] [address] [place] [address] Chet Willingham MD [address] [place] [address] Follow up Social History Tobacco Use Types Packs/Day Years [...] on file documented as of this encounter Miscellaneous Notes * Telephone Encounter - Marcia Blackburn - 10/28/2024 8:00 AM CDT Will schedule appointment and notify daughter. * Telephone Encounter - Marcia Blackburn - 10/28/2024 7:58 AM CDT ----- Message from Dr. Chet Willingham sent at 10/25/2024 12:50 PM CDT ----- Regarding: RE: CT Scan I look at the CT scan. There is increase consolidation in the right midlung which could be infection and inflammation or may be malignancy. I will order the PET scan and then we will discuss that 1 week after the PET scan. ----- Message ----- From: Marcia Blackburn Sent: 10/25/2024 12:14 PM CDT To: Chet Willingham MD Subject: CT Scan Patients daughter called and wanted to know if you could review the CT scan and advise? documented in this encounter Plan of Treatment Upcoming Encounters Date Type Department Care Team (Late st Contact Info) Description 11/18/2024 2:00 PM CDT Office Visit [facility] Oncology and Hematology - [place] [address] [place] [address] [address] [place] [address] Chet Willingham MD [address] [facility] [address] [place] [address] Scheduled Orders Name Type Priority Associated Diagnoses Orde r Schedule PET TUMOR OR INFECTION IMG W CT SKB [facility] Imaging Routine Non-small cell cancer of right lung (CMS/HCC) Expected: 10/28/2024, Expires: 10/28/2025 documented as of this encounter Visit Diagnoses Diagnosis Non-small cell cancer of right lung (CMS/HCC)- Primary documented in this encounter Care Teams Lot Worker Relationship Specialty Start Date End Date Silvio Dutton MD [address] [facility] [address] [place] [address] PCP - General Internal Medicine 10/18/22 documented as of this encounter
--- NOTE | 2024-10-28 12:50 | ED.SOB ---
HPI - SOB/Dyspnea General Chief Complaint: Shortness of Breath/Dyspnea Stated Complaint: SOB Time Seen by Provider: 10/28/24 12:07 History of Present Illness HPI Narrative: Patient is an 84-year-old male who presents ER with shortness of breath. Worsening over last 2 weeks. Had an outpatient CT scan of the chest performed 1 week ago that showed increasing consolidation in the right lung. Malignancy versus infection versus atelectasis. Has known history of lung cancer that was treated with immunotherapy. He sees Dr. Willingham. Patient reports that he has chills every evening. He has gone from wearing no oxygen to 2 L at all times. No chest pain or chest pressure. Denies orthopnea. Related Data Home Medications ?Medication ?Instructions ?Recorded ?Confirmed ?Last Taken ?Type citalopram 20 mg tablet 20 mg PO DAILY 09/06/22 10/28/24 10/28/24 History lorazepam 0.5 mg tablet 0.5 mg PO TID 09/06/22 10/28/24 10/28/24 History metformin 1,000 mg tablet 1,000 mg PO BID 09/06/22 10/28/24 10/28/24 History rosuvastatin 20 mg tablet 20 mg PO DAILY 09/06/22 10/28/24 10/28/24 History cetirizine 10 mg tablet (Zyrtec) 10 mg PO DAILY 10/28/24 10/28/24 10/28/24 History cyanocobalamin (vitamin B-12) 1,000 mcg PO DAILY 10/28/24 10/28/24 10/28/24 History 1,000 mcg tablet ferrous sulfate 325 mg (65 mg 325 mg PO DAILY 10/28/24 10/28/24 10/28/24 History iron) tablet (FeroSul) levothyroxine 50 mcg tablet 50 mcg PO DAILY 10/28/24 10/28/24 10/28/24 History tamsulosin 0.4 mg capsule 0.4 mg PO HS 10/28/24 10/28/24 10/27/24 History Allergies Allergy/AdvReac Type Severity Reaction Status Date / Time codeine AdvReac Unknown Verified 10/28/24 16:35 niacin AdvReac Fl[place] Verified 10/28/24 16:35 Review of Systems Review of Systems: All systems reviewed & are unremarkable except as noted in HPI and below Constitutional: Constitutional: Reports no additional constitutional complaints Cardiovascular: Cardiovascular: Reports no additional cardiovascular complaints Respiratory: Respiratory: Reports no additional respiratory complaints Gastrointestinal: Gastrointestinal: Reports no additional gastrointestinal complaints Musculoskeletal: Musculoskeletal: Reports no additional musculoskeletal complaints [facility] Past Medical History Medical History (Updated 10/28/24 @ 21:31 by Sabino oSsa MD) Chronic obstructive pulmonary disease Chronic kidney disease, stage 3 Chronic respiratory failure with hypoxia Colon cancer (2014) Type 2 diabetes mellitus Non-small cell lung cancer (09/2022) Arising in the right lung status post chemo radiation, currently on immunotherapy. Hyperlipidemia Hypertension Thrombocytopenia Chronic anemia Obstructive sleep apnea Tobacco abuse Surgical History Surgical History History of skin graft History of bilateral cataract extraction History of cholecystectomy (2002) History of colon resection (2014) For colon cancer. Family History Family History Father Depression Social History Social History Social History: Surrogate medical decision maker: Mallorie Watson, spouse. Code status: Full code. Smoking packs per day: 1 Smoking cigarettes per day: 20.0 Years smoked: 60 Smoking pack-years: 60.00 Smoking status: Former smoker Tobacco type: cigarettes Alcohol intake: never Substance use: never Substance use type: does not use Do You Feel Safe in your Home?: Yes Lack of Transportation: No Lack of Food: Never True Current Housing: I Have Housing Concerned About Future Housing: No Difficulty Paying Gas/Electric Bills: No Difficulty Paying for Meds: No Currently Unemployed: No Education: High School Diploma/GED Difficulty w/ Childcare or Family Care: No Living arrangements: with family Occupation/Education: retired Spiritual care concerns: No Exam Narrative: GENERAL: Well-appearing, well-nourished, and in no acute distress. HEAD: Normocephalic, atraumatic. ENT: Mucous membranes moist. CHEST: Bibasilar crackles with scant wheezing.. No respiratory distress. HEART: Regular rate and rhythm. Normal peripheral pulses. ABDOMEN: Soft, nontender, nondistended. EXTREMITIES: Normal range of motion. 1+ edema. SKIN: Warm, dry, no rash. NEURO: Alert and oriented x3. PSYCH: Normal mood and affect. Course Course Emergency Course: Patient an family informed of results. Admit to hospitalist service. Abx ordered. Blood cultured. Recieved 30 ml/kg bolus. Vital Signs Vital signs: Vital Signs Pulse Rate 117 H 10/28/24 12:12 Respiratory Rate 32 H 10/28/24 12:12 Pulse Oximetry 88 L 10/28/24 12:12 Temperature 98.2 F 10/28/24 16:30 Pulse Rate 69 10/28/24 16:30 Respiratory Rate 20 10/28/24 16:30 Blood Pressure 126/71 10/28/24 16:30 Pulse Oximetry 96 10/28/24 16:30 Oxygen Delivery Nasal Cannula 10/28/24 12:13 Oxygen Flow Rate 2 10/28/24 12:13 MDM - SOB/Dyspnea Lab Data 10/28/24 12:54 10/28/24 12:54 Labs: Lab Results 10/28/24 10/28/24 Range/Units 12:54 14:11 WBC 7.3 (4.5-10.0) K/mm3 RBC 2.85 L (4.6-6.20) M/mm3 Hgb 7.5 L (14.0-18.0) g/dL Hct 25.9 L (42.0-52.0) % MCV 90.9 (80-100) fl MCH 26.3 (26-34) pg MCHC 29.0 L (32-36) g/dl RDW 19.5 H (11.5-14.5) % Plt Count 187 (150-375) k/mm3 MPV 9.2 (7.4-10.4) fl Immature Gran % (Auto) 0.8 H (0-0.5) % Neut % (Auto) 81.3 H (45.5-73.1) % Lymph % (Auto) 8.4 L (18.3-44.2) % [place] % (Auto) 8.3 (2.6-8.5) % Eos % (Auto) 0.8 (0-4.4) % Baso % (Auto) 0.4 (0.2-1.2) % Lymph # (Auto) 0.61 L (0.9-3.2) K/mm3 [place] # (Auto) 0.6 (0.1-0.6) K/mm3 Eos # (Auto) 0.1 (0-0.3) K/mm3 Baso # (Auto) 0.0 (0.0-0.1) K/mm3 Abs Immat Gran (auto) 0.06 H (0.00-0.031) K/mm3 Absolute Neuts (auto) 5.9 (1.3-6.7) K/mm3 Absolute Nucleated RBC 0.000 (0.0-0.012) K/mm3 Band Neutrophils % Not Reportable Nucleated RBC % 0.0 (0.0-0.2) % Platelet Estimate Adequate (Adequate) Hypochromasia 1+ Microcytosis 2+ (NORMAL) Ovalocytes Occasional Schistocytes None seen Sodium 133 L (137-145) mmol/L Potassium 4.3 (3.4-5.0) mmol/L Chloride 100 (98-107) mmol/L Carbon Dioxide 23 (22-30) mmol/L Anion Gap 10 (4-12) mmol/L BUN 23 H (9-20) mg/dL Creatinine 1.21 (0.7-1.3) mg/dL Estim Creat Clear Calc 41 ml/min Estimated GFR 57 L (59 - ) Glucose 200 H (65-110) mg/dL Lactic Acid 3.3 H (0.7-2.0) mmol/L Calcium 8.6 (8.4-10.2) mg/dL Total Bilirubin 0.4 (0.2-1.3) mg/dL AST 24 (17-59) U/L ALT 18 (6-50) U/L Alkaline Phosphatase 94 (38-126) U/L NT-Pro-B Natriuret Pep 263 H (19.9-100) pg/mL Total Protein 7.2 (6.3-8.2) g/dL Albumin 3.5 (3.5-5.1) g/dL Blood Type O Positive Antibody Screen Negative Critical Care Time Critical Care Time Critical Care Time: Yes Total Critical Care Time: 35 Discharge Plan Discharge Clinical Impression: Pneumonia, Anemia Patient Disposition: Still a Patient Condition: Stable
[2024-10-28 13:06] LABS: Hematocrit 25.9 % (42.0-52.0); Hemoglobin 7.5 g/dL (14.0-18.0); Immature Granulocyte Percent A 0.8 % (0-0.5); Lymphocytes Absolute Auto 0.61 K/mm3 (0.9-3.2); Mean Corpuscular HGB Conc 29.0 g/dl (32-36); Mean Corpuscular Hemoglobin 26.3 pg (26-34); Mean Corpuscular Volume 90.9 fl (80-100); Nucleated Red Blood Cells Absolute Auto 0.000 K/mm3 (0.0-0.012); Nucleated Red Blood Cells Perc 0.0 % (0.0-0.2); Platelet Count Result 187 k/mm3 (150-375); Red Blood Count 2.85 M/mm3 (4.6-6.20); White Blood Count 7.3 K/mm3 (4.5-10.0)
[2024-10-28 13:22] LABS: Hypochromasia 1+; Microcytosis 2+ (NORMAL); Ovalocytes Occasional; Schistocytes None Seen
[2024-10-28 13:31] LABS: Alanine Aminotransferase 18 U/L (6-50); Albumin Level 3.5 g/dL (3.5-5.1); Alkaline Phosphatase 94 U/L (38-126); Anion Gap 10 mmol/L (4-12); Aspartate Amino Transferase 24 U/L (17-59); Bilirubin,Total 0.4 mg/dL (0.2-1.3); Blood Urea Nitrogen 23 mg/dL (9-20); Calcium 8.6 mg/dL (8.4-10.2); Carbon Dioxide 23 mmol/L (22-30); Chloride 100 mmol/L (98-107); Estimated CRCL calculation 41 ml/min; Estimated Glomerular Filt Rate 57; Glucose 200 mg/dL (65-110); Potassium 4.3 mmol/L (3.4-5.0); Sodium 133 mmol/L (137-145); Total Protein 7.2 g/dL (6.3-8.2)
[2024-10-28 13:39] LABS: NT Pro B Type Natriuretic Pept 263 pg/mL (19.9-100)
[2024-10-28] MEDS: SODIUM CHLORIDE 0.9% IV 1,000 ML 999 ML IV CONT ×2 (14:24→16:03)
[2024-10-28] MEDS: cefTRIAXone 1 GM in SODIUM CHLORIDE 0.9% IV 50 ML 100 ML IVPB (14:25)
[2024-10-28] MEDS: AZITHROMYCIN IV 500 MG in SODIUM CHLORIDE 0.9% IV 250 ML IVPB (14:54)
--- NOTE | 2024-10-28 15:53 | PM.IMHP ---
H&P: HPI History of Present Illness Date/Time: 10/28/24 15:53 Chief Complaint: Shortness of Breath, Cough Narrative: 84 y/o M with PMH of COPD CAD CKD S3, chronic respiratory failure with hypoxia, colon cancer, diabetes, non-small cell lung cancer believed to be in remission, hyperlipidemia, hypertension, thrombocytopenia, chronic anemia, and ROBIN presents here with shortness of breath and cough. The patient presents here from home on 10/28 for further evaluation of cough and shortness of breath. The patient reports onset of symptoms approximately 3 weeks ago. Symptoms have been worsening over the last 2 weeks. He is now additionally reporting chills. He wears 2L at night, however has not had to wear 2L during daytime hours as well. He had an outpatient CT scan of his chest performed approximately 1 week ago which showed increasing consolidation in the right lung (malignancy versus infection versus atelectasis). Was prescribed medications but had not picked them up. He has a history of lung cancer that was previously treated with immunotherapy, felt to be in remission at this time. Followed with Trasha BEJARANO for his oncology care. Initial VS at presentation: HR 117, RR 32, 136/78, and 88% on room air. Now 96% on 2L NC. ED workup showed: No leukocytosis, hemoglobin 7.5 (10.1 on 07/10/2024), high sodium 133, creatinine 1.21 and GFR 57, glucose 200, lactic 3.3, BNP 263 (normal for age). CXR showed development of diffuse right-sided airspace disease which may represent pneumonia or less likely asymmetric edema, small right pleural effusion. Review of Systems Review of Systems: All systems reviewed & are unremarkable except as noted in HPI and below [facility] Past Medical History Medical History (Updated 10/28/24 @ 21:31 by Sabino Sosa MD) Chronic obstructive pulmonary disease Chronic kidney disease, stage 3 Chronic respiratory failure with hypoxia Colon cancer (2014) Type 2 diabetes mellitus Non-small cell lung cancer (09/2022) Arising in the right lung status post chemo radiation, currently on immunotherapy. Hyperlipidemia Hypertension Thrombocytopenia Chronic anemia Obstructive sleep apnea Tobacco abuse Surgical History Surgical History History of skin graft History of bilateral cataract extraction History of cholecystectomy (2002) History of colon resection (2014) For colon cancer. Family History Family History Father Depression Social History Social History Social History: Surrogate medical decision maker: Mallorie Watson, spouse. Code status: Full code. Smoking packs per day: 1 Smoking cigarettes per day: 20.0 Years smoked: 60 Smoking pack-years: 60.00 Smoking status: Former smoker Tobacco type: cigarettes Alcohol intake: never Substance use: never Substance use type: does not use Do You Feel Safe in your Home?: Yes Lack of Transportation: No Lack of Food: Never True Current Housing: I Have Housing Concerned About Future Housing: No Difficulty Paying Gas/Electric Bills: No Difficulty Paying for Meds: No Currently Unemployed: No Education: High School Diploma/GED Difficulty w/ Childcare or Family Care: No Living arrangements: with family Occupation/Education: retired Spiritual care concerns: No Meds Home Medications and Allergies Home Medications ?Medication ?Instructions ?Recorded ?Confirmed ?Type citalopram 20 mg tablet 20 mg PO DAILY 09/06/22 10/28/24 History lorazepam 0.5 mg tablet 0.5 mg PO TID 09/06/22 10/28/24 History metformin 1,000 mg tablet 1,000 mg PO BID 09/06/22 10/28/24 History rosuvastatin 20 mg tablet 20 mg PO DAILY 09/06/22 10/28/24 History insulin degludec 100 unit/mL (3 15 unit (0.15 mL) subcut HS #15 mL 11/19/23 10/28/24 Rx mL) subcutaneous pen (Tresiba FlexTouch U-100 insulin) fluticasone fur. 100 mcg-umeclid 1 inh inhalation Q24H 1 month #60 07/10/24 10/28/24 Rx 62.5 mcg-vilant 25 mcg ea inhalat.powder (Trelegy Ellipta) cetirizine 10 mg tablet (Zyrtec) 10 mg PO DAILY 10/28/24 10/28/24 History cyanocobalamin (vitamin B-12) 1,000 mcg PO DAILY 10/28/24 10/28/24 History 1,000 mcg tablet ferrous sulfate 325 mg (65 mg 325 mg PO DAILY 10/28/24 10/28/24 History iron) tablet (FeroSul) levothyroxine 50 mcg tablet 50 mcg PO DAILY 10/28/24 10/28/24 History tamsulosin 0.4 mg capsule 0.4 mg PO HS 10/28/24 10/28/24 History Allergies Allergy/AdvReac Type Severity Reaction Status Date / Time codeine AdvReac Unknown Verified 10/28/24 16:35 niacin AdvReac Flushing Verified 10/28/24 16:35 Vital Signs Vital Signs - 24 hr 10/28/24 12:12 10/28/24 12:13 10/28/24 12:13 Pulse Rate 117 H 114 H Respiratory Rate 32 H 29 H Blood Pressure 136/78 Pulse Oximetry 88 L 85 L 99 Oxygen Delivery Room Air Nasal Cannula Oxygen Flow Rate 2 10/28/24 12:14 10/28/24 12:15 10/28/24 12:16 Pulse Rate 115 H 114 H 113 H Respiratory Rate 25 H 19 29 H Blood Pressure 128/75 136/78 Pulse Oximetry 98 99 99 Oxygen Delivery Oxygen Flow Rate 10/28/24 12:35 10/28/24 13:00 10/28/24 13:01 Pulse Rate 109 H 109 H 108 H Respiratory Rate 35 H 38 H 36 H Blood Pressure 98/64 L Pulse Oximetry 97 97 96 Oxygen Delivery Oxygen Flow Rate 10/28/24 13:22 10/28/24 13:30 10/28/24 13:31 Pulse Rate 106 H 104 H 105 H Respiratory Rate 26 H 23 H 25 H Blood Pressure 93/64 L Pulse Oximetry 95 96 96 Oxygen Delivery Oxygen Flow Rate 10/28/24 14:54 Pulse Rate 105 H Respiratory Rate 30 H Blood Pressure Pulse Oximetry 96 Oxygen Delivery Oxygen Flow Rate Exam Const: General: comfortable and no acute distress Other: , male, elderly, chronically ill-appearing HENMT: Face/Nose/Sinus: Normal nares present Mouth: Yes moist mucous membranes Eyes: General: appearance normal, both eyes and all related structures Sclera: sclerae normal Pupils: Equal, round and reactive pupils present EOM: EOMs intact bilaterally Resp: Effort & Inspection: normal respiratory effort Other: Coarse breath sounds bilaterally, more significant at the bases. Nasal cannula place tolerating well. Cardio: Rate: regular rate Rhythm: regular rhythm Other: +murmur GI: Other: Abdomen soft, nondistended, nontender. Normoactive bowel sounds in all quadrants. Skin: General skin exam: normal color and no rashes or lesions noted Wounds: no wounds Neuro: Speech: normal speech Motor exam (neuro): 5/5 motor strength present throughout Sensory Exam: normal sensation Other: A&O x4 Extrem: General: normal to inspection Psych: Mental Status: mental status grossly normal Affect: normal affect Other: Good insight and judgment, pleasant H&P: Results Labs Labs: Short CBC 10/28/24 Range/Units 12:54 WBC 7.3 (4.5-10.0) K/mm3 Hgb 7.5 L (14.0-18.0) g/dL Hct 25.9 L (42.0-52.0) % Plt Count 187 (150-375) k/mm3 BMP 10/28/24 12:54 Sodium 133 L Potassium 4.3 Chloride 100 Carbon Dioxide 23 BUN 23 H Creatinine 1.21 Glucose 200 H Calcium 8.6 Liver Function 10/28/24 Range/Units 12:54 Total Bilirubin 0.4 (0.2-1.3) mg/dL AST 24 (17-59) U/L ALT 18 (6-50) U/L Alkaline Phosphatase 94 (38-126) U/L Albumin 3.5 (3.5-5.1) g/dL Assessment and Plan Assessment and plan (1) Sepsis: Qualifiers: Acute respiratory failure type: with hypoxia Sepsis acute organ dysfunction status: with acute organ dysfunction Sepsis type: sepsis during labor Severe sepsis acute organ dysfunction type: acute respiratory failure Severe sepsis shock status: without septic shock Qualified Code(s): O75.3 - Other infection during labor; A41.9 - Sepsis, unspecified organism; J96.01 - Acute respiratory failure with hypoxia; R65.20 - Severe sepsis without septic shock Code(s): A41.9 - Sepsis, unspecified organism Status: Acute Assessment and Plan: - meets SIRS criteria: HR greater than 90, RR greater than 20. No leukocytosis. +hypoxia. - lactic acid: 3.3 -> 1.0 - lactic elevated, procalcitonin added -> 0.2 - 30 mL/kg = 2100, given 2L bolus in the ED - suspected source: Pneumonia - started on ceftriaxone and azithromycin - blood cultures drawn on 10/28, follow - monitor hemodynamic stability (2) Acute and chronic respiratory failure with hypoxia: Code(s): J96.21 - Acute and chronic respiratory failure with hypoxia Status: Acute Assessment and Plan: - at baseline requires 2 L nasal cannula at nighttime, now requiring 2 L at all times to maintain an O2 sat greater than 92%. Arrived 88% on room air. Imaging concerning for pneumonia versus malignancy versus atelectasis. [place]um to be in favor of pneumonia as the patient has been experiencing chills. Started on ABX, see below. (3) Pneumonia: Qualifiers: Laterality: right Lung location: unspecified part of lung Pneumonia type: due to unspecified organism Qualified Code(s): J18.9 - Pneumonia, unspecified organism Code(s): J18.9 - Pneumonia, unspecified organism Status: Acute Assessment and Plan: - CXR: 1: Development of diffuse right-sided airspace disease which may represent pneumonia or less likely asymmetric edema. 2: Small right pleural effusion. - risk and complicating factors: previous hx of adenocarcinoma of the lung and chronic right-sided pleural effusion - started on CAP tx: Ceftriaxone and azithromycin - check MRSA PCR and sputum culture - supportive care: Mucinex, Tessalon Perles, Tylenol, DuoNebs - consider new supplemental O2 to maintain O2 sat greater than 92%, wean as tolerated (4) COPD (chronic obstructive pulmonary disease): Qualifiers: COPD type: unspecified COPD Qualified Code(s): J44.9 - Chronic obstructive pulmonary disease, unspecified Code(s): J44.9 - Chronic obstructive pulmonary disease, unspecified Status: Acute Assessment and Plan: - DuoNebs PRN (5) Chronic anemia: Code(s): D64.9 - Anemia, unspecified Status: Chronic Assessment and Plan: - denies blood in his stool, has been dark but he is on iron - Hgb 7.5 upon admission, previously 10.1 on 07/10/2024 - Hx of chronic anemia of chronic disease - check iron, TIBC, ferritin, B12, folic acid, TSH, stool occult - transfuse if <7 - trend H&H - continue iron supplement (6) Type 2 diabetes mellitus: Code(s): E11.9 - Type 2 diabetes mellitus without complications Status: Chronic Assessment and Plan: - hypoglycemia protocol - POC blood glucose ACHS - home medication: Continue Tresiba 15 units HS. Hold metformin in case of need for contrast. - correct regimen ordered - low dose TIDWM, based off BMI - A1C 6.4% on 06/11/2024 (7) Chronic kidney disease, stage 3: Qualifiers: Chronic kidney disease stage 3 subtype: unspecified whether 3a or 3b Qualified Code(s): N18.30 - Chronic kidney disease, stage 3 unspecified Code(s): N18.30 - Chronic kidney disease, stage 3 unspecified Status: Chronic Assessment and Plan: - creatinine 1.21, BUN 23, GFR 57 upon admission - baseline creatinine: 1-1.2, recent KORIN in July of 2024 with a peak creatinine of 1.67 - trend renal function - trend electrolytes, correct as needed (8) Adenocarcinoma, lung: Qualifiers: Laterality: right Qualified Code(s): C34.91 - Malignant neoplasm of unspecified part of right bronchus or lung Code(s): C34.90 - Malignant neoplasm of unspecified part of unspecified bronchus or lung Status: Acute Assessment and Plan: - hx of adenocarcinoma of the lung s/p chemo radiation. Previously required a PleurX for a chronic pleural effusion of the right side. - follows with Tarsha BEJARANO (9) Hypertension: Qualifiers: Hypertension type: unspecified Qualified Code(s): I10 - Essential (primary) hypertension Code(s): I10 - Essential (primary) hypertension Status: Chronic Assessment and Plan: - chronic, currently 106/65 - no longer on antihypertensive medications - monitor (10) Obstructive sleep apnea: Code(s): G47.33 - Obstructive sleep apnea (adult) (pediatric) Status: Chronic Assessment and Plan: - wears 2L NC at night, currently requiring during daytime hours. Continue supplemental O2 to maintain O2 sat greater than 92%. Wean to baseline nocturnal needs as tolerated. Plan Diet: Heart healthy GI Prophylaxis: N/a DVT Prophylaxis: scds IV fluids: 2L bolus Lines/Tubes: Peripheral IV Code Status: Full code Quality VTE Prophylaxis VTE prophylaxis: mechanical ordered Hospitalist [facility] Advance Care Plan I have confirmed that the patient's Advanced Care Plan is present, code status is documented, or surrogate decision maker is listed in patient medical record.: Yes Medication Reconciliation I have utilized all available resources to obtain, update and review the patients current medications (includes all prescriptions, OTC, herbals, cannabis, and nutritional supplements).: Yes
--- NOTE | 2024-10-28 16:33 | ADMGEN ---
This patient, Michele Watson, was admitted to Medical Room 346-01. Patient/family oriented to hospital policies and general routines including ID bracelet, bed and alarms, visiting hours, pain management, procedures, bathroom and other care routines, personal items, smoking policy, room service/diet, and visiting hours. Information on how to activate the Rapid Response Team has been discussed. Patient/Family are encouraged to report perceived risks to care and to ask questions if they do not understand what they are told or what they should do.
[2024-10-28 17:54] LABS: Procalcitonin 0.2 ng/mL
[2024-10-28 17:59] LABS: Iron 22 ug/dL (49-181)
[2024-10-28 18:08] LABS: Percent Iron Saturation 11 % (20-50)
[2024-10-28 18:09] LABS: MRSA (PCR) NOT DETECTED (NOT DETECTE)
[2024-10-28 18:12] LABS: Thyroid Stimulating Hormone Reflex 2.860 uIU/mL (0.465-4.68)
[2024-10-28 18:16] LABS: Ferritin 483.00 ng/mL (11.1-264)
[2024-10-28 18:35] LABS: Vitamin B12 820.0 pg/mL (239-931)
[2024-10-28] MEDS: guaiFENesin 12 HR 600 MG TABCR PO (20:02)
[2024-10-28] MEDS: CENTRAL LINE FLUSH 10 ML IV PUSH (22:41)
[2024-10-28] MEDS: INSULIN GLARGINE (*BKC) 100 UNITS/ML 15 UNITS SUB-Q (22:41)
[2024-10-29] VITALS (9 sets, daily range): BP systolic 115–128; BP diastolic 63–78; PULSE 95–128; RESP 14–24; TEMP 36.3–38.3; O2SAT 90–96
[2024-10-29] MEDS: CENTRAL LINE FLUSH 10 ML IV PUSH ×3 (05:25→22:49)
[2024-10-29] MEDS: ACETAMINOPHEN 500 MG TABLET PO (05:28)
[2024-10-29] MEDS: LEVOTHYROXINE SODIUM 50 MCG TABLET PO (05:29)
[2024-10-29] MEDS: FLUTICASONE/UMECLIDIN/VILANTER 100-62.5-25 MCG ELLIPTA 1 PUFF INHALATION (07:44)
--- NOTE | 2024-10-29 08:13 | P.PNIM_ITS ---
Progress Note: A&P Assessment and Plan (1) Sepsis: Qualifiers: Acute respiratory failure type: with hypoxia Sepsis acute organ dysfunction status: with acute organ dysfunction Sepsis type: sepsis during labor Severe sepsis acute organ dysfunction type: acute respiratory failure Severe sepsis shock status: without septic shock Qualified Code(s): O75.3 - Other infection during labor; A41.9 - Sepsis, unspecified organism; J96.01 - Acute respiratory failure with hypoxia; R65.20 - Severe sepsis without septic shock Code(s): A41.9 - Sepsis, unspecified organism Status: Acute Assessment and Plan: - sepsis criteria met with HR greater than 90, RR greater than 20. No leukocytosis. +hypoxia. - lactic acid: 3.3 -> 1.0 - procalcitonin 0.2 - 30 mL/kg = 2100, given 2L bolus in the ED - suspected source: pneumonia - management as below - continue antibiotics - blood cultures drawn on 10/28, follow - monitor hemodynamic stability (2) Pneumonia: Qualifiers: Laterality: right Lung location: unspecified part of lung Pneumonia type: due to unspecified organism Qualified Code(s): J18.9 - Pneumonia, unspecified organism Code(s): J18.9 - Pneumonia, unspecified organism Status: Acute Assessment and Plan: - CT chest 10/22 with interval increase in the size of a consolidation in the right mid lung, differential includes postobstructive atelectasis, pneumonia or malignancy. PET/CT recommended. - admit CXR with right-sided airspace disease, small right pleural effusion - complicating factors: previous hx of adenocarcinoma of the lung and chronic right-sided pleural effusion - MRSA DNA negative - continue ceftriaxone and azithromycin - supportive care: Mucinex, Tessalon Perles, Tylenol, DuoNebs - new supplemental O2 (3L) to maintain O2 sat greater than 92%, wean as tolerated (3) Acute and chronic respiratory failure with hypoxia: Code(s): J96.21 - Acute and chronic respiratory failure with hypoxia Status: Acute Assessment and Plan: - arrived 88% on RA -at baseline requires 2 L nasal cannula at nighttime, now requiring 3 L at all times to maintain an O2 sat greater than 92%. - likely secondary to pneumonia - wean O2 as able - respiratory hygiene, incentive spirometry (4) COPD (chronic obstructive pulmonary disease): Qualifiers: COPD type: unspecified COPD Qualified Code(s): J44.9 - Chronic obstructive pulmonary disease, unspecified Code(s): J44.9 - Chronic obstructive pulmonary disease, unspecified Status: Acute Assessment and Plan: - Sourav FELIZ (5) Chronic anemia: Code(s): D64.9 - Anemia, unspecified Status: Chronic Assessment and Plan: - denies blood in his stool, has been dark but he is on iron - Hgb 7.5 upon admission, previously 10.1 on 07/10/2024 - Hx of chronic anemia of chronic disease - iron and t sat low. - check stool occult - transfuse if <7 - trend H&H - continue iron supplement (6) Type 2 diabetes mellitus: Code(s): E11.9 - Type 2 diabetes mellitus without complications Status: Chronic Assessment and Plan: - A1c 6.4% on 06/11/2024 - hold metformin - hypoglycemia protocol - POC blood glucose ACHS - home medication: Continue Lantus 15 units HS. - low dose SSI (7) Chronic kidney disease, stage 3: Qualifiers: Chronic kidney disease stage 3 subtype: unspecified whether 3a or 3b Qualified Code(s): N18.30 - Chronic kidney disease, stage 3 unspecified Code(s): N18.30 - Chronic kidney disease, stage 3 unspecified Status: Chronic Assessment and Plan: - creatinine 1.21, BUN 23, GFR 57 upon admission - baseline creatinine: 1-1.2 - trend renal function - trend electrolytes, correct as needed (8) Adenocarcinoma, lung: Qualifiers: Laterality: right Qualified Code(s): C34.91 - Malignant neoplasm of unspecified part of right bronchus or lung Code(s): C34.90 - Malignant neoplasm of unspecified part of unspecified bronchus or lung Status: Acute Assessment and Plan: - hx of adenocarcinoma of the lung s/p chemo radiation. Previously required a PleurX for a chronic pleural effusion of the right side. - follows with Tarsha BEJARANO - needs PET scan as outpatient (9) Obstructive sleep apnea: Code(s): G47.33 - Obstructive sleep apnea (adult) (pediatric) Status: Chronic Assessment and Plan: - wears 2L NC at night, currently requiring during daytime hours. Continue supplemental O2 to maintain O2 sat greater than 92%. Wean to baseline nocturnal needs as tolerated. Plan DVT Prophylaxis: scds Code Status: Full code Subjective Date/time seen: 10/29/24 08:13 Interval history: 84 y/o M with PMH of COPD CAD CKD S3, chronic respiratory failure with hypoxia, colon cancer, diabetes, non-small cell lung cancer believed to be in remission, hyperlipidemia, hypertension, thrombocytopenia, chronic anemia, and ROBIN presents here with shortness of breath and cough. Patient seen and examined at bedside. Feeling okay this AM. Denied chest pain. Review of Systems Review of Systems: All systems reviewed & are unremarkable except as noted in HPI and below Exam Narrative: General: NAD, appears deconditioned Eyes: EOMI ENT: neck supple Cardiovascular: Regular rate and rhythm Respiratory: Clear to auscultation, respirations even and unlabored on 2.5L NC Gastrointestinal: Soft, non tender Genitourinary: no suprapubic tenderness Musculoskeletal: No edema Skin: warm, dry Neuro: Alert. Psych: Mood appropriate Objective Data Vital Signs Vital Signs: Vital Signs - 24 hr 10/28/24 12:12 10/28/24 12:13 10/28/24 12:13 Temperature Pulse Rate 117 H 114 H Respiratory Rate 32 H 29 H Blood Pressure 136/78 Pulse Oximetry 88 L 85 L 99 Oxygen Delivery Room Air Nasal Cannula Oxygen Flow Rate 2 10/28/24 12:14 10/28/24 12:15 10/28/24 12:16 Temperature Pulse Rate 115 H 114 H 113 H Respiratory Rate 25 H 19 29 H Blood Pressure 128/75 136/78 Pulse Oximetry 98 99 99 Oxygen Delivery Oxygen Flow Rate 10/28/24 12:35 10/28/24 13:00 10/28/24 13:01 Temperature Pulse Rate 109 H 109 H 108 H Respiratory Rate 35 H 38 H 36 H Blood Pressure 98/64 L Pulse Oximetry 97 97 96 Oxygen Delivery Oxygen Flow Rate 10/28/24 13:22 10/28/24 13:30 10/28/24 13:31 Temperature Pulse Rate 106 H 104 H 105 H Respiratory Rate 26 H 23 H 25 H Blood Pressure 93/64 L Pulse Oximetry 95 96 96 Oxygen Delivery Oxygen Flow Rate 10/28/24 14:54 10/28/24 15:00 10/28/24 15:01 Temperature Pulse Rate 105 H 101 H 102 H Respiratory Rate 30 H 23 H 20 Blood Pressure 111/67 Pulse Oximetry 96 97 97 Oxygen Delivery Oxygen Flow Rate 10/28/24 15:30 10/28/24 15:31 10/28/24 15:54 Temperature Pulse Rate 100 102 H 102 H Respiratory Rate 17 23 H 21 H Blood Pressure 107/71 Pulse Oximetry 98 100 97 Oxygen Delivery Oxygen Flow Rate 10/28/24 16:00 10/28/24 16:01 10/28/24 16:30 Temperature 98.2 F Pulse Rate 102 H 102 H 69 Respiratory Rate 26 H 27 H 20 Blood Pressure 106/65 126/71 Pulse Oximetry 97 98 96 Oxygen Delivery Oxygen Flow Rate 10/28/24 19:45 10/28/24 22:00 10/29/24 06:00 Temperature 97.2 F L 98.2 F Pulse Rate 116 H 110 H 95 Respiratory Rate 16 16 Blood Pressure 125/52 L 115/64 Pulse Oximetry 90 94 95 Oxygen Delivery Nasal Cannula Oxygen Flow Rate 3 10/29/24 07:38 Temperature Pulse Rate Respiratory Rate Blood Pressure Pulse Oximetry 94 Oxygen Delivery Nasal Cannula Oxygen Flow Rate 3 Intake/Output Intake/Output: Intake & Output 10/26/24 10/27/24 10/28/24 10/29/24 23:59 23:59 23:59 23:59 Intake Total 1930 400 Output Total 300 1400 Balance 1630 -1000 Meds/Results Medications: Active Medications Generic Name Dose Route Start Last Admin Trade Name Freq PRN Reason Stop Dose Admin Acetaminophen 500 mg 10/28/24 16:19 10/29/24 05:28 Acetaminophen 500 Mg Tablet PO 500 mg Q6H PRN Administration Mild Pain (1-3) or Fever Albuterol/Ipratropium 3 ml 10/28/24 16:19 Ipratropium 0.5 Mg/Albuterol Sulfate 2.5 Mg Ampul.Neb 3 Ml INHALATION Q6HRT PRN Shortness Of Breath Or Wheezing Benzonatate 100 mg 10/28/24 16:19 Benzonatate 100 Mg Capsule PO TID PRN Cough Citalopram Hydrobromide 20 mg 10/29/24 09:00 Citalopram Hydrobromide 20 Mg Tablet PO DAILY [facility] Cyanocobalamin 1,000 mcg 10/29/24 09:00 Cyanocobalamin 1,000 Mcg Tablet PO DAILY JERROD Dextrose 12.5 gm 10/28/24 16:19 Dextrose 50% 25 Gm/50 Ml Syringe IV PUSH PRN PRN Hypoglycemia Protocol Ferrous Sulfate 325 mg 10/29/24 12:00 Ferrous Sulfate [address] BY MOUTH DAILY@1200 [facility] Fluticasone/Umeclidinium/Vilanterol 1 puff 10/29/24 08:00 10/29/24 07:44 Fluticasone/Umeclidin/Vilanter 100-62.5-25 Mcg Ellipta INHALATION 1 puff DAILYRT JERROD Administration Glucagon 1 mg 10/28/24 16:19 Glucagon For Inj 1 Mg Vial IM PRN PRN Hypoglycemia Protocol Glucose 15 gm 10/28/24 16:19 Glucose Oral Gel 15 Gm Of Glucse In 37.5 Gm Tube PO PRN PRN Hypoglycemia Protocol Guaifenesin 600 mg 10/28/24 21:00 10/28/24 20:02 Guaifenesin 12 Hr 600 Mg Tabcr PO 600 mg Q12HR JERROD Administration Heparin Sodium (Beef Lung) 50 units 10/29/24 09:00 Heparin Flush 50 Units/5 Ml Syringe IV PUSH QAM JERROD Heparin Sodium (Beef Lung) 50 units 10/28/24 21:47 Heparin Flush 50 Units/5 Ml Syringe IV PUSH PRN PRN after intermittent infusion Heparin Sodium (Beef Lung) 50 units 10/28/24 21:47 Heparin Flush 50 Units/5 Ml Syringe IV PUSH PRN PRN after blood draws Heparin Sodium (Porcine) 500 units 10/28/24 21:47 Heparin Sodium Lock Flush 500 Units/5 Ml Syringe IV PUSH PRN PRN see comments below Ceftriaxone Sodium 1 gm/ 50 mls @ 100 mls/hr 10/29/24 14:00 Sodium Chloride IVPB Q24H JERROD Azithromycin 500 mg/ Sodium 250 mls @ 250 mls/hr 10/29/24 15:00 Chloride IVPB 11/01/24 15:59 Q24H JERROD Dextrose 1,000 mls @ 100 mls/hr 10/28/24 16:19 Dextrose 5% 1,000 Ml IVPB PRN PRN Hypoglycemia Protocol Insulin Aspart 2 - 5 units 10/28/24 17:00 10/28/24 17:04 Insulin Aspart (*Bkc) 100 Units/Ml SUB-Q Not Given TIDWM [facility] Protocol Insulin Glargine 15 units 10/28/24 21:00 10/28/24 22:41 Insulin Glargine (*Bkc) 100 Units/Ml SUB-Q 15 units HS [facility] Administration Levothyroxine Sodium 50 mcg 10/29/24 06:30 10/29/24 05:29 Levothyroxine Sodium 50 Mcg Tablet PO 50 mcg DAILY@0630 [facility] Administration Loratadine 10 mg 10/29/24 09:00 Loratadine 10 Mg Tablet PO QAM [facility] Lorazepam 0.5 mg 10/29/24 09:00 Lorazepam (*Crx) 0.5 Mg Tablet PO TID [facility] Morphine Sulfate 2 mg 10/28/24 14:53 Morphine Sulfate (*Crx) 2 Mg/Ml Inj IV PUSH Q2H PRN Pain Rated 7-10 Rosuvastatin Calcium 20 mg 10/29/24 09:00 Rosuvastatin 20 Mg Tablet PO DAILY [facility] Sodium Chloride 10 ml 10/28/24 22:00 10/29/24 05:25 Central Line Flush IV PUSH 10 ml Q8HR [facility] Administration Tamsulosin HCl 0.4 mg 10/29/24 21:00 Tamsulosin Hcl 0.4 Mg Capsule PO HS [facility] Radiology Results: ITS Impressions Chest X-Ray 10/28/24 13:15 Impression: 1: Development of diffuse right-sided airspace disease which may represent pneumonia or less likely asymmetric edema. 2: Small right pleural effusion. Labs Labs: Laboratory Results - last 24 hr 10/28/24 10/28/24 10/28/24 12:54 14:11 16:46 WBC 7.3 RBC 2.85 L Hgb 7.5 L Hct 25.9 L MCV 90.9 MCH 26.3 MCHC 29.0 L RDW 19.5 H Plt Count 187 MPV 9.2 Immature Gran % (Auto) 0.8 H Neut % (Auto) 81.3 H Lymph % (Auto) 8.4 L [place] % (Auto) 8.3 Eos % (Auto) 0.8 Baso % (Auto) 0.4 Lymph # (Auto) 0.61 L [place] # (Auto) 0.6 Eos # (Auto) 0.1 Baso # (Auto) 0.0 Abs Immat Gran (auto) 0.06 H Absolute Neuts (auto) 5.9 Absolute Nucleated RBC 0.000 Band Neutrophils % Not Reportable Nucleated RBC % 0.0 Platelet Estimate Adequate Hypochromasia 1+ Microcytosis 2+ Ovalocytes Occasional Schistocytes None seen Sodium 133 L Potassium 4.3 Chloride 100 Carbon Dioxide 23 Anion Gap 10 BUN 23 H Creatinine 1.21 Estim Creat Clear Calc 41 Estimated GFR 57 L Glucose 200 H POC Capillary Glucose Lactic Acid 3.3 H Calcium 8.6 Iron TIBC % Saturation Ferritin Total Bilirubin 0.4 AST 24 ALT 18 Alkaline Phosphatase 94 NT-Pro-B Natriuret Pep 263 H Total Protein 7.2 Albumin 3.5 Vitamin B12 Folate Procalcitonin TSH (Reflex) Nasal MRSA (PCR) Not detected Blood Type O Positive Antibody Screen Negative 10/28/24 10/28/24 10/29/24 16:56 20:36 08:06 WBC RBC Hgb Hct MCV MCH MCHC RDW Plt Count MPV Immature Gran % (Auto) Neut % (Auto) Lymph % (Auto) [place] % (Auto) Eos % (Auto) Baso % (Auto) Lymph # (Auto) [place] # (Auto) Eos # (Auto) Baso # (Auto) Abs Immat Gran (auto) Absolute Neuts (auto) Absolute Nucleated RBC Band Neutrophils % Nucleated RBC % Platelet Estimate Hypochromasia Microcytosis Ovalocytes Schistocytes Sodium Potassium Chloride Carbon Dioxide Anion Gap BUN Creatinine Estim Creat Clear Calc Estimated GFR Glucose POC Capillary Glucose 186 H 160 H Lactic Acid 1.0 Calcium Iron 22 L TIBC 195 L % Saturation 11 L Ferritin 483.00 H Total Bilirubin AST ALT Alkaline Phosphatase NT-Pro-B Natriuret Pep Total Protein Albumin Vitamin B12 820.0 Folate 5.7 Procalcitonin 0.2 TSH (Reflex) 2.860 Nasal MRSA (PCR) Blood Type Antibody Screen Quality VTE Prophylaxis VTE prophylaxis: mechanical ordered
[2024-10-29] MEDS: LORATADINE 10 MG TABLET PO (08:41)
[2024-10-29] MEDS: ROSUVASTATIN 20 MG TABLET PO (08:41)
[2024-10-29] MEDS: CITALOPRAM HYDROBROMIDE 20 MG TABLET PO (08:41)
[2024-10-29] MEDS: CYANOCOBALAMIN 1,000 MCG TABLET 1000 MCG PO (08:41)
[2024-10-29] MEDS: LORazepam (*CRX) 0.5 MG TABLET PO ×3 (08:41→16:57)
[2024-10-29] MEDS: guaiFENesin 12 HR 600 MG TABCR PO ×2 (08:41→21:33)
[2024-10-29 09:53] LABS: Hematocrit 25.8 % (42.0-52.0); Hemoglobin 7.7 g/dL (14.0-18.0); Immature Granulocyte Percent A 1.1 % (0-0.5); Lymphocytes Absolute Auto 0.74 K/mm3 (0.9-3.2); Mean Corpuscular HGB Conc 29.8 g/dl (32-36); Mean Corpuscular Hemoglobin 26.7 pg (26-34); Mean Corpuscular Volume 89.6 fl (80-100); Nucleated Red Blood Cells Absolute Auto 0.000 K/mm3 (0.0-0.012); Nucleated Red Blood Cells Perc 0.0 % (0.0-0.2); Platelet Count Result 163 k/mm3 (150-375); Red Blood Count 2.88 M/mm3 (4.6-6.20); White Blood Count 7.3 K/mm3 (4.5-10.0)
[2024-10-29 10:17] LABS: Alanine Aminotransferase 14 U/L (6-50); Albumin Level 3.3 g/dL (3.5-5.1); Alkaline Phosphatase 91 U/L (38-126); Anion Gap 6 mmol/L (4-12); Anisocytosis 1+; Aspartate Amino Transferase 24 U/L (17-59); Bilirubin,Total 0.3 mg/dL (0.2-1.3); Blood Urea Nitrogen 17 mg/dL (9-20); Calcium 8.5 mg/dL (8.4-10.2); Carbon Dioxide 25 mmol/L (22-30); Chloride 102 mmol/L (98-107); Estimated CRCL calculation 42 ml/min; Estimated Glomerular Filt Rate 60; Glucose 236 mg/dL (65-110); Potassium 4.2 mmol/L (3.4-5.0); Sodium 133 mmol/L (137-145); Total Protein 6.7 g/dL (6.3-8.2)
[2024-10-29 10:18] LABS: Hypochromasia Occasional; Ovalocytes Occasional; Schistocytes None Seen
[2024-10-29] MEDS: FERROUS SULFATE 325 MG TABLET DR BY MOUTH (12:34)
[2024-10-29] MEDS: cefTRIAXone 1 GM in SODIUM CHLORIDE 0.9% IV 50 ML 100 ML IVPB (14:11)
[2024-10-29] MEDS: AZITHROMYCIN IV 500 MG in SODIUM CHLORIDE 0.9% IV 250 ML IVPB (14:38)
--- NOTE | 2024-10-29 20:51 | ECG_ITS ---
Test Date: 2024-10-29 21:25:12 Measurements Intervals [place] Rate: 120 P: 61 [place]: 185 QRS: 55 QRSD: 103 T: 52 QT: 327 QTc: 464 Interpretive Statements SINUS TACHYCARDIA LOW QRS VOLTAGE IN PRECORDIAL LEADS INCOMPLETE RIGHT BUNDLE BRANCH BLOCK ABNORMAL ECG Compared to ECG 10/28/2024 12:17:26 HEART RATE HAS INCREASED Electronically Signed On 10-30-2024 06:29:29 CDT by Camilo Resendiz D.O.
--- NOTE | 2024-10-29 21:04 | PC.NURSE ---
Pt found to be lethargic and very weak. Was unable to stand at bedside to use urinal. O2 increased to 3L and pt assisted x2 to urinate. Pt states he just wants to sleep and he is weak. Family called cell phone and pt tried to use it but was unable to hit the answer button. Nurse assisted. Pt family then called and stated he was acting strange. Family at bedside at this time. MD notified. Pt seems very tired and weak and states he feels worse. Pt continues to ask for freya, holding for MD assessment. MD ordered EKG stat. Will continue to monitor pt.
[2024-10-29] MEDS: METOPROLOL TARTRATE INJ 5 MG/5 ML VIAL IV PUSH (21:33)
[2024-10-29] MEDS: TAMSULOSIN HCL 0.4 MG CAPSULE PO (21:33)
[2024-10-29] MEDS: INSULIN GLARGINE (*BKC) 100 UNITS/ML 15 UNITS SUB-Q (22:00)
--- NOTE | 2024-10-29 22:40 | P.PNCROSS_ITS ---
Event Note Event Note Event Note: Bedside RN requesting evaluation of patient. Patient appears more confused, i ncreasingly tachypneic, worsening O2 requirement (2L -> 4L), and tachycardic in the 120s. Patient able to answer orientation questions, no overt confusion appreciated. Breath sounds were coarse bilaterally yesterday, more significant in the bases. Today upon auscultation the patient has bibasilar crackles, no longer coarse, and no wheezing appreciated. Patient also noted to have a fever of 100.9? F. EKG was obtained and reviewed. Showing sinus tachycardia, rate 120. Reviewed patient's fluid balance, high previously received 2L bolus of fluids. Does not appear dry on exam. Patient given 5 mg IV of metoprolol, heart rate now improved to 100-110. Post metoprolol the patient appears more cognizant, tachypnea improved, and family reports that he is more sassy and generally appears back to where he was prior to worsening of his symptoms.
[2024-10-30] VITALS (22 sets, daily range): BP systolic 102–106; BP diastolic 60–61; PULSE 94–140; RESP 18–20; TEMP 36.4–37.8; O2SAT 92–98
[2024-10-30] MEDS: CENTRAL LINE FLUSH 10 ML IV PUSH ×3 (05:33→21:05)
[2024-10-30 05:42] LABS: Hematocrit 27.5 % (42.0-52.0); Hemoglobin 8.2 g/dL (14.0-18.0); Immature Granulocyte Percent A 0.6 % (0-0.5); Lymphocytes Absolute Auto 1.21 K/mm3 (0.9-3.2); Mean Corpuscular HGB Conc 29.8 g/dl (32-36); Mean Corpuscular Hemoglobin 26.5 pg (26-34); Mean Corpuscular Volume 89.0 fl (80-100); Nucleated Red Blood Cells Absolute Auto 0.000 K/mm3 (0.0-0.012); Nucleated Red Blood Cells Perc 0.0 % (0.0-0.2); Platelet Count Result 205 k/mm3 (150-375); Red Blood Count 3.09 M/mm3 (4.6-6.20); White Blood Count 10.9 K/mm3 (4.5-10.0)
[2024-10-30] MEDS: LEVOTHYROXINE SODIUM 50 MCG TABLET PO (05:57)
[2024-10-30 06:07] LABS: Alanine Aminotransferase 17 U/L (6-50); Albumin Level 3.5 g/dL (3.5-5.1); Alkaline Phosphatase 113 U/L (38-126); Anion Gap 9 mmol/L (4-12); Aspartate Amino Transferase 29 U/L (17-59); Bilirubin,Total 0.4 mg/dL (0.2-1.3); Blood Urea Nitrogen 20 mg/dL (9-20); Calcium 9.0 mg/dL (8.4-10.2); Carbon Dioxide 23 mmol/L (22-30); Chloride 102 mmol/L (98-107); Estimated CRCL calculation 40 ml/min; Estimated Glomerular Filt Rate 56; Glucose 176 mg/dL (65-110); Potassium 4.5 mmol/L (3.4-5.0); Sodium 134 mmol/L (137-145); Total Protein 7.3 g/dL (6.3-8.2)
[2024-10-30 06:12] LABS: Anisocytosis 1+; Hypochromasia 1+; Schistocytes None Seen
--- NOTE | 2024-10-30 08:05 | P.PNIM_ITS ---
Progress Note: A&P Assessment and Plan (1) Sepsis: Qualifiers: Acute respiratory failure type: with hypoxia Sepsis acute organ dysfunction status: with acute organ dysfunction Sepsis type: sepsis during labor Severe sepsis acute organ dysfunction type: acute respiratory failure Severe sepsis shock status: without septic shock Qualified Code(s): O75.3 - Other infection during labor; A41.9 - Sepsis, unspecified organism; J96.01 - Acute respiratory failure with hypoxia; R65.20 - Severe sepsis without septic shock Code(s): A41.9 - Sepsis, unspecified organism Status: Acute Assessment and Plan: * sepsis criteria met with HR greater than 90, RR greater than 20. No leukocytosis. +hypoxia. * lactic acid: 3.3 -> 1.0 * procalcitonin 0.2 * 30 mL/kg = 2100, given 2L bolus in the ED * suspected source: pneumonia - management as below * continue antibiotics * blood cultures drawn on 10/28 - NGTD * monitor hemodynamic stability (2) Pneumonia: Qualifiers: Laterality: right Lung location: unspecified part of lung Pneumonia type: due to unspecified organism Qualified Code(s): J18.9 - Pneumonia, unspecified organism Code(s): J18.9 - Pneumonia, unspecified organism Status: Acute Assessment and Plan: * CT chest 10/22 with interval increase in the size of a consolidation in the right mid lung, differential includes postobstructive atelectasis, pneumonia or malignancy. PET/CT recommended. * admit CXR with right-sided airspace disease, small right pleural effusion * complicating factors: previous hx of adenocarcinoma of the lung and chronic right-sided pleural effusion * MRSA DNA negative * continue ceftriaxone and azithromycin * supportive care: Mucinex, Tessalon Perles, Tylenol, DuoNebs * new supplemental O2 (3L) to maintain O2 sat greater than 92%, wean as tolerated (3) Tachycardia: Code(s): R00.0 - Tachycardia, unspecified Status: Acute Assessment and Plan: * Patient and daughter states that patient has been dealing with baseline tachycardia for the past several weeks with a baseline heart rate in the 100s * Daughter states that patient has been dealing with recurrent pneumonia infections and this increases patient's baseline heart rate into the 120s + * Cross cover note on 10/29 -HR in the 120s, was given 5 mg IV metoprolol and heart rate improved to 100-110 * Likely secondary to underlying infection, lung cancer * Blood cultures NGTD but HR remains elevated * Will initiate Metoprolol BID, consult cardiology for further recommendations (4) Acute and chronic respiratory failure with hypoxia: Code(s): J96.21 - Acute and chronic respiratory failure with hypoxia Status: Acute Assessment and Plan: * arrived 88% on RA * at baseline requires 2 L nasal cannula at nighttime, now requiring 3 L at all times to maintain an O2 sat greater than 92%. * likely secondary to pneumonia * wean O2 as able * respiratory hygiene, incentive spirometry (5) COPD (chronic obstructive pulmonary disease): Qualifiers: COPD type: unspecified COPD Qualified Code(s): J44.9 - Chronic obstructive pulmonary disease, unspecified Code(s): J44.9 - Chronic obstructive pulmonary disease, unspecified Status: Acute Assessment and Plan: * Sourav FELIZ (6) Chronic anemia: Code(s): D64.9 - Anemia, unspecified Status: Chronic Assessment and Plan: * denies blood in his stool, has been dark but he is on iron * Hgb 7.5 upon admission, previously 10.1 on 07/10/2024 * Hx of chronic anemia of chronic disease * iron and t sat low. * check stool occult * transfuse if <7 * trend H&H * continue iron supplement * 10/30: Hgb 8.2 (7) Type 2 diabetes mellitus: Code(s): E11.9 - Type 2 diabetes mellitus without complications Status: Chronic Assessment and Plan: * A1c 6.4% on 06/11/2024 * hold metformin * hypoglycemia protocol * POC blood glucose ACHS * home medication: Continue Lantus 15 units HS. * low dose SSI (8) Chronic kidney disease, stage 3: Qualifiers: Chronic kidney disease stage 3 subtype: unspecified whether 3a or 3b Qualified Code(s): N18.30 - Chronic kidney disease, stage 3 unspecified Code(s): N18.30 - Chronic kidney disease, stage 3 unspecified Status: Chronic Assessment and Plan: * creatinine 1.21, BUN 23, GFR 57 upon admission * baseline creatinine: 1-1.2 * trend renal function * trend electrolytes, correct as needed (9) Adenocarcinoma, lung: Qualifiers: Laterality: right Qualified Code(s): C34.91 - Malignant neoplasm of unspecified part of right bronchus or lung Code(s): C34.90 - Malignant neoplasm of unspecified part of unspecified bronchus or lung Status: Acute Assessment and Plan: * hx of adenocarcinoma of the lung s/p chemo radiation. Previously required a PleurX for a chronic pleural effusion of the right side. * follows with Tarsha BEJARANO * needs PET scan as outpatient (10) Obstructive sleep apnea: Code(s): G47.33 - Obstructive sleep apnea (adult) (pediatric) Status: Chronic Assessment and Plan: * wears 2L NC at night, currently requiring during daytime hours. Continue supplemental O2 to maintain O2 sat greater than 92%. Wean to baseline nocturnal needs as tolerated. Plan DVT Prophylaxis: scds Code Status: Full code Subjective Date/time seen: 10/30/24 08:05 Interval history: 84 y/o M with PMH of COPD CAD CKD S3, chronic respiratory failure with hypoxia, colon cancer, diabetes, non-small cell lung cancer believed to be in remission, hyperlipidemia, hypertension, thrombocytopenia, chronic anemia, and ROBIN presents here with shortness of breath and cough. 10/30/2024 Patient sitting comfortably in bed at time examination. Blood cultures continue to show no growth. Remains afebrile but WBC up to 10.9 today. Cross cover event note overnight for tachycardia, patient was given 5 mg IV metoprolol which decrease her rate to 100-110. Daughter states that the patient has been dealing with baseline tachycardia for the past several weeks, with baseline HR in the 100s. Will consult cardiology regarding this issue. Review of Systems Review of Systems: All systems reviewed & are unremarkable except as noted in HPI and below Exam Narrative: General: NAD, appears deconditioned Eyes: EOMI ENT: neck supple Cardiovascular: Regular rate and rhythm Respiratory: Clear to auscultation, respirations even and unlabored on 2.5L NC Gastrointestinal: Soft, non tender Genitourinary: no suprapubic tenderness Musculoskeletal: No edema Skin: warm, dry Neuro: Alert. Psych: Mood appropriate Const: General: comfortable and no acute distress Other: , male, elderly, chronically ill-appearing HENMT: Face/Nose/Sinus: Normal nares present Mouth: Yes moist mucous membranes Eyes: General: appearance normal, both eyes and all related structures Sclera: sclerae normal Pupils: Equal, round and reactive pupils present EOM: EOMs intact bilaterally Resp: Effort & Inspection: normal respiratory effort Other: Coarse breath sounds bilaterally, more significant at the bases. Nasal cannula place tolerating well. Cardio: Rate: regular rate Rhythm: regular rhythm Other: +murmur GI: Other: Abdomen soft, nondistended, nontender. Normoactive bowel sounds in all quadrants. Skin: General skin exam: normal color and no rashes or lesions noted Wounds: no wounds Neuro: Cranial nerves: Yes Equal, round and reactive pupils present Speech: normal speech Motor exam (neuro): 5/5 motor strength present throughout Sensory Exam: normal sensation Other: A&O x4 Extrem: General: normal to inspection Psych: Mental Status: mental status grossly normal Affect: normal affect Other: Good insight and judgment, pleasant Objective Data Vital Signs Vital Signs: Vital Signs - 24 hr 10/29/24 08:42 10/29/24 14:00 10/29/24 19:59 Temperature 97.3 F L Pulse Rate 107 H 107 H Respiratory Rate 14 14 Blood Pressure 118/78 Pulse Oximetry 94 96 96 Oxygen Delivery Nasal Cannula Nasal Cannula Oxygen Flow Rate 2.5 4 Fraction of Inspired Oxygen 10/29/24 20:08 10/29/24 21:33 10/29/24 21:35 Temperature 100.9 F H Pulse Rate 128 H 123 H 121 H Respiratory Rate 24 H 18 Blood Pressure 128/63 Pulse Oximetry 94 92 Oxygen Delivery Nasal Cannula Oxygen Flow Rate 4 Fraction of Inspired Oxygen 10/29/24 21:50 10/30/24 00:00 10/30/24 04:00 Temperature Pulse Rate 119 H 104 H 108 H Respiratory Rate 20 Blood Pressure Pulse Oximetry 90 Oxygen Delivery Nasal Cannula Oxygen Flow Rate 4 Fraction of Inspired Oxygen 36 10/30/24 05:52 Temperature 97.6 F Pulse Rate 109 H Respiratory Rate 20 Blood Pressure 102/61 Pulse Oximetry 92 Oxygen Delivery Oxygen Flow Rate Fraction of Inspired Oxygen Intake/Output Intake/Output: Intake & Output 10/27/24 10/28/24 10/29/24 10/30/24 23:59 23:59 23:59 23:59 Intake Total 1930 1400 300 Output Total 300 2225 650 Balance 0150 -107 -350 Meds/Results Medications: Active Medications Generic Name Dose Route Start Last Admin Trade Name Freq PRN Reason Stop Dose Admin Acetaminophen 500 mg 10/28/24 16:19 10/29/24 05:28 Acetaminophen 500 Mg Tablet PO 500 mg Q6H PRN Administration Mild Pain (1-3) or Fever Albuterol/Ipratropium 3 ml 10/28/24 16:19 Ipratropium 0.5 Mg/Albuterol Sulfate 2.5 Mg Ampul.Neb 3 Ml INHALATION Q6HRT PRN Shortness Of Breath Or Wheezing Benzonatate 100 mg 10/28/24 16:19 Benzonatate 100 Mg Capsule PO TID PRN Cough Citalopram Hydrobromide 20 mg 10/29/24 09:00 10/29/24 08:41 Citalopram Hydrobromide 20 Mg Tablet PO 20 mg DAILY JERROD Administration Cyanocobalamin 1,000 mcg 10/29/24 09:00 10/29/24 08:41 Cyanocobalamin 1,000 Mcg Tablet PO 1,000 mcg DAILY JERROD Administration Dextrose 12.5 gm 10/28/24 16:19 Dextrose 50% 25 Gm/50 Ml Syringe IV PUSH PRN PRN Hypoglycemia Protocol Diphenhydramine HCl 12.5 mg 10/29/24 20:16 Diphenhydramine Hcl Elixir 12.5 Mg/5 Ml Udc PO HS PRN Insomnia Ferrous Sulfate 325 mg 10/29/24 12:00 10/29/24 12:34 Ferrous Sulfate [address] BY MOUTH 325 mg DAILY@1200 JERROD Administration Fluticasone/Umeclidinium/Vilanterol 1 puff 10/29/24 08:00 10/29/24 07:44 Fluticasone/Umeclidin/Vilanter 100-62.5-25 Mcg Ellipta INHALATION 1 puff DAILYRT JERROD Administration Glucagon 1 mg 10/28/24 16:19 Glucagon For Inj 1 Mg Vial IM PRN PRN Hypoglycemia Protocol Glucose 15 gm 10/28/24 16:19 Glucose Oral Gel 15 Gm Of Glucse In 37.5 Gm Tube PO PRN PRN Hypoglycemia Protocol Guaifenesin 600 mg 10/28/24 21:00 10/29/24 21:33 Guaifenesin 12 Hr 600 Mg Tabcr PO 600 mg Q12HR JERROD Administration Heparin Sodium (Beef Lung) 50 units 10/29/24 09:00 10/29/24 08:41 Heparin Flush 50 Units/5 Ml Syringe IV PUSH 50 units QAM JERROD Administration Heparin Sodium (Beef Lung) 50 units 10/28/24 21:47 Heparin Flush 50 Units/5 Ml Syringe IV PUSH PRN PRN after intermittent infusion Heparin Sodium (Beef Lung) 50 units 10/28/24 21:47 Heparin Flush 50 Units/5 Ml Syringe IV PUSH PRN PRN after blood draws Heparin Sodium (Porcine) 500 units 10/28/24 21:47 Heparin Sodium Lock Flush 500 Units/5 Ml Syringe IV PUSH PRN PRN see comments below Ceftriaxone Sodium 1 gm/ 50 mls @ 100 mls/hr 10/29/24 14:00 10/29/24 14:39 Sodium Chloride IVPB Infused Q24H JERROD Infusion Azithromycin 500 mg/ Sodium 250 mls @ 250 mls/hr 10/29/24 15:00 10/29/24 15:38 Chloride IVPB 11/01/24 15:59 Infused Q24H JERROD Infusion Dextrose 1,000 mls @ 100 mls/hr 10/28/24 16:19 Dextrose 5% 1,000 Ml IVPB PRN PRN Hypoglycemia Protocol Insulin Aspart 2 - 5 units 10/28/24 17:00 10/30/24 07:57 Insulin Aspart (*Bkc) 100 Units/Ml SUB-Q Not Given TIDWM [facility] Protocol Insulin Glargine 15 units 10/28/24 21:00 10/29/24 22:00 Insulin Glargine (*Bkc) 100 Units/Ml SUB-Q 15 units HS JERROD Administration Levothyroxine Sodium 50 mcg 10/29/24 06:30 10/30/24 05:57 Levothyroxine Sodium 50 Mcg Tablet PO 50 mcg DAILY@0630 JERROD Administration Loratadine 10 mg 10/29/24 09:00 10/29/24 08:41 Loratadine 10 Mg Tablet PO 10 mg QAM JERROD Administration Lorazepam 0.5 mg 10/29/24 09:00 10/29/24 16:57 Lorazepam (*Crx) 0.5 Mg Tablet PO 0.5 mg TID JERROD Administration Morphine Sulfate 2 mg 10/28/24 14:53 Morphine Sulfate (*Crx) 2 Mg/Ml Inj IV PUSH Q2H PRN Pain Rated 7-10 Polyethylene Glycol 17 gm 10/29/24 13:30 10/29/24 14:11 Polyethylene Glycol 3350 17 Gm Powd.Pack PO 17 gm QAM JERROD Administration Rosuvastatin Calcium 20 mg 10/29/24 09:00 10/29/24 08:41 Rosuvastatin 20 Mg Tablet PO 20 mg DAILY JERROD Administration Sodium Chloride 10 ml 10/28/24 22:00 10/30/24 05:33 Central Line Flush IV PUSH 10 ml Q8HR JERROD Administration Tamsulosin HCl 0.4 mg 10/29/24 21:00 10/29/24 21:33 Tamsulosin Hcl 0.4 Mg Capsule PO 0.4 mg HS JERROD Administration Radiology Results: ITS Impressions Chest X-Ray 10/28/24 13:15 Impression: 1: Development of diffuse right-sided airspace disease which may represent pneumonia or less likely asymmetric edema. 2: Small right pleural effusion. Labs Labs: Laboratory Results - last 24 hr 10/29/24 10/29/24 10/29/24 08:06 09:45 11:50 WBC 7.3 RBC 2.88 L Hgb 7.7 L Hct 25.8 L MCV 89.6 MCH 26.7 MCHC 29.8 L RDW 19.4 H Plt Count 163 MPV 9.0 Immature Gran % (Auto) 1.1 H Neut % (Auto) 78.3 H Lymph % (Auto) 10.1 L [place] % (Auto) 9.2 H Eos % (Auto) 1.0 Baso % (Auto) 0.3 Lymph # (Auto) 0.74 L [place] # (Auto) 0.7 H Eos # (Auto) 0.1 Baso # (Auto) 0.0 Abs Immat Gran (auto) 0.08 H Absolute Neuts (auto) 5.7 Absolute Nucleated RBC 0.000 Band Neutrophils % Not Reportable Nucleated RBC % 0.0 Platelet Estimate Adequate Hypochromasia Occasional Anisocytosis 1+ Ovalocytes Occasional Schistocytes None seen Sodium 133 L Potassium 4.2 Chloride 102 Carbon Dioxide 25 Anion Gap 6 BUN 17 Creatinine 1.17 Estim Creat Clear Calc 42 Estimated GFR 60 Glucose 236 H POC Capillary Glucose 160 H 165 H Calcium 8.5 Total Bilirubin 0.3 AST 24 ALT 14 Alkaline Phosphatase 91 Total Protein 6.7 Albumin 3.3 L 10/29/24 10/29/24 10/30/24 17:12 20:10 05:26 WBC 10.9 H RBC 3.09 L Hgb 8.2 L Hct 27.5 L MCV 89.0 MCH 26.5 MCHC 29.8 L RDW 19.4 H Plt Count 205 MPV 9.2 Immature Gran % (Auto) 0.6 H Neut % (Auto) 79.1 H Lymph % (Auto) 11.1 L [place] % (Auto) 8.1 Eos % (Auto) 0.7 Baso % (Auto) 0.4 Lymph # (Auto) 1.21 [place] # (Auto) 0.9 H Eos # (Auto) 0.1 Baso # (Auto) 0.0 Abs Immat Gran (auto) 0.07 H Absolute Neuts (auto) 8.6 H Absolute Nucleated RBC 0.000 Band Neutrophils % Not Reportable Nucleated RBC % 0.0 Platelet Estimate Adequate Hypochromasia 1+ Anisocytosis 1+ Ovalocytes Schistocytes None seen Sodium 134 L Potassium 4.5 Chloride 102 Carbon Dioxide 23 Anion Gap 9 BUN 20 Creatinine 1.23 Estim Creat Clear Calc 40 Estimated GFR 56 L Glucose 176 H POC Capillary Glucose 142 H 158 H Calcium 9.0 Total Bilirubin 0.4 AST 29 ALT 17 Alkaline Phosphatase 113 Total Protein 7.3 Albumin 3.5 10/30/24 07:48 WBC RBC Hgb Hct MCV MCH MCHC RDW Plt Count MPV Immature Gran % (Auto) Neut % (Auto) Lymph % (Auto) [place] % (Auto) Eos % (Auto) Baso % (Auto) Lymph # (Auto) [place] # (Auto) Eos # (Auto) Baso # (Auto) Abs Immat Gran (auto) Absolute Neuts (auto) Absolute Nucleated RBC Band Neutrophils % Nucleated RBC % Platelet Estimate Hypochromasia Anisocytosis Ovalocytes Schistocytes Sodium Potassium Chloride Carbon Dioxide Anion Gap BUN Creatinine Estim Creat Clear Calc Estimated GFR Glucose POC Capillary Glucose 161 H Calcium Total Bilirubin AST ALT Alkaline Phosphatase Total Protein Albumin Quality VTE Prophylaxis VTE prophylaxis: mechanical ordered
[2024-10-30] MEDS: guaiFENesin 12 HR 600 MG TABCR PO ×2 (08:38→20:23)
[2024-10-30] MEDS: CYANOCOBALAMIN 1,000 MCG TABLET 1000 MCG PO (08:38)
[2024-10-30] MEDS: ROSUVASTATIN 20 MG TABLET PO (08:38)
[2024-10-30] MEDS: LORazepam (*CRX) 0.5 MG TABLET PO ×3 (08:38→16:49)
[2024-10-30] MEDS: LORATADINE 10 MG TABLET PO (08:38)
[2024-10-30] MEDS: CITALOPRAM HYDROBROMIDE 20 MG TABLET PO (08:47)
[2024-10-30] MEDS: FLUTICASONE/UMECLIDIN/VILANTER 100-62.5-25 MCG ELLIPTA 1 PUFF INHALATION (09:39)
[2024-10-30] MEDS: METOPROLOL TARTRATE 12.5 MG TABLET PO ×2 (12:10→20:23)
[2024-10-30] MEDS: FERROUS SULFATE 325 MG TABLET DR BY MOUTH (12:10)
[2024-10-30] MEDS: INSULIN ASPART (*BKC) 100 UNITS/ML SUB-Q (12:44)
[2024-10-30] MEDS: cefTRIAXone 1 GM in SODIUM CHLORIDE 0.9% IV 50 ML 100 ML IVPB (14:47)
[2024-10-30] MEDS: AZITHROMYCIN IV 500 MG in SODIUM CHLORIDE 0.9% IV 250 ML IVPB (15:24)
--- NOTE | 2024-10-30 15:58 | PM.CNCAR ---
Assessment and Plan Assessment and plan (1) Tachycardia: Code(s): R00.0 - Tachycardia, unspecified Status: Acute Assessment and Plan: He has sinus tachycardia which he is asymptomatic with it and is not causing any hemodynamic compromise. No specific treatment for this aside treating underlying pneumonia and sepsis. Ensure adequate hydration. No specific cardiac recommendations to make at this time. Cardiology will sign off. History of Present Illness History of Present Illness Consult date/time: 10/30/24 15:58 Requesting physician: Lazaro Prieto PA-C Consult reason: Other (tachycardia) Reason For Visit: pneumonia,anemia Narrative: This is an 84-year-old man who presents to the hospital with complaints of shortness of breath and cough. He has been admitted to the hospital for treatment of pneumonia and sepsis. Cardiology is consulted for tachycardia. At the time of my evaluation, patient is in sinus rhythm with a heart rate 95-100 beats per minute. He denies having any palpitations. He was asleep when I entered the room and is rather groggy during my evaluation but appears comfortable and not in any acute distress. Review of Systems Review of Systems: All systems reviewed & are unremarkable except as noted in HPI and below PMFSH Past Medical History Medical History Chronic obstructive pulmonary disease Chronic kidney disease, stage 3 Chronic respiratory failure with hypoxia Colon cancer (2014) Type 2 diabetes mellitus Non-small cell lung cancer (09/2022) Arising in the right lung status post chemo radiation, currently on immunotherapy. Hyperlipidemia Hypertension Thrombocytopenia Chronic anemia Obstructive sleep apnea Tobacco abuse Surgical History Surgical History History of skin graft History of bilateral cataract extraction History of cholecystectomy (2002) History of colon resection (2014) For colon cancer. Family History Family History Father Depression Social History Social History Social History: Surrogate medical decision maker: Mallorie Watson, spouse. Code status: Full code. Smoking packs per day: 1 Smoking cigarettes per day: 20.0 Years smoked: 60 Smoking pack-years: 60.00 Smoking status: Former smoker Tobacco type: cigarettes Alcohol intake: never Substance use: never Substance use type: does not use Do You Feel Safe in your Home?: Yes Lack of Transportation: No Lack of Food: Never True Current Housing: I Have Housing Concerned About Future Housing: No Difficulty Paying Gas/Electric Bills: No Difficulty Paying for Meds: No Currently Unemployed: No Education: High School Diploma/GED Difficulty w/ Childcare or Family Care: No Living arrangements: with family Occupation/Education: retired Spiritual care concerns: No Meds Home Medications and Allergies Home Medications ?Medication ?Instructions ?Recorded ?Confirmed ?Type citalopram 20 mg tablet 20 mg PO DAILY 09/06/22 10/28/24 History lorazepam 0.5 mg tablet 0.5 mg PO TID 09/06/22 10/28/24 History metformin 1,000 mg tablet 1,000 mg PO BID 09/06/22 10/28/24 History rosuvastatin 20 mg tablet 20 mg PO DAILY 09/06/22 10/28/24 History insulin degludec 100 unit/mL (3 15 unit (0.15 mL) subcut HS #15 mL 11/19/23 10/28/24 Rx mL) subcutaneous pen (Tresiba FlexTouch U-100 insulin) fluticasone fur. 100 mcg-umeclid 1 inh inhalation Q24H 1 month #60 07/10/24 10/28/24 Rx 62.5 mcg-vilant 25 mcg ea inhalat.powder (Trelegy Ellipta) cetirizine 10 mg tablet (Zyrtec) 10 mg PO DAILY 10/28/24 10/28/24 History cyanocobalamin (vitamin B-12) 1,000 mcg PO DAILY 10/28/24 10/28/24 History 1,000 mcg tablet ferrous sulfate 325 mg (65 mg 325 mg PO DAILY 10/28/24 10/28/24 History iron) tablet (FeroSul) levothyroxine 50 mcg tablet 50 mcg PO DAILY 10/28/24 10/28/24 History tamsulosin 0.4 mg capsule 0.4 mg PO HS 10/28/24 10/28/24 History diphenhydramine 25 1 tablet PO HS PRN pain 10/29/24 10/29/24 History mg-acetaminophen 500 mg tablet (Tylenol PM Extra Strength) Allergies Allergy/AdvReac Type Severity Reaction Status Date / Time codeine AdvReac Unknown Verified 10/28/24 16:35 niacin AdvReac Flushing Verified 10/28/24 16:35 Vital Signs Vital Signs - 24 hr 10/29/24 19:59 10/29/24 20:08 10/29/24 21:33 Temperature 38.3 C H Pulse Rate 107 H 128 H 123 H Respiratory Rate 14 24 H Blood Pressure 128/63 Pulse Oximetry 96 94 Oxygen Delivery Nasal Cannula Oxygen Flow Rate 4 Fraction of Inspired Oxygen 10/29/24 21:35 10/29/24 21:50 10/30/24 00:00 Temperature Pulse Rate 121 H 119 H 104 H Respiratory Rate 18 20 Blood Pressure Pulse Oximetry 92 90 Oxygen Delivery Nasal Cannula Nasal Cannula Oxygen Flow Rate 4 4 Fraction of Inspired Oxygen 36 10/30/24 04:00 10/30/24 05:52 10/30/24 08:05 Temperature 36.4 C Pulse Rate 108 H 109 H 111 H Respiratory Rate 20 Blood Pressure 102/61 Pulse Oximetry 92 Oxygen Delivery Oxygen Flow Rate Fraction of Inspired Oxygen 10/30/24 08:40 10/30/24 09:40 10/30/24 10:38 Temperature Pulse Rate 100 Respiratory Rate 20 Blood Pressure Pulse Oximetry 96 96 Oxygen Delivery Nasal Cannula Nasal Cannula Nasal Cannula Oxygen Flow Rate 4 4 4 Fraction of Inspired Oxygen 36 10/30/24 10:43 10/30/24 10:44 10/30/24 11:12 Temperature Pulse Rate 127 H 140 H 114 H Respiratory Rate Blood Pressure Pulse Oximetry Oxygen Delivery Oxygen Flow Rate Fraction of Inspired Oxygen 10/30/24 12:06 10/30/24 12:10 10/30/24 14:00 Temperature 36.4 C Pulse Rate 115 H 114 H 105 H Respiratory Rate 18 Blood Pressure 106/60 Pulse Oximetry 98 Oxygen Delivery Oxygen Flow Rate Fraction of Inspired Oxygen 10/30/24 15:36 Temperature Pulse Rate Respiratory Rate Blood Pressure Pulse Oximetry 94 Oxygen Delivery Nasal Cannula Oxygen Flow Rate 3 Fraction of Inspired Oxygen Exam Const: General: comfortable, no acute distress and alert Orientation/consciousness: patient oriented x3 Other: Chronically ill-appearing HENMT: Head: normal to inspection Eyes: General: appearance normal, both eyes and all related structures Pupils: Equal, round and reactive pupils present Neck: Neck: normal visual inspection, supple and no JVD Carotids: normal carotid upstroke Chest: Other: Port noted upper left chest. Resp: Effort & Inspection: normal respiratory effort Auscultation: crackles and diminished lung sounds Cardio: Rate: regular rate Rhythm: regular rhythm Heart sounds: S1 normal heart sound present, S2 normal heart sound present and no murmurs GI: Auscultation: normal bowel sounds Skin: General skin exam: normal color Neuro: General: patient oriented x3 Cranial nerves: Yes Equal, round and reactive pupils present Extrem: General: normal to inspection Psych: Appearance: grossly normal Mental Status: mental status grossly normal Results Labs and Meds 10/31/24 08:32 10/31/24 08:32 Lab results: Cardiac Enzymes 10/30/24 Range/Units 05:26 AST 29 (17-59) U/L CBC 10/30/24 Range/Units 05:26 WBC 10.9 H (4.5-10.0) K/mm3 RBC 3.09 L (4.6-6.20) M/mm3 Hgb 8.2 L (14.0-18.0) g/dL Hct 27.5 L (42.0-52.0) % Plt Count 205 (150-375) k/mm3 Lymph # (Auto) 1.21 (0.9-3.2) K/mm3 [place] # (Auto) 0.9 H (0.1-0.6) K/mm3 Eos # (Auto) 0.1 (0-0.3) K/mm3 Baso # (Auto) 0.0 (0.0-0.1) K/mm3 Comprehensive Metabolic Panel 10/30/24 Range/Units 05:26 Sodium 134 L (137-145) mmol/L Potassium 4.5 (3.4-5.0) mmol/L Chloride 102 (98-107) mmol/L Carbon Dioxide 23 (22-30) mmol/L BUN 20 (9-20) mg/dL Creatinine 1.23 (0.7-1.3) mg/dL Glucose 176 H (65-110) mg/dL Calcium 9.0 (8.4-10.2) mg/dL AST 29 (17-59) U/L ALT 17 (6-50) U/L Alkaline Phosphatase 113 (38-126) U/L Total Protein 7.3 (6.3-8.2) g/dL Albumin 3.5 (3.5-5.1) g/dL Intake and Output 10/29/24 10/30/24 10/30/24 23:59 07:59 15:59 Intake Total 220 300 480 Output Total 325 650 300 Balance -105 -350 180 Intake: Oral 220 300 480 Output: Urine 325 650 300
[2024-10-30] MEDS: TAMSULOSIN HCL 0.4 MG CAPSULE PO (20:23)
[2024-10-30] MEDS: ACETAMINOPHEN 500 MG TABLET PO (20:25)
[2024-10-30] MEDS: INSULIN GLARGINE (*BKC) 100 UNITS/ML 15 UNITS SUB-Q (20:35)
[2024-10-31] VITALS (15 sets, daily range): BP systolic 105–110; BP diastolic 56–70; PULSE 11–129; RESP 18–24; TEMP 36.1–37.7; O2SAT 94–98
[2024-10-31] MEDS: ACETAMINOPHEN 500 MG TABLET PO ×2 (04:44→20:24)
[2024-10-31] MEDS: CENTRAL LINE FLUSH 10 ML IV PUSH ×3 (05:35→23:41)
[2024-10-31] MEDS: LEVOTHYROXINE SODIUM 50 MCG TABLET PO (05:35)
--- NOTE | 2024-10-31 08:04 | P.PNIM_ITS ---
Progress Note: A&P Assessment and Plan (1) Sepsis: Qualifiers: Acute respiratory failure type: with hypoxia Sepsis acute organ dysfunction status: with acute organ dysfunction Sepsis type: sepsis during labor Severe sepsis acute organ dysfunction type: acute respiratory failure Severe sepsis shock status: without septic shock Qualified Code(s): O75.3 - Other infection during labor; A41.9 - Sepsis, unspecified organism; J96.01 - Acute respiratory failure with hypoxia; R65.20 - Severe sepsis without septic shock Code(s): A41.9 - Sepsis, unspecified organism Status: Acute Assessment and Plan: * sepsis criteria met with HR greater than 90, RR greater than 20. No leukocytosis. +hypoxia. * lactic acid: 3.3 -> 1.0 * procalcitonin 0.2 * 30 mL/kg = 2100, given 2L bolus in the ED * suspected source: pneumonia - management as below * continue antibiotics * blood cultures drawn on 10/28 - NGTD * monitor hemodynamic stability (2) Pneumonia: Qualifiers: Laterality: right Lung location: unspecified part of lung Pneumonia type: due to unspecified organism Qualified Code(s): J18.9 - Pneumonia, unspecified organism Code(s): J18.9 - Pneumonia, unspecified organism Status: Acute Assessment and Plan: * CT chest 10/22 with interval increase in the size of a consolidation in the right mid lung, differential includes postobstructive atelectasis, pneumonia or malignancy. PET/CT recommended. * admit CXR with right-sided airspace disease, small right pleural effusion * complicating factors: previous hx of adenocarcinoma of the lung and chronic right-sided pleural effusion * MRSA DNA negative * continue ceftriaxone and azithromycin * supportive care: Mucinex, Tessalon Perles, Tylenol, DuoNebs * new supplemental O2 (3L) to maintain O2 sat greater than 92%, wean as tolerated * Will attempt to transition to oral coverage of antibiotics tomorrow in preparation for discharge (3) Tachycardia: Code(s): R00.0 - Tachycardia, unspecified Status: Acute Assessment and Plan: * Patient and daughter states that patient has been dealing with baseline tachycardia for the past several weeks with a baseline heart rate in the 100s * Daughter states that patient has been dealing with recurrent pneumonia infections and this increases patient's baseline heart rate into the 120s + * Cross cover note on 10/29 - HR in the 120s, was given 5 mg IV metoprolol and heart rate improved to 100-110 * Likely secondary to underlying infection, lung cancer * Blood cultures NGTD but HR remains elevated * Will initiate Metoprolol BID, consult cardiology for further recommendations * Cardio consult - appreciate further recommendations * No specific treatment for this aside treating underlying pneumonia and sepsis. * Cardiology signs off (4) Acute and chronic respiratory failure with hypoxia: Code(s): J96.21 - Acute and chronic respiratory failure with hypoxia Status: Acute Assessment and Plan: * arrived 88% on RA * at baseline requires 2 L nasal cannula at nighttime, now requiring 3 L at all times to maintain an O2 sat greater than 92%. * likely secondary to pneumonia * wean O2 as able * respiratory hygiene, incentive spirometry * 10/31: O2 97% on 2L (5) Adenocarcinoma, lung: Qualifiers: Laterality: right Qualified Code(s): C34.91 - Malignant neoplasm of unspecified part of right bronchus or lung Code(s): C34.90 - Malignant neoplasm of unspecified part of unspecified bronchus or lung Status: Acute Assessment and Plan: * hx of adenocarcinoma of the lung s/p chemo radiation. Previously required a PleurX for a chronic pleural effusion of the right side. * follows with Tarsha BEJARANO * needs PET scan as outpatient * Heme/onc consult to assess findings on CT chest (6) COPD (chronic obstructive pulmonary disease): Qualifiers: COPD type: unspecified COPD Qualified Code(s): J44.9 - Chronic obstructive pulmonary disease, unspecified Code(s): J44.9 - Chronic obstructive pulmonary disease, unspecified Status: Acute Assessment and Plan: * Sourav PRN (7) Chronic anemia: Code(s): D64.9 - Anemia, unspecified Status: Chronic Assessment and Plan: * denies blood in his stool, has been dark but he is on iron * Hgb 7.5 upon admission, previously 10.1 on 07/10/2024 * Hx of chronic anemia of chronic disease * iron and t sat low. * check stool occult * transfuse if <7 * trend H&H * continue iron supplement * 10/31: Hgb 7.4 (8) Type 2 diabetes mellitus: Code(s): E11.9 - Type 2 diabetes mellitus without complications Status: Chronic Assessment and Plan: * A1c 6.4% on 06/11/2024 * hold metformin * hypoglycemia protocol * POC blood glucose ACHS * home medication: Continue Lantus 15 units HS. * low dose SSI (9) Chronic kidney disease, stage 3: Qualifiers: Chronic kidney disease stage 3 subtype: unspecified whether 3a or 3b Qualified Code(s): N18.30 - Chronic kidney disease, stage 3 unspecified Code(s): N18.30 - Chronic kidney disease, stage 3 unspecified Status: Chronic Assessment and Plan: * creatinine 1.21, BUN 23, GFR 57 upon admission * baseline creatinine: 1-1.2 * trend renal function * trend electrolytes, correct as needed (10) Obstructive sleep apnea: Code(s): G47.33 - Obstructive sleep apnea (adult) (pediatric) Status: Chronic Assessment and Plan: * wears 2L NC at night, currently requiring during daytime hours. Continue supplemental O2 to maintain O2 sat greater than 92%. Wean to baseline nocturnal needs as tolerated. Plan DVT Prophylaxis: scds Code Status: Full code Subjective Date/time seen: 10/31/24 08:04 Interval history: 84 y/o M with PMH of COPD CAD CKD S3, chronic respiratory failure with hypoxia, colon cancer, diabetes, non-small cell lung cancer believed to be in remission, hyperlipidemia, hypertension, thrombocytopenia, chronic anemia, and ROBIN presents here with shortness of breath and cough. 10/31/2024 Patient sitting comfortably in bed at time examination. Patient states that he feels much better today. Still some slight SOB but denies any chest pain, N/V, abdominal pain. Still at baseline O2 requirement. Plan on continuing IV Antibiotics and will continue to monitor clinical response. Heme/onc consult pending for further evaluation of pulmonary findings/presence of non-small cell lung cancer. Overall patient states he feels better today and family concurs that the patient seems much more like himself. Review of Systems Review of Systems: All systems reviewed & are unremarkable except as noted in HPI and below Exam Narrative: General: NAD, appears deconditioned Eyes: EOMI ENT: neck supple Cardiovascular: Regular rate and rhythm Respiratory: Clear to auscultation, respirations even and unlabored on 2.5L NC Gastrointestinal: Soft, non tender Genitourinary: no suprapubic tenderness Musculoskeletal: No edema Skin: warm, dry Neuro: Alert. Psych: Mood appropriate Const: General: comfortable and no acute distress Other: , male, elderly, chronically ill-appearing HENMT: Face/Nose/Sinus: Normal nares present Mouth: Yes moist mucous membranes Eyes: General: appearance normal, both eyes and all related structures Sclera: sclerae normal Pupils: Equal, round and reactive pupils present EOM: EOMs intact bilaterally Resp: Effort & Inspection: normal respiratory effort Other: Coarse breath sounds bilaterally, more significant at the bases. Nasal cannula place tolerating well. Cardio: Rate: regular rate Rhythm: regular rhythm Other: +murmur GI: Other: Abdomen soft, nondistended, nontender. Normoactive bowel sounds in all quadrants. Skin: General skin exam: normal color and no rashes or lesions noted Wounds: no wounds Neuro: Cranial nerves: Yes Equal, round and reactive pupils present Speech: normal speech Motor exam (neuro): 5/5 motor strength present throughout Sensory Exam: normal sensation Other: A&O x4 Extrem: General: normal to inspection Psych: Mental Status: mental status grossly normal Affect: normal affect Other: Good insight and judgment, pleasant Objective Data Vital Signs Vital Signs: Vital Signs - 24 hr 10/30/24 08:05 10/30/24 08:40 10/30/24 09:40 Temperature Pulse Rate 111 H 100 Respiratory Rate 20 Blood Pressure Pulse Oximetry 96 96 Oxygen Delivery Nasal Cannula Nasal Cannula Oxygen Flow Rate 4 4 Fraction of Inspired Oxygen 36 10/30/24 10:38 10/30/24 10:43 10/30/24 10:44 Temperature Pulse Rate 127 H 140 H Respiratory Rate Blood Pressure Pulse Oximetry Oxygen Delivery Nasal Cannula Oxygen Flow Rate 4 Fraction of Inspired Oxygen 10/30/24 11:12 10/30/24 12:06 10/30/24 12:10 Temperature Pulse Rate 114 H 115 H 114 H Respiratory Rate Blood Pressure Pulse Oximetry Oxygen Delivery Oxygen Flow Rate Fraction of Inspired Oxygen 10/30/24 14:00 10/30/24 15:36 10/30/24 16:05 Temperature 97.6 F Pulse Rate 105 H 105 H Respiratory Rate 18 Blood Pressure 106/60 Pulse Oximetry 98 94 Oxygen Delivery Nasal Cannula Oxygen Flow Rate 3 Fraction of Inspired Oxygen 10/30/24 16:25 10/30/24 20:00 10/30/24 20:00 Temperature Pulse Rate 125 H 125 H Respiratory Rate 18 Blood Pressure Pulse Oximetry 94 94 Oxygen Delivery Nasal Cannula Nasal Cannula Oxygen Flow Rate 2 3 Fraction of Inspired Oxygen 36 10/30/24 20:23 10/30/24 20:25 10/30/24 21:54 Temperature 100.0 F H Pulse Rate 125 H Respiratory Rate Blood Pressure Pulse Oximetry 94 Oxygen Delivery Nasal Cannula Oxygen Flow Rate 2 Fraction of Inspired Oxygen 10/30/24 22:56 10/30/24 23:00 10/30/24 23:23 Temperature 98.7 F 98.7 F Pulse Rate 94 Respiratory Rate 18 Blood Pressure Pulse Oximetry 95 Oxygen Delivery Oxygen Flow Rate Fraction of Inspired Oxygen 10/31/24 00:00 10/31/24 04:00 10/31/24 04:37 Temperature 97 F L Pulse Rate 94 95 95 Respiratory Rate 18 Blood Pressure 105/58 L Pulse Oximetry 97 Oxygen Delivery Oxygen Flow Rate Fraction of Inspired Oxygen Intake/Output Intake/Output: Intake & Output 10/28/24 10/29/24 10/30/24 10/31/24 23:59 23:59 23:59 23:59 Intake Total 1930 1400 1560 150 Output Total 300 2225 1050 400 Balance 1630 825 510 -250 Meds/Results Medications: Active Medications Generic Name Dose Route Start Last Admin Trade Name Freq PRN Reason Stop Dose Admin Acetaminophen 500 mg 10/28/24 16:19 10/31/24 04:44 Acetaminophen 500 Mg Tablet PO 500 mg Q6H PRN Administration Mild Pain (1-3) or Fever Albuterol/Ipratropium 3 ml 10/28/24 16:19 Ipratropium 0.5 Mg/Albuterol Sulfate 2.5 Mg Ampul.Neb 3 Ml INHALATION Q6HRT PRN Shortness Of Breath Or Wheezing Benzonatate 100 mg 10/28/24 16:19 Benzonatate 100 Mg Capsule PO TID PRN Cough Citalopram Hydrobromide 20 mg 10/29/24 09:00 10/30/24 08:47 Citalopram Hydrobromide 20 Mg Tablet PO 20 mg DAILY JERROD Administration Cyanocobalamin 1,000 mcg 10/29/24 09:00 10/30/24 08:38 Cyanocobalamin 1,000 Mcg Tablet PO 1,000 mcg DAILY JERROD Administration Dextrose 12.5 gm 10/28/24 16:19 Dextrose 50% 25 Gm/50 Ml Syringe IV PUSH PRN PRN Hypoglycemia Protocol Diphenhydramine HCl 12.5 mg 10/29/24 20:16 Diphenhydramine Hcl Elixir 12.5 Mg/5 Ml Udc PO HS PRN Insomnia Ferrous Sulfate 325 mg 10/29/24 12:00 10/30/24 12:10 Ferrous Sulfate [address] BY MOUTH 325 mg DAILY@1200 JERROD Administration Fluticasone/Umeclidinium/Vilanterol 1 puff 10/29/24 08:00 10/30/24 09:39 Fluticasone/Umeclidin/Vilanter 100-62.5-25 Mcg Ellipta INHALATION 1 puff DAILYRT JERROD Administration Glucagon 1 mg 10/28/24 16:19 Glucagon For Inj 1 Mg Vial IM PRN PRN Hypoglycemia Protocol Glucose 15 gm 10/28/24 16:19 Glucose Oral Gel 15 Gm Of Glucse In 37.5 Gm Tube PO PRN PRN Hypoglycemia Protocol Guaifenesin 600 mg 10/28/24 21:00 10/30/24 20:23 Guaifenesin 12 Hr 600 Mg Tabcr PO 600 mg Q12HR JERROD Administration Heparin Sodium (Beef Lung) 50 units 10/29/24 09:00 10/30/24 08:38 Heparin Flush 50 Units/5 Ml Syringe IV PUSH 50 units QAM JERROD Administration Heparin Sodium (Beef Lung) 50 units 10/28/24 21:47 10/30/24 16:49 Heparin Flush 50 Units/5 Ml Syringe IV PUSH 50 units PRN PRN Administration after intermittent infusion Heparin Sodium (Beef Lung) 50 units 10/28/24 21:47 Heparin Flush 50 Units/5 Ml Syringe IV PUSH PRN PRN after blood draws Heparin Sodium (Porcine) 500 units 10/28/24 21:47 Heparin Sodium Lock Flush 500 Units/5 Ml Syringe IV PUSH PRN PRN see comments below Ceftriaxone Sodium 1 gm/ 50 mls @ 100 mls/hr 10/29/24 14:00 10/30/24 15:17 Sodium Chloride IVPB Infused Q24H JERROD Infusion Azithromycin 500 mg/ Sodium 250 mls @ 250 mls/hr 10/29/24 15:00 10/30/24 16:24 Chloride IVPB 11/01/24 15:59 Infused Q24H JERROD Infusion Dextrose 1,000 mls @ 100 mls/hr 10/28/24 16:19 Dextrose 5% 1,000 Ml IVPB PRN PRN Hypoglycemia Protocol Insulin Aspart 2 - 5 units 10/28/24 17:00 10/30/24 17:45 Insulin Aspart (*Bkc) 100 Units/Ml SUB-Q Not Given TIDWM JERROD Protocol Insulin Glargine 15 units 10/28/24 21:00 10/30/24 20:35 Insulin Glargine (*Bkc) 100 Units/Ml SUB-Q 15 units HS JERROD Administration Levothyroxine Sodium 50 mcg 10/29/24 06:30 10/31/24 05:35 Levothyroxine Sodium 50 Mcg Tablet PO 50 mcg DAILY@0630 JERROD Administration Loratadine 10 mg 10/29/24 09:00 10/30/24 08:38 Loratadine 10 Mg Tablet PO 10 mg QAM JERROD Administration Lorazepam 0.5 mg 10/29/24 09:00 10/30/24 16:49 Lorazepam (*Crx) 0.5 Mg Tablet PO 0.5 mg TID JERROD Administration Metoprolol Tartrate 12.5 mg 10/30/24 11:05 10/30/24 20:23 Metoprolol Tartrate 12.5 Mg Tablet PO 12.5 mg Q12HR JERROD Administration Morphine Sulfate 2 mg 10/28/24 14:53 Morphine Sulfate (*Crx) 2 Mg/Ml Inj IV PUSH Q2H PRN Pain Rated 7-10 Polyethylene Glycol 17 gm 10/29/24 13:30 10/30/24 08:38 Polyethylene Glycol 3350 17 Gm Powd.Pack PO 17 gm QAM JERROD Administration Rosuvastatin Calcium 20 mg 10/29/24 09:00 10/30/24 08:38 Rosuvastatin 20 Mg Tablet PO 20 mg DAILY JERROD Administration Sodium Chloride 10 ml 10/28/24 22:00 10/31/24 05:35 Central Line Flush IV PUSH 10 ml Q8HR JERROD Administration Tamsulosin HCl 0.4 mg 10/29/24 21:00 10/30/24 20:23 Tamsulosin Hcl 0.4 Mg Capsule PO 0.4 mg HS JERROD Administration Radiology Results: ITS Impressions Chest X-Ray 10/31/24 07:13 Impression: 1: Asymmetric right-sided consolidation, consistent with pneumonia. 2: Small right pleural effusion. Labs Labs: Laboratory Results - last 24 hr 10/30/24 10/30/24 10/30/24 11:34 16:56 20:34 POC Capillary Glucose 224 H 126 H 179 H Quality VTE Prophylaxis VTE prophylaxis: mechanical ordered
[2024-10-31 08:37] LABS: Hematocrit 25.2 % (42.0-52.0); Hemoglobin 7.4 g/dL (14.0-18.0); Immature Granulocyte Percent A 1.3 % (0-0.5); Lymphocytes Absolute Auto 0.53 K/mm3 (0.9-3.2); Mean Corpuscular HGB Conc 29.4 g/dl (32-36); Mean Corpuscular Hemoglobin 26.3 pg (26-34); Mean Corpuscular Volume 89.7 fl (80-100); Nucleated Red Blood Cells Absolute Auto 0.000 K/mm3 (0.0-0.012); Nucleated Red Blood Cells Perc 0.0 % (0.0-0.2); Platelet Count Result 146 k/mm3 (150-375); Red Blood Count 2.81 M/mm3 (4.6-6.20); White Blood Count 7.2 K/mm3 (4.5-10.0)
[2024-10-31 08:58] LABS: Anisocytosis 1+; Hypochromasia 1+; Schistocytes None Seen
[2024-10-31] MEDS: CYANOCOBALAMIN 1,000 MCG TABLET 1000 MCG PO (09:00)
[2024-10-31] MEDS: FLUTICASONE/UMECLIDIN/VILANTER 100-62.5-25 MCG ELLIPTA 1 PUFF INHALATION (09:00)
[2024-10-31] MEDS: ROSUVASTATIN 20 MG TABLET PO (09:00)
[2024-10-31] MEDS: METOPROLOL TARTRATE 12.5 MG TABLET PO ×2 (09:01→20:23)
[2024-10-31] MEDS: guaiFENesin 12 HR 600 MG TABCR PO ×2 (09:02→20:23)
[2024-10-31] MEDS: BENZONATATE 100 MG CAPSULE PO (09:02)
[2024-10-31] MEDS: CITALOPRAM HYDROBROMIDE 20 MG TABLET PO (09:02)
[2024-10-31] MEDS: LORATADINE 10 MG TABLET PO (09:02)
[2024-10-31 09:05] LABS: Alanine Aminotransferase 29 U/L (6-50); Albumin Level 3.2 g/dL (3.5-5.1); Alkaline Phosphatase 117 U/L (38-126); Anion Gap 7 mmol/L (4-12); Aspartate Amino Transferase 42 U/L (17-59); Bilirubin,Total 0.3 mg/dL (0.2-1.3); Blood Urea Nitrogen 26 mg/dL (9-20); Calcium 8.8 mg/dL (8.4-10.2); Carbon Dioxide 25 mmol/L (22-30); Chloride 105 mmol/L (98-107); Estimated CRCL calculation 36 ml/min; Estimated Glomerular Filt Rate 49; Glucose 147 mg/dL (65-110); Potassium 4.4 mmol/L (3.4-5.0); Sodium 137 mmol/L (137-145); Total Protein 6.8 g/dL (6.3-8.2)
[2024-10-31] MEDS: FERROUS SULFATE 325 MG TABLET DR BY MOUTH (12:48)
[2024-10-31] MEDS: INSULIN ASPART (*BKC) 100 UNITS/ML SUB-Q (12:48)
[2024-10-31] MEDS: cefTRIAXone 1 GM in SODIUM CHLORIDE 0.9% IV 50 ML 100 ML IVPB (14:42)
[2024-10-31] MEDS: AZITHROMYCIN IV 500 MG in SODIUM CHLORIDE 0.9% IV 250 ML IVPB (16:04)
[2024-10-31] MEDS: BISACODYL 10 MG SUPPOSITORY RECTAL (17:08)
--- NOTE | 2024-10-31 18:06 | WPDONCCN ---
Assessment and Plan Assessment and plan (1) Non-small cell lung cancer: Onset Date: 09/2022 Code(s): C34.90 - Malignant neoplasm of unspecified part of unspecified bronchus or lung Status: Acute Assessment and Plan: Patient was diagnosed with stage III non-small cell lung cancer adenocarcinoma histology in September 2022 status post concurrent chemoradiation therapy with carboplatin and Alimta completed January 2023. He was started on maintenance treatment with durvalumab but could not tolerate it and discontinued in October 2023. His last follow-up was in July of 2024. Events noted. He was admitted to the hospital with shortness of breath and tiredness and fatigue. CT scan showed interval increase consolidation in the right mid lung extending from right hilum to the pleura measures 4.4 x 3.5 cm compared to 1.1 x 1.3 cm. This could very well be infection like pneumonia and atelectasis versus possibility of malignancy. I will order the PET scan which is already schedule. Patient will follow-up with me after the PET scan as an outpatient. Further management will be based on the PET scan findings and patient wishes. (2) Anemia: Code(s): D64.9 - Anemia, unspecified Status: Acute Assessment and Plan: Anemia is multifactorial secondary to renal insufficiency and iron deficiency. There is a possibility of bone marrow disorders as well. I will order iron infusion. Will consider Procrit injection after correction of iron deficiency if he remains anemic. No need for bone marrow biopsy testing at this time. He will follow-up in the office. HPI Data of Consult Date/Time: 10/31/24 18:06 Requesting Physician: Arthur Gibson MD Primary Care Provider: Silvio DuttonMD Consult Narrative Narrative: Michele Watson is a 84 year old male with history of stage III unresectable non-small cell lung cancer adenocarcinoma diagnosed in September 2022 status post concurrent chemoradiation therapy with carboplatin and Alimta and radiation therapy completed December 2022. He was started on maintenance treatment with durvalumab but could not tolerated and then discontinued in October 2023. He was last seen in the office in July of 2024. Patient also has history of chronic kidney stage 3 disease, COPD and coronary artery disease came into the hospital with shortness of breath and cough. Labs showed hemoglobin of 7.4. Platelets [id number]. Creatinine 1.3 with GFR of 49. Iron was low at 22 with iron saturation of 11%. B12 was normal. CT chest done on October 23 showed interval increase in size of the consolidation in the right mid lung extending into the right hilum to the pleura measures 4.4 x 3.5 cm compared to 1.1 x 1.3 cm. This findings are concerning for pneumonia versus malignancy. There was small right-sided pleural effusion. Review of Systems Review of Systems: Twelve point review of system was reviewed [facility] Past Medical History Medical History Chronic obstructive pulmonary disease Chronic kidney disease, stage 3 Chronic respiratory failure with hypoxia Colon cancer (2014) Type 2 diabetes mellitus Non-small cell lung cancer (09/2022) Arising in the right lung status post chemo radiation, currently on immunotherapy. Hyperlipidemia Hypertension Thrombocytopenia Chronic anemia Obstructive sleep apnea Tobacco abuse Surgical History Surgical History History of skin graft History of bilateral cataract extraction History of cholecystectomy (2002) History of colon resection (2014) For colon cancer. Family History Family History Father Depression Social History Social History Social History: Surrogate medical decision maker: Mallorie Watson, spouse. Code status: Full code. Smoking packs per day: 1 Smoking cigarettes per day: 20.0 Years smoked: 60 Smoking pack-years: 60.00 Smoking status: Former smoker Tobacco type: cigarettes Alcohol intake: never Substance use: never Substance use type: does not use Do You Feel Safe in your Home?: Yes Lack of Transportation: No Lack of Food: Never True Current Housing: I Have Housing Concerned About Future Housing: No Difficulty Paying Gas/Electric Bills: No Difficulty Paying for Meds: No Currently Unemployed: No Education: High School Diploma/GED Difficulty w/ Childcare or Family Care: No Living arrangements: with family Occupation/Education: retired Spiritual care concerns: No Meds Home Medications and Allergies Home Medications ?Medication ?Instructions ?Recorded ?Confirmed ?Type citalopram 20 mg tablet 20 mg PO DAILY 09/06/22 10/28/24 History lorazepam 0.5 mg tablet 0.5 mg PO TID 09/06/22 10/28/24 History metformin 1,000 mg tablet 1,000 mg PO BID 09/06/22 10/28/24 History rosuvastatin 20 mg tablet 20 mg PO DAILY 09/06/22 10/28/24 History insulin degludec 100 unit/mL (3 15 unit (0.15 mL) subcut HS #15 mL 11/19/23 10/28/24 Rx mL) subcutaneous pen (Tresiba FlexTouch U-100 insulin) fluticasone fur. 100 mcg-umeclid 1 inh inhalation Q24H 1 month #60 07/10/24 10/28/24 Rx 62.5 mcg-vilant 25 mcg ea inhalat.powder (Trelegy Ellipta) cetirizine 10 mg tablet (Zyrtec) 10 mg PO DAILY 10/28/24 10/28/24 History cyanocobalamin (vitamin B-12) 1,000 mcg PO DAILY 10/28/24 10/28/24 History 1,000 mcg tablet ferrous sulfate 325 mg (65 mg 325 mg PO DAILY 10/28/24 10/28/24 History iron) tablet (FeroSul) levothyroxine 50 mcg tablet 50 mcg PO DAILY 10/28/24 10/28/24 History tamsulosin 0.4 mg capsule 0.4 mg PO HS 10/28/24 10/28/24 History diphenhydramine 25 1 tablet PO HS PRN pain 10/29/24 10/29/24 History mg-acetaminophen 500 mg tablet (Tylenol PM Extra Strength) Allergies Allergy/AdvReac Type Severity Reaction Status Date / Time codeine AdvReac Unknown Verified 10/28/24 16:35 niacin AdvReac Flushing Verified 10/28/24 16:35 Vital Signs Vital Signs - 24 hr 10/30/24 20:00 10/30/24 20:00 10/30/24 20:23 Temperature Pulse Rate 125 H 125 H 125 H Respiratory Rate 18 Blood Pressure Pulse Oximetry 94 Oxygen Delivery Nasal Cannula Oxygen Flow Rate 3 Fraction of Inspired Oxygen 36 10/30/24 20:25 10/30/24 21:54 10/30/24 22:56 Temperature 37.8 C H 37.1 C Pulse Rate Respiratory Rate Blood Pressure Pulse Oximetry 94 Oxygen Delivery Nasal Cannula Oxygen Flow Rate 2 Fraction of Inspired Oxygen 10/30/24 23:00 10/30/24 23:23 10/31/24 00:00 Temperature 37.1 C Pulse Rate 94 94 Respiratory Rate 18 Blood Pressure Pulse Oximetry 95 Oxygen Delivery Oxygen Flow Rate Fraction of Inspired Oxygen 10/31/24 04:00 10/31/24 04:37 10/31/24 08:05 Temperature 36.1 C L Pulse Rate 95 95 98 Respiratory Rate 18 Blood Pressure 105/58 L Pulse Oximetry 97 Oxygen Delivery Oxygen Flow Rate Fraction of Inspired Oxygen 10/31/24 09:00 10/31/24 09:01 10/31/24 09:54 Temperature Pulse Rate 98 100 Respiratory Rate 24 H Blood Pressure Pulse Oximetry Oxygen Delivery Nasal Cannula Oxygen Flow Rate 2 Fraction of Inspired Oxygen 10/31/24 12:06 10/31/24 14:00 10/31/24 16:05 Temperature 36.4 C Pulse Rate 103 H 106 H 119 H Respiratory Rate 18 Blood Pressure 110/56 L Pulse Oximetry 98 Oxygen Delivery Oxygen Flow Rate Fraction of Inspired Oxygen 10/31/24 16:30 10/31/24 17:23 Temperature 37.7 C H Pulse Rate Respiratory Rate Blood Pressure Pulse Oximetry 98 Oxygen Delivery Nasal Cannula Oxygen Flow Rate 2 Fraction of Inspired Oxygen Exam Narrative: Patient not available for exam Results Labs 10/31/24 08:32 10/31/24 08:32 Labs: Short CBC 10/31/24 Range/Units 08:32 WBC 7.2 (4.5-10.0) K/mm3 Hgb 7.4 L (14.0-18.0) g/dL Hct 25.2 L (42.0-52.0) % Plt Count 146 L (150-375) k/mm3 BMP 10/31/24 08:32 Sodium 137 Potassium 4.4 Chloride 105 Carbon Dioxide 25 BUN 26 H Creatinine 1.39 H Glucose 147 H Calcium 8.8 Liver Function 10/31/24 Range/Units 08:32 Total Bilirubin 0.3 (0.2-1.3) mg/dL AST 42 (17-59) U/L ALT 29 (6-50) U/L Alkaline Phosphatase 117 (38-126) U/L Albumin 3.2 L (3.5-5.1) g/dL
[2024-10-31] MEDS: IRON SUCROSE COMPLEX 400 MG, IRON SUCROSE COMPLEX 100 MG in SODIUM CHLORIDE 0.9% IV 250 ML 78.57 MG IVPB (18:59)
[2024-10-31 19:25] LABS: IFOB Positive Control Positive; Immunochemical Fecal Occult Bl Positive (N)
[2024-10-31] MEDS: TAMSULOSIN HCL 0.4 MG CAPSULE PO (20:23)
[2024-10-31] MEDS: LORazepam (*CRX) 0.5 MG TABLET PO (20:25)
[2024-10-31] MEDS: INSULIN GLARGINE (*BKC) 100 UNITS/ML 15 UNITS SUB-Q (20:31)
[2024-11-01] VITALS (12 sets, daily range): BP systolic 116–120; BP diastolic 54–68; PULSE 68–104; RESP 20–24; TEMP 36–36.8; O2SAT 93–98
[2024-11-01] MEDS: LEVOTHYROXINE SODIUM 50 MCG TABLET PO (05:44)
[2024-11-01] MEDS: CENTRAL LINE FLUSH 10 ML IV PUSH ×3 (05:45→21:01)
[2024-11-01 06:35] LABS: Hematocrit 24.0 % (42.0-52.0); Hemoglobin 7.0 g/dL (14.0-18.0); Immature Granulocyte Percent A 0.9 % (0-0.5); Lymphocytes Absolute Auto 0.47 K/mm3 (0.9-3.2); Mean Corpuscular HGB Conc 29.2 g/dl (32-36); Mean Corpuscular Hemoglobin 26.4 pg (26-34); Mean Corpuscular Volume 90.6 fl (80-100); Nucleated Red Blood Cells Absolute Auto 0.000 K/mm3 (0.0-0.012); Nucleated Red Blood Cells Perc 0.0 % (0.0-0.2); Platelet Count Result 173 k/mm3 (150-375); Red Blood Count 2.65 M/mm3 (4.6-6.20); White Blood Count 5.4 K/mm3 (4.5-10.0)
[2024-11-01 06:57] LABS: Anisocytosis 1+; Hypochromasia 1+; Schistocytes None Seen
[2024-11-01 07:02] LABS: Alanine Aminotransferase 45 U/L (6-50); Albumin Level 3.1 g/dL (3.5-5.1); Alkaline Phosphatase 123 U/L (38-126); Anion Gap 6 mmol/L (4-12); Aspartate Amino Transferase 56 U/L (17-59); Bilirubin,Total 0.2 mg/dL (0.2-1.3); Blood Urea Nitrogen 30 mg/dL (9-20); Calcium 8.6 mg/dL (8.4-10.2); Carbon Dioxide 25 mmol/L (22-30); Chloride 105 mmol/L (98-107); Estimated CRCL calculation 39 ml/min; Estimated Glomerular Filt Rate 54; Glucose 161 mg/dL (65-110); Potassium 3.9 mmol/L (3.4-5.0); Sodium 136 mmol/L (137-145); Total Protein 6.6 g/dL (6.3-8.2)
[2024-11-01] MEDS: FLUTICASONE/UMECLIDIN/VILANTER 100-62.5-25 MCG ELLIPTA 1 PUFF INHALATION (07:59)
[2024-11-01] MEDS: LORATADINE 10 MG TABLET PO (08:49)
[2024-11-01] MEDS: guaiFENesin 12 HR 600 MG TABCR PO ×2 (08:49→20:03)
[2024-11-01] MEDS: METOPROLOL TARTRATE 12.5 MG TABLET PO ×2 (08:49→20:02)
[2024-11-01] MEDS: ROSUVASTATIN 20 MG TABLET PO (08:49)
[2024-11-01] MEDS: CYANOCOBALAMIN 1,000 MCG TABLET 1000 MCG PO (08:51)
[2024-11-01] MEDS: CITALOPRAM HYDROBROMIDE 20 MG TABLET PO (08:51)
--- NOTE | 2024-11-01 09:05 | P.PNIM_ITS ---
Progress Note: A&P Assessment and Plan (1) Sepsis: Qualifiers: Acute respiratory failure type: with hypoxia Sepsis acute organ dysfunction status: with acute organ dysfunction Sepsis type: sepsis during labor Severe sepsis acute organ dysfunction type: acute respiratory failure Severe sepsis shock status: without septic shock Qualified Code(s): O75.3 - Other infection during labor; A41.9 - Sepsis, unspecified organism; J96.01 - Acute respiratory failure with hypoxia; R65.20 - Severe sepsis without septic shock Code(s): A41.9 - Sepsis, unspecified organism Status: Acute Assessment and Plan: * sepsis criteria met with HR greater than 90, RR greater than 20. No leukocytosis. +hypoxia. * lactic acid: 3.3 -> 1.0 * procalcitonin 0.2 * 30 mL/kg = 2100, given 2L bolus in the ED * suspected source: pneumonia - management as below * continue antibiotics * blood cultures drawn on 10/28 - NGTD * monitor hemodynamic stability * No evidence of sepsis at this time (2) Pneumonia: Qualifiers: Laterality: right Lung location: unspecified part of lung Pneumonia type: due to unspecified organism Qualified Code(s): J18.9 - Pneumonia, unspecified organism Code(s): J18.9 - Pneumonia, unspecified organism Status: Acute Assessment and Plan: * CT chest 10/22 with interval increase in the size of a consolidation in the right mid lung, differential includes postobstructive atelectasis, pneumonia or malignancy. PET/CT recommended. * admit CXR with right-sided airspace disease, small right pleural effusion * complicating factors: previous hx of adenocarcinoma of the lung and chronic right-sided pleural effusion * MRSA DNA negative * continue ceftriaxone and azithromycin * supportive care: Mucinex, Tessalon Perles, Tylenol, DuoNebs * new supplemental O2 (3L) to maintain O2 sat greater than 92%, wean as tolerated * Will attempt to transition to oral coverage of antibiotics within the next 24 hours in preparation for discharge (3) Tachycardia: Code(s): R00.0 - Tachycardia, unspecified Status: Acute Assessment and Plan: * Patient and daughter states that patient has been dealing with baseline tachycardia for the past several weeks with a baseline heart rate in the 100s * Daughter states that patient has been dealing with recurrent pneumonia infections and this increases patient's baseline heart rate into the 120s + * Cross cover note on 10/29 - HR in the 120s, was given 5 mg IV metoprolol and heart rate improved to 100-110 * Likely secondary to underlying infection, lung cancer * Blood cultures NGTD but HR remains elevated * Will initiate Metoprolol BID, consult cardiology for further recommendations * Cardio consult - appreciate further recommendations * No specific treatment for this aside treating underlying pneumonia and sepsis. * Cardiology signs off * 11/01: Hrs remain stable in the 80s & 90s (4) Acute and chronic respiratory failure with hypoxia: Code(s): J96.21 - Acute and chronic respiratory failure with hypoxia Status: Acute Assessment and Plan: * arrived 88% on RA * at baseline requires 2 L nasal cannula at nighttime, now requiring 3 L at all times to maintain an O2 sat greater than 92%. * likely secondary to pneumonia * wean O2 as able * respiratory hygiene, incentive spirometry * 11/01: O2 94% on 2L (5) Heme positive stool: Code(s): R19.5 - Other fecal abnormalities Status: Acute Assessment and Plan: * Likely multifactorial - 2/2 to renal insufficiency and underlying iron deficiency * Hgb 7.5 upon admission * Hx: Chronic anemia, malignancy * transfuse if <7 * trend H&H * stool occult + * Heme consult * Iron infusion * consider Procrit if pt remains anemia * No indication for BM bx at this time * GI consult * Poor endoscopic candidate unless showing signs of active GI bleeding * Follow up with Oncology in outpt setting and if showing evidence of GI bleed - can be referred to GI (6) Adenocarcinoma, lung: Qualifiers: Laterality: right Qualified Code(s): C34.91 - Malignant neoplasm of unspecified part of right bronchus or lung Code(s): C34.90 - Malignant neoplasm of unspecified part of unspecified bronchus or lung Status: Acute Assessment and Plan: * hx of adenocarcinoma of the lung s/p chemo radiation. Previously required a PleurX for a chronic pleural effusion of the right side. * follows with Tarsha BEJARANO * needs PET scan as outpatient * Heme/onc consult to assess findings on CT chest * Reorder PET scan as outpt to assess interval increase consolidation in the right mid lung (7) COPD (chronic obstructive pulmonary disease): Qualifiers: COPD type: unspecified COPD Qualified Code(s): J44.9 - Chronic obstructive pulmonary disease, unspecified Code(s): J44.9 - Chronic obstructive pulmonary disease, unspecified Status: Acute Assessment and Plan: * Sourav FELIZ (8) Chronic anemia: Code(s): D64.9 - Anemia, unspecified Status: Chronic Assessment and Plan: * denies blood in his stool, has been dark but he is on iron * Hgb 7.5 upon admission, previously 10.1 on 07/10/2024 * Hx of chronic anemia of chronic disease * iron and t sat low. * check stool occult * transfuse if <7 * trend H&H * continue iron supplement * 11/01: Hgb 7.0 (9) Type 2 diabetes mellitus: Code(s): E11.9 - Type 2 diabetes mellitus without complications Status: Chronic Assessment and Plan: * A1c 6.4% on 06/11/2024 * hold metformin * hypoglycemia protocol * POC blood glucose ACHS * home medication: Continue Lantus 15 units HS. * low dose SSI (10) Chronic kidney disease, stage 3: Qualifiers: Chronic kidney disease stage 3 subtype: unspecified whether 3a or 3b Qualified Code(s): N18.30 - Chronic kidney disease, stage 3 unspecified Code(s): N18.30 - Chronic kidney disease, stage 3 unspecified Status: Chronic Assessment and Plan: * creatinine 1.21, BUN 23, GFR 57 upon admission * baseline creatinine: 1-1.2 * trend renal function * trend electrolytes, correct as needed (11) Obstructive sleep apnea: Code(s): G47.33 - Obstructive sleep apnea (adult) (pediatric) Status: Chronic Assessment and Plan: * wears 2L NC at night, currently requiring during daytime hours. Continue supplemental O2 to maintain O2 sat greater than 92%. Wean to baseline nocturnal needs as tolerated. Plan DVT Prophylaxis: scds Code Status: Full code Subjective Date/time seen: 11/01/24 09:05 Interval history: 84 y/o M with PMH of COPD CAD CKD S3, chronic respiratory failure with hypoxia, colon cancer, diabetes, non-small cell lung cancer believed to be in remission, hyperlipidemia, hypertension, thrombocytopenia, chronic anemia, and ROBIN presents here with shortness of breath and cough. 11/01/2024 Patient sitting comfortably in bed at time examination. Patient states he feels like he is doing well today - denies any chest pain, n/v or abd pain. Still some shortness of breath - remains on 2L NC, 93%. Oncology consulted - reorder PET scan as pt was scheduled for one this week. Will order Iron infusion and consider Procrit for iron deficiency if pt remains anemic - no need for BM bx at this time. GI also consulted regarding heme + stools -> poor endoscopic candidate - will reconsider if shown to have active GI bleeding. Review of Systems Review of Systems: All systems reviewed & are unremarkable except as noted in HPI and below Exam Narrative: General: NAD, appears deconditioned Eyes: EOMI ENT: neck supple Cardiovascular: Regular rate and rhythm Respiratory: Clear to auscultation, respirations even and unlabored on 2.5L NC Gastrointestinal: Soft, non tender Genitourinary: no suprapubic tenderness Musculoskeletal: No edema Skin: warm, dry Neuro: Alert. Psych: Mood appropriate Const: General: comfortable and no acute distress Other: , male, elderly, chronically ill-appearing HENMT: Face/Nose/Sinus: Normal nares present Mouth: Yes moist mucous membranes Eyes: General: appearance normal, both eyes and all related structures Sclera: sclerae normal Pupils: Equal, round and reactive pupils present EOM: EOMs intact bilaterally Resp: Effort & Inspection: normal respiratory effort Other: Coarse breath sounds bilaterally, more significant at the bases. Nasal cannula place tolerating well. Cardio: Rate: regular rate Rhythm: regular rhythm Other: +murmur GI: Other: Abdomen soft, nondistended, nontender. Normoactive bowel sounds in all quadrants. Skin: General skin exam: normal color and no rashes or lesions noted Wounds: no wounds Neuro: Cranial nerves: Yes Equal, round and reactive pupils present Speech: normal speech Motor exam (neuro): 5/5 motor strength present throughout Sensory Exam: normal sensation Other: A&O x4 Extrem: General: normal to inspection Psych: Mental Status: mental status grossly normal Affect: normal affect Other: Good insight and judgment, pleasant Objective Data Vital Signs Vital Signs: Vital Signs - 24 hr 10/31/24 09:54 10/31/24 12:06 10/31/24 14:00 Temperature 97.6 F Pulse Rate 103 H 106 H Respiratory Rate 18 Blood Pressure 110/56 L Pulse Oximetry 98 Oxygen Delivery Nasal Cannula Oxygen Flow Rate 2 10/31/24 16:05 10/31/24 16:30 10/31/24 17:23 Temperature 99.8 F H Pulse Rate 119 H Respiratory Rate Blood Pressure Pulse Oximetry 98 Oxygen Delivery Nasal Cannula Oxygen Flow Rate 2 10/31/24 20:00 10/31/24 20:23 10/31/24 21:24 Temperature 97.6 F Pulse Rate 129 H 129 H 11 L Respiratory Rate 22 H 24 H Blood Pressure 109/70 Pulse Oximetry 94 94 Oxygen Delivery Nasal Cannula Oxygen Flow Rate 3 10/31/24 22:30 11/01/24 00:00 11/01/24 04:00 Temperature Pulse Rate 104 H 87 Respiratory Rate Blood Pressure Pulse Oximetry 94 Oxygen Delivery Nasal Cannula Oxygen Flow Rate 3 11/01/24 05:47 11/01/24 08:01 11/01/24 08:49 Temperature 96.8 F L Pulse Rate 80 102 H Respiratory Rate 24 H Blood Pressure 116/57 L Pulse Oximetry 97 93 Oxygen Delivery Nasal Cannula Oxygen Flow Rate 2 Intake/Output Intake/Output: Intake & Output 10/29/24 10/30/24 10/31/24 11/01/24 23:59 23:59 23:59 23:59 Intake Total 1400 1560 1265 200 Output Total 2225 1050 1300 350 Balance -825 510 -35 -150 Meds/Results Medications: Active Medications Generic Name Dose Route Start Last Admin Trade Name Lazaroq PRN Reason Stop Dose Admin Acetaminophen 500 mg 10/28/24 16:19 10/31/24 20:24 Acetaminophen 500 Mg Tablet PO 500 mg Q6H PRN Administration Mild Pain (1-3) or Fever Albuterol/Ipratropium 3 ml 10/28/24 16:19 Ipratropium 0.5 Mg/Albuterol Sulfate 2.5 Mg Ampul.Neb 3 Ml INHALATION Q6HRT PRN Shortness Of Breath Or Wheezing Benzonatate 100 mg 10/28/24 16:19 10/31/24 09:02 Benzonatate 100 Mg Capsule PO 100 mg TID PRN Administration Cough Citalopram Hydrobromide 20 mg 10/29/24 09:00 11/01/24 08:51 Citalopram Hydrobromide 20 Mg Tablet PO 20 mg DAILY JERROD Administration Cyanocobalamin 1,000 mcg 10/29/24 09:00 11/01/24 08:51 Cyanocobalamin 1,000 Mcg Tablet PO 1,000 mcg DAILY JERROD Administration Dextrose 12.5 gm 10/28/24 16:19 Dextrose 50% 25 Gm/50 Ml Syringe IV PUSH PRN PRN Hypoglycemia Protocol Diphenhydramine HCl 12.5 mg 10/29/24 20:16 Diphenhydramine Hcl Elixir 12.5 Mg/5 Ml Udc PO HS PRN Insomnia Ferrous Sulfate 325 mg 10/29/24 12:00 10/31/24 12:48 Ferrous Sulfate [address] BY MOUTH 325 mg DAILY@1200 JERROD Administration Fluticasone/Umeclidinium/Vilanterol 1 puff 10/29/24 08:00 11/01/24 07:59 Fluticasone/Umeclidin/Vilanter 100-62.5-25 Mcg Ellipta INHALATION 1 puff DAILYRT JERROD Administration Glucagon 1 mg 10/28/24 16:19 Glucagon For Inj 1 Mg Vial IM PRN PRN Hypoglycemia Protocol Glucose 15 gm 10/28/24 16:19 Glucose Oral Gel 15 Gm Of Glucse In 37.5 Gm Tube PO PRN PRN Hypoglycemia Protocol Guaifenesin 600 mg 10/28/24 21:00 11/01/24 08:49 Guaifenesin 12 Hr 600 Mg Tabcr PO 600 mg Q12HR JERROD Administration Heparin Sodium (Beef Lung) 50 units 10/29/24 09:00 11/01/24 08:52 Heparin Flush 50 Units/5 Ml Syringe IV PUSH 50 units QAM JERROD Administration Heparin Sodium (Beef Lung) 50 units 10/28/24 21:47 10/31/24 17:08 Heparin Flush 50 Units/5 Ml Syringe IV PUSH 50 units PRN PRN Administration after intermittent infusion Heparin Sodium (Beef Lung) 50 units 10/28/24 21:47 Heparin Flush 50 Units/5 Ml Syringe IV PUSH PRN PRN after blood draws Heparin Sodium (Porcine) 500 units 10/28/24 21:47 Heparin Sodium Lock Flush 500 Units/5 Ml Syringe IV PUSH PRN PRN see comments below Ceftriaxone Sodium 1 gm/ 50 mls @ 100 mls/hr 10/29/24 14:00 10/31/24 14:42 Sodium Chloride IVPB 100 mls/hr Q24H JERROD Administration Azithromycin 500 mg/ Sodium 250 mls @ 250 mls/hr 10/29/24 15:00 10/31/24 16:04 Chloride IVPB 11/01/24 15:59 250 mls/hr Q24H JERROD Administration Dextrose 1,000 mls @ 100 mls/hr 10/28/24 16:19 Dextrose 5% 1,000 Ml IVPB PRN PRN Hypoglycemia Protocol Insulin Aspart 2 - 5 units 10/28/24 17:00 11/01/24 08:53 Insulin Aspart (*Bkc) 100 Units/Ml SUB-Q Not Given TIDWM [facility] Protocol Insulin Glargine 15 units 10/28/24 21:00 10/31/24 20:31 Insulin Glargine (*Bkc) 100 Units/Ml SUB-Q 15 units HS JERROD Administration Levothyroxine Sodium 50 mcg 10/29/24 06:30 11/01/24 05:44 Levothyroxine Sodium 50 Mcg Tablet PO 50 mcg DAILY@0630 JERROD Administration Loratadine 10 mg 10/29/24 09:00 11/01/24 08:49 Loratadine 10 Mg Tablet PO 10 mg QAM JERROD Administration Lorazepam 0.5 mg 10/31/24 10:01 10/31/24 20:25 Lorazepam (*Crx) 0.5 Mg Tablet PO 0.5 mg TID PRN Administration Anxiety Metoprolol Tartrate 12.5 mg 10/30/24 11:05 11/01/24 08:49 Metoprolol Tartrate 12.5 Mg Tablet PO 12.5 mg Q12HR JERROD Administration Morphine Sulfate 2 mg 10/28/24 14:53 Morphine Sulfate (*Crx) 2 Mg/Ml Inj IV PUSH Q2H PRN Pain Rated 7-10 Polyethylene Glycol 17 gm 10/31/24 17:00 11/01/24 08:52 Polyethylene Glycol 3350 17 Gm Powd.Pack PO 17 gm BID JERROD Administration Rosuvastatin Calcium 20 mg 10/29/24 09:00 11/01/24 08:49 Rosuvastatin 20 Mg Tablet PO 20 mg DAILY JERROD Administration Sodium Chloride 10 ml 10/28/24 22:00 11/01/24 05:45 Central Line Flush IV PUSH 10 ml Q8HR JERROD Administration Tamsulosin HCl 0.4 mg 10/29/24 21:00 10/31/24 20:23 Tamsulosin Hcl 0.4 Mg Capsule PO 0.4 mg HS JERROD Administration Radiology Results: ITS Impressions Chest X-Ray 10/31/24 07:13 Impression: 1: Asymmetric right-sided consolidation, consistent with pneumonia. 2: Small right pleural effusion. Labs Labs: Laboratory Results - last 24 hr 10/31/24 10/31/24 10/31/24 08:32 11:44 16:56 WBC RBC Hgb Hct MCV MCH MCHC RDW Plt Count MPV Immature Gran % (Auto) Neut % (Auto) Lymph % (Auto) Whitman % (Auto) Eos % (Auto) Baso % (Auto) Lymph # (Auto) Whitman # (Auto) Eos # (Auto) Baso # (Auto) Abs Immat Gran (auto) Absolute Neuts (auto) Absolute Nucleated RBC Band Neutrophils % Nucleated RBC % Platelet Estimate Hypochromasia Anisocytosis Schistocytes Sodium 137 Potassium 4.4 Chloride 105 Carbon Dioxide 25 Anion Gap 7 BUN 26 H Creatinine 1.39 H Estim Creat Clear Calc 36 Estimated GFR 49 L Glucose 147 H POC Capillary Glucose 324 H 183 H Calcium 8.8 Total Bilirubin 0.3 AST 42 ALT 29 Alkaline Phosphatase 117 Total Protein 6.8 Albumin 3.2 L Stl Occult Blood (IFOB) 10/31/24 10/31/24 11/01/24 18:04 20:30 06:20 WBC 5.4 RBC 2.65 L Hgb 7.0 L Hct 24.0 L MCV 90.6 MCH 26.4 MCHC 29.2 L RDW 19.4 H Plt Count 173 MPV 9.4 Immature Gran % (Auto) 0.9 H Neut % (Auto) 78.6 H Lymph % (Auto) 8.8 L Whitman % (Auto) 9.1 H Eos % (Auto) 2.0 Baso % (Auto) 0.6 Lymph # (Auto) 0.47 L Whitman # (Auto) 0.5 Eos # (Auto) 0.1 Baso # (Auto) 0.0 Abs Immat Gran (auto) 0.05 H Absolute Neuts (auto) 4.2 Absolute Nucleated RBC 0.000 Band Neutrophils % Not Reportable Nucleated RBC % 0.0 Platelet Estimate Adequate Hypochromasia 1+ Anisocytosis 1+ Schistocytes None seen Sodium 136 L Potassium 3.9 Chloride 105 Carbon Dioxide 25 Anion Gap 6 BUN 30 H Creatinine 1.28 Estim Creat Clear Calc 39 Estimated GFR 54 L Glucose 161 H POC Capillary Glucose 195 H Calcium 8.6 Total Bilirubin 0.2 AST 56 ALT 45 Alkaline Phosphatase 123 Total Protein 6.6 Albumin 3.1 L Stl Occult Blood (IFOB) Positive H 11/01/24 08:37 WBC RBC Hgb Hct MCV MCH MCHC RDW Plt Count MPV Immature Gran % (Auto) Neut % (Auto) Lymph % (Auto) Whitman % (Auto) Eos % (Auto) Baso % (Auto) Lymph # (Auto) Whitman # (Auto) Eos # (Auto) Baso # (Auto) Abs Immat Gran (auto) Absolute Neuts (auto) Absolute Nucleated RBC Band Neutrophils % Nucleated RBC % Platelet Estimate Hypochromasia Anisocytosis Schistocytes Sodium Potassium Chloride Carbon Dioxide Anion Gap BUN Creatinine Estim Creat Clear Calc Estimated GFR Glucose POC Capillary Glucose 136 H Calcium Total Bilirubin AST ALT Alkaline Phosphatase Total Protein Albumin Stl Occult Blood (IFOB) Quality VTE Prophylaxis VTE prophylaxis: mechanical ordered
--- NOTE | 2024-11-01 09:19 | WPDGICN ---
Assessment and Plan Assessment and plan (1) Heme positive stool: Code(s): R19.5 - Other fecal abnormalities Status: Acute (2) Chronic anemia: Code(s): D64.9 - Anemia, unspecified Status: Chronic (3) Acute and chronic respiratory failure with hypoxia: Code(s): J96.21 - Acute and chronic respiratory failure with hypoxia Status: Acute (4) Pneumonia: Qualifiers: Laterality: right Lung location: middle lobe of lung Pneumonia type: due to unspecified organism Qualified Code(s): J18.9 - Pneumonia, unspecified organism Code(s): J18.9 - Pneumonia, unspecified organism Status: Acute (5) Sepsis: Qualifiers: Sepsis type: sepsis during labor Sepsis acute organ dysfunction status: with acute organ dysfunction Severe sepsis acute organ dysfunction type: acute respiratory failure Acute respiratory failure type: with hypoxia Severe sepsis shock status: without septic shock Qualified Code(s): O75.3 - Other infection during labor; A41.9 - Sepsis, unspecified organism; J96.01 - Acute respiratory failure with hypoxia; R65.20 - Severe sepsis without septic shock Code(s): A41.9 - Sepsis, unspecified organism Status: Acute Plan 1. Heme positive stools/chronic anemia/sepsis/pneumonia/acute on chronic respiratory failure: Per patient his last colonoscopy was done in [facility] 2-3 years ago and was normal. He is unsure if he ever had an EGD. Hx of colon cancer s/p colon resection in 2014. Patient with chronic anemia. Heme/onc on patients case and per Dr. Willingham, Anemia is multifactorial secondary to renal insufficiency and iron deficiency. There is a possibility of bone marrow disorders as well. I will order iron infusion. Will consider Procrit injection after correction of iron deficiency if he remains anemic. No need for bone marrow biopsy testing at this time. He will follow-up in the office. Patient admits to dark stools on iron supplement. Patient denies any GI complaints at this time and he has no signs of active GI bleeding. patient is a poor endoscopy candidate at this time given acute condition/illness. Will take a more observational approach unless patient is shown to have active GI bleeding. Patient to follow up outpatient with Dr. Willingham and if he feels there may be possible GI blood loss, patient can follow up with us outpatient for evaluation primary care team to continue monitoring H/H and transfuse as needed to keep Hgb >7 Thank you very much for allowing me to share in the care of this very nice patient. This report may have been done utilizing a voice recognition system. Attempts have been made to correct errors. However, there may be uncorrected grammatical, spelling, and recognition errors present. GI Consult Note Consult date/time: 11/01/24 09:19 Reason for consult: Heme positive stools HPI: Michele Watson is a 84 year old male with PMSH of lung cancer treated with immunotherapy, chronic respiratory failure with O2 dependence on 2 L, chronic kidney disease stage 3, COPD, diagnosed with colon cancer in 2015 status post colon resection, diabetes, HLD, HTN, chronic anemia and ROBIN. He presented to the ER 10/28/2024 with complaints of SOB and was admitted for sepsis, acute on chronic respiratory failure and pneumonia. GI has been consulted for heme-positive stools. During today's visit the patient denies any GI complaints. He states that he has chronically dark stools secondary to supplemental iron use. He denies any abdominal pain, nausea, vomiting, bloating, odynophagia, dysphagia, reflux, regurgitation, unexplained weight loss, or appetite loss. Prior to admission the patient states that he was having regular bowel movements every 1-2 days. Denies chronic constipation or diarrhea. Denies hematochezia. Denies any NSAID, aspirin, or anticoagulant use. Former smoker x 60 years. Denies alcohol or marijuana use. Family history negative for CRC or IBD. ENDOSCOPY HISTORY: EGD: Patient unable to say if he every had an EGD COLONOSCOPY: Per patient last colonoscopy done around 2-3 years ago in [facility] and per patient was normal LABS AND STOOL STUDIES: Labs 11/01/2024: WBC 5, Hgb 7, Hct 24, MCV 91, platelets 173 Sodium 136, potassium 3.9, BUN 30, creatinine 1.28, GFR 54, calcium 8.6 Total bilirubin 0.2, AST 56, ALT 45, Alkaline Phos 123, albumin 3.1 Fecal occult blood positive (10/31) Labs 10/28/2024: B12 820, folate 5.7, procalcitonin 0.2, TSH 2.860 IMAGING: *No recent GI imaging available* CT chest/abd/pelvis w/contrast 10/20/2023: IMPRESSION: CHEST: 1. Bilateral pleural effusion larger on the right side with left chest tube. Adjacent atelectatic changes. 2. Underlying emphysematous changes. 3. Nodule in the middle lobe which measures 6 mm. 6 months follow-up advised. ABDOMEN/PELVIS: 1. Slight dilatation of the abdominal aorta measuring 3.3 cm. 2. Narrowing at multiple vessels originating from the abdominal aorta. 3. No evidence of appendicitis, diverticulitis or intestinal obstruction. Review of Systems Constitutional: Constitutional: Reports as per HPI ENT: Reports as per HPI Cardiovascular: Cardiovascular: Reports as per HPI, Denies chest pain and Reports dyspnea Respiratory: Respiratory: Reports cough and Reports dyspnea Gastrointestinal: Gastrointestinal: Reports as per HPI Musculoskeletal: Musculoskeletal: Reports as per HPI Integumentary/Breasts: Skin/Breast: Reports as per HPI Psychiatric: Psychiatric: Reports as per HPI Endocrine: Endocrine: Reports no additional endocrine complaints Hematologic/Lymphatic: Hematologic/Lymphatic: Reports no additional hematologic/lymphatic complaints [facility] Past Medical History Medical History Chronic obstructive pulmonary disease Chronic kidney disease, stage 3 Chronic respiratory failure with hypoxia Colon cancer (2014) Type 2 diabetes mellitus Non-small cell lung cancer (09/2022) Arising in the right lung status post chemo radiation, currently on immunotherapy. Hyperlipidemia Hypertension Thrombocytopenia Chronic anemia Obstructive sleep apnea Tobacco abuse Surgical History Surgical History History of skin graft History of bilateral cataract extraction History of cholecystectomy (2002) History of colon resection (2014) For colon cancer. Family History Family History Father Depression Social History Social History Social History: Surrogate medical decision maker: Mallorie Watson, spouse. Code status: Full code. Smoking packs per day: 1 Smoking cigarettes per day: 20.0 Years smoked: 60 Smoking pack-years: 60.00 Smoking status: Former smoker Tobacco type: cigarettes Alcohol intake: never Substance use: never Substance use type: does not use Do You Feel Safe in your Home?: Yes Lack of Transportation: No Lack of Food: Never True Current Housing: I Have Housing Concerned About Future Housing: No Difficulty Paying Gas/Electric Bills: No Difficulty Paying for Meds: No Currently Unemployed: No Education: High School Diploma/GED Difficulty w/ Childcare or Family Care: No Living arrangements: with family Occupation/Education: retired Spiritual care concerns: No Meds Home Medications and Allergies Home Medications ?Medication ?Instructions ?Recorded ?Confirmed ?Type citalopram 20 mg tablet 20 mg PO DAILY 09/06/22 10/28/24 History lorazepam 0.5 mg tablet 0.5 mg PO TID 09/06/22 10/28/24 History metformin 1,000 mg tablet 1,000 mg PO BID 09/06/22 10/28/24 History rosuvastatin 20 mg tablet 20 mg PO DAILY 09/06/22 10/28/24 History insulin degludec 100 unit/mL (3 15 unit (0.15 mL) subcut HS #15 mL 11/19/23 10/28/24 Rx mL) subcutaneous pen (Tresiba FlexTouch U-100 insulin) fluticasone fur. 100 mcg-umeclid 1 inh inhalation Q24H 1 month #60 07/10/24 10/28/24 Rx 62.5 mcg-vilant 25 mcg ea inhalat.powder (Trelegy Ellipta) cetirizine 10 mg tablet (Zyrtec) 10 mg PO DAILY 10/28/24 10/28/24 History cyanocobalamin (vitamin B-12) 1,000 mcg PO DAILY 10/28/24 10/28/24 History 1,000 mcg tablet ferrous sulfate 325 mg (65 mg 325 mg PO DAILY 10/28/24 10/28/24 History iron) tablet (FeroSul) levothyroxine 50 mcg tablet 50 mcg PO DAILY 10/28/24 10/28/24 History tamsulosin 0.4 mg capsule 0.4 mg PO HS 10/28/24 10/28/24 History diphenhydramine 25 1 tablet PO HS PRN pain 10/29/24 10/29/24 History mg-acetaminophen 500 mg tablet (Tylenol PM Extra Strength) Allergies Allergy/AdvReac Type Severity Reaction Status Date / Time codeine AdvReac Unknown Verified 10/28/24 16:35 niacin AdvReac Flushing Verified 10/28/24 16:35 Vital Signs Vital Signs - 24 hr 10/31/24 09:54 10/31/24 12:06 10/31/24 14:00 Temperature 97.6 F Pulse Rate 103 H 106 H Respiratory Rate 18 Blood Pressure 110/56 L Pulse Oximetry 98 Oxygen Delivery Nasal Cannula Oxygen Flow Rate 2 10/31/24 16:05 10/31/24 16:30 10/31/24 17:23 Temperature 99.8 F H Pulse Rate 119 H Respiratory Rate Blood Pressure Pulse Oximetry 98 Oxygen Delivery Nasal Cannula Oxygen Flow Rate 2 10/31/24 20:00 10/31/24 20:23 10/31/24 21:24 Temperature 97.6 F Pulse Rate 129 H 129 H 11 L Respiratory Rate 22 H 24 H Blood Pressure 109/70 Pulse Oximetry 94 94 Oxygen Delivery Nasal Cannula Oxygen Flow Rate 3 10/31/24 22:30 11/01/24 00:00 11/01/24 04:00 Temperature Pulse Rate 104 H 87 Respiratory Rate Blood Pressure Pulse Oximetry 94 Oxygen Delivery Nasal Cannula Oxygen Flow Rate 3 11/01/24 05:47 11/01/24 08:01 11/01/24 08:49 Temperature 96.8 F L Pulse Rate 80 102 H Respiratory Rate 24 H Blood Pressure 116/57 L Pulse Oximetry 97 93 Oxygen Delivery Nasal Cannula Oxygen Flow Rate 2 Exam Const: General: comfortable and no acute distress Orientation/consciousness: oriented to person, oriented to place, oriented to time and patient oriented x3 HENMT: Head: normal to inspection, normocephalic and atraumatic Ears: TM's normal bilaterally Mouth: Yes moist mucous membranes Eyes: General: appearance normal, both eyes and all related structures Conjunctivae: conjunctivae normal Sclera: sclerae normal Pupils: Equal, round and reactive pupils present Neck: Neck: supple and no JVD Chest: Chest palpation & inspection: normal inspection of the chest Resp: Effort & Inspection: normal respiratory effort Auscultation: clear to auscultation bilaterally and diminished lung sounds Other: nasal cannula Cardio: Jugular venous distension: no JVD Rate: regular rate Rhythm: regular rhythm Heart sounds: S1 normal heart sound present and S2 normal heart sound present GI: Inspection: normal to inspection GI Palp: Yes Soft to palpation, No Tenderness to palpation present (GI) and No Guarding due to palpation present (GI) Auscultation: normal bowel sounds Rectal Exam: deferred Skin: General skin exam: normal color Neuro: General: oriented to person, oriented to place, oriented to time and patient oriented x3 Cranial nerves: Yes Equal, round and reactive pupils present Speech: normal speech Sensory Exam: normal sensation Extrem: General: normal to inspection Psych: Appearance: grossly normal and well kempt Mental Status: mental status grossly normal Affect: normal affect Results Labs 11/01/24 06:20 11/01/24 06:20 Labs: Short CBC 11/01/24 Range/Units 06:20 WBC 5.4 (4.5-10.0) K/mm3 Hgb 7.0 L (14.0-18.0) g/dL Hct 24.0 L (42.0-52.0) % Plt Count 173 (150-375) k/mm3 BMP 11/01/24 06:20 Sodium 136 L Potassium 3.9 Chloride 105 Carbon Dioxide 25 BUN 30 H Creatinine 1.28 Glucose 161 H Calcium 8.6 Liver Function 11/01/24 Range/Units 06:20 Total Bilirubin 0.2 (0.2-1.3) mg/dL AST 56 (17-59) U/L ALT 45 (6-50) U/L Alkaline Phosphatase 123 (38-126) U/L Albumin 3.1 L (3.5-5.1) g/dL
[2024-11-01] MEDS: INSULIN ASPART (*BKC) 100 UNITS/ML SUB-Q ×2 (12:36→17:31)
[2024-11-01] MEDS: FERROUS SULFATE 325 MG TABLET DR BY MOUTH (12:37)
[2024-11-01] MEDS: cefTRIAXone 1 GM in SODIUM CHLORIDE 0.9% IV 50 ML 100 ML IVPB (14:25)
[2024-11-01] MEDS: AZITHROMYCIN IV 500 MG in SODIUM CHLORIDE 0.9% IV 250 ML IVPB (15:54)
[2024-11-01] MEDS: TAMSULOSIN HCL 0.4 MG CAPSULE PO (20:03)
[2024-11-01] MEDS: INSULIN GLARGINE (*BKC) 100 UNITS/ML 15 UNITS SUB-Q (20:55)
[2024-11-02] VITALS (18 sets, daily range): BP systolic 97–122; BP diastolic 44–67; PULSE 54–99; RESP 2–21; TEMP 36.4–37; O2SAT 92–97
[2024-11-02] MEDS: diphenhydrAMINE HCL ELIXIR 12.5 MG/5 ML UDC PO (00:23)
[2024-11-02 05:07] LABS: Hematocrit 23.5 % (42.0-52.0); Immature Granulocyte Percent A 1.6 % (0-0.5); Lymphocytes Absolute Auto 0.70 K/mm3 (0.9-3.2); Mean Corpuscular HGB Conc 28.9 g/dl (32-36); Mean Corpuscular Hemoglobin 26.0 pg (26-34); Mean Corpuscular Volume 89.7 fl (80-100); Nucleated Red Blood Cells Absolute Auto 0.000 K/mm3 (0.0-0.012); Nucleated Red Blood Cells Perc 0.0 % (0.0-0.2); Platelet Count Result 180 k/mm3 (150-375); Red Blood Count 2.62 M/mm3 (4.6-6.20); White Blood Count 5.8 K/mm3 (4.5-10.0)
[2024-11-02 05:13] LABS: Hemoglobin 6.8 g/dL (14.0-18.0)
[2024-11-02 05:29] LABS: Anisocytosis 1+; Hypochromasia 1+; Schistocytes None Seen
[2024-11-02 06:15] LABS: Alanine Aminotransferase 60 U/L (6-50); Albumin Level 3.1 g/dL (3.5-5.1); Alkaline Phosphatase 127 U/L (38-126); Anion Gap 8 mmol/L (4-12); Aspartate Amino Transferase 65 U/L (17-59); Bilirubin,Total 0.2 mg/dL (0.2-1.3); Blood Urea Nitrogen 25 mg/dL (9-20); Calcium 8.4 mg/dL (8.4-10.2); Carbon Dioxide 24 mmol/L (22-30); Chloride 103 mmol/L (98-107); Estimated CRCL calculation 39 ml/min; Estimated Glomerular Filt Rate 54; Glucose 165 mg/dL (65-110); Potassium 3.9 mmol/L (3.4-5.0); Sodium 135 mmol/L (137-145); Total Protein 6.7 g/dL (6.3-8.2)
[2024-11-02] MEDS: LEVOTHYROXINE SODIUM 50 MCG TABLET PO (06:41)
[2024-11-02] MEDS: CENTRAL LINE FLUSH 10 ML IV PUSH ×3 (06:42→21:18)
--- NOTE | 2024-11-02 07:31 | P.PNIM_ITS ---
Progress Note: A&P Assessment and Plan (1) Sepsis: Qualifiers: Acute respiratory failure type: with hypoxia Sepsis acute organ dysfunction status: with acute organ dysfunction Sepsis type: sepsis during labor Severe sepsis acute organ dysfunction type: acute respiratory failure Severe sepsis shock status: without septic shock Qualified Code(s): O75.3 - Other infection during labor; A41.9 - Sepsis, unspecified organism; J96.01 - Acute respiratory failure with hypoxia; R65.20 - Severe sepsis without septic shock Code(s): A41.9 - Sepsis, unspecified organism Status: Acute Assessment and Plan: * sepsis criteria met with HR greater than 90, RR greater than 20. No leukocytosis. +hypoxia. * lactic acid: 3.3 -> 1.0 * procalcitonin 0.2 * 30 mL/kg = 2100, given 2L bolus in the ED * suspected source: pneumonia - management as below * continue antibiotics * blood cultures drawn on 10/28 - NGTD * monitor hemodynamic stability * No evidence of sepsis at this time * Remains afebrile, non-tachycardic, non-tachypneic (2) Pneumonia: Qualifiers: Laterality: right Lung location: unspecified part of lung Pneumonia type: due to unspecified organism Qualified Code(s): J18.9 - Pneumonia, unspecified organism Code(s): J18.9 - Pneumonia, unspecified organism Status: Acute Assessment and Plan: * CT chest 10/22 with interval increase in the size of a consolidation in the right mid lung, differential includes postobstructive atelectasis, pneumonia or malignancy. PET/CT recommended. * admit CXR with right-sided airspace disease, small right pleural effusion * complicating factors: previous hx of adenocarcinoma of the lung and chronic right-sided pleural effusion * MRSA DNA negative * continue ceftriaxone and azithromycin * supportive care: Mucinex, Tessalon Perles, Tylenol, DuoNebs * new supplemental O2 (3L) to maintain O2 sat greater than 92%, wean as tolerated * Will attempt to transition to oral coverage of antibiotics within the next 24 hours in preparation for discharge (3) Tachycardia: Code(s): R00.0 - Tachycardia, unspecified Status: Acute Assessment and Plan: * Patient and daughter states that patient has been dealing with baseline tachycardia for the past several weeks with a baseline heart rate in the 100s * Daughter states that patient has been dealing with recurrent pneumonia infections and this increases patient's baseline heart rate into the 120s + * Cross cover note on 10/29 - HR in the 120s, was given 5 mg IV metoprolol and heart rate improved to 100-110 * Likely secondary to underlying infection, lung cancer * Blood cultures NGTD but HR remains elevated * Will initiate Metoprolol BID, consult cardiology for further recommendations * Cardio consult - appreciate further recommendations * No specific treatment for this aside treating underlying pneumonia and sepsis. * Cardiology signs off * 11/02: Hrs remain stable in the 90s (4) Acute and chronic respiratory failure with hypoxia: Code(s): J96.21 - Acute and chronic respiratory failure with hypoxia Status: Acute Assessment and Plan: * arrived 88% on RA * at baseline requires 2 L nasal cannula at nighttime, now requiring 3 L at all times to maintain an O2 sat greater than 92%. * likely secondary to pneumonia * wean O2 as able * respiratory hygiene, incentive spirometry * 11/02: O2 93% on 2L * Has 02 set up at home but will obtain Home 02 eval as this is a relatively new requirement (5) Chronic anemia: Code(s): D64.9 - Anemia, unspecified Status: Chronic Assessment and Plan: * denies blood in his stool, has been dark but he is on iron * Hgb 7.5 upon admission, previously 10.1 on 07/10/2024 * Hx of chronic anemia of chronic disease * iron and t sat low. * check stool occult * transfuse if <7 * trend H&H * continue iron supplement * 11/02: Hgb 6.8 * Transfuse 1 unit PRBC * Will discuss with Heme/onc regarding possible need of Procrit (6) Heme positive stool: Code(s): R19.5 - Other fecal abnormalities Status: Acute Assessment and Plan: * Likely multifactorial - 2/2 to renal insufficiency and underlying iron deficiency * Hgb 7.5 upon admission * Hx: Chronic anemia, malignancy * transfuse if <7 * trend H&H * stool occult + * Heme consult * Iron infusion * consider Procrit if pt remains anemia * No indication for BM bx at this time * GI consult * Poor endoscopic candidate unless showing signs of active GI bleeding * Follow up with Oncology in outpt setting and if showing evidence of GI bleed - can be referred to GI (7) Adenocarcinoma, lung: Qualifiers: Laterality: right Qualified Code(s): C34.91 - Malignant neoplasm of unspecified part of right bronchus or lung Code(s): C34.90 - Malignant neoplasm of unspecified part of unspecified bronchus or lung Status: Acute Assessment and Plan: * hx of adenocarcinoma of the lung s/p chemo radiation. Previously required a PleurX for a chronic pleural effusion of the right side. * follows with Tarsha BEJARANO * needs PET scan as outpatient * Heme/onc consult to assess findings on CT chest * Reorder PET scan as outpt to assess interval increase consolidation in the right mid lung (8) COPD (chronic obstructive pulmonary disease): Qualifiers: COPD type: unspecified COPD Qualified Code(s): J44.9 - Chronic obstructive pulmonary disease, unspecified Code(s): J44.9 - Chronic obstructive pulmonary disease, unspecified Status: Acute Assessment and Plan: * Sourav SANDERSN (9) Type 2 diabetes mellitus: Code(s): E11.9 - Type 2 diabetes mellitus without complications Status: Chronic Assessment and Plan: * A1c 6.4% on 06/11/2024 * hold metformin * hypoglycemia protocol * POC blood glucose ACHS * home medication: Continue Lantus 15 units HS. * low dose SSI (10) Chronic kidney disease, stage 3: Qualifiers: Chronic kidney disease stage 3 subtype: unspecified whether 3a or 3b Qualified Code(s): N18.30 - Chronic kidney disease, stage 3 unspecified Code(s): N18.30 - Chronic kidney disease, stage 3 unspecified Status: Chronic Assessment and Plan: * creatinine 1.21, BUN 23, GFR 57 upon admission * baseline creatinine: 1-1.2 * trend renal function * trend electrolytes, correct as needed (11) Obstructive sleep apnea: Code(s): G47.33 - Obstructive sleep apnea (adult) (pediatric) Status: Chronic Assessment and Plan: * wears 2L NC at night, currently requiring during daytime hours. Continue supplemental O2 to maintain O2 sat greater than 92%. Wean to baseline nocturnal needs as tolerated. Plan DVT Prophylaxis: scds Code Status: Full code Subjective Date/time seen: 11/02/24 07:31 Interval history: 84 y/o M with PMH of COPD CAD CKD S3, chronic respiratory failure with hypoxia, colon cancer, diabetes, non-small cell lung cancer believed to be in remission, hyperlipidemia, hypertension, thrombocytopenia, chronic anemia, and ROBIN presents here with shortness of breath and cough. 11/02/2024 Patient sitting comfortably at bedside at time examination. Patient states he feels more tired today, although endorses slight improvement in breathing. Remains on 2L NC, satting @ 93%. Remains afebrile with stable HR. No leukocytosi s, however Hgb dropped to 6.8 today, so will give transfusion of PRBC and will monitor H&H after transfusion. No major electrolyte abnormalities - will discuss with Heme/Onc regarding continued anemia. Pt otherwise has no complaints. Review of Systems Review of Systems: All systems reviewed & are unremarkable except as noted in HPI and below Exam Narrative: General: NAD, appears deconditioned Eyes: EOMI ENT: neck supple Cardiovascular: Regular rate and rhythm Respiratory: Clear to auscultation, respirations even and unlabored on 2.5L NC Gastrointestinal: Soft, non tender Genitourinary: no suprapubic tenderness Musculoskeletal: No edema Skin: warm, dry Neuro: Alert. Psych: Mood appropriate Const: General: comfortable and no acute distress Other: , male, elderly, chronically ill-appearing HENMT: Face/Nose/Sinus: Normal nares present Mouth: Yes moist mucous membranes Eyes: General: appearance normal, both eyes and all related structures Sclera: sclerae normal Pupils: Equal, round and reactive pupils present EOM: EOMs intact bilaterally Resp: Effort & Inspection: normal respiratory effort Other: Coarse breath sounds bilaterally, more significant at the bases. Nasal cannula place tolerating well. Cardio: Rate: regular rate Rhythm: regular rhythm Other: +murmur GI: Other: Abdomen soft, nondistended, nontender. Normoactive bowel sounds in all quadrants. Skin: General skin exam: normal color and no rashes or lesions noted Wounds: no wounds Neuro: Cranial nerves: Yes Equal, round and reactive pupils present Speech: normal speech Motor exam (neuro): 5/5 motor strength present throughout Sensory Exam: normal sensation Other: A&O x4 Extrem: General: normal to inspection Psych: Mental Status: mental status grossly normal Affect: normal affect Other: Good insight and judgment, pleasant Objective Data Vital Signs Vital Signs: Vital Signs - 24 hr 11/01/24 08:01 11/01/24 08:49 11/01/24 08:50 Temperature Pulse Rate 102 H 102 H Respiratory Rate Blood Pressure Pulse Oximetry 93 93 Oxygen Delivery Nasal Cannula Nasal Cannula Oxygen Flow Rate 2 2 11/01/24 08:50 11/01/24 12:00 11/01/24 14:00 Temperature 98.2 F Pulse Rate 85 95 68 Respiratory Rate 20 Blood Pressure 120/68 Pulse Oximetry 98 Oxygen Delivery Oxygen Flow Rate 11/01/24 16:00 11/01/24 20:00 11/01/24 20:00 Temperature Pulse Rate 99 104 H 104 H Respiratory Rate 22 H Blood Pressure Pulse Oximetry 96 Oxygen Delivery Nasal Cannula Oxygen Flow Rate 2 11/01/24 20:02 11/01/24 22:00 11/02/24 00:00 Temperature 98.1 F Pulse Rate 101 H 101 H 96 Respiratory Rate 22 H Blood Pressure 116/54 L Pulse Oximetry 96 Oxygen Delivery Oxygen Flow Rate 11/02/24 04:00 11/02/24 05:23 11/02/24 06:00 Temperature 97.6 F 97.6 F Pulse Rate 96 99 99 Respiratory Rate 21 H 2 L Blood Pressure 97/62 L 103/48 L Pulse Oximetry 95 95 Oxygen Delivery Nasal Cannula Oxygen Flow Rate 2 Intake/Output Intake/Output: Intake & Output 10/30/24 10/31/24 11/01/2425 23:59 23:59 23:59 23:59 Intake Total 1560 1565 3140 200 Output Total 1050 1300 1350 620 Balance 746 572 1752 -420 Meds/Results Medications: Active Medications Generic Name Dose Route Start Last Admin Trade Name Freq PRN Reason Stop Dose Admin Acetaminophen 500 mg 10/28/24 16:19 10/31/24 20:24 Acetaminophen 500 Mg Tablet PO 500 mg Q6H PRN Administration Mild Pain (1-3) or Fever Albuterol/Ipratropium 3 ml 10/28/24 16:19 Ipratropium 0.5 Mg/Albuterol Sulfate 2.5 Mg Ampul.Neb 3 Ml INHALATION Q6HRT PRN Shortness Of Breath Or Wheezing Benzonatate 100 mg 10/28/24 16:19 10/31/24 09:02 Benzonatate 100 Mg Capsule PO 100 mg TID PRN Administration Cough Citalopram Hydrobromide 20 mg 10/29/24 09:00 11/01/24 08:51 Citalopram Hydrobromide 20 Mg Tablet PO 20 mg DAILY JERROD Administration Cyanocobalamin 1,000 mcg 10/29/24 09:00 11/01/24 08:51 Cyanocobalamin 1,000 Mcg Tablet PO 1,000 mcg DAILY JERROD Administration Dextrose 12.5 gm 10/28/24 16:19 Dextrose 50% 25 Gm/50 Ml Syringe IV PUSH PRN PRN Hypoglycemia Protocol Diphenhydramine HCl 12.5 mg 10/29/24 20:16 11/02/24 00:23 Diphenhydramine Hcl Elixir 12.5 Mg/5 Ml Udc PO 12.5 mg HS PRN Administration Insomnia Ferrous Sulfate 325 mg 10/29/24 12:00 11/01/24 12:37 Ferrous Sulfate [address] BY MOUTH 325 mg DAILY@1200 JERROD Administration Fluticasone/Umeclidinium/Vilanterol 1 puff 10/29/24 08:00 11/01/24 07:59 Fluticasone/Umeclidin/Vilanter 100-62.5-25 Mcg Ellipta INHALATION 1 puff DAILYRT JERROD Administration Glucagon 1 mg 10/28/24 16:19 Glucagon For Inj 1 Mg Vial IM PRN PRN Hypoglycemia Protocol Glucose 15 gm 10/28/24 16:19 Glucose Oral Gel 15 Gm Of Glucse In 37.5 Gm Tube PO PRN PRN Hypoglycemia Protocol Guaifenesin 600 mg 10/28/24 21:00 11/01/24 20:03 Guaifenesin 12 Hr 600 Mg Tabcr PO 600 mg Q12HR JERROD Administration Heparin Sodium (Beef Lung) 50 units 10/29/24 09:00 11/01/24 08:52 Heparin Flush 50 Units/5 Ml Syringe IV PUSH 50 units QAM JERROD Administration Heparin Sodium (Beef Lung) 50 units 10/28/24 21:47 10/31/24 17:08 Heparin Flush 50 Units/5 Ml Syringe IV PUSH 50 units PRN PRN Administration after intermittent infusion Heparin Sodium (Beef Lung) 50 units 10/28/24 21:47 Heparin Flush 50 Units/5 Ml Syringe IV PUSH PRN PRN after blood draws Heparin Sodium (Porcine) 500 units 10/28/24 21:47 Heparin Sodium Lock Flush 500 Units/5 Ml Syringe IV PUSH PRN PRN see comments below Ceftriaxone Sodium 1 gm/ 50 mls @ 100 mls/hr 10/29/24 14:00 11/01/24 14:25 Sodium Chloride IVPB 100 mls/hr Q24H JERROD Administration Dextrose 1,000 mls @ 100 mls/hr 10/28/24 16:19 Dextrose 5% 1,000 Ml IVPB PRN PRN Hypoglycemia Protocol Sodium Chloride 250 mls @ 30 mls/hr 11/02/24 06:30 Normal Saline Iv IV CONT 11/02/24 14:49 .Q8H20M STA Insulin Aspart 2 - 5 units 10/28/24 17:00 11/01/24 17:31 Insulin Aspart (*Bkc) 100 Units/Ml SUB-Q 3 units TIDWM JERROD Administration Protocol Insulin Glargine 15 units 10/28/24 21:00 11/01/24 20:55 Insulin Glargine (*Bkc) 100 Units/Ml SUB-Q 15 units HS JERROD Administration Levothyroxine Sodium 50 mcg 10/29/24 06:30 11/02/24 06:41 Levothyroxine Sodium 50 Mcg Tablet PO 50 mcg DAILY@0630 JERROD Administration Loratadine 10 mg 10/29/24 09:00 11/01/24 08:49 Loratadine 10 Mg Tablet PO 10 mg QAM JERROD Administration Lorazepam 0.5 mg 10/31/24 10:01 10/31/24 20:25 Lorazepam (*Crx) 0.5 Mg Tablet PO 0.5 mg TID PRN Administration Anxiety Metoprolol Tartrate 12.5 mg 10/30/24 11:05 11/01/24 20:02 Metoprolol Tartrate 12.5 Mg Tablet PO 12.5 mg Q12HR JERROD Administration Morphine Sulfate 2 mg 10/28/24 14:53 Morphine Sulfate (*Crx) 2 Mg/Ml Inj IV PUSH Q2H PRN Pain Rated 7-10 Polyethylene Glycol 17 gm 10/31/24 17:00 11/01/24 17:31 Polyethylene Glycol 3350 17 Gm Powd.Pack PO 17 gm BID JERROD Administration Rosuvastatin Calcium 20 mg 10/29/24 09:00 11/01/24 08:49 Rosuvastatin 20 Mg Tablet PO 20 mg DAILY JERROD Administration Sodium Chloride 10 ml 10/28/24 22:00 11/02/24 06:42 Central Line Flush IV PUSH 10 ml Q8HR JERROD Administration Tamsulosin HCl 0.4 mg 10/29/24 21:00 11/01/24 20:03 Tamsulosin Hcl 0.4 Mg Capsule PO 0.4 mg HS JERROD Administration Radiology Results: ITS Impressions Chest X-Ray 10/31/24 07:13 Impression: 1: Asymmetric right-sided consolidation, consistent with pneumonia. 2: Small right pleural effusion. Labs Labs: Laboratory Results - last 24 hr 11/01/24 11/01/24 11/01/24 08:37 11:52 17:01 WBC RBC Hgb Hct MCV MCH MCHC RDW Plt Count MPV Immature Gran % (Auto) Neut % (Auto) Lymph % (Auto) [place] % (Auto) Eos % (Auto) Baso % (Auto) Lymph # (Auto) [place] # (Auto) Eos # (Auto) Baso # (Auto) Abs Immat Gran (auto) Absolute Neuts (auto) Absolute Nucleated RBC Band Neutrophils % Nucleated RBC % Platelet Estimate Hypochromasia Anisocytosis Schistocytes Sodium Potassium Chloride Carbon Dioxide Anion Gap BUN Creatinine Estim Creat Clear Calc Estimated GFR Glucose POC Capillary Glucose 136 H 287 H 283 H Calcium Total Bilirubin AST ALT Alkaline Phosphatase Total Protein Albumin Crossmatch 11/01/24 11/02/24 11/02/24 20:52 04:31 07:06 WBC 5.8 RBC 2.62 L Hgb 6.8 L* Hct 23.5 L MCV 89.7 MCH 26.0 MCHC 28.9 L RDW 19.2 H Plt Count 180 MPV 9.7 Immature Gran % (Auto) 1.6 H Neut % (Auto) 74.0 H Lymph % (Auto) 12.1 L [place] % (Auto) 9.0 H Eos % (Auto) 2.8 Baso % (Auto) 0.5 Lymph # (Auto) 0.70 L [place] # (Auto) 0.5 Eos # (Auto) 0.2 Baso # (Auto) 0.0 Abs Immat Gran (auto) 0.09 H Absolute Neuts (auto) 4.3 Absolute Nucleated RBC 0.000 Band Neutrophils % Not Reportable Nucleated RBC % 0.0 Platelet Estimate Adequate Hypochromasia 1+ Anisocytosis 1+ Schistocytes None seen Sodium 135 L Potassium 3.9 Chloride 103 Carbon Dioxide 24 Anion Gap 8 BUN 25 H Creatinine 1.27 Estim Creat Clear Calc 39 Estimated GFR 54 L Glucose 165 H POC Capillary Glucose 217 H Calcium 8.4 Total Bilirubin 0.2 AST 65 H ALT 60 H Alkaline Phosphatase 127 H Total Protein 6.7 Albumin 3.1 L Crossmatch See Detail Quality VTE Prophylaxis VTE prophylaxis: mechanical ordered
[2024-11-02] MEDS: CYANOCOBALAMIN 1,000 MCG TABLET 1000 MCG PO (08:46)
[2024-11-02] MEDS: LORATADINE 10 MG TABLET PO (08:46)
[2024-11-02] MEDS: METOPROLOL TARTRATE 12.5 MG TABLET PO ×2 (08:46→21:15)
[2024-11-02] MEDS: ROSUVASTATIN 20 MG TABLET PO (08:46)
[2024-11-02] MEDS: guaiFENesin 12 HR 600 MG TABCR PO ×2 (08:47→21:15)
[2024-11-02] MEDS: FLUTICASONE/UMECLIDIN/VILANTER 100-62.5-25 MCG ELLIPTA 1 PUFF INHALATION (08:58)
[2024-11-02] MEDS: SODIUM CHLORIDE 0.9% IV 250 ML 30 ML IV CONT (09:26)
[2024-11-02] MEDS: FERROUS SULFATE 325 MG TABLET DR BY MOUTH (12:08)
[2024-11-02] MEDS: ACETAMINOPHEN 500 MG TABLET PO ×2 (12:08→21:15)
[2024-11-02] MEDS: CITALOPRAM HYDROBROMIDE 20 MG TABLET PO (12:08)
[2024-11-02] MEDS: INSULIN ASPART (*BKC) 100 UNITS/ML SUB-Q ×2 (12:33→17:30)
--- NOTE | 2024-11-02 14:32 | P.PNONC_ITS ---
Progress Note: A&P Assessment and Plan (1) Anemia: Code(s): D64.9 - Anemia, unspecified Status: Acute Assessment and Plan: Patient with severe anemia with hemoglobin of 6.8 g/dL today. He has been in low 7s during this admission. He has been chronically anemic with hemoglobin 6.9 on 01/04/24, 6.9 on 11/18/23 and 6.1 on 01/19/23. Review of Iron studies is below Ferritin 483 on 10/28/24, 524 on 07/10/24, 498 on 11/30/23, 332 on 08/25/23 and 725 on 02/20/23. Iron saturations 11% on 10/28/24, 20% on 07/20/24, 20% on 11/30/23, 16% on 11/16/23, 16% on 08/28/23, 20% on 04/19/23, 36% on 02/20/23. Patient is on oral ferrous sulfate 325mg daily and received IV Iron sucrose 500mg on 10/31/24. I am not sure if this is iron deficiency based on high ferritin and low iron saturations. 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 He also has CKD stage 3 recorded in chart but GFR is 54 today. I have ordered Soluble Transferrin Receptor (sTfR) blood test today. sTfR/Log ferritin index is next step testing to distinguish iron deficiecny in the setting of anemia of inflammation when ferritin can not be trusted. I will follow with these results. He will need bone marrow biopsy at some point. In the mean time [facility] team has 1 unit of PRBC transfusion ordered. (2) Non-small cell lung cancer: Onset Date: 09/2022 Code(s): C34.90 - Malignant neoplasm of unspecified part of unspecified bronchus or lung Status: Acute Assessment and Plan: Hx of Stage III NSCLC of right lung. S/P chemotherapy with carboplatin, alimta but could not tolerate maintenance durvalumab and was discontinued 10/2023. This admission CT scan chest shows increase in size of consolidation in right hilum which could be infection, inflammation or progression. Dr. Willingham has PET/CT planned for patient as outpatient. He will follow with Dr. Willingham post hospitalization. Subjective Date/time seen: 11/02/24 14:32 Interval history: patient resting well without any overnight events. Remains afebrile. Review of Systems Review of Systems Feels better after antibiotics given for pneumonia. Denies chest pain, hemoptysis. Denies f/c, night sweats. Eating well. Not able to ambulate independently. Denies abdominal pain, n/v/d. No hematochezia or melena. no hematuria. Rest of 12 point ROS is negative. Exam Narrative: General: Alert and oriented, ill appearing male, no acute distress Eyes: EOMI Cardiovascular: Regular rate and rhythm Respiratory: Clear to auscultation bilaterally. On oxygen Gastrointestinal: Soft, non tender Genitourinary: no suprapubic tenderness Musculoskeletal: No edema Skin: warm, dry Neuro: No focal deficits. Objective Data Vital Signs Vital Signs: Vital Signs - 24 hr 11/01/24 16:00 11/01/24 20:00 11/01/24 20:00 Temperature Pulse Rate 99 104 H 104 H Respiratory Rate 22 H Blood Pressure Pulse Oximetry 96 Oxygen Delivery Nasal Cannula Oxygen Flow Rate 2 11/01/24 20:02 11/01/24 22:00 11/02/24 00:00 Temperature 36.7 C Pulse Rate 101 H 101 H 96 Respiratory Rate 22 H Blood Pressure 116/54 L Pulse Oximetry 96 Oxygen Delivery Oxygen Flow Rate 11/02/24 04:00 11/02/24 05:23 11/02/24 06:00 Temperature 36.4 C 36.4 C Pulse Rate 96 99 99 Respiratory Rate 21 H 2 L Blood Pressure 97/62 L 103/48 L Pulse Oximetry 95 95 Oxygen Delivery Nasal Cannula Oxygen Flow Rate 2 11/02/24 08:00 11/02/24 08:46 11/02/24 08:50 Temperature Pulse Rate 96 98 98 Respiratory Rate 20 Blood Pressure Pulse Oximetry 95 Oxygen Delivery Nasal Cannula Oxygen Flow Rate 2 11/02/24 08:59 11/02/24 08:59 11/02/24 09:47 Temperature 36.9 C Pulse Rate 90 90 98 Respiratory Rate 20 20 20 Blood Pressure 109/44 L Pulse Oximetry 96 95 Oxygen Delivery Nasal Cannula Oxygen Flow Rate 2 11/02/24 10:03 11/02/24 11:03 11/02/24 11:55 Temperature 36.4 C 36.7 C 36.7 C Pulse Rate 95 88 85 Respiratory Rate 20 18 18 Blood Pressure 104/63 106/56 L 114/64 Pulse Oximetry 93 96 97 Oxygen Delivery Oxygen Flow Rate 11/02/24 12:00 Temperature Pulse Rate 84 Respiratory Rate Blood Pressure Pulse Oximetry Oxygen Delivery Oxygen Flow Rate Intake/Output Intake/Output: Intake & Output 10/30/24 10/31/24 11/01/24 11/02/24 23:59 23:59 23:59 23:59 Intake Total 1560 1565 3140 790 Output Total 1050 1300 1350 860 Balance 565 123 3635 -70 Meds/Results Medications: Active Medications Generic Name Dose Route Start Last Admin Trade Name Freq PRN Reason Stop Dose Admin Acetaminophen 500 mg 10/28/24 16:19 11/02/24 12:08 Acetaminophen 500 Mg Tablet PO 500 mg Q6H PRN Administration Mild Pain (1-3) or Fever Albuterol/Ipratropium 3 ml 10/28/24 16:19 Ipratropium 0.5 Mg/Albuterol Sulfate 2.5 Mg Ampul.Neb 3 Ml INHALATION Q6HRT PRN Shortness Of Breath Or Wheezing Benzonatate 100 mg 10/28/24 16:19 10/31/24 09:02 Benzonatate 100 Mg Capsule PO 100 mg TID PRN Administration Cough Citalopram Hydrobromide 20 mg 10/29/24 09:00 11/02/24 12:08 Citalopram Hydrobromide 20 Mg Tablet PO 20 mg DAILY JERROD Administration Cyanocobalamin 1,000 mcg 10/29/24 09:00 11/02/24 08:46 Cyanocobalamin 1,000 Mcg Tablet PO 1,000 mcg DAILY JERROD Administration Dextrose 12.5 gm 10/28/24 16:19 Dextrose 50% 25 Gm/50 Ml Syringe IV PUSH PRN PRN Hypoglycemia Protocol Diphenhydramine HCl 12.5 mg 10/29/24 20:16 11/02/24 00:23 Diphenhydramine Hcl Elixir 12.5 Mg/5 Ml Udc PO 12.5 mg HS PRN Administration Insomnia Ferrous Sulfate 325 mg 10/29/24 12:00 11/02/24 12:08 Ferrous Sulfate [address] BY MOUTH 325 mg DAILY@1200 JERROD Administration Fluticasone/Umeclidinium/Vilanterol 1 puff 10/29/24 08:00 11/02/24 08:58 Fluticasone/Umeclidin/Vilanter 100-62.5-25 Mcg Ellipta INHALATION 1 puff DAILYRT JERROD Administration Glucagon 1 mg 10/28/24 16:19 Glucagon For Inj 1 Mg Vial IM PRN PRN Hypoglycemia Protocol Glucose 15 gm 10/28/24 16:19 Glucose Oral Gel 15 Gm Of Glucse In 37.5 Gm Tube PO PRN PRN Hypoglycemia Protocol Guaifenesin 600 mg 10/28/24 21:00 11/02/24 08:47 Guaifenesin 12 Hr 600 Mg Tabcr PO 600 mg Q12HR JERROD Administration Heparin Sodium (Beef Lung) 50 units 10/29/24 09:00 11/02/24 08:47 Heparin Flush 50 Units/5 Ml Syringe IV PUSH 50 units QAM JERROD Administration Heparin Sodium (Beef Lung) 50 units 10/28/24 21:47 10/31/24 17:08 Heparin Flush 50 Units/5 Ml Syringe IV PUSH 50 units PRN PRN Administration after intermittent infusion Heparin Sodium (Beef Lung) 50 units 10/28/24 21:47 Heparin Flush 50 Units/5 Ml Syringe IV PUSH PRN PRN after blood draws Heparin Sodium (Porcine) 500 units 10/28/24 21:47 Heparin Sodium Lock Flush 500 Units/5 Ml Syringe IV PUSH PRN PRN see comments below Ceftriaxone Sodium 1 gm/ 50 mls @ 100 mls/hr 10/29/24 14:00 11/01/24 14:25 Sodium Chloride IVPB 100 mls/hr Q24H JERROD Administration Dextrose 1,000 mls @ 100 mls/hr 10/28/24 16:19 Dextrose 5% 1,000 Ml IVPB PRN PRN Hypoglycemia Protocol Sodium Chloride 250 mls @ 30 mls/hr 11/02/24 06:30 11/02/24 09:26 Normal Saline Iv IV CONT 11/02/24 14:49 30 mls/hr .Q8H20M STA Administration Insulin Aspart 2 - 5 units 10/28/24 17:00 11/02/24 12:33 Insulin Aspart (*Bkc) 100 Units/Ml SUB-Q 2 units TIDWM JERROD Administration Protocol Insulin Glargine 15 units 10/28/24 21:00 11/01/24 20:55 Insulin Glargine (*Bkc) 100 Units/Ml SUB-Q 15 units HS JERROD Administration Levothyroxine Sodium 50 mcg 10/29/24 06:30 11/02/24 06:41 Levothyroxine Sodium 50 Mcg Tablet PO 50 mcg DAILY@0630 JERROD Administration Loratadine 10 mg 10/29/24 09:00 11/02/24 08:46 Loratadine 10 Mg Tablet PO 10 mg QAM JERROD Administration Lorazepam 0.5 mg 10/31/24 10:01 10/31/24 20:25 Lorazepam (*Crx) 0.5 Mg Tablet PO 0.5 mg TID PRN Administration Anxiety Metoprolol Tartrate 12.5 mg 10/30/24 11:05 11/02/24 08:46 Metoprolol Tartrate 12.5 Mg Tablet PO 12.5 mg Q12HR JERROD Administration Morphine Sulfate 2 mg 10/28/24 14:53 Morphine Sulfate (*Crx) 2 Mg/Ml Inj IV PUSH Q2H PRN Pain Rated 7-10 Polyethylene Glycol 17 gm 10/31/24 17:00 11/02/24 08:47 Polyethylene Glycol 3350 17 Gm Powd.Pack PO 17 gm BID JERROD Administration Rosuvastatin Calcium 20 mg 10/29/24 09:00 11/02/24 08:46 Rosuvastatin 20 Mg Tablet PO 20 mg DAILY JERROD Administration Sodium Chloride 10 ml 10/28/24 22:00 11/02/24 06:42 Central Line Flush IV PUSH 10 ml Q8HR JERROD Administration Tamsulosin HCl 0.4 mg 10/29/24 21:00 11/01/24 20:03 Tamsulosin Hcl 0.4 Mg Capsule PO 0.4 mg HS JERROD Administration Radiology Results: ITS Impressions Chest X-Ray 10/31/24 07:13 Impression: 1: Asymmetric right-sided consolidation, consistent with pneumonia. 2: Small right pleural effusion. Labs Labs: Laboratory Results - last 24 hr 11/01/24 11/01/24 11/02/24 17:01 20:52 04:31 WBC 5.8 RBC 2.62 L Hgb 6.8 L* Hct 23.5 L MCV 89.7 MCH 26.0 MCHC 28.9 L RDW 19.2 H Plt Count 180 MPV 9.7 Immature Gran % (Auto) 1.6 H Neut % (Auto) 74.0 H Lymph % (Auto) 12.1 L [place] % (Auto) 9.0 H Eos % (Auto) 2.8 Baso % (Auto) 0.5 Lymph # (Auto) 0.70 L [place] # (Auto) 0.5 Eos # (Auto) 0.2 Baso # (Auto) 0.0 Abs Immat Gran (auto) 0.09 H Absolute Neuts (auto) 4.3 Absolute Nucleated RBC 0.000 Band Neutrophils % Not Reportable Nucleated RBC % 0.0 Platelet Estimate Adequate Hypochromasia 1+ Anisocytosis 1+ Schistocytes None seen Sodium 135 L Potassium 3.9 Chloride 103 Carbon Dioxide 24 Anion Gap 8 BUN 25 H Creatinine 1.27 Estim Creat Clear Calc 39 Estimated GFR 54 L Glucose 165 H POC Capillary Glucose 283 H 217 H Calcium 8.4 Total Bilirubin 0.2 AST 65 H ALT 60 H Alkaline Phosphatase 127 H Total Protein 6.7 Albumin 3.1 L Blood Type Antibody Screen Crossmatch 11/02/24 11/02/24 11/02/24 07:06 08:01 11:48 WBC RBC Hgb Hct MCV MCH MCHC RDW Plt Count MPV Immature Gran % (Auto) Neut % (Auto) Lymph % (Auto) [place] % (Auto) Eos % (Auto) Baso % (Auto) Lymph # (Auto) [place] # (Auto) Eos # (Auto) Baso # (Auto) Abs Immat Gran (auto) Absolute Neuts (auto) Absolute Nucleated RBC Band Neutrophils % Nucleated RBC % Platelet Estimate Hypochromasia Anisocytosis Schistocytes Sodium Potassium Chloride Carbon Dioxide Anion Gap BUN Creatinine Estim Creat Clear Calc Estimated GFR Glucose POC Capillary Glucose 159 H 247 H Calcium Total Bilirubin AST ALT Alkaline Phosphatase Total Protein Albumin Blood Type O Positive Antibody Screen Negative Crossmatch See Detail
[2024-11-02] MEDS: cefTRIAXone 1 GM in SODIUM CHLORIDE 0.9% IV 50 ML 100 ML IVPB (14:49)
[2024-11-02 15:15] LABS: Hematocrit 26.6 % (42.0-52.0); Hemoglobin 7.9 g/dL (14.0-18.0)
[2024-11-02] MEDS: LORazepam (*CRX) 0.5 MG TABLET PO (21:14)
[2024-11-02] MEDS: TAMSULOSIN HCL 0.4 MG CAPSULE PO (21:15)
[2024-11-02] MEDS: INSULIN GLARGINE (*BKC) 100 UNITS/ML 15 UNITS SUB-Q (21:17)
[2024-11-03] VITALS (11 sets, daily range): BP systolic 104–131; BP diastolic 51–70; PULSE 78–105; RESP 16–20; TEMP 36.2–37; O2SAT 91–96
[2024-11-03] MEDS: LEVOTHYROXINE SODIUM 50 MCG TABLET PO (05:24)
[2024-11-03] MEDS: CENTRAL LINE FLUSH 10 ML IV PUSH (05:24)
[2024-11-03 06:02] LABS: Hematocrit 28.4 % (42.0-52.0); Hemoglobin 8.5 g/dL (14.0-18.0); Immature Granulocyte Percent A 1.9 % (0-0.5); Lymphocytes Absolute Auto 0.68 K/mm3 (0.9-3.2); Mean Corpuscular HGB Conc 29.9 g/dl (32-36); Mean Corpuscular Hemoglobin 27.0 pg (26-34); Mean Corpuscular Volume 90.2 fl (80-100); Nucleated Red Blood Cells Absolute Auto 0.000 K/mm3 (0.0-0.012); Nucleated Red Blood Cells Perc 0.0 % (0.0-0.2); Platelet Count Result 203 k/mm3 (150-375); Red Blood Count 3.15 M/mm3 (4.6-6.20); White Blood Count 6.7 K/mm3 (4.5-10.0)
[2024-11-03 06:12] LABS: Alanine Aminotransferase 65 U/L (6-50); Albumin Level 3.1 g/dL (3.5-5.1); Alkaline Phosphatase 127 U/L (38-126); Anion Gap 7 mmol/L (4-12); Aspartate Amino Transferase 61 U/L (17-59); Bilirubin,Total 0.2 mg/dL (0.2-1.3); Blood Urea Nitrogen 22 mg/dL (9-20); Calcium 8.8 mg/dL (8.4-10.2); Carbon Dioxide 25 mmol/L (22-30); Chloride 104 mmol/L (98-107); Estimated CRCL calculation 42 ml/min; Estimated Glomerular Filt Rate 59; Glucose 181 mg/dL (65-110); Potassium 4.5 mmol/L (3.4-5.0); Sodium 136 mmol/L (137-145); Total Protein 6.9 g/dL (6.3-8.2)
[2024-11-03 06:21] LABS: Anisocytosis 1+; Hypochromasia 1+; Schistocytes None Seen
--- NOTE | 2024-11-03 07:25 | P.PNIM_ITS ---
Progress Note: A&P Assessment and Plan (1) Sepsis: Qualifiers: Acute respiratory failure type: with hypoxia Sepsis acute organ dysfunction status: with acute organ dysfunction Sepsis type: sepsis during labor Severe sepsis acute organ dysfunction type: acute respiratory failure Severe sepsis shock status: without septic shock Qualified Code(s): O75.3 - Other infection during labor; A41.9 - Sepsis, unspecified organism; J96.01 - Acute respiratory failure with hypoxia; R65.20 - Severe sepsis without septic shock Code(s): A41.9 - Sepsis, unspecified organism Status: Acute Assessment and Plan: * sepsis criteria met with HR greater than 90, RR greater than 20. No leukocytosis. +hypoxia. * lactic acid: 3.3 -> 1.0 * procalcitonin 0.2 * 30 mL/kg = 2100, given 2L bolus in the ED * suspected source: pneumonia - management as below * continue antibiotics * blood cultures drawn on 10/28 - NGTD * monitor hemodynamic stability * No evidence of sepsis at this time * Remains afebrile, non-tachycardic, non-tachypneic (2) Pneumonia: Qualifiers: Laterality: right Lung location: unspecified part of lung Pneumonia type: due to unspecified organism Qualified Code(s): J18.9 - Pneumonia, unspecified organism Code(s): J18.9 - Pneumonia, unspecified organism Status: Acute Assessment and Plan: * CT chest 10/22 with interval increase in the size of a consolidation in the right mid lung, differential includes postobstructive atelectasis, pneumonia or malignancy. PET/CT recommended. * admit CXR with right-sided airspace disease, small right pleural effusion * complicating factors: previous hx of adenocarcinoma of the lung and chronic right-sided pleural effusion * MRSA DNA negative * continue ceftriaxone and azithromycin * supportive care: Mucinex, Tessalon Perles, Tylenol, DuoNebs * new supplemental O2 (3L) to maintain O2 sat greater than 92%, wean as tolerated * Will attempt to transition to oral coverage of antibiotics within the next 24 hours in preparation for discharge (3) Tachycardia: Code(s): R00.0 - Tachycardia, unspecified Status: Acute Assessment and Plan: * Patient and daughter states that patient has been dealing with baseline tachycardia for the past several weeks with a baseline heart rate in the 100s * Daughter states that patient has been dealing with recurrent pneumonia infections and this increases patient's baseline heart rate into the 120s + * Cross cover note on 10/29 - HR in the 120s, was given 5 mg IV metoprolol and heart rate improved to 100-110 * Likely secondary to underlying infection, lung cancer * Blood cultures NGTD but HR remains elevated * Will initiate Metoprolol BID, consult cardiology for further recommendations * Cardio consult - appreciate further recommendations * No specific treatment for this aside treating underlying pneumonia and sepsis. * Cardiology signs off * 11/02: Hrs remain stable in the 90s (4) Acute and chronic respiratory failure with hypoxia: Code(s): J96.21 - Acute and chronic respiratory failure with hypoxia Status: Acute Assessment and Plan: * arrived 88% on RA * at baseline requires 2 L nasal cannula at nighttime, now requiring 3 L at all times to maintain an O2 sat greater than 92%. * likely secondary to pneumonia * wean O2 as able * respiratory hygiene, incentive spirometry * 11/02: O2 93% on 2L * Has 02 set up at home but will obtain Home 02 eval as this is a relatively new requirement (5) Chronic anemia: Code(s): D64.9 - Anemia, unspecified Status: Chronic Assessment and Plan: * denies blood in his stool, has been dark but he is on iron * Hgb 7.5 upon admission, previously 10.1 on 07/10/2024 * Hx of chronic anemia of chronic disease * iron and t sat low. * check stool occult * transfuse if <7 * trend H&H * continue iron supplement * 11/02: Hgb 6.8 * Transfuse 1 unit PRBC * Will discuss with Heme/onc regarding possible need of Procrit (6) Heme positive stool: Code(s): R19.5 - Other fecal abnormalities Status: Acute Assessment and Plan: * Likely multifactorial - 2/2 to renal insufficiency and underlying iron deficiency * Hgb 7.5 upon admission * Hx: Chronic anemia, malignancy * transfuse if <7 * trend H&H * stool occult + * Heme consult * Iron infusion * consider Procrit if pt remains anemia * No indication for BM bx at this time * GI consult * Poor endoscopic candidate unless showing signs of active GI bleeding * Follow up with Oncology in outpt setting and if showing evidence of GI bleed - can be referred to GI (7) Adenocarcinoma, lung: Qualifiers: Laterality: right Qualified Code(s): C34.91 - Malignant neoplasm of unspecified part of right bronchus or lung Code(s): C34.90 - Malignant neoplasm of unspecified part of unspecified bronchus or lung Status: Acute Assessment and Plan: * hx of adenocarcinoma of the lung s/p chemo radiation. Previously required a PleurX for a chronic pleural effusion of the right side. * follows with Tarsha BEJARANO * needs PET scan as outpatient * Heme/onc consult to assess findings on CT chest * Reorder PET scan as outpt to assess interval increase consolidation in the right mid lung (8) COPD (chronic obstructive pulmonary disease): Qualifiers: COPD type: unspecified COPD Qualified Code(s): J44.9 - Chronic obstructive pulmonary disease, unspecified Code(s): J44.9 - Chronic obstructive pulmonary disease, unspecified Status: Acute Assessment and Plan: * Sourav SANDERSN (9) Type 2 diabetes mellitus: Code(s): E11.9 - Type 2 diabetes mellitus without complications Status: Chronic Assessment and Plan: * A1c 6.4% on 06/11/2024 * hold metformin * hypoglycemia protocol * POC blood glucose ACHS * home medication: Continue Lantus 15 units HS. * low dose SSI (10) Chronic kidney disease, stage 3: Qualifiers: Chronic kidney disease stage 3 subtype: unspecified whether 3a or 3b Qualified Code(s): N18.30 - Chronic kidney disease, stage 3 unspecified Code(s): N18.30 - Chronic kidney disease, stage 3 unspecified Status: Chronic Assessment and Plan: * creatinine 1.21, BUN 23, GFR 57 upon admission * baseline creatinine: 1-1.2 * trend renal function * trend electrolytes, correct as needed (11) Obstructive sleep apnea: Code(s): G47.33 - Obstructive sleep apnea (adult) (pediatric) Status: Chronic Assessment and Plan: * wears 2L NC at night, currently requiring during daytime hours. Continue supplemental O2 to maintain O2 sat greater than 92%. Wean to baseline nocturnal needs as tolerated. Plan DVT Prophylaxis: scds Code Status: Full code Subjective Date/time seen: 11/03/24 07:25 Interval history: 84 y/o M with PMH of COPD CAD CKD S3, chronic respiratory failure with hypoxia, colon cancer, diabetes, non-small cell lung cancer believed to be in remission, hyperlipidemia, hypertension, thrombocytopenia, chronic anemia, and ROBIN presents here with shortness of breath and cough. 11/03/2024 Patient sitting comfortably at bedside at time examination. Review of Systems Review of Systems: All systems reviewed & are unremarkable except as noted in HPI and below Exam Narrative: General: NAD, appears deconditioned Eyes: EOMI ENT: neck supple Cardiovascular: Regular rate and rhythm Respiratory: Clear to auscultation, respirations even and unlabored on 2.5L NC Gastrointestinal: Soft, non tender Genitourinary: no suprapubic tenderness Musculoskeletal: No edema Skin: warm, dry Neuro: Alert. Psych: Mood appropriate Const: General: comfortable and no acute distress Other: , male, elderly, chronically ill-appearing HENMT: Face/Nose/Sinus: Normal nares present Mouth: Yes moist mucous membranes Eyes: General: appearance normal, both eyes and all related structures Sclera: sclerae normal Pupils: Equal, round and reactive pupils present EOM: EOMs intact bilaterally Resp: Effort & Inspection: normal respiratory effort Other: Coarse breath sounds bilaterally, more significant at the bases. Nasal cannula place tolerating well. Cardio: Rate: regular rate Rhythm: regular rhythm Other: +murmur GI: Other: Abdomen soft, nondistended, nontender. Normoactive bowel sounds in all quadrants. Skin: General skin exam: normal color and no rashes or lesions noted Wounds: no wounds Neuro: Cranial nerves: Yes Equal, round and reactive pupils present Speech: normal speech Motor exam (neuro): 5/5 motor strength present throughout Sensory Exam: normal sensation Other: A&O x4 Extrem: General: normal to inspection Psych: Mental Status: mental status grossly normal Affect: normal affect Other: Good insight and judgment, pleasant Objective Data Vital Signs Vital Signs: Vital Signs - 24 hr 11/02/24 08:00 11/02/24 08:46 11/02/24 08:50 Temperature Pulse Rate 96 98 98 Respiratory Rate 20 Blood Pressure Pulse Oximetry 95 Oxygen Delivery Nasal Cannula Oxygen Flow Rate 2 11/02/24 08:59 11/02/24 08:59 11/02/24 09:47 Temperature 98.5 F Pulse Rate 90 90 98 Respiratory Rate 20 20 20 Blood Pressure 109/44 L Pulse Oximetry 96 95 Oxygen Delivery Nasal Cannula Oxygen Flow Rate 2 11/02/24 10:03 11/02/24 11:03 11/02/24 11:55 Temperature 97.6 F 98.1 F 98.1 F Pulse Rate 95 88 85 Respiratory Rate 20 18 18 Blood Pressure 104/63 106/56 L 114/64 Pulse Oximetry 93 96 97 Oxygen Delivery Oxygen Flow Rate 11/02/24 12:00 11/02/24 14:00 11/02/24 16:00 Temperature 98.6 F Pulse Rate 84 54 L 87 Respiratory Rate 20 Blood Pressure 122/62 Pulse Oximetry 95 Oxygen Delivery Oxygen Flow Rate 11/02/24 21:00 11/02/24 21:00 11/02/24 21:13 Temperature 97.6 F Pulse Rate 82 85 Respiratory Rate 18 Blood Pressure 115/67 Pulse Oximetry 93 92 Oxygen Delivery Nasal Cannula Oxygen Flow Rate 3 11/02/24 21:15 11/03/24 00:00 11/03/24 04:00 Temperature Pulse Rate 84 83 78 Respiratory Rate Blood Pressure Pulse Oximetry Oxygen Delivery Oxygen Flow Rate 11/03/24 05:24 Temperature 98.6 F Pulse Rate 87 Respiratory Rate 16 Blood Pressure 131/70 Pulse Oximetry 96 Oxygen Delivery Oxygen Flow Rate Intake/Output Intake/Output: Intake & Output 10/31/24 11/01/24 11/02/24 11/03/24 23:59 23:59 23:59 23:59 Intake Total 1565 3190 3200 0 Output Total 1300 1350 1510 650 Balance 265 6710 3700 -650 Meds/Results Medications: Active Medications Generic Name Dose Route Start Last Admin Trade Name Freq PRN Reason Stop Dose Admin Acetaminophen 500 mg 10/28/24 16:19 11/02/24 21:15 Acetaminophen 500 Mg Tablet PO 500 mg Q6H PRN Administration Mild Pain (1-3) or Fever Albuterol/Ipratropium 3 ml 10/28/24 16:19 Ipratropium 0.5 Mg/Albuterol Sulfate 2.5 Mg Ampul.Neb 3 Ml INHALATION Q6HRT PRN Shortness Of Breath Or Wheezing Benzonatate 100 mg 10/28/24 16:19 10/31/24 09:02 Benzonatate 100 Mg Capsule PO 100 mg TID PRN Administration Cough Citalopram Hydrobromide 20 mg 10/29/24 09:00 11/02/24 12:08 Citalopram Hydrobromide 20 Mg Tablet PO 20 mg DAILY JERROD Administration Cyanocobalamin 1,000 mcg 10/29/24 09:00 11/02/24 08:46 Cyanocobalamin 1,000 Mcg Tablet PO 1,000 mcg DAILY JERROD Administration Dextrose 12.5 gm 10/28/24 16:19 Dextrose 50% 25 Gm/50 Ml Syringe IV PUSH PRN PRN Hypoglycemia Protocol Diphenhydramine HCl 12.5 mg 10/29/24 20:16 11/02/24 00:23 Diphenhydramine Hcl Elixir 12.5 Mg/5 Ml Udc PO 12.5 mg HS PRN Administration Insomnia Ferrous Sulfate 325 mg 10/29/24 12:00 11/02/24 12:08 Ferrous Sulfate [address] BY MOUTH 325 mg DAILY@1200 JERROD Administration Fluticasone/Umeclidinium/Vilanterol 1 puff 10/29/24 08:00 11/02/24 08:58 Fluticasone/Umeclidin/Vilanter 100-62.5-25 Mcg Ellipta INHALATION 1 puff DAILYRT JERROD Administration Glucagon 1 mg 10/28/24 16:19 Glucagon For Inj 1 Mg Vial IM PRN PRN Hypoglycemia Protocol Glucose 15 gm 10/28/24 16:19 Glucose Oral Gel 15 Gm Of Glucse In 37.5 Gm Tube PO PRN PRN Hypoglycemia Protocol Guaifenesin 600 mg 10/28/24 21:00 11/02/24 21:15 Guaifenesin 12 Hr 600 Mg Tabcr PO 600 mg Q12HR JERROD Administration Heparin Sodium (Beef Lung) 50 units 10/29/24 09:00 11/02/24 08:47 Heparin Flush 50 Units/5 Ml Syringe IV PUSH 50 units QAM JERROD Administration Heparin Sodium (Beef Lung) 50 units 10/28/24 21:47 10/31/24 17:08 Heparin Flush 50 Units/5 Ml Syringe IV PUSH 50 units PRN PRN Administration after intermittent infusion Heparin Sodium (Beef Lung) 50 units 10/28/24 21:47 11/03/24 05:27 Heparin Flush 50 Units/5 Ml Syringe IV PUSH 50 units PRN PRN Administration after blood draws Heparin Sodium (Porcine) 500 units 10/28/24 21:47 Heparin Sodium Lock Flush 500 Units/5 Ml Syringe IV PUSH PRN PRN see comments below Ceftriaxone Sodium 1 gm/ 50 mls @ 100 mls/hr 10/29/24 14:00 11/02/24 14:49 Sodium Chloride IVPB 100 mls/hr Q24H JERROD Administration Dextrose 1,000 mls @ 100 mls/hr 10/28/24 16:19 Dextrose 5% 1,000 Ml IVPB PRN PRN Hypoglycemia Protocol Insulin Aspart 2 - 5 units 10/28/24 17:00 11/02/24 17:30 Insulin Aspart (*Bkc) 100 Units/Ml SUB-Q 3 units TIDWM JERROD Administration Protocol Insulin Glargine 15 units 10/28/24 21:00 11/02/24 21:17 Insulin Glargine (*Bkc) 100 Units/Ml SUB-Q 15 units HS JERROD Administration Levothyroxine Sodium 50 mcg 10/29/24 06:30 11/03/24 05:24 Levothyroxine Sodium 50 Mcg Tablet PO 50 mcg DAILY@0630 JERROD Administration Loratadine 10 mg 10/29/24 09:00 11/02/24 08:46 Loratadine 10 Mg Tablet PO 10 mg QAM JERROD Administration Lorazepam 0.5 mg 10/31/24 10:01 11/02/24 21:14 Lorazepam (*Crx) 0.5 Mg Tablet PO 0.5 mg TID PRN Administration Anxiety Metoprolol Tartrate 12.5 mg 10/30/24 11:05 11/02/24 21:15 Metoprolol Tartrate 12.5 Mg Tablet PO 12.5 mg Q12HR JERROD Administration Morphine Sulfate 2 mg 10/28/24 14:53 Morphine Sulfate (*Crx) 2 Mg/Ml Inj IV PUSH Q2H PRN Pain Rated 7-10 Polyethylene Glycol 17 gm 10/31/24 17:00 11/02/24 17:30 Polyethylene Glycol 3350 17 Gm Powd.Pack PO 17 gm BID JERROD Administration Rosuvastatin Calcium 20 mg 10/29/24 09:00 11/02/24 08:46 Rosuvastatin 20 Mg Tablet PO 20 mg DAILY JERROD Administration Sodium Chloride 10 ml 10/28/24 22:00 11/03/24 05:24 Central Line Flush IV PUSH 10 ml Q8HR JERROD Administration Tamsulosin HCl 0.4 mg 10/29/24 21:00 11/02/24 21:15 Tamsulosin Hcl 0.4 Mg Capsule PO 0.4 mg HS JERROD Administration Radiology Results: ITS Impressions Chest X-Ray 10/31/24 07:13 Impression: 1: Asymmetric right-sided consolidation, consistent with pneumonia. 2: Small right pleural effusion. Labs Labs: Laboratory Results - last 24 hr 11/02/24 11/02/24 11/02/24 07:06 08:01 11:48 WBC RBC Hgb Hct MCV MCH MCHC RDW Plt Count MPV Immature Gran % (Auto) Neut % (Auto) Lymph % (Auto) Mayes % (Auto) Eos % (Auto) Baso % (Auto) Lymph # (Auto) Mayes # (Auto) Eos # (Auto) Baso # (Auto) Abs Immat Gran (auto) Absolute Neuts (auto) Absolute Nucleated RBC Band Neutrophils % Nucleated RBC % Platelet Estimate Hypochromasia Anisocytosis Schistocytes Sodium Potassium Chloride Carbon Dioxide Anion Gap BUN Creatinine Estim Creat Clear Calc Estimated GFR Glucose POC Capillary Glucose 159 H 247 H Calcium Total Bilirubin AST ALT Alkaline Phosphatase Total Protein Albumin Blood Type O Positive Antibody Screen Negative Crossmatch See Detail 11/02/24 11/02/24 11/02/24 14:51 16:59 21:16 WBC RBC Hgb 7.9 L Hct 26.6 L MCV MCH MCHC RDW Plt Count MPV Immature Gran % (Auto) Neut % (Auto) Lymph % (Auto) Mayes % (Auto) Eos % (Auto) Baso % (Auto) Lymph # (Auto) Mayes # (Auto) Eos # (Auto) Baso # (Auto) Abs Immat Gran (auto) Absolute Neuts (auto) Absolute Nucleated RBC Band Neutrophils % Nucleated RBC % Platelet Estimate Hypochromasia Anisocytosis Schistocytes Sodium Potassium Chloride Carbon Dioxide Anion Gap BUN Creatinine Estim Creat Clear Calc Estimated GFR Glucose POC Capillary Glucose 256 H 247 H Calcium Total Bilirubin AST ALT Alkaline Phosphatase Total Protein Albumin Blood Type Antibody Screen Crossmatch 11/03/24 05:35 WBC 6.7 RBC 3.15 L Hgb 8.5 L Hct 28.4 L MCV 90.2 MCH 27.0 MCHC 29.9 L RDW 18.4 H Plt Count 203 MPV 9.6 Immature Gran % (Auto) 1.9 H Neut % (Auto) 77.2 H Lymph % (Auto) 10.2 L Mayes % (Auto) 7.3 Eos % (Auto) 2.7 Baso % (Auto) 0.7 Lymph # (Auto) 0.68 L Mayes # (Auto) 0.5 Eos # (Auto) 0.2 Baso # (Auto) 0.1 Abs Immat Gran (auto) 0.13 H Absolute Neuts (auto) 5.2 Absolute Nucleated RBC 0.000 Band Neutrophils % Not Reportable Nucleated RBC % 0.0 Platelet Estimate Adequate Hypochromasia 1+ Anisocytosis 1+ Schistocytes None seen Sodium 136 L Potassium 4.5 Chloride 104 Carbon Dioxide 25 Anion Gap 7 BUN 22 H Creatinine 1.18 Estim Creat Clear Calc 42 Estimated GFR 59 Glucose 181 H POC Capillary Glucose Calcium 8.8 Total Bilirubin 0.2 AST 61 H ALT 65 H Alkaline Phosphatase 127 H Total Protein 6.9 Albumin 3.1 L Blood Type Antibody Screen Crossmatch Quality VTE Prophylaxis VTE prophylaxis: mechanical ordered
[2024-11-03] MEDS: FLUTICASONE/UMECLIDIN/VILANTER 100-62.5-25 MCG ELLIPTA 1 PUFF INHALATION (09:12)
[2024-11-03] MEDS: METOPROLOL TARTRATE 12.5 MG TABLET PO (09:25)
[2024-11-03] MEDS: CITALOPRAM HYDROBROMIDE 20 MG TABLET PO (09:26)
[2024-11-03] MEDS: ROSUVASTATIN 20 MG TABLET PO (09:26)
[2024-11-03] MEDS: CYANOCOBALAMIN 1,000 MCG TABLET 1000 MCG PO (09:26)
[2024-11-03] MEDS: guaiFENesin 12 HR 600 MG TABCR PO (09:26)
[2024-11-03] MEDS: LORATADINE 10 MG TABLET PO (09:26)
--- NOTE | 2024-11-03 11:33 | PC.NURSE ---
Patient refused to allow tech to obtain his BS at 1130 stating: I am going home today anyway, I do not need to get stuck anymore. This nurse explained to patient that his discharge was not in the system tai and he would still be eating lunch at the hospital. Patient still refused.
[2024-11-03] MEDS: FERROUS SULFATE 325 MG TABLET DR BY MOUTH (12:42)
--- NOTE | 2024-11-03 14:23 | P.PNONC_ITS ---
Progress Note: A&P Assessment and Plan (1) Anemia: Code(s): D64.9 - Anemia, unspecified Status: Acute Assessment and Plan: Patient with severe anemia with hemoglobin of 6.8 g/dL today. He has been in low 7s during this admission. He has been chronically anemic with hemoglobin 6.9 on 01/04/24, 6.9 on 11/18/23 and 6.1 on 01/19/23. Review of Iron studies is below Ferritin 483 on 10/28/24, 524 on 07/10/24, 498 on 11/30/23, 332 on 08/25/23 and 725 on 02/20/23. Iron saturations 11% on 10/28/24, 20% on 07/20/24, 20% on 11/30/23, 16% on 11/16/23, 16% on 08/28/23, 20% on 04/19/23, 36% on 02/20/23. Patient is on oral ferrous sulfate 325mg daily and received IV Iron sucrose 500mg on 10/31/24. I am not sure if this is iron deficiency based on high ferritin and low iron saturations. 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 He also has CKD stage 3 recorded in chart but GFR is 54 today. I have ordered Soluble Transferrin Receptor (sTfR) blood test today. sTfR/Log ferritin index is next step testing to distinguish iron deficiecny in the setting of anemia of inflammation when ferritin can not be trusted. He has a follow up with Dr. Willingham as outpatient and will follow up with these results as well. Patient has poor PS with prior lung cancer and not sure if bone marrow biopsy will be beneficial. (2) Non-small cell lung cancer: Onset Date: 09/2022 Code(s): C34.90 - Malignant neoplasm of unspecified part of unspecified bronchus or lung Status: Acute Assessment and Plan: Hx of Stage III NSCLC of right lung. S/P chemotherapy with carboplatin, alimta but could not tolerate maintenance durvalumab and was discontinued 10/2023. This admission CT scan chest shows increase in size of consolidation in right hilum which could be infection, inflammation or progression. Dr. Willingham has PET/CT planned for patient as outpatient. He will follow with Dr. Willingham post hospitalization. Subjective Date/time seen: 11/03/24 14:23 Interval history: Patient sitting up on chair. States that this is all I can do and the best I can be. Review of Systems Review of Systems Feels better after antibiotics given for pneumonia. Denies chest pain, hemoptysis. Denies f/c, night sweats. Eating well. Not able to ambulate independently. Denies abdominal pain, n/v/d. No hematochezia or melena. no hematuria. Rest of 12 point ROS is negative. Exam Narrative: General: Alert and oriented, ill appearing male, no acute distress Eyes: EOMI Cardiovascular: Regular rate and rhythm Respiratory: Clear to auscultation bilaterally. On oxygen Gastrointestinal: Soft, non tender Genitourinary: no suprapubic tenderness Musculoskeletal: No edema Skin: warm, dry Neuro: No focal deficits. Objective Data Vital Signs Vital Signs: Vital Signs - 24 hr 11/02/24 16:00 11/02/24 21:00 11/02/24 21:00 Temperature Pulse Rate 87 82 Respiratory Rate Blood Pressure Pulse Oximetry 93 Oxygen Delivery Nasal Cannula Oxygen Flow Rate 3 11/02/24 21:13 11/02/24 21:15 11/03/24 00:00 Temperature 36.4 C Pulse Rate 85 84 83 Respiratory Rate 18 Blood Pressure 115/67 Pulse Oximetry 92 Oxygen Delivery Oxygen Flow Rate 11/03/24 04:00 11/03/24 05:24 11/03/24 08:00 Temperature 37.0 C Pulse Rate 78 87 84 Respiratory Rate 16 Blood Pressure 131/70 Pulse Oximetry 96 Oxygen Delivery Oxygen Flow Rate 11/03/24 09:12 11/03/24 09:25 11/03/24 12:00 Temperature Pulse Rate 101 H 94 Respiratory Rate 20 Blood Pressure Pulse Oximetry 95 Oxygen Delivery Nasal Cannula Oxygen Flow Rate 2 Intake/Output Intake/Output: Intake & Output 10/31/24 11/01/24 11/02/24 11/03/24 23:59 23:59 23:59 23:59 Intake Total 1565 3190 3200 480 Output Total 1300 1350 1510 1050 Balance 265 8850 8380 -512 Meds/Results Medications: Active Medications Generic Name Dose Route Start Last Admin Trade Name Freq PRN Reason Stop Dose Admin Acetaminophen 500 mg 10/28/24 16:19 11/02/24 21:15 Acetaminophen 500 Mg Tablet PO 500 mg Q6H PRN Administration Mild Pain (1-3) or Fever Albuterol/Ipratropium 3 ml 10/28/24 16:19 Ipratropium 0.5 Mg/Albuterol Sulfate 2.5 Mg Ampul.Neb 3 Ml INHALATION Q6HRT PRN Shortness Of Breath Or Wheezing Benzonatate 100 mg 10/28/24 16:19 10/31/24 09:02 Benzonatate 100 Mg Capsule PO 100 mg TID PRN Administration Cough Citalopram Hydrobromide 20 mg 10/29/24 09:00 11/03/24 09:26 Citalopram Hydrobromide 20 Mg Tablet PO 20 mg DAILY JERROD Administration Cyanocobalamin 1,000 mcg 10/29/24 09:00 11/03/24 09:26 Cyanocobalamin 1,000 Mcg Tablet PO 1,000 mcg DAILY JERROD Administration Dextrose 12.5 gm 10/28/24 16:19 Dextrose 50% 25 Gm/50 Ml Syringe IV PUSH PRN PRN Hypoglycemia Protocol Diphenhydramine HCl 12.5 mg 10/29/24 20:16 11/02/24 00:23 Diphenhydramine Hcl Elixir 12.5 Mg/5 Ml Udc PO 12.5 mg HS PRN Administration Insomnia Ferrous Sulfate 325 mg 10/29/24 12:00 11/03/24 12:42 Ferrous Sulfate [address] BY MOUTH 325 mg DAILY@1200 JERROD Administration Fluticasone/Umeclidinium/Vilanterol 1 puff 10/29/24 08:00 11/03/24 09:12 Fluticasone/Umeclidin/Vilanter 100-62.5-25 Mcg Ellipta INHALATION 1 puff DAILYRT JERROD Administration Glucagon 1 mg 10/28/24 16:19 Glucagon For Inj 1 Mg Vial IM PRN PRN Hypoglycemia Protocol Glucose 15 gm 10/28/24 16:19 Glucose Oral Gel 15 Gm Of Glucse In 37.5 Gm Tube PO PRN PRN Hypoglycemia Protocol Guaifenesin 600 mg 10/28/24 21:00 11/03/24 09:26 Guaifenesin 12 Hr 600 Mg Tabcr PO 600 mg Q12HR JERROD Administration Heparin Sodium (Beef Lung) 50 units 10/29/24 09:00 11/03/24 09:25 Heparin Flush 50 Units/5 Ml Syringe IV PUSH 50 units QAM JERROD Administration Heparin Sodium (Beef Lung) 50 units 10/28/24 21:47 10/31/24 17:08 Heparin Flush 50 Units/5 Ml Syringe IV PUSH 50 units PRN PRN Administration after intermittent infusion Heparin Sodium (Beef Lung) 50 units 10/28/24 21:47 11/03/24 05:27 Heparin Flush 50 Units/5 Ml Syringe IV PUSH 50 units PRN PRN Administration after blood draws Heparin Sodium (Porcine) 500 units 10/28/24 21:47 Heparin Sodium Lock Flush 500 Units/5 Ml Syringe IV PUSH PRN PRN see comments below Ceftriaxone Sodium 1 gm/ 50 mls @ 100 mls/hr 10/29/24 14:00 11/02/24 14:49 Sodium Chloride IVPB 100 mls/hr Q24H JERROD Administration Dextrose 1,000 mls @ 100 mls/hr 10/28/24 16:19 Dextrose 5% 1,000 Ml IVPB PRN PRN Hypoglycemia Protocol Insulin Aspart 2 - 5 units 10/28/24 17:00 11/03/24 12:43 Insulin Aspart (*Bkc) 100 Units/Ml SUB-Q Not Given TIDWM JERROD Protocol Insulin Glargine 15 units 10/28/24 21:00 11/02/24 21:17 Insulin Glargine (*Bkc) 100 Units/Ml SUB-Q 15 units HS JERROD Administration Levothyroxine Sodium 50 mcg 10/29/24 06:30 11/03/24 05:24 Levothyroxine Sodium 50 Mcg Tablet PO 50 mcg DAILY@0630 JERROD Administration Loratadine 10 mg 10/29/24 09:00 11/03/24 09:26 Loratadine 10 Mg Tablet PO 10 mg QAM JERROD Administration Lorazepam 0.5 mg 10/31/24 10:01 11/02/24 21:14 Lorazepam (*Crx) 0.5 Mg Tablet PO 0.5 mg TID PRN Administration Anxiety Metoprolol Tartrate 12.5 mg 10/30/24 11:05 11/03/24 09:25 Metoprolol Tartrate 12.5 Mg Tablet PO 12.5 mg Q12HR JERROD Administration Morphine Sulfate 2 mg 10/28/24 14:53 Morphine Sulfate (*Crx) 2 Mg/Ml Inj IV PUSH Q2H PRN Pain Rated 7-10 Polyethylene Glycol 17 gm 10/31/24 17:00 11/03/24 09:24 Polyethylene Glycol 3350 17 Gm Powd.Pack PO 17 gm BID JERROD Administration Rosuvastatin Calcium 20 mg 10/29/24 09:00 11/03/24 09:26 Rosuvastatin 20 Mg Tablet PO 20 mg DAILY JERROD Administration Sodium Chloride 10 ml 10/28/24 22:00 11/03/24 05:24 Central Line Flush IV PUSH 10 ml Q8HR JERROD Administration Tamsulosin HCl 0.4 mg 10/29/24 21:00 11/02/24 21:15 Tamsulosin Hcl 0.4 Mg Capsule PO 0.4 mg HS JERROD Administration Radiology Results: ITS Impressions Chest X-Ray 10/31/24 07:13 Impression: 1: Asymmetric right-sided consolidation, consistent with pneumonia. 2: Small right pleural effusion. Labs Labs: Laboratory Results - last 24 hr 11/02/24 11/02/24 11/02/24 14:51 16:59 21:16 WBC RBC Hgb 7.9 L Hct 26.6 L MCV MCH MCHC RDW Plt Count MPV Immature Gran % (Auto) Neut % (Auto) Lymph % (Auto) Blount % (Auto) Eos % (Auto) Baso % (Auto) Lymph # (Auto) Blount # (Auto) Eos # (Auto) Baso # (Auto) Abs Immat Gran (auto) Absolute Neuts (auto) Absolute Nucleated RBC Band Neutrophils % Nucleated RBC % Platelet Estimate Hypochromasia Anisocytosis Schistocytes Sodium Potassium Chloride Carbon Dioxide Anion Gap BUN Creatinine Estim Creat Clear Calc Estimated GFR Glucose POC Capillary Glucose 256 H 247 H Calcium Total Bilirubin AST ALT Alkaline Phosphatase Total Protein Albumin 11/03/24 11/03/24 05:35 07:47 WBC 6.7 RBC 3.15 L Hgb 8.5 L Hct 28.4 L MCV 90.2 MCH 27.0 MCHC 29.9 L RDW 18.4 H Plt Count 203 MPV 9.6 Immature Gran % (Auto) 1.9 H Neut % (Auto) 77.2 H Lymph % (Auto) 10.2 L Blount % (Auto) 7.3 Eos % (Auto) 2.7 Baso % (Auto) 0.7 Lymph # (Auto) 0.68 L Blount # (Auto) 0.5 Eos # (Auto) 0.2 Baso # (Auto) 0.1 Abs Immat Gran (auto) 0.13 H Absolute Neuts (auto) 5.2 Absolute Nucleated RBC 0.000 Band Neutrophils % Not Reportable Nucleated RBC % 0.0 Platelet Estimate Adequate Hypochromasia 1+ Anisocytosis 1+ Schistocytes None seen Sodium 136 L Potassium 4.5 Chloride 104 Carbon Dioxide 25 Anion Gap 7 BUN 22 H Creatinine 1.18 Estim Creat Clear Calc 42 Estimated GFR 59 Glucose 181 H POC Capillary Glucose 160 H Calcium 8.8 Total Bilirubin 0.2 AST 61 H ALT 65 H Alkaline Phosphatase 127 H Total Protein 6.9 Albumin 3.1 L
--- NOTE | 2024-11-03 14:46 | P.DS_ITS ---
DS: Admitting Diagnosis Discharge Date 11/03/2024 Admitting Diagnosis Pneumonia, sepsis DS: Discharge Diagnosis Discharge Diagnosis (1) Sepsis: Qualifiers: Sepsis type: sepsis during labor Sepsis acute organ dysfunction status: with acute organ dysfunction Severe sepsis acute organ dysfunction type: acute respiratory failure Acute respiratory failure type: with hypoxia Severe sepsis shock status: without septic shock Qualified Code(s): O75.3 - Other infection during labor; A41.9 - Sepsis, unspecified organism; J96.01 - Acute respiratory failure with hypoxia; R65.20 - Severe sepsis without septic shock Code(s): A41.9 - Sepsis, unspecified organism Status: Acute Assessment and Plan: * sepsis criteria met with HR greater than 90, RR greater than 20. No leukocytosis. +hypoxia. * lactic acid: 3.3 -> 1.0 * procalcitonin 0.2 * 30 mL/kg = 2100, given 2L bolus in the ED * suspected source: pneumonia - management as below * continue antibiotics * blood cultures drawn on 10/28 - T * monitor hemodynamic stability * No evidence of sepsis at this time * Remains afebrile, non-tachycardic, non-tachypneic (2) Pneumonia: Qualifiers: Laterality: right Lung location: unspecified part of lung Pneumonia type: due to unspecified organism Qualified Code(s): J18.9 - Pneumonia, unspecified organism Code(s): J18.9 - Pneumonia, unspecified organism Status: Acute Assessment and Plan: * CT chest 10/22 with interval increase in the size of a consolidation in the right mid lung, differential includes postobstructive atelectasis, pneumonia or malignancy. PET/CT recommended. * admit CXR with right-sided airspace disease, small right pleural effusion * complicating factors: previous hx of adenocarcinoma of the lung and chronic right-sided pleural effusion * MRSA DNA negative * continue ceftriaxone and azithromycin * supportive care: Mucinex, Tessalon Perles, Tylenol, DuoNebs * new supplemental O2 (3L) to maintain O2 sat greater than 92%, wean as tolerated * Will attempt to transition to oral coverage of antibiotics within the next 24 hours in preparation for discharge (3) Tachycardia: Code(s): R00.0 - Tachycardia, unspecified Status: Acute Assessment and Plan: * Patient and daughter states that patient has been dealing with baseline tachycardia for the past several weeks with a baseline heart rate in the 100s * Daughter states that patient has been dealing with recurrent pneumonia infections and this increases patient's baseline heart rate into the 120s + * Cross cover note on 10/29 - HR in the 120s, was given 5 mg IV metoprolol and heart rate improved to 100-110 * Likely secondary to underlying infection, lung cancer * Blood cultures NGTD but HR remains elevated * Will initiate Metoprolol BID, consult cardiology for further recommendations * Cardio consult - appreciate further recommendations * No specific treatment for this aside treating underlying pneumonia and sepsis. * Cardiology signs off * 11/02: Hrs remain stable in the 90s (4) Acute and chronic respiratory failure with hypoxia: Code(s): J96.21 - Acute and chronic respiratory failure with hypoxia Status: Acute Assessment and Plan: * arrived 88% on RA * at baseline requires 2 L nasal cannula at nighttime, now requiring 3 L at all times to maintain an O2 sat greater than 92%. * likely secondary to pneumonia * wean O2 as able * respiratory hygiene, incentive spirometry * 11/02: O2 93% on 2L * Has 02 set up at home but will obtain Home 02 eval as this is a relatively new requirement (5) Chronic anemia: Code(s): D64.9 - Anemia, unspecified Status: Chronic Assessment and Plan: * denies blood in his stool, has been dark but he is on iron * Hgb 7.5 upon admission, previously 10.1 on 07/10/2024 * Hx of chronic anemia of chronic disease * iron and t sat low. * check stool occult * transfuse if <7 * trend H&H * continue iron supplement * 11/02: Hgb 6.8 * Transfuse 1 unit PRBC * Will discuss with Heme/onc regarding possible need of Procrit (6) Heme positive stool: Code(s): R19.5 - Other fecal abnormalities Status: Acute Assessment and Plan: * Likely multifactorial - 2/2 to renal insufficiency and underlying iron deficiency * Hgb 7.5 upon admission * Hx: Chronic anemia, malignancy * transfuse if <7 * trend H&H * stool occult + * Heme consult * Iron infusion * consider Procrit if pt remains anemia * No indication for BM bx at this time * GI consult * Poor endoscopic candidate unless showing signs of active GI bleeding * Follow up with Oncology in outpt setting and if showing evidence of GI bleed - can be referred to GI (7) Adenocarcinoma, lung: Qualifiers: Laterality: right Qualified Code(s): C34.91 - Malignant neoplasm of unspecified part of right bronchus or lung Code(s): C34.90 - Malignant neoplasm of unspecified part of unspecified bronchus or lung Status: Acute Assessment and Plan: * hx of adenocarcinoma of the lung s/p chemo radiation. Previously required a PleurX for a chronic pleural effusion of the right side. * follows with Tarsha BEJARANO * needs PET scan as outpatient * Heme/onc consult to assess findings on CT chest * Reorder PET scan as outpt to assess interval increase consolidation in the right mid lung (8) COPD (chronic obstructive pulmonary disease): Qualifiers: COPD type: unspecified COPD Qualified Code(s): J44.9 - Chronic obstructive pulmonary disease, unspecified Code(s): J44.9 - Chronic obstructive pulmonary disease, unspecified Status: Acute Assessment and Plan: * Sourav PRN (9) Type 2 diabetes mellitus: Code(s): E11.9 - Type 2 diabetes mellitus without complications Status: Chronic Assessment and Plan: * A1c 6.4% on 06/11/2024 * hold metformin * hypoglycemia protocol * POC blood glucose ACHS * home medication: Continue Lantus 15 units HS. * low dose SSI (10) Chronic kidney disease, stage 3: Qualifiers: Chronic kidney disease stage 3 subtype: unspecified whether 3a or 3b Qualified Code(s): N18.30 - Chronic kidney disease, stage 3 unspecified Code(s): N18.30 - Chronic kidney disease, stage 3 unspecified Status: Chronic Assessment and Plan: * creatinine 1.21, BUN 23, GFR 57 upon admission * baseline creatinine: 1-1.2 * trend renal function * trend electrolytes, correct as needed (11) Obstructive sleep apnea: Code(s): G47.33 - Obstructive sleep apnea (adult) (pediatric) Status: Chronic Assessment and Plan: * wears 2L NC at night, currently requiring during daytime hours. Continue supplemental O2 to maintain O2 sat greater than 92%. Wean to baseline nocturnal needs as tolerated. Plan DVT Prophylaxis: scds Code Status: Full code DS: Summary Hospital Course Reason for hospitalization: Shortness of breath Hospital Course: Per HPI: 84 y/o M with PMH of COPD CAD CKD S3, chronic respiratory failure with hypoxia, colon cancer, diabetes, non-small cell lung cancer believed to be in remission, hyperlipidemia, hypertension, thrombocytopenia, chronic anemia, and ROBIN presents here with shortness of breath and cough. The patient presents here from home on 10/28 for further evaluation of cough and shortness of breath. The patient reports onset of symptoms approximately 3 weeks ago. Symptoms have been worsening over the last 2 weeks. He is now additionally reporting chills. He wears 2L at night, however has not had to wear 2L during daytime hours as well. He had an outpatient CT scan of his chest p erformed approximately 1 week ago which showed increasing consolidation in the right lung (malignancy versus infection versus atelectasis). Was prescribed medications but had not picked them up. He has a history of lung cancer that was previously treated with immunotherapy, felt to be in remission at this time. Followed with Tarsha BEJARANO for his oncology care. Initial VS at presentation: HR 117, RR 32, 136/78, and 88% on room air. Now 96% on 2L NC. ED workup showed: No leukocytosis, hemoglobin 7.5 (10.1 on 07/10/2024), high sodium 133, creatinine 1.21 and GFR 57, glucose 200, lactic 3.3, BNP 263 (normal for age). CXR showed development of diffuse right-sided airspace disease which may represent pneumonia or less likely asymmetric edema, small right pleural effusion. Hospital course: On 10/29, [facility] provider was alerted because patient appeared more confused/tachypneic with worsening O2 requirement and tachycardia in the 120s. Upon auscultation there was bibasilar crackles but no wheezing appreciated. He did have a fever 100.9? F, EKG showed sinus tachycardia with rate of 120. He was given 5 mg of IV metoprolol with heart rate improved to the lower 100s. When he was evaluated on 10/30, family was present and states that the patient appeared more alert and near his baseline. Heart rate was in the lower 100s as well, however the patient states that for the past several weeks/months he has been dealing with higher heart rate. He also endorses increase home O2 use, stating that he has been using oxygen at home regularly throughout the day for the past several weeks. Cardiology was consulted regarding the tachycardia, as patient is asymptomatic and does not appear to have any hemodynamic compromise, no specific treatments or further recommendations are required at this time besides adequate hydration. Oncology was consulted regarding CT scan findings showing increased interval consolidation in the right mid lung extending from the right hilum to the pleura, could very well be underlying pneumonia but unable to determine if worsening malignancy. PET scan was ordered by Oncology for the outpatient setting. Stool culture was obtained and was positive, GI was consulted, however given patient's comorbidities and underlying issues going on at the same time, he is not a candidate for endoscopic evaluation, the anemia could be multifactorial and GI will follow along if more obvious GI bleed is expected or the patient has worsening anemia. On 11/02, patient had a hemoglobin of 6.8 and required 1 unit PRBC. Repeat H&H showed increasing hemoglobin up to the high sevens and on 11/03, hemoglobin was 8.5. He was seen by her Oncology again on 11/03 after a soluble transferrin receptor blood test was ordered. This can be followed up in the outpatient setting by Oncology. PT/OT have been following the patient throughout hospitalization and recommend home with home health upon discharge. Patient still requiring baseline O2 requirement of 2 L nasal cannula. Attempts have been made to wean patient down but O2 saturations have subsequently decreased upon each attempt. Home O2 evaluation has been ordered for respiratory. Cultures show no growth to date, patient remains afebrile without leukocytosis. He is otherwise hemodynamically stable, however baseline O2 requirement is concerning and should be followed up with his regular PCP. I discussed these findings with the family extensively and they agree with discharge to home with home health. They state that the patient will be going back home where there are multiple family members that can help him out throughout the day. Some family members will be going vacation later this week but they state that there are even more family members they were able to help him out with any needs that he may have. Patient is very agreeable to discharge at this time and otherwise does not need to be hospitalized at this time. Plan for discharge home to home with home health. He will be prescribed 3 additional days of Augmentin. Status at Discharge Functional status at discharge: uses cane/walker Overall status at discharge: patient is progressing back to baseline Time Spent with Patient Time attestation: Total time spent providing and/or coordinating discharge services: 45 Exam Narrative: General: NAD, appears deconditioned Eyes: EOMI ENT: neck supple Cardiovascular: Regular rate and rhythm Respiratory: Clear to auscultation, respirations even and unlabored on 2L NC Gastrointestinal: Soft, non tender Genitourinary: no suprapubic tenderness Musculoskeletal: No edema Skin: warm, dry Neuro: Alert. Psych: Mood appropriate Const: Other: , male, elderly, chronically ill-appearing Resp: Other: Coarse breath sounds bilaterally, more significant at the bases. Nasal cannula place tolerating well. Cardio: Other: +murmur GI: Other: Abdomen soft, nondistended, nontender. Normoactive bowel sounds in all quadrants. Neuro: Other: A&O x4 Psych: Other: Good insight and judgment, pleasant DS: Data Data Completed and Pending Labs on day of discharge: Labs from last 24 hours 11/03/24 11/03/24 11/02/24 07:47 05:35 21:16 WBC 6.7 RBC 3.15 L Hgb 8.5 L Hct 28.4 L MCV 90.2 MCH 27.0 MCHC 29.9 L RDW 18.4 H Plt Count 203 MPV 9.6 Immature Gran % (Auto) 1.9 H Neut % (Auto) 77.2 H Lymph % (Auto) 10.2 L [place] % (Auto) 7.3 Eos % (Auto) 2.7 Baso % (Auto) 0.7 Lymph # (Auto) 0.68 L [place] # (Auto) 0.5 Eos # (Auto) 0.2 Baso # (Auto) 0.1 Abs Immat Gran (auto) 0.13 H Absolute Neuts (auto) 5.2 Absolute Nucleated RBC 0.000 Band Neutrophils % Not Reportable Nucleated RBC % 0.0 Platelet Estimate Adequate Hypochromasia 1+ Anisocytosis 1+ Schistocytes None seen Sodium 136 L Potassium 4.5 Chloride 104 Carbon Dioxide 25 Anion Gap 7 BUN 22 H Creatinine 1.18 Estim Creat Clear Calc 42 Estimated GFR 59 Glucose 181 H POC Capillary Glucose 160 H 247 H Calcium 8.8 Hilary Transferrin Receptr Total Bilirubin 0.2 AST 61 H ALT 65 H Alkaline Phosphatase 127 H Total Protein 6.9 Albumin 3.1 L 11/02/24 11/02/24 16:59 14:51 WBC RBC Hgb 7.9 L Hct 26.6 L MCV MCH MCHC RDW Plt Count MPV Immature Gran % (Auto) Neut % (Auto) Lymph % (Auto) [place] % (Auto) Eos % (Auto) Baso % (Auto) Lymph # (Auto) [place] # (Auto) Eos # (Auto) Baso # (Auto) Abs Immat Gran (auto) Absolute Neuts (auto) Absolute Nucleated RBC Band Neutrophils % Nucleated RBC % Platelet Estimate Hypochromasia Anisocytosis Schistocytes Sodium Potassium Chloride Carbon Dioxide Anion Gap BUN Creatinine Estim Creat Clear Calc Estimated GFR Glucose POC Capillary Glucose 256 H Calcium Hilary Transferrin Receptr Pending Total Bilirubin AST ALT Alkaline Phosphatase Total Protein Albumin Preliminary micro results at discharge 10/28/24 12:54 Blood Culture - Preliminary Blood 10/28/24 14:11 Blood Culture - Preliminary Blood Discharge Plan Discharge Attending physician on discharge: Finesse Cannon Consulting providers: Ifeoma Kincaid; Lazaro Prieto; Evon Rendon; Chet Willingham Discharging Clinician: Lazaro Prieto Anticipated Discharge Date/Time: 11/03/24 12:30 Patient Disposition: Home with Home Health Service Activity: as tolerated Diet: heart healthy Discharge Instructions: Care Coordination: Patient to have [facility] for PT/OT eval and treat, and detention. Their phone number is [phone], if you have any questions; they will contact you to schedule their visits. RN Please fax discharge instructions to [phone]. Discharge disposition: Home with Home Health Take medications as prescribed Monitor blood pressures Take caution while standing, rising, or moving Change positions slowly taking a break between each position change If you standing feel dizzy sit back down and take a break Encouraged to continue with yearly vaccinations Return to the emergency department if he developed sudden shortness of breath, chest pain, nausea, vomiting, upset stomach or intractable diarrhea Return to the emergency department if you develop fever greater than 101.5 Follow-up with the primary care physician within 1-2 weeks Thank you for [facility] for your healthcare needs Patient Instructions: Antibiotic Form Patient Language: Hungarian Stand Alone Forms: General Discharge Information Follow-up/Referrals: Chet Willingham MD [Physician, Hematology] Nato,Silvio Joshi MD [Primary Care Provider] Discharge Medications: New amoxicillin-pot clavulanate 875-125 mg tablet 1 tablet PO Q12H 3 Days Qty: 6 0RF Continued levothyroxine 50 mcg tablet 50 mcg PO DAILY tamsulosin 0.4 mg capsule 0.4 mg PO HS ferrous sulfate [FeroSul] 325 mg (65 mg iron) tablet 325 mg PO DAILY cetirizine [Zyrtec] 10 mg tablet 10 mg PO DAILY cyanocobalamin (vitamin B-12) 1,000 mcg tablet 1,000 mcg PO DAILY diphenhydramine-acetaminophen [Tylenol PM Extra Strength] 25-500 mg tablet 1 tablet PO HS PRN (Reason: pain) citalopram 20 mg tablet 20 mg PO DAILY lorazepam 0.5 mg tablet 0.5 mg PO TID metformin 1,000 mg tablet 1,000 mg PO BID rosuvastatin 20 mg tablet 20 mg PO DAILY insulin degludec [Tresiba FlexTouch U-100] 100 unit/mL (3 mL) insulin pen 15 unit SUBCUT HS Qty: 15 0RF Rx Instructions: please increase dose to 18 units while you are taking prednisone Trelegy Ellipta 100-62.5-25 mcg blister with device 1 inh inhalation Q24H 30 Days Qty: 60 11RF Rx Instructions: Rinse and spit after use. Date of admission: 08/25/25 16:12 Primary Care Provider: Nato,Silvio Joshi Admitting Provider: Arthur Gibson Attending physician on admission: Arthur Gibson Condition: Stable Quality VTE Prophylaxis VTE prophylaxis: mechanical ordered
--- NOTE | 2024-11-03 16:31 | PCRCNOTE ---
pt requires no change to home oxygen therapy order. 2L with rest, 2L with activity.
== END 2024-11-03 16:50 | disposition home health service (06) | DRG 871 ==
LOC: ANHED 12:23 → ANH3MED 16:08
PROVIDERS: Internal Medicine; Physician Assistant; Student in an Organized Health Care Education/Training Program; Admitting Provider Internal Medicine; Emergency Provider Emergency Medicine; PCP Internal Medicine; Visit Provider Physician Assistant
DX: A41.9 Sepsis, unspecified organism (principal); J18.9 Pneumonia, unspecified organism; J96.21 Acute and chronic respiratory failure with hypoxia; C34.91 Malignant neoplasm of unspecified part of right bronchus or lung; J44.0 Chronic obstructive pulmonary disease with (acute) lower respiratory infection; R65.20 Severe sepsis without septic shock; I25.10 Atherosclerotic heart disease of native coronary artery without angina pectoris; D69.6 Thrombocytopenia, unspecified; G47.33 Obstructive sleep apnea (adult) (pediatric); E11.22 Type 2 diabetes mellitus with diabetic chronic kidney disease; I12.9 Hypertensive chronic kidney disease with stage 1 through stage 4 chronic kidney disease, or unspecified chronic kidney disease; D63.1 Anemia in chronic kidney disease; D50.9 Iron deficiency anemia, unspecified; N18.30 Chronic kidney disease, stage 3 unspecified; R19.5 Other fecal abnormalities; Z79.4 Long term (current) use of insulin; Z79.51 Long term (current) use of inhaled steroids; Z79.84 Long term (current) use of oral hypoglycemic drugs; Z79.899 Other long term (current) drug therapy; Z87.891 Personal history of nicotine dependence; Z90.49 Acquired absence of other specified parts of digestive tract; Z92.21 Personal history of antineoplastic chemotherapy; Z92.3 Personal history of irradiation; Z85.038 Personal history of other malignant neoplasm of large intestine
CPT/HCPCS: 36415; 36430; 71045; 71046; 80053; 82274; 82607; 82728; 82746; 82948; 83540; 83550; 83605; 83880; 84145; 84238; 84443; 85014; 85018; 85025; 86850; 86900; 86901; 86923; 87040; 87070; 87205; 87641; 93005; 94618; 94640; 96365; 96366; 96368; 96375; 97110; 97116; 97161; 97166; 97530; 99285; A9270; G0378; J0456; J0616; J0696; J1642; J1756; J1815; J7030; J7050; P9016

== ENCOUNTER 2024-11-19 11:59 | Outpatient (CLI) | payer MEDICARE, SELFPAY ==
--- OUTSIDE RECORDS SUMMARY | 2005-02-25 04:15 | XMS_ITS | Continuity of Care Document ---
Author Organization [facility] Address [id number] [place] [address] [address] [place] [address] Phone Care Team Providers Care Hull Molder Name Role Phone Shultz OD, Remington Unavailable Unavailable Advance Directives Directive Yes / No Effective Date File Name No Information Encounters Encounter Description Practice Location Reason(s) For Visit Diagnoses Date Provider Providers Copied on Encounter [facility], [address], [place], [place], [id number], [place] tel:[phone] [facility] No Information Dec-2 3-200 5 Shultz OD Remington. [address] [facility] , [address], [place], [address], [place]. tel:[phone] Referring Provider: Silvio Dutton, [address] [place] [address], [facility]. tel:[phone] Family History Family Member Type Diagnosis Age At Onset No Information Payers Payer name Insurance type Covered republican ID Authoriza tijed(s) [employer] Plan CI [id number] Social History Type Description Quantity Date Captured [...]
--- NOTE | ~2024-11-19 | PE_ITS ---
EXAMINATION: PET skull to mid thigh DATE: 11/19/2024 14:13 INDICATION: Non-small cell right lung cancer TECHNIQUE: Blood glucose level was 70 mg/dL. 80.765 mCi of 18-fluorodeoxyglucose (18-FDG) was administered i.v. Low dose computed tomography (CT) images were acquired from the base of the brain to the proximal thighs for attenuation correction and anatomic localization. Positron emission tomography (PET) images were acquired in the same distribution beginning 56 minutes after injection. Images including fused PET/CT images were reconstructed in axial, coronal, and sagittal planes. Automated exposure control technique was employed. The dose- length product was 1242.18mGy-cm. COMPARISON: PET/CT dated 09/15/[address] of the chest, abdomen and pelvis dated 10/20/2023 FINDINGS: Head/neck: There is symmetric increased activity in the oral cavity, palatine tonsils, submandibular glands and ocular muscles without CT correlate, likely physiologic. Right-sided prominent atherosclerotic calcification is at the bilateral carotid bulbs. No pathologically enlarged cervical lymphadenopathy or suspicious foci of increased FDG uptake in the visualized head or neck. Chest: Left internal jugular central venous port catheter with distal tip in the high right atrium. There is increased FDG uptake with maximal SUV of up to 12.2 situated peripheral and bandlike consolidation in the anterior segment of the right upper lobe. Small region of consolidation at the medial aspect of the left lower lobe most prominent at the superior segment were there is mild uptake with maximal SUV of 3.3. Small loculated right pleural effusion. There are small calcified nodules in the right lung along with calcified right hilar and mediastinal lymph nodes consistent with old granulomatous disease. Heart size is normal. Atherosclerotic coronary artery catheter can. Aortic valve calcification. No pericardial effusion. Thoracic aorta is normal in caliber. The previously enlarged and FDG avid right paratracheal lymph node with a few smaller FDG avid mediastinal lymph nodes size with normalization of the previously elevated increased FDG uptake consistent with response to treatment of metastatic disease. No pathologically enlarged or FDG avid thoracic lymphadenopathy. Abdomen/pelvis/proximal thighs: Physiologic renal accumulation and excretion of FDG activity in the kidneys, bladder and along portions of ureters. Normal degree and heterogenous pattern of increased uptake throughout the liver without radiologic correlate or dominant FDG avid lesion. Cholecystectomy clips at gallbladder fossa. The pancreas, spleen and bilateral adrenal glands are normal. Prominent uptake scattered throughout the bowels without radiologic correlate, also likely physiologic. Normal appendix. No other abnormal foci of increased FDG uptake or pathologically enlarged lymphadenopathy in the abdomen, pelvis or proximal thighs. Musculoskeletal: No suspicious lytic, blastic or abnormally FDG avid bone lesions. Tiny focus of mild likely extravasated activity at the site of injection at the left antecubital fossa. IMPRESSION: 1. Diffuse increased uptake along the peripheral and bandlike regions of consolidation in the anterior segment of the right upper lobe. The extend of FDG uptake associated with the consolidation and the pattern of consolidation favors pneumonia or pneumonitis over recurrent malignancy although superimposed malignancy cannot be excluded. 2. Additional consolidation in the left lower lobe with mild FDG uptake also concerning for pneumonia. 3. Interval decrease in size of a chronic small loculated right pleural effusion. 4. Decrease in size and degree of FDG uptake associated with previous noted enlarged and FDG avid mediastinal lymphadenopathy consistent with response to treatment of metastatic disease. No recently enlarging or abnormally FDG avid lymphadenopathy to suggest metastatic disease. 5. No lesion suspicious for primary malignancy or metastatic disease in the abdomen or pelvis. Reviewed, dictated and finalized at location A. IMPRESSION: 1. Diffuse increased uptake along the peripheral and bandlike regions of consol idation in the anterior segment of the right upper lobe. The extend of FDG upta ke associated with the consolidation and the pattern of consolidation favors pn eumonia or pneumonitis over recurrent malignancy although superimposed malignan cy cannot be excluded. 2. Additional consolidation in the left lower lobe with mild FDG uptake also co ncerning for pneumonia. 3. Interval decrease in size of a chronic small loculated right pleural effusio n. 4. Decrease in size and degree of FDG uptake associated with previous noted enl arged and FDG avid mediastinal lymphadenopathy consistent with response to henry tment of metastatic disease. No recently enlarging or abnormally FDG avid lymph adenopathy to suggest metastatic disease. 5. No lesion suspicious for primary malignancy or metastatic disease in the abd omen or pelvis.
--- OUTSIDE RECORDS SUMMARY | 2024-11-19 13:56 | XMS_ITS | Clinical Summary ---
Author Organization [facility] Address [address] [place] [address] Phone Care Team Providers Care Research Agricultural Engineer Name Role Phone Silvio Dutton MD Primary Care Provider [phone] Allergies Active Allergy Reactions Criticality Noted Date [...] Encounters Date Type Department Care Team Description 11/11/2024 Orders Only [facility] Oncology and Hematology - [address] [place] [id number] Chet Willingham MD Non-small cell lung cancer, unspecified laterality (CMS/HCC) 10/28/2024 Telephone [facility] Oncology and Hematology - [address] [place] [address] Chet Willingham MD Upper Respiratory Symptoms 10/28/2024 Telephone [facility] Oncology and Hematology - [address] [place] [address] Chet Willingham MD Follow up 10/28/2024 Orders Only [facility] Oncology and Hematology - [address] [place] [address] Chet Willingham MD Non-small cell lung cancer, unspecified laterality (CMS/HCC) 10/24/2024 Orders Only [facility] Oncology and Hematology - [id number] Chet Willingham MD 10/23/2024 External Device Data STL ABSTRACTION Provider, Abstract 10/22/2024 External Device Data STL ABSTRACTION Provider, Abstract 10/16/2024 Orders Only [facility] Oncology and Hematology - [address] [place] [id number] Chet Willingham MD Non-small cell lung cancer, unspecified laterality (CMS/HCC) (Primary Dx) 10/14/2024 Orders Only [facility] Oncology and Hematology - [address] [place] [id number] Chet Willingham MD Non-small cell lung cancer, unspecified laterality (CMS/HCC) 10/09/2024 External Device Data STL ABSTRACTION Provider, Abstract 09/30/2024 Orders Only [facility] Oncology and Hematology - [address] [place] [id number] Chet Willingham MD Non-small cell lung cancer, unspecified laterality (CMS/HCC) 09/18/2024 External Device Data STL ABSTRACTION Provider, Abstract 09/18/2024 External Device Data STL ABSTRACTION Provider, Abstract 09/18/2024 External Device Data STL ABSTRACTION Provider, Abstract 09/16/2024 Orders Only [facility] Oncology and Hematology - [address] [place] [address] Chet Willingham MD Non-small cell lung cancer, unspecified laterality (CMS/HCC) 09/02/2024 Orders Only [facility] Oncology and Hematology - [address] [place] [id number] Chet Willingham MD Non-small cell lung cancer, unspecified laterality (CMS/HCC) 08/20/2024 External Device Data STL ABSTRACTION Provider, Abstract 08/19/2024 Orders Only [facility] Oncology and Hematology - [address] [place] [address] Chet Willingham MD Non-small cell [...] Comments Blood Pressure 127/58 04/02/2024 9:45 AM CRIMINAL JUSTICE PROFESSOR Pulse 118 04/02/2024 9:45 AM CRIMINAL JUSTICE PROFESSOR Temperature 36.1 C (96.9 F) 04/02/2024 9:45 AM CRIMINAL JUSTICE PROFESSOR Respiratory Rate 15 04/02/2024 9:45 AM CRIMINAL JUSTICE PROFESSOR Oxygen Saturation 93% 04/02/2024 9:45 AM CRIMINAL JUSTICE PROFESSOR Inhaled Oxygen Concentration - - Weight 80.3 kg (177 lb) 04/02/2024 9:45 AM CRIMINAL JUSTICE PROFESSOR Height 172.7 cm (5' 8) 01/23/2024 12:17 PM CRIMINAL JUSTICE PROFESSOR Body Mass Index 26.91 01/23/2024 12:17 PM CRIMINAL JUSTICE PROFESSOR Plan of Treatment Upcoming Encounters Date Type Department Care Team (Late st Contact Info) Description 11/27/2024 9:45 AM CDT Office Visit [facility] Oncology and Hematology [address] [place] [address] Chet Willingham MD [address] [facility] [employer] [address] [place] [address] Health Maintenance Due Date Last [...] Months Insurance MEDICARE PART A AND B [facility] MEDICARE PART A AND B BS SUPP Care Teams Research Agricultural Engineer Relationship Specialty Start Date End Date Silvio Dutton MD [address] [place] [id number] PCP - General Internal Medicine 10/18/22
--- OUTSIDE RECORDS SUMMARY | 2024-11-19 13:56 | XMS_ITS | Encounter Summary ---
Author Organization [facility] Address [address] [place] [address] Care Team Providers Care Lumber Cutter Name Role Phone Unavailable Primary Care Provider Unavailabl e Encounter Details Date Type Department Care Team (Late st Contact Info) Description 08/15/[address] [facility] - Pathology Lab [address] [place] [address] Geovanni Perez MD [address] [address] Anemia, unspecified Social History Tobacco [...] AM CDT) Case Report Flow Cytometry Case: [id number] Authorizing Provider: Geovanni Perez Collected: 08/15/2023 09:30 AM MD Tevin Ordering Location: [facility] - Received: 08/15/2023 11:35 AM Pathology Lab Pathologist: Yessenia Thorne MD Specimen: Bone Marrow 08/15/2023 3:51 PM CDT [facility] Amended Report Inadvertently omitted was the final diagnosis. This was added. 08/15/2023 3:51 PM CDT [facility] Final Diagnosis Bone marrow, flow cytometry: - No clonal B-cell or increased blast population detected 08/15/2023 3:51 PM T [facility] Amendment electronically signed by Yessenia Thorne MD on 08/15/2023 at 1551 CDT at 1513 CDT Flow Cytometry Interpretation Viability: 92% B-cells: polytypic, kappa:lambda ratio 2:1 T-cells: not increased Blasts: not increased, 0.5% of overall events are myeloblasts and 0.7% of overall events represent hematogones A bone marrow aspirate smear prepared from the flow cytometry specimen has been reviewed for manufacturing quality technician purposes. 08/15/2023 3:51 PM [facility] Flow Cytometry Results Differential Result Comment Flow Cell Count /uL 36,600 Total Viability % 92.0 Lymphocytes % 8 Dim CD45 Region % 4 Monocytes % 5 Granulocytes % 83 08/15/2023 3:51 PM CDT [facility] Reason for test Anemia, unspecified 285.9 08/15/2023 3:51 PM [facility] Client Specimen ID # [id number] 08/15/2023 3:51 PM [facility] Number of markers 19 were performed. A-2 Flow CD10 A-3 Flow CD13 A-5 Flow CD20 A-11 Flow CD2 A-13 Flow CD14 A-16 Flow CD117 A-17 Flow CD11b A-18 Flow CD11c A-1 Flow CD5 A-4 Flow CD19 A-6 Flow CD33 A-7 Flow CD34 A-8 Flow CD45 A-12 Flow CD7 A-14 Flow CD56 A-15 Flow CD64 A-9 [place]+CD19+ A-10 Lambda+CD19+ A-19 Flow HLA-DR 08/15/2023 3:51 PM CDT [facility] Pathologist Location at [facility] [address] 08/15/2023 3:51 PM [facility] Disclaimer Test performed at [facility], [address] [place] [address], [id number]. *The established laboratory minimum viability is 70%. [...] complexity clinical testing. 08/15/2023 3:51 PM CDT [facility] Embedded Images 3:51 PM CDT [facility] Pathology/Cytolo gy BONE MARROW SPECIMEN / Unknown 08/15/2023 9:30 AM CDT 08/15/2023 11:35 AM CDT Geovanni Perez MD LAB - PATHO LOGY/CYTOLOGY ORDERABLES Edited Result - Final Performing Organization Address City/State/[facility] Co de Phone Number [facility] [address] [phone] documented in this encounter Visit Diagnoses Diagnosis Anemia, unspecified documented in this encounter
--- OUTSIDE RECORDS SUMMARY | 2024-11-19 13:56 | XMS_ITS | Clinical Summary ---
Author Organization [facility] Address [address] [place] [address] Care Team Providers Care Director Physical Therapy Name Role Phone Unavailable Primary Care Provider Unavailabl e Source Comments [facility],non-owned Affiliates and Associated Physician Practices is amultiple site organization consisting of ambulatory clinics and hospital sitesin [place], [place], [place] and [place]. This disclosure is being madepursuant to the Care Everywhere program and may not contain all information available regarding this patient. Last updated 17.[facility] [employer] Social History Tobacco Use Types Packs/Day Years [...] yrs (1 - 1-dose 75+ series) 2017 DEPRESSION SCREENING 03/06/2024 COVID-19 VACCINE ( - 2023-2 5 season) 2024 INFLUENZA VACCINE (#1) 2024 HEPATITIS B VACCINE [...] age to complete this topic Insurance MEDICARE [employer]
--- OUTSIDE RECORDS SUMMARY | 2024-11-19 13:56 | XMS_ITS | Encounter Summary ---
Author Organization [facility] Address [address] [place] [address] Care Team Providers Care Membership Correspondent Name Role Phone Unavailable Primary Care Provider Unavailabl e Encounter Details Date Type Department Care Team (Late st Contact Info) Description 08/16/2023 Lab Requisition [facility] - Pathology Lab [address] [place] [address] Geovanni Perez MD [address] [facility] [address] [place] [id number] Illness, unspecified Social History Tobacco Use [...] Report Bone Marrow Patholog y Report Case: [id number] Authorizing Provider: Geovanni Perez Collected: 08/15/2023 09:30 AM MD Tevin Ordering Location: [facility] - Received: 08/16/2023 02:54 PM [...] or metastatic disease seen 08/17/2023 1:37 PM [facility] at 1337 CDT Peripheral Smear Description Normocytic anemia, thrombocytopenia. Leukocyte number: normal. Granulocyte morphology: normal. Lymphocyte morphology: normal. Erythrocyte number: decreased. Erythrocyte morphology: normocytic. Anisopoikilocytosis: mild. Polychromasia: mild. Platelet number: decreased. Platelet morphology: normal. 08/17/2023 1:37 PM [facility] Bone Marrow Aspirate [...] stain): no ring sideroblasts. 08/17/2023 1:37 PM [facility] Bone Marrow Core [...] similar to core biopsy. 08/17/2023 1:37 PM [facility] Flow Cytometry Summary Flow cytometry identified no clonal B-cell or increased blast population ([id number]). 08/17/2023 1:37 PM [facility] Clinical History The patient is an 83-year-old male with history of T1bN2/3 unresectable non-small cell lung adenocarcinoma (diagnosed 09/06/2022) s/p radiation (completed 12/19/2022) and chemotherapy, currently on maintenance durvalumab. He presents for follow up with fatigue and found to be anemic and thrombocytopenic. 08/17/2023 1:37 PM T [facility] Materials Received Received are 23 slide(s) and 2 blocks labeled [id number] along with a copy of the outside pathology report. [place] [address] . All original materials are returned to the referring institution, along with a copy of our final report. 08/17/2023 1:37 PM CDT [facility] Microscopic Description No overt morphologic features of dyspoiesis are seen. 08/17/2023 1:37 PM CDT [facility] Pathologist Location at [facility] 08/17/2023 1:37 PM CDT [facility] Disclaimer The performance characteristics of all immunohistochemical and indirect immunofluorescence stains (if any) cited in this report were determined by the Histopathology Laboratory of [facility]. Some of these tests were [...] attending (teaching) pathologist. 08/17/2023 1:37 PM T [facility] Embedded Images 08/17/2023 1:37 PM CDT [facility] Pathology/Cytology BONE MARROW SPECIMEN / Unknown 08/15/2023 9:30 AM CDT 08/16/2023 2:54 PM CDT Miscellaneous samples (specimen) BONE MARROW SPECIMEN / Unknown 08/15/2023 9:30 AM CDT 08/16/2023 2:54 PM CDT us Geovanni Perez MD LAB - PATHOLOGY/CYT OLOGY ORDERABLES Final Result [facility] [address] [place], [place] [id number] [place] [address] documented in this encounter Visit Diagnoses Diagnosis Illness, unspecified documented in this encounter
== END 2024-11-19 12:00 | disposition home or self-care (01) ==
PROVIDERS: PCP Internal Medicine; Visit Provider Internal Medicine Hematology & Oncology
DX: C34.91 Malignant neoplasm of unspecified part of right bronchus or lung (principal); C34.2 Malignant neoplasm of middle lobe, bronchus or lung
CPT/HCPCS: 78815; A9552

== ENCOUNTER 2025-02-11 08:31 | Outpatient (CLI) | payer MEDICARE, SELFPAY ==
--- NOTE | ~2025-02-11 | XR_ITS ---
EXAMINATION: XR chest 2V, 02/11/2025 8:52 [employer] SPECIALIST HISTORY: J44.1 - Chronic obstructive pulmonary disease with (acute... COMPARISON: No comparisons available. Technique: 2 views obtained. Findings: COPD changes. Small pleural effusions. There is abnormal density within the right upper lobe and the left lower lobe which appear progressed in the right upper lobe compared to the prior study. Infiltrates noted previously in the right lower lobe have resolved. No pneumothorax. Heart is normal size. Mediastinal and hilar contours are within normal limits. Bony thorax no acute abnormality. Left Mediport. Impression: Possible right upper lobe pneumonia. Other etiologies not excluded. Follow-up suggested to assess stability or resolution Reviewed, dictated and finalized at location P. T SPECIALIST Impression: Possible right upper lobe pneumonia. Other etiologies not excluded. Follow-up s uggested to assess stability or resolution
[2025-02-11 09:19] LABS: Hematocrit 33.8 % (42.0-52.0); Hemoglobin 10.0 g/dL (14.0-18.0); Immature Granulocyte Percent A 2.5 % (0-0.5); Lymphocytes Absolute Auto 0.99 K/mm3 (0.9-3.2); Mean Corpuscular HGB Conc 29.6 g/dl (32-36); Mean Corpuscular Hemoglobin 27.8 pg (26-34); Mean Corpuscular Volume 93.9 fl (80-100); Nucleated Red Blood Cells Absolute Auto 0.030 K/mm3 (0.0-0.012); Nucleated Red Blood Cells Perc 0.4 % (0.0-0.2); Platelet Count Result 169 k/mm3 (150-375); Red Blood Count 3.60 M/mm3 (4.6-6.20); White Blood Count 7.6 K/mm3 (4.5-10.0)
[2025-02-11 10:11] LABS: Anisocytosis 2+; Hypochromasia 1+; Microcytosis 1+ (NORMAL)
[2025-02-11 10:12] LABS: Schistocytes None Seen
== END 2025-02-11 08:32 | disposition home or self-care (01) ==
PROVIDERS: PCP Internal Medicine; Visit Provider Internal Medicine Critical Care Medicine
DX: R91.8 Other nonspecific abnormal finding of lung field (principal); J44.1 Chronic obstructive pulmonary disease with (acute) exacerbation
CPT/HCPCS: 36415; 71046; 85025

== ENCOUNTER 2025-02-19 10:15 | Outpatient (CLI) | payer MEDICARE, SELFPAY ==
--- NOTE | ~2025-02-19 | CT_ITS ---
EXAMINATION:CT diagnostic chest w con DATE: 02/19/2025 10:52 INDICATION: Small cell lung cancer TECHNIQUE: Computed tomography (CT) of the chest was performed without intravenous contrast. The dose-length product (DLP) was 367.57 mGy-cm. COMPARISON: October 22, 2024 FINDINGS: Increased scarring and cavitation in area of previously described right upper lobe fibrosing changes with overall size measuring 8.7 x 3.9 cm compared to 4.4 x 3.5 cm on the previous exam; however, the area of cavitation within this area of fibrosing appearing changes is significantly increased in size. No discretely defined mass seen. Atelectatic/consolidative changes in the medial segment left lower lobe unchanged. Small right pleural effusion with right basilar fibrotic and atelectatic appearing changes also unchanged. 10 mm focal area of probable atelectasis along the pleural margin of the posterior or apical segment right lower lobe image 50 series 4 is new. Heart and great vessels are stable. Bones are intact. No acute process seen in the visualized portions of the upper abdomen or extrathoracic soft tissues. IMPRESSION: Increased size of right apical area of posttreatment changes with increased dimensions largely attributable to increased area of cavitation. A new small 10 mm area of probable atelectasis also noted in the right lower lobe as above. Continued surveillance recommended. Reviewed, dictated and finalized at location A. [facility] [facility] [employer] IMPRESSION: Increased size of right apical area of posttreatment changes with increased dimensions largely attributable to increased area of cavitation. A n ew small 10 mm area of probable atelectasis also noted in the right lower lobe as above. Continued surveillance recommended.
[2025-02-19 10:40] LABS: Estimated Glomerular Filt Rate > 60
== END 2025-02-19 10:16 | disposition home or self-care (01) ==
LOC: MICIMG 10:15
PROVIDERS: PCP Internal Medicine; Visit Provider Internal Medicine Hematology & Oncology
DX: C34.90 Malignant neoplasm of unspecified part of unspecified bronchus or lung (principal)
CPT/HCPCS: 71260; Q9967